=== PATIENT | male | born 1970 | race Two or more races ===

== ENCOUNTER 2019-03-26 04:32 | Emergency (ER) | payer OTHER ==
[~2019-03-26] VITALS: Ht 200.7 cm; Wt 95.3 kg
[2019-03-26 04:40] VITALS: BP 146/89
[2019-03-26] MEDS ORDERED: ONDANSETRON HCL 4 MG/2 ML VIAL IV ONE (05:30)
[2019-03-26] MEDS ORDERED: MORPHINE SULFATE 4 MG/ML SYR/VIAL IV ONE (05:30)
[2019-03-26 05:54] LABS: Basophils # (auto) 0 uL; Basophils % (auto) 1.1 % (0.0-2.0); Eosinophils # (auto) 0.1 uL; Eosinophils % (auto) 2.3 % (0.0-7.0); Hematocrit 42.1 % (41.0-53.0); Hemoglobin 14.4 g/dL (13.5-17.5); Lymphocytes # (auto) 0.7 uL; Lymphocytes % (auto) 19.2 % (10.0-50.0); Mean Corpuscular Hemoglobin 31.2 pg (28.0-32.0); Mean Corpuscular Hgb Conc. 34.2 g/dL (32.0-36.0); Mean Corpuscular Volume 91.2 fL (80.0-100.0); Monocytes # (auto) 0.5 uL; Monocytes % (auto) 12.8 % (0.0-12.0); Neutrophils # (auto) 2.4 uL; Neutrophils % (auto) 64.6 % (37.0-80.0); Nucleated Red Blood Cells % 0.2 %; Platelet Count (auto) 149 10^3/uL (140-450); Red Blood Cells 4.62 10^6/uL (4.5-5.90); White Blood Cell 3.7 10^3/uL (4.4-10.8)
[2019-03-26 06:11] LABS: Albumin 3.5 g/dL (3.4-5.0); Calcium 8.1 mg/dL (8.5-10.1); INR 1.01 (0.9-1.15); Partial Thromboplastin Time 25.6 sec (23.64-32.05)
[2019-03-26 06:23] LABS: Bilirubin, Total 0.8 mg/dL (0.2-1.0); Total Protein 7.7 g/dL (6.4-8.2)
[2019-03-26 07:45] LABS: BUN/Creatinine Ratio 10.7
== END 2019-03-26 07:07 | disposition left against medical advice (07) ==
LOC: ER 04:32 → EDBD 04:32 → ER 07:07
DX: M79.601 Pain in right arm (principal); R51 Headache; Z53.21 Procedure and treatment not carried out due to patient leaving prior to being seen by health care provider; W19.XXXA Unspecified fall, initial encounter; Y93.89 Activity, other specified; Y92.89 Other specified places as the place of occurrence of the external cause; Y99.8 Other external cause status
CPT/HCPCS: 36415; 70450; 72125; 73090; 80053; 80320; 85025; 85610; 85730; 99281; J2270; J2405

== ENCOUNTER 2019-12-26 20:50 | Emergency (ER) | payer OTHER ==
[~2019-12-26] VITALS: Ht 195.6 cm; Wt 79.8 kg
[2019-12-26 22:14] VITALS: BP 129/81
== END 2019-12-27 04:54 | disposition left against medical advice (07) ==
LOC: EDBD 20:50 → ER 20:50
DX: R07.89 Other chest pain (principal); F41.9 Anxiety disorder, unspecified

== ENCOUNTER 2020-08-21 17:03 | Emergency (ER) | payer OTHER ==
[~2020-08-21] VITALS: Ht 190.5 cm; Wt 81.6 kg
[2020-08-21 17:25] VITALS: BP 112/80
== END 2020-08-21 17:52 | disposition left against medical advice (07) ==
LOC: EDBD 17:03 → ER 17:03
DX: R51.9 Headache, unspecified (principal); Z53.21 Procedure and treatment not carried out due to patient leaving prior to being seen by health care provider

== ENCOUNTER 2020-08-21 20:30 | Emergency (ER) | payer OTHER ==
[~2020-08-21] VITALS: Ht 193 cm; Wt 81.6 kg
[2020-08-21] MEDS ORDERED: LORazepam 2MG/ML-1ML VIAL IV ONE (21:00)
[2020-08-21 21:08] LABS: Basophils # (auto) 0.1 10 ^3/uL (0-0.2); Basophils % (auto) 1.9 % (0.0-2.0); Eosinophils # (auto) 0.1 10 ^3/uL (0-0.8); Eosinophils % (auto) 0.8 % (0.0-7.0); Hematocrit 43.3 % (41.0-53.0); Lymphocytes # (auto) 2.2 10 ^3/uL (0.4-5.4); Lymphocytes % (auto) 33.1 % (10.0-50.0); Mean Corpuscular Hgb Conc. 34.7 g/dL (32.0-36.0); Mean Corpuscular Volume 95.1 fL (80.0-100.0); Monocytes # (auto) 0.7 10 ^3/uL (0-1.3); Monocytes % (auto) 9.7 % (0.0-12.0); Neutrophils # (auto) 3.7 10 ^3/uL (1.6-8.6); Neutrophils % (auto) 54.5 % (37.0-80.0); Nucleated Red Blood Cells % 0.1 %; Platelet Count (auto) 168 10^3/uL (140-450); Red Blood Cells 4.55 10^6/uL (4.5-5.90); Red Cell Distribution Width 13.6 % (11.8-14.3); White Blood Cell 6.8 10^3/uL (4.4-10.8)
[2020-08-21 21:24] LABS: Albumin 3.8 g/dL (3.4-5.0); Calcium 8.8 mg/dL (8.5-10.1); Potassium 3.1 mmol/L (3.5-5.1)
[2020-08-21 21:27] LABS: BUN/Creatinine Ratio 6.2; Bilirubin, Total 2.2 mg/dL (0.2-1.0); Total Protein 8.1 g/dL (6.4-8.2)
[2020-08-21] MEDS ORDERED: KETOROLAC TROMETH 30 MG/ML 1ML VIAL IV ONE (21:45)
[2020-08-22] MEDS ORDERED: POTASSIUM EFFERVESENT TAB 25 MEQ PO ONE (01:30)
[2020-08-22] MEDS ORDERED: SODIUM CHLORIDE 0.9% 1,000 ML IV ONE (02:00)
[2020-08-22 05:00] VITALS: BP 124/75
== END 2020-08-22 06:31 | disposition home or self-care (01) ==
LOC: EDBD 20:30 → ER 20:44
DX: S09.8XXA Other specified injuries of head, initial encounter (principal); F10.920 Alcohol use, unspecified with intoxication, uncomplicated; E87.6 Hypokalemia; X58.XXXA Exposure to other specified factors, initial encounter; Y93.89 Activity, other specified; Y92.89 Other specified places as the place of occurrence of the external cause; Y99.8 Other external cause status
CPT/HCPCS: 36415; 70450; 72125; 73700; 80053; 80320; 85025; 93005; 96361; 96374; 96375; 99285; J1885; J2060

== ENCOUNTER 2020-10-31 09:52 | Inpatient (IN) | payer OTHER ==
[~2020-10-31] VITALS: Ht 198.1 cm; Wt 95.1 kg
[2020-10-31] MEDS ORDERED: chlordiazePOXIDE HCL 25 MG CAP PO ONE (10:15)
[2020-10-31] MEDS ORDERED: SODIUM CHLORIDE 0.9% 1,000 ML IV ONE ×2 (10:15)
[2020-10-31 10:41] LABS: Eosinophils # (auto) 0 10 ^3/uL (0-0.8); Lymphocytes # (auto) 0.7 10 ^3/uL (0.4-5.4); Mean Corpuscular Volume 100.5 fL (80.0-100.0)
[2020-10-31 10:42] LABS: Basophils # (auto) 0.1 10 ^3/uL (0-0.2); Basophils % (auto) 0.8 % (0.0-2.0); Eosinophils % (auto) 0.1 % (0.0-7.0); Hematocrit 35.8 % (41.0-53.0); Hemoglobin 12.5 g/dL (13.5-17.5); Mean Corpuscular Hemoglobin 34.9 pg (28.0-32.0); Mean Corpuscular Hgb Conc. 34.7 g/dL (32.0-36.0); Monocytes # (auto) 1.3 10 ^3/uL (0-1.3); Monocytes % (auto) 12.4 % (0.0-12.0); Neutrophils # (auto) 8.1 10 ^3/uL (1.6-8.6); Neutrophils % (auto) 79.7 % (37.0-80.0); Nucleated Red Blood Cells % 0.1 %; Red Blood Cells 3.57 10^6/uL (4.5-5.90); Red Cell Distribution Width 16.4 % (11.8-14.3); White Blood Cell 10.2 10^3/uL (4.4-10.8)
[2020-10-31 10:55] LABS: INR 1.56 (0.9-1.15); Partial Thromboplastin Time 38.7 sec (23.0-31.2)
[2020-10-31 11:06] LABS: Albumin 2.1 g/dL (3.4-5.0); Anion Gap 17 (5-15); Blood Urea Nitrogen 8 mg/dL (7-18); Carbon Dioxide 29 mmol/L (21-32); Chloride 87 mmol/L (98-107); Glucose 103 mg/dL (74-106); Sodium 133 mmol/L (136-145)
[2020-10-31 11:11] LABS: Alanine Aminotransferase 51 U/L (16-61); Alkaline Phosphatase 178 U/L (45-117); Aspartate Aminotransferase 319 U/L (15-37); Bilirubin, Total 19.4 mg/dL (0.2-1.0); GFR African American 132 mL/min; GFR Non-African American 109 mL/min; Total Protein 6.6 g/dL (6.4-8.2)
[2020-10-31 11:23] LABS: Potassium 2.7 mmol/L (3.5-5.1)
[2020-10-31] MEDS ORDERED: POTASSIUM EFFERVESENT TAB 25 MEQ PO ONE (11:30)
[2020-10-31] MEDS ORDERED: MORPHINE SULF INJ 2 MG/ML SYRINGE 1ML IV PRN (17:00)
[2020-10-31] MEDS ORDERED: NITROGLYCERIN 0.4 MG SL TAB SL PRN (17:00)
[2020-10-31] MEDS ORDERED: PHYTONADIONE (VIT K)10 MG/ML 1ML VIAL IV ONE (17:30)
[2020-10-31] MEDS ORDERED: phytonadione 10 MG in SODIUM CHL 0.9% 50 ML IV ONE (18:00)
[2020-10-31] MEDS: SODIUM CHLORIDE 0.9% 1,000 ML IV SCH (18:50)
[2020-10-31] MEDS: FOLIC ACID 1 MG, MULTIPLE VITAMIN 10 ML, MAGNESIUM SULF SDV 50% 8 MEQ, THIAMINE INJ 100... INJ SCH ×5 (18:53)
[2020-10-31 20:18] LABS: Urine Bacteria NONE SEEN /hpf (None Seen); Urine Blood Negative /uL (Negative); Urine Hyaline Cast FEW /lpf (0 - 2); Urine Mucus FEW (None Seen); Urine Specific Gravity 1.029 (1.001-1.035); Urine WBC 4 /hpf (0 - 3)
[2020-10-31] MEDS: chlordiazePOXIDE HCL 25 MG CAP PO SCH (21:42)
[2020-10-31] MEDS: PANTOPRAZOLE 40 MG/10 ML VIAL INJ IV SCH (22:26)
[2020-11-01] VITALS (9 sets, daily range): BP systolic 118–142; BP diastolic 63–76
[2020-11-01] MEDS: chlordiazePOXIDE HCL 25 MG CAP PO SCH ×5 (01:15→23:21)
[2020-11-01] MEDS: LORazepam 2MG/ML-1ML VIAL IV PRN ×2 (01:16→21:32)
[2020-11-01 05:47] LABS: Calcium 7.2 mg/dL (8.5-10.1); INR 1.67 (0.9-1.15); Magnesium 1.7 mg/dL (1.6-2.6)
[2020-11-01 06:00] LABS: Basophils # (auto) 0.1 10 ^3/uL (0-0.2); Basophils % (auto) 0.8 % (0.0-2.0); Eosinophils # (auto) 0 10 ^3/uL (0-0.8); Eosinophils % (auto) 0.3 % (0.0-7.0); Lymphocytes # (auto) 1.3 10 ^3/uL (0.4-5.4)
[2020-11-01 06:04] LABS: Hemoglobin 10.8 g/dL (13.5-17.5); Lymphocytes % (auto) 13.4 % (10.0-50.0); Mean Corpuscular Volume 99.7 fL (80.0-100.0); Monocytes % (auto) 9.8 % (0.0-12.0); Neutrophils # (auto) 7.6 10 ^3/uL (1.6-8.6); Neutrophils % (auto) 75.7 % (37.0-80.0); Red Blood Cells 3.01 10^6/uL (4.5-5.90)
[2020-11-01 06:08] LABS: Total Protein 5.3 g/dL (6.4-8.2)
[2020-11-01 06:35] LABS: Potassium 2.4 mmol/L (3.5-5.1)
[2020-11-01] MEDS: SODIUM CHLORIDE 0.9% 1,000 ML IV SCH ×2 (06:50→20:37)
[2020-11-01] MEDS: POTASSIUM CHL 20MEQ/100ML 100 ML IV SCH ×3 (06:52→11:10)
[2020-11-01] MEDS: PANTOPRAZOLE 40 MG/10 ML VIAL INJ IV SCH ×2 (08:56→21:31)
[2020-11-01] MEDS ORDERED: SODIUM CHLORIDE LOCK 10 ML ONE (09:10)
[2020-11-01] MEDS ORDERED: diphenhdrAMINE HCL 50 MG/1 ML VL ONE (09:10)
[2020-11-01] MEDS ORDERED: LIDOCAINE VISCOUS 2% 15ML UD ONE (09:10)
[2020-11-01 11:47] LABS: INR 1.61 (0.9-1.15); Partial Thromboplastin Time 39.9 sec (23.0-31.2)
[2020-11-01] MEDS: FOLIC ACID 1 MG, MULTIPLE VITAMIN 10 ML, MAGNESIUM SULF SDV 50% 8 MEQ, THIAMINE INJ 100... INJ SCH ×5 (13:37)
[2020-11-01] MEDS ORDERED: MAGNESIUM SULFATE 1GM/100ML 100 ML IV ONE (14:30)
[2020-11-01 15:07] LABS: Amylase 22 U/L (25-115); Lipase 227 U/L (73-393)
[2020-11-01] MEDS: MIDAZOLAM HCL 5 MG/ML-1ML VIAL ONE ×3 (15:47→15:53)
[2020-11-01] MEDS: fentaNYL CITRATE 100 MCG/2 ML VL ONE ×3 (15:47→15:53)
[2020-11-01] MEDS: SUCRALFATE 1 GM/10 ML ORAL SUSP PO SCH ×2 (18:40→21:31)
[2020-11-02 05:00] VITALS: BP 114/82
[2020-11-02] MEDS: chlordiazePOXIDE HCL 25 MG CAP PO SCH ×3 (06:29→18:00)
[2020-11-02] MEDS: MORPHINE SULF INJ 2 MG/ML SYRINGE 1ML IV PRN ×2 (06:44→07:28)
[2020-11-02] MEDS: SUCRALFATE 1 GM/10 ML ORAL SUSP PO SCH ×4 (07:28→21:55)
[2020-11-02] MEDS: PANTOPRAZOLE 40 MG/10 ML VIAL INJ IV SCH ×2 (09:44→21:54)
[2020-11-02 10:07] VITALS: BP 106/79
[2020-11-02 10:33] LABS: Hematocrit 27.4 % (41.0-53.0); Hemoglobin 9.9 g/dL (13.5-17.5)
[2020-11-02 10:38] LABS: INR 1.66 (0.9-1.15)
[2020-11-02 10:44] LABS: Magnesium 2.5 mg/dL (1.6-2.6); Potassium 3.1 mmol/L (3.5-5.1)
[2020-11-02 10:55] LABS: Bilirubin, Direct 22.9 mg/dL (0-0.2); Total Protein 5.6 g/dL (6.4-8.2)
[2020-11-02] MEDS: LORazepam 2MG/ML-1ML VIAL IV PRN (11:00)
[2020-11-02 11:03] LABS: Bilirubin, Total 24.5 mg/dL (0.2-1.0)
[2020-11-02] MEDS ORDERED: LORazepam 2MG/ML-1ML VIAL IV ONE (11:18)
[2020-11-02] MEDS ORDERED: SODIUM CHLORIDE 0.9% 1,000 ML IV SCH (11:30)
[2020-11-02] MEDS ORDERED: PHYTONADIONE (VIT K)10 MG/ML 1ML VIAL SUBCUT ONE (11:45)
[2020-11-02] MEDS: POTASSIUM CHL 20MEQ/100ML 100 ML IV SCH ×2 (11:45→14:30)
[2020-11-02 12:11] LABS: Basophils # (auto) 0.1 10 ^3/uL (0-0.2); Basophils % (auto) 0.8 % (0.0-2.0); Eosinophils # (auto) 0.1 10 ^3/uL (0-0.8); Nucleated Red Blood Cells % 0.1 %
[2020-11-02 12:12] LABS: Eosinophils % (auto) 0.4 % (0.0-7.0); Lymphocytes % (auto) 7.2 % (10.0-50.0); Mean Corpuscular Hemoglobin 35.6 pg (28.0-32.0); Mean Corpuscular Hgb Conc. 35.7 g/dL (32.0-36.0); Mean Corpuscular Volume 99.9 fL (80.0-100.0); Monocytes # (auto) 1.2 10 ^3/uL (0-1.3); Monocytes % (auto) 8.7 % (0.0-12.0); Neutrophils # (auto) 11.8 10 ^3/uL (1.6-8.6); Neutrophils % (auto) 82.9 % (37.0-80.0); Red Cell Distribution Width 15.9 % (11.8-14.3); White Blood Cell 14.2 10^3/uL (4.4-10.8)
[2020-11-02 12:15] LABS: Albumin 1.9 g/dL (3.4-5.0); Calcium 7.8 mg/dL (8.5-10.1); Potassium 3.1 mmol/L (3.5-5.1)
[2020-11-02 12:41] LABS: BUN/Creatinine Ratio 12.7; Bilirubin, Total 23.9 mg/dL (0.2-1.0); Total Protein 5.7 g/dL (6.4-8.2)
[2020-11-02 13:00] VITALS: BP 126/70
[2020-11-02] MEDS: FOLIC ACID 1 MG, MULTIPLE VITAMIN 10 ML, MAGNESIUM SULF SDV 50% 8 MEQ, THIAMINE INJ 100... INJ SCH ×5 (16:46)
[2020-11-02 17:00] VITALS: BP 138/51
[2020-11-02] MEDS: D5W/ SOD CHL 0.9%/KCL 20MEQ 1,000 ML IV SCH (20:03)
[2020-11-02] MEDS: LACTULOSE 20Gm/30ML SOLN PO SCH (21:54)
[2020-11-02 22:00] VITALS: BP 138/102
[2020-11-03] VITALS (85 sets, daily range): BP systolic 83–145; BP diastolic 45–83
[2020-11-03] MEDS: LACTULOSE 10g/15ml SOLN PR SCH ×4 (00:30→18:00)
[2020-11-03] MEDS: LACTULOSE 20Gm/30ML SOLN PO SCH ×7 (02:00→22:05)
[2020-11-03 05:01] LABS: Basophils # (auto) 0.1 10 ^3/uL (0-0.2); Basophils % (auto) 0.4 % (0.0-2.0); Eosinophils # (auto) 0 10 ^3/uL (0-0.8); Eosinophils % (auto) 0.2 % (0.0-7.0); Hemoglobin 9.3 g/dL (13.5-17.5); Neutrophils # (auto) 15.1 10 ^3/uL (1.6-8.6)
[2020-11-03 05:04] LABS: Hematocrit 26.1 % (41.0-53.0); Lymphocytes % (auto) 5.3 % (10.0-50.0); Mean Corpuscular Hemoglobin 36.2 pg (28.0-32.0); Mean Corpuscular Hgb Conc. 35.8 g/dL (32.0-36.0); Mean Corpuscular Volume 101.1 fL (80.0-100.0); Monocytes # (auto) 2.3 10 ^3/uL (0-1.3); Monocytes % (auto) 12.5 % (0.0-12.0); Neutrophils % (auto) 81.6 % (37.0-80.0); Nucleated Red Blood Cells % 0.1 %; Red Blood Cells 2.58 10^6/uL (4.5-5.90); Red Cell Distribution Width 16.4 % (11.8-14.3); White Blood Cell 18.5 10^3/uL (4.4-10.8)
[2020-11-03 05:17] LABS: INR 1.66 (0.9-1.15)
[2020-11-03 05:25] LABS: Calcium 7.3 mg/dL (8.5-10.1)
[2020-11-03 05:39] LABS: Bilirubin, Total 23.3 mg/dL (0.2-1.0); Total Protein 5.2 g/dL (6.4-8.2)
[2020-11-03 05:43] LABS: Potassium 2.8 mmol/L (3.5-5.1)
[2020-11-03] MEDS: D5W/ SOD CHL 0.9%/KCL 20MEQ 1,000 ML IV SCH ×4 (05:48→21:08)
[2020-11-03] MEDS: SUCRALFATE 1 GM/10 ML ORAL SUSP PO SCH ×5 (05:53→22:05)
[2020-11-03] MEDS: POTASSIUM CHL 20MEQ/100ML 100 ML IV SCH ×4 (06:46→14:04)
[2020-11-03] MEDS ORDERED: PHYTONADIONE (VIT K)10 MG/ML 1ML VIAL SUBCUT ONE (09:15)
[2020-11-03] MEDS ORDERED: phytonadione 10 MG in SODIUM CHL 0.9% 50 ML IV ONE (09:30)
[2020-11-03] MEDS ORDERED: ROCURONIUM 10MG/ML 10ML VIAL IV ONE (09:59)
[2020-11-03] MEDS ORDERED: ETOMIDATE (2MG/ML) 20ML VIAL IV ONE ×3 (09:59→10:15)
[2020-11-03 10:02] LABS: Hematocrit 27.6 % (41.0-53.0)
[2020-11-03 10:03] LABS: Magnesium 2.4 mg/dL (1.6-2.6); Potassium 3.2 mmol/L (3.5-5.1)
[2020-11-03 10:09] LABS: Lactic Acid w/Reflex 2.2 mmol/L (0.4-2.0)
[2020-11-03] MEDS ORDERED: SUCCINYLCHOLINE CHLORIDE 20 MG/ML 10ML VIAL IV ONE (10:15)
[2020-11-03 10:17] LABS: Hepatitis B Surface Antibody Negative
[2020-11-03] MEDS ORDERED: PIPERACILLIN-TAZOB 3.375GM 100 ML IV ONE (10:30)
[2020-11-03] MEDS: MIDAZOLAM DRIP 50 mg/50mL 50 ML IV SCH ×2 (10:35→20:00)
[2020-11-03] MEDS: fentaNYL Drip 2500mCg/250mlNS 250 ML IV SCH (10:40)
[2020-11-03 10:51] LABS: Hepatitis A Total Antibody Positive
[2020-11-03] MEDS ORDERED: NOREPINEPHRINE 8 MG/250ML KIT 250 ML IV ONE (11:01)
[2020-11-03] MEDS: PANTOPRAZOLE 40 MG/10 ML VIAL INJ IV SCH ×2 (11:29→22:05)
[2020-11-03] MEDS: NOREPINEPHRINE 8 MG/250ML KIT 250 ML IV SCH (11:30)
[2020-11-03 11:55] LABS: Urine Bacteria FEW /hpf (None Seen); Urine Blood 3+ /uL (Negative); Urine Mucus FEW (None Seen); Urine Specific Gravity 1.023 (1.001-1.035); Urine WBC 27 /hpf (0 - 3)
[2020-11-03] MEDS: FOLIC ACID 1 MG, MULTIPLE VITAMIN 10 ML, MAGNESIUM SULF SDV 50% 8 MEQ, THIAMINE INJ 100... INJ SCH ×5 (12:23)
[2020-11-03 12:26] LABS: Hemoglobin 8.5 g/dL (13.5-17.5)
[2020-11-03 13:50] LABS: Hepatitis B Surface Antigen Negative (Negative); Hepatitis C Antibody Negative (Negative)
[2020-11-03] MEDS ORDERED: FUROSEMIDE 20 MG/2 ML VIAL IV ONE (16:00)
[2020-11-03] MEDS ORDERED: FUROSEMIDE 20 MG/2 ML VIAL ONE (16:02)
[2020-11-03 17:02] LABS: Hemoglobin 8.5 g/dL (13.5-17.5)
[2020-11-03 17:04] LABS: Hematocrit 23.9 % (41.0-53.0)
[2020-11-03] MEDS: PIPERACILLIN-TAZOB 3.375GM 100 ML IV SCH (18:00)
[2020-11-03] MEDS ORDERED: diphenhdrAMINE HCL 50 MG/1 ML VL IV ONE (18:15)
[2020-11-03] MEDS ORDERED: ACETAMINOPHEN IV 1000 MG/100ML (10MG/ML) IV ONE (18:15)
[2020-11-03 19:02] LABS: Hematocrit 22.3 % (41.0-53.0); Hemoglobin 7.9 g/dL (13.5-17.5)
[2020-11-03] MEDS ORDERED: ACETAMINOPHEN 500 MG TAB PO PRN (20:15)
[2020-11-04] VITALS (106 sets, daily range): BP systolic 73–144; BP diastolic 33–69
[2020-11-04] MEDS: MIDAZOLAM DRIP 50 mg/50mL 50 ML IV SCH ×5 (00:01→21:31)
[2020-11-04] MEDS: PIPERACILLIN-TAZOB 3.375GM 100 ML IV SCH ×4 (00:07→17:34)
[2020-11-04] MEDS: NOREPINEPHRINE 8 MG/250ML KIT 250 ML IV SCH ×4 (01:27→20:00)
[2020-11-04] MEDS: LACTULOSE 20Gm/30ML SOLN PO SCH ×6 (02:05→22:18)
[2020-11-04] MEDS ORDERED: ALBUMIN 25% 100 ML IV ONE (03:15)
[2020-11-04] MEDS: fentaNYL Drip 2500mCg/250mlNS 250 ML IV SCH ×2 (03:49→23:30)
[2020-11-04 04:54] LABS: Albumin 1.8 g/dL (3.4-5.0); BUN/Creatinine Ratio 9.8; Calcium 6.7 mg/dL (8.5-10.1); Magnesium 2.2 mg/dL (1.6-2.6); Potassium 3.3 mmol/L (3.5-5.1)
[2020-11-04 04:57] LABS: INR 1.48 (0.9-1.15)
[2020-11-04 05:00] LABS: Hemoglobin 9.3 g/dL (13.5-17.5); White Blood Cell 22.5 10^3/uL (4.4-10.8)
[2020-11-04 05:02] LABS: Mean Corpuscular Hemoglobin 36.3 pg (28.0-32.0); Mean Corpuscular Hgb Conc. 35.7 g/dL (32.0-36.0); Mean Corpuscular Volume 101.7 fL (80.0-100.0); Red Blood Cells 2.56 10^6/uL (4.5-5.90); Red Cell Distribution Width 15.8 % (11.8-14.3)
[2020-11-04 05:07] LABS: Bilirubin, Total 23.8 mg/dL (0.2-1.0); Total Protein 4.7 g/dL (6.4-8.2)
[2020-11-04 05:12] LABS: Basophils % (manual) 0 (0.0-2.0); Blast Cells 0; Eosinophils % (manual) 0 (0-7); Metamyelocytes % 0; Myelocytes % 0; Promyelocytes % 0; Reactive Lymphocytes 0
[2020-11-04 05:59] LABS: Band Neutrophils % (manual) 32; Lymphocytes % (manual) 12 (10.0-50.0); Monocytes % (manual) 10 (0-12)
[2020-11-04] MEDS: LACTULOSE 10g/15ml SOLN PR SCH ×2 (06:00)
[2020-11-04] MEDS: VASOPRESSIN 50 UNITS in D5W 5% 247.5 ML IV SCH (07:00)
[2020-11-04] MEDS ORDERED: POTASSIUM CHL 20MEQ/100ML 100 ML IV ONE (07:00)
[2020-11-04] MEDS: D5W/ SOD CHL 0.9%/KCL 20MEQ 1,000 ML IV SCH (07:14)
[2020-11-04] MEDS: PHENYLEPHRINE IV 250 ML IV SCH ×2 (09:45→18:05)
[2020-11-04] MEDS ORDERED: VANCOMYCIN PER PHARMACY 0 MG IV SCH (10:30)
[2020-11-04] MEDS ORDERED: FUROSEMIDE 20 MG/2 ML VIAL IV ONE (10:30)
[2020-11-04] MEDS ORDERED: phytonadione 10 MG in SODIUM CHL 0.9% 50 ML IV ONE (10:30)
[2020-11-04] MEDS ORDERED: SOD CHL 0.45% WITH 20MEQ KCL 1,000 ML IV SCH (10:30)
[2020-11-04] MEDS: PANTOPRAZOLE 40 MG/10 ML VIAL INJ IV SCH ×2 (10:40→22:23)
[2020-11-04] MEDS: SUCRALFATE 1 GM/10 ML ORAL SUSP PO SCH ×3 (10:41→22:18)
[2020-11-04] MEDS: ALBUMIN 25% 100 ML IV SCH ×2 (10:43→17:29)
[2020-11-04] MEDS: VANCOMYCIN 1GM/250ML 250 ML IV SCH ×2 (11:28→22:24)
[2020-11-04 11:49] LABS: Hemoglobin 7.9 g/dL (13.5-17.5)
[2020-11-04 11:51] LABS: Hematocrit 22.5 % (41.0-53.0)
[2020-11-04 12:17] LABS: Lactic Acid w/Reflex 3.4 mmol/L (0.4-2.0)
[2020-11-04] MEDS: FOLIC ACID 1 MG, MULTIPLE VITAMIN 10 ML, MAGNESIUM SULF SDV 50% 8 MEQ, THIAMINE INJ 100... INJ SCH ×5 (12:53)
[2020-11-04] MEDS: DOPamine 1600MCG/ML D5W 250 ML IV SCH (13:23)
[2020-11-04] MEDS: predniSONE 20 MG TAB NG SCH (13:24)
[2020-11-04] MEDS: OCTREOTIDE ACETATE 100 MCG/ML VL SUBCUT SCH ×2 (15:48→22:23)
[2020-11-04 17:51] LABS: Hepatitis B Core Total AB Negative
[2020-11-04 18:45] LABS: Hematocrit 20.4 % (41.0-53.0); Hemoglobin 7.3 g/dL (13.5-17.5)
[2020-11-05] VITALS (105 sets, daily range): BP systolic 86–146; BP diastolic 39–80
[2020-11-05] MEDS: NOREPINEPHRINE 8 MG/250ML KIT 250 ML IV SCH (00:41)
[2020-11-05] MEDS: PIPERACILLIN-TAZOB 3.375GM 100 ML IV SCH ×4 (00:42→18:00)
[2020-11-05] MEDS: MIDAZOLAM DRIP 50 mg/50mL 50 ML IV SCH ×3 (01:33→21:47)
[2020-11-05] MEDS: LACTULOSE 20Gm/30ML SOLN PO SCH ×6 (01:35→21:47)
[2020-11-05] MEDS: PHENYLEPHRINE IV 250 ML IV SCH ×3 (02:25→19:05)
[2020-11-05] MEDS: ALBUMIN 25% 100 ML IV SCH (03:49)
[2020-11-05 04:35] LABS: Red Cell Distribution Width 16.9 % (11.8-14.3)
[2020-11-05 04:37] LABS: Hematocrit 25.3 % (41.0-53.0); Hemoglobin 8.9 g/dL (13.5-17.5); Mean Corpuscular Hemoglobin 34.9 pg (28.0-32.0); Mean Corpuscular Hgb Conc. 35.3 g/dL (32.0-36.0); Mean Corpuscular Volume 98.8 fL (80.0-100.0); Red Blood Cells 2.56 10^6/uL (4.5-5.90); White Blood Cell 22.3 10^3/uL (4.4-10.8)
[2020-11-05 04:39] LABS: Hematocrit 24.8 % (41.0-53.0)
[2020-11-05 04:46] LABS: Basophils % (manual) 0 (0.0-2.0); Blast Cells 0; Lymphocytes % (manual) 0 (10.0-50.0); Metamyelocytes % 0; Myelocytes % 0; Promyelocytes % 0; Reactive Lymphocytes 0
[2020-11-05 04:54] LABS: INR 1.64 (0.9-1.15)
[2020-11-05 05:05] LABS: Potassium 3.4 mmol/L (3.5-5.1)
[2020-11-05 05:15] LABS: Lactic Acid w/Reflex 2.2 mmol/L (0.4-2.0)
[2020-11-05 05:16] LABS: Albumin 2.1 g/dL (3.4-5.0); Calcium 6.8 mg/dL (8.5-10.1); Magnesium 2.3 mg/dL (1.6-2.6)
[2020-11-05 05:27] LABS: Total Protein 4.8 g/dL (6.4-8.2)
[2020-11-05 05:29] LABS: Bilirubin, Total 27.8 mg/dL (0.2-1.0)
[2020-11-05 05:52] LABS: Band Neutrophils % (manual) 11; Eosinophils % (manual) 3 (0-7); Monocytes % (manual) 7 (0-12)
[2020-11-05] MEDS: OCTREOTIDE ACETATE 100 MCG/ML VL SUBCUT SCH ×3 (06:17→21:49)
[2020-11-05] MEDS: VASOPRESSIN 50 UNITS in D5W 5% 247.5 ML IV SCH (06:45)
[2020-11-05] MEDS: SUCRALFATE 1 GM/10 ML ORAL SUSP PO SCH ×4 (06:45→21:47)
[2020-11-05] MEDS: POTASSIUM CHL 20MEQ/100ML 100 ML IV SCH ×2 (10:05→11:30)
[2020-11-05] MEDS ORDERED: PHYTONADIONE (VIT K)10 MG/ML 1ML VIAL IV ONE (10:45)
[2020-11-05] MEDS ORDERED: phytonadione 10 MG in SODIUM CHL 0.9% 50 ML IV ONE (11:00)
[2020-11-05] MEDS: predniSONE 20 MG TAB NG SCH (11:30)
[2020-11-05] MEDS: PANTOPRAZOLE 40 MG/10 ML VIAL INJ IV SCH ×2 (11:30→21:48)
[2020-11-05] MEDS: VANCOMYCIN 1GM/250ML 250 ML IV SCH ×2 (11:30→23:11)
[2020-11-05 13:00] LABS: Hematocrit 24.9 % (41.0-53.0)
[2020-11-05] MEDS: FOLIC ACID 1 MG, MULTIPLE VITAMIN 10 ML, MAGNESIUM SULF SDV 50% 8 MEQ, THIAMINE INJ 100... INJ SCH ×5 (13:00)
[2020-11-05] MEDS: DOPamine 1600MCG/ML D5W 250 ML IV SCH (13:00)
[2020-11-05 13:02] LABS: Hemoglobin 8.8 g/dL (13.5-17.5)
[2020-11-05 22:03] LABS: Hematocrit 24.7 % (41.0-53.0)
[2020-11-05 22:08] LABS: Hemoglobin 8.7 g/dL (13.5-17.5)
[2020-11-06] VITALS (103 sets, daily range): BP systolic 87–133; BP diastolic 43–75
[2020-11-06] MEDS: PIPERACILLIN-TAZOB 3.375GM 100 ML IV SCH ×4 (00:28→20:03)
[2020-11-06] MEDS: MIDAZOLAM DRIP 50 mg/50mL 50 ML IV SCH ×7 (01:00→23:55)
[2020-11-06] MEDS: NOREPINEPHRINE 8 MG/250ML KIT 250 ML IV SCH ×3 (01:00→17:03)
[2020-11-06] MEDS: LACTULOSE 20Gm/30ML SOLN PO SCH ×6 (02:00→22:36)
[2020-11-06] MEDS: DOPamine 1600MCG/ML D5W 250 ML IV SCH (02:36)
[2020-11-06] MEDS: PHENYLEPHRINE IV 250 ML IV SCH ×3 (03:25→20:05)
[2020-11-06 04:29] LABS: Hemoglobin 8.4 g/dL (13.5-17.5)
[2020-11-06 04:32] LABS: Hematocrit 23.7 % (41.0-53.0); Mean Corpuscular Hemoglobin 34.9 pg (28.0-32.0); Mean Corpuscular Hgb Conc. 35.6 g/dL (32.0-36.0); Mean Corpuscular Volume 98.1 fL (80.0-100.0); Red Blood Cells 2.42 10^6/uL (4.5-5.90); Red Cell Distribution Width 17.5 % (11.8-14.3); White Blood Cell 25.3 10^3/uL (4.4-10.8)
[2020-11-06 04:40] LABS: Calcium 7.1 mg/dL (8.5-10.1); Potassium 3.3 mmol/L (3.5-5.1)
[2020-11-06 04:43] LABS: INR 1.37 (0.9-1.15)
[2020-11-06 04:46] LABS: Basophils % (manual) 0 (0.0-2.0); Blast Cells 0; Promyelocytes % 0; Reactive Lymphocytes 0
[2020-11-06 04:54] LABS: BUN/Creatinine Ratio 10.2; Total Protein 4.7 g/dL (6.4-8.2)
[2020-11-06 05:42] LABS: Band Neutrophils % (manual) 26; Lymphocytes % (manual) 6 (10.0-50.0); Monocytes % (manual) 21 (0-12)
[2020-11-06 05:43] LABS: Eosinophils % (manual) 0 (0-7); Metamyelocytes % 1; Myelocytes % 1
[2020-11-06] MEDS ORDERED: POTASSIUM CHL 20MEQ/100ML 100 ML IV ONE ×2 (06:00→08:00)
[2020-11-06] MEDS: OCTREOTIDE ACETATE 100 MCG/ML VL SUBCUT SCH ×3 (06:27→22:38)
[2020-11-06] MEDS: VASOPRESSIN 50 UNITS in D5W 5% 247.5 ML IV SCH (07:00)
[2020-11-06] MEDS: SUCRALFATE 1 GM/10 ML ORAL SUSP PO SCH ×4 (08:16→22:37)
[2020-11-06] MEDS: predniSONE 20 MG TAB NG SCH (10:07)
[2020-11-06] MEDS: PANTOPRAZOLE 40 MG/10 ML VIAL INJ IV SCH ×2 (10:08→22:36)
[2020-11-06] MEDS ORDERED: POTASSIUM CHL 20MEQ/100ML 100 ML IV SCH (10:15)
[2020-11-06] MEDS: FOLIC ACID 1 MG, MULTIPLE VITAMIN 10 ML, MAGNESIUM SULF SDV 50% 8 MEQ, THIAMINE INJ 100... INJ SCH ×5 (12:05)
[2020-11-06] MEDS: VANCOMYCIN 1GM/250ML 250 ML IV SCH ×2 (12:22→23:26)
[2020-11-06] MEDS: fentaNYL Drip 2500mCg/250mlNS 250 ML IV SCH (13:06)
[2020-11-07] VITALS (108 sets, daily range): BP systolic 82–139; BP diastolic 40–67
[2020-11-07] MEDS: LACTULOSE 20Gm/30ML SOLN PO SCH ×6 (02:00→23:20)
[2020-11-07] MEDS: NOREPINEPHRINE 8 MG/250ML KIT 250 ML IV SCH ×3 (02:53→16:37)
[2020-11-07] MEDS: MIDAZOLAM DRIP 50 mg/50mL 50 ML IV SCH ×4 (03:49→17:35)
[2020-11-07] MEDS: PHENYLEPHRINE IV 250 ML IV SCH (04:25)
[2020-11-07 04:50] LABS: Hemoglobin 7.7 g/dL (13.5-17.5)
[2020-11-07 04:53] LABS: Hematocrit 22.1 % (41.0-53.0); Mean Corpuscular Hemoglobin 35.1 pg (28.0-32.0); Mean Corpuscular Hgb Conc. 34.9 g/dL (32.0-36.0); Mean Corpuscular Volume 100.4 fL (80.0-100.0); Red Cell Distribution Width 18.2 % (11.8-14.3)
[2020-11-07 04:54] LABS: INR 1.32 (0.9-1.15)
[2020-11-07 05:08] LABS: Potassium 3.8 mmol/L (3.5-5.1)
[2020-11-07 05:11] LABS: Basophils % (manual) 0 (0.0-2.0); Blast Cells 0; Promyelocytes % 0; White Blood Cell 37.2 10^3/uL (4.4-10.8)
[2020-11-07 05:13] LABS: Albumin 1.6 g/dL (3.4-5.0); BUN/Creatinine Ratio 9.8; Calcium 6.7 mg/dL (8.5-10.1)
[2020-11-07 05:26] LABS: Bilirubin, Total 25.9 mg/dL (0.2-1.0); Total Protein 4.5 g/dL (6.4-8.2)
[2020-11-07] MEDS: PIPERACILLIN-TAZOB 3.375GM 100 ML IV SCH ×5 (05:38→23:19)
[2020-11-07] MEDS: OCTREOTIDE ACETATE 100 MCG/ML VL SUBCUT SCH ×3 (05:40→23:22)
[2020-11-07] MEDS: SUCRALFATE 1 GM/10 ML ORAL SUSP PO SCH ×4 (06:59→23:20)
[2020-11-07 07:00] LABS: Band Neutrophils % (manual) 23; Eosinophils % (manual) 2 (0-7); Lymphocytes % (manual) 11 (10.0-50.0); Metamyelocytes % 1; Monocytes % (manual) 9 (0-12); Myelocytes % 7; Reactive Lymphocytes 2
[2020-11-07] MEDS: VASOPRESSIN 50 UNITS in D5W 5% 247.5 ML IV SCH (07:00)
[2020-11-07] MEDS: DOPamine 1600MCG/ML D5W 250 ML IV SCH (07:58)
[2020-11-07] MEDS: predniSONE 20 MG TAB NG SCH (09:30)
[2020-11-07] MEDS: PANTOPRAZOLE 40 MG/10 ML VIAL INJ IV SCH ×2 (09:30→23:19)
[2020-11-07] MEDS ORDERED: TPN PER PHARMACY 0 ML IV SCH ×2 (10:00→10:45)
[2020-11-07] MEDS: fentaNYL Drip 2500mCg/250mlNS 250 ML IV SCH (10:15)
[2020-11-07 10:16] LABS: Hematocrit 21.8 % (41.0-53.0); Hemoglobin 7.7 g/dL (13.5-17.5); Mean Corpuscular Hemoglobin 35.2 pg (28.0-32.0); Mean Corpuscular Hgb Conc. 35.1 g/dL (32.0-36.0); Mean Corpuscular Volume 100.2 fL (80.0-100.0); Red Blood Cells 2.18 10^6/uL (4.5-5.90); Red Cell Distribution Width 18.3 % (11.8-14.3)
[2020-11-07 10:25] LABS: Phosphorus 2.1 mg/dL (2.5-4.90); Pre Albumin 3.4 mg/dL (20.0-40.0)
[2020-11-07 10:32] LABS: White Blood Cell 42.7 10^3/uL (4.4-10.8)
[2020-11-07 10:33] LABS: Basophils % (manual) 0 (0.0-2.0); Blast Cells 0; Eosinophils % (manual) 0 (0-7); Reactive Lymphocytes 0
[2020-11-07] MEDS ORDERED: phytonadione 10 MG in SODIUM CHL 0.9% 50 ML IV ONE (10:45)
[2020-11-07 11:09] LABS: Band Neutrophils % (manual) 6; Lymphocytes % (manual) 10 (10.0-50.0); Metamyelocytes % 4; Monocytes % (manual) 13 (0-12); Myelocytes % 6; Promyelocytes % 4
[2020-11-07] MEDS: FLUCONAZOLE 200MG/100ML 100 ML IV SCH ×2 (11:46→12:30)
[2020-11-07] MEDS ORDERED: POTASSIUM PHOSPHATE 22 MEQ in SODIUM CHL 0.9% 100 ML IV ONE (12:30)
[2020-11-07] MEDS: ALBUMIN 25% 100 ML IV SCH ×2 (14:03→20:30)
[2020-11-07] MEDS ORDERED: LIDOCAINE 1% (LOCAL ANESTH.) PF 5ml SDV ID ONE (14:15)
[2020-11-07] MEDS ORDERED: levoFLOXacin 750MG 150 ML IV ONE (15:00)
[2020-11-07] MEDS ORDERED: TPN PER PHARMACY IV NR ×9 (20:00)
[2020-11-07] MEDS: TPN PER PHARMACY IV NR ×9 (23:18)
[2020-11-07] MEDS: ACCU-CHEK COMFORT CURVE STRIP VI SCH (23:23)
[2020-11-08] VITALS (110 sets, daily range): BP systolic 73–139; BP diastolic 32–70
[2020-11-08] MEDS ORDERED: DEXTROSE (50%) 50ML SYRG IV SCH
[2020-11-08] MEDS: LACTULOSE 20Gm/30ML SOLN PO SCH ×6 (02:00→22:00)
[2020-11-08] MEDS: ALBUMIN 25% 100 ML IV SCH (04:30)
[2020-11-08] MEDS: PIPERACILLIN-TAZOB 3.375GM 100 ML IV SCH (06:00)
[2020-11-08] MEDS: OCTREOTIDE ACETATE 100 MCG/ML VL SUBCUT SCH ×3 (06:00→23:24)
[2020-11-08] MEDS: ACCU-CHEK COMFORT CURVE STRIP VI SCH ×4 (06:00→23:25)
[2020-11-08] MEDS: InsuLIN REG 1unit/0.01ml Soln (100units/ml) SC SCH ×4 (06:52→17:32)
[2020-11-08] MEDS: SUCRALFATE 1 GM/10 ML ORAL SUSP PO SCH ×4 (06:54→22:00)
[2020-11-08 07:10] LABS: Mean Corpuscular Hgb Conc. 34.7 g/dL (32.0-36.0)
[2020-11-08 07:12] LABS: Hematocrit 19.8 % (41.0-53.0); Mean Corpuscular Hemoglobin 34.6 pg (28.0-32.0); Mean Corpuscular Volume 99.9 fL (80.0-100.0); Red Blood Cells 1.98 10^6/uL (4.5-5.90)
[2020-11-08 07:18] LABS: Blast Cells 0; Hemoglobin 6.9 g/dL (13.5-17.5); Reactive Lymphocytes 0; White Blood Cell 36.4 10^3/uL (4.4-10.8)
[2020-11-08 07:22] LABS: INR 1.49 (0.9-1.15)
[2020-11-08 07:31] LABS: BUN/Creatinine Ratio 11.2; Calcium 6.7 mg/dL (8.5-10.1); Magnesium 2.8 mg/dL (1.6-2.6); Potassium 3.5 mmol/L (3.5-5.1)
[2020-11-08 07:43] LABS: Bilirubin, Total 24.8 mg/dL (0.2-1.0); Phosphorus 2.2 mg/dL (2.5-4.90); Total Protein 4.3 g/dL (6.4-8.2)
[2020-11-08 08:38] LABS: Band Neutrophils % (manual) 10; Basophils % (manual) 1 (0.0-2.0); Eosinophils % (manual) 2 (0-7); Lymphocytes % (manual) 4 (10.0-50.0); Metamyelocytes % 13; Monocytes % (manual) 13 (0-12); Myelocytes % 7; Promyelocytes % 1
[2020-11-08] MEDS ORDERED: CEFEPIME 2 GM in SODIUM CHL 0.9% 50 ML IV ONE (09:15)
[2020-11-08] MEDS ORDERED: phytonadione 10 MG in SODIUM CHL 0.9% 50 ML IV ONE (09:15)
[2020-11-08] MEDS: PANTOPRAZOLE 40 MG/10 ML VIAL INJ IV SCH ×2 (09:16→23:23)
[2020-11-08] MEDS: predniSONE 20 MG TAB NG SCH ×2 (09:16→10:05)
[2020-11-08] MEDS: fentaNYL Drip 2500mCg/250mlNS 250 ML IV SCH ×2 (10:15→16:54)
[2020-11-08] MEDS: MIDAZOLAM DRIP 50 mg/50mL 50 ML IV SCH ×2 (10:36→16:11)
[2020-11-08] MEDS ORDERED: POTASSIUM PHOSPHATE 44 MEQ in D5W 5% 250 ML IV ONE (11:00)
[2020-11-08] MEDS ORDERED: SODIUM PHOSPHATES 40 MEQ in D5W 5% 250 ML IV ONE (11:30)
[2020-11-08] MEDS: DOPamine 1600MCG/ML D5W 250 ML IV SCH ×2 (13:00→17:36)
[2020-11-08] MEDS ORDERED: levoFLOXacin 750MG 150 ML IV SCH (15:00)
[2020-11-08] MEDS: TPN PER PHARMACY IV NR ×9 (19:50)
[2020-11-08] MEDS ORDERED: TPN PER PHARMACY IV NR ×8 (20:00)
[2020-11-08] MEDS: LORazepam 2MG/ML-1ML VIAL IV PRN (22:27)
[2020-11-08] MEDS: CEFEPIME 2 GM in SODIUM CHL 0.9% 50 ML IV SCH (23:22)
[2020-11-09] VITALS (80 sets, daily range): BP systolic 90–138; BP diastolic 53–74
[2020-11-09 00:36] LABS: Hemoglobin 8.3 g/dL (13.5-17.5)
[2020-11-09 00:37] LABS: Hematocrit 23.1 % (41.0-53.0); Mean Corpuscular Hemoglobin 34.1 pg (28.0-32.0); Mean Corpuscular Hgb Conc. 35.9 g/dL (32.0-36.0); Mean Corpuscular Volume 95.1 fL (80.0-100.0); Red Blood Cells 2.43 10^6/uL (4.5-5.90); Red Cell Distribution Width 17.7 % (11.8-14.3)
[2020-11-09 01:06] LABS: Basophils % (manual) 0 (0.0-2.0); Blast Cells 0; Eosinophils % (manual) 0 (0-7); Metamyelocytes % 0; Reactive Lymphocytes 0; White Blood Cell 38.2 10^3/uL (4.4-10.8)
[2020-11-09 01:15] LABS: Band Neutrophils % (manual) 31; Lymphocytes % (manual) 3 (10.0-50.0); Monocytes % (manual) 7 (0-12); Myelocytes % 10; Promyelocytes % 2
[2020-11-09] MEDS: LACTULOSE 20Gm/30ML SOLN PO SCH ×5 (02:00→17:37)
[2020-11-09 04:59] LABS: Hemoglobin 8.5 g/dL (13.5-17.5)
[2020-11-09 05:00] LABS: Hematocrit 24.3 % (41.0-53.0); Mean Corpuscular Hemoglobin 33.6 pg (28.0-32.0); Red Blood Cells 2.53 10^6/uL (4.5-5.90); Red Cell Distribution Width 18.3 % (11.8-14.3)
[2020-11-09 05:11] LABS: White Blood Cell 40.7 10^3/uL (4.4-10.8)
[2020-11-09 05:12] LABS: Basophils % (manual) 0 (0.0-2.0); Blast Cells 0; Eosinophils % (manual) 0 (0-7); Promyelocytes % 0; Reactive Lymphocytes 0
[2020-11-09 05:14] LABS: INR 1.5 (0.9-1.15)
[2020-11-09 05:19] LABS: Albumin 1.8 g/dL (3.4-5.0); BUN/Creatinine Ratio 13.4; Calcium 6.8 mg/dL (8.5-10.1); Magnesium 2.6 mg/dL (1.6-2.6); Potassium 3.6 mmol/L (3.5-5.1)
[2020-11-09 05:30] LABS: Bilirubin, Total 25.6 mg/dL (0.2-1.0); Phosphorus 2.7 mg/dL (2.5-4.90); Total Protein 4.2 g/dL (6.4-8.2)
[2020-11-09] MEDS: ACCU-CHEK COMFORT CURVE STRIP VI SCH ×3 (06:00→17:58)
[2020-11-09] MEDS: OCTREOTIDE ACETATE 100 MCG/ML VL SUBCUT SCH ×2 (06:29→15:28)
[2020-11-09] MEDS: SUCRALFATE 1 GM/10 ML ORAL SUSP PO SCH ×3 (06:29→17:00)
[2020-11-09] MEDS: InsuLIN REG 1unit/0.01ml Soln (100units/ml) SC SCH ×4 (06:31→17:59)
[2020-11-09 06:46] LABS: Band Neutrophils % (manual) 40; Lymphocytes % (manual) 4 (10.0-50.0); Metamyelocytes % 4; Monocytes % (manual) 7 (0-12); Myelocytes % 15
[2020-11-09] MEDS ORDERED: phytonadione 10 MG in SODIUM CHL 0.9% 50 ML IV ONE (08:45)
[2020-11-09] MEDS: CEFEPIME 2 GM in SODIUM CHL 0.9% 50 ML IV SCH (09:00)
[2020-11-09] MEDS ORDERED: NALOXONE HCL 0.4 MG/ML VIAL ONE (09:09)
[2020-11-09] MEDS ORDERED: FLUMAZENIL 0.1 MG/ML INJ 10ML MDV IV ONE (09:09)
[2020-11-09] MEDS ORDERED: SODIUM CHLORIDE LOCK 0 ML ONE (09:10)
[2020-11-09] MEDS ORDERED: MIDAZOLAM HCL 5 MG/ML-1ML VIAL ONE (09:10)
[2020-11-09] MEDS ORDERED: diphenhdrAMINE HCL 50 MG/1 ML VL ONE (09:10)
[2020-11-09] MEDS ORDERED: fentaNYL CITRATE 100 MCG/2 ML VL ONE (09:11)
[2020-11-09] MEDS ORDERED: PHYTONADIONE (VIT K)10 MG/ML 1ML VIAL IV ONE (09:45)
[2020-11-09] MEDS: PANTOPRAZOLE 40 MG/10 ML VIAL INJ IV SCH (09:49)
[2020-11-09] MEDS: predniSONE 20 MG TAB NG SCH (09:50)
[2020-11-09] MEDS ORDERED: LINEZOLID 600MG/300ML 300 ML IV SCH (10:00)
[2020-11-09] MEDS ORDERED: ALBUMIN 25% 100 ML IV SCH (11:00)
[2020-11-09] MEDS: MIDAZOLAM DRIP 50 mg/50mL 50 ML IV SCH (11:40)
[2020-11-09] MEDS: fentaNYL Drip 2500mCg/250mlNS 250 ML IV SCH (11:40)
[2020-11-09] MEDS: NOREPINEPHRINE 8 MG/250ML KIT 250 ML IV SCH (11:45)
[2020-11-09] MEDS ORDERED: levoFLOXacin 750MG 150 ML IV SCH (14:00)
[2020-11-09] MEDS ORDERED: TPN PER PHARMACY IV NR ×11 (20:00)
== END 2020-11-09 21:10 | disposition short-term general hospital (02) | DRG 870 ==
LOC: ER 09:52 → TELE 17:06 → TELE-WESTW 23:57 → ICU WEST 11-03 00:03
PROVIDERS: ADMIT Nurse Practitioner Acute Care; ATTEND Internal Medicine
PROC: 0DJ08ZZ Inspection of Upper Intestinal Tract, Via Natural or Artificial Opening Endoscopic (ICD-10-PCS; 2020-11-01)
PROC: 30233M1 Transfusion of Nonautologous Plasma Cryoprecipitate into Peripheral Vein, Percutaneous Approach (ICD-10-PCS; 2020-11-01)
PROC: 5A1955Z Respiratory Ventilation, Greater than 96 Consecutive Hours (ICD-10-PCS; 2020-11-03)
PROC: B54BZZA Ultrasonography of Right Lower Extremity Veins, Guidance (ICD-10-PCS; 2020-11-03)
PROC: 0BH17EZ Insertion of Endotracheal Airway into Trachea, Via Natural or Artificial Opening (ICD-10-PCS; 2020-11-03)
PROC: 30233N1 Transfusion of Nonautologous Red Blood Cells into Peripheral Vein, Percutaneous Approach (ICD-10-PCS; 2020-11-03)
PROC: 0DJ08ZZ Inspection of Upper Intestinal Tract, Via Natural or Artificial Opening Endoscopic (ICD-10-PCS; 2020-11-03)
PROC: 02HV33Z Insertion of Infusion Device into Superior Vena Cava, Percutaneous Approach (ICD-10-PCS; principal; 2020-11-03 14:30)
PROC: 0DJ08ZZ Inspection of Upper Intestinal Tract, Via Natural or Artificial Opening Endoscopic (ICD-10-PCS; 2020-11-09)
DX: A41.01 Sepsis due to Methicillin susceptible Staphylococcus aureus (principal); G93.41 Metabolic encephalopathy; J69.0 Pneumonitis due to inhalation of food and vomit; E43 Unspecified severe protein-calorie malnutrition; J96.01 Acute respiratory failure with hypoxia; K72.00 Acute and subacute hepatic failure without coma; N17.0 Acute kidney failure with tubular necrosis; R65.21 Severe sepsis with septic shock; K29.71 Gastritis, unspecified, with bleeding; F10.139 Alcohol abuse with withdrawal, unspecified; J95.851 Ventilator associated pneumonia; K86.1 Other chronic pancreatitis; Z20.822 Contact with and (suspected) exposure to COVID-19; Z68.24 Body mass index [BMI] 24.0-24.9, adult; E87.6 Hypokalemia; F12.90 Cannabis use, unspecified, uncomplicated; F17.200 Nicotine dependence, unspecified, uncomplicated; F41.9 Anxiety disorder, unspecified; K22.2 Esophageal obstruction; K44.9 Diaphragmatic hernia without obstruction or gangrene; K74.60 Unspecified cirrhosis of liver; F10.129 Alcohol abuse with intoxication, unspecified; R74.01 Elevation of levels of liver transaminase levels; R56.9 Unspecified convulsions; Z80.3 Family history of malignant neoplasm of breast; K70.10 Alcoholic hepatitis without ascites; Z82.49 Family history of ischemic heart disease and other diseases of the circulatory system; Z85.46 Personal history of malignant neoplasm of prostate
CPT/HCPCS: 36415; 36569; 36600; 70450; 71045; 71250; 74176; 74177; 80053; 80076; 80202; 81001; 82040; 82140; 82150; 82270; 82533; 82805; 82962; 83605; 83690; 83735; 83880; 84100; 84132; 84478; 84484; 85007; 85014; 85018; 85025; 85027; 85610; 85730; 86704; 86706; 86708; 86803; 86850; 86900; 86901; 86920; 87040; 87070; 87077; 87081; 87086; 87186; 87205; 87340; 87426; 87493; 94002; 94003; 94640; 95819; 96361; 96365; C9113; G0378; J0131; J1450; J1815; J1956; J2250; J2543; J3430; J3480; J7060; J7131; P9047

== ENCOUNTER 2022-03-30 18:58 | Emergency (ER) | payer SELFPAY ==
[~2022-03-30] VITALS: Ht 195.6 cm; Wt 90.0 kg
[2022-03-30] MEDS ORDERED: ONDANSETRON HCL 4 MG/2 ML VIAL IV ONE (19:45)
[2022-03-30] MEDS ORDERED: PANTOPRAZOLE 40 MG/10 ML VIAL INJ IV ONE (19:45)
[2022-03-30] MEDS ORDERED: MORPHINE SULFATE 4 MG/ML SYR/VIAL IV ONE (19:45)
[2022-03-30 20:05] LABS: Hematocrit 37.3 % (41.0-53.0); Hemoglobin 12.8 g/dL (13.5-17.5); Mean Corpuscular Hemoglobin 31.8 pg (28.0-32.0); Mean Corpuscular Hgb Conc. 34.3 g/dL (32.0-36.0); Mean Corpuscular Volume 92.9 fL (80.0-100.0); Red Blood Cells 4.01 10^6/uL (4.5-5.90); Red Cell Distribution Width 13.1 % (11.8-14.3); White Blood Cell 5.6 10^3/uL (4.4-10.8)
[2022-03-30 20:09] LABS: Basophils % (manual) 0 (0.0-2.0); Blast Cells 0; Metamyelocytes % 0; Myelocytes % 0; Promyelocytes % 0; Reactive Lymphocytes 0
[2022-03-30 20:20] LABS: INR 0.99 (0.9-1.15); Partial Thromboplastin Time 31.9 sec (24.6-33.4)
[2022-03-30 20:25] LABS: Albumin 3.9 g/dL (3.4-5.0); Calcium 8.4 mg/dL (8.5-10.1); Potassium 3.9 mmol/L (3.5-5.1)
[2022-03-30 20:28] LABS: BUN/Creatinine Ratio 7.5; Bilirubin, Total 0.4 mg/dL (0.2-1.0); Total Protein 7.9 g/dL (6.4-8.2)
[2022-03-30 20:30] LABS: Band Neutrophils % (manual) 7; Eosinophils % (manual) 2 (0-7); Lymphocytes % (manual) 18 (10.0-50.0); Monocytes % (manual) 20 (0-12)
[2022-03-30] MEDS ORDERED: SODIUM CHLORIDE 0.9% 1,000 ML IV ONE ×2 (21:15→23:00)
[2022-03-30 21:25] VITALS: BP 115/78
[2022-03-30] MEDS ORDERED: LORazepam 2MG/ML-1ML VIAL IV ONE (21:45)
[2022-03-30] MEDS ORDERED: chlordiazePOXIDE HCL 25 MG CAP PO ONE (21:45)
[2022-03-30] MEDS ORDERED: LORazepam 2MG/ML-1ML VIAL IV SCH ×2 (23:00)
[2022-03-30] MEDS ORDERED: ALUM & MAG HYDROX-SIMETH LIQ(MAALOX) 30 ML PO PRN (23:00)
[2022-03-30] MEDS ORDERED: MORPHINE SULFATE INJ 2 MG/ml SYRG IV PRN (23:00)
[2022-03-30] MEDS ORDERED: ACETAMINOPHEN 325 MG TAB PO PRN (23:00)
[2022-03-30] MEDS ORDERED: ONDANSETRON HCL 4 MG/2 ML VIAL IV PRN (23:00)
[2022-03-30] MEDS ORDERED: LORazepam 2MG/ML-1ML VIAL IV PRN (23:00)
[2022-03-30] MEDS ORDERED: DOCUSATE SOD 100 MG CAP PO PRN (23:00)
[2022-03-30] MEDS ORDERED: TEMAZEPAM 15 MG CAP PO PRN (23:00)
[2022-03-30] MEDS ORDERED: HYDROcodone-ACET 5/325MG TAB PO PRN (23:00)
[2022-03-31] MEDS ORDERED: FOLIC ACID 1 MG TAB PO SCH (10:00)
[2022-03-31] MEDS ORDERED: MULTIPLE VITAMIN TAB PO SCH (10:00)
[2022-03-31] MEDS ORDERED: PANTOPRAZOLE 40 MG/10 ML VIAL INJ IV SCH (10:00)
[2022-03-31] MEDS ORDERED: THIAMINE 100mg/ml INJ (200mg/2ml VIAL) IV SCH (10:00)
== END 2022-03-30 23:05 | disposition left against medical advice (07) ==
LOC: EDSEX 18:58 → ER 18:58 → EDBD 18:58 → ER 23:05
DX: R10.32 Left lower quadrant pain (principal); R10.31 Right lower quadrant pain; F10.239 Alcohol dependence with withdrawal, unspecified; F10.229 Alcohol dependence with intoxication, unspecified; N18.9 Chronic kidney disease, unspecified; Y90.8 Blood alcohol level of 240 mg/100 ml or more
CPT/HCPCS: 36415; 74176; 80053; 80320; 83605; 83690; 84484; 85007; 85027; 85610; 85730; 87040; 93005; 96361; 96374; 96375; 99285; C9113; J2405

== ENCOUNTER 2024-06-30 21:01 | Inpatient (IN) | payer MEDICAID ==
[~2024-06-30] VITALS: Ht 188 cm; Wt 92.1 kg
--- NOTE | 2024-06-30 21:40 | ED.PDOC ---
Altered Mental Status HPI Comments 53-year-old male came to ER via EMS for altered level of consciousness. Per EMS patient was picked up with a home, noted by family members that patient has been generally weak and lethargic for the past few days. Patient does have a history of liver and kidney failure. History of alcoholism. Noted to be jaundiced with abdominal distention. Denies any nausea, vomiting, diarrhea or any active bleeding. Blood sugar on scene was 93, with a systolic blood pressure of 89 Chief Complaint: ALOC Time Seen by MD: 21:39 Reviewed Notes: Seo Specialist Notes Allergies: Coded Allergies: NO KNOWN ALLERGIES (Unverified , 03/26/19) Home Meds No Active Prescriptions or Reported Meds Information Source: Patient, Emergency Med Personnel Mode of Arrival: EMS Severity: Severe, Unable to Care for Self Timing: Days Duration: Since onset Prehospital treatment: Accucheck Quality: Decreased Alertness, Change in Behavior, Confusion History of: Diabetes Past Medical History PAST MEDICAL HISTORY: Anxiety, Cancer, CKF, Liver Past Medical History (Other): Hepatorenal syndrome Surgical History: Denies all surgeries Family History Family History: Unknown Social History Smoker: Non-Smoker Alcohol: Heavy Drugs: Denies Drug Use Lives In: Home Unable to Obtain due to: Altered Mental Status Physical Exam General Appearance: No Apparent Distress, Normal HEENT: Normal ENT Inspection, Pharynx Normal, TMs Normal Neck: Full Range of Motion, Non-Tender, Normal, Normal Inspection Respiratory: Chest Non-Tender, Lungs Clear, No Accessory Muscle Use, No Respiratory Distress, Normal Breath Sounds Cardiovascular: No Edema, No JVD, No Murmur, No Gallop, Normal Peripheral Pulses, Regular Rate/Rhythm Breast Exam: Deferred Gastrointestinal: No Organomegaly, Non Tender, No Pulsatile Mass, Normal Bowel Sounds, Soft Genitalia: Deferred Pelvic: Deferred Rectal: Deferred Extremities: No calf tenderness, Normal capillary refill, Normal inspection, Normal range of motion, Non-tender, No pedal edema Musculoskeletal : Apperance: Normal Neurologic: Alert, 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 Was a procedure done?: No Differential Diagnosis (ALOC) Differential Diagnosis: Dehydration, Encephalopathy, Sepsis, Heart Failure, Renal Failure, Other (Liver failure) X-Ray, Labs, Meds, VS Vital Signs Date Time Temp Pulse Resp B/P (MAP) Pulse Ox O2 Delivery O2 Flow Rate FiO2 06/30/24 23:15 92 9 109/44 (65) 100 06/30/24 23:00 91 14 105/43 (63) 100 06/30/24 22:45 88 112/40 (64) 06/30/24 22:22 91 15 95/31 (52) 98 06/30/24 22:00 93 11 84/32 (49) 97 06/30/24 21:53 93 15 100/42 (61) 98 06/30/24 21:48 93 12 79 Room Air* 0 21 06/30/24: 97.9 93 12 97/39 (58) 79 97.9 06/30/24 21:22 93 06/30/24 21:11 97.9 96 14 116/70 (85) 94 97.9 Lab Test 06/30/24 21:53 06/30/24 21:45 06/30/24 21:44 Range/Units POC Glucose 88 70-106 mg/dl White Blood Count 15.2 H 4.4-10.8 10^3/uL Red Blood Count 1.90 L 4.5-5.90 10^6/uL Hemoglobin 6.1 *L 13.5-17.5 g/dL Hematocrit 17.8 L 41.0-53.0 % Mean Corpuscular Volume 93.3 80.0-100.0 fL Mean Corpuscular Hemoglobin 31.9 28.0-32.0 pg Mean Corpuscular Hemoglobin Concent 34.2 32.0-36.0 g/dL Red Cell Distribution Width 17.3 H 11.8-14.3 % Platelet Count 160 140-450 10^3/uL Mean Platelet Volume 8.1 6.9-10.8 fL Neutrophils (%) (Auto) 65.7 37.0-80.0 % Lymphocytes (%) (Auto) 15.0 10.0-50.0 % Monocytes (%) (Auto) 18.4 H 0.0-12.0 % Eosinophils (%) (Auto) 0.3 0.0-7.0 % Basophils (%) (Auto) 0.6 0.0-2.0 % Neutrophils # (Auto) 10.0 H 1.6-8.6 10 ^3/uL Lymphocytes # (Auto) 2.3 0.4-5.4 10 ^3/uL Monocytes # (Auto) 2.8 H 0-1.3 10 ^3/uL Eosinophils # (Auto) 0.1 0-0.8 10 ^3/uL Basophils # (Auto) 0.1 0-0.2 10 ^3/uL Nucleated Red Blood Cells 0.1 % Prothrombin Time 18.5 H 9.3-11.8 sec Prothrombin Time INR 1.86 H 0.9-1.15 Activated Partial Thromboplast Time 46.9 H 24.5-34.5 SEC Ammonia 54 H 11-32 umol/L Sodium Level 135 L 136-145 mmol/L Potassium Level 4.9 3.5-5.1 mmol/L Chloride Level 84 L 98-107 mmol/L Carbon Dioxide Level 39 H 20-31 mmol/L Anion Gap 12 5-15 Blood Urea Nitrogen 41 H 9-23 mg/dL Creatinine 4.94 H 0.700-1.30 mg/dL Glomerular Filtration Rate Calc 13 >90 mL/min BUN/Creatinine Ratio 8.3 L 10.0-20.0 Serum Glucose 90 74-106 mg/dL Calcium Level 8.4 L 8.7-10.4 mg/dL Magnesium Level 2.4 1.6-2.6 mg/dL Total Bilirubin 7.5 H 0.2-1.0 mg/dL Aspartate Amino Transferase (AST) 38 13-40 U/L Alanine Aminotransferase (ALT) 15 7-40 U/L Alkaline Phosphatase 121 H 46-116 U/L Total Protein 5.9 5.7-8.2 g/dL Albumin 2.7 L 3.2-4.8 g/dL Plasma/Serum Blood Alcohol 3.6 <10 mg/dL Current Medications Medications (Trade) Dose Ordered Sig/Erik Route Start Time Stop Time Status Last Admin Sodium Chloride 1,000 ml @ 1,000 mls/hr Q1H ONCE IV 06/30/24 22:15 06/30/24 23:14 DC 06/30/24 22:16 Piperacillin Sod/ Tazobactam Sod 100 ml @ 100 mls/hr ONCE ONCE IV 06/30/24 22:15 06/30/24 23:14 DC 06/30/24 22:17 Time of 1ST Reevaluation: 21:34 Reevaluation 1ST: Unchanged Time of 2ND Reevaluation: 01:03 Reevaluation 2ND: Unchanged Patient Education/Counseling: Diagnosis, Treatment Family Education/Counseling: No Family Present Sepsis focused exam: focus exam completed (In the initial resuscitation at least 30 mL/kg of IV crystalloid fluid was NOT given within the first 3 hr due to concerns of fluid overload), time: (2199) Sepsis Sepsis Reasesment Focused Exam Sepsis focused exam: focus exam completed, time: (2199) Departure 1 Departure Time of Disposition: :01 Impression: Primary Impression: Altered mental status Additional Impressions: Hepatic encephalopathy Hepatorenal failure Anemia, chronic disease Disposition: ADMITTED INPATIENT Condition: Guarded e-Prescriptions No Active Prescriptions or Reported Meds Discharged With: Self Comments Hepatorenal Failure with Encephalopathy and Severe Anemia Chief Complaint: Generalized weakness and confusion History of Present Illness: 53-year-old male with known history of alcoholic liver cirrhosis presents to the ED with generalized weakness and confusion for the past 2-3 days. Patient lives alone and was found by friends who called EMS for assistance. Patient has evidence of decompensated liver disease with laboratory findings suggestive of hepatorenal syndrome, hepatic encephalopathy, and severe anemia. Initial presentation was notable for hypotension which has since improved with interventions. Review of Systems: Constitutional: Generalized weakness, confusion Other systems: Limited due to patient's mental status Past Medical History: Alcoholic liver cirrhosis Social History: Lives alone History of alcohol use - current use evidenced by elevated blood alcohol level Vital Signs: Most recent BP: 109/44 mmHg Initial presentation: Hypotensive, specific values not documented Physical Exam: Limited physical exam documentation available Lab Results: CBC: - Hemoglobin/Hematocrit: 6/18 - WBC: 15, 000 - Platelets: 160, 000 Coagulation: - INR: 1.86 Chemistry: - BUN: 41 - Creatinine: 4.94 - Total Bilirubin: 7.5 Other: - Ammonia: 54 - Blood Alcohol: 3.6 Imaging and Other Relevant Results: CT Abdomen: - Cirrhosis with ascites - Questionable mild pleural effusions CT Head: - No acute pathology Chest X-ray: - Left lower lobe infiltrate vs. effusion vs. atelectasis Medical Decision Making: Summary Statement: 53-year-old male with history of alcoholic cirrhosis presenting with acute decompensation, manifesting as hepatorenal syndrome, hepatic encephalopathy, and severe anemia requiring immediate intervention. Problem List: 1. Hepatorenal failure 2. Hepatic encephalopathy 3. Severe anemia 4. Decompensated cirrhosis 5. Possible pneumonia/pleural effusion 6. Initial hypotension Differential Diagnosis: 1. Hepatorenal syndrome vs. Acute tubular necrosis 2. Hepatic encephalopathy vs. Other metabolic encephalopathy 3. Anemia of chronic disease vs. Acute blood loss 4. Healthcare-associated pneumonia vs. Pleural effusion ED Course: Patient received blood transfusion and careful IV fluid administration for hypotension. Blood pressure improved with interventions. Given complex presentation with multi-organ dysfunction, admission was deemed necessary. Assessment and Plan: 1. Hepatorenal Failure: - Admit to ICU for close monitoring - Nephrology consultation - Careful fluid management 2. Hepatic Encephalopathy: - Monitor mental status - Initiate lactulose therapy - Monitor ammonia levels 3. Severe Anemia (H/H 09/16): - Continue blood product transfusion as needed - Monitor H/H 4. Decompensated Cirrhosis: - GI consultation - Monitor liver function tests 5. Disposition: - Admit to ICU - Multiple consulting services to be involved in care Billing Information: ICD-10: K76.7 - Hepatorenal syndrome ICD-10: K72.91 - Hepatic failure, unspecified with coma ICD-10: D63.1 - Anemia in chronic liver disease ICD-10: K70.30 - Alcoholic cirrhosis of liver without ascites Critical Care Note Critical Care Time?: Yes (35 min-critical care time only) Critical care comment: Total critical care time: Approximately 36 minutes Due to a high probability of clinically significant, life threatening deterioration, the patient required my highest level of preparedness to intervene emergently and I personally spent this critical care time directly and personally managing the patient. This critical care time included obtaining a history; examining the patient; pulse oximetry; ordering and review of studies; arranging urgent treatment with development of a management plan; evaluation of patient's response to treatment; frequent reassessment; and, discussions with other providers. This critical care time was performed to assess and manage the high probability of imminent, life-threatening deterioration that could result in multi-organ failure. It was exclusive of separately billable procedures and treating other patients. Stability Stability form required: No Heart Score Heart Score: Heart Score Response (Comments) Value History N/A 0 EKG N/A 0 Age N/A 0 Risk Factors N/A 0 Troponin N/A 0 Total 0 I personally scribed for CE ARIAS MD ([email or web address]) on 06/30/24 at 21:40. Electronically submitted by Raimundo Alfred ([facility]). CE ARIAS MD Jun 30, 2024 21:40
[2024-06-30 21:48] VITALS: PULSE 93; RESP 12; O2SAT 79
[2024-06-30 22:00] LABS: Basophils # (auto) 0.1 10 ^3/uL (0-0.2); Basophils % (auto) 0.6 % (0.0-2.0); Eosinophils # (auto) 0.1 10 ^3/uL (0-0.8); Eosinophils % (auto) 0.3 % (0.0-7.0); Hematocrit 17.8 % (41.0-53.0); Lymphocytes # (auto) 2.3 10 ^3/uL (0.4-5.4); Mean Corpuscular Hemoglobin 31.9 pg (28.0-32.0); Mean Corpuscular Hgb Conc. 34.2 g/dL (32.0-36.0); Mean Corpuscular Volume 93.3 fL (80.0-100.0); Monocytes # (auto) 2.8 10 ^3/uL (0-1.3); Monocytes % (auto) 18.4 % (0.0-12.0); Neutrophils % (auto) 65.7 % (37.0-80.0); Nucleated Red Blood Cells % 0.1 %; Platelet Count (auto) 160 10^3/uL (140-450); Red Cell Distribution Width 17.3 % (11.8-14.3); White Blood Cell 15.2 10^3/uL (4.4-10.8)
[2024-06-30 22:15] LABS: Hemoglobin 6.1 g/dL (13.5-17.5)
[2024-06-30] MEDS: SODIUM CHLORIDE 0.9% 1,000 ML IV ONE (22:16)
[2024-06-30 22:17] LABS: INR 1.86 (0.9-1.15); Partial Thromboplastin Time 46.9 SEC (24.5-34.5); Prothrombin Time 18.5 sec (9.3-11.8)
[2024-06-30] MEDS: PIPERACILLIN-TAZOB 3.375GM 100 ML IV ONE (22:17)
[2024-06-30 22:24] LABS: Alanine Aminotransferase 15 U/L (7-40); Anion Gap 12 (5-15); Aspartate Aminotransferase 38 U/L (13-40); BUN/Creatinine Ratio 8.3 (10.0-20.0); Blood Alcohol 3.6 mg/dL (<10); Glucose 90 mg/dL (74-106); Magnesium 2.4 mg/dL (1.6-2.6); Potassium 4.9 mmol/L (3.5-5.1); Total Protein 5.9 g/dL (5.7-8.2)
[2024-06-30 22:29] LABS: Albumin 2.7 g/dL (3.2-4.8); Alkaline Phosphatase 121 U/L (46-116); Bilirubin, Total 7.5 mg/dL (0.2-1.0); Blood Urea Nitrogen 41 mg/dL (9-23); Calcium 8.4 mg/dL (8.7-10.4); Carbon Dioxide 39 mmol/L (20-31); Chloride 84 mmol/L (98-107); Sodium 135 mmol/L (136-145)
--- NOTE | 2024-06-30 23:00 | DVH ---
CHEST RADIOGRAPH Indication: weakness, SOB Technique: Single frontal view of the chest was obtained Comparison: CHEST PORTABLE on DOS: 11/08/20, CHEST PORTABLE on DOS: 11/07/20, CHEST PORTABLE on DOS: 11/07 Findings/ IMPRESSION: Low lung volumes with bronchovascular crowding. Difficult to exclude infectious process in the left l ower lung zone.
--- NOTE | 2024-06-30 23:09 | DVH ---
EXAM: CT HEAD WITHOUT CONTRAST INDICATION: ALOC TECHNIQUE: CT of the head without intravenous contrast. Radiation Dose : 1. Head: CT Dose: CTDI volume is 54.16 mGy. Dose-length product is 868.23 mGy*cm The dose indicators for CT are the volume Computed Tomography (CT) Dose Index (CTDIvol) and the Dose Length Product (DLP), and are measured in units of mGy and mGy-cm, respectively. These indicators are not patient dose, but values generated from the CT scanner acquisition factors. The report includes radiation exposure data for exposures received during this examination. COMPARISON: None FINDINGS: There is no evidence of acute intracranial hemorrhage, extra-axial collection, mass effect, midline s hift, herniation or hydrocephalus. The ventricles, sulci and cisterns are age appropriate. The croft-white differentiation is intact. Patchy periventricular and subcortical white matter hypoattenuation is nonspecific but may be related to small vessel ischemic disease. The visualized paranasal sinuses and mastoid air cells are clear. The surrounding soft tissues and osseous structures are unremarkable. IMPRESSION: No acute intracranial abnormality.
--- NOTE | 2024-06-30 23:30 | DVH ---
CT SCAN ABDOMEN AND PELVIS WITHOUT CONTRAST CLINICAL HISTORY: DISTENSION TECHNIQUE: Helical axial images are obtained from the lung bases through the pelvis without oral cont rast. No intravenous contrast was administered. Coronal and sagittal reformatted images were generate d from thin section reconstructions. One or more of the following radiation dose reduction techniques were used for this examination: automated exposure control, adjustment of the mA and/or kV according to patient size, use of iterative reconstruction technique. COMPARISON: CT ABD PELVIS WO CONTRAST on DOS: 03/30/22 FINDINGS: LOWER THORAX: Small bilateral pleural effusions with atelectasis/ scarring in the imaged lung bases. Visualized hea rt is mildly enlarged. ABDOMEN AND PELVIS: Evaluation of visceral and vascular structures is limited due to lack of contrast administration. Str eak artifact also limits evaluation. Large volume abdominopelvic ascites. Cirrhotic appearance of the liver. No discrete hepatic lesions a s visualized. Unenhanced spleen and adrenals appear grossly unremarkable. Changes of chronic calcified pancreatitis again noted. No sizable, radiopaque cholelithiasis or biliary ductal dilatation appreciated. No hydroureteronephrosis or sizable, obstructing urinary tract calculi identified. No evidence of abdominal aortic aneurysm. No evidence of small-bowel obstruction. Thickening of the colon most notably involving the ascending and descending portions. Pericolonic fat stranding also noted. The appendix is not clearly delineated . No free intraperitoneal air identified. No sizable bladder calculus. Bilateral inguinal hernia defects containing fluid. No destructive osseous lesions identified. IMPRESSION: Small bilateral pleural effusions partially imaged. Cirrhosis with large volume abdominopelvic ascites. Colonic thickening with pericolonic fat stranding. Correlate for colitis. Portal colopathy may also appear similarly. A few other findings as above.
[2024-07-01] VITALS (15 sets, daily range): BP systolic 98–110; BP diastolic 32–92; PULSE 88–93; RESP 11–18; TEMP 96.4–97.9; O2SAT 97–100
[2024-07-01] MEDS: LACTULOSE 20Gm/30ML SOLN PO ONE (02:45)
[2024-07-01] MEDS ORDERED: ONDANSETRON HCL 4 MG/2 ML VIAL IV PRN (02:45)
[2024-07-01] MEDS ORDERED: VANCOMYCIN PER PHARMACY 0 MG IV SCH (02:45)
--- NOTE | 2024-07-01 03:05 | DVHHPRES ---
History of Present Illness Resident Creating Document: SULY BUENROSTRO RESDIENT History of Present Illness This is a 53-year-old male with past medical history of liver cirrhosis (due to alcohol use disorder), CKD brought to the hospital due to altered mental status. Due to altered mental status history could not obtain from the patient, tried to contact family member but could not reached. Per EMS reports patient was taken from home and per family member he has been altered since 1 week which has progressively worsened. He was admitted on 10/31/2020 and DVT H due to GI bleeding, EGD was performed, showed gastritis with no active bleeding. PMHx: Liver cirrhosis due to alcohol use disorder, CKD Social history: Has history of alcohol use disorder Review of Systems Review of Systems Due to altered mental status, review of systems could not obtain. Allergies: Coded Allergies: NO KNOWN ALLERGIES (Unverified , 03/26/19) Exam Vital Signs Vital Signs Date Time Temp Pulse Resp B/P (MAP) Pulse Ox O2 Delivery O2 Flow Rate FiO2 06/30/24 23:15 92 9 109/44 (65) 100 06/30/24 21:48 Room Air* 0 21 06/30/24 21:25 97.9 97.9 Exam General Appearance: Lethargic, oriented to person, disoriented to time and place. HEENT: Atraumatic, PERRLA, EOMI, Mucous membrane moist/pink Respiratory: Clear to auscultation, Normal air movement Cardiovascular: Regular rate, Normal S1, Normal S2, No murmurs, no chest wall tenderness Abdominal: Distended abdomen with positive thrill Extremities: No clubbing, No cyanosis, No edema, Normal pulses, No tenderness/swelling Skin: Generalized yellow discoloration of skin, petechial/purpuric lesion and upper limb Labs/Xrays Labs Test 06/30/24 21:53 06/30/24 21:45 06/30/24 21:44 Range/Units POC Glucose 88 70-106 mg/dl White Blood Count 15.2 H 4.4-10.8 10^3/uL Red Blood Count 1.90 L 4.5-5.90 10^6/uL Hemoglobin 6.1 *L 13.5-17.5 g/dL Hematocrit 17.8 L 41.0-53.0 % Mean Corpuscular Volume 93.3 80.0-100.0 fL Mean Corpuscular Hemoglobin 31.9 28.0-32.0 pg Mean Corpuscular Hemoglobin Concent 34.2 32.0-36.0 g/dL Red Cell Distribution Width 17.3 H 11.8-14.3 % Platelet Count 160 140-450 10^3/uL Mean Platelet Volume 8.1 6.9-10.8 fL Neutrophils (%) (Auto) 65.7 37.0-80.0 % Lymphocytes (%) (Auto) 15.0 10.0-50.0 % Monocytes (%) (Auto) 18.4 H 0.0-12.0 % Eosinophils (%) (Auto) 0.3 0.0-7.0 % Basophils (%) (Auto) 0.6 0.0-2.0 % Neutrophils # (Auto) 10.0 H 1.6-8.6 10 ^3/uL Lymphocytes # (Auto) 2.3 0.4-5.4 10 ^3/uL Monocytes # (Auto) 2.8 H 0-1.3 10 ^3/uL Eosinophils # (Auto) 0.1 0-0.8 10 ^3/uL Basophils # (Auto) 0.1 0-0.2 10 ^3/uL Nucleated Red Blood Cells 0.1 % Prothrombin Time 18.5 H 9.3-11.8 sec Prothrombin Time INR 1.86 H 0.9-1.15 Activated Partial Thromboplast Time 46.9 H 24.5-34.5 SEC Ammonia 54 H 11-32 umol/L Sodium Level 135 L 136-145 mmol/L Potassium Level 4.9 3.5-5.1 mmol/L Chloride Level 84 L 98-107 mmol/L Carbon Dioxide Level 39 H 20-31 mmol/L Anion Gap 12 5-15 Blood Urea Nitrogen 41 H 9-23 mg/dL Creatinine 4.94 H 0.700-1.30 mg/dL Glomerular Filtration Rate Calc 13 >90 mL/min BUN/Creatinine Ratio 8.3 L 10.0-20.0 Serum Glucose 90 74-106 mg/dL Calcium Level 8.4 L 8.7-10.4 mg/dL Magnesium Level 2.4 1.6-2.6 mg/dL Total Bilirubin 7.5 H 0.2-1.0 mg/dL Aspartate Amino Transferase (AST) 38 13-40 U/L Alanine Aminotransferase (ALT) 15 7-40 U/L Alkaline Phosphatase 121 H 46-116 U/L Total Protein 5.9 5.7-8.2 g/dL Albumin 2.7 L 3.2-4.8 g/dL Plasma/Serum Blood Alcohol 3.6 <10 mg/dL Assessment/Plan Assessment/Plan Acute metabolic encephalopathy, likely due to liver failure Hepatic failure/Liver cirrhosis, due to alcohol use disorder Massive ascites, likely due to liver cirrhosis Acute hypoxic respiratory failure, likely due to massive ascites Alcohol use disorder Severe anemia, likely due to GI bleeding Possible GI bleeding, unspecified location Possible colitis Pleural effusion, likely due to massive ascites Possible spontaneous bacterial peritonitis Sepsis, likely due to above Acquired coagulopathy, likely due to liver failure CT scan shows small bilateral pleural effusion, liver cirrhosis with large abdominopelvic ascites, colonic thickening with pericolonic fat stranding,? colitis Consulted GI Consulted Radiology, for paracentesis Blood, urine culture Empiric antibiotic Zosyn and vancomycin Oxygen through nasal cannula IV albumin Trend ammonia Severe malnutrition Albumin is 2.7 CLIFFORD on CKD, likely VMN Possible hepatorenal syndrome Consulted nephrology Urine study DIET: NPO except medicines DVT PROPHYLAXIS: No anticoagulant indicated, due to possible bleeding/severe anemia GI PROPHYLAXIS:: Protonix BOWEL REGIMEN: Lactulose DISPOSITION: Telemetry Patient's status and plan discussed with the bedside nurse, tried multiple times to reach out to the family but could not. Case discussed with Dr. Lopez. Plan discussed with: Patient, Other My Orders Orders - SULY BUENROSTRO RESDIPETERSON Procedure Category Date Status Time Admit ADMIT 07/01/24 Transmitted 02:34 Code Status CODE 07/01/24 Transmitted 02:34 Vital Signs [facility] 07/01/24 Transmitted 02:34 Review Orders With [facility] 07/01/24 Transmitted Adm. 02:34 Notify Of Changes [facility] 07/01/24 Transmitted From Base 02:34 Advance Directive [facility] 07/01/24 Transmitted 02:34 Patient Condition ORDERS 07/01/24 Transmitted 02:34 Allergies [facility] 07/01/24 Transmitted 02:34 Ondansetron Hcl PHA 07/01/24 Transmitted (Zofran) 02:45 Oxygen By Nasal RT 07/01/24 Transmitted Cannula 02:34 Stat Ekg For Chest [facility] 07/01/24 Transmitted Pain 02:34 Notify Md Of Changes [facility] 07/01/24 Transmitted From Base 02:34 Commercial Credit Specialist For [facility] 07/01/24 Transmitted 24 Hours 02:34 Emergency Dysrhythmia [facility] 07/01/24 Transmitted Protocol 02:34 Rhythm Strips Once [facility] 07/01/24 Transmitted Every Shift 02:34 Complete Blood Count LAB 07/01/24 Transmitted 02:34 Comprehensive LAB 07/01/24 Transmitted Metabolic Panel 02:34 Blood Culture [facility] 07/01/24 Transmitted 02:34 Urine Bacterial [facility] 07/01/24 Transmitted Culture 02:34 Ammonia LAB 07/01/24 Transmitted 02:34 Urine Sodium LAB 07/01/24 Transmitted 02:34 Urine LAB 07/01/24 Transmitted Protein/Creatinine Urine Creatinine LAB 07/01/24 Transmitted 02:34 * Radiologist Consult CONS 07/01/24 Transmitted 02:34 * Gi D[employer] Car Attendant CONS 07/01/24 Transmitted 02:34 Iron Panel LAB 07/01/24 Transmitted 02:34 Ferritin LAB 07/01/24 Transmitted 02:34 Vitamin D, 25-Hydroxy LAB 07/01/24 Transmitted 02:34 Vitamin B12 LAB 07/01/24 Transmitted 02:34 Folate (Folic Acid) LAB 07/01/24 Transmitted 02:34 Malnutrition Alert CONS 07/01/24 Transmitted 02:34 Zosyn Extended PHA 07/01/24 Transmitted Infusion 10:00 Vancomycin Per PHA 07/01/24 Transmitted Pharmacy 02:45 Pantoprazole PHA 07/01/24 Transmitted (Protonix) 02:45 Pantoprazole PHA 07/01/24 Transmitted (Protonix) 10:00 Lactulose Oral PHA 07/01/24 Transmitted 02:45 Lactulose Oral PHA 07/01/24 Transmitted 10:00 Stool Occult Blood LAB 07/01/24 Transmitted 02:34 Date of Service: Jun 30, 2024 Billing Provider: RAJIV LOPEZ MD Common Visit Codes: [id number] INP/OBS CARE (HIGH) SULY BUENROSTRO RESDIPETERSON Jul 01, 2024 03:05 RAJIV LOPEZ MD Jul 01, 2024 14:40
[2024-07-01] MEDS: MIDODRINE HCL 10 MG TAB PO ONE (03:15)
[2024-07-01] MEDS: PANTOPRAZOLE 40 MG/10 ML VIAL INJ IV ONE (04:20)
[2024-07-01] MEDS: VANCOMYCIN 1GM/250mL NS or D5W KIT IV SCH (04:22)
[2024-07-01] MEDS: ALBUMIN 25% 100 ML IV ONE (05:18)
[2024-07-01] MEDS: MIDODRINE HCL 10 MG TAB PO SCH (06:00)
--- NOTE | 2024-07-01 09:12 | DVHNC2 ---
SULY BUENROSTRO RESDIENT 07/01/24 0912: Procedure - Paracentesis Procedure Note INDICATION: Massive Ascitis PROCEDURE SERVICE TECH/WELDER: _ Ultrasound used to fatou location: Y Time and Date: 07/01/2024 at 9:00 am CONSENT: Consent was obtained from brother prior to the procedure. Indications, risks, and benefits were explained at length. PROCEDURE SUMMARY: A time-out was performed. My hands were washed immediately prior to the procedure. I wore a surgical cap, mask with protective eyewear, sterile gown and sterile gloves throughout the procedure. The area was cleansed and draped in usual sterile fashion using chlorhexidine scrub. Anesthesia was achieved with 1% lidocaine. The surface of the abdomen was prepped and draped in a sterile fashion using chlorhexidine scrub. 1% lidocaine was used to numb the skin, soft tissue and peritoneum. The paracentesis catheter was inserted and advanced with negative pressure until light yellow colored fluid was aspirated. Approximately 60 mL of ascitic fluid was collected and sent for laboratory analysis. The catheter was then connected to the Vacutainer and around 7 liters of additional ascitic fluid were drained. The catheter was removed and no leaking was noted. A bandage was placed over the puncture wound. The patient tolerated the procedure well without any immediate complications. Estimated blood loss was 5 ml. Post procedure vitals were checked and stable. RAJIV JULIAN MD 07/01/24 1457: Date of Service: Jul 01, 2024 Billing Provider: RAJIV JULIAN MD Common Visit Codes: PROCEDURE ONLY Procedure Codes: [id number] W/O IMAGING SULY BUENROSTRO RESDIENT Jul 01, 2024 09:12 RAJIV JULIAN MD Jul 01, 2024 14:57
[2024-07-01] MEDS: OCTREOTIDE ACETATE 100 MCG/ML VL SUBCUT SCH (09:28)
[2024-07-01] MEDS: ALBUMIN 25% 50 ML IV SCH (09:29)
[2024-07-01] MEDS: LACTULOSE 20Gm/30ML SOLN PO SCH ×2 (10:00→15:53)
[2024-07-01] MEDS: PIPERACILLIN-TAZOB 3.375GM 100 ML IV SCH (10:00)
[2024-07-01] MEDS: LINEZOLID 600MG/300ML 300 ML IV SCH (10:10)
[2024-07-01 10:29] LABS: Basophils # (auto) 0 10 ^3/uL (0-0.2); Basophils % (auto) 0.4 % (0.0-2.0); Eosinophils # (auto) 0 10 ^3/uL (0-0.8); Eosinophils % (auto) 0.4 % (0.0-7.0); Hematocrit 18.7 % (41.0-53.0); Lymphocytes # (auto) 1.3 10 ^3/uL (0.4-5.4); Mean Corpuscular Hgb Conc. 35.2 g/dL (32.0-36.0); Mean Corpuscular Volume 91.2 fL (80.0-100.0); Monocytes # (auto) 1.1 10 ^3/uL (0-1.3); Neutrophils # (auto) 5.5 10 ^3/uL (1.6-8.6); Neutrophils % (auto) 69.2 % (37.0-80.0); Nucleated Red Blood Cells % 0.1 %; Platelet Count (auto) 135 10^3/uL (140-450); Red Blood Cells 2.05 10^6/uL (4.5-5.90); Red Cell Distribution Width 16.6 % (11.8-14.3); White Blood Cell 7.9 10^3/uL (4.4-10.8)
[2024-07-01 10:34] LABS: Hemoglobin 6.6 g/dL (13.5-17.5)
[2024-07-01 10:42] LABS: Alanine Aminotransferase 10 U/L (7-40); Alkaline Phosphatase 102 U/L (46-116); Aspartate Aminotransferase 37 U/L (13-40); BUN/Creatinine Ratio 10.7 (10.0-20.0); Potassium 4.9 mmol/L (3.5-5.1)
[2024-07-01 10:45] LABS: Chloride 84 mmol/L (98-107); Sodium 135 mmol/L (136-145)
[2024-07-01 10:47] LABS: Albumin 2.9 g/dL (3.2-4.8); Anion Gap 10.99999 (5-15); Bilirubin, Total 8.4 mg/dL (0.2-1.0); Blood Urea Nitrogen 53 mg/dL (9-23); Calcium 8.3 mg/dL (8.7-10.4); Carbon Dioxide > 40 mmol/L (20-31); Glucose 137 mg/dL (74-106); Total Protein 5.4 g/dL (5.7-8.2)
[2024-07-01] MEDS: SODIUM CHLORIDE 0.9% 1,000 ML IV ONE (11:00)
[2024-07-01] MEDS ORDERED: LACTULOSE 20Gm/30ML SOLN PO SCH (11:00)
[2024-07-01 11:03] LABS: Platelet Estimate Decreased
[2024-07-01 11:43] LABS: % Iron Saturation 56.8 % (20-55)
[2024-07-01] MEDS ORDERED: LACTULOSE 10g/15ml SOLN 473ML PR SCH (12:00)
[2024-07-01 12:16] LABS: Body Fluid Red Blood Cells 0 CUMM (0-2000); Body Fluid White Blood Cells 2108 CUMM (0-200)
[2024-07-01 12:32] LABS: Ferritin 1619.9 ng/mL (22-322)
--- NOTE | 2024-07-01 12:42 | DVHINCON2 ---
GI Consult Consult Note GI consult note Date of Consultation: 07/01/2024 Chief Complaint: Hepatic encephalopathy liver failure Referring Physician: Dr. Suazo H&P: 53-year-old male presented to ER with altered level of consciousness History from chart and compliance review specialist members of patient had noticed that patient was getting generalized weakness and lethargy for the past few days Patient has history of liver and kidney failure. And history of alcoholism Patient had moderate abdominal distention SP paracentesis with 7 L removed No history of nausea vomiting or hematemesis. No melena or red blood in stool SP EGD 10/31/2020 Dr. Matute gastritis no active bleeding Past Medical History: Anxiety, Cancer, CKF, Liver, hepatorenal syndrome Past Surgical History: Denies per chart Social History: Smoker: Non-Smoker Alcohol: Heavy Drugs: Denies Drug Use Lives In: Home Family History: Unknown Review of Systems: As above Physical exam: General: Lethargic,oriented to person Chest: lung thompson clear to auscultation Heart: RRR, no murmur Abdomen: Drbw-lv-lahjwvps-distended, no tenderness to palpation, +BS Skin: +jaundice, multiple bruises Labs: Labs Test 07/01/24 10:00 07/01/24 08:53 06/30/24 21:53 06/30/24 21:45 Range/Units White Blood Count 7.9 # 4.4-10.8 10^3/uL Red Blood Count 2.05 L 4.5-5.90 10^6/uL Hemoglobin 6.6 *L 13.5-17.5 g/dL Hematocrit 18.7 L 41.0-53.0 % Mean Corpuscular Volume 91.2 80.0-100.0 fL Mean Corpuscular Hemoglobin 32.0 28.0-32.0 pg Mean Corpuscular Hemoglobin Concent 35.2 32.0-36.0 g/dL Red Cell Distribution Width 16.6 H 11.8-14.3 % Platelet Count 135 L 140-450 10^3/uL Mean Platelet Volume 7.7 6.9-10.8 fL Neutrophils (%) (Auto) 69.2 37.0-80.0 % Lymphocytes (%) (Auto) 16.0 10.0-50.0 % Monocytes (%) (Auto) 14.0 H 0.0-12.0 % Eosinophils (%) (Auto) 0.4 0.0-7.0 % Basophils (%) (Auto) 0.4 0.0-2.0 % Neutrophils # (Auto) 5.5 1.6-8.6 10 ^3/uL Lymphocytes # (Auto) 1.3 0.4-5.4 10 ^3/uL Monocytes # (Auto) 1.1 0-1.3 10 ^3/uL Eosinophils # (Auto) 0 0-0.8 10 ^3/uL Basophils # (Auto) 0 0-0.2 10 ^3/uL Nucleated Red Blood Cells 0.1 % Platelet Estimate Decreased Sodium Level 135 L 136-145 mmol/L Potassium Level 4.9 3.5-5.1 mmol/L Chloride Level 84 L 98-107 mmol/L Carbon Dioxide Level > 40 *H 20-31 mmol/L Anion Gap 10.25006 5-15 Blood Urea Nitrogen 53 #H 9-23 mg/dL Creatinine 4.97 H 0.700-1.30 mg/dL Glomerular Filtration Rate Calc 13 >90 mL/min BUN/Creatinine Ratio 10.7 10.0-20.0 Serum Glucose 137 H 74-106 mg/dL Calcium Level 8.3 L 8.7-10.4 mg/dL Iron Level 54 L 65-175 ug/dL Total Iron Binding Capacity 95 L 250-425 ug/dL Percent Iron Saturation 56.8 H 20-55 % Total Bilirubin 8.4 H 0.2-1.0 mg/dL Aspartate Amino Transferase (AST) 37 13-40 U/L Alanine Aminotransferase (ALT) 10 7-40 U/L Alkaline Phosphatase 102 46-116 U/L Ammonia 20 11-32 umol/L Troponin I High Sensitivity 13 </=54 ng/L Total Protein 5.4 L 5.7-8.2 g/dL Albumin 2.9 L 3.2-4.8 g/dL Vitamin D 25-Hydroxy 28.5 L 30.0-100 ng/mL Body Fluid Source Peritoneal fluid Body Fluid pH 9.0 Body Fluid WBC (Manual) 2108 H 0-200 CUMM Body Fluid RBC (Manual) 0 0-2000 CUMM Body Fluid Mononuclear Cells 2 % Body Fluid Polymorphonuclear Cells 98 H 0-25 % POC Glucose 88 70-106 mg/dl Prothrombin Time 18.5 H 9.3-11.8 sec Prothrombin Time INR 1.86 H 0.9-1.15 Activated Partial Thromboplast Time 46.9 H 24.5-34.5 SEC Test 06/30/24 21:44 Range/Units Magnesium Level 2.4 1.6-2.6 mg/dL Plasma/Serum Blood Alcohol 3.6 <10 mg/dL Imaging: CT abdomen pelvis IMPRESSION: Small bilateral pleural effusions partially imaged. Cirrhosis with large volume abdominopelvic ascites. Colonic thickening with pericolonic fat stranding. Correlate for colitis. Portal colopathy may also appear similarly. Assessment: Acute metabolic encephalopathy Liver cirrhosis Alcohol use disorder Ascites SP paracentesis Severe anemia Possible colitis Acquired coagulopathy Plan: Discussed with Dr. Stahl Patient is being transfused 2nd unit of PRBC, monitor labs Protonix We will continue to follow this patient Thank you for this consult Date of Service: Jul 01, 2024 Billing Provider: KOURTNEY PINTO Common Visit Codes: CONSULT ONLY Consultation Codes: [id number] CONSULT <60MIN KOURTNEY PINTO Jul 01, 2024 12:42
[2024-07-01] MEDS ORDERED: BUMETANIDE INJECTION 25 MG in GIVE UN-DILUTED 0 ML IV SCH (14:00)
--- NOTE | 2024-07-01 14:53 | DVH ---
US KIDNEY HISTORY: tj COMPARISON: None TECHNIQUE: Transverse and longitudinal grayscale and color Doppler images were obtained of the kidney s and bladder. FINDINGS: Right kidney: Size: 9.8 cm Cortical thickness: Thin Echogenicity: Increased Stones: None Masses: None Hydronephrosis: None Ureters: Not well visualized. Other: None Left kidney: Size: 10.9 cm Cortical thickness: Thin Echogenicity: Increased Stones: None Masses: None Hydronephrosis: None Ureters: Not well visualized. Other: None Bladder: Normal Other: Small amount of ascites. Enlarged spleen. IMPRESSION: Thin echogenic renal cortex can be seen with medical renal disease.
[2024-07-01 15:21] LABS: Base Excess 12.7 mmol/L (-2.0-3.0)
--- NOTE | 2024-07-01 15:26 | DVHPNRES ---
Progress Note Date Seen: Jul 01, 2024 Resident Creating Document: AUDRA CRANDALL RESIDENT Has the PT tested + for MRSA If YES, has PT been informed?: No Medical Necessity Reason Pt with a Central, PICC or Fol: Yes Subjective Review of Systems A 53-year-old male with past medical history of liver cirrhosis (due to alcohol use disorder)and CKD brought to the hospital due to altered mental status. Family were called, but the didnt answer, all the info was taken to the medical records Per EMS reports patient was taken from home and per family member he has been altered since 1 week which has progressively worsened. He was admitted on 10/31/2020 and DVT H due to GI bleeding, EGD was performed, showed gastritis with no active bleeding. PMHx: Liver cirrhosis due to alcohol use disorder, CKD Social history: Has history of alcohol use disorder 07/01/2024: paracentesis done 7LT, multiple wbc in the ascitic fluid, labile BPs, midodrine and octeotride started, zosyn and linezolid due to sepsis and possible SBP, start levophed if MAP below 60, fluids were given, protonix BID Objective vital signs Vital Sign Date Time Temp Pulse Resp B/P (MAP) Pulse Ox O2 Delivery O2 Flow Rate FiO2 07/01/24 13:56 97.8 90 18 98/45 97.8 07/01/24 09:00 100 07/01/24 07:30 Nasal Cannula* 6 44 Total Intake and Output 06/30/24 06/30/24 07/01/24 15:00 23:00 07:00 Intake Total 1456 ml Output Total 0 ml Balance 1456 ml medications Current Medications Medications Dose Ordered Sig/Erik Route Start Time Stop Time Status Last Admin Dose Admin Ondansetron HCl 4 mg Q4HP PRN IV 07/01/24 02:45 Piperacillin Sod/ Tazobactam Sod 100 ml @ 25 mls/hr Q12HR IV 07/01/24 10:00 Midodrine 10 mg TID@0600,1200,1800 PO 07/01/24 06:00 07/01/24 12:13 10 MG Octreotide Acetate 100 mcg TID SUBCUT 07/01/24 07:30 07/01/24 09:28 100 MCG Linezolid 300 ml @ 150 mls/hr Q12HR@0800,2000 IV 07/01/24 08:00 07/01/24 10:10 150 MLS/HR Albumin Human 50 ml @ 100 mls/hr Q8H IV 07/01/24 09:00 07/02/24 01:29 07/01/24 09:29 100 MLS/HR Pantoprazole Sodium 40 mg BID IV 07/01/24 22:00 Lactulose 30 ml Q8HR PO 07/01/24 14:00 Bumetanide 25 mg/ Miscellaneous 100 ml @ 4 mls/hr Q24H IV 07/01/24 14:00 Examination General Appearance: Lethargic, oriented to person, disoriented to time and place. HEENT: Atraumatic, PERRLA, EOMI, Mucous membrane moist/pink Respiratory: Clear to auscultation, Normal air movement Cardiovascular: Regular rate, Normal S1, Normal S2, No murmurs, no chest wall tenderness Abdominal: less distension after paracentesis, puncture without bleeding Extremities: No clubbing, No cyanosis, No edema, Normal pulses, No tenderness/swelling Skin: Generalized yellow discoloration of skin, petechial/purpuric lesion and upper limb laboratory and microbiology Laboratory Tests 07/01/24 10:00 Test 07/01/24 10:00 Range/Units Serum Glucose 137 H 74-106 mg/dL Problem List/Assessment/Plan Problem List/Assessment/Plan Acute metabolic encephalopathy, likely due to decompensated liver cirrhosis Hepatic failure/Liver cirrhosis, due to alcohol use disorder Massive ascites, likely due to liver cirrhosis Acute hypoxic respiratory failure, likely due to massive ascites Alcohol use disorder Severe anemia, likely due to GI bleeding Possible GI bleeding, unspecified location Possible colitis Pleural effusion, likely due to massive ascites Spontaneous bacterial peritonitis Sepsis, likely due to above Acquired coagulopathy, likely due to liver failure Acute kidney injury----ATN in the setting of hypotension/ blood loss versus hepatorenal syndrome Severe malnutrition CT scan shows small bilateral pleural effusion, liver cirrhosis with large abdominopelvic ascites, colonic thickening with pericolonic fat stranding,? colitis Consulted GI pending SOB, hold on scope for now 3rbc given Paracentesis: 7Lt pulled out: high wbc in the ascitic fluid Blood, urine culture Empiric antibiotic Zosyn and linezolid Oxygen through nasal cannula IV albumin Trend ammonia Lactulose 30 mg TID Albumin is 2.7 Bumex drip per nephro If MAP below 60, please start levophed DIET: NPO except medicines DVT PROPHYLAXIS: No anticoagulant indicated, due to possible bleeding/severe anemia GI PROPHYLAXIS:: Protonix BOWEL REGIMEN: Lactulose DISPOSITION: Telemetry Patient's status and plan discussed with the bedside nurse, tried multiple times to reach out to the family but could not. Case discussed with Dr. Riojas Plan discussed with: Patient, Other (rn) My Orders My Orders Orders - AUDRA CRANDALL RESIDENT Procedure Category Date Status Time Octreotide Acetate PHA 07/01/24 In Process (Sandostatin) 07:30 Linezolid 600mg/300ml PHA 07/01/24 In Process (Zyvox) 08:00 Albumin 25% (Albutein) PHA 07/01/24 In Process 09:00 Insert Midline ORDERS 07/01/24 Transmitted 08:59 * [facility] Judge CONS 07/01/24 Transmitted Consult Comprehensive LAB 07/01/24 Logged Hepatitis Panel 10:22 Pantoprazole PHA 07/01/24 In Process (Protonix) 22:00 Stool Occult Blood LAB 07/01/24 Logged 11:49 Lactulose Oral PHA 07/01/24 In Process 14:00 Abg W/ Co-Ox RT 07/01/24 Logged 13:54 Communication Order ORDERS 07/01/24 Verified 15:25 CC Plasma Assessment Blood Product Administration S: [id number] Date of Service: Jul 01, 2024 Billing Provider: ROBERT RIOJAS DO Common Visit Codes: [id number] INP/OBS CARE(HIGH) AUDRA CRANDALL RESIDENT Jul 01, 2024 15:26 ROBERT RIOJAS DO Jul 03, 2024 12:02
--- NOTE | 2024-07-01 17:14 | DVHINCON2 ---
Date of service: Jul 01, 2024 Referring Physician dm Reason for Consultation [place] History of Present Illness 53 years old male past medical history of alcoholic liver cirrhosis Chronic kidney disease, presented with chief complaints of altered mental status patient found to have Acute kidney injury, significant ascites needed paracentesis with 7 L out,, he is a poor historian HPI obtained from the chart He is also getting blood transfusions given low hemoglobin Past Medical History As per HPI Allergies: Coded Allergies: NO KNOWN ALLERGIES (Unverified , 03/26/19) Home Meds No Active Prescriptions or Reported Meds Current Medications Current Medications Medications (Trade) Dose Ordered Sig/Erik Route PRN Reason Start Time Stop Time Status Last Admin Ondansetron HCl (Zofran) 4 mg Q4HP PRN IV NAUSEA / VOMITING 07/01/24 02:45 Piperacillin Sod/ Tazobactam Sod 100 ml @ 25 mls/hr Q12HR IV 07/01/24 10:00 Vancomycin HCl 0 ml @ 0 mls/hr UD IV 07/01/24 02:45 07/01/24 07:24 DC Pantoprazole Sodium (Protonix) 40 mg DAILY IV 07/02/24 10:00 07/01/24 11:49 DC Lactulose 30 ml BID PO 07/01/24 10:00 07/01/24 10:48 DC Vancomycin HCl 250 ml @ 250 mls/hr Q1H IV 07/01/24 03:00 07/01/24 04:59 DC 07/01/24 06:24 Midodrine (Proamatine Tablet) 10 mg TID@0600,1200,1800 PO 07/01/24 06:00 07/01/24 17:08 Octreotide Acetate (SandoSTATIN) 100 mcg TID SUBCUT 07/01/24 07:30 07/01/24 15:54 Linezolid 300 ml @ 150 mls/hr Q12HR@0800,2000 IV 07/01/24 08:00 07/01/24 10:10 Albumin Human 50 ml @ 100 mls/hr Q8H IV 07/01/24 09:00 07/02/24 01:29 07/01/24 17:07 Lactulose 30 ml TID PO 07/01/24 11:00 07/01/24 10:52 DC Lactulose 300 ml Q6HR [place] 07/01/24 12:00 07/01/24 12:39 DC Pantoprazole Sodium (Protonix) 40 mg BID IV 07/01/24 22:00 Lactulose 30 ml Q8HR PO 07/01/24 14:00 07/01/24 15:53 Bumetanide 25 mg/ Miscellaneous 100 ml @ 4 mls/hr Q24H IV 07/01/24 14:00 Family History: FH: breast cancer mother FH: hypertension father Review of Systems Poor historian H&P Exam Vital Signs/I&O Vital Sign Date Time Temp Pulse Resp B/P (MAP) Pulse Ox O2 Delivery O2 Flow Rate FiO2 07/01/24 16:21 97.8 93 18 105/43 97.8 07/01/24 09:00 100 07/01/24 07:30 Nasal Cannula* 6 44 Intake and Output 06/30/24 07/01/24 19:00 07:00 Intake Total 1456 ml Output Total 0 ml Balance 1456 ml Intake Oral 0 ml IV Total 1100 ml Blood Product 356 ml Output Urine Total 0 ml # Bowel Movements 1 Physical Exam General-not in any distress HEENT-normocephalic, Respiratory-fair air entry bilateral, [id number] heard, Abdominal-distended Musculoskeletal-positive pedal edema, left greater than right Genitourinary-deferred Neuro-awake not alert or oriented Psychiatric-not agitated, cooperative, Labs/Diagnostic Data Labs/Diagnostic Data Laboratory Tests Test 07/01/24 15:13 07/01/24 10:00 07/01/24 08:53 06/30/24 21:53 Range/Units Blood Gas Specimen Type Arterial Blood Gas Sample Site Left radial Blood Gas Patient Temperature 37.0 Arterial Blood Date Drawn [id number] Arterial Blood pH 7.505 H 7.350-7.450 Arterial Blood Partial Pressure CO2 48.0 35.0-48.0 mmHg Arterial Blood Partial Pressure O2 66.8 L 83.0-108.0 mmHg Arterial Blood HCO3 37.0 H 21.0-28.0 mmol/L Arterial Blood Oxygen Saturation 91.0 L 94.0-98.0 % Arterial Blood Base Excess 12.7 H -2.0-3.0 mmol/L Arterial Blood Oxyhemoglobin 88.8 L 94.0-98.0 % Arterial Blood Carboxyhemoglobin 1.6 H 0.5-1.5 % Arterial Blood Methemoglobin 0.8 0.0-1.5 % Johnny Test Yes Blood Gas Total Hemoglobin 7.40 L 13.5-17.5 g/dL Blood Gas Liter Flow 6.00 Blood Gas Modality Nasal cannula FiO2 % 44.0 White Blood Count 7.9 # 4.4-10.8 10^3/uL Red Blood Count 2.05 L 4.5-5.90 10^6/uL Hemoglobin 6.6 *L 13.5-17.5 g/dL Hematocrit 18.7 L 41.0-53.0 % Mean Corpuscular Volume 91.2 80.0-100.0 fL Mean Corpuscular Hemoglobin 32.0 28.0-32.0 pg Mean Corpuscular Hemoglobin Concent 35.2 32.0-36.0 g/dL Red Cell Distribution Width 16.6 H 11.8-14.3 % Platelet Count 135 L 140-450 10^3/uL Mean Platelet Volume 7.7 6.9-10.8 fL Neutrophils (%) (Auto) 69.2 37.0-80.0 % Lymphocytes (%) (Auto) 16.0 10.0-50.0 % Monocytes (%) (Auto) 14.0 H 0.0-12.0 % Eosinophils (%) (Auto) 0.4 0.0-7.0 % Basophils (%) (Auto) 0.4 0.0-2.0 % Neutrophils # (Auto) 5.5 1.6-8.6 10 ^3/uL Lymphocytes # (Auto) 1.3 0.4-5.4 10 ^3/uL Monocytes # (Auto) 1.1 0-1.3 10 ^3/uL Eosinophils # (Auto) 0 0-0.8 10 ^3/uL Basophils # (Auto) 0 0-0.2 10 ^3/uL Nucleated Red Blood Cells 0.1 % Platelet Estimate Decreased Sodium Level 135 L 136-145 mmol/L Potassium Level 4.9 3.5-5.1 mmol/L Chloride Level 84 L 98-107 mmol/L Carbon Dioxide Level > 40 *H 20-31 mmol/L Anion Gap 10.76984 5-15 Blood Urea Nitrogen 53 #H 9-23 mg/dL Creatinine 4.97 H 0.700-1.30 mg/dL Glomerular Filtration Rate Calc 13 >90 mL/min BUN/Creatinine Ratio 10.7 10.0-20.0 Serum Glucose 137 H 74-106 mg/dL Calcium Level 8.3 L 8.7-10.4 mg/dL Iron Level 54 L 65-175 ug/dL Total Iron Binding Capacity 95 L 250-425 ug/dL Percent Iron Saturation 56.8 H 20-55 % Ferritin 1619.9 H 22-322 ng/mL Total Bilirubin 8.4 H 0.2-1.0 mg/dL Aspartate Amino Transferase (AST) 37 13-40 U/L Alanine Aminotransferase (ALT) 10 7-40 U/L Alkaline Phosphatase 102 46-116 U/L Ammonia 20 11-32 umol/L Troponin I High Sensitivity 13 </=54 ng/L Total Protein 5.4 L 5.7-8.2 g/dL Albumin 2.9 L 3.2-4.8 g/dL Vitamin B12 Level 2308 H 211-911 pg/mL Vitamin D 25-Hydroxy 28.5 L 30.0-100 ng/mL Body Fluid Source Peritoneal fluid Body Fluid pH 9.0 Body Fluid WBC (Manual) 2108 H 0-200 CUMM Body Fluid RBC (Manual) 0 0-2000 CUMM Body Fluid Mononuclear Cells 2 % Body Fluid Polymorphonuclear Cells 98 H 0-25 % POC Glucose 88 70-106 mg/dl Test 06/30/24 21:45 06/30/24 21:44 Range/Units White Blood Count 15.2 H 4.4-10.8 10^3/uL Red Blood Count 1.90 L 4.5-5.90 10^6/uL Hemoglobin 6.1 *L 13.5-17.5 g/dL Hematocrit 17.8 L 41.0-53.0 % Mean Corpuscular Volume 93.3 80.0-100.0 fL Mean Corpuscular Hemoglobin 31.9 28.0-32.0 pg Mean Corpuscular Hemoglobin Concent 34.2 32.0-36.0 g/dL Red Cell Distribution Width 17.3 H 11.8-14.3 % Platelet Count 160 140-450 10^3/uL Mean Platelet Volume 8.1 6.9-10.8 fL Neutrophils (%) (Auto) 65.7 37.0-80.0 % Lymphocytes (%) (Auto) 15.0 10.0-50.0 % Monocytes (%) (Auto) 18.4 H 0.0-12.0 % Eosinophils (%) (Auto) 0.3 0.0-7.0 % Basophils (%) (Auto) 0.6 0.0-2.0 % Neutrophils # (Auto) 10.0 H 1.6-8.6 10 ^3/uL Lymphocytes # (Auto) 2.3 0.4-5.4 10 ^3/uL Monocytes # (Auto) 2.8 H 0-1.3 10 ^3/uL Eosinophils # (Auto) 0.1 0-0.8 10 ^3/uL Basophils # (Auto) 0.1 0-0.2 10 ^3/uL Nucleated Red Blood Cells 0.1 % Prothrombin Time 18.5 H 9.3-11.8 sec Prothrombin Time INR 1.86 H 0.9-1.15 Activated Partial Thromboplast Time 46.9 H 24.5-34.5 SEC Ammonia 54 H 11-32 umol/L Sodium Level 135 L 136-145 mmol/L Potassium Level 4.9 3.5-5.1 mmol/L Chloride Level 84 L 98-107 mmol/L Carbon Dioxide Level 39 H 20-31 mmol/L Anion Gap 12 5-15 Blood Urea Nitrogen 41 H 9-23 mg/dL Creatinine 4.94 H 0.700-1.30 mg/dL Glomerular Filtration Rate Calc 13 >90 mL/min BUN/Creatinine Ratio 8.3 L 10.0-20.0 Serum Glucose 90 74-106 mg/dL Calcium Level 8.4 L 8.7-10.4 mg/dL Magnesium Level 2.4 1.6-2.6 mg/dL Total Bilirubin 7.5 H 0.2-1.0 mg/dL Aspartate Amino Transferase (AST) 38 13-40 U/L Alanine Aminotransferase (ALT) 15 7-40 U/L Alkaline Phosphatase 121 H 46-116 U/L Total Protein 5.9 5.7-8.2 g/dL Albumin 2.7 L 3.2-4.8 g/dL Plasma/Serum Blood Alcohol 3.6 <10 mg/dL Assessment Acute kidney injury----ATN in the setting of hypotension/ blood loss versus he patorenal syndrome Hepatic encephalopathy Decompensated liver cirrhosis status post paracentesis Alcoholism Recommendations Ho catheter Ultrasound rule out obstruction Bumex drip as RN reported no urine output We will follow renal function Strict Is&Os charting Check urine sodium, protein, creatinine Avoid hypotension Continue midodrine and octreotide Maintain map greater than 65 Plan discussed with: Patient, Other SHANE YANES MD Jul 01, 2024 17:14
[2024-07-01] MEDS: BUMETANIDE INJECTION 12.5 MG in GIVE UN-DILUTED 0 ML IV SCH (19:00)
[2024-07-01 20:09] LABS: Protein, Urine 49.2 mg/dL (1-14)
[2024-07-01 20:11] LABS: Creatinine, Urine 83.04 mg/dL (30.0-125.0)
[2024-07-01 20:35] LABS: Amphetamine Screen, Urine Neg (NEGATIVE); Barbiturate Scree,Urine Neg (NEGATIVE); Benzodiazephine Screen, Urine Neg (NEGATIVE); Cannabinoid Screen, Urine Neg (NEGATIVE); Cocaine Screen, Urine Neg (NEGATIVE); Opiate Scree,Urine Neg (NEGATIVE); Phencyclidine Screen, Urine Neg (NEGATIVE)
[2024-07-01 20:40] LABS: Urine Bacteria FEW /hpf (None Seen); Urine Blood 3+ /uL (Negative); Urine Clarity Ex.Turbid (Clear); Urine Color Orange (Yellow); Urine Mucus FEW (None Seen); Urine Protein, UAD 1+ (Negative); Urine Specific Gravity 1.014 (1.001-1.035); Urine Squamous Epithelial Cell FEW /hpf (<5); Urine Urobilinogen Normal (Negative); Urine WBC 3958 /HPF (0-3); Urine WBC Clumps PRESENT /hpf (None Seen)
[2024-07-01] MEDS: PANTOPRAZOLE 40 MG/10 ML VIAL INJ IV SCH (21:20)
[2024-07-02] VITALS (10 sets, daily range): BP systolic 95–129; BP diastolic 44–59; PULSE 81–89; RESP 15–21; TEMP 97.2–97.9; O2SAT 94–100
[2024-07-02 06:16] LABS: Hemoglobin 8.3 g/dL (13.5-17.5); Mean Corpuscular Hemoglobin 31.5 pg (28.0-32.0)
[2024-07-02 06:24] LABS: Hematocrit 23.7 % (41.0-53.0); Mean Corpuscular Volume 89.9 fL (80.0-100.0); Platelet Count (auto) 113 10^3/uL (140-450); Red Blood Cells 2.63 10^6/uL (4.5-5.90); Red Cell Distribution Width 15.8 % (11.8-14.3); White Blood Cell 12.1 10^3/uL (4.4-10.8)
[2024-07-02 06:27] LABS: Basophils % (manual) 0 (0.0-2.0); Blast Cells 0; Eosinophils % (manual) 0 (0-7); Metamyelocytes % 0; Monocytes % (manual) 0 (0-12); Myelocytes % 0; Promyelocytes % 0; Reactive Lymphocytes 0
[2024-07-02 06:33] LABS: Alanine Aminotransferase 11 U/L (7-40); Alkaline Phosphatase 96 U/L (46-116); Anion Gap 8 (5-15); Potassium 4.4 mmol/L (3.5-5.1); Sodium 137 mmol/L (136-145)
[2024-07-02 06:42] LABS: BUN/Creatinine Ratio 10.7 (10.0-20.0)
[2024-07-02 06:45] LABS: Chloride 89 mmol/L (98-107)
[2024-07-02 06:46] LABS: Albumin 2.8 g/dL (3.2-4.8); Aspartate Aminotransferase 43 U/L (13-40); Bilirubin, Total 9.2 mg/dL (0.2-1.0); Blood Urea Nitrogen 57 mg/dL (9-23); Calcium 8.6 mg/dL (8.7-10.4); Carbon Dioxide 40 mmol/L (20-31); Glucose 124 mg/dL (74-106)
[2024-07-02 06:47] LABS: Total Protein 5.4 g/dL (5.7-8.2)
[2024-07-02 07:56] LABS: Band Neutrophils % (manual) 2; Lymphocytes % (manual) 28 (10.0-50.0)
[2024-07-02 07:57] LABS: Platelet Estimate Decreased
[2024-07-02 08:54] LABS: Hepatitis B Core Total AB Negative (Negative)
[2024-07-02] MEDS: PANTOPRAZOLE 40mg/50ML NS AE 50 ML IV SCH (09:05)
[2024-07-02] MEDS ORDERED: PANTOPRAZOLE 40 MG/10 ML VIAL INJ IV SCH (10:00)
--- NOTE | 2024-07-02 10:54 | DVHPNRES ---
Progress Note Date Seen: Jul 02, 2024 Resident Creating Document: AUDRA CRANDALL RESIDENT Has the PT tested + for MRSA If YES, has PT been informed?: No Medical Necessity Reason Pt with a Central, PICC or Fol: Yes Subjective Review of Systems A 53-year-old male with past medical history of liver cirrhosis (due to alcohol use disorder)and CKD brought to the hospital due to altered mental status. Family were called, but the didnt answer, all the info was taken to the medical records Per EMS reports patient was taken from home and per family member he has been altered since 1 week which has progressively worsened. He was admitted on 10/31/2020 and DVT H due to GI bleeding, EGD was performed, showed gastritis with no active bleeding. PMHx: Liver cirrhosis due to alcohol use disorder, CKD Social history: Has history of alcohol use disorder 07/01/2024: paracentesis done 7LT, multiple wbc in the ascitic fluid, labile BPs, midodrine and octeotride started, zosyn and linezolid due to sepsis and possible SBP, start levophed if MAP below 60, fluids were given, protonix BID 07/02/2024: renal function is declining, hb is stable, FOB neg, protonix drip started, bumex drip started Poor prognosis of the patient, discussing the case with the sister, JALEESA of the patient, she states she lives in [place] and she will like to transfer the patient there, I explained her that the patient is currently instable for transfer. Poor social network, patient will be candidate for palliative care when sepsis is controlled, also his kidney function is declining but due to the fragility state and poor network, dialysis couldnt be an option Objective vital signs Vital Sign Date Time Temp Pulse Resp B/P (MAP) Pulse Ox O2 Delivery O2 Flow Rate FiO2 07/02/24 09:00 97.4 89 21 124/50 (74) 96 97.4 07/01/24 20:00 Nasal Cannula* 6 44 Total Intake and Output 07/01/24 07/01/24 07/02/24 15:00 23:00 07:00 Intake Total 1650 ml 350 ml 0 ml Output Total 450 ml Balance 1650 ml 350 ml -450 ml medications Current Medications Medications Dose Ordered Sig/Erik Route Start Time Stop Time Status Last Admin Dose Admin Ondansetron HCl 4 mg Q4HP PRN IV 07/01/24 02:45 Piperacillin Sod/ Tazobactam Sod 100 ml @ 25 mls/hr Q12HR IV 07/01/24 10:00 07/01/24 21:20 25 MLS/HR Midodrine 10 mg TID@0600,1200,1800 PO 07/01/24 06:00 07/01/24 17:08 10 MG Octreotide Acetate 100 mcg TID SUBCUT 07/01/24 07:30 07/01/24 21:20 100 MCG Linezolid 300 ml @ 150 mls/hr Q12HR@0800,2000 IV 07/01/24 08:00 07/02/24 08:41 150 MLS/HR Lactulose 30 ml Q8HR PO 07/01/24 14:00 07/01/24 21:19 30 ML Bumetanide 12.5 mg/Miscellaneous 50 ml @ 2 mls/hr Q24H IV 07/01/24 18:00 07/01/24 19:00 2 MLS/HR Lorazepam 1 mg Q5MINP PRN IV 07/02/24 07:15 Pantoprazole Sodium 50 ml @ 10 mls/hr Q5H IV 07/02/24 07:15 07/02/24 09:05 10 MLS/HR Examination General Appearance: Lethargic, oriented to person, disoriented to time and place. HEENT: Atraumatic, PERRLA, EOMI, Mucous membrane moist/pink Respiratory: Clear to auscultation, Normal air movement Cardiovascular: Regular rate, Normal S1, Normal S2, No murmurs, no chest wall tenderness Abdominal: less distension after paracentesis, puncture without bleeding Extremities: No clubbing, No cyanosis, No edema, Normal pulses, No tenderness/swelling Skin: Generalized yellow discoloration of skin, petechial/purpuric lesion and upper limb laboratory and microbiology Laboratory Tests 07/02/24 04:40 Test 07/02/24 04:40 Range/Units Serum Glucose 124 H 74-106 mg/dL Microbiology Date/Time Source Procedure Growth Status 06/30/24 21:52 Blood Blood Culture - Preliminary NO GROWTH AFTER 24 HOURS OF INCUBATION. Resulted Problem List/Assessment/Plan Problem List/Assessment/Plan Acute metabolic encephalopathy, likely due to decompensated liver cirrhosis Hepatic failure/Liver cirrhosis, due to alcohol use disorder Massive ascites, likely due to liver cirrhosis Acute hypoxic respiratory failure, likely due to massive ascites Alcohol use disorder Severe anemia, likely due to GI bleeding Possible GI bleeding, unspecified location Possible colitis Pleural effusion, likely due to massive ascites Spontaneous bacterial peritonitis Sepsis, likely due to SBP and UTI Acquired coagulopathy, likely due to liver failure Acute kidney injury----ATN in the setting of hypotension/ blood loss versus hepatorenal syndrome Severe malnutrition Complicated UTI CT scan shows small bilateral pleural effusion, liver cirrhosis with large abdominopelvic ascites, colonic thickening with pericolonic fat stranding,? colitis Consulted GI pending SOB, hold on scope for now 3rbc given Paracentesis: 7Lt pulled out: high wbc in the ascitic fluid Blood, urine culture Empiric antibiotic Zosyn and linezolid Oxygen through nasal cannula IV albumin Trend ammonia Lactulose 30 mg TID Albumin is 2.7 Bumex drip per nephro If MAP below 60, please start levophed Ho catheter Poor prognosis of the patient, discussing the case with the sister, BRADA of the patient, she states she lives in [place] and she will like to transfer the patient there, I explained her that the patient is currently instable for transfer. Poor social network, patient will be candidate for palliative care when sepsis is controlled, also his kidney function is declining but due to the fragility state and poor network, dialysis couldnt be an option DIET: NPO except medicines DVT PROPHYLAXIS: No anticoagulant indicated, due to possible bleeding/severe anemia GI PROPHYLAXIS:: Protonix BOWEL REGIMEN: Lactulose DISPOSITION: Telemetry Case discussed with Dr. Riojas Plan discussed with: Patient, Other (rn, sister ) My Orders My Orders Orders - AUDRA CRANDALL RESIDENT Procedure Category Date Status Time Lactulose Oral PHA 07/01/24 In Process 14:00 Abg W/ Co-Ox RT 07/01/24 Logged 13:54 Communication Order ORDERS 07/01/24 Transmitted 15:25 Lorazepam 2mg/Ml Inj PHA 07/02/24 In Process (Ativan Inj) 07:15 Pantoprazole PHA 07/02/24 In Process 40mg/50ml Ns Ae 07:15 CC Plasma Assessment Blood Product Administration S: [id number] Date of Service: Jul 02, 2024 Billing Provider: ROBERT RIOJAS DO Common Visit Codes: [id number] INP/OBS CARE(HIGH) AUDRA CRANDALL RESIDENT Jul 02, 2024 10:54 ROBERT RIOJAS DO Jul 03, 2024 12:02
--- NOTE | 2024-07-02 11:26 | DVHPN2 ---
Progress Note Date Seen: Jul 02, 2024 Has the PT tested + for MRSA If YES, has PT been informed?: No Medical Necessity Reason Pt with a Central, PICC or Fol: Yes Subjective Patient reports: Other (altered ) Review of Systems: Deferred Objective vital signs Vital Sign Date Time Temp Pulse Resp B/P (MAP) Pulse Ox O2 Delivery O2 Flow Rate FiO2 07/02/24 09:00 97.4 89 21 124/50 (74) 96 97.4 07/01/24 20:00 Nasal Cannula* 6 44 Total Intake and Output 07/01/24 07/01/24 07/02/24 15:00 23:00 07:00 Intake Total 1650 ml 350 ml 0 ml Output Total 450 ml Balance 1650 ml 350 ml -450 ml medications Current Medications Medications Dose Ordered Sig/Erik Route Start Time Stop Time Status Last Admin Dose Admin Ondansetron HCl 4 mg Q4HP PRN IV 07/01/24 02:45 Piperacillin Sod/ Tazobactam Sod 100 ml @ 25 mls/hr Q12HR IV 07/01/24 10:00 07/01/24 21:20 25 MLS/HR Midodrine 10 mg TID@0600,1200,1800 PO 07/01/24 06:00 07/01/24 17:08 10 MG Octreotide Acetate 100 mcg TID SUBCUT 07/01/24 07:30 07/01/24 21:20 100 MCG Linezolid 300 ml @ 150 mls/hr Q12HR@0800,2000 IV 07/01/24 08:00 07/02/24 08:41 150 MLS/HR Lactulose 30 ml Q8HR PO 07/01/24 14:00 07/01/24 21:19 30 ML Bumetanide 12.5 mg/Miscellaneous 50 ml @ 2 mls/hr Q24H IV 07/01/24 18:00 07/01/24 19:00 2 MLS/HR Lorazepam 1 mg Q5MINP PRN IV 07/02/24 07:15 Pantoprazole Sodium 50 ml @ 10 mls/hr Q5H IV 07/02/24 07:15 07/02/24 09:05 10 MLS/HR Examination: GENERAL:Abnormal, LUNGS:Abnormal, MSK:Abnormal, NEURO:Abnormal laboratory and microbiology Laboratory Tests 07/02/24 04:40 Test 07/02/24 04:40 Range/Units Serum Glucose 124 H 74-106 mg/dL Microbiology Date/Time Source Procedure Growth Status 07/01/24 08:53 Ascities Fluid Gram Stain - Final Resulted 07/01/24 08:53 Ascities Fluid Body Fluid Culture - Preliminary Resulted 06/30/24 21:52 Blood Blood Culture - Preliminary NO GROWTH AFTER 24 HOURS OF INCUBATION. Resulted Problem List/Assessment/Plan Problem List/Assessment/Plan Acute kidney injury----ATN in the setting of hypotension/ blood loss versus hepatorenal syndrome Hepatic encephalopathy Decompensated liver cirrhosis status post paracentesis Alcoholism Recommendations Bumex drip We will follow renal function Strict Is&Os charting Check urine sodium, protein, creatinine Avoid hypotension Continue midodrine and octreotide Maintain map greater than 65 goals of care need to be addressed--hospice appropriate Plan discussed with: Other My Orders My Orders Orders - SHANE YANES MD Procedure Category Date Status Time Kidney US 07/01/24 Resulted 13:45 Bladder Scan ORDERS 07/01/24 Transmitted 13:45 Insert Ho Catheter [place] 07/01/24 In Process 14:26 Give Un-Diluted PHA 07/01/24 In Process (Gi... W/Bumetanide 18:00 CC Plasma Assessment Blood Product Administration S: [id number] SHANE YANES MD Jul 02, 2024 11:26
[2024-07-02 13:07] LABS: Albumin, Body Fluid 0.8 g/dL (Not Estab.); Amylase, Body Fluid < 3 U/L (.); Glucose, Body Fluid 93 mg/dL (.); LD, Body Fluid 229 IU/L (.); Protein, Body Fluid 1.2 g/dL (.)
[2024-07-02 13:40] LABS: Hepatitis A Total Antibody Positive (Negative); Hepatitis B Surface Antibody Negative (Negative); Hepatitis B Surface Antigen Negative (Negative); Hepatitis C Antibody Negative (Negative)
[2024-07-02 17:02] LABS: Folate (Folic Acid) 11.87 ng/mL (>5.38)
--- NOTE | 2024-07-02 17:41 | DVHPN2 ---
Progress Note - Dictate Date Seen: Jul 02, 2024 Has the PT tested + for MRSA If YES, has PT been informed?: No Medical Necessity Reason Pt with a Central, PICC or Fol: Yes Subjective Patient continues to be altered There has generalized lethargy and weakness S/P paracentesis with removal of 7 L of fluid Fluid cell count high suggestive of spontaneous bacterial peritonitis Patient has been started on IV antibiotics Patient received 3 units PRBC and his hemoglobin is up to 8.3 I believe the colonic wall stranding is likely related to colonic wall edema from fluid overload and ascites There was no diarrhea or rectal bleeding at this time vital signs Vital Sign Date Time Temp Pulse Resp B/P (MAP) Pulse Ox O2 Delivery O2 Flow Rate FiO2 07/02/24 17:00 97.6 85 18 129/55 (79) 100 97.6 07/02/24 08:15 Nasal Cannula* 4 36 Total Intake and Output 07/01/24 07/01/24 07/02/24 15:00 23:00 07:00 Intake Total 1650 ml 350 ml 0 ml Output Total 450 ml Balance 1650 ml 350 ml -450 ml medications Current Medications Medications Dose Ordered Sig/Erik Route Start Time Stop Time Status Last Admin Dose Admin Ondansetron HCl 4 mg Q4HP PRN IV 07/01/24 02:45 Piperacillin Sod/ Tazobactam Sod 100 ml @ 25 mls/hr Q12HR IV 07/01/24 10:00 07/02/24 11:50 25 MLS/HR Midodrine 10 mg TID@0600,1200,1800 PO 07/01/24 06:00 07/02/24 15:43 10 MG Octreotide Acetate 100 mcg TID SUBCUT 07/01/24 07:30 07/02/24 15:44 100 MCG Linezolid 300 ml @ 150 mls/hr Q12HR@0800,2000 IV 07/01/24 08:00 07/02/24 08:41 150 MLS/HR Lactulose 30 ml Q8HR PO 07/01/24 14:00 07/02/24 15:43 30 ML Bumetanide 12.5 mg/Miscellaneous 50 ml @ 2 mls/hr Q24H IV 07/01/24 18:00 07/01/24 19:00 2 MLS/HR Lorazepam 1 mg Q5MINP PRN IV 07/02/24 07:15 Pantoprazole Sodium 50 ml @ 10 mls/hr Q5H IV 07/02/24 07:15 07/02/24 17:12 10 MLS/HR objective General: Lethargic,oriented to person Chest: lung thompson clear to auscultation Heart: RRR, no murmur Abdomen: Lkfu-ew-pyvxxgqu-distended, no tenderness to palpation, +BS Skin: +jaundice, multiple bruises laboratory and microbiology Laboratory Tests 07/02/24 04:40 Test 07/02/24 04:40 Range/Units Serum Glucose 124 H 74-106 mg/dL Problems(with codes): (1) Icterus (2) Acute liver failure (3) Alcohol intoxication (4) Hypokalemia (5) Severe malnutrition (6) Anemia, chronic disease (7) Hepatorenal failure (8) Altered mental status (9) Hepatic encephalopathy Prognosis A/P Patient is critically ill with hepatorenal syndrome His MELD score is 35 points which is the active of 52.6% three-month mortality His Maddrey discrimination function is 43.7 suggestive of poor prognosis ; may need steroids Continue IV antibiotics for SBP Patient also has underlying evidence of UTI and possible urosepsis which may be the source Lactulose 30 mL p.o. twice a day for hepatic encephalopathy Thiamine and folic acid IV PPI Continue to monitor labs Prognosis remains guarded I will follow up patient with you closely Plan discussed with: Other (Sabi Buckley) CC Plasma Assessment Blood Product Administration S: [id number] SHANTAL BILLS MD Jul 02, 2024 17:41
[2024-07-03 01:00] VITALS: BP 115/62; PULSE 88; RESP 18; TEMP 97.6; O2SAT 100
[2024-07-03 05:00] VITALS: BP 118/65; PULSE 90; RESP 19; TEMP 97.6; O2SAT 100
[2024-07-03 07:00] LABS: Hematocrit 30.6 % (41.0-53.0); Hemoglobin 10.2 g/dL (13.5-17.5); Mean Corpuscular Hemoglobin 30.6 pg (28.0-32.0); Mean Corpuscular Hgb Conc. 33.3 g/dL (32.0-36.0); Platelet Count (auto) 127 10^3/uL (140-450); Red Blood Cells 3.33 10^6/uL (4.5-5.90); Red Cell Distribution Width 16.4 % (11.8-14.3); White Blood Cell 12.5 10^3/uL (4.4-10.8)
[2024-07-03 07:16] LABS: INR 1.66 (0.9-1.15); Prothrombin Time 16.7 sec (9.3-11.8)
[2024-07-03 07:23] LABS: Basophils % (manual) 0 (0.0-2.0); Blast Cells 0; Eosinophils % (manual) 0 (0-7); Metamyelocytes % 0; Myelocytes % 0; Promyelocytes % 0; Reactive Lymphocytes 0
[2024-07-03 07:25] LABS: Alanine Aminotransferase 14 U/L (7-40); Alkaline Phosphatase 102 U/L (46-116); Anion Gap 12 (5-15); Calcium 9.4 mg/dL (8.7-10.4); Potassium 4.3 mmol/L (3.5-5.1)
[2024-07-03 07:27] LABS: BUN/Creatinine Ratio 9.9 (10.0-20.0)
[2024-07-03 07:31] LABS: Aspartate Aminotransferase 41 U/L (13-40); Bilirubin, Total 11.1 mg/dL (0.2-1.0); Blood Urea Nitrogen 54 mg/dL (9-23); Carbon Dioxide 36 mmol/L (20-31); Chloride 87 mmol/L (98-107); Glucose 124 mg/dL (74-106); Sodium 135 mmol/L (136-145)
[2024-07-03 08:00] VITALS: PULSE 94
[2024-07-03 08:34] LABS: Anisocytosis Slight; Band Neutrophils % (manual) 2; Lymphocytes % (manual) 14 (10.0-50.0); Monocytes % (manual) 15 (0-12); Platelet Estimate Decreased
[2024-07-03] MEDS: THIAMINE HCL 100 MG TAB PO SCH (10:00)
[2024-07-03] MEDS: FOLIC ACID 1 MG TAB PO SCH (10:00)
[2024-07-03] MEDS: LORazepam 2MG/ML-1ML VIAL IV PRN (12:11)
--- NOTE | 2024-07-03 14:53 | DVHPN2 ---
Progress Note Date Seen: Jul 03, 2024 Has the PT tested + for MRSA If YES, has PT been informed?: No Medical Necessity Reason Pt with a Central, PICC or Fol: Yes Subjective Patient reports: Other (agitated,combative ) Review of Systems: Deferred Objective vital signs Vital Sign Date Time Temp Pulse Resp B/P (MAP) Pulse Ox O2 Delivery O2 Flow Rate FiO2 07/03/24 08:00 Nasal Cannula* 3 32 07/03/24 05:00 97.6 90 19 118/65 (82) 100 97.6 Total Intake and Output 07/02/24 07/02/24 07/03/24 15:00 23:00 07:00 Intake Total 350 ml 200 ml Output Total 400 ml 375 ml Balance 350 ml -200 ml -375 ml medications Current Medications Medications Dose Ordered Sig/Erik Route Start Time Stop Time Status Last Admin Dose Admin Ondansetron HCl 4 mg Q4HP PRN IV 07/01/24 02:45 Piperacillin Sod/ Tazobactam Sod 100 ml @ 25 mls/hr Q12HR IV 07/01/24 10:00 07/03/24 10:14 25 MLS/HR Midodrine 10 mg TID@0600,1200,1800 PO 07/01/24 06:00 07/02/24 18:10 10 MG Octreotide Acetate 100 mcg TID SUBCUT 07/01/24 07:30 07/02/24 21:43 100 MCG Linezolid 300 ml @ 150 mls/hr Q12HR@0800,2000 IV 07/01/24 08:00 07/03/24 10:13 150 MLS/HR Lactulose 30 ml Q8HR PO 07/01/24 14:00 07/02/24 21:43 30 ML Bumetanide 12.5 mg/Miscellaneous 50 ml @ 2 mls/hr Q24H IV 07/01/24 18:00 07/02/24 18:10 2 MLS/HR Lorazepam 1 mg Q5MINP PRN IV 07/02/24 07:15 07/03/24 12:11 1 MG Pantoprazole Sodium 50 ml @ 10 mls/hr Q5H IV 07/02/24 07:15 07/03/24 10:20 10 MLS/HR Thiamine HCl 100 mg DAILY PO 07/03/24 10:00 Folic Acid 1 mg DAILY PO 07/03/24 10:00 Examination: GENERAL:Abnormal, LUNGS:Abnormal, ABDOMEN:Abnormal, MSK:Abnormal, NEURO:Abnormal laboratory and microbiology Laboratory Tests 07/03/24 06:23 Test 07/03/24 06:23 Range/Units Serum Glucose 124 H 74-106 mg/dL Microbiology Date/Time Source Procedure Growth Status 07/01/24 17:21 Voided Urine Urine Culture - Preliminary Resulted 07/01/24 08:53 Ascities Fluid Gram Stain - Final Resulted 07/01/24 08:53 Ascities Fluid Body Fluid Culture - Preliminary Resulted 06/30/24 21:52 Blood Blood Culture - Preliminary NO GROWTH AFTER 48 HOURS OF INCUBATION. Resulted Problem List/Assessment/Plan Problem List/Assessment/Plan Acute kidney injury----ATN in the setting of hypotension/ blood loss versus hepatorenal syndrome Hepatic encephalopathy Decompensated liver cirrhosis status post paracentesis Alcoholism Recommendations no improvement in renal function called and spoke with pt sister JALEESA Mathur in [place]-informed her pt is very agitated and HD cant be done in this situation and also explained Pt overall prognosis is poor--she is considering hospice but not made final decision --informed her to have a family meeting and finalize goals of care no emegent indication for [employer] hold Bumex drip --switch to ivp We will follow renal function Strict Is&Os charting Continue midodrine and octreotide Maintain map greater than 65 goals of care need to be addressed--hospice appropriate Plan discussed with: Other (sister,RN) My Orders My Orders Orders - SHANE YANES MD Procedure Category Date Status Time * Radiologist Consult CONS 07/03/24 Transmitted 10:11 CC Plasma Assessment Blood Product Administration S: [id number] SHANE YANES MD Jul 03, 2024 14:53
--- NOTE | 2024-07-03 17:53 | DVHPN2 ---
Progress Note - Dictate Date Seen: Jul 03, 2024 Has the PT tested + for MRSA If YES, has PT been informed?: No Medical Necessity Reason Pt with a Central, PICC or Fol: Yes Subjective Patient is more awake and alert today responding appropriately to questions Patient states his abdomen feels better after the paracentesis S/P paracentesis with removal of 7 L of fluid Fluid cell count high suggestive of spontaneous bacterial peritonitis Patient has been started on IV antibiotics Patient received 3 units PRBC and his hemoglobin is up to 10.0 I believe the colonic wall stranding is likely related to colonic wall edema from fluid overload and ascites There was no diarrhea or rectal bleeding at this time vital signs Vital Sign Date Time Temp Pulse Resp B/P (MAP) Pulse Ox O2 Delivery O2 Flow Rate FiO2 07/03/24 08:00 94 07/03/24 08:00 Nasal Cannula* 3 32 07/03/24 05:00 97.6 19 118/65 (82) 100 97.6 Total Intake and Output 07/02/24 07/02/24 07/03/24 15:00 23:00 07:00 Intake Total 350 ml 200 ml Output Total 400 ml 375 ml Balance 350 ml -200 ml -375 ml medications Current Medications Medications Dose Ordered Sig/Erik Route Start Time Stop Time Status Last Admin Dose Admin Ondansetron HCl 4 mg Q4HP PRN IV 07/01/24 02:45 Piperacillin Sod/ Tazobactam Sod 100 ml @ 25 mls/hr Q12HR IV 07/01/24 10:00 07/03/24 10:14 25 MLS/HR Midodrine 10 mg TID@0600,1200,1800 PO 07/01/24 06:00 07/02/24 18:10 10 MG Octreotide Acetate 100 mcg TID SUBCUT 07/01/24 07:30 07/02/24 21:43 100 MCG Linezolid 300 ml @ 150 mls/hr Q12HR@0800,2000 IV 07/01/24 08:00 07/03/24 10:13 150 MLS/HR Lactulose 30 ml Q8HR PO 07/01/24 14:00 07/02/24 21:43 30 ML Lorazepam 1 mg Q5MINP PRN IV 07/02/24 07:15 07/03/24 12:11 1 MG Pantoprazole Sodium 50 ml @ 10 mls/hr Q5H IV 07/02/24 07:15 07/03/24 10:20 10 MLS/HR Thiamine HCl 100 mg DAILY PO 07/03/24 10:00 Folic Acid 1 mg DAILY PO 07/03/24 10:00 Bumetanide 1 mg BIDD IV 07/04/24 10:00 objective General: Lethargic,oriented to person Chest: lung thompson clear to auscultation Heart: RRR, no murmur Abdomen: Ionl-hm-ozuniyxs-distended, no tenderness to palpation, +BS Skin: +jaundice, multiple bruises laboratory and microbiology Laboratory Tests 07/03/24 06:23 Test 07/03/24 06:23 Range/Units Serum Glucose 124 H 74-106 mg/dL Problems(with codes): (1) Icterus (2) Serratia marcescens infection (3) MSSA (methicillin susceptible Staphylococcus aureus) pneumonia (4) Acute liver failure (5) GI bleed (6) Alcohol intoxication Prognosis A/P Patient is critically ill with hepatorenal syndrome His MELD score is 35 points which is the active of 52.6% three-month mortality His Maddrey discrimination function is 43.7 suggestive of poor prognosis ; may need steroids Continue IV antibiotics for SBP Patient also has underlying evidence of UTI and possible urosepsis which may be the source Lactulose 30 mL p.o. twice a day for hepatic encephalopathy Thiamine and folic acid IV PPI Continue to monitor labs Prognosis remains guarded I will follow up patient with you closely Possible repeat paracentesis on Saturday Dietary Evaluation Review Comments: 1) Consider EN/PN if NPO>7 days 2) advance diet to renal specific 40gm if medically feasible 3) Continue current plan of care Expected Outcomes/Goals: Pt will meet >75% estimated needs Fu 2-3 days Plan discussed with: Patient, Other (Sitter) CC Plasma Assessment Blood Product Administration S: [id number] SHANTAL BILLS MD Jul 03, 2024 17:53
--- NOTE | 2024-07-03 18:10 | DVHPN2 ---
Subjective I am assuming the care of the patient from today onwards chart reviewed. Patient remains altered. Currently on soft restraints. Changes from previous H/P or p: No Changes Objective Vitals Vital Signs Date Time Temp Pulse Resp B/P (MAP) Pulse Ox O2 Delivery O2 Flow Rate FiO2 07/03/24 08:00 94 07/03/24 08:00 Nasal Cannula* 3 32 07/03/24 05:00 97.6 19 118/65 (82) 100 97.6 Intake/Output Intake and Output 07/03/24 07:00 Intake Total 550 ml Output Total 775 ml Balance -225 ml Intake Oral 0 ml IV Total 550 ml Output Urine Total 775 ml # Bowel Movements 2 Exam HEENT pupils are reactive positive scleral icterus Neck is supple CV is S1-S2 regular rate and rhythm Respiratory diminished breath sounds bases GI positive bowel sounds positive ascites Extremity trace edema [employer] does not follow up commands Medications Current Medications Medications Dose Ordered Sig/Erik Route Start Time Stop Time Status Last Admin Dose Admin Ondansetron HCl 4 mg Q4HP PRN IV 07/01/24 02:45 Piperacillin Sod/ Tazobactam Sod 100 ml @ 25 mls/hr Q12HR IV 07/01/24 10:00 07/03/24 10:14 25 MLS/HR Midodrine 10 mg TID@0600,1200,1800 PO 07/01/24 06:00 07/02/24 18:10 10 MG Octreotide Acetate 100 mcg TID SUBCUT 07/01/24 07:30 07/02/24 21:43 100 MCG Linezolid 300 ml @ 150 mls/hr Q12HR@0800,2000 IV 07/01/24 08:00 07/03/24 10:13 150 MLS/HR Lactulose 30 ml Q8HR PO 07/01/24 14:00 07/02/24 21:43 30 ML Lorazepam 1 mg Q5MINP PRN IV 07/02/24 07:15 07/03/24 12:11 1 MG Pantoprazole Sodium 50 ml @ 10 mls/hr Q5H IV 07/02/24 07:15 07/03/24 10:20 10 MLS/HR Thiamine HCl 100 mg DAILY PO 07/03/24 10:00 Folic Acid 1 mg DAILY PO 07/03/24 10:00 Bumetanide 1 mg BIDD IV 07/04/24 10:00 Laboratory Results Laboratory Tests 07/03/24 06:23 Chemistry Test 07/03/24 06:23 Albumin 3.0 g/dL (3.2-4.8) L Calcium Level 9.4 mg/dL (8.7-10.4) Total Protein 6.0 g/dL (5.7-8.2) Coagulation Test 07/03/24 06:23 Prothrombin Time 16.7 sec (9.3-11.8) H Prothrombin Time INR 1.66 (0.9-1.15) H LFT Test 07/03/24 06:23 Alanine Aminotransferase (ALT) 14 U/L (7-40) Alkaline Phosphatase 102 U/L (46-116) Aspartate Amino Transferase (AST) 41 U/L (13-40) H Total Bilirubin 11.1 mg/dL (0.2-1.0) H Urinalysis Test 07/01/24 17:21 Urine Color Warrick (Yellow) H Urine Clarity Ex.turbid (Clear) Urine pH 7.0 (5.0-9.0) Urine Specific [place] 1.014 (1.001-1.035) Urine Protein 1+ (Negative) H Urine Ketones Negative (Negative) Urine Blood 3+ /uL (Negative) H Urine Nitrite Negative (Negative) Urine Bilirubin 1+ (Negative) Urine Urobilinogen Normal mg/dL (Negative) Urine Leukocyte Esterase 3+ /uL (Negative) Urine RBC 172 /hpf (0 - 3) Urine WBC Clumps Present /hpf (None Seen) Urine Microscopic WBC 3958 /HPF (0-3) H Urine Squamous Epithelial Cells Few /hpf (<5) Urine Transitional Epithelial Cells Few /hpf (<2) Urine Bacteria Few /hpf (None Seen) H Urine Mucus Few (None Seen) Urine Creatinine 83.04 mg/dL (30.0-125.0) Urine Sodium 29 mmol/L (40-220) L Urine Glucose Normal mg/dL (Normal) Urine Total Protein 49.2 mg/dL (1-14) H Microbiology Microbiology Date/Time Source Procedure Growth Status 07/01/24 17:21 Voided Urine Urine Culture - Preliminary Resulted 07/01/24 08:53 Ascities Fluid Gram Stain - Final Resulted 07/01/24 08:53 Ascities Fluid Body Fluid Culture - Preliminary Resulted 06/30/24 21:52 Blood Blood Culture - Preliminary NO GROWTH AFTER 48 HOURS OF INCUBATION. Resulted Assessment/Plan Assessment/Plan 53-year-old male with a known history of alcoholic liver cirrhosis, recurrent ascites initially presented to the hospital with altered mental status for one week found to have 1. Acute hepatic/metabolic encephalopathy 2. Decompensated liver cirrhosis 3. Massive ascites status post paracentesis 4. Acute kidney injury with oliguria suspect secondary to hypotension/hypovolemia/ hepatorenal syndrome 5. Acute on chronic anemia status post 2 units of packed RBC 6. Acute hypoxic respiratory failure secondary to massive ascites 7. Spontaneous bacterial peritonitis 8. Coagulopathy secondary to liver failure 9. Enterococcus UTI -continue current IV antibiotics, nephrology consultation for possible dialysis if indicated -patient overall has a very poor prognosis -no family member at bedside, continue octreotide, midodrine -we will follow up with the Nephrology, GI. Plan discussed with: Other Date of Service: Jul 04, 2024 Billing Provider: JONNY MARROQUIN MD Common Visit Codes: [id number] INP/OBS CARE(MOD), [id number] INP/OBS CARE(HIGH) JONNY MARROQUIN MD Jul 03, 2024 18:10
[2024-07-03 20:00] VITALS: PULSE 80; RESP 20
[2024-07-03] MEDS ORDERED: HALOPERIDOL LACTATE 5 MG/ML INJ VIAL IV PRN (23:30)
[2024-07-04] VITALS (9 sets, daily range): BP systolic 102–123; BP diastolic 52–122; PULSE 96–106; RESP 18–20; TEMP 98–99.6; O2SAT 98–100
[2024-07-04] MEDS: HALOPERIDOL LACTATE 5 MG/ML INJ VIAL IM ONE (00:01)
[2024-07-04 07:07] LABS: Prostate Specific Antigen 0.6 ng/mL (0.0-4.0)
[2024-07-04 08:07] LABS: AFP Serum Tumor Marker <1.8 ng/mL (0.0-8.4); PSA Free 0.05 ng/mL
[2024-07-04] MEDS: HALOPERIDOL LACTATE 5 MG/ML INJ VIAL IM PRN (09:51)
[2024-07-04] MEDS: ALBUMIN 25% 100 ML IV SCH (11:45)
--- NOTE | 2024-07-04 14:30 | DVHPN2 ---
Subjective Patient remains altered. Currently on soft restraints. Patient's has a sitter at bedside. Changes from previous H/P or p: No Changes Objective Vitals Vital Signs Date Time Temp Pulse Resp B/P (MAP) Pulse Ox O2 Delivery O2 Flow Rate FiO2 07/04/24 13:00 99.6 103 19 107/53 (71) 99.6 07/04/24 08:00 Nasal Cannula* 5 40 07/04/24 01:00 99 Intake/Output Intake and Output 07/04/24 07:00 Intake Total 550 ml Output Total 350 ml Balance 200 ml Intake Oral 200 ml IV Total 350 ml Output Urine Total 350 ml # Bowel Movements 1 Exam HEENT pupils are reactive positive scleral icterus Neck is supple CV is S1-S2 regular rate and rhythm Respiratory diminished breath sounds bases GI positive bowel sounds positive ascites Extremity trace edema 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 Medications Current Medications Medications Dose Ordered Sig/Erik Route Start Time Stop Time Status Last Admin Dose Admin Ondansetron HCl 4 mg Q4HP PRN IV 07/01/24 02:45 Piperacillin Sod/ Tazobactam Sod 100 ml @ 25 mls/hr Q12HR IV 07/01/24 10:00 07/04/24 09:51 25 MLS/HR Midodrine 10 mg TID@0600,1200,1800 PO 07/01/24 06:00 07/02/24 18:10 10 MG Octreotide Acetate 100 mcg TID SUBCUT 07/01/24 07:30 07/04/24 03:14 100 MCG Linezolid 300 ml @ 150 mls/hr Q12HR@0800,2000 IV 07/01/24 08:00 07/04/24 09:51 150 MLS/HR Lactulose 30 ml Q8HR PO 07/01/24 14:00 07/02/24 21:43 30 ML Lorazepam 1 mg Q5MINP PRN IV 07/02/24 07:15 07/03/24 12:11 1 MG Pantoprazole Sodium 50 ml @ 10 mls/hr Q5H IV 07/02/24 07:15 07/04/24 12:35 10 MLS/HR Thiamine HCl 100 mg DAILY PO 07/03/24 10:00 Folic Acid 1 mg DAILY PO 07/03/24 10:00 Bumetanide 1 mg BIDD IV 07/04/24 10:00 Haloperidol Lactate 5 mg Q8HP PRN IM 07/04/24 00:00 07/04/24 09:51 5 MG Albumin Human 100 ml @ 100 mls/hr Q8H IV 07/04/24 11:45 07/05/24 04:44 Laboratory Results Laboratory Tests 07/03/24 06:23 Urinalysis Test 07/01/24 17:21 Urine Color [place] (Yellow) H Urine Clarity Ex.turbid (Clear) Urine pH 7.0 (5.0-9.0) Urine Specific [place] 1.014 (1.001-1.035) Urine Protein 1+ (Negative) H Urine Ketones Negative (Negative) Urine Blood 3+ /uL (Negative) H Urine Nitrite Negative (Negative) Urine Bilirubin 1+ (Negative) Urine Urobilinogen Normal mg/dL (Negative) Urine Leukocyte Esterase 3+ /uL (Negative) Urine RBC 172 /hpf (0 - 3) Urine WBC Clumps Present /hpf (None Seen) Urine Microscopic WBC 3958 /HPF (0-3) H Urine Squamous Epithelial Cells Few /hpf (<5) Urine Transitional Epithelial Cells Few /hpf (<2) Urine Bacteria Few /hpf (None Seen) H Urine Mucus Few (None Seen) Urine Creatinine 83.04 mg/dL (30.0-125.0) Urine Sodium 29 mmol/L (40-220) L Urine Glucose Normal mg/dL (Normal) Urine Total Protein 49.2 mg/dL (1-14) H Microbiology Microbiology Date/Time Source Procedure Growth Status 07/01/24 17:21 Voided Urine Urine Culture - Preliminary Resulted 07/01/24 08:53 Ascities Fluid Gram Stain - Final Resulted 07/01/24 08:53 Ascities Fluid Body Fluid Culture - Preliminary Resulted 06/30/24 21:52 Blood Blood Culture - Preliminary NO GROWTH AFTER 72 HOURS OF INCUBATION. Resulted Assessment/Plan Assessment/Plan 53-year-old male with a known history of alcoholic liver cirrhosis, recurrent ascites initially presented to the hospital with altered mental status for one week found to have 1. Acute hepatic/metabolic encephalopathy 2. Decompensated liver cirrhosis 3. Massive ascites status post paracentesis 4. Acute kidney injury with oliguria suspect secondary to hypotension/hypovolemia/ hepatorenal syndrome 5. Acute on chronic anemia status post 2 units of packed RBC 6. Acute hypoxic respiratory failure secondary to massive ascites 7. Spontaneous bacterial peritonitis 8. Coagulopathy secondary to liver failure 9. Enterococcus UTI -continue current IV antibiotics, nephrology consultation for possible dialysis if indicated -patient overall has a very poor prognosis -no family member at bedside, continue octreotide, midodrine -we will follow up with the Nephrology, GI. Plan discussed with: Other Date of Service: Jul 04, 2024 Billing Provider: JONNY MARROQUIN MD Common Visit Codes: [id number] INP/OBS CARE(HIGH), NOT BILLABLE JONNY MARROQUIN MD Jul 04, 2024 14:30
[2024-07-04 15:08] LABS: Sodium 137 mmol/L (136-145)
[2024-07-04 15:09] LABS: Anion Gap 12 (5-15)
[2024-07-04 15:10] LABS: Calcium 9.3 mg/dL (8.7-10.4); Carbon Dioxide 37 mmol/L (20-31); Chloride 88 mmol/L (98-107); Potassium 5.2 mmol/L (3.5-5.1)
[2024-07-04 15:15] LABS: Blood Urea Nitrogen 73 mg/dL (9-23); Glucose 113 mg/dL (74-106)
[2024-07-04 15:22] LABS: BUN/Creatinine Ratio 11.8 (10.0-20.0)
[2024-07-04] MEDS: ALBUTEROL SULF 2.5 MG/0.5ML(0.5%) NEB SOLN NEB ONE (15:30)
[2024-07-04] MEDS: SODIUM ZIRCONIUM CYCL 10 GM PAK PO ONE (15:30)
--- NOTE | 2024-07-04 15:31 | DVHPN2 ---
Progress Note Date Seen: Jul 04, 2024 Has the PT tested + for MRSA If YES, has PT been informed?: No Medical Necessity Reason Pt with a Central, PICC or Fol: Yes Subjective Patient reports: Other (Patient is coherent however very agitated and refuses medications and care) Review of Systems: Deferred Objective vital signs Vital Sign Date Time Temp Pulse Resp B/P (MAP) Pulse Ox O2 Delivery O2 Flow Rate FiO2 07/04/24 13:00 99.6 103 19 107/53 (71) 99.6 07/04/24 08:00 Nasal Cannula* 5 40 07/04/24 01:00 99 Total Intake and Output 07/03/24 07/03/24 07/04/24 15:00 23:00 07:00 Intake Total 300 ml 250 ml 0 ml Output Total 350 ml Balance 300 ml 250 ml -350 ml medications Current Medications Medications Dose Ordered Sig/Erik Route Start Time Stop Time Status Last Admin Dose Admin Ondansetron HCl 4 mg Q4HP PRN IV 07/01/24 02:45 Piperacillin Sod/ Tazobactam Sod 100 ml @ 25 mls/hr Q12HR IV 07/01/24 10:00 07/04/24 09:51 25 MLS/HR Midodrine 10 mg TID@0600,1200,1800 PO 07/01/24 06:00 07/02/24 18:10 10 MG Octreotide Acetate 100 mcg TID SUBCUT 07/01/24 07:30 07/04/24 03:14 100 MCG Linezolid 300 ml @ 150 mls/hr Q12HR@0800,2000 IV 07/01/24 08:00 07/04/24 09:51 150 MLS/HR Lactulose 30 ml Q8HR PO 07/01/24 14:00 07/02/24 21:43 30 ML Lorazepam 1 mg Q5MINP PRN IV 07/02/24 07:15 07/03/24 12:11 1 MG Pantoprazole Sodium 50 ml @ 10 mls/hr Q5H IV 07/02/24 07:15 07/04/24 12:35 10 MLS/HR Thiamine HCl 100 mg DAILY PO 07/03/24 10:00 Folic Acid 1 mg DAILY PO 07/03/24 10:00 Bumetanide 1 mg BIDD IV 07/04/24 10:00 Haloperidol Lactate 5 mg Q8HP PRN IM 07/04/24 00:00 07/04/24 09:51 5 MG Albumin Human 100 ml @ 100 mls/hr Q8H IV 07/04/24 11:45 07/05/24 04:44 Examination: ABDOMEN:Abnormal, MSK:Abnormal, SKIN:Abnormal, NEURO:Abnormal laboratory and microbiology Laboratory Tests 07/04/24 14:21 07/03/24 06:23 Test 07/04/24 14:21 Range/Units Serum Glucose 113 H 74-106 mg/dL Microbiology Date/Time Source Procedure Growth Status 07/01/24 17:21 Voided Urine Urine Culture - Preliminary Resulted 07/01/24 08:53 Ascities Fluid Gram Stain - Final Resulted 07/01/24 08:53 Ascities Fluid Body Fluid Culture - Preliminary Resulted 06/30/24 21:52 Blood Blood Culture - Preliminary NO GROWTH AFTER 72 HOURS OF INCUBATION. Resulted Problem List/Assessment/Plan Problem List/Assessment/Plan Acute kidney injury----ATN in the setting of hypotension/ blood loss versus hepatorenal syndrome- -status post multiple blood transfusions Hepatic encephalopathy Decompensated liver cirrhosis status post paracentesis Alcoholism Recommendations no improvement in renal function, recommend renal replacement therapy however per radiologist /RN/sitter patient was very combative and non cooperative so dialysis catheter placement did not happen yesterday called and spoke with pt sister JALEESA Mathur in [place] -informed her pt is very agitated and HD cant be done in this situation and also hemodialysis is unsafe if patient is combative and also explained Pt overall prognosis is poor--she is considering hospice but not made final decision --informed her to have a family meeting and finalize goals of care Continue diuretics We will follow renal function Strict Is&Os charting Continue midodrine and octreotide Maintain map greater than 65 goals of care need to be addressed--hospice appropriate however family did not made final decision yet Plan discussed with: Other My Orders My Orders Orders - SHANE YANES MD Procedure Category Date Status Time Basic Metabolic Panel LAB 07/04/24 In Process 11:32 Basic Metabolic Panel LAB 07/05/24 Verified 05:00 Basic Metabolic Panel LAB 07/06/24 Verified 05:00 Basic Metabolic Panel LAB 07/07/24 Verified 05:00 Basic Metabolic Panel LAB 07/08/24 Verified 05:00 Basic Metabolic Panel LAB 07/09/24 Verified 05:00 Basic Metabolic Panel LAB 07/10/24 Verified 05:00 Basic Metabolic Panel LAB 07/11/24 Verified 05:00 Albumin 25% (Albutein) PHA 07/04/24 In Process 11:45 Insulin R 10units Iv PHA 07/04/24 Verified X One 15:30 Dextrose 50% 1amp=50ml PHA 07/04/24 Verified 15:30 Albuterol 20mg Medneb PHA 07/04/24 Verified X One 15:30 Sod Bicarb 50ml=1amp PHA 07/04/24 Verified 15:30 Lokelma 10gm Po X One PHA 07/04/24 Verified 15:30 Lokelma 10gm Po Tid X PHA 07/04/24 Verified 48hrs 22:00 Dietary Evaluation Review Comments: 1) Consider EN/PN if NPO>7 days 2) advance diet to renal specific 40gm if medically feasible 3) Continue current plan of care Expected Outcomes/Goals: Pt will meet >75% estimated needs Fu 2-3 days CC Plasma Assessment Blood Product Administration S: [id number] SHANE YANES MD Jul 04, 2024 15:31
[2024-07-04] MEDS: DEXTROSE (50%) 50ML SYRG IV ONE (17:32)
[2024-07-04] MEDS: BUMETANIDE 1mg/4ml VIAL (0.25mg/ml) IV SCH (18:00)
[2024-07-04] MEDS: SODIUM BICARB 8.4% 50Meq/50ml SYR INJ IV ONE (18:21)
[2024-07-04] MEDS: SODIUM CHLORIDE 0.9% 1,000 ML IV ONE (18:24)
[2024-07-04] MEDS: InsuLIN REG 1unit/0.01ml Soln (100units/ml) IV ONE (18:33)
[2024-07-04] MEDS: SODIUM ZIRCONIUM CYCL 10 GM PAK PO SCH (21:48)
[2024-07-05] VITALS (8 sets, daily range): BP systolic 96–145; BP diastolic 44–78; PULSE 95–104; RESP 16–22; TEMP 97.9–98.7; O2SAT 94–97
[2024-07-05 07:03] LABS: Anion Gap 16 (5-15); Carbon Dioxide 31 mmol/L (20-31); Potassium 4.5 mmol/L (3.5-5.1); Sodium 136 mmol/L (136-145)
[2024-07-05 07:04] LABS: Calcium 9.7 mg/dL (8.7-10.4)
[2024-07-05 07:05] LABS: Chloride 89 mmol/L (98-107)
[2024-07-05 07:09] LABS: Glucose 101 mg/dL (74-106)
[2024-07-05 07:13] LABS: Blood Urea Nitrogen 72 mg/dL (9-23)
[2024-07-05 07:20] LABS: BUN/Creatinine Ratio 11.4 (10.0-20.0)
[2024-07-05] MEDS: LORazepam 2MG/ML-1ML VIAL IM ONE (09:45)
[2024-07-05 14:46] LABS: Potassium 4.8 mmol/L (3.5-5.1); Sodium 137 mmol/L (136-145)
[2024-07-05 14:47] LABS: Anion Gap 15 (5-15); Calcium 9.8 mg/dL (8.7-10.4)
[2024-07-05 14:48] LABS: Basophils # (auto) 0.1 10 ^3/uL (0-0.2); Basophils % (auto) 0.6 % (0.0-2.0); Carbon Dioxide 32 mmol/L (20-31); Chloride 90 mmol/L (98-107); Eosinophils # (auto) 0 10 ^3/uL (0-0.8); Eosinophils % (auto) 0.3 % (0.0-7.0); Hematocrit 29.3 % (41.0-53.0); Hemoglobin 9.7 g/dL (13.5-17.5); Lymphocytes # (auto) 1.5 10 ^3/uL (0.4-5.4); Lymphocytes % (auto) 9.9 % (10.0-50.0); Mean Corpuscular Hemoglobin 31.2 pg (28.0-32.0); Mean Corpuscular Volume 94.6 fL (80.0-100.0); Monocytes # (auto) 1.3 10 ^3/uL (0-1.3); Monocytes % (auto) 9.1 % (0.0-12.0); Neutrophils # (auto) 11.8 10 ^3/uL (1.6-8.6); Neutrophils % (auto) 80.1 % (37.0-80.0); Nucleated Red Blood Cells % 0.1 %; Platelet Count (auto) 115 10^3/uL (140-450); Red Cell Distribution Width 16.6 % (11.8-14.3); White Blood Cell 14.7 10^3/uL (4.4-10.8)
[2024-07-05 14:58] LABS: Blood Urea Nitrogen 72 mg/dL (9-23); Glucose 134 mg/dL (74-106)
[2024-07-05 15:06] LABS: BUN/Creatinine Ratio 11.2 (10.0-20.0)
--- NOTE | 2024-07-05 15:31 | DVHPN2 ---
Subjective Patient remains altered. Currently on soft restraints. Patient's has a sitter at bedside. Changes from previous H/P or p: No Changes Objective Vitals Vital Signs Date Time Temp Pulse Resp B/P (MAP) Pulse Ox O2 Delivery O2 Flow Rate FiO2 07/05/24 13:00 97.9 102 16 100/44 (62) 96 97.9 07/05/24 08:00 Room Air* 0 21 Intake/Output Intake and Output 07/05/24 07:00 Intake Total 800 ml Output Total 300 ml Balance 500 ml Intake Oral 0 ml IV Total 800 ml Output Urine Total 300 ml Exam HEENT pupils are reactive positive scleral icterus Neck is supple CV is S1-S2 regular rate and rhythm Respiratory diminished breath sounds bases GI positive bowel sounds positive ascites Extremity trace edema 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 Medications Current Medications Medications Dose Ordered Sig/Erik Route Start Time Stop Time Status Last Admin Dose Admin Ondansetron HCl 4 mg Q4HP PRN IV 07/01/24 02:45 Piperacillin Sod/ Tazobactam Sod 100 ml @ 25 mls/hr Q12HR IV 07/01/24 10:00 07/05/24 11:44 25 MLS/HR Midodrine 10 mg TID@0600,1200,1800 PO 07/01/24 06:00 07/02/24 18:10 10 MG Octreotide Acetate 100 mcg TID SUBCUT 07/01/24 07:30 07/04/24 03:14 100 MCG Linezolid 300 ml @ 150 mls/hr Q12HR@0800,2000 IV 07/01/24 08:00 07/05/24 08:08 150 MLS/HR Lactulose 30 ml Q8HR PO 07/01/24 14:00 07/02/24 21:43 30 ML Lorazepam 1 mg Q5MINP PRN IV 07/02/24 07:15 07/03/24 12:11 1 MG Pantoprazole Sodium 50 ml @ 10 mls/hr Q5H IV 07/02/24 07:15 07/05/24 12:44 10 MLS/HR Thiamine HCl 100 mg DAILY PO 07/03/24 10:00 Folic Acid 1 mg DAILY PO 07/03/24 10:00 Bumetanide 1 mg BIDD IV 07/04/24 10:00 07/05/24 06:06 1 MG Haloperidol Lactate 5 mg Q8HP PRN IM 07/04/24 00:00 07/05/24 11:30 5 MG Zirconium Oxide 10 gm TID PO 07/04/24 22:00 07/06/24 14:01 Laboratory Results Laboratory Tests 07/05/24 14:10 Chemistry Test 07/05/24 06:13 07/05/24 14:10 Calcium Level 9.7 mg/dL (8.7-10.4) 9.8 mg/dL (8.7-10.4) Urinalysis Test 07/01/24 17:21 Urine Color [place] (Yellow) H Urine Clarity Ex.turbid (Clear) Urine pH 7.0 (5.0-9.0) Urine Specific [place] 1.014 (1.001-1.035) Urine Protein 1+ (Negative) H Urine Ketones Negative (Negative) Urine Blood 3+ /uL (Negative) H Urine Nitrite Negative (Negative) Urine Bilirubin 1+ (Negative) Urine Urobilinogen Normal mg/dL (Negative) Urine Leukocyte Esterase 3+ /uL (Negative) Urine RBC 172 /hpf (0 - 3) Urine WBC Clumps Present /hpf (None Seen) Urine Microscopic WBC 3958 /HPF (0-3) H Urine Squamous Epithelial Cells Few /hpf (<5) Urine Transitional Epithelial Cells Few /hpf (<2) Urine Bacteria Few /hpf (None Seen) H Urine Mucus Few (None Seen) Urine Creatinine 83.04 mg/dL (30.0-125.0) Urine Sodium 29 mmol/L (40-220) L Urine Glucose Normal mg/dL (Normal) Urine Total Protein 49.2 mg/dL (1-14) H Microbiology Microbiology Date/Time Source Procedure Growth Status 07/01/24 17:21 Voided Urine Urine Culture - Final Enterococcus faecium Complete 07/01/24 08:53 Ascities Fluid Gram Stain - Final Resulted 07/01/24 08:53 Ascities Fluid Body Fluid Culture - Preliminary Resulted 06/30/24 21:52 Blood Blood Culture - Preliminary NO GROWTH AFTER 72 HOURS OF INCUBATION. Resulted Assessment/Plan Assessment/Plan 53-year-old male with a known history of alcoholic liver cirrhosis, recurrent ascites initially presented to the hospital with altered mental status for one week found to have 1. Acute hepatic/metabolic encephalopathy 2. Decompensated liver cirrhosis 3. Massive ascites status post paracentesis 4. Acute kidney injury with oliguria suspect secondary to hypotension/hypovolemia/ hepatorenal syndrome 5. Acute on chronic anemia status post 2 units of packed RBC 6. Acute hypoxic respiratory failure secondary to massive ascites 7. Spontaneous bacterial peritonitis 8. Coagulopathy secondary to liver failure 9. Enterococcus UTI 10. Thrombocytopenia -continue current IV antibiotics, nephrology consultation for possible dialysis if indicated -patient overall has a very poor prognosis -no family member at bedside, continue octreotide, midodrine -we will follow up with the Nephrology, GI. -family was called yesterday but did not knot picker cloth phone. As per bedside RN they are coming today and they may consider hospice. Patient's inpatient monitor LT rate is very high because of decompensated liver cirrhosis with a liver failure as well as hepatorenal syndrome. Plan discussed with: Other My Orders Orders - JONNY MARROQUIN MD Procedure Category Date Status Time * Solution Consultant CONS 07/04/24 Transmitted Consult 15:32 Complete Blood Count LAB 07/05/24 In Process 13:10 Date of Service: Jul 05, 2024 Billing Provider: JONNY MARROQUIN MD Common Visit Codes: [id number] INP/OBS CARE(MOD) JONNY MARROQUIN MD Jul 05, 2024 15:31
[2024-07-05 15:34] LABS: Platelet Estimate Decreased
--- NOTE | 2024-07-05 15:45 | DVHPN2 ---
Progress Note Date Seen: Jul 05, 2024 Has the PT tested + for MRSA If YES, has PT been informed?: No Medical Necessity Reason Pt with a Central, PICC or Fol: Yes Subjective Patient reports: Other (altered) Review of Systems: Deferred Objective vital signs Vital Sign Date Time Temp Pulse Resp B/P (MAP) Pulse Ox O2 Delivery O2 Flow Rate FiO2 07/05/24 13:00 97.9 102 16 100/44 (62) 96 97.9 07/05/24 08:00 Room Air* 0 21 Total Intake and Output 07/04/24 07/04/24 07/05/24 15:00 23:00 07:00 Intake Total 400 ml 0 ml 400 ml Output Total 150 ml 150 ml Balance 400 ml -150 ml 250 ml medications Current Medications Medications Dose Ordered Sig/Erik Route Start Time Stop Time Status Last Admin Dose Admin Ondansetron HCl 4 mg Q4HP PRN IV 07/01/24 02:45 Piperacillin Sod/ Tazobactam Sod 100 ml @ 25 mls/hr Q12HR IV 07/01/24 10:00 07/05/24 11:44 25 MLS/HR Midodrine 10 mg TID@0600,1200,1800 PO 07/01/24 06:00 07/02/24 18:10 10 MG Octreotide Acetate 100 mcg TID SUBCUT 07/01/24 07:30 07/04/24 03:14 100 MCG Linezolid 300 ml @ 150 mls/hr Q12HR@0800,2000 IV 07/01/24 08:00 07/05/24 08:08 150 MLS/HR Lactulose 30 ml Q8HR PO 07/01/24 14:00 07/02/24 21:43 30 ML Lorazepam 1 mg Q5MINP PRN IV 07/02/24 07:15 07/03/24 12:11 1 MG Pantoprazole Sodium 50 ml @ 10 mls/hr Q5H IV 07/02/24 07:15 07/05/24 12:44 10 MLS/HR Thiamine HCl 100 mg DAILY PO 07/03/24 10:00 Folic Acid 1 mg DAILY PO 07/03/24 10:00 Bumetanide 1 mg BIDD IV 07/04/24 10:00 07/05/24 06:06 1 MG Haloperidol Lactate 5 mg Q8HP PRN IM 07/04/24 00:00 07/05/24 11:30 5 MG Zirconium Oxide 10 gm TID PO 07/04/24 22:00 07/06/24 14:01 Examination: GENERAL:Abnormal, LUNGS:Abnormal, MSK:Abnormal, NEURO:Abnormal laboratory and microbiology Laboratory Tests 07/05/24 14:10 Test 07/05/24 14:10 Range/Units Serum Glucose 134 H 74-106 mg/dL Microbiology Date/Time Source Procedure Growth Status 07/01/24 17:21 Voided Urine Urine Culture - Final Enterococcus faecium Complete 07/01/24 08:53 Ascities Fluid Gram Stain - Final Resulted 07/01/24 08:53 Ascities Fluid Body Fluid Culture - Preliminary Resulted 06/30/24 21:52 Blood Blood Culture - Preliminary NO GROWTH AFTER 72 HOURS OF INCUBATION. Resulted Problem List/Assessment/Plan Problem List/Assessment/Plan Acute kidney injury----ATN in the setting of hypotension/ blood loss versus hepatorenal syndrome- -status post multiple blood transfusions Hepatic encephalopathy Decompensated liver cirrhosis status post paracentesis Alcoholism Recommendations no improvement in renal function, recommend renal replacement therapy however patient was very combative and non cooperative so dialysis catheter placement did not happen--pt refusing and combative called and spoke with pt sister JALEESA Mathur in [place] -informed her pt is very agitated and HD cant be done in this situation and also hemodialysis is unsafe if patient is combative and also explained Pt overall prognosis is poor--she is considering hospice but not made final decision --informed her to have a family meeting and finalize goals of care Continue diuretics We will follow renal function Strict Is&Os charting Continue midodrine and octreotide Maintain map greater than 65 goals of care need to be addressed--hospice appropriate however family did not made final decision yet d/w hospitalist/rn bedside Plan discussed with: Other Dietary Evaluation Review Comments: 1) Consider EN/PN if NPO>7 days 2) advance diet to renal specific 40gm if medically feasible 3) Continue current plan of care Expected Outcomes/Goals: Pt will meet >75% estimated needs Fu 2-3 days CC Plasma Assessment Blood Product Administration S: [id number] SHANE YANES MD Jul 05, 2024 15:45
[2024-07-06] VITALS (10 sets, daily range): BP systolic 104–116; BP diastolic 44–63; PULSE 98–104; RESP 18–20; TEMP 98.1–98.7; O2SAT 92–100
[2024-07-06 07:01] LABS: Anion Gap 24 (5-15); Calcium 10.4 mg/dL (8.7-10.4); Carbon Dioxide 25 mmol/L (20-31); Sodium 138 mmol/L (136-145)
[2024-07-06 07:41] LABS: BUN/Creatinine Ratio 11.8 (10.0-20.0)
[2024-07-06 07:42] LABS: Chloride 89 mmol/L (98-107); Glucose 109 mg/dL (74-106)
[2024-07-06 07:44] LABS: Blood Urea Nitrogen 84 mg/dL (9-23); Potassium 5.8 mmol/L (3.5-5.1)
[2024-07-06 07:49] LABS: Basophils # (auto) 0.1 10 ^3/uL (0-0.2); Basophils % (auto) 0.6 % (0.0-2.0); Eosinophils # (auto) 0 10 ^3/uL (0-0.8); Eosinophils % (auto) 0.2 % (0.0-7.0); Hemoglobin 9.5 g/dL (13.5-17.5); Lymphocytes # (auto) 2.4 10 ^3/uL (0.4-5.4); Mean Corpuscular Hemoglobin 31.6 pg (28.0-32.0); Mean Corpuscular Hgb Conc. 32.8 g/dL (32.0-36.0); Mean Corpuscular Volume 96.2 fL (80.0-100.0); Monocytes # (auto) 1.5 10 ^3/uL (0-1.3); Monocytes % (auto) 8.3 % (0.0-12.0); Neutrophils # (auto) 14.2 10 ^3/uL (1.6-8.6); Neutrophils % (auto) 77.9 % (37.0-80.0); Platelet Count (auto) 108 10^3/uL (140-450); Red Blood Cells 3.01 10^6/uL (4.5-5.90); Red Cell Distribution Width 16.8 % (11.8-14.3); White Blood Cell 18.3 10^3/uL (4.4-10.8)
[2024-07-06] MEDS ORDERED: ALBUTEROL SULF 2.5 MG/0.5ML(0.5%) NEB SOLN NEB ONE (08:00)
[2024-07-06 08:13] LABS: Anisocytosis Slight; Platelet Estimate Decreased
[2024-07-06 08:35] LABS: Albumin 3.2 g/dL (3.2-4.8)
[2024-07-06 08:37] LABS: Bilirubin, Total 20.4 mg/dL (0.2-1.0); Total Protein 6.3 g/dL (5.7-8.2)
[2024-07-06 08:54] LABS: Bilirubin, Direct 12.4 mg/dL (<0.3)
[2024-07-06] MEDS: DEXTROSE (50%) 50ML SYRG IV ONE ×3 (09:02→16:42)
[2024-07-06] MEDS: SODIUM BICARB 8.4% 50Meq/50ml SYR INJ IV ONE ×3 (09:07→16:42)
[2024-07-06] MEDS: SODIUM ZIRCONIUM CYCL 10 GM PAK PO ONE ×2 (09:08→10:44)
[2024-07-06] MEDS: InsuLIN REG 1unit/0.01ml Soln (100units/ml) IV ONE ×3 (09:41→16:54)
[2024-07-06] MEDS: FUROSEMIDE 20 MG/2 ML VIAL IV ONE (10:30)
[2024-07-06] MEDS: ALBUTEROL SULF 2.5 MG/0.5ML(0.5%) NEB SOLN NEB ONE ×2 (10:42→16:48)
[2024-07-06] MEDS: CALCIUM GLUC 1,000mg/50ml-NS 50 ML IV ONE ×2 (10:43→10:45)
--- NOTE | 2024-07-06 12:36 | DVHPN2 ---
Progress Note Date Seen: Jul 06, 2024 Has the PT tested + for MRSA If YES, has PT been informed?: No Medical Necessity Reason Pt with a Central, PICC or Fol: Yes Subjective Review of Systems: NEURO:Abnormal Other Systems: Patient seen and examined by myself today in follow-up Objective vital signs Vital Sign Date Time Temp Pulse Resp B/P (MAP) Pulse Ox O2 Delivery O2 Flow Rate FiO2 07/06/24 10:57 104 20 100 07/06/24 10:42 Room Air 0.0 07/06/24 10:42 21 07/06/24 06:03 104/63 07/06/24 05:00 98.1 98.1 Total Intake and Output 07/05/24 07/05/24 07/06/24 15:00 23:00 07:00 Intake Total 300 ml 400 ml 100 ml Balance 300 ml 400 ml 100 ml medications Current Medications Medications Dose Ordered Sig/Erik Route Start Time Stop Time Status Last Admin Dose Admin Ondansetron HCl 4 mg Q4HP PRN IV 07/01/24 02:45 Piperacillin Sod/ Tazobactam Sod 100 ml @ 25 mls/hr Q12HR IV 07/01/24 10:00 07/06/24 09:08 25 MLS/HR Midodrine 10 mg TID@0600,1200,1800 PO 07/01/24 06:00 07/02/24 18:10 10 MG Octreotide Acetate 100 mcg TID SUBCUT 07/01/24 07:30 07/06/24 06:02 100 MCG Linezolid 300 ml @ 150 mls/hr Q12HR@0800,2000 IV 07/01/24 08:00 07/06/24 09:08 150 MLS/HR Lactulose 30 ml Q8HR PO 07/01/24 14:00 07/02/24 21:43 30 ML Lorazepam 1 mg Q5MINP PRN IV 07/02/24 07:15 07/03/24 12:11 1 MG Pantoprazole Sodium 50 ml @ 10 mls/hr Q5H IV 07/02/24 07:15 07/06/24 01:40 10 MLS/HR Thiamine HCl 100 mg DAILY PO 07/03/24 10:00 Folic Acid 1 mg DAILY PO 07/03/24 10:00 Bumetanide 1 mg BIDD IV 07/04/24 10:00 07/06/24 06:03 1 MG Haloperidol Lactate 5 mg Q8HP PRN IM 07/04/24 00:00 07/05/24 22:48 5 MG Zirconium Oxide 10 gm TID PO 07/04/24 22:00 07/06/24 14:01 Examination: LUNGS:Normal, CVS:Normal, MSK:Normal laboratory and microbiology Laboratory Tests 07/06/24 05:02 Test 07/06/24 05:02 Range/Units Serum Glucose 109 H 74-106 mg/dL Microbiology Date/Time Source Procedure Growth Status 07/01/24 17:21 Voided Urine Urine Culture - Final Enterococcus faecium Complete 07/01/24 08:53 Ascities Fluid Gram Stain - Final Complete 07/01/24 08:53 Ascities Fluid Body Fluid Culture - Final Complete 06/30/24 21:52 Blood Blood Culture - Final NO GROWTH AFTER 5 DAYS OF INCUBATION. Complete Problem List/Assessment/Plan Problem List/Assessment/Plan Acute kidney injury----ATN in the setting of hypotension/ blood loss versus hepatorenal syndrome- -status post multiple blood transfusions Hepatic encephalopathy Decompensated liver cirrhosis status post paracentesis Alcoholism Recommendations no improvement in renal function, recommend renal replacement therapy however patient was very combative and non cooperative so dialysis catheter placement did not happen--pt refusing and combative called and spoke with pt sister JALEESA Mathur in [place] -informed her pt is very agitated and HD cant be done in this situation and also hemodialysis is unsafe if patient is combative and also explained Pt overall prognosis is poor--she is considering hospice but not made final decision --informed her to have a family meeting and finalize goals of care Continue diuretics We will follow renal function Strict Is&Os charting Continue midodrine and octreotide Maintain map greater than 65 goals of care need to be addressed--hospice appropriate however family did not made final decision yet d/w hospitalist @ [facility] Plan discussed with: Patient Dietary Evaluation Review Comments: 1) Consider EN/PN if NPO>7 days 2) advance diet to renal specific 40gm if medically feasible 3) Continue current plan of care Expected Outcomes/Goals: Pt will meet >75% estimated needs Fu 2-3 days CC Plasma Assessment Blood Product Administration S: [id number] CHARLIE HALE MD Jul 06, 2024 12:36
--- NOTE | 2024-07-06 14:07 | DVHPNRES ---
Progress Note Date Seen: Jul 06, 2024 Resident Creating Document: AUDRA CRANDALL RESIDENT Has the PT tested + for MRSA If YES, has PT been informed?: No Medical Necessity Reason Pt with a Central, PICC or Fol: Yes Subjective Review of Systems A 53-year-old male with past medical history of liver cirrhosis (due to alcohol use disorder)and CKD brought to the hospital due to altered mental status. Family were called, but the didnt answer, all the info was taken to the medical records Per EMS reports patient was taken from home and per family member he has been altered since 1 week which has progressively worsened. He was admitted on 10/31/2020 and DVT H due to GI bleeding, EGD was performed, showed gastritis with no active bleeding. PMHx: Liver cirrhosis due to alcohol use disorder, CKD Social history: Has history of alcohol use disorder 07/01/2024: paracentesis done 7LT, multiple wbc in the ascitic fluid, labile BPs, midodrine and octeotride started, zosyn and linezolid due to sepsis and possible SBP, start levophed if MAP below 60, fluids were given, protonix BID 07/02/2024: renal function is declining, hb is stable, FOB neg, protonix drip started, bumex drip started 07/06/2024: urine culture positive for VRE, patient is on zosyn and linezolid, hyperkalemia 5.8 Poor prognosis of the patient, discussing the case with the sister, JALEESA of the patient, the situation was extensively explained at bedside, the mental status of the patient is not suitable for the insertion of HD catheter, patient will need intubation for that procedure, the probability of extubation are very low due to severe organ disfunction, hospice was considered, SW is consulted for further information to the family Objective vital signs Vital Sign Date Time Temp Pulse Resp B/P (MAP) Pulse Ox O2 Delivery O2 Flow Rate FiO2 07/06/24 10:57 104 20 100 07/06/24 10:42 Room Air 0.0 07/06/24 10:42 21 07/06/24 06:03 104/63 07/06/24 05:00 98.1 98.1 Total Intake and Output 07/05/24 07/05/24 07/06/24 15:00 23:00 07:00 Intake Total 300 ml 400 ml 100 ml Balance 300 ml 400 ml 100 ml medications Current Medications Medications Dose Ordered Sig/Erik Route Start Time Stop Time Status Last Admin Dose Admin Ondansetron HCl 4 mg Q4HP PRN IV 07/01/24 02:45 Piperacillin Sod/ Tazobactam Sod 100 ml @ 25 mls/hr Q12HR IV 07/01/24 10:00 07/06/24 09:08 25 MLS/HR Midodrine 10 mg TID@0600,1200,1800 PO 07/01/24 06:00 07/02/24 18:10 10 MG Octreotide Acetate 100 mcg TID SUBCUT 07/01/24 07:30 07/06/24 06:02 100 MCG Linezolid 300 ml @ 150 mls/hr Q12HR@0800,2000 IV 07/01/24 08:00 07/06/24 09:08 150 MLS/HR Lactulose 30 ml Q8HR PO 07/01/24 14:00 07/02/24 21:43 30 ML Lorazepam 1 mg Q5MINP PRN IV 07/02/24 07:15 07/03/24 12:11 1 MG Pantoprazole Sodium 50 ml @ 10 mls/hr Q5H IV 07/02/24 07:15 07/06/24 13:41 10 MLS/HR Thiamine HCl 100 mg DAILY PO 07/03/24 10:00 Folic Acid 1 mg DAILY PO 07/03/24 10:00 Bumetanide 1 mg BIDD IV 07/04/24 10:00 07/06/24 06:03 1 MG Haloperidol Lactate 5 mg Q8HP PRN IM 07/04/24 00:00 07/05/24 22:48 5 MG Examination General Appearance: Lethargic, oriented to person, disoriented to time and place. HEENT: Atraumatic, PERRLA, EOMI, Mucous membrane moist/pink Respiratory: Clear to auscultation, Normal air movement Cardiovascular: Regular rate, Normal S1, Normal S2, No murmurs, no chest wall tenderness Abdominal: less distension after paracentesis, puncture without bleeding Extremities: No clubbing, No cyanosis, No edema, Normal pulses, No tenderness/swelling Skin: Generalized yellow discoloration of skin, petechial/purpuric lesion and upper limb laboratory and microbiology Laboratory Tests 07/06/24 05:02 Test 07/06/24 05:02 Range/Units Serum Glucose 109 H 74-106 mg/dL Microbiology Date/Time Source Procedure Growth Status 07/01/24 17:21 Voided Urine Urine Culture - Final Enterococcus faecium Complete 07/01/24 08:53 Ascities Fluid Gram Stain - Final Complete 07/01/24 08:53 Ascities Fluid Body Fluid Culture - Final Complete 06/30/24 21:52 Blood Blood Culture - Final NO GROWTH AFTER 5 DAYS OF INCUBATION. Complete Problem List/Assessment/Plan Problem List/Assessment/Plan Acute metabolic encephalopathy, likely due to decompensated liver cirrhosis Hepatic failure/Liver cirrhosis, due to alcohol use disorder Massive ascites, likely due to liver cirrhosis Acute hypoxic respiratory failure, likely due to massive ascites Alcohol use disorder Severe anemia, likely due to GI bleeding Possible GI bleeding, unspecified location Possible colitis Pleural effusion, likely due to massive ascites Spontaneous bacterial peritonitis Sepsis, likely due to SBP and UTI UTI due to VRE Acquired coagulopathy, likely due to liver failure Acute kidney injury----ATN in the setting of hypotension/ blood loss versus hepatorenal syndrome Severe malnutrition Complicated UTI CT scan shows small bilateral pleural effusion, liver cirrhosis with large abdominopelvic ascites, colonic thickening with pericolonic fat stranding,? colitis Consulted GI 3rbc given Paracentesis: 7Lt pulled out: high wbc in the ascitic fluid Blood, urine culture Empiric antibiotic Zosyn and linezolid Oxygen through nasal cannula IV albumin Trend ammonia Lactulose 30 mg TID Albumin given Bumex IV If MAP below 60, please start levophed Ho catheter Poor prognosis of the patient, discussing the case with the sister, JALEESA of the patient, the situation was extensively explained at bedside, the mental status of the patient is not suitable for the insertion of HD catheter, patient will need intubation for that procedure, the probability of extubation are very low due to severe organ disfunction, hospice was considered, SW is consulted for further information to the family DIET: NPO except medicines DVT PROPHYLAXIS: No anticoagulant indicated, due to possible bleeding/severe anemia GI PROPHYLAXIS:: Protonix BOWEL REGIMEN: Lactulose DISPOSITION: Telemetry Case discussed with Dr. Jaydon Riddle discussed with: Patient, Other (rn) My Orders My Orders Orders - AUDRA CRANDALL Procedure Category Date Status Time Electrocardigram EKG 07/06/24 Logged 11:31 Npo (Nothing By DIET 07/06/24 Transmitted Mouth) Diet Lunch * Chlorine Cell Tender CONS 07/06/24 Transmitted Consult Comprehensive LAB 07/06/24 Logged Metabolic Panel 14:02 Dietary Evaluation Review Comments: 1) Consider EN/PN if NPO>7 days 2) advance diet to renal specific 40gm if medically feasible 3) Continue current plan of care Expected Outcomes/Goals: Pt will meet >75% estimated needs Fu 2-3 days CC Plasma Assessment Blood Product Administration S: [id number] Date of Service: Jul 06, 2024 Billing Provider: ASHLEY GALAN MD Common Visit Codes: [id number] INP/OBS CARE(HIGH) AUDRA CRANDALL RESIDENT Jul 06, 2024 14:06 ASHLEY GALAN MD Jul 14, 2024 21:10
[2024-07-06 15:39] LABS: Alkaline Phosphatase 81 U/L (46-116); Anion Gap 22 (5-15); Calcium 10.3 mg/dL (8.7-10.4); Carbon Dioxide 26 mmol/L (20-31); Sodium 139 mmol/L (136-145)
[2024-07-06 15:40] LABS: Albumin 3.1 g/dL (3.2-4.8); Chloride 91 mmol/L (98-107); Glucose 126 mg/dL (74-106); Potassium 5.2 mmol/L (3.5-5.1)
[2024-07-06 15:42] LABS: Alanine Aminotransferase 28 U/L (7-40); Aspartate Aminotransferase 99 U/L (13-40); BUN/Creatinine Ratio 12.3 (10.0-20.0); Blood Urea Nitrogen 88 mg/dL (9-23); Total Protein 6.1 g/dL (5.7-8.2)
--- NOTE | 2024-07-06 22:09 | DVHPN2 ---
Progress Note - Dictate Date Seen: Jul 06, 2024 Has the PT tested + for MRSA If YES, has PT been informed?: No Medical Necessity Reason Pt with a Central, PICC or Fol: Yes Subjective Patient continues to be altered and keeps saying no S/P paracentesis with removal of 7 L of fluid Fluid cell count high suggestive of spontaneous bacterial peritonitis Patient has been started on IV antibiotics Patient received 3 units PRBC and his hemoglobin is stable at 9.5 I believe the colonic wall stranding is likely related to colonic wall edema from fluid overload and ascites There was no diarrhea or rectal bleeding at this time vital signs Vital Sign Date Time Temp Pulse Resp B/P (MAP) Pulse Ox O2 Delivery O2 Flow Rate FiO2 07/06/24 21:00 98.2 99 18 116/44 (68) 93 98.2 07/06/24 16:48 Room Air* 0 21 Total Intake and Output 07/05/24 07/05/24 07/06/24 15:00 23:00 07:00 Intake Total 300 ml 400 ml 100 ml Balance 300 ml 400 ml 100 ml medications Current Medications Medications Dose Ordered Sig/Erik Route Start Time Stop Time Status Last Admin Dose Admin Ondansetron HCl 4 mg Q4HP PRN IV 07/01/24 02:45 Piperacillin Sod/ Tazobactam Sod 100 ml @ 25 mls/hr Q12HR IV 07/01/24 10:00 07/06/24 21:30 25 MLS/HR Midodrine 10 mg TID@0600,1200,1800 PO 07/01/24 06:00 07/06/24 17:14 10 MG Octreotide Acetate 100 mcg TID SUBCUT 07/01/24 07:30 07/06/24 21:31 100 MCG Linezolid 300 ml @ 150 mls/hr Q12HR@0800,2000 IV 07/01/24 08:00 07/06/24 19:51 150 MLS/HR Lactulose 30 ml Q8HR PO 07/01/24 14:00 07/06/24 21:30 30 ML Lorazepam 1 mg Q5MINP PRN IV 07/02/24 07:15 07/03/24 12:11 1 MG Pantoprazole Sodium 50 ml @ 10 mls/hr Q5H IV 07/02/24 07:15 07/06/24 21:30 10 MLS/HR Thiamine HCl 100 mg DAILY PO 07/03/24 10:00 Folic Acid 1 mg DAILY PO 07/03/24 10:00 Bumetanide 1 mg BIDD IV 07/04/24 10:00 07/06/24 17:14 1 MG Haloperidol Lactate 5 mg Q8HP PRN IM 07/04/24 00:00 07/05/24 22:48 5 MG objective General: altered; scleral icterus Chest: lung thompson clear to auscultation Heart: RRR, no murmur Abdomen: Swuz-sr-ilidxwao-distended, no tenderness to palpation, +BS Skin: +jaundice, multiple bruises laboratory and microbiology Laboratory Tests 07/06/24 14:53 07/06/24 05:02 Test 07/06/24 14:53 Range/Units Serum Glucose 126 H 74-106 mg/dL Problems(with codes): (1) Icterus (2) Acute liver failure (3) Alcohol intoxication (4) Serratia marcescens infection (5) MSSA (methicillin susceptible Staphylococcus aureus) pneumonia (6) Hepatorenal failure (7) Altered mental status Prognosis PLAN Patient is critically ill with hepatorenal syndrome His MELD score is 35 points which is suggestive of of 52.6% three-month mortality His Maddrey discrimination function is 43.7 suggestive of poor prognosis ; may need steroids Continue IV antibiotics for SBP Patient also has underlying evidence of UTI and possible urosepsis which may be the source Lactulose 30 mL p.o. twice a day for hepatic encephalopathy Thiamine and folic acid IV PPI Continue to monitor labs Prognosis remains guarded I will follow up patient with you closely Possible repeat paracentesis Dietary Evaluation Review Comments: 1) Consider EN/PN if NPO>7 days 2) advance diet to renal specific 40gm if medically feasible 3) Continue current plan of care Expected Outcomes/Goals: Pt will meet >75% estimated needs Fu 2-3 days Plan discussed with: Other (None) CC Plasma Assessment Blood Product Administration S: [id number] SHANTAL BILLS MD Jul 06, 2024 22:09
[2024-07-07] VITALS (71 sets, daily range): BP systolic 88–191; BP diastolic 31–56; PULSE 95–125; RESP 16–31; TEMP 97.6–98.9; O2SAT 95–100
[2024-07-07] MEDS: ALBUMIN 25% 50 ML IV ONE (06:59)
[2024-07-07] MEDS: LACTATED RINGER'S 250 ML IV ONE (07:00)
[2024-07-07] MEDS: SODIUM CHLORIDE 0.9% 1,000 ML IV ONE (08:45)
[2024-07-07] MEDS: ETOMIDATE (2MG/ML) 20ML VIAL IV ONE ×2 (09:02→09:15)
[2024-07-07 09:03] LABS: Base Excess -8.5 mmol/L (-2.0-3.0)
[2024-07-07] MEDS: ROCURONIUM 10MG/ML 10ML VIAL IV STA (09:03)
[2024-07-07] MEDS: ROCURONIUM 10MG/ML 10ML VIAL IV ONE (09:03)
[2024-07-07] MEDS: NOREPINEPHRINE 8 MG/250ML KIT 250 ML IV ONE (09:05)
[2024-07-07] MEDS: PHENYLEPHRINE IV 250 ML IV ONE (09:27)
[2024-07-07] MEDS: fentaNYL Drip 2500mCg/250mlNS 250 ML IV ONE (09:27)
[2024-07-07] MEDS: VASOPRESSIN 20 UNIT/ML ONE (09:27)
[2024-07-07] MEDS: PHENYLEPHRINE IV 250 ML IV SCH (09:30)
[2024-07-07 09:36] LABS: Basophils # (auto) 0.1 10 ^3/uL (0-0.2); Eosinophils # (auto) 0 10 ^3/uL (0-0.8); Hemoglobin 8.2 g/dL (13.5-17.5); Nucleated Red Blood Cells % 0.1 %; Platelet Count (auto) 80 10^3/uL (140-450); Red Blood Cells 2.53 10^6/uL (4.5-5.90)
[2024-07-07 09:40] LABS: Basophils % (auto) 0.6 % (0.0-2.0); Hematocrit 25.6 % (41.0-53.0); Lymphocytes # (auto) 1.3 10 ^3/uL (0.4-5.4); Lymphocytes % (auto) 6.9 % (10.0-50.0); Mean Corpuscular Hemoglobin 32.4 pg (28.0-32.0); Mean Corpuscular Hgb Conc. 32.1 g/dL (32.0-36.0); Mean Corpuscular Volume 100.9 fL (80.0-100.0); Monocytes # (auto) 1.4 10 ^3/uL (0-1.3); Monocytes % (auto) 7.2 % (0.0-12.0); Neutrophils # (auto) 16.6 10 ^3/uL (1.6-8.6); Neutrophils % (auto) 85.3 % (37.0-80.0); Red Cell Distribution Width 17.5 % (11.8-14.3); White Blood Cell 19.5 10^3/uL (4.4-10.8)
[2024-07-07] MEDS ORDERED: ROCURONIUM 10MG/ML 10ML VIAL IV PRN (09:45)
[2024-07-07 09:47] LABS: Alkaline Phosphatase 73 U/L (46-116); Anion Gap 31 (5-15); Glucose 89 mg/dL (74-106); Sodium 138 mmol/L (136-145)
[2024-07-07 09:53] LABS: BUN/Creatinine Ratio 11.5 (10.0-20.0)
[2024-07-07 09:54] LABS: Alanine Aminotransferase 60 U/L (7-40); Aspartate Aminotransferase 263 U/L (13-40); Bilirubin, Total 23.5 mg/dL (0.2-1.0); Calcium 10.6 mg/dL (8.7-10.4); Carbon Dioxide 16 mmol/L (20-31); Chloride 91 mmol/L (98-107)
--- NOTE | 2024-07-07 09:54 | DVH ---
CHEST RADIOGRAPH Indication: STAT POST INTUBATION Technique: Single frontal view of the chest was obtained Comparison: XY CHEST PORTABLE on DOS: 06/30/24 FINDINGS: Lines and Tubes: The endotracheal tube terminates 3.5 cm above the smi. Lungs: Bibasilar opacities. Pleura: No effusion. No pneumothorax. Cardiomediastinal contours: Unremarkable Bones: No acute osseous abnormality. IMPRESSION: Bibasilar opacities which may reflect atelectasis or pneumonia.
[2024-07-07 09:56] LABS: Blood Urea Nitrogen 88 mg/dL (9-23); Potassium 6.3 mmol/L (3.5-5.1)
[2024-07-07 09:58] LABS: Macrocytosis Slight; Platelet Estimate Decreased
[2024-07-07] MEDS: CALCIUM GLUC 1,000mg/50ml-NS 100 ML IV ONE (10:09)
[2024-07-07] MEDS: fentaNYL Drip 2500mCg/250mlNS 250 ML IV SCH (10:10)
[2024-07-07] MEDS: DEXTROSE 50% SYRINGE 100 ML IV ONE (10:10)
[2024-07-07] MEDS ORDERED: CALCIUM GLUC 1,000mg/50ml-NS 50 ML IV ONE (10:15)
[2024-07-07] MEDS: CALCIUM GLUC 1,000mg/50ml-NS 50 ML IV SCH (10:20)
[2024-07-07] MEDS ORDERED: ALBUTEROL SULF 2.5 MG/0.5ML(0.5%) NEB SOLN NEB ONE (10:30)
[2024-07-07] MEDS: ALBUTEROL SULF 2.5 MG/0.5ML(0.5%) NEB SOLN NEB ONE (10:40)
--- NOTE | 2024-07-07 10:47 | DVHPNRES ---
Progress Note Date Seen: Jul 07, 2024 Resident Creating Document: AUDRA CRANDALL RESIDENT Has the PT tested + for MRSA If YES, has PT been informed?: No Medical Necessity Reason Pt with a Central, PICC or Fol: Yes Subjective Review of Systems A 53-year-old male with past medical history of liver cirrhosis (due to alcohol use disorder)and CKD brought to the hospital due to altered mental status. Family were called, but the didnt answer, all the info was taken to the medical records Per EMS reports patient was taken from home and per family member he has been altered since 1 week which has progressively worsened. He was admitted on 10/31/2020 and DVT H due to GI bleeding, EGD was performed, showed gastritis with no active bleeding. PMHx: Liver cirrhosis due to alcohol use disorder, CKD Social history: Has history of alcohol use disorder 07/01/2024: paracentesis done 7LT, multiple wbc in the ascitic fluid, labile BPs, midodrine and octeotride started, zosyn and linezolid due to sepsis and possible SBP, start levophed if MAP below 60, fluids were given, protonix BID 07/02/2024: renal function is declining, hb is stable, FOB neg, protonix drip started, bumex drip started 07/06/2024: urine culture positive for VRE, patient is on zosyn and linezolid, hyperkalemia 5.8 07/07/2024: At around 9 a.m., patient was found gasping for air with MAP of 53. Rapid response was called. Mental status deteriorated (GCS drop), requiring intubation. Central line and Jordan catheter were placed. Started on vasopressors: Levophed up to 30 mcg/min and Vasopressin 0.04 U/min. Emergent dialysis was initiated due to uremia and hyperkalemia (K 6.3, later improved to 4.1). ABG showed compensated respiratory status. Patient was found to be hypoglycemic (glucose 16) during event. He is now sedated on fentanyl drip. Labs showed Hgb 6.6likely due to GI bleed; received blood products, Vitamin K, and PPI drip. Prognosis remains poor, and case was re-discussed with family; full code until now Objective vital signs Vital Sign Date Time Temp Pulse Resp B/P (MAP) Pulse Ox O2 Delivery O2 Flow Rate FiO2 07/07/24 10:10 137/41 07/07/24 09:46 98.3 98.3 07/07/24 09:25 105 22 100 100 07/06/24 20:00 Room Air* 0 Total Intake and Output 07/06/24 07/06/24 07/07/24 15:00 23:00 07:00 Intake Total 450 ml 380 ml 100 ml Balance 450 ml 380 ml 100 ml medications Current Medications Medications Dose Ordered Sig/Erik Route Start Time Stop Time Status Last Admin Dose Admin Ondansetron HCl 4 mg Q4HP PRN IV 07/01/24 02:45 Piperacillin Sod/ Tazobactam Sod 100 ml @ 25 mls/hr Q12HR IV 07/01/24 10:00 07/06/24 21:30 25 MLS/HR Midodrine 10 mg TID@0600,1200,1800 PO 07/01/24 06:00 07/07/24 04:31 10 MG Octreotide Acetate 100 mcg TID SUBCUT 07/01/24 07:30 07/07/24 06:26 100 MCG Linezolid 300 ml @ 150 mls/hr Q12HR@0800,2000 IV 07/01/24 08:00 07/06/24 19:51 150 MLS/HR Lactulose 30 ml Q8HR PO 07/01/24 14:00 07/06/24 21:30 30 ML Lorazepam 1 mg Q5MINP PRN IV 07/02/24 07:15 07/03/24 12:11 1 MG Pantoprazole Sodium 50 ml @ 10 mls/hr Q5H IV 07/02/24 07:15 07/07/24 06:28 10 MLS/HR Thiamine HCl 100 mg DAILY PO 07/03/24 10:00 Folic Acid 1 mg DAILY PO 07/03/24 10:00 Bumetanide 1 mg BIDD IV 07/04/24 10:00 07/06/24 17:14 1 MG Haloperidol Lactate 5 mg Q8HP PRN IM 07/04/24 00:00 07/05/24 22:48 5 MG Rocuronium Alford 50 mg ONCE PRN IV 07/07/24 09:45 Norepinephrine Bitartrate 250 ml @ 3.75 mls/hr Q24H IV 07/07/24 09:30 Phenylephrine HCl 250 ml @ 30 mls/hr Q8H20M IV 07/07/24 09:30 Vasopressin 20 units/Sodium Chloride 100 ml @ 9 mls/hr Q11H7M IV 07/07/24 09:30 Fentanyl Citrate 250 ml @ 2.5 mls/hr Q24H IV 07/07/24 09:30 07/07/24 10:10 10 MLS/HR Calcium Gluconate/ Sodium Chloride 50 ml @ 100 mls/hr Q30M IV 07/07/24 10:15 07/07/24 11:14 Zirconium Oxide 10 gm TID PO 07/07/24 14:00 07/09/24 06:01 Hydrocortisone Sodium Succinate 50 mg Q6HR IV 07/07/24 12:00 UNV Meropenem 50 ml @ 17 mls/hr DAILY IV 07/08/24 10:00 UNV Examination General Appearance: intubated HEENT: pupils were dilatetd 6mm am, anisocoria, bleeding through the mouth Respiratory: left IJ cath right HD cath Clear to auscultation, Normal air movement Cardiovascular: Regular rate, Normal S1, Normal S2, No murmurs, no chest wall tenderness Abdominal: more distention today Extremities: No clubbing, No cyanosis, No edema, Normal pulses, Skin: Generalized yellow discoloration of skin, petechial/purpuric lesion and upper limb laboratory and microbiology Laboratory Tests 07/07/24 09:12 Test 07/07/24 09:12 Range/Units Serum Glucose 89 74-106 mg/dL Microbiology Date/Time Source Procedure Growth Status 07/01/24 17:21 Voided Urine Urine Culture - Final Enterococcus faecium Complete 07/01/24 08:53 Ascities Fluid Gram Stain - Final Complete 07/01/24 08:53 Ascities Fluid Body Fluid Culture - Final Complete 06/30/24 21:52 Blood Blood Culture - Final NO GROWTH AFTER 5 DAYS OF INCUBATION. Complete Problem List/Assessment/Plan Problem List/Assessment/Plan Neurology #Acute metabolic encephalopathy due to hepatic and uremic encephalopathy #GCS deterioration requiring intubation Initially altered, progressively declined. Gasping at 9 a.m. Rapid response called. GCS low, intubated. Currently sedated with fentanyl drip 300 mcg/hr. Neurology consulted: CT scan pending Cardiology #Shock, likely multifactorial septic, hypovolemic MAP dropped to 53 this morning. Started on vasopressors: Levophed titrated to 30 mcg/min Vasopressin at 0.04 U/min Central line placed. Trend lactate and MAP Pulmonary #Acute hypoxic respiratory failure requiring mechanical ventilation #Vent dependent, intubated Vent settings: PEEP 5, TV 450, RR 30, FiO2 50%. ABG: pH 7.38 / CO2 46 / O2 156. Continue ventilator support, monitor ABGs. Hematology #Severe anemia, likely due to GI bleeding Hgb trended down to 6.6, received FFP and PRBCs. Monitor daily CBC. Continue PPI drip. GI consulted, concern for possible esophageal varices. Infectious Disease #Septic shock, likely secondary to VRE UTI and spontaneous bacterial peritonitis Urine culture positive for VRE, blood culture no growth x5 days. On Zosyn + Linezolid. Continue dual coverage. #SBP Paracentesis: 7L removed, high WBC in ascitic fluid. Octreotide and antibiotics ongoing. GI/Hepatology #Liver cirrhosis secondary to alcohol use #Massive ascites #Possible esophageal varices #Upper GI bleed, unspecified location GI consulted. Octreotide drip, PPI drip, PRBCs transfused. Vitamin K administered. Continue octreotide, PPI. Trend Hgb. Monitor for rebleeding. Renal #CLIFFORD on CKD, likely multifactorial: uremia, hypotension, sepsis #Hyperkalemia #Uremic encephalopathy #Emergency dialysis CVV[facility] initiated Potassium was 6.3 in the morning; dropped to 4.1 post-dialysis. Jordan catheter placed. HD initiated for filtration only, no fluid removed. Bicarbonate 150 meq + d5w drip Endocrinology #Hypoglycemia Severe hypoglycemia at time of rapid response (glucose 16). Now stable. Monitor glucose q6h. d5w + bicarbonate 100 cc/h Nutrition #Severe malnutrition NPO. Consider early nutrition once hemodynamics stabilize. Code Status: full code Poor prognosis discussed with sister (POA). Lines/Support Intubated Central line A-line Jordan catheter Ho catheter On Levophed, Vasopressin Sedated with fentanyl drip Octreotide and PPI drips Prophylaxis and Orders DVT: No anticoagulation due to active bleeding GI: PPI drip (Protonix) Bowel: Lactulose Case discussed with Dr Galan Plan discussed with: Patient, Other (rn) My Orders My Orders Orders - AUDRA CRANDALL Procedure Category Date Status Time Electrocardigram EKG 07/06/24 Logged 11:31 Npo (Nothing By DIET 07/06/24 Transmitted Mouth) Diet Lunch * Cosmetic Sales Assistant CONS 07/06/24 Transmitted Consult Ammonia LAB 07/07/24 In Process 08:28 Abg W/ Co-Ox RT 07/07/24 Logged 08:28 Sodium Chloride 0.9% PHA 07/07/24 In Process 08:45 Norepinephrine 8 PHA 07/07/24 In Process Mg/250ml Kit 09:30 Phenylephrine Iv PHA 07/07/24 In Process (Phenylephrine/Ns) 09:30 Sodium Chl 0.9% PHA 07/07/24 In Process (So... W/Vasopressin 09:30 Fentanyl Drip PHA 07/07/24 In Process 2500mcg/250mlns 09:30 Rass Sedation Scale NILTON 07/07/24 In Process 09:21 Ventilator Orders RT 07/07/24 Transmitted 09:26 Respiratory Culture SHASTA 07/07/24 Logged W/ Gs 09:26 Abg W/ Co-Ox RT 07/07/24 Logged 10:30 Chest Portable XY 07/07/24 Resulted 09:18 PTPTT LAB 07/07/24 Logged 09:43 Ventilator Orders RT 07/07/24 Transmitted 10:09 Dietary Evaluation Review Comments: 1) Consider EN/PN if NPO>7 days 2) advance diet to renal specific 40gm if medically feasible 3) Continue current plan of care Expected Outcomes/Goals: Pt will meet >75% estimated needs Fu 2-3 days CC Plasma Assessment Blood Product Administration S: 0302 Date of Service: Jul 07, 2024 Billing Provider: ASHLEY GALAN MD Common Visit Codes: [id number] INP/OBS CARE(HIGH) AUDRA CRANDALL RESIDENT Jul 07, 2024 10:47 ASHLEY GALAN MD Jul 14, 2024 21:13
--- NOTE | 2024-07-07 10:50 | DVHNC2 ---
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 Indication: Hypotension Room prepared for procedure: Yes Community Health Education Coordinator performed hand hygien: Yes Maximal sterile barrier precau: Mask/Eye shield, Sterile gown, Cap Skin Preparation: Chlorhexidine gluconate Skin preparation completely dr: Yes Insertion site: Right, Internal jugular Central line catheter type: [id number]-[id number] dialysis Number of lumens: 3 Central line exchanged over a: No Antiseptic ointment applied to: Yes Post Assessment: Chest X-Ray Informed consent obtained: No Risks/benefits/alt described: No Intubation Indication: Altered Mental Status Prep: Preoxygenation Pretreated with: Sedation Medicated with: Other (rocuronium) Intubation Approach: Orotracheal Intubation size: cm (7.5) Informed consent obtained: No Risks/benefits/alt described: No Date of Service: Jul 07, 2024 Billing Provider: ASHLEY GALAN MD Common Visit Codes: PROCEDURE ONLY Secondary Visit Codes: [id number] CARE PLAN ADDL 30MIN Procedure Codes: [id number], [id number] NON-TUNNEL CV CATH AUDRA CRANDALL RESIDENT Jul 07, 2024 10:50 ASHLEY GALAN MD Jul 07, 2024 23:52
--- NOTE | 2024-07-07 10:50 | RESUS ---
CODE ASSIST ASSESSSMENT Initial Information Code Assist Date: Jul 07, 2024 Code Assist Time: 08:58 Location of Arrest: [facility] Room # 284B Provider Name DR GALAN, DR MARIE-RESIDENT Time Notified: :58 (DRS AT BEDSIDE) Time PMD returned call: 08:58 Crash Cart Opened and Supplies: Yes Comment: DR AND RESIDENTS AT BEDSIDE UPON RAPID RESPONSE Situation Staff concerned/worried, speci: SaO2 <90, Non-responsive, Change LOC, Failure to respond to Tx Situation comment: BP WITH MAP IN 50'S ON TELE FLOOR FLUID BOLUS GIVEN WITHOUT INREASE IN BP, RN ATTEMPTED TO CALL NEXT OF KIN WITHOUT ANSWER RN CALLED RAPID RESPONSE Background Background: HISTORY OF ALCHOHOLIC LIVER CIRRHOSIS ON HEMODIALYSIS, SEE EMR FOR CARE/TREATMENT DURING ADMISSION. Assessment Blood Pressure Systolic: 80 Blood Pressure Diastolic: 26 Respiratory Rate: 26 O2 Sat by Pulse Oximetry: 90 Bedside Blood Glucose: 16 Assessment comment: MOANS BUT UNABLE TO FOLLOW ANY COMMANDS, SEVERE JAUNDICE, HR 90'S. Recommendations/Interventions Procedures: Accu check, ABG, CXR Portable, CMP, CBC, Cardiac Monitoring, Inititate ACLS Protocol, Suctioned, Intubated, O2 Mask/NC Other Interventions D50% GIVEN FOR BLOOD SUGAR OF 16 AROUND 0905 WITH RECHECK OF 122 AT 0927. LEVOPHED STARTED AT 20 MCG/MIN AT 0913 PER ORDER, ETOMIDATE 20 MG IV GIVEN AT 0913 THEN ROCURONIUM 50MG GIVEN IV AT [address] MARIE ATTEMPTED INTUBATION X [address] COONEY ATTEMPTED AND INTUBATED AT 0917 WITH SIZE 8.0 24 AT LIP WITH POSITIVE COLOR CHANGE. NO OGT/NGT PER . EPINEPH RINE 1 MG X 2 GIVEN BY RESIDENT PRIOR TO INTUBATION WITH INCREASE OF BP TO 91/34 AND 110/37. LEVOPHED AT MAX RATE 30 MCG/MIN PER DR GALAN AT 0918 WITH BP 111/35. ALBUMIN ORDERED. CXR OBTAINED PRIOR TO TRANSFER TO ICU. Outcome Outcome: Transfer to ICU Follow up Report Follow up Report TRANSFERRED TO ICU 104 IN STABLE CONDITION BEING BAGGED BY RT ON [facility]OLL MONITOR AND EMERGENCY MED TRANSPORT BOX WITH LEVOPHED MAX RATE INFUSING WITH BP 111/35. Team Members Team Members DR GALAN, DR MARIE RESIDENT, DR COONEY, DR BONILLA RESIDENT, LENNY DIRECTOR CLINICAL OPERATIONS, KIRSTIE DUFFY ICU RESOURCE, ALONZO RN, RADHIKA RN, ALEXUS RT, HARRIETT RT, CHANDRA RN, JENNIFER RN, Lenny Branch RN Jul 07, 2024 10:50
[2024-07-07] MEDS: DEXTROSE (50%) 50ML SYRG IV ONE ×3 (10:51→12:50)
[2024-07-07] MEDS: InsuLIN REG 1unit/0.01ml Soln (100units/ml) IV ONE ×2 (11:10→13:03)
[2024-07-07 11:26] LABS: Base Excess -8.8 mmol/L (-2.0-3.0)
[2024-07-07] MEDS: VASOPRESSIN 20 UNITS in SODIUM CHL 0.9% 99 ML IV SCH ×2 (11:39→13:51)
--- NOTE | 2024-07-07 11:43 | DVH ---
EXAM: XY CHEST XRAY 1 VIEW Indication: central line Technique: Single frontal view of the chest was obtained Comparison: XY CHEST PORTABLE on DOS: 07/07/24, XY CHEST PORTABLE on DOS: 06/30/24, CHEST PORTABLE on DOS : 11/08/20, CHEST PORTABLE on DOS: 11/07/20, CHEST PORTABLE on DOS: 11/07/20 FINDINGS: Lines and Tubes: Endotracheal tube projects 4 cm above the sim. Left internal jugular central veno us catheter tip projects over superior vena cava. Lungs: Bibasilar opacities. Low lung volumes. Pleura: No effusion. No pneumothorax. Cardiomediastinal contours: Unremarkable Bones: No acute osseous abnormality. IMPRESSION: Left internal jugular central venous catheter tip projects over superior vena cava. Bibasilar opaciti es.
[2024-07-07] MEDS: HYDROCORTISONE SOD SUCC 100 MG/2ML INJ VIAL IV SCH (11:54)
[2024-07-07] MEDS: SODIUM BICARB 8.4% 50Meq/50ml SYR Vial IV ONE (11:54)
--- NOTE | 2024-07-07 11:54 | DVHPN2 ---
Progress Note Date Seen: Jul 07, 2024 Has the PT tested + for MRSA If YES, has PT been informed?: No Medical Necessity Reason Pt with a Central, PICC or Fol: Yes Subjective Review of Systems: RESPIRATORY:Abnormal Other Systems: Patient seen and examined by myself today in follow-up Patient intubated and transferred to the ICU on the ventilator Patient examined hemodialysis, blood pressure stable Objective vital signs Vital Sign Date Time Temp Pulse Resp B/P (MAP) Pulse Ox O2 Delivery O2 Flow Rate FiO2 07/07/24 11:46 125 30 119/36 (63) 100 60 07/07/24 10:50 07/06/24 20:00 Room Air* 0 Total Intake and Output 07/06/24 07/06/24 07/07/24 15:00 23:00 07:00 Intake Total 450 ml 380 ml 100 ml Balance 450 ml 380 ml 100 ml medications Current Medications Medications Dose Ordered Sig/Erik Route Start Time Stop Time Status Last Admin Dose Admin Ondansetron HCl 4 mg Q4HP PRN IV 07/01/24 02:45 Piperacillin Sod/ Tazobactam Sod 100 ml @ 25 mls/hr Q12HR IV 07/01/24 10:00 07/06/24 21:30 25 MLS/HR Midodrine 10 mg TID@0600,1200,1800 PO 07/01/24 06:00 07/07/24 04:31 10 MG Octreotide Acetate 100 mcg TID SUBCUT 07/01/24 07:30 07/07/24 06:26 100 MCG Linezolid 300 ml @ 150 mls/hr Q12HR@0800,2000 IV 07/01/24 08:00 07/06/24 19:51 150 MLS/HR Lorazepam 1 mg Q5MINP PRN IV 07/02/24 07:15 07/03/24 12:11 1 MG Thiamine HCl 100 mg DAILY PO 07/03/24 10:00 Bumetanide 1 mg BIDD IV 07/04/24 10:00 07/06/24 17:14 1 MG Haloperidol Lactate 5 mg Q8HP PRN IM 07/04/24 00:00 07/05/24 22:48 5 MG Rocuronium [place] 50 mg ONCE PRN IV 07/07/24 09:45 Norepinephrine Bitartrate 250 ml @ 3.75 mls/hr Q24H IV 07/07/24 09:30 Phenylephrine HCl 250 ml @ 30 mls/hr Q8H20M IV 07/07/24 09:30 Vasopressin 20 units/Sodium Chloride 100 ml @ 9 mls/hr Q11H7M IV 07/07/24 09:30 Fentanyl Citrate 250 ml @ 2.5 mls/hr Q24H IV 07/07/24 09:30 07/07/24 10:10 10 MLS/HR Zirconium Oxide 10 gm TID PO 07/07/24 14:00 07/09/24 06:01 Hydrocortisone Sodium Succinate 50 mg Q6HR IV 07/07/24 12:00 Meropenem 50 ml @ 17 mls/hr DAILY IV 07/08/24 10:00 Pantoprazole Sodium 40 mg BID IV 07/07/24 22:00 Examination: LUNGS:Normal, CVS:Normal, MSK:Normal laboratory and microbiology Laboratory Tests 07/07/24 09:12 Test 07/07/24 09:12 Range/Units Serum Glucose 89 74-106 mg/dL Microbiology Date/Time Source Procedure Growth Status 07/01/24 17:21 Voided Urine Urine Culture - Final Enterococcus faecium Complete 07/01/24 08:53 Ascities Fluid Gram Stain - Final Complete 07/01/24 08:53 Ascities Fluid Body Fluid Culture - Final Complete 06/30/24 21:52 Blood Blood Culture - Final NO GROWTH AFTER 5 DAYS OF INCUBATION. Complete Problem List/Assessment/Plan Problem List/Assessment/Plan Acute kidney injury----ATN in the setting of hypotension/ blood loss requiring initiation of intermittent hemodialysis Acute respiratory failure, patient intubated on ventilator GI bleeding Septic shock Lactic acidosis Hyperkalemia Hepatic encephalopathy Decompensated liver cirrhosis status post paracentesis Chronic alcoholism Hypoglycemia Recommendations Continue with UF 1-2 L as tolerated, use no heparin Epogen 33458 subQ with hemodialysis Albumin 25% p.r.n. hemodialysis Emergent medical treatment for hyperkalemia Consents for [place] catheter and hemodialysis Hemodialysis after catheter placement Ho catheter Strict I&Os IVF D10W at 30 cc/hour IV antibiotics IV pressor for blood pressure support Maintain map greater than 65 Packed red blood cell transfusion p.r.n. We will continue to follow Plan discussed with: Other (Nurse) My Orders My Orders Orders - CHARLIE HALE MD Procedure Category Date Status Time Obtain Consent For: ORDERS 07/07/24 Transmitted 10:25 Sodium Zirconium PHA 07/07/24 In Process Cyclosilicate 14:00 Dietary Evaluation Review Comments: 1) Consider EN/PN if NPO>7 days 2) advance diet to renal specific 40gm if medically feasible 3) Continue current plan of care Expected Outcomes/Goals: Pt will meet >75% estimated needs Fu 2-3 days CC Plasma Assessment Blood Product Administration S: [id number] CHARLIE HALE MD Jul 07, 2024 11:54
[2024-07-07] MEDS: SODIUM BICARB 8.4% 50Meq/50ml SYR INJ ONE (11:57)
[2024-07-07] MEDS: ALBUMIN 25% 100 ML IV ONE (11:58)
[2024-07-07] MEDS: SODIUM CHL 0.9% 1000 ML BAG XX ONE (12:00)
[2024-07-07] MEDS: MIDAZOLAM HCL 5 MG/ML-1ML VIAL IV ONE (12:15)
[2024-07-07 12:30] LABS: INR 2.85 (0.9-1.15); Partial Thromboplastin Time 56.7 SEC (24.5-34.5); Prothrombin Time 27.2 sec (9.3-11.8)
[2024-07-07] MEDS: HEPARIN 1,000 UNITS/ml 1ML VIAL IV ONE (12:30)
[2024-07-07] MEDS: FUROSEMIDE 20 MG/2 ML VIAL IV ONE (12:54)
[2024-07-07] MEDS: DEXTROSE 10% 1,000 ML IV ONE (13:00)
[2024-07-07] MEDS: NOREPINEPHRINE 8 MG/250ML KIT 250 ML IV SCH (13:51)
[2024-07-07] MEDS: SODIUM ZIRCONIUM CYCL 10 GM PAK PO SCH (14:00)
[2024-07-07 14:05] LABS: Base Excess -4.5 mmol/L (-2.0-3.0)
--- NOTE | 2024-07-07 14:12 | DVH ---
EXAM: XY CHEST XRAY 1 VIEW Indication: DIALYSIS CATHETER Technique: Single frontal view of the chest was obtained Comparison: XY CHEST XRAY 1 VIEW on DOS: 07/07/24, XY CHEST PORTABLE on DOS: 07/07/24, XY CHEST PORTABLE on DOS: 06/30/24, CHEST PORTABLE on DOS: 11/08/20, CHEST PORTABLE on DOS: 11/07/20 FINDINGS: Lines and Tubes: Endotracheal tube projects 4.9 cm above the sim. Right internal jugular central v enous catheter tip projects over superior vena cava. Left internal jugular central venous catheter ti p projects over superior vena cava. Lungs: Right basilar opacity Pleura: No effusion. No pneumothorax. Cardiomediastinal contours: Unremarkable Bones: No acute osseous abnormality. IMPRESSION: Right basilar opacity. Lines and tubes in appropriate position.
--- NOTE | 2024-07-07 14:22 | MEDREC ---
[facility] Intervention Section I [facility] Intervention: Duplication of therapy (PLEASE CONSIDER D/C ZOSYN - DUPLICATION WITH MEROPENEM) CHI DAVIS PHARMACIST Jul 07, 2024 14:22
--- NOTE | 2024-07-07 16:04 | DVHNC2 ---
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 Indication: Other (hemodialysis) Room prepared for procedure: Yes Aerospace Physiological Technician performed hand hygien: Yes Maximal sterile barrier precau: Mask/Eye shield, Sterile gown, Cap, Sterlie gloves, Large sterlie drape Skin Preparation: Chlorhexidine gluconate Insertion site: Right, Internal jugular Central line catheter type: Dialysis non-tunneled Number of lumens: 2 Antiseptic ointment applied to: Yes Post Assessment: Chest X-Ray, No Pneumothorax Coding Comment Comment Arterial line placement L radial artery Sterile field, max precaution Ultrasound guided Johnny test done Placement confirmed Date of Service: Jul 07, 2024 Billing Provider: ASHLEY GALAN MD Common Visit Codes: PROCEDURE ONLY Procedure Codes: 68168-LZNIIG NON-TUNNEL CV CATH, [id number] LINE ASHLEY GALAN MD Jul 07, 2024 16:04
[2024-07-07] MEDS ORDERED: ALBUMIN 25% 100 ML IV PRN (16:30)
[2024-07-07 17:22] LABS: Lactic Acid w/Reflex 6.9 mmol/L (0.4-2.0)
[2024-07-07] MEDS: PANTOPRAZOLE 40mg/50ML NS AE 50 ML IV SCH (18:00)
--- NOTE | 2024-07-07 18:47 | DVHPN2 ---
Progress Note - Dictate Date Seen: Jul 07, 2024 Has the PT tested + for MRSA If YES, has PT been informed?: No Medical Necessity Reason Pt with a Central, PICC or Fol: Yes Subjective Patient was found to be hypotensive this morning with a low map Rapid response was called and subsequently patient was intubated and transferred to ICU on a ventilator Some small amount of bleeding is reported around his mouth Patient has worsening coagulopathy S/P paracentesis with removal of 7 L of fluid Fluid cell count high suggestive of spontaneous bacterial peritonitis Patient has been started on IV antibiotics Patient received 3 units PRBC and his hemoglobin is stable at 9.5 I believe the colonic wall stranding is likely related to colonic wall edema from fluid overload and ascites There was no diarrhea or rectal bleeding at this time vital signs Vital Sign Date Time Temp Pulse Resp B/P (MAP) Pulse Ox O2 Delivery O2 Flow Rate FiO2 07/07/24 18:16 104 30 146/40 (75) 100 30 07/07/24 12:00 97.6 97.6 07/07/24 10:00 Mechanical Ventilator+ 0 Total Intake and Output 07/06/24 07/06/24 07/07/24 14:59 22:59 06:59 Intake Total 450 ml 380 ml 100 ml Balance 450 ml 380 ml 100 ml medications Current Medications Medications Dose Ordered Sig/Erik Route Start Time Stop Time Status Last Admin Dose Admin Ondansetron HCl 4 mg Q4HP PRN IV 07/01/24 02:45 Midodrine 10 mg TID@0600,1200,1800 PO 07/01/24 06:00 07/07/24 04:31 10 MG Linezolid 300 ml @ 150 mls/hr Q12HR@0800,2000 IV 07/01/24 08:00 07/06/24 19:51 150 MLS/HR Lorazepam 1 mg Q5MINP PRN IV 07/02/24 07:15 07/03/24 12:11 1 MG Thiamine HCl 100 mg DAILY PO 07/03/24 10:00 Bumetanide 1 mg BIDD IV 07/04/24 10:00 07/07/24 18:02 1 MG Haloperidol Lactate 5 mg Q8HP PRN IM 07/04/24 00:00 07/05/24 22:48 5 MG Rocuronium [place] 50 mg ONCE PRN IV 07/07/24 09:45 Norepinephrine Bitartrate 250 ml @ 3.75 mls/hr Q24H IV 07/07/24 09:30 07/07/24 13:51 30 MLS/HR Phenylephrine HCl 250 ml @ 30 mls/hr Q8H20M IV 07/07/24 09:30 Fentanyl Citrate 250 ml @ 2.5 mls/hr Q24H IV 07/07/24 09:30 07/07/24 18:06 30 MLS/HR Zirconium Oxide 10 gm TID PO 07/07/24 14:00 07/09/24 06:01 Hydrocortisone Sodium Succinate 50 mg Q6HR IV 07/07/24 12:00 07/07/24 18:02 50 MG Meropenem 50 ml @ 17 mls/hr DAILY IV 07/08/24 10:00 Vasopressin 20 units/Sodium Chloride 100 ml @ 9 mls/hr Q11H7M IV 07/07/24 12:30 07/07/24 13:51 12 MLS/HR Sodium Bicarbonate 150 ml/Dextrose 1,150 ml @ 100 mls/hr [id number] IV 07/07/24 15:30 Albumin Human 100 ml @ 100 mls/hr PRN PRN IV 07/07/24 16:30 07/09/24 17:29 Pantoprazole Sodium 50 ml @ 10 mls/hr Q5H IV 07/07/24 17:15 Octreotide Acetate 500 mcg/ Sodium Chloride 100 ml @ 10 mls/hr Q10H IV 07/07/24 17:15 objective General: intubated sedated; scleral icterus Chest: lung thompson clear to auscultation Heart: RRR, no murmur Abdomen: Dtuc-ew-[id number]-distended, no tenderness to palpation, +BS Skin: +jaundice, multiple bruises laboratory and microbiology Laboratory Tests 07/07/24 09:12 Test 07/07/24 09:12 Range/Units Serum Glucose 89 74-106 mg/dL Problems(with codes): (1) Icterus (2) Serratia marcescens infection (3) MSSA (methicillin susceptible Staphylococcus aureus) pneumonia (4) Hypotension (5) Acute liver failure (6) Alcohol intoxication (7) Hepatorenal failure (8) Anemia, chronic disease (9) Hepatic encephalopathy Prognosis Plan Protonix drip at 8 milligrams/hour Octreotide drip at 50 mics per hour Patient had hemodialysis catheter placed patient needs dialysis Patient also has lactic acidosis severe with a SBP Patient has been started on IV meropenem We will monitor serial H&H Transfused 1 unit FFP to correct coagulopathy Monitor labs; I will follow up ; prognosis remains guarded Patient is currently not stable for endoscopic workup and I recommend conservative management Dietary Evaluation Review Comments: 1) Consider EN/PN if NPO>7 days 2) advance diet to renal specific 40gm if medically feasible 3) Continue current plan of care Expected Outcomes/Goals: Pt will meet >75% estimated needs Fu 2-3 days Plan discussed with: Other (Dr Ovalle) CC Plasma Assessment Blood Product Administration S: [id number] SHANTAL BILLS MD Jul 07, 2024 18:47
[2024-07-07] MEDS: ALBUMIN 25% 200 ML IV ONE (19:24)
[2024-07-07] MEDS: SODIUM BICARB 50mEq/50ml Vial 150 ML in D5W 5% 1,000 ML IV SCH (20:06)
[2024-07-07] MEDS: OCTREOTIDE ACETATE 500 MCG in SODIUM CHL 0.9% 99 ML IV SCH (20:20)
--- NOTE | 2024-07-07 20:45 | DVHINCON2 ---
Date of service: Jul 07, 2024 Referring Physician Sara Ovalle MD Reason for Consultation Acute hypercarbic respiratory failure requiring mechanical ventilator. History of Present Illness A 53-year-old man with past medical history that includes alcoholic liver cirrhosis, prostate cancer, and chronic kidney disease who was brought in to ED on 07/01/24 due to altered mental status. History could not be obtained from the patient due to altered mental status, family unavailable. Per EMS, patient was taken from home and per family member, he has been altered since 1 week which has progressively worsened. Blood sugar on scene was 93, with a systolic blood pressure of 89. Of note, he was admitted on 10/31/2020 at [facility] due to GI bleeding; EGD was performed and showed gastritis with no active bleeding. Patient was admitted for further care, and pulmonary consultation is requested for evaluation and management of acute hypercarbic respiratory failure requiring mechanical ventilator. Review of Systems: Unable to be obtained d/t intubated status Past Medical History: Liver cirrhosis due to alcohol use disorder, chronic kidney disease, prostate cancer, alcoholism, anxiety. Past Surgical History: None Medications: Reviewed. Allergies: No known drug allergies. Family History: Hypertension and breast cancer. Social History: Nonsmoker. Positive Hx of alcohol abuse. No illicit drug use. Family History: FH: breast cancer mother FH: hypertension father Allergies: Coded Allergies: NO KNOWN ALLERGIES (Unverified , 03/26/19) Home Meds No Active Prescriptions or Reported Meds Current Medications Current Medications Medications (Trade) Dose Ordered Sig/Erik Route PRN Reason Start Time Stop Time Status Last Admin Rocuronium [place] 50 mg ONCE STAT IV 07/07/24 09:03 07/07/24 09:28 DC Rocuronium [place] 50 mg ONCE PRN IV 2ND DOSE PRN PER MD 07/07/24 09:45 Norepinephrine Bitartrate 250 ml @ 3.75 mls/hr Q24H IV 07/07/24 09:30 07/07/24 13:51 Phenylephrine HCl 250 ml @ 30 mls/hr Q8H20M IV 07/07/24 09:30 Vasopressin 20 units/Sodium Chloride 100 ml @ 9 mls/hr Q11H7M IV 07/07/24 09:30 07/07/24 12:17 DC 07/07/24 11:39 Fentanyl Citrate 250 ml @ 2.5 mls/hr Q24H IV 07/07/24 09:30 07/07/24 18:06 Calcium Gluconate/ Sodium Chloride 50 ml @ 100 mls/hr Q30M IV 07/07/24 10:15 07/07/24 11:14 DC 07/07/24 11:00 Zirconium Oxide (Lokelma) 10 gm TID PO 07/07/24 14:00 07/09/24 06:01 Hydrocortisone Sodium Succinate (Solu-CORTEF INJECTION) 50 mg Q6HR IV 07/07/24 12:00 07/07/24 18:02 Meropenem 50 ml @ 17 mls/hr DAILY IV 07/08/24 10:00 Pantoprazole Sodium (Protonix) 40 mg BID IV 07/07/24 22:00 07/07/24 17:08 DC Vasopressin 20 units/Sodium Chloride 100 ml @ 9 mls/hr Q11H7M IV 07/07/24 12:30 07/07/24 13:51 Sodium Bicarbonate 150 ml/Dextrose 1,150 ml @ 100 mls/hr [id number] IV 07/07/24 15:30 07/07/24 20:06 Albumin Human 100 ml @ 100 mls/hr PRN PRN IV SBP>140 07/07/24 16:30 07/09/24 17:29 Pantoprazole Sodium 50 ml @ 10 mls/hr Q5H IV 07/07/24 17:15 07/07/24 18:00 Octreotide Acetate 500 mcg/ Sodium Chloride 100 ml @ 10 mls/hr Q10H IV 07/07/24 17:15 07/07/24 20:20 Vital Signs Vital Signs Date Time Temp Pulse Resp B/P (MAP) Pulse Ox O2 Delivery O2 Flow Rate FiO2 07/07/24 20:15 103 30 127/38 (67) 100 50 07/07/24 18:30 Mechanical Ventilator+ 07/07/24 16:00 97.6 97.6 07/07/24 10:00 0 Physical Exam Gen.: Patient lying in bed in medical ICU. Sedated, intubated on mechanical ventilator. Head: Normocephalic, atraumatic. Eyes: PERRLA. Ears: Normal external anatomy. Throat: Endotracheal tube and orogastric tube in place. Neck: Supple, trachea midline. Chest: Transmitted breath sounds bilaterally. Decreased air entry bilaterally. No wheezing. Bibasilar crackles. Cardiovascular: Positive S1, positive S2. Regular rate and rhythm. Abdomen: Positive bowel sounds in all 4 quadrants. Soft, nontender, nondistended. : Ho in place. Normal external genitalia. Rectal: Deferred. Skin: Warm, dry. Intact. Extremities: 2+ radial pulses bilaterally. No lower extremity edema. Neuro: Sedated. Labs/Diagnostic Data Labs Test 07/07/24 19:30 07/07/24 18:30 07/07/24 18:15 07/07/24 13:54 Range/Units Blood Gas Specimen Type Arterial Blood Gas Sample Site Arterial line Blood Gas Patient Temperature 37.0 Arterial Blood Date Drawn [id number] Arterial Blood pH 7.387 7.350-7.450 Arterial Blood Partial Pressure CO2 46.4 35.0-48.0 mmHg Arterial Blood Partial Pressure O2 156.8 H 83.0-108.0 mmHg Arterial Blood HCO3 27.3 21.0-28.0 mmol/L Arterial Blood Oxygen Saturation 99.3 H 94.0-98.0 % Arterial Blood Base Excess 2.0 -2.0-3.0 mmol/L Arterial Blood Oxyhemoglobin 96.7 94.0-98.0 % Arterial Blood Carboxyhemoglobin 2.0 H 0.5-1.5 % Arterial Blood Methemoglobin 0.6 0.0-1.5 % Johnny Test N/a Blood Gas Total Hemoglobin 7.40 L 13.5-17.5 g/dL Blood Gas Modality ac FiO2 % 60.0 Blood Gas Tidal Volume 450.0 Blood Gas PEEP or CPAP 5.0 POC Glucose 147 H 70-106 mg/dl Lactic Acid Level 4.9 *H 0.4-2.0 mmol/L Blood Gas Set Respiration Rate 26.0 Blood Gas Critical Value Read Back Yes Blood Gas Notified Whom donis Zazueta Blood Gas Notified Time [id number] Blood Gas Notified By Jaxon shrestha Test 07/07/24 11:55 07/07/24 09:12 07/06/24 05:02 07/03/24 06:23 Range/Units Prothrombin Time 27.2 H 9.3-11.8 sec Prothrombin Time INR 2.85 H 0.9-1.15 Activated Partial Thromboplast Time 56.7 H 24.5-34.5 SEC White Blood Count 19.5 H 4.4-10.8 10^3/uL Red Blood Count 2.53 L 4.5-5.90 10^6/uL Hemoglobin 8.2 L 13.5-17.5 g/dL Hematocrit 25.6 #L 41.0-53.0 % Mean Corpuscular Volume 100.9 #H 80.0-100.0 fL Mean Corpuscular Hemoglobin 32.4 H 28.0-32.0 pg Mean Corpuscular Hemoglobin Concent 32.1 32.0-36.0 g/dL Red Cell Distribution Width 17.5 H 11.8-14.3 % Platelet Count 80 L 140-450 10^3/uL Mean Platelet Volume 8.3 6.9-10.8 fL Neutrophils (%) (Auto) 85.3 H 37.0-80.0 % Lymphocytes (%) (Auto) 6.9 L 10.0-50.0 % Monocytes (%) (Auto) 7.2 0.0-12.0 % Eosinophils (%) (Auto) 0.0 0.0-7.0 % Basophils (%) (Auto) 0.6 0.0-2.0 % Neutrophils # (Auto) 16.6 H 1.6-8.6 10 ^3/uL Lymphocytes # (Auto) 1.3 0.4-5.4 10 ^3/uL Monocytes # (Auto) 1.4 H 0-1.3 10 ^3/uL Eosinophils # (Auto) 0 0-0.8 10 ^3/uL Basophils # (Auto) 0.1 0-0.2 10 ^3/uL Nucleated Red Blood Cells 0.1 % Platelet Estimate Decreased Macrocytosis Slight Gavino Cells Few Sodium Level 138 136-145 mmol/L Potassium Level 6.3 *H 3.5-5.1 mmol/L Chloride Level 91 L 98-107 mmol/L Carbon Dioxide Level 16 #L 20-31 mmol/L Anion Gap 31 H 5-15 Blood Urea Nitrogen 88 *H 9-23 mg/dL Creatinine 7.62 H 0.700-1.30 mg/dL Glomerular Filtration Rate Calc 8 >90 mL/min BUN/Creatinine Ratio 11.5 10.0-20.0 Serum Glucose 89 74-106 mg/dL Calcium Level 10.6 H 8.7-10.4 mg/dL Total Bilirubin 23.5 H 0.2-1.0 mg/dL Aspartate Amino Transferase (AST) 263 H 13-40 U/L Alanine Aminotransferase (ALT) 60 H 7-40 U/L Alkaline Phosphatase 73 46-116 U/L Ammonia 33 H 11-32 umol/L Total Protein 6.0 5.7-8.2 g/dL Albumin 3.0 L 3.2-4.8 g/dL Clumped Platelets Few Poikilocytosis (manual) Slight Anisocytosis (manual) Slight Direct Bilirubin 12.4 H <0.3 mg/dL Differential Total Cells Counted 100.0 100 Neutrophils % (Manual) 69 37.0-80.0 Band Neutrophils % (Manual) 2 Lymphocytes % (Manual) 14 10.0-50.0 Monocytes % (Manual) 15 H 0-12 Eosinophils % (Manual) 0 0-7 Basophils % (Manual) 0 0.0-2.0 Metamyelocytes % (manual) 0 Myelocytes % (Manual) 0 Promyelocytes % (Manual) 0 Blast Cells % (Manual) 0 Reactive Lymphocytes 0 Tumor Marker Alpha Fetoprotein <1.8 0.0-8.4 ng/mL Free Prostate Specific Antigen 0.05 N/A ng/mL Percent Free Prostate Specific Ag 8.3 . % Prostate Specific Antigen Total 0.6 0.0-4.0 ng/mL Test 07/02/24 04:40 07/02/24 03:28 07/01/24 17:21 07/01/24 15:13 Range/Units Hepatitis A Antibody Total Positive H Negative Hepatitis B Surface Antigen Negative Negative Hepatitis B Surface Antibody Negative Negative Hepatitis B Core Total Antibody Negative Negative Hepatitis C Antibody Negative Negative Stool Occult Blood Positive Negative Stool Occult Blood Sample #3 Negative Urine Color Arnold H Yellow Urine Clarity Ex.turbid Clear Urine pH 7.0 5.0-9.0 Urine Specific [place] 1.014 1.001-1.035 Urine Protein 1+ H Negative Urine Ketones Negative Negative Urine Blood 3+ H Negative /uL Urine Nitrite Negative Negative Urine Bilirubin 1+ Negative Urine Urobilinogen Normal Negative mg/dL Urine Leukocyte Esterase 3+ Negative /uL Urine RBC 172 0 - 3 /hpf Urine WBC Clumps Present None Seen /hpf Urine Microscopic WBC 3958 H 0-3 /HPF Urine Squamous Epithelial Cells Few <5 /hpf Urine Transitional Epithelial Cells Few <2 /hpf Urine Bacteria Few H None Seen /hpf Urine Mucus Few None Seen Urine Creatinine 83.04 30.0-125.0 mg/dL Urine Sodium 29 L 40-220 mmol/L Urine Glucose Normal Normal mg/dL Urine Total Protein 49.2 H 1-14 mg/dL Urine Opiates Screen Neg NEGATIVE Urine Fentanyl Screen Neg NEGATIVE Urine Barbiturates Screen Neg NEGATIVE Urine Phencyclidine Screen Neg NEGATIVE Urine Amphetamines Screen Neg NEGATIVE Urine Benzodiazepines Screen Neg NEGATIVE Urine Cocaine Screen Neg NEGATIVE Urine Cannabinoids Screen Neg NEGATIVE Blood Gas Liter Flow 6.00 Test 07/01/24 10:00 07/01/24 08:53 06/30/24 21:44 Range/Units Iron Level 54 L 65-175 ug/dL Total Iron Binding Capacity 95 L 250-425 ug/dL Percent Iron Saturation 56.8 H 20-55 % Ferritin 1619.9 H 22-322 ng/mL Troponin I High Sensitivity 13 </=54 ng/L Vitamin B12 Level 2308 H 211-911 pg/mL Vitamin D 25-Hydroxy 28.5 L 30.0-100 ng/mL Folic Acid 11.87 >5.38 ng/mL Body Fluid Source Peritoneal fluid Body Fluid pH 9.0 Body Fluid WBC (Manual) 2108 H 0-200 CUMM Body Fluid RBC (Manual) 0 0-2000 CUMM Body Fluid Mononuclear Cells 2 % Body Fluid Polymorphonuclear Cells 98 H 0-25 % Body Fluid Glucose 93 . mg/dL Body Fluid Total Protein 1.2 . g/dL Body Fluid Albumin 0.8 Not Estab. g/dL Body Fluid Lactate Dehydrogenase 229 . IU/L Body Fluid Amylase < 3 . U/L Magnesium Level 2.4 1.6-2.6 mg/dL Plasma/Serum Blood Alcohol 3.6 <10 mg/dL Microbiology Date/Time Source Procedure Growth Status 07/01/24 17:21 Voided Urine Urine Culture - Final Enterococcus faecium Complete 07/01/24 08:53 Ascities Fluid Gram Stain - Final Complete 07/01/24 08:53 Ascities Fluid Body Fluid Culture - Final Complete 06/30/24 21:52 Blood Blood Culture - Final NO GROWTH AFTER 5 DAYS OF INCUBATION. Complete Assessment Impression: Acute hypercarbic respiratory failure On mechanical ventilator Acute metabolic encephalopathy Shock Liver cirrhosis Hx of ETOH abuse Plan: s/p intubation on mechanical ventilator. CXR image and report reviewed. Devices in place. Right basilar opacity. No pneumothorax. No pleural effusion. ABG reviewed, notable for acidemia. On AC mode; RR 26, VT 450, PEEP 5, FiO2 100% (RR was increased to 26) Obtain repeat ABG Received sodium bicarb Titrate FIO2 to keep O2 saturation above 90%. VAP bundle. Daily ABG and CXR while intubated Sedate for ventilator synchrony Continue bronchodilators. Continue antibiotics. Octreotide drip Protonix drip Follow up GI recommendations On pressors for hemodynamic support On Levophed and vasopressin Titrate to keep mean arterial pressure greater than 65 mmHg. IV fluids with LR Accu-Cheks, ISS Diurese as tolerated w/ Bumex Monitor renal function Monitor electrolytes. Supplement as necessary. Monitor ins and outs. Maintain euvolemia. GI prophylaxis. DVT prophylaxis. Prognosis: Poor given patient's multiple co-morbidities. Condition: Critical Rest of plan per hospitalist and other consultants. A total of 35 minutes of critical care time was spent reviewing the patient record, examining the patient, making a diagnostic and therapeutic plan, discussing this plan with the medical personnel, following up on diagnostic studies and following the patient for clinical stability excluding any and all procedures. At least 50% of this time was spent in direct, [id number] contact. Thank you Dr. Ovalle for allowing me to participate in this patient's care. Further recommendations will depend on the patient's clinical course. Please do not hesitate to contact me if you have any questions or concerns. This medical document was created using an electronic medical record system with [employer] dictation system. Although these documentations are being carefully reviewed, there may still be some phonetic and typographical changes. The errors are purely typographical, due to imperfection on the software program, and do not reflect any compromise in the patient's medical care. Plan discussed with: Other (RN/Dr. Ovalle) JOAQUÍN VILLAFANA MD Jul 07, 2024 20:45
[2024-07-07] MEDS: phytonadione 2.5 MG in SODIUM CHL 0.9% 50 ML IV ONE (20:46)
[2024-07-07] MEDS: EPOETIN ALFA-EPBX 10,000 UNIT/1ML VIAL SC ONE (20:48)
[2024-07-07 21:09] LABS: Hematocrit 19.8 % (41.0-53.0)
[2024-07-07 21:14] LABS: Hemoglobin 6.6 g/dL (13.5-17.5)
--- NOTE | 2024-07-07 21:19 | DVHINCON2 ---
Date of service: Jul 07, [address] Ovalle Reason for Consultation AMS, hepatic encephalopathy History of Present Illness Mr. Juarez is a 53 years old right-handed gentleman with a history of liver failure, liver cirrhosis, alcoholism, prostatic cancer, anxiety, hepatorenal syndrome, he came to the hospital on 06/30/24 because of for a few days. In the hospital, the patient was found to have severe jaundice, liver failure, coagulopathy, urinary tract infection, sepsis, kidney failure. 07/08/2023, the patient was had code assistance because of hypotension and he was nonresponsive, the patient was resuscitated, intubated and transferred to ICU At the time, the patient is sedated, but is responsive to light touch, he was moves the arms and legs spontaneously intermittently I saw him on 11/03/2020 for seizure Hearing culture, 07/01/2024: Enterococcus faecium Blood culture, 06/30/2024: No growth UDS, 07/01/2024: Negative Plasma alcohol, 06/30/2024: 3.6 Urinalysis, 07/01/2024: WBC: 3958, urine leukocyte esterase: 3+ ABG, 07/07/2024: Combined metabolic and respiratory acidosis, respiratory acidosis WBC/HB/PLT/MCV, 07/07/2024: 19.5/8.2/80/100.9 PT/INR/PTT, 07/07/2024: 27.2/2.85/56.7 K 07/07/2024: 6.3 BUN/CR, 07/07/2024: 88/7.62 TBI/AST/ALT/AP, 07/07/2024: 23.5/263/60/73 Lactic acid, 07/07/2024: 6.9, 4.9 Ammonia, 11/02/2020: 98, 11/03/2020: 109, 95, 11/07/2020: 95, 06/30/2024: 54, 06/2024: 11, 07/07/2024: 33 Vitamin B12, 07/01/24: 2308 Folic acid, 07/01/24: 11.87 Chest x-ray, 07/07/2024: Right basilar opacity. Lines and tubes in appropriate position. CT head, 08/18/2020: No acute intracranial abnormality identified. Mild cerebral volume loss. Cerebral atherosclerosis CT head, 06/30/2024: No acute intracranial abnormality CTA, 11/05/2020: No intracranial hemorrhage Past Medical History Liver failure, liver cirrhosis, prostatic cancer, anxiety, hepatorenal syndrome Past Surgical History No major surgeries Family History: FH: breast cancer mother FH: hypertension father Family History Hypertension, coronary artery disease, skin disorder, breast cancer Social History She was a tobacco smoker, history of heavy alcohol consumption. No history of drug abuse Allergies: Coded Allergies: NO KNOWN ALLERGIES (Unverified , 03/26/19) Home Meds No Active Prescriptions or Reported Meds Current Medications Current Medications Medications (Trade) Dose Ordered Sig/Erik Route PRN Reason Start Time Stop Time Status Last Admin Rocuronium [place] 50 mg ONCE STAT IV 07/07/24 09:03 07/07/24 09:28 DC Rocuronium [place] 50 mg ONCE PRN IV 2ND DOSE PRN PER MD 07/07/24 09:45 Norepinephrine Bitartrate 250 ml @ 3.75 mls/hr Q24H IV 07/07/24 09:30 07/07/24 13:51 Phenylephrine HCl 250 ml @ 30 mls/hr Q8H20M IV 07/07/24 09:30 Vasopressin 20 units/Sodium Chloride 100 ml @ 9 mls/hr Q11H7M IV 07/07/24 09:30 07/07/24 12:17 DC 07/07/24 11:39 Fentanyl Citrate 250 ml @ 2.5 mls/hr Q24H IV 07/07/24 09:30 07/07/24 18:06 Calcium Gluconate/ Sodium Chloride 50 ml @ 100 mls/hr Q30M IV 07/07/24 10:15 07/07/24 11:14 DC 07/07/24 11:00 Zirconium Oxide (Lokelma) 10 gm TID PO 07/07/24 14:00 07/09/24 06:01 Hydrocortisone Sodium Succinate (Solu-CORTEF INJECTION) 50 mg Q6HR IV 07/07/24 12:00 07/07/24 18:02 Meropenem 50 ml @ 17 mls/hr DAILY IV 07/08/24 10:00 Pantoprazole Sodium (Protonix) 40 mg BID IV 07/07/24 22:00 07/07/24 17:08 DC Vasopressin 20 units/Sodium Chloride 100 ml @ 9 mls/hr Q11H7M IV 07/07/24 12:30 07/07/24 13:51 Sodium Bicarbonate 150 ml/Dextrose 1,150 ml @ 100 mls/hr [id number] IV 07/07/24 15:30 07/07/24 20:06 Albumin Human 100 ml @ 100 mls/hr PRN PRN IV SBP>140 07/07/24 16:30 07/09/24 17:29 Pantoprazole Sodium 50 ml @ 10 mls/hr Q5H IV 07/07/24 17:15 07/07/24 18:00 Octreotide Acetate 500 mcg/ Sodium Chloride 100 ml @ 10 mls/hr Q10H IV 07/07/24 17:15 07/07/24 20:20 Review of Systems As above, the other system negative Vital Signs Vital Signs Date Time Temp Pulse Resp B/P (MAP) Pulse Ox O2 Delivery O2 Flow Rate FiO2 07/07/24 20:15 103 30 127/38 (67) 100 50 07/07/24 18:30 Mechanical Ventilator+ 07/07/24 16:00 97.6 97.6 07/07/24 10:00 0 Physical Exam The patient is well-nourished and well-developed with no distress. The patient is intubated. He has jaundice HEENT: Normocephalic, neck supple, no carotid bruits Lungs: Clear to auscultation Cardiovascular: Regular rate and region, S1, S2, no murmurs Abdomen: Soft, nontender, normal bowel sounds Bilateral hammertoes and high-arched foot MENTAL STATUS: Responds touch stimuli, he has spontaneous movement in the hands and feet CRANIAL NERVES: Pupils are equal, round and reactive.There are corneal reflexes and doll's eyes phenomenon. No signs of facial weakness. There are gagging or coughing reflexes SENSATION: No responses to pain stimuli. MOTOR: Normal tone in the upper and lower extremity. Normal muscle bulk. No fasciculations. He moves the arms and legs a little bit REFLEXES: Deep tendon reflexes are symmetrical. No pathological reflexes. CEREBELLAR/COORDINATION: Deferred GAIT/STATION: deferred. Labs/Diagnostic Data Labs Test 07/07/24 20:51 07/07/24 19:30 07/07/24 18:30 07/07/24 18:15 Range/Units Blood Gas Specimen Type Arterial Blood Gas Sample Site Arterial line Blood Gas Patient Temperature 37.0 Arterial Blood Date Drawn [id number] Arterial Blood pH 7.387 7.350-7.450 Arterial Blood Partial Pressure CO2 46.4 35.0-48.0 mmHg Arterial Blood Partial Pressure O2 156.8 H 83.0-108.0 mmHg Arterial Blood HCO3 27.3 21.0-28.0 mmol/L Arterial Blood Oxygen Saturation 99.3 H 94.0-98.0 % Arterial Blood Base Excess 2.0 -2.0-3.0 mmol/L Arterial Blood Oxyhemoglobin 96.7 94.0-98.0 % Arterial Blood Carboxyhemoglobin 2.0 H 0.5-1.5 % Arterial Blood Methemoglobin 0.6 0.0-1.5 % Johnny Test N/a Blood Gas Total Hemoglobin 7.40 L 13.5-17.5 g/dL Blood Gas Modality ac FiO2 % 60.0 Blood Gas Tidal Volume 450.0 Blood Gas PEEP or CPAP 5.0 POC Glucose 147 H 70-106 mg/dl Lactic Acid Level 4.9 *H 0.4-2.0 mmol/L Test 07/07/24 13:54 07/07/24 11:55 07/07/24 09:12 07/06/24 05:02 Range/Units Blood Gas Set Respiration Rate 26.0 Blood Gas Critical Value Read Back Yes Blood Gas Notified Whom donis Zazueta Blood Gas Notified Time [id number] Blood Gas Notified By Jaxon shrestha Prothrombin Time 27.2 H 9.3-11.8 sec Prothrombin Time INR 2.85 H 0.9-1.15 Activated Partial Thromboplast Time 56.7 H 24.5-34.5 SEC White Blood Count 19.5 H 4.4-10.8 10^3/uL Red Blood Count 2.53 L 4.5-5.90 10^6/uL Mean Corpuscular Volume 100.9 #H 80.0-100.0 fL Mean Corpuscular Hemoglobin 32.4 H 28.0-32.0 pg Mean Corpuscular Hemoglobin Concent 32.1 32.0-36.0 g/dL Red Cell Distribution Width 17.5 H 11.8-14.3 % Platelet Count 80 L 140-450 10^3/uL Mean Platelet Volume 8.3 6.9-10.8 fL Neutrophils (%) (Auto) 85.3 H 37.0-80.0 % Lymphocytes (%) (Auto) 6.9 L 10.0-50.0 % Monocytes (%) (Auto) 7.2 0.0-12.0 % Eosinophils (%) (Auto) 0.0 0.0-7.0 % Basophils (%) (Auto) 0.6 0.0-2.0 % Neutrophils # (Auto) 16.6 H 1.6-8.6 10 ^3/uL Lymphocytes # (Auto) 1.3 0.4-5.4 10 ^3/uL Monocytes # (Auto) 1.4 H 0-1.3 10 ^3/uL Eosinophils # (Auto) 0 0-0.8 10 ^3/uL Basophils # (Auto) 0.1 0-0.2 10 ^3/uL Nucleated Red Blood Cells 0.1 % Platelet Estimate Decreased Macrocytosis Slight Gavino Cells Few Sodium Level 138 136-145 mmol/L Potassium Level 6.3 *H 3.5-5.1 mmol/L Chloride Level 91 L 98-107 mmol/L Carbon Dioxide Level 16 #L 20-31 mmol/L Anion Gap 31 H 5-15 Blood Urea Nitrogen 88 *H 9-23 mg/dL Creatinine 7.62 H 0.700-1.30 mg/dL Glomerular Filtration Rate Calc 8 >90 mL/min BUN/Creatinine Ratio 11.5 10.0-20.0 Serum Glucose 89 74-106 mg/dL Calcium Level 10.6 H 8.7-10.4 mg/dL Total Bilirubin 23.5 H 0.2-1.0 mg/dL Aspartate Amino Transferase (AST) 263 H 13-40 U/L Alanine Aminotransferase (ALT) 60 H 7-40 U/L Alkaline Phosphatase 73 46-116 U/L Ammonia 33 H 11-32 umol/L Total Protein 6.0 5.7-8.2 g/dL Albumin 3.0 L 3.2-4.8 g/dL Clumped Platelets Few Poikilocytosis (manual) Slight Anisocytosis (manual) Slight Direct Bilirubin 12.4 H <0.3 mg/dL Test 07/03/24 06:23 07/02/24 04:40 07/02/24 03:28 07/01/24 17:21 Range/Units Differential Total Cells Counted 100.0 100 Neutrophils % (Manual) 69 37.0-80.0 Band Neutrophils % (Manual) 2 Lymphocytes % (Manual) 14 10.0-50.0 Monocytes % (Manual) 15 H 0-12 Eosinophils % (Manual) 0 0-7 Basophils % (Manual) 0 0.0-2.0 Metamyelocytes % (manual) 0 Myelocytes % (Manual) 0 Promyelocytes % (Manual) 0 Blast Cells % (Manual) 0 Reactive Lymphocytes 0 Tumor Marker Alpha Fetoprotein <1.8 0.0-8.4 ng/mL Free Prostate Specific Antigen 0.05 N/A ng/mL Percent Free Prostate Specific Ag 8.3 . % Prostate Specific Antigen Total 0.6 0.0-4.0 ng/mL Hepatitis A Antibody Total Positive H Negative Hepatitis B Surface Antigen Negative Negative Hepatitis B Surface Antibody Negative Negative Hepatitis B Core Total Antibody Negative Negative Hepatitis C Antibody Negative Negative Stool Occult Blood Positive Negative Stool Occult Blood Sample #3 Negative Urine Color Russell H Yellow Urine Clarity Ex.turbid Clear Urine pH 7.0 5.0-9.0 Urine Specific [place] 1.014 1.001-1.035 Urine Protein 1+ H Negative Urine Ketones Negative Negative Urine Blood 3+ H Negative /uL Urine Nitrite Negative Negative Urine Bilirubin 1+ Negative Urine Urobilinogen Normal Negative mg/dL Urine Leukocyte Esterase 3+ Negative /uL Urine RBC 172 0 - 3 /hpf Urine WBC Clumps Present None Seen /hpf Urine Microscopic WBC 3958 H 0-3 /HPF Urine Squamous Epithelial Cells Few <5 /hpf Urine Transitional Epithelial Cells Few <2 /hpf Urine Bacteria Few H None Seen /hpf Urine Mucus Few None Seen Urine Creatinine 83.04 30.0-125.0 mg/dL Urine Sodium 29 L 40-220 mmol/L Urine Glucose Normal Normal mg/dL Urine Total Protein 49.2 H 1-14 mg/dL Urine Opiates Screen Neg NEGATIVE Urine Fentanyl Screen Neg NEGATIVE Urine Barbiturates Screen Neg NEGATIVE Urine Phencyclidine Screen Neg NEGATIVE Urine Amphetamines Screen Neg NEGATIVE Urine Benzodiazepines Screen Neg NEGATIVE Urine Cocaine Screen Neg NEGATIVE Urine Cannabinoids Screen Neg NEGATIVE Test 07/01/24 15:13 07/01/24 10:00 07/01/24 08:53 06/30/24 21:44 Range/Units Blood Gas Liter Flow 6.00 Iron Level 54 L 65-175 ug/dL Total Iron Binding Capacity 95 L 250-425 ug/dL Percent Iron Saturation 56.8 H 20-55 % Ferritin 1619.9 H 22-322 ng/mL Troponin I High Sensitivity 13 </=54 ng/L Vitamin B12 Level 2308 H 211-911 pg/mL Vitamin D 25-Hydroxy 28.5 L 30.0-100 ng/mL Folic Acid 11.87 >5.38 ng/mL Body Fluid Source Peritoneal fluid Body Fluid pH 9.0 Body Fluid WBC (Manual) 2108 H 0-200 CUMM Body Fluid RBC (Manual) 0 0-2000 CUMM Body Fluid Mononuclear Cells 2 % Body Fluid Polymorphonuclear Cells 98 H 0-25 % Body Fluid Glucose 93 . mg/dL Body Fluid Total Protein 1.2 . g/dL Body Fluid Albumin 0.8 Not Estab. g/dL Body Fluid Lactate Dehydrogenase 229 . IU/L Body Fluid Amylase < 3 . U/L Magnesium Level 2.4 1.6-2.6 mg/dL Plasma/Serum Blood Alcohol 3.6 <10 mg/dL Microbiology Date/Time Source Procedure Growth Status 07/01/24 17:21 Voided Urine Urine Culture - Final Enterococcus faecium Complete 07/01/24 08:53 Ascities Fluid Gram Stain - Final Complete 07/01/24 08:53 Ascities Fluid Body Fluid Culture - Final Complete 06/30/24 21:52 Blood Blood Culture - Final NO GROWTH AFTER 5 DAYS OF INCUBATION. Complete Assessment Coma Metabolic cephalopathy Hepatic encephalopathy Hypoxic encephalopathy UTI, sepsis, septic shock Liver failure History of Alcoholism Jaundice Respiratory failure Coagulopathy GI on case Plan/Recommendation Monitoring Supportive treatment ICU care EEG Follow-up labs Stabilize vitals/pressor drip Respiratory support/vent management Thiamine supplementation Lactulose Nephrology on case Pulmonology on case GI on case Prognosis: Guarded Critical care time spent is 45 minutes, 50% time was [id number] consultation Plan discussed with: Other ERIC ARIAS MD Jul 07, 2024 21:19
[2024-07-07] MEDS ORDERED: PANTOPRAZOLE 40 MG/10 ML VIAL INJ IV SCH (22:00)
[2024-07-08] VITALS (112 sets, daily range): BP systolic 76–156; BP diastolic 30–86; PULSE 76–101; RESP 8–31; TEMP 96.7–98.3; O2SAT 88–100
[2024-07-08] MEDS ORDERED: LORazepam 2MG/ML-1ML VIAL IV PRN
[2024-07-08] MEDS: LACTULOSE 10g/15ml SOLN 473ML PR SCH (01:01)
[2024-07-08 03:57] LABS: Hematocrit 20.7 % (41.0-53.0); Hemoglobin 7.1 g/dL (13.5-17.5); Mean Corpuscular Hgb Conc. 34.5 g/dL (32.0-36.0); Mean Corpuscular Volume 92.7 fL (80.0-100.0); Platelet Count (auto) 38 10^3/uL (140-450); Red Blood Cells 2.23 10^6/uL (4.5-5.90); Red Cell Distribution Width 16.5 % (11.8-14.3)
[2024-07-08 04:02] LABS: White Blood Cell 34.3 10^3/uL (4.4-10.8)
[2024-07-08 04:04] LABS: Basophils % (manual) 0 (0.0-2.0); Blast Cells 0; Eosinophils % (manual) 0 (0-7); Metamyelocytes % 0; Monocytes % (manual) 0 (0-12); Myelocytes % 0; Promyelocytes % 0; Reactive Lymphocytes 0
[2024-07-08 04:12] LABS: Alkaline Phosphatase 63 U/L (46-116); Anion Gap 17 (5-15); Calcium 10.1 mg/dL (8.7-10.4); Carbon Dioxide 29 mmol/L (20-31); Magnesium 2.2 mg/dL (1.6-2.6); Sodium 138 mmol/L (136-145)
[2024-07-08 04:13] LABS: Albumin 3.1 g/dL (3.2-4.8); Chloride 92 mmol/L (98-107); Glucose 253 mg/dL (74-106); Phosphorus 8.6 mg/dL (2.4-5.1)
[2024-07-08 04:14] LABS: BUN/Creatinine Ratio 12.4 (10.0-20.0)
[2024-07-08 04:15] LABS: Alanine Aminotransferase 170 U/L (7-40); Aspartate Aminotransferase 781 U/L (13-40); Blood Urea Nitrogen 68 mg/dL (9-23); Total Protein 5.4 g/dL (5.7-8.2)
[2024-07-08 05:10] LABS: Band Neutrophils % (manual) 3; Lymphocytes % (manual) 6 (10.0-50.0)
[2024-07-08 05:11] LABS: Platelet Estimate Decreased
--- NOTE | 2024-07-08 05:22 | DVH ---
EXAM: XR Chest, 1 View CLINICAL INDICATION: intubated TECHNIQUE: Frontal view of the chest. COMPARISON: XY CHEST XRAY 1 VIEW on DOS: 07/07/24, XY CHEST XRAY 1 VIEW on DOS: 07/07/24, XY CHEST PORT ABLE on DOS: 07/07/24, XY CHEST PORTABLE on DOS: 06/30/24, CHEST PORTABLE on DOS: 11/08/20 FINDINGS: LUNGS AND PLEURAL SPACES: Left basilar atelectasis or pneumonia. No pneumothorax. HEART: Unremarkable. No cardiomegaly. MEDIASTINUM: Unremarkable. Normal mediastinal contour. BONES/JOINTS: Unremarkable. No acute fracture. TUBES, LINES AND DEVICES: Right internal jugular central venous catheter tip in the superior vena c ladan. The endotracheal tube (ETT) is in satisfactory position. Left internal jugular central venous catheter tip in the superior vena cava. OTHER FINDINGS: . . . .. IMPRESSION: Left basilar atelectasis or pneumonia.
[2024-07-08 06:53] LABS: Base Excess 5.2 mmol/L (-2.0-3.0)
[2024-07-08] MEDS: SODIUM CHL 0.9% 1000 ML BAG XX ONE (07:00)
--- NOTE | 2024-07-08 09:08 | DVHPN2 ---
Progress Note - Dictate Date Seen: Jul 08, 2024 Has the PT tested + for MRSA If YES, has PT been informed?: No Medical Necessity Reason Pt with a Central, PICC or Fol: Yes Subjective Mr. Juarez is a 53 years old right-handed gentleman with a history of liver failure, liver cirrhosis, alcoholism, prostatic cancer, anxiety, hepatorenal syndrome, he came to the hospital on 06/30/24 because of for a few days. In the hospital, the patient was found to have severe jaundice, liver failure, coagulopathy, urinary tract infection, sepsis, kidney failure. On 07/08/2023, the patient was had code assistance because of hypotension and he was nonresponsive, the patient was resuscitated, intubated and transferred to ICU I saw him on 11/03/2020 for seizure I have seen and examined the patient, he is sedated, but is responsive to light touch, Hearing culture, 07/01/2024: Enterococcus faecium Blood culture, 06/30/2024: No growth UDS, 07/01/2024: Negative Plasma alcohol, 06/30/2024: 3.6 Urinalysis, 07/01/2024: WBC: 3958, urine leukocyte esterase: 3+ ABG, 07/07/2024: Combined metabolic and respiratory acidosis, respiratory acidosis WBC/HB/PLT/MCV, 07/07/2024: 19.5/8.2/80/100.9 PT/INR/PTT, 07/07/2024: 27.2/2.85/56.7 K 07/07/2024: 6.3 BUN/CR, 07/07/2024: 88/7.62 TBI/AST/ALT/AP, 07/07/2024: 23.5/263/60/73 Lactic acid, 07/07/2024: 6.9, 4.9 Ammonia, 11/02/2020: 98, 11/03/2020: 109, 95, 11/07/2020: 95, 06/30/2024: 54, 07/03/2024: 11, 07/07/2024: 33 Vitamin B12, 07/01/24: 2308 Folic acid, 07/01/24: 11.87 Chest x-ray, 07/07/2024: Right basilar opacity. Lines and tubes in appropriate position. CT head, 08/18/2020: No acute intracranial abnormality identified. Mild cerebral volume loss. Cerebral atherosclerosis CT head, 06/30/2024: No acute intracranial abnormality CTA, 11/05/2020: No intracranial hemorrhage vital signs Vital Sign Date Time Temp Pulse Resp B/P (MAP) Pulse Ox O2 Delivery O2 Flow Rate FiO2 07/08/24 09:01 127/43 07/08/24 08:08 89 30 96 40 07/08/24 06:30 Mechanical Ventilator+ 07/08/24 04:52 98.0 98.0 07/07/24 10:00 0 Total Intake and Output 07/07/24 07/07/24 07/08/24 15:00 23:00 07:00 Intake Total 500.50 ml 1726.25 ml 1845.75 ml Output Total 0 ml Balance 500.50 ml 1726.25 ml 1845.75 ml medications Current Medications Medications Dose Ordered Sig/Erik Route Start Time Stop Time Status Last Admin Dose Admin Ondansetron HCl 4 mg Q4HP PRN IV 07/01/24 02:45 Midodrine 10 mg TID@0600,1200,1800 PO 07/01/24 06:00 07/07/24 04:31 10 MG Linezolid 300 ml @ 150 mls/hr Q12HR@0800,2000 IV 07/01/24 08:00 07/08/24 08:52 150 MLS/HR Lorazepam 1 mg Q5MINP PRN IV 07/02/24 07:15 07/08/24 01:01 1 MG Thiamine HCl 100 mg DAILY PO 07/03/24 10:00 Bumetanide 1 mg BIDD IV 07/04/24 10:00 07/08/24 06:01 1 MG Haloperidol Lactate 5 mg Q8HP PRN IM 07/04/24 00:00 07/05/24 22:48 5 MG Rocuronium [place] 50 mg ONCE PRN IV 07/07/24 09:45 Norepinephrine Bitartrate 250 ml @ 3.75 mls/hr Q24H IV 07/07/24 09:30 07/07/24 23:22 11.25 MLS/HR Phenylephrine HCl 250 ml @ 30 mls/hr Q8H20M IV 07/07/24 09:30 Fentanyl Citrate 250 ml @ 2.5 mls/hr Q24H IV 07/07/24 09:30 07/08/24 09:01 35 MLS/HR Zirconium Oxide 10 gm TID PO 07/07/24 14:00 07/09/24 06:01 Hydrocortisone Sodium Succinate 50 mg Q6HR IV 07/07/24 12:00 07/08/24 06:13 50 MG Meropenem 50 ml @ 17 mls/hr DAILY IV 07/08/24 10:00 Vasopressin 20 units/Sodium Chloride 100 ml @ 9 mls/hr Q11H7M IV 07/07/24 12:30 07/08/24 02:14 12 MLS/HR Sodium Bicarbonate 150 ml/Dextrose 1,150 ml @ 100 mls/hr [id number] IV 07/07/24 15:30 07/08/24 06:40 100 MLS/HR Albumin Human 100 ml @ 100 mls/hr PRN PRN IV 07/07/24 16:30 07/09/24 17:29 Pantoprazole Sodium 50 ml @ 10 mls/hr Q5H IV 07/07/24 17:15 07/08/24 04:43 10 MLS/HR Octreotide Acetate 500 mcg/ Sodium Chloride 100 ml @ 10 mls/hr Q10H IV 07/07/24 17:15 07/08/24 03:13 10 MLS/HR Lactulose 300 ml Q6HR NM 07/08/24 00:00 07/08/24 06:01 300 ML Lorazepam 1 mg Q5MINP PRN IV 07/08/24 00:00 objective The patient is well-nourished and well-developed with no distress. The patient is intubated. He has jaundice Bilateral hammertoes and high-arched foot MENTAL STATUS: Subjective CRANIAL NERVES: Pupils are equal, round and reactive.There are corneal reflexes and doll's eyes phenomenon. No signs of facial weakness. There are gagging or coughing reflexes SENSATION: No responses to pain stimuli. MOTOR: Normal tone in the upper and lower extremity. Normal muscle bulk. No fasciculations. He moves the arms and legs a little bit REFLEXES: Deep tendon reflexes are symmetrical. No pathological reflexes. CEREBELLAR/COORDINATION: Deferred GAIT/STATION: deferred laboratory and microbiology Laboratory Tests 07/08/24 03:20 Test 07/08/24 03:20 Range/Units Serum Glucose 253 #H 74-106 mg/dL Problem List Altered mental status Metabolic cephalopathy Hepatic encephalopathy Hypoxic encephalopathy UTI, sepsis, septic shock Liver failure History of Alcoholism Jaundice Respiratory failure Coagulopathy GI on case Assessment/Plan Monitoring Supportive treatment ICU care EEG Follow-up labs Stabilize vitals/pressor drip Respiratory support/vent management Thiamine supplementation Lactulose Nephrology on case Pulmonology on case GI on case This medical document was created using an electronic medical record system with [employer] dictation system. Although this document has been carefully reviewed, there may still be some phonetic and typographical errors. These areas are purely typographical due to imperfections of the software programs, and do not reflect any compromise in the patient's medical care. Prognosis guarded Dietary Evaluation Review Comments: 1) Consider EN/PN if NPO>7 days 2) advance diet to renal specific 40gm if medically feasible 3) Continue current plan of care Expected Outcomes/Goals: Pt will meet >75% estimated needs Fu 2-3 days Plan discussed with: Other Critical Care Time(min): 30 CC Plasma Assessment Blood Product Administration S: [id number] ERIC ARIAS MD Jul 08, 2024 09:08
--- NOTE | 2024-07-08 09:19 | DVHPNRES ---
Progress Note Date Seen: Jul 08, 2024 Resident Creating Document: AUDRA CRANDALL RESIDENT Has the PT tested + for MRSA If YES, has PT been informed?: No Medical Necessity Reason Pt with a Central, PICC or Fol: Yes Subjective Review of Systems A 53-year-old male with past medical history of liver cirrhosis (due to alcohol use disorder)and CKD brought to the hospital due to altered mental status. Family were called, but the didnt answer, all the info was taken to the medical records Per EMS reports patient was taken from home and per family member he has been altered since 1 week which has progressively worsened. He was admitted on 10/31/2020 and DVT H due to GI bleeding, EGD was performed, showed gastritis with no active bleeding. PMHx: Liver cirrhosis due to alcohol use disorder, CKD Social history: Has history of alcohol use disorder 07/01/2024: paracentesis done 7LT, multiple wbc in the ascitic fluid, labile BPs, midodrine and octeotride started, zosyn and linezolid due to sepsis and possible SBP, start levophed if MAP below 60, fluids were given, protonix BID 07/02/2024: renal function is declining, hb is stable, FOB neg, protonix drip started, bumex drip started 07/06/2024: urine culture positive for VRE, patient is on zosyn and linezolid, hyperkalemia 5.8 07/07/2024: At around 9 a.m., patient was found gasping for air with MAP of 53. Rapid response was called. Mental status deteriorated (GCS drop), requiring intubation. Central line and Jordan catheter were placed. Started on vasopressors: Levophed up to 30 mcg/min and Vasopressin 0.04 U/min. Emergent dialysis was initiated due to uremia and hyperkalemia (K 6.3, later improved to 4.1). ABG showed compensated respiratory status. Patient was found to be hypoglycemic (glucose 16) during event. He is now sedated on fentanyl drip. Labs showed Hgb 6.6likely due to GI bleed; received blood products, Vitamin K, and PPI drip. Prognosis remains poor, and case was re-discussed with family; full code until now 07/08/2024: yesterday HD filtration only, platelets trending down, Dc linezolid, start vancomycin, start low dose propofol, levophed off, still on vasopresin, pending dialysis today again, GI ok with NG tube, minimal vent settings (fio2 40%) Objective vital signs Vital Sign Date Time Temp Pulse Resp B/P (MAP) Pulse Ox O2 Delivery O2 Flow Rate FiO2 07/08/24 09:01 127/43 07/08/24 08:08 89 30 96 40 07/08/24 06:30 Mechanical Ventilator+ 07/08/24 04:52 98.0 98.0 07/07/24 10:00 0 Total Intake and Output 07/07/24 07/07/24 07/08/24 15:00 23:00 07:00 Intake Total 500.50 ml 1726.25 ml 1845.75 ml Output Total 0 ml Balance 500.50 ml 1726.25 ml 1845.75 ml medications Current Medications Medications Dose Ordered Sig/Erik Route Start Time Stop Time Status Last Admin Dose Admin Ondansetron HCl 4 mg Q4HP PRN IV 07/01/24 02:45 Midodrine 10 mg TID@0600,1200,1800 PO 07/01/24 06:00 07/07/24 04:31 10 MG Linezolid 300 ml @ 150 mls/hr Q12HR@0800,2000 IV 07/01/24 08:00 07/08/24 08:52 150 MLS/HR Lorazepam 1 mg Q5MINP PRN IV 07/02/24 07:15 07/08/24 01:01 1 MG Thiamine HCl 100 mg DAILY PO 07/03/24 10:00 Bumetanide 1 mg BIDD IV 07/04/24 10:00 07/08/24 06:01 1 MG Haloperidol Lactate 5 mg Q8HP PRN IM 07/04/24 00:00 07/05/24 22:48 5 MG Rocuronium [place] 50 mg ONCE PRN IV 07/07/24 09:45 Norepinephrine Bitartrate 250 ml @ 3.75 mls/hr Q24H IV 07/07/24 09:30 07/07/24 23:22 11.25 MLS/HR Phenylephrine HCl 250 ml @ 30 mls/hr Q8H20M IV 07/07/24 09:30 Fentanyl Citrate 250 ml @ 2.5 mls/hr Q24H IV 07/07/24 09:30 07/08/24 09:01 35 MLS/HR Zirconium Oxide 10 gm TID PO 07/07/24 14:00 07/09/24 06:01 Hydrocortisone Sodium Succinate 50 mg Q6HR IV 07/07/24 12:00 07/08/24 06:13 50 MG Meropenem 50 ml @ 17 mls/hr DAILY IV 07/08/24 10:00 Vasopressin 20 units/Sodium Chloride 100 ml @ 9 mls/hr Q11H7M IV 07/07/24 12:30 07/08/24 02:14 12 MLS/HR Sodium Bicarbonate 150 ml/Dextrose 1,150 ml @ 100 mls/hr [id number] IV 07/07/24 15:30 07/08/24 06:40 100 MLS/HR Albumin Human 100 ml @ 100 mls/hr PRN PRN IV 07/07/24 16:30 07/09/24 17:29 Pantoprazole Sodium 50 ml @ 10 mls/hr Q5H IV 07/07/24 17:15 07/08/24 04:43 10 MLS/HR Octreotide Acetate 500 mcg/ Sodium Chloride 100 ml @ 10 mls/hr Q10H IV 07/07/24 17:15 07/08/24 03:13 10 MLS/HR Lactulose 300 ml Q6HR OR 07/08/24 00:00 07/08/24 06:01 300 ML Lorazepam 1 mg Q5MINP PRN IV 07/08/24 00:00 Examination General Appearance: intubated HEENT: pupils were dilatetd 6mm am, anisocoria, bleeding through the mouth Respiratory: left IJ cath right HD cath Clear to auscultation, Normal air movement Cardiovascular: Regular rate, Normal S1, Normal S2, No murmurs, no chest wall tenderness Abdominal: more distention today Extremities: No clubbing, No cyanosis, No edema, Normal pulses, Skin: Generalized yellow discoloration of skin, petechial/purpuric lesion and upper limb laboratory and microbiology Laboratory Tests 07/08/24 03:20 Test 07/08/24 03:20 Range/Units Serum Glucose 253 #H 74-106 mg/dL Microbiology Date/Time Source Procedure Growth Status 07/01/24 17:21 Voided Urine Urine Culture - Final Enterococcus faecium Complete 07/01/24 08:53 Ascities Fluid Gram Stain - Final Complete 07/01/24 08:53 Ascities Fluid Body Fluid Culture - Final Complete 06/30/24 21:52 Blood Blood Culture - Final NO GROWTH AFTER 5 DAYS OF INCUBATION. Complete Problem List/Assessment/Plan Problem List/Assessment/Plan Neurology #Acute metabolic encephalopathy due to hepatic and uremic encephalopathy #GCS deterioration requiring intubation Intubated. Currently sedated with fentanyl drip 300 mcg/hr. Neurology consulted: pending EEG Cardiology #Shock, likely multifactorial septic, hypovolemic Levophed off Vasopressin at 0.04 U/min Central line and A line placed. Trend lactate and MAP Pulmonary #Acute hypoxic respiratory failure requiring mechanical ventilation #Vent dependent, intubated Vent settings: PEEP 5, TV 450, RR 30, FiO2 40%. ABG: pH 7.36 / CO2 56 / O2 104. Continue ventilator support, monitor ABGs. Hematology #Severe anemia, likely due to GI bleeding Hgb 7.1, received FFP and PRBCs. Monitor daily CBC. Continue PPI drip. GI consulted, concern for possible esophageal varices. #Thrombocytopenia due to liver failure 38 today Infectious Disease #Septic shock, likely secondary to VRE UTI and spontaneous bacterial peritonitis Urine culture positive for VRE, blood culture no growth x5 days. On Meropenem+ vancomycin Continue dual coverage. #SBP Paracentesis: 7L removed, high WBC in ascitic fluid. Octreotide and antibiotics ongoing. No paracentesis today, platelets are very low GI/Hepatology #Liver cirrhosis secondary to alcohol use #Massive ascites #Possible esophageal varices #Upper GI bleed, unspecified location GI consulted. Octreotide drip, PPI drip, PRBCs transfused. Vitamin K administered. Continue octreotide, PPI. Trend Hgb. Monitor for rebleeding. Dr Stahl is ok on NG tube to start feedings lactulose rectal Renal #CLIFFORD on CKD, likely multifactorial: uremia, hypotension, sepsis #Hyperkalemia #Uremic encephalopathy #Emergency dialysis CVVH initiated Potassium was 6.3 in the morning; dropped to 4.1 post-dialysis. Jordan catheter placed. HD initiated for filtration only, no fluid removed. Bicarbonate 150 meq + d5w drip dc durham catheter Endocrinology #Hypoglycemia Severe hypoglycemia at time of rapid response (glucose 16). Now stable. Monitor glucose q6h. d5w + bicarbonate 100 cc/h Nutrition #Severe malnutrition NG tube, start enteral feedings Code Status: full code Poor prognosis discussed with sister (POA). Lines/Support Intubated Central line A-line [place] catheter [place] catheter On Levophed, Vasopressin Sedated with fentanyl drip Octreotide and PPI drips Prophylaxis and Orders DVT: No anticoagulation due to active bleeding GI: PPI drip (Protonix) Bowel: Lactulose Case discussed with Dr Interiano Plan discussed with: Patient, Other (rn) My Orders My Orders Orders - AUDRA CRANDALL RESIDENT Procedure Category Date Status Time Norepinephrine 8 PHA 07/07/24 In Process Mg/250ml Kit 09:30 Phenylephrine Iv PHA 07/07/24 In Process (Phenylephrine/Ns) 09:30 Fentanyl Drip PHA 07/07/24 In Process 2500mcg/250mlns 09:30 Ventilator Orders RT 07/07/24 Transmitted 09:26 Respiratory Culture SHASTA 07/07/24 In Process W/ Gs 09:26 Abg W/ Co-Ox RT 07/07/24 Logged 10:30 Ventilator Orders RT 07/07/24 Transmitted 10:09 * Neurology Consult CONS 07/07/24 Transmitted 10:50 *Consult CONS 07/07/24 Transmitted / 11:12 Ventilator Orders RT 07/07/24 Transmitted 11:10 Mrsa Screen SHASTA 07/07/24 In Process 09:49 Abg W/ Co-Ox RT 07/07/24 Logged 13:00 D5w 5% (Dextrose 5%) PHA 07/07/24 In Process W/Sodium Bicarb 50m 15:30 Communication Order ORDERS 07/07/24 Transmitted 15:29 Pantoprazole PHA 07/07/24 In Process 40mg/50ml Ns Ae 17:15 Sodium Chl 0.9% PHA 07/07/24 In Process (So... W/Octreotide 17:15 Communication Order ORDERS 07/07/24 Transmitted 16:30 Chest Xray 1 View XY 07/08/24 Resulted 04:00 Abg W/ Co-Ox RT 07/08/24 Logged 04:00 Dietary Evaluation Review Comments: 1) Consider EN/PN if NPO>7 days 2) advance diet to renal specific 40gm if medically feasible 3) Continue current plan of care Expected Outcomes/Goals: Pt will meet >75% estimated needs Fu 2-3 days CC Plasma Assessment Blood Product Administration S: [id number] Date of Service: Jul 08, 2024 Billing Provider: ASHLEY INTERIANO MD Common Visit Codes: [id number] INP/OBS CARE(HIGH) AUDRA CRANDALL RESIDENT Jul 08, 2024 09:19 ASHLEY INTERIANO MD Jul 14, 2024 21:16
[2024-07-08] MEDS ORDERED: VANCOMYCIN PER PHARMACY 0 MG IV SCH (09:30)
[2024-07-08] MEDS: PROPOFOL 100 ML IV SCH (10:00)
[2024-07-08] MEDS: VANCOMYCIN 1.25GM/250ML 250 ML IV ONE (11:23)
--- NOTE | 2024-07-08 12:05 | DVHPN2 ---
Progress Note Date Seen: Jul 08, 2024 Has the PT tested + for MRSA If YES, has PT been informed?: No Medical Necessity Reason Pt with a Central, PICC or Fol: Yes Subjective Review of Systems: RESPIRATORY:Abnormal Other Systems: Patient seen and examined by myself today in follow-up, patient remained intubated on ventilator Objective vital signs Vital Sign Date Time Temp Pulse Resp B/P (MAP) Pulse Ox O2 Delivery O2 Flow Rate FiO2 07/08/24 11:15 87 26 119/40 (66) 97 119/50 (73) 07/08/24 10:33 40 07/08/24 10:30 Mechanical Ventilator+ 07/08/24 08:00 97.6 97.6 07/07/24 10:00 0 Total Intake and Output 07/07/24 07/07/24 07/08/24 15:00 23:00 07:00 Intake Total 500.50 ml 1726.25 ml 2012.75 ml Output Total 0 ml Balance 500.50 ml 1726.25 ml 2012.75 ml medications Current Medications Medications Dose Ordered Sig/Erik Route Start Time Stop Time Status Last Admin Dose Admin Ondansetron HCl 4 mg Q4HP PRN IV 07/01/24 02:45 Midodrine 10 mg TID@0600,1200,1800 PO 07/01/24 06:00 07/07/24 04:31 10 MG Thiamine HCl 100 mg DAILY PO 07/03/24 10:00 Bumetanide 1 mg BIDD IV 07/04/24 10:00 07/08/24 06:01 1 MG Haloperidol Lactate 5 mg Q8HP PRN IM 07/04/24 00:00 07/05/24 22:48 5 MG Rocuronium [place] 50 mg ONCE PRN IV 07/07/24 09:45 Norepinephrine Bitartrate 250 ml @ 3.75 mls/hr Q24H IV 07/07/24 09:30 07/07/24 23:22 11.25 MLS/HR Phenylephrine HCl 250 ml @ 30 mls/hr Q8H20M IV 07/07/24 09:30 Fentanyl Citrate 250 ml @ 2.5 mls/hr Q24H IV 07/07/24 09:30 07/08/24 09:01 35 MLS/HR Zirconium Oxide 10 gm TID PO 07/07/24 14:00 07/09/24 06:01 Hydrocortisone Sodium Succinate 50 mg Q6HR IV 07/07/24 12:00 07/08/24 06:13 50 MG Meropenem 50 ml @ 17 mls/hr DAILY IV 07/08/24 10:00 Vasopressin 20 units/Sodium Chloride 100 ml @ 9 mls/hr Q11H7M IV 07/07/24 12:30 07/08/24 09:44 12 MLS/HR Sodium Bicarbonate 150 ml/Dextrose 1,150 ml @ 100 mls/hr [id number] IV 07/07/24 15:30 07/08/24 06:40 100 MLS/HR Albumin Human 100 ml @ 100 mls/hr PRN PRN IV 07/07/24 16:30 07/09/24 17:29 Pantoprazole Sodium 50 ml @ 10 mls/hr Q5H IV 07/07/24 17:15 07/08/24 09:38 10 MLS/HR Octreotide Acetate 500 mcg/ Sodium Chloride 100 ml @ 10 mls/hr Q10H IV 07/07/24 17:15 07/08/24 03:13 10 MLS/HR Lactulose 300 ml Q6HR UT 07/08/24 00:00 07/08/24 06:01 300 ML Lorazepam 1 mg Q5MINP PRN IV 07/08/24 00:00 Vancomycin HCl 0 ml @ 0 mls/hr UD IV 07/08/24 09:30 Propofol 100 ml @ 2.775 mls/ hr Q24H IV 07/08/24 10:00 Examination: LUNGS:Normal, CVS:Normal, MSK:Normal laboratory and microbiology Laboratory Tests 07/08/24 03:20 Test 07/08/24 03:20 Range/Units Serum Glucose 253 #H 74-106 mg/dL Microbiology Date/Time Source Procedure Growth Status 07/07/24 09:58 Trachea Gram Stain - Final Resulted 07/07/24 09:58 Trachea Respiratory Culture - Preliminary Resulted 07/01/24 17:21 Voided Urine Urine Culture - Final Enterococcus faecium Complete 07/01/24 08:53 Ascities Fluid Gram Stain - Final Complete 07/01/24 08:53 Ascities Fluid Body Fluid Culture - Final Complete 06/30/24 21:52 Blood Blood Culture - Final NO GROWTH AFTER 5 DAYS OF INCUBATION. Complete Problem List/Assessment/Plan Problem List/Assessment/Plan Acute kidney injury----ATN in the setting of hypotension/ blood loss, anuric requiring initiation of intermittent hemodialysis Acute respiratory failure, patient intubated on ventilator GI bleeding Septic shock Lactic acidosis Hyperkalemia Hepatic encephalopathy Decompensated liver cirrhosis status post paracentesis Chronic alcoholism Hypoglycemia Recommendations Hemodialysis tomorrow use no heparin Epogen 69029 subQ with hemodialysis Albumin 25% p.r.n. hemodialysis Hyperkalemia resolved Ho catheter Strict I&Os DC IV fluid IV antibiotics IV pressor for blood pressure support Maintain map greater than 65 Packed red blood cell transfusion p.r.n. We will continue to follow Plan discussed with: Other (Nurse) My Orders My Orders Orders - CHARLIE HALE MD Procedure Category Date Status Time Dextrose 10% PHA 07/07/24 In Process 12:15 Communication Order ORDERS 07/07/24 Transmitted 12:10 Sodium Chl 0.9% PHA 07/07/24 In Process (So... W/Vasopressin 12:30 Document Fluid Input NILTON 07/08/24 In Process And Outpu 07:00 Epoetin Rolo-Epbx PHA 07/08/24 In Process (Retacrit) 21:00 Albumin 25% (Albutein) PHA 07/07/24 In Process 16:30 Hemodialysis Orders ORDERS 07/09/24 Transmitted 07:00 Dietary Evaluation Review Comments: 1) Consider EN/PN if NPO>7 days 2) advance diet to renal specific 40gm if medically feasible 3) Continue current plan of care Expected Outcomes/Goals: Pt will meet >75% estimated needs Fu 2-3 days CC Plasma Assessment Blood Product Administration S: [id number] CHARLIE HALE MD Jul 08, 2024 12:05
[2024-07-08] MEDS: MEROPENEM 500MG IVPB 50 ML IV SCH (12:58)
[2024-07-08] MEDS: ALBUMIN 25% 100 ML IV SCH (14:00)
--- NOTE | 2024-07-08 20:00 | DVHPN2 ---
Progress Note - Dictate Date Seen: Jul 08, 2024 Has the PT tested + for MRSA If YES, has PT been informed?: No Medical Necessity Reason Pt with a Central, PICC or Fol: Yes The following are medically ne: [place] Catheter Reason for durham catheter: Strict I&O Subjective Patient seen and examined at bedside. Intubated on mechanical ventilator. Overnight events reviewed. vital signs Vital Sign Date Time Temp Pulse Resp B/P (MAP) Pulse Ox O2 Delivery O2 Flow Rate FiO2 07/08/24 18:01 125/43 07/08/24 17:45 82 30 97 07/08/24 16:20 40 07/08/24 16:03 Mechanical Ventilator+ 07/08/24 16:00 97.8 97.8 07/07/24 10:00 0 Total Intake and Output 07/07/24 07/07/24 07/08/24 15:00 23:00 07:00 Intake Total 500.50 ml 1726.25 ml 2012.75 ml Output Total 0 ml Balance 500.50 ml 1726.25 ml 2012.75 ml medications Current Medications Medications Dose Ordered Sig/Erik Route Start Time Stop Time Status Last Admin Dose Admin Ondansetron HCl 4 mg Q4HP PRN IV 07/01/24 02:45 Midodrine 10 mg TID@0600,1200,1800 PO 07/01/24 06:00 07/08/24 18:10 10 MG Thiamine HCl 100 mg DAILY PO 07/03/24 10:00 Haloperidol Lactate 5 mg Q8HP PRN IM 07/04/24 00:00 07/05/24 22:48 5 MG Rocuronium [place] 50 mg ONCE PRN IV 07/07/24 09:45 Norepinephrine Bitartrate 250 ml @ 3.75 mls/hr Q24H IV 07/07/24 09:30 07/07/24 23:22 11.25 MLS/HR Phenylephrine HCl 250 ml @ 30 mls/hr Q8H20M IV 07/07/24 09:30 Fentanyl Citrate 250 ml @ 2.5 mls/hr Q24H IV 07/07/24 09:30 07/08/24 16:11 35 MLS/HR Zirconium Oxide 10 gm TID PO 07/07/24 14:00 07/09/24 06:01 Hydrocortisone Sodium Succinate 50 mg Q6HR IV 07/07/24 12:00 4/9/25 18:10 50 MG Meropenem 50 ml @ 17 mls/hr DAILY IV 07/08/24 10:00 07/08/24 12:58 17 MLS/HR Vasopressin 20 units/Sodium Chloride 100 ml @ 9 mls/hr Q11H7M IV 07/07/24 12:30 07/08/24 18:01 12 MLS/HR Albumin Human 100 ml @ 100 mls/hr PRN PRN IV 07/07/24 16:30 07/09/24 17:29 Pantoprazole Sodium 50 ml @ 10 mls/hr Q5H IV 07/07/24 17:15 07/08/24 19:19 10 MLS/HR Octreotide Acetate 500 mcg/ Sodium Chloride 100 ml @ 10 mls/hr Q10H IV 07/07/24 17:15 07/08/24 13:14 10 MLS/HR Lactulose 300 ml Q6HR [place] 07/08/24 00:00 07/08/24 06:01 300 ML Lorazepam 1 mg Q5MINP PRN IV 07/08/24 00:00 Vancomycin HCl 0 ml @ 0 mls/hr UD IV 07/08/24 09:30 Propofol 100 ml @ 2.775 mls/ hr Q24H IV 07/08/24 10:00 Albumin Human 100 ml @ 100 mls/hr Q8H IV 07/08/24 14:00 07/09/24 06:59 objective Gen.: Patient lying in bed in medical ICU. Intubated on mechanical ventilator. Head: Normocephalic, atraumatic. Eyes: PERRLA. Ears: Normal external anatomy. Throat: Endotracheal tube and orogastric tube in place. Neck: Supple, trachea midline. Chest: Transmitted breath sounds bilaterally. Decreased air entry bilaterally. No wheezing. Bibasilar crackles. Cardiovascular: Positive S1, positive S2. Regular rate and rhythm. Abdomen: Positive bowel sounds in all 4 quadrants. Soft, nontender, nondistended. : [place] in place. Normal external genitalia. Rectal: Deferred. Skin: Warm, dry. Intact. Extremities: 2+ radial pulses bilaterally. No lower extremity edema. Neuro: Off sedation laboratory and microbiology Laboratory Tests 07/08/24 03:20 Test 07/08/24 03:20 Range/Units Serum Glucose 253 #H 74-106 mg/dL Assessment/Plan Impression: Acute hypercarbic respiratory failure On mechanical ventilator Acute metabolic encephalopathy Shock Liver cirrhosis Hx of ETOH abuse Events: Remains on vent support On AC mode; RR 30, VT 450, PEEP 5, FiO2 40% Improved FiO2 requirements Off sedation On Fentanyl for analgesia On pressors for hemodynamic support On vasopressin 0.04 units/min Titrate to keep mean arterial pressure greater than 65 mmHg. Off Levophed and Tino-Synephrine Monitor hemodynamics Continue midodrine Continue antibiotics - vancomycin Continue IV steroids Continue Octreotide, Protonix drip GI recs appreciated Monitor hemoglobin NGT in place. ABG shows pH 7.362, pCO2 56.5, pO2 104.7, bicarb 31.3, ABG compensated IV fluids at 100 ml/hr. Monitor renal function Monitor electrolytes. Supplement as necessary. CXR image and report reviewed. Left basilar atelectasis or pneumonia..Devices in place. Labs and imaging reviewed. Rest of plan as noted below. Plan: s/p intubation on mechanical ventilator. On AC mode; RR 30, VT 450, PEEP 5, FiO2 40% Titrate FIO2 to keep O2 saturation above 90%. VAP bundle. Daily ABG and CXR while intubated Off sedation Continue antibiotics. Octreotide drip Protonix drip GI recommendations appreciated On pressors for hemodynamic support Titrate to keep mean arterial pressure greater than 65 mmHg. IV fluid hydration Accu-Cheks, ISS PRN. Diurese as tolerated w/ Bumex Monitor renal function Monitor electrolytes. Supplement as necessary. Monitor ins and outs. Maintain euvolemia. GI prophylaxis. DVT prophylaxis. Prognosis: Poor given patient's multiple co-morbidities. Condition: Critical Rest of plan per hospitalist and other consultants. A total of 35 minutes of critical care time was spent reviewing the patient record, examining the patient, making a diagnostic and therapeutic plan, discussing this plan with the medical personnel, following up on diagnostic studies and following the patient for clinical stability excluding any and all procedures. At least 50% of this time was spent in direct, [id number] contact. Thank you Dr. Ovalle for allowing me to participate in this patient's care. Further recommendations will depend on the patient's clinical course. Please do not hesitate to contact me if you have any questions or concerns. This medical document was created using an electronic medical record system with [employer] dictation system. Although these documentations are being carefully reviewed, there may still be some phonetic and typographical changes. The errors are purely typographical, due to imperfection on the software program, and do not reflect any compromise in the patient's medical care. Dietary Evaluation Review Comments: 1) Consider EN/PN if NPO>7 days 2) advance diet to renal specific 40gm if medically feasible 3) Continue current plan of care Expected Outcomes/Goals: Pt will meet >75% estimated needs Fu 2-3 days Plan discussed with: Other (CLIVE Vogel) Critical Care Time(min): 35 CC Plasma Assessment Blood Product Administration S: [id number] JOAQUÍN VILLAFANA MD Jul 08, 2024 20:00
[2024-07-08 21:00] LABS: Basophils # (auto) 0 10 ^3/uL (0-0.2); Eosinophils # (auto) 0 10 ^3/uL (0-0.8); Hemoglobin 7.2 g/dL (13.5-17.5); Lymphocytes # (auto) 0.7 10 ^3/uL (0.4-5.4); Monocytes # (auto) 0.3 10 ^3/uL (0-1.3)
[2024-07-08] MEDS: EPOETIN ALFA-EPBX 10,000 UNIT/1ML VIAL SC ONE (21:00)
[2024-07-08 21:02] LABS: Basophils % (auto) 0.2 % (0.0-2.0); Hematocrit 21.2 % (41.0-53.0); Lymphocytes % (auto) 3.7 % (10.0-50.0); Mean Corpuscular Hemoglobin 31.6 pg (28.0-32.0); Mean Corpuscular Volume 92.8 fL (80.0-100.0); Monocytes % (auto) 1.7 % (0.0-12.0); Neutrophils # (auto) 19.2 10 ^3/uL (1.6-8.6); Neutrophils % (auto) 94.4 % (37.0-80.0); Red Blood Cells 2.28 10^6/uL (4.5-5.90); Red Cell Distribution Width 16.4 % (11.8-14.3); White Blood Cell 20.3 10^3/uL (4.4-10.8)
[2024-07-08 21:03] LABS: Platelet Count (auto) 29 10^3/uL (140-450)
[2024-07-08 21:09] LABS: Potassium 3.6 mmol/L (3.5-5.1); Sodium 138 mmol/L (136-145)
[2024-07-08 21:10] LABS: Anion Gap 15 (5-15); Calcium 9.7 mg/dL (8.7-10.4)
[2024-07-08 21:19] LABS: BUN/Creatinine Ratio 13.3 (10.0-20.0)
[2024-07-08 21:20] LABS: Blood Urea Nitrogen 75 mg/dL (9-23); Carbon Dioxide 32 mmol/L (20-31); Chloride 91 mmol/L (98-107); Glucose 263 mg/dL (74-106)
--- NOTE | 2024-07-08 23:00 | DVHPN2 ---
Progress Note - Dictate Date Seen: Jul 08, 2024 Has the PT tested + for MRSA If YES, has PT been informed?: No Medical Necessity Reason Pt with a Central, PICC or Fol: Yes The following are medically ne: [place] Catheter Reason for durham catheter: Strict I&O Subjective Patient seen in ICU 104 Patient has had some blood tinged output from his G-tube less than 200 mL His H&H did drop down to 6.6 yesterday and he received 1 unit PRBC This morning his hemoglobin is 7.1. Patient underwent dialysis today but no fluid was removed S/P paracentesis with removal of 7 L of fluid Fluid cell count high suggestive of spontaneous bacterial peritonitis Patient has been started on IV antibiotics vital signs Vital Sign Date Time Temp Pulse Resp B/P (MAP) Pulse Ox O2 Delivery O2 Flow Rate FiO2 07/08/24 22:09 85 30 110/39 (62) 97 40 07/08/24 20:00 96.7 96.7 07/08/24 16:03 Mechanical Ventilator+ 07/07/24 10:00 0 Total Intake and Output 07/07/24 07/07/24 07/08/24 15:00 23:00 07:00 Intake Total 500.50 ml 1726.25 ml 2012.75 ml Output Total 0 ml Balance 500.50 ml 1726.25 ml 2012.75 ml medications Current Medications Medications Dose Ordered Sig/Erik Route Start Time Stop Time Status Last Admin Dose Admin Ondansetron HCl 4 mg Q4HP PRN IV 07/01/24 02:45 Midodrine 10 mg TID@0600,1200,1800 PO 07/01/24 06:00 07/08/24 18:10 10 MG Thiamine HCl 100 mg DAILY PO 07/03/24 10:00 Haloperidol Lactate 5 mg Q8HP PRN IM 07/04/24 00:00 07/05/24 22:48 5 MG Rocuronium [place] 50 mg ONCE PRN IV 07/07/24 09:45 Norepinephrine Bitartrate 250 ml @ 3.75 mls/hr Q24H IV 07/07/24 09:30 07/07/24 23:22 11.25 MLS/HR Phenylephrine HCl 250 ml @ 30 mls/hr Q8H20M IV 07/07/24 09:30 Fentanyl Citrate 250 ml @ 2.5 mls/hr Q24H IV 07/07/24 09:30 07/08/24 16:11 35 MLS/HR Zirconium Oxide 10 gm TID PO 07/07/24 14:00 07/09/24 06:01 Hydrocortisone Sodium Succinate 50 mg Q6HR IV 07/07/24 12:00 07/08/24 18:10 50 MG Meropenem 50 ml @ 17 mls/hr DAILY IV 07/08/24 10:00 07/08/24 12:58 17 MLS/HR Vasopressin 20 units/Sodium Chloride 100 ml @ 9 mls/hr Q11H7M IV 07/07/24 12:30 07/08/24 18:01 12 MLS/HR Albumin Human 100 ml @ 100 mls/hr PRN PRN IV 07/07/24 16:30 07/09/24 17:29 Pantoprazole Sodium 50 ml @ 10 mls/hr Q5H IV 07/07/24 17:15 07/08/24 19:19 10 MLS/HR Octreotide Acetate 500 mcg/ Sodium Chloride 100 ml @ 10 mls/hr Q10H IV 07/07/24 17:15 07/08/24 13:14 10 MLS/HR Lactulose 300 ml Q6HR CO 07/08/24 00:00 07/08/24 06:01 300 ML Lorazepam 1 mg Q5MINP PRN IV 07/08/24 00:00 Vancomycin HCl 0 ml @ 0 mls/hr UD IV 07/08/24 09:30 Propofol 100 ml @ 2.775 mls/ hr Q24H IV 07/08/24 10:00 Albumin Human 100 ml @ 100 mls/hr Q8H IV 07/08/24 14:00 07/09/24 06:59 objective General: intubated sedated; scleral icterus Chest: lung thompson clear to auscultation Heart: RRR, no murmur Abdomen: Qeys-ko-vebbrdtd-distended, no tenderness to palpation, +BS Skin: +jaundice, multiple bruises laboratory and microbiology Laboratory Tests 07/08/24 20:53 Test 07/08/24 20:53 Range/Units Serum Glucose 263 H 74-106 mg/dL Problems(with codes): (1) Icterus (2) Serratia marcescens infection (3) MSSA (methicillin susceptible Staphylococcus aureus) pneumonia (4) Hypotension (5) Acute liver failure (6) GI bleed (7) Anemia, chronic disease (8) Hepatorenal failure (9) Altered mental status (10) Hepatic encephalopathy Prognosis Plan Monitor labs Transfuse 1 unit PRBC if hemoglobin less than seven Start IV iron therapy Patient will be started on Clinimix at 42 mL/hour Once the patient's upper GI bleed is resolved then we will start him on trickle tube feedings Continue Protonix drip at 8 milligrams/hour Patient is still on octreotide drip at 10 mics per hour I will continue to monitor the patient I will be standing by for an endoscopy if urgently required Dietary Evaluation Review Comments: 1) Consider EN/PN if NPO>7 days 2) advance diet to renal specific 40gm if medically feasible 3) Continue current plan of care Expected Outcomes/Goals: Pt will meet >75% estimated needs Fu 2-3 days Plan discussed with: Other (ICU Nurse hBavani) CC Plasma Assessment Blood Product Administration S: [id number] SHANTAL BILLS MD Jul 08, 2024 23:00
[2024-07-09] VITALS (116 sets, daily range): BP systolic 95–204; BP diastolic 33–99; PULSE 74–88; RESP 12–31; TEMP 97.7–98.9; O2SAT 91–99
--- NOTE | 2024-07-09 01:19 | DVHEEG2 ---
Neurology EEG Procedural Note Procedural Note EXAM DATE: 07/08/24 REFERRING DOCTOR: Dr. Arias TECHNIQUE: Eighteen channels of EEG, 2 channels of EOG, and 1 channel of EKG were recorded using the International 10/20 system. CLINICAL DATA: The patient was referred for an EEG evaluation for the evidence of seizure disorder. MEDICATIONS: See chart BACKGROUND ACTIVITY: There was significant amount of electrode artifacts in the recording. The record showed low-amplitude [id number] amount of mixed delta theta activity over both hemispheres, that was slightly reactive to external stimuli ACTIVATION: Hyperventilation: Not done Photic Stimulation: Not done Sleep: Nonresponsiveness IMPRESSION: This is a mildly to moderately abnormal EEG. This EEG seen in mild to moderate cerebral dysfunction due to metabolic/hypoxic encephalopathy or medication effect, please correlate clinically. The EKG channel showed a regular heart rate of 84 per minute [place] [address] ERIC ARIAS MD Jul 09, 2024 01:19
[2024-07-09 03:59] LABS: Basophils # (auto) 0 10 ^3/uL (0-0.2); Basophils % (auto) 0.1 % (0.0-2.0); Eosinophils # (auto) 0 10 ^3/uL (0-0.8); Monocytes # (auto) 0.4 10 ^3/uL (0-1.3)
[2024-07-09 04:02] LABS: Hematocrit 19.2 % (41.0-53.0); Lymphocytes # (auto) 0.8 10 ^3/uL (0.4-5.4); Lymphocytes % (auto) 4.5 % (10.0-50.0); Mean Corpuscular Hemoglobin 32.3 pg (28.0-32.0); Mean Corpuscular Hgb Conc. 35.2 g/dL (32.0-36.0); Mean Corpuscular Volume 91.7 fL (80.0-100.0); Neutrophils # (auto) 16.9 10 ^3/uL (1.6-8.6); Neutrophils % (auto) 93.4 % (37.0-80.0); Nucleated Red Blood Cells % 0.1 %; Platelet Count (auto) 24 10^3/uL (140-450); Red Blood Cells 2.09 10^6/uL (4.5-5.90); Red Cell Distribution Width 16.2 % (11.8-14.3); White Blood Cell 18.1 10^3/uL (4.4-10.8)
[2024-07-09 04:05] LABS: Hemoglobin 6.8 g/dL (13.5-17.5)
[2024-07-09 04:33] LABS: Alanine Aminotransferase 138 U/L (7-40); Albumin 2.9 g/dL (3.2-4.8); Alkaline Phosphatase 68 U/L (46-116); Anion Gap 16 (5-15); Aspartate Aminotransferase 332 U/L (13-40); Bilirubin, Total 19.8 mg/dL (0.2-1.0); Blood Urea Nitrogen 79 mg/dL (9-23); Calcium 9.5 mg/dL (8.7-10.4); Carbon Dioxide 31 mmol/L (20-31); Chloride 91 mmol/L (98-107); Glucose 216 mg/dL (74-106); Magnesium 2.1 mg/dL (1.6-2.6); Phosphorus 8.4 mg/dL (2.4-5.1); Potassium 3.8 mmol/L (3.5-5.1); Sodium 138 mmol/L (136-145); Total Protein 5.1 g/dL (5.7-8.2)
[2024-07-09 04:41] LABS: INR 1.93 (0.9-1.15); Partial Thromboplastin Time 51.4 SEC (24.5-34.5); Prothrombin Time 19.2 sec (9.3-11.8)
[2024-07-09 05:08] LABS: BUN/Creatinine Ratio 13.3 (10.0-20.0)
--- NOTE | 2024-07-09 05:40 | DVH ---
EXAM: XR Chest, 1 View CLINICAL INDICATION: intubated TECHNIQUE: Frontal view of the chest. COMPARISON: XY CHEST XRAY 1 VIEW on DOS: 07/08/24, XY CHEST XRAY 1 VIEW on DOS: 07/07/24, XY CHEST XRAY 1 VIEW on DOS: 07/07/24, XY CHEST PORTABLE on DOS: 07/07/24, XY CHEST PORTABLE on DOS: 06/30/24 FINDINGS: LUNGS AND PLEURAL SPACES: Bibasilar atelectasis or pneumonia. HEART: Cardiomegaly with mild congestion. MEDIASTINUM: Unremarkable. Normal mediastinal contour. BONES/JOINTS: Unremarkable. No acute fracture. TUBES, LINES AND DEVICES: Stable tubes and lines. OTHER FINDINGS: . . IMPRESSION: 1. Bibasilar atelectasis or pneumonia. 2. Cardiomegaly with mild congestion.
[2024-07-09 06:20] LABS: Base Excess 7.3 mmol/L (-2.0-3.0)
--- NOTE | 2024-07-09 09:03 | DVHPNRES ---
Progress Note Date Seen: Jul 09, 2024 Resident Creating Document: AUDRA CRANDALL RESIDENT Has the PT tested + for MRSA If YES, has PT been informed?: No Medical Necessity Reason Pt with a Central, PICC or Fol: Yes The following are medically ne: [place] Catheter Reason for durham catheter: Strict I&O Subjective Review of Systems A 53-year-old male with past medical history of liver cirrhosis (due to alcohol use disorder)and CKD brought to the hospital due to altered mental status. Family were called, but the didnt answer, all the info was taken to the medical records Per EMS reports patient was taken from home and per family member he has been altered since 1 week which has progressively worsened. He was admitted on 10/31/2020 and DVT H due to GI bleeding, EGD was performed, showed gastritis with no active bleeding. PMHx: Liver cirrhosis due to alcohol use disorder, CKD Social history: Has history of alcohol use disorder 07/01/2024: paracentesis done 7LT, multiple wbc in the ascitic fluid, labile BPs, midodrine and octeotride started, zosyn and linezolid due to sepsis and possible SBP, start levophed if MAP below 60, fluids were given, protonix BID 07/02/2024: renal function is declining, hb is stable, FOB neg, protonix drip started, bumex drip started 07/06/2024: urine culture positive for enterococcus, patient is on zosyn and linezolid, hyperkalemia 5.8 07/07/2024: At around 9 a.m., patient was found gasping for air with MAP of 53. Rapid response was called. Mental status deteriorated (GCS drop), requiring intubation. Central line and Jordan catheter were placed. Started on vasopressors: Levophed up to 30 mcg/min and Vasopressin 0.04 U/min. Emergent dialysis was initiated due to uremia and hyperkalemia (K 6.3, later improved to 4.1). ABG showed compensated respiratory status. Patient was found to be hypoglycemic (glucose 16) during event. He is now sedated on fentanyl drip. Labs showed Hgb 6.6likely due to GI bleed; received blood products, Vitamin K, and PPI drip. Prognosis remains poor, and case was re-discussed with family; full code until now 07/08/2024: yesterday HD filtration only, platelets trending down, Dc linezolid, start vancomycin, start low dose propofol, levophed off, still on vasopressin, , GI ok with NG tube, minimal vent settings (fio2 40%) 07/09/2024: 1 apheresis and 1 rbc given, still bloody secretions from mouth, albumin and bumex given, clinimix started by GI, min vent settings, still on vasopressin, octreotide and protonix drip, HD today 53-year-old male with liver cirrhosis due to alcohol use and CKD presented with altered mental status, found to have urosepsis, SBP and possible GI bleeding. He developed sepsis, worsening renal function, and required dialysis for uremia and hyperkalemia. Rapid deterioration on 07/07 led to intubation, vasopressors, and sedation; prognosis discussed with family. Patient remains critically ill with GI bleeding, and multisystem involvement. He is still on pressors, minimal vent settings, and receiving supportive care including albumin, blood products, and antibiotics (meropenem and vancomycin). Objective vital signs Vital Sign Date Time Temp Pulse Resp B/P (MAP) Pulse Ox O2 Delivery O2 Flow Rate FiO2 07/09/24 08:15 87 27 119/45 (69) 94 112/49 (70) 07/09/24 08:13 30 07/09/24 08:12 Mechanical Ventilator+ 07/09/24 08:00 98.9 98.9 07/07/24 10:00 0 Total Intake and Output 07/08/24 07/08/24 07/09/24 15:00 23:00 07:00 Intake Total 870 ml 541 ml 1017 ml Output Total 900 ml 175 ml Balance 870 ml -359 ml 842 ml medications Current Medications Medications Dose Ordered Sig/Erik Route Start Time Stop Time Status Last Admin Dose Admin Ondansetron HCl 4 mg Q4HP PRN IV 07/01/24 02:45 Midodrine 10 mg TID@0600,1200,1800 PO 07/01/24 06:00 07/08/24 18:10 10 MG Thiamine HCl 100 mg DAILY PO 07/03/24 10:00 Haloperidol Lactate 5 mg Q8HP PRN IM 07/04/24 00:00 07/05/24 22:48 5 MG Rocuronium [place] 50 mg ONCE PRN IV 07/07/24 09:45 Norepinephrine Bitartrate 250 ml @ 3.75 mls/hr Q24H IV 07/07/24 09:30 07/07/24 23:22 11.25 MLS/HR Phenylephrine HCl 250 ml @ 30 mls/hr Q8H20M IV 07/07/24 09:30 Fentanyl Citrate 250 ml @ 2.5 mls/hr Q24H IV 07/07/24 09:30 07/09/24 06:46 35 MLS/HR Hydrocortisone Sodium Succinate 50 mg Q6HR IV 07/07/24 12:00 07/09/24 06:34 50 MG Meropenem 50 ml @ 17 mls/hr DAILY IV 07/08/24 10:00 07/09/24 07:52 17 MLS/HR Vasopressin 20 units/Sodium Chloride 100 ml @ 9 mls/hr Q11H7M IV 07/07/24 12:30 07/09/24 02:10 12 MLS/HR Albumin Human 100 ml @ 100 mls/hr PRN PRN IV 07/07/24 16:30 07/09/24 17:29 Pantoprazole Sodium 50 ml @ 10 mls/hr Q5H IV 07/07/24 17:15 07/09/24 07:53 10 MLS/HR Octreotide Acetate 500 mcg/ Sodium Chloride 100 ml @ 10 mls/hr Q10H IV 07/07/24 17:15 07/09/24 07:53 10 MLS/HR Lactulose 300 ml Q6HR [place] 07/08/24 00:00 07/08/24 06:01 300 ML Lorazepam 1 mg Q5MINP PRN IV 07/08/24 00:00 Vancomycin HCl 0 ml @ 0 mls/hr UD IV 07/08/24 09:30 Propofol 100 ml @ 2.775 mls/ hr Q24H IV 07/08/24 10:00 Albumin Human 100 ml @ 100 mls/hr Q8H IV 07/09/24 08:45 07/10/24 01:44 Examination General Appearance: intubated HEENT: pupils were dilatetd 6mm am, anisocoria, bleeding through the mouth Respiratory: left IJ cath right HD cath Clear to auscultation, Normal air movement Cardiovascular: Regular rate, Normal S1, Normal S2, No murmurs, no chest wall tenderness Abdominal: more distention today Extremities: No clubbing, No cyanosis, No edema, Normal pulses, Skin: Generalized yellow discoloration of skin, petechial/purpuric lesion and upper limb laboratory and microbiology Laboratory Tests 07/09/24 03:25 Test 07/09/24 03:25 Range/Units Serum Glucose 216 H 74-106 mg/dL Microbiology Date/Time Source Procedure Growth Status 07/07/24 09:58 Trachea Gram Stain - Final Resulted 07/07/24 09:58 Trachea Respiratory Culture - Preliminary Resulted 07/01/24 17:21 Voided Urine Urine Culture - Final Enterococcus faecium Complete 07/01/24 08:53 Ascities Fluid Gram Stain - Final Complete 07/01/24 08:53 Ascities Fluid Body Fluid Culture - Final Complete 06/30/24 21:52 Blood Blood Culture - Final NO GROWTH AFTER 5 DAYS OF INCUBATION. Complete Problem List/Assessment/Plan Problem List/Assessment/Plan Neurology #Acute metabolic encephalopathy due to hepatic and uremic encephalopathy #GCS deterioration requiring intubation Intubated. Currently sedated with fentanyl drip Neurology consulted Cardiology #Shock, likely multifactorial septic, hypovolemic Levophed off Vasopressin at 0.04 U/min Central line and A line placed. Trend lactate and MAP Pulmonary #Acute hypoxic respiratory failure requiring mechanical ventilation #Vent dependent, intubated Vent settings: PEEP 5, TV 450, RR 30, FiO2 30%.Continue ventilator support, monitor ABGs. Hematology #Severe anemia, likely due to GI bleeding Hgb 6.8, received, 1 extra unit of blood today, FFP and PRBCs already given. Monitor daily CBC. Continue PPI drip. GI consulted, concern for possible esophageal varices. #Thrombocytopenia due to liver failure 1 apheresis of platelets given Infectious Disease #Septic shock, likely secondary to UTI and spontaneous bacterial peritonitis Urine culture positive for enterococcus, blood culture no growth x5 days. On Meropenem+ vancomycin Continue dual coverage. #SBP Paracentesis: 7L removed, high WBC in ascitic fluid. Octreotide and antibiotics ongoing. No paracentesis today, platelets are very low GI/Hepatology #Liver cirrhosis secondary to alcohol use #Massive ascites #Possible esophageal varices #Upper GI bleed, unspecified location GI consulted. Octreotide drip, PPI drip, PRBCs transfused. Vitamin K administered. Continue octreotide, PPI. Trend Hgb. Monitor for rebleeding. NG tube lactulose rectal Clinimix Renal #CLIFFORD on CKD, likely multifactorial: uremia, hypotension, sepsis #Hyperkalemia #Uremic encephalopathy #Emergency dialysis CVVH initiated Mild hypokalemia: HD today dc durham catheter Endocrinology #Hypoglycemia Severe hypoglycemia at time of rapid response (glucose 16). Now stable. Monitor glucose q6h. Nutrition #Severe malnutrition Clinimix Code Status: full code Poor prognosis discussed with sister (JALEESA). Lines/Support Intubated Central line A-line Jordan catheter Durham catheter: please dc durham Off Levophed, Vasopressin Sedated with fentanyl drip Octreotide and PPI drips Prophylaxis and Orders DVT: SCD GI: PPI drip (Protonix) Bowel: Lactulose Case discussed with Dr Interiano Plan discussed with: Patient, Other (rn) My Orders My Orders Orders - AUDRA CRANDALL Procedure Category Date Status Time Communication Order ORDERS 07/08/24 Transmitted 10:44 Consult For Nutrition NOURISH 07/08/24 Transmitted 10:44 Abg W/ Co-Ox RT 07/09/24 Logged 04:00 Chest Xray 1 View XY 07/09/24 Resulted 04:00 Sequential NILTON 07/09/24 In Process Compression Device 08:42 Albumin 25% (Albutein) PHA 07/09/24 In Process 08:45 Comprehensive LAB 07/09/24 Logged Metabolic Panel 13:00 Complete Blood Count LAB 07/09/24 Logged 13:00 Dietary Evaluation Review Comments: 1) Consider EN/PN if NPO>7 days 2) advance diet to renal specific 40gm if medically feasible 3) Continue current plan of care Expected Outcomes/Goals: Pt will meet >75% estimated needs Fu 2-3 days CC Plasma Assessment Blood Product Administration S: [id number] Date of Service: Jul 09, 2024 Billing Provider: ASHLEY INTERIANO MD Common Visit Codes: 11829-AUIJYDJT CARE 30-74 MIN AUDRA CRANDALL RESIDENT Jul 09, 2024 09:03 ASHLEY INTERIANO MD Jul 14, 2024 21:38
[2024-07-09] MEDS: ALBUMIN 25% 100 ML IV SCH (10:10)
[2024-07-09] MEDS: BUMETANIDE 1mg/4ml VIAL (0.25mg/ml) IV ONE (10:10)
--- NOTE | 2024-07-09 10:50 | DVHPN2 ---
Progress Note - Dictate Date Seen: Jul 09, 2024 Has the PT tested + for MRSA If YES, has PT been informed?: No Medical Necessity Reason Pt with a Central, PICC or Fol: Yes The following are medically ne: [place] Catheter Reason for durham catheter: Strict I&O Subjective Mr. Juarez is a 53 years old right-handed gentleman with a history of liver failure, liver cirrhosis, alcoholism, prostatic cancer, anxiety, hepatorenal syndrome, he came to the hospital on 06/30/24 because of for a few days. In the hospital, the patient was found to have severe jaundice, liver failure, coagulopathy, urinary tract infection, sepsis, kidney failure. On 07/08/2023, the patient was had code assistance because of hypotension and he was nonresponsive, the patient was resuscitated, intubated and transferred to ICU I saw him on 11/03/2020 for seizure I have seen and examined the patient, he is sedated, but is likely responsive to light touch He had unstable H/H, he received 1 unit of RBC this morning, he was going through hemodialysis Hearing culture, 07/01/2024: Enterococcus faecium Blood culture, 06/30/2024: No growth UDS, 07/01/2024: Negative Plasma alcohol, 06/30/2024: 3.6 Urinalysis, 07/01/2024: WBC: 3958, urine leukocyte esterase: 3+ ABG, 07/07/2024: Combined metabolic and respiratory acidosis, respiratory acidosis WBC/HB/PLT/MCV, 07/07/2024: 19.5/8.2/80/100.9, 07/09/2024: 18. 1/6.8/24/97.7 PT/INR/PTT, 07/07/2024: 27.2/2.85/56.7 K 07/07/2024: 6.3 BUN/CR, 07/07/2024: 88/7.62 TBI/AST/ALT/AP, 07/07/2024: 23.5/263/60/73 Lactic acid, 07/07/2024: 6.9, 4.9 Ammonia, 11/02/2020: 98, 11/03/2020: 109, 95, 11/07/2020: 95, 06/30/2024: 54, 07/03/2024: 11, 07/07/2024: 33 Vitamin B12, 07/01/24: 2308 Folic acid, 07/01/24: 11.87 EEG, : Iiko-pg-qvqxoyryam abnormal EEG Chest x-ray, 07/07/2024: Right basilar opacity. Lines and tubes in appropriate position. CT head, 08/18/2020: No acute intracranial abnormality identified. Mild cerebral volume loss. Cerebral atherosclerosis CT head, 06/30/2024: No acute intracranial abnormality CTA, 11/05/2020: No intracranial hemorrhage vital signs Vital Sign Date Time Temp Pulse Resp B/P (MAP) Pulse Ox O2 Delivery O2 Flow Rate FiO2 07/09/24 10:30 80 30 133/49 (77) 96 114/50 (71) 07/09/24 09:50 30 07/09/24 09:45 97.7 97.7 07/09/24 09:44 Mechanical Ventilator+ 07/07/24 10:00 0 Total Intake and Output 07/08/24 07/08/24 07/09/24 15:00 23:00 07:00 Intake Total 870 ml 541 ml 1017 ml Output Total 900 ml 175 ml Balance 870 ml -359 ml 842 ml medications Current Medications Medications Dose Ordered Sig/Erik Route Start Time Stop Time Status Last Admin Dose Admin Ondansetron HCl 4 mg Q4HP PRN IV 07/01/24 02:45 Midodrine 10 mg TID@0600,1200,1800 PO 07/01/24 06:00 07/08/24 18:10 10 MG Thiamine HCl 100 mg DAILY PO 07/03/24 10:00 Haloperidol Lactate 5 mg Q8HP PRN IM 07/04/24 00:00 07/05/24 22:48 5 MG Rocuronium [place] 50 mg ONCE PRN IV 07/07/24 09:45 Norepinephrine Bitartrate 250 ml @ 3.75 mls/hr Q24H IV 07/07/24 09:30 07/07/24 23:22 11.25 MLS/HR Phenylephrine HCl 250 ml @ 30 mls/hr Q8H20M IV 07/07/24 09:30 Fentanyl Citrate 250 ml @ 2.5 mls/hr Q24H IV 07/07/24 09:30 07/09/24 06:46 35 MLS/HR Hydrocortisone Sodium Succinate 50 mg Q6HR IV 07/07/24 12:00 07/09/24 06:34 50 MG Meropenem 50 ml @ 17 mls/hr DAILY IV 07/08/24 10:00 07/09/24 07:52 17 MLS/HR Vasopressin 20 units/Sodium Chloride 100 ml @ 9 mls/hr Q11H7M IV 07/07/24 12:30 07/09/24 10:11 12 MLS/HR Albumin Human 100 ml @ 100 mls/hr PRN PRN IV 07/07/24 16:30 07/09/24 17:29 Pantoprazole Sodium 50 ml @ 10 mls/hr Q5H IV 07/07/24 17:15 07/09/24 07:53 10 MLS/HR Octreotide Acetate 500 mcg/ Sodium Chloride 100 ml @ 10 mls/hr Q10H IV 07/07/24 17:15 07/09/24 07:53 10 MLS/HR Lactulose 300 ml Q6HR [place] 07/08/24 00:00 07/08/24 06:01 300 ML Lorazepam 1 mg Q5MINP PRN IV 07/08/24 00:00 Vancomycin HCl 0 ml @ 0 mls/hr UD IV 07/08/24 09:30 Propofol 100 ml @ 2.775 mls/ hr Q24H IV 07/08/24 10:00 Albumin Human 100 ml @ 100 mls/hr Q8H IV 07/09/24 08:45 07/10/24 01:44 07/09/24 10:10 100 MLS/HR objective The patient is well-nourished and well-developed with no distress. The patient is intubated. He has jaundice Bilateral hammertoes and high-arched foot MENTAL STATUS: Subjective CRANIAL NERVES: Pupils are equal, round and reactive.There are corneal reflexes and doll's eyes phenomenon. No signs of facial weakness. There are gagging or coughing reflexes SENSATION: No responses to pain stimuli. MOTOR: Normal tone in the upper and lower extremity. Normal muscle bulk. No fasciculations. He moves the arms and legs a little bit REFLEXES: Deep tendon reflexes are symmetrical. No pathological reflexes. CEREBELLAR/COORDINATION: Deferred GAIT/STATION: deferred laboratory and microbiology Laboratory Tests 07/09/24 03:25 Test 07/09/24 03:25 Range/Units Serum Glucose 216 H 74-106 mg/dL Problem List Altered mental status Metabolic cephalopathy Hepatic encephalopathy Hypoxic encephalopathy UTI, sepsis, septic shock Liver failure History of Alcoholism Jaundice Respiratory failure Coagulopathy Thrombocytopenia Anemia GI on case Assessment/Plan Monitoring Supportive treatment ICU care EEG Follow-up labs Stabilize vitals/pressor drip Respiratory support/vent management Thiamine supplementation Lactulose Nephrology on case Pulmonology on case GI on case This medical document was created using an electronic medical record system with [employer] dictation system. Although this document has been carefully reviewed, there may still be some phonetic and typographical errors. These areas are purely typographical due to imperfections of the software programs, and do not reflect any compromise in the patient's medical care. Prognosis Guarded Dietary Evaluation Review Comments: 1) Consider EN/PN if NPO>7 days 2) advance diet to renal specific 40gm if medically feasible 3) Continue current plan of care Expected Outcomes/Goals: Pt will meet >75% estimated needs Fu 2-3 days Plan discussed with: Other Critical Care Time(min): 35 CC Plasma Assessment Blood Product Administration S: [id number] ERIC ARIAS MD Jul 09, 2024 10:50
[2024-07-09 13:12] LABS: Basophils # (auto) 0 10 ^3/uL (0-0.2); Basophils % (auto) 0.3 % (0.0-2.0); Eosinophils # (auto) 0 10 ^3/uL (0-0.8); Hematocrit 22.5 % (41.0-53.0); Hemoglobin 7.9 g/dL (13.5-17.5); Lymphocytes # (auto) 0.5 10 ^3/uL (0.4-5.4); Lymphocytes % (auto) 3.9 % (10.0-50.0); Mean Corpuscular Hemoglobin 31.9 pg (28.0-32.0); Mean Corpuscular Hgb Conc. 34.9 g/dL (32.0-36.0); Mean Corpuscular Volume 91.2 fL (80.0-100.0); Monocytes # (auto) 0.3 10 ^3/uL (0-1.3); Monocytes % (auto) 2.4 % (0.0-12.0); Neutrophils # (auto) 12.6 10 ^3/uL (1.6-8.6); Neutrophils % (auto) 93.4 % (37.0-80.0); Platelet Count (auto) 21 10^3/uL (140-450); Red Blood Cells 2.47 10^6/uL (4.5-5.90); White Blood Cell 13.4 10^3/uL (4.4-10.8)
[2024-07-09 13:31] LABS: Alkaline Phosphatase 72 U/L (46-116); Anion Gap 13 (5-15); Calcium 9.5 mg/dL (8.7-10.4); Carbon Dioxide 31 mmol/L (20-31); Sodium 140 mmol/L (136-145)
[2024-07-09 13:32] LABS: Albumin 3.3 g/dL (3.2-4.8)
[2024-07-09 13:33] LABS: Bilirubin, Total 20.4 mg/dL (0.2-1.0); Chloride 96 mmol/L (98-107); Glucose 167 mg/dL (74-106)
--- NOTE | 2024-07-09 13:33 | DVHPN2 ---
Progress Note Date Seen: Jul 09, 2024 Has the PT tested + for MRSA If YES, has PT been informed?: No Medical Necessity Reason Pt with a Central, PICC or Fol: Yes The following are medically ne: [place] Catheter Reason for durham catheter: Strict I&O Subjective Review of Systems: RESPIRATORY:Abnormal Other Systems: Patient seen and examined by myself today in follow-up Patient remained intubated on ventilator Patient examined hemodialysis, blood pressure stable Objective vital signs Vital Sign Date Time Temp Pulse Resp B/P (MAP) Pulse Ox O2 Delivery O2 Flow Rate FiO2 07/09/24 13:15 82 26 120/45 (70) 94 07/09/24 12:11 30 07/09/24 12:09 Mechanical Ventilator+ 07/09/24 12:00 97.7 97.7 07/07/24 10:00 0 Total Intake and Output 07/08/24 07/08/24 07/09/24 15:00 23:00 07:00 Intake Total 870 ml 541 ml 1017 ml Output Total 900 ml 175 ml Balance 870 ml -359 ml 842 ml medications Current Medications Medications Dose Ordered Sig/Erik Route Start Time Stop Time Status Last Admin Dose Admin Ondansetron HCl 4 mg Q4HP PRN IV 07/01/24 02:45 Midodrine 10 mg TID@0600,1200,1800 PO 07/01/24 06:00 07/08/24 18:10 10 MG Thiamine HCl 100 mg DAILY PO 07/03/24 10:00 Haloperidol Lactate 5 mg Q8HP PRN IM 07/04/24 00:00 07/05/24 22:48 5 MG Rocuronium [place] 50 mg ONCE PRN IV 07/07/24 09:45 Norepinephrine Bitartrate 250 ml @ 3.75 mls/hr Q24H IV 07/07/24 09:30 07/07/24 23:22 11.25 MLS/HR Phenylephrine HCl 250 ml @ 30 mls/hr Q8H20M IV 07/07/24 09:30 Fentanyl Citrate 250 ml @ 2.5 mls/hr Q24H IV 07/07/24 09:30 07/09/24 06:46 35 MLS/HR Hydrocortisone Sodium Succinate 50 mg Q6HR IV 07/07/24 12:00 07/09/24 11:03 50 MG Meropenem 50 ml @ 17 mls/hr DAILY IV 07/08/24 10:00 07/09/24 07:52 17 MLS/HR Vasopressin 20 units/Sodium Chloride 100 ml @ 9 mls/hr Q11H7M IV 07/07/24 12:30 07/09/24 10:11 12 MLS/HR Albumin Human 100 ml @ 100 mls/hr PRN PRN IV 07/07/24 16:30 07/09/24 17:29 Pantoprazole Sodium 50 ml @ 10 mls/hr Q5H IV 07/07/24 17:15 07/09/24 07:53 10 MLS/HR Octreotide Acetate 500 mcg/ Sodium Chloride 100 ml @ 10 mls/hr Q10H IV 07/07/24 17:15 07/09/24 07:53 10 MLS/HR Lactulose 300 ml Q6HR [place] 07/08/24 00:00 07/08/24 06:01 300 ML Lorazepam 1 mg Q5MINP PRN IV 07/08/24 00:00 Vancomycin HCl 0 ml @ 0 mls/hr UD IV 07/08/24 09:30 Propofol 100 ml @ 2.775 mls/ hr Q24H IV 07/08/24 10:00 Albumin Human 100 ml @ 100 mls/hr Q8H IV 07/09/24 08:45 07/10/24 01:44 07/09/24 10:10 100 MLS/HR Examination: LUNGS:Normal, CVS:Normal, MSK:Normal laboratory and microbiology Laboratory Tests 07/09/24 12:53 Test 07/09/24 12:53 Range/Units Serum Glucose Pending Microbiology Date/Time Source Procedure Growth Status 07/07/24 09:58 Trachea Gram Stain - Final Resulted 07/07/24 09:58 Respiratory Culture - Preliminary Presumptive Julissa albicans Resulted 07/01/24 17:21 Voided Urine Urine Culture - Final Enterococcus faecium Complete 07/01/24 08:53 Ascities Fluid Gram Stain - Final Complete 07/01/24 08:53 Ascities Fluid Body Fluid Culture - Final Complete 06/30/24 21:52 Blood Blood Culture - Final NO GROWTH AFTER 5 DAYS OF INCUBATION. Complete Problem List/Assessment/Plan Problem List/Assessment/Plan Acute kidney injury----ATN in the setting of hypotension/ blood loss, anuric requiring initiation of intermittent hemodialysis Acute respiratory failure, patient intubated on ventilator GI bleeding Septic shock Lactic acidosis Hyperkalemia Hepatic encephalopathy Decompensated liver cirrhosis status post paracentesis Chronic alcoholism Hypoglycemia Recommendations Continue with UF 2 L as tolerated use no heparin Epogen 04633 subQ with hemodialysis Albumin 25% p.r.n. hemodialysis Hyperkalemia resolved [place] catheter Strict I&Os DC IV fluid IV antibiotics IV pressor for blood pressure support Maintain map greater than 65 Packed red blood cell transfusion p.r.n. We will continue to follow Plan discussed with: Other (Nurse) Dietary Evaluation Review Comments: 1. Suggest Nepro 1.8 @ 50 ml/hr + 1 pckt ProStat daily; begin @ 10 ml/hr, advance SLOWLY by 10 ml Q12 hrs to goal-rate of 50 ml/hr continuously 2. Provide minimal free water flushes of 30 ml Q6 hrs (120 ml total) for tube patency; adjust PRN/per MD discretion 3. Continue to monitor/replete lytes, especially K, Mag, Phos given high refeeding risk; add 100 mg thiamine daily x 7 days 4. Should lytes drop, maintain current rate of EN and replace to WNL prior to advancing rate of EN further TF Provision: TF at goal to provide 1200 ml total volume, 2160 kcal (+100 kcal via Prostat = 2260 kcal), 97 gm pro (+ 15 gm via Prostat = 112 gm), 15 gm fiber, 1272 mg K, 864 mg Phos, 872 ml H20 (meets 100% est. kcal needs, 100% est. pro needs) Expected Outcomes/Goals: Improved nutritional status, improved hemodynamic stability. Food and Nutrition Intake (Sev: <50% est energy req 5days Fluid Accumulation (Severe): Moderate Fluid Retention Protein Calorie Malnutrition: Severe Is there a minimum of two crit: Yes CC Plasma Assessment Blood Product Administration S: [id number] CHARLIE HALE MD Jul 09, 2024 13:33
[2024-07-09 14:15] LABS: Alanine Aminotransferase 125 U/L (7-40); Aspartate Aminotransferase 226 U/L (13-40); BUN/Creatinine Ratio 13.7 (10.0-20.0); Blood Urea Nitrogen 48 mg/dL (9-23); Total Protein 5.5 g/dL (5.7-8.2)
[2024-07-09] MEDS ORDERED: POTASSIUM CHL 20MEQ/100ML 100 ML IV SCH (14:30)
[2024-07-09] MEDS: POTASSIUM CHL 20MEQ/50ML 50 ML IV SCH (15:14)
[2024-07-09 16:29] LABS: Magnesium 2.2 mg/dL (1.6-2.6)
[2024-07-09 16:44] LABS: Phosphorus 5.7 mg/dL (2.4-5.1)
[2024-07-09 18:49] LABS: Basophils # (auto) 0 10 ^3/uL (0-0.2); Eosinophils # (auto) 0 10 ^3/uL (0-0.8); Hemoglobin 7.3 g/dL (13.5-17.5); Lymphocytes # (auto) 0.7 10 ^3/uL (0.4-5.4); Neutrophils # (auto) 10.3 10 ^3/uL (1.6-8.6); Neutrophils % (auto) 91.6 % (37.0-80.0)
[2024-07-09 18:51] LABS: Basophils % (auto) 0.2 % (0.0-2.0); Hematocrit 20.8 % (41.0-53.0); Lymphocytes % (auto) 5.8 % (10.0-50.0); Mean Corpuscular Hemoglobin 31.7 pg (28.0-32.0); Mean Corpuscular Volume 90.5 fL (80.0-100.0); Monocytes # (auto) 0.3 10 ^3/uL (0-1.3); Monocytes % (auto) 2.4 % (0.0-12.0); Nucleated Red Blood Cells % 0.2 %; Red Cell Distribution Width 15.8 % (11.8-14.3); White Blood Cell 11.3 10^3/uL (4.4-10.8)
[2024-07-09 19:00] LABS: Albumin 3.3 g/dL (3.2-4.8); Alkaline Phosphatase 67 U/L (46-116); Anion Gap 13 (5-15); Calcium 9.7 mg/dL (8.7-10.4); Carbon Dioxide 31 mmol/L (20-31); Sodium 140 mmol/L (136-145)
--- NOTE | 2024-07-09 19:10 | DVHPN2 ---
Progress Note - Dictate Date Seen: Jul 09, 2024 Has the PT tested + for MRSA If YES, has PT been informed?: No Medical Necessity Reason Pt with a Central, PICC or Fol: Yes The following are medically ne: [place] Catheter Reason for durham catheter: Strict I&O Subjective Patient seen and examined at bedside. Intubated on mechanical ventilator. Overnight events reviewed. vital signs Vital Sign Date Time Temp Pulse Resp B/P (MAP) Pulse Ox O2 Delivery O2 Flow Rate FiO2 07/09/24 18:30 86 24 162/99 (120) 97 117/40 (65) 07/09/24 18:09 30 07/09/24 17:47 Mechanical Ventilator+ 07/09/24 16:00 97.8 97.8 07/07/24 10:00 0 Total Intake and Output 07/08/24 07/08/24 07/09/24 15:00 23:00 07:00 Intake Total 870 ml 541 ml 1017 ml Output Total 900 ml 175 ml Balance 870 ml -359 ml 842 ml medications Current Medications Medications Dose Ordered Sig/Erik Route Start Time Stop Time Status Last Admin Dose Admin Ondansetron HCl 4 mg Q4HP PRN IV 07/01/24 02:45 Midodrine 10 mg TID@0600,1200,1800 PO 07/01/24 06:00 07/09/24 17:26 10 MG Thiamine HCl 100 mg DAILY PO 07/03/24 10:00 Haloperidol Lactate 5 mg Q8HP PRN IM 07/04/24 00:00 07/05/24 22:48 5 MG Rocuronium [place] 50 mg ONCE PRN IV 07/07/24 09:45 Norepinephrine Bitartrate 250 ml @ 3.75 mls/hr Q24H IV 07/07/24 09:30 07/07/24 23:22 11.25 MLS/HR Phenylephrine HCl 250 ml @ 30 mls/hr Q8H20M IV 07/07/24 09:30 Fentanyl Citrate 250 ml @ 2.5 mls/hr Q24H IV 07/07/24 09:30 07/09/24 14:00 35 MLS/HR Hydrocortisone Sodium Succinate 50 mg Q6HR IV 07/07/24 12:00 07/09/24 17:26 50 MG Meropenem 50 ml @ 17 mls/hr DAILY IV 07/08/24 10:00 07/09/24 07:52 17 MLS/HR Vasopressin 20 units/Sodium Chloride 100 ml @ 9 mls/hr Q11H7M IV 07/07/24 12:30 07/09/24 10:11 12 MLS/HR Pantoprazole Sodium 50 ml @ 10 mls/hr Q5H IV 07/07/24 17:15 07/09/24 17:27 10 MLS/HR Octreotide Acetate 500 mcg/ Sodium Chloride 100 ml @ 10 mls/hr Q10H IV 07/07/24 17:15 07/09/24 07:53 10 MLS/HR Lactulose 300 ml Q6HR [place] 07/08/24 00:00 07/09/24 17:26 300 ML Lorazepam 1 mg Q5MINP PRN IV 07/08/24 00:00 Vancomycin HCl 0 ml @ 0 mls/hr UD IV 07/08/24 09:30 Propofol 100 ml @ 2.775 mls/ hr Q24H IV 07/08/24 10:00 Albumin Human 100 ml @ 100 mls/hr Q8H IV 07/09/24 08:45 07/10/24 01:44 07/09/24 14:06 100 MLS/HR Potassium Chloride 100 ml @ 50 mls/hr Q2H IV 07/09/24 14:30 07/09/24 18:29 UNV Amino Acids 0 ml @ 0 mls/hr PER PHARMACY IV 07/09/24 21:00 Amino Acids/ Electrolytes/ Dextrose 1,000 ml @ 41 mls/hr DAILY@2200 IV 07/09/24 22:00 Diagnostic Test (Pha) 1 strip Q6HR 07/10/24 00:00 Insulin Human Regular FOLLOW SLIDING SCALE Q6HR SC 07/10/24 00:00 Dextrose 50 ml UD IV 07/10/24 00:00 objective Gen.: Patient lying in bed in medical ICU. Intubated on mechanical ventilator. Head: Normocephalic, atraumatic. Eyes: PERRLA. Ears: Normal external anatomy. Throat: Endotracheal tube and orogastric tube in place. Neck: Supple, trachea midline. Chest: Transmitted breath sounds bilaterally. Decreased air entry bilaterally. No wheezing. Bibasilar crackles. Cardiovascular: Positive S1, positive S2. Regular rate and rhythm. Abdomen: Positive bowel sounds in all 4 quadrants. Soft, nontender, nondistended. : Durham in place. Normal external genitalia. Rectal: Deferred. Skin: Warm, dry. Intact. Extremities: 2+ radial pulses bilaterally. No lower extremity edema. Neuro: Off sedation laboratory and microbiology Laboratory Tests 07/09/24 18:36 Test 07/09/24 18:10 Range/Units Serum Glucose Pending Assessment/Plan Impression: Acute hypercarbic respiratory failure On mechanical ventilator Acute metabolic encephalopathy Shock Liver cirrhosis Hx of ETOH abuse Events: Remains on vent support On AC mode; RR 30, VT 450, PEEP 5, FiO2 40 -->30% Improved FiO2 requirements Off sedation On Fentanyl for analgesia Off Levophed, vasopressin and Tino-Synephrine Monitor hemodynamics Continue midodrine Continue antibiotics - on meropenem Continue IV steroids Continue Octreotide, Protonix drip GI recs appreciated Monitor hemoglobin NGT in place. ABG shows pH 7.387, pCO2 56.4, pO2 78.5, bicarb 33.1 ABG compensated CXR image and report reviewed. Bibasilar opacities. Mild pulmonary vascular congestion. Devices in place. Labs and imaging reviewed. Rest of plan as noted below. Plan: s/p intubation on mechanical ventilator. On AC mode; RR 30, VT 450, PEEP 5, FiO2 30% Titrate FIO2 to keep O2 saturation above 90%. VAP bundle. Daily ABG and CXR while intubated Off sedation Continue antibiotics. Octreotide drip Protonix drip GI recommendations appreciated Pressors if necessary for hemodynamic support Titrate to keep mean arterial pressure greater than 65 mmHg. Accu-Cheks, ISS PRN. Diurese as tolerated w/ Bumex Monitor renal function Monitor electrolytes. Supplement as necessary. Monitor ins and outs. Maintain euvolemia. GI prophylaxis. DVT prophylaxis. Prognosis: Poor given patient's multiple co-morbidities. Condition: Critical Rest of plan per hospitalist and other consultants. A total of 35 minutes of critical care time was spent reviewing the patient record, examining the patient, making a diagnostic and therapeutic plan, discussing this plan with the medical personnel, following up on diagnostic studies and following the patient for clinical stability excluding any and all procedures. At least 50% of this time was spent in direct, isxe-eq-qxzy contact. Thank you Dr. Ovalle for allowing me to participate in this patient's care. Further recommendations will depend on the patient's clinical course. Please do not hesitate to contact me if you have any questions or concerns. This medical document was created using an electronic medical record system with e[employer] dictation system. Although these documentations are being carefully reviewed, there may still be some phonetic and typographical changes. The errors are purely typographical, due to imperfection on the software program, and do not reflect any compromise in the patient's medical care. Dietary Evaluation Review Comments: 1. Suggest Nepro 1.8 @ 50 ml/hr + 1 pckt ProStat daily; begin @ 10 ml/hr, advance SLOWLY by 10 ml Q12 hrs to goal-rate of 50 ml/hr continuously 2. Provide minimal free water flushes of 30 ml Q6 hrs (120 ml total) for tube patency; adjust PRN/per MD discretion 3. Continue to monitor/replete lytes, especially K, Mag, Phos given high refeeding risk; add 100 mg thiamine daily x 7 days 4. Should lytes drop, maintain current rate of EN and replace to WNL prior to advancing rate of EN further TF Provision: TF at goal to provide 1200 ml total volume, 2160 kcal (+100 kcal via Prostat = 2260 kcal), 97 gm pro (+ 15 gm via Prostat = 112 gm), 15 gm fiber, 1272 mg K, 864 mg Phos, 872 ml H20 (meets 100% est. kcal needs, 100% est. pro needs) Expected Outcomes/Goals: Improved nutritional status, improved hemodynamic stability. Food and Nutrition Intake (Sev: <50% est energy req 5days Fluid Accumulation (Severe): Moderate Fluid Retention Protein Calorie Malnutrition: Severe Is there a minimum of two crit: Yes Plan discussed with: Other (CLIVE Bejarano) Critical Care Time(min): 35 CC Plasma Assessment Blood Product Administration S: [id number] JOAQUÍN VILLAFANA MD Jul 09, 2024 19:10
[2024-07-09 19:12] LABS: BUN/Creatinine Ratio 13.3 (10.0-20.0)
[2024-07-09 19:14] LABS: Alanine Aminotransferase 104 U/L (7-40); Aspartate Aminotransferase 166 U/L (13-40); Bilirubin, Total 20.2 mg/dL (0.2-1.0); Blood Urea Nitrogen 53 mg/dL (9-23); Chloride 96 mmol/L (98-107); Glucose 171 mg/dL (74-106); Potassium 3.2 mmol/L (3.5-5.1); Total Protein 5.4 g/dL (5.7-8.2)
[2024-07-09 20:04] LABS: Platelet Count (auto) 17 10^3/uL (140-450); Platelet Estimate Markedly Decreased
[2024-07-09 20:05] LABS: Target Cell FEW
[2024-07-09] MEDS ORDERED: CLINIMIX PER PHARMACY 0 ML IV SCH (21:00)
--- NOTE | 2024-07-09 21:43 | DVHPN2 ---
Progress Note - Dictate Date Seen: Jul 09, 2024 Has the PT tested + for MRSA If YES, has PT been informed?: No Medical Necessity Reason Pt with a Central, PICC or Fol: Yes The following are medically ne: [place] Catheter Reason for durham catheter: Strict I&O Subjective Patient is still intubated and sedated Patient had some blood-tinged output from his NG tube Hemoglobin dropped down to 6.8 last night he received 1 unit PRBC This morning his hemoglobin is 7.8 then 7.3 Patient also has severe [place]ocyt[place] [address] Patient underwent dialysis today S/P paracentesis with removal of 7 L of fluid Fluid cell count high suggestive of spontaneous bacterial peritonitis Patient has been started on IV antibiotics vital signs Vital Sign Date Time Temp Pulse Resp B/P (MAP) Pulse Ox O2 Delivery O2 Flow Rate FiO2 07/09/24 20:41 128/57 07/09/24 20:00 30 98 Mechanical Ventilator+ 30 30 07/09/24 20:00 98.0 75 98.0 07/07/24 10:00 0 Total Intake and Output 07/08/24 07/08/24 07/09/24 15:00 23:00 07:00 Intake Total 870 ml 541 ml 1017 ml Output Total 900 ml 175 ml Balance 870 ml -359 ml 842 ml medications Current Medications Medications Dose Ordered Sig/Erik Route Start Time Stop Time Status Last Admin Dose Admin Ondansetron HCl 4 mg Q4HP PRN IV 07/01/24 02:45 Midodrine 10 mg TID@0600,1200,1800 PO 07/01/24 06:00 07/09/24 17:26 10 MG Thiamine HCl 100 mg DAILY PO 07/03/24 10:00 Haloperidol Lactate 5 mg Q8HP PRN IM 07/04/24 00:00 07/05/24 22:48 5 MG Rocuronium [place] 50 mg ONCE PRN IV 07/07/24 09:45 Norepinephrine Bitartrate 250 ml @ 3.75 mls/hr Q24H IV 07/07/24 09:30 07/07/24 23:22 11.25 MLS/HR Phenylephrine HCl 250 ml @ 30 mls/hr Q8H20M IV 07/07/24 09:30 Fentanyl Citrate 250 ml @ 2.5 mls/hr Q24H IV 07/07/24 09:30 07/09/24 20:41 35 MLS/HR Hydrocortisone Sodium Succinate 50 mg Q6HR IV 07/07/24 12:00 07/09/24 17:26 50 MG Meropenem 50 ml @ 17 mls/hr DAILY IV 07/08/24 10:00 07/09/24 07:52 17 MLS/HR Vasopressin 20 units/Sodium Chloride 100 ml @ 9 mls/hr Q11H7M IV 07/07/24 12:30 07/09/24 10:11 12 MLS/HR Pantoprazole Sodium 50 ml @ 10 mls/hr Q5H IV 07/07/24 17:15 07/09/24 17:27 10 MLS/HR Octreotide Acetate 500 mcg/ Sodium Chloride 100 ml @ 10 mls/hr Q10H IV 07/07/24 17:15 07/09/24 07:53 10 MLS/HR Lactulose 300 ml Q6HR [place] 07/08/24 00:00 07/09/24 17:26 300 ML Lorazepam 1 mg Q5MINP PRN IV 07/08/24 00:00 Vancomycin HCl 0 ml @ 0 mls/hr UD IV 07/08/24 09:30 Propofol 100 ml @ 2.775 mls/ hr Q24H IV 07/08/24 10:00 Albumin Human 100 ml @ 100 mls/hr Q8H IV 07/09/24 08:45 07/10/24 01:44 07/09/24 14:06 100 MLS/HR Potassium Chloride 100 ml @ 50 mls/hr Q2H IV 07/09/24 14:30 07/09/24 18:29 UNV Amino Acids 0 ml @ 0 mls/hr PER PHARMACY IV 07/09/24 21:00 Amino Acids/ Electrolytes/ Dextrose 1,000 ml @ 41 mls/hr DAILY@2200 IV 07/09/24 22:00 Diagnostic Test (Pha) 1 strip Q6HR 07/10/24 00:00 Insulin Human Regular FOLLOW SLIDING SCALE Q6HR SC 07/10/24 00:00 Dextrose 50 ml UD IV 07/10/24 00:00 objective General: intubated sedated; scleral icterus Chest: lung thompson clear to auscultation Heart: RRR, no murmur Abdomen: Bufu-cz-lehxaiod-distended, no tenderness to palpation, +BS Skin: +jaundice, multiple bruises laboratory and microbiology Laboratory Tests 07/09/24 18:36 07/09/24 18:10 Test 07/09/24 18:10 Range/Units Serum Glucose 171 H 74-106 mg/dL Problems(with codes): (1) Icterus (2) Serratia marcescens infection (3) MSSA (methicillin susceptible Staphylococcus aureus) pneumonia (4) Hypotension (5) Acute liver failure (6) GI bleed (7) Alcohol intoxication (8) Severe malnutrition (9) Hepatorenal failure (10) Hepatic encephalopathy (11) Altered mental status Prognosis Plan Patient was given one pack of platelets Continue to monitor labs If hemoglobin drops below seven we will transfuse 1 unit PRBC If platelet count is less than 20 we will transfuse one pack of platelets Continue IV Protonix drip IV octreotide drip if the bleeding continues Continue to monitor labs; leukocytosis is improving, hyperbilirubinemia remains Dietary Evaluation Review Comments: 1. Suggest Nepro 1.8 @ 50 ml/hr + 1 pckt ProStat daily; begin @ 10 ml/hr, advance SLOWLY by 10 ml Q12 hrs to goal-rate of 50 ml/hr continuously 2. Provide minimal free water flushes of 30 ml Q6 hrs (120 ml total) for tube patency; adjust PRN/per MD discretion 3. Continue to monitor/replete lytes, especially K, Mag, Phos given high refeeding risk; add 100 mg thiamine daily x 7 days 4. Should lytes drop, maintain current rate of EN and replace to WNL prior to advancing rate of EN further TF Provision: TF at goal to provide 1200 ml total volume, 2160 kcal (+100 kcal via Prostat = 2260 kcal), 97 gm pro (+ 15 gm via Prostat = 112 gm), 15 gm fiber, 1272 mg K, 864 mg Phos, 872 ml H20 (meets 100% est. kcal needs, 100% est. pro needs) Expected Outcomes/Goals: Improved nutritional status, improved hemodynamic stability. Food and Nutrition Intake (Sev: <50% est energy req 5days Fluid Accumulation (Severe): Moderate Fluid Retention Protein Calorie Malnutrition: Severe Is there a minimum of two crit: Yes Plan discussed with: Other (ICU Nurse) CC Plasma Assessment Blood Product Administration S: [id number] SHANTAL BILLS MD Jul 09, 2024 21:43
[2024-07-09] MEDS: AMINO ACID INFUSION IN D10W 1,000 ML IV SCH (22:00)
[2024-07-09] MEDS: ACCU-CHEK COMFORT CURVE STRIP VI SCH (23:33)
[2024-07-09] MEDS: InsuLIN REG 1unit/0.01ml Soln (100units/ml) SC SCH (23:39)
[2024-07-10] VITALS (113 sets, daily range): BP systolic 80–197; BP diastolic 37–133; PULSE 73–104; RESP 12–31; TEMP 97.3–98.3; O2SAT 92–99
[2024-07-10] MEDS: POTASSIUM CHL 20MEQ/50ML 50 ML IV SCH (00:29)
[2024-07-10 00:58] LABS: Hematocrit 20.7 % (41.0-53.0)
[2024-07-10 01:00] LABS: Hemoglobin 7.2 g/dL (13.5-17.5)
[2024-07-10 04:42] LABS: Basophils # (auto) 0 10 ^3/uL (0-0.2); Basophils % (auto) 0.2 % (0.0-2.0); Eosinophils # (auto) 0 10 ^3/uL (0-0.8); Hemoglobin 7.1 g/dL (13.5-17.5); Lymphocytes # (auto) 0.4 10 ^3/uL (0.4-5.4); Lymphocytes % (auto) 4.5 % (10.0-50.0); Mean Corpuscular Hemoglobin 32.2 pg (28.0-32.0); Mean Corpuscular Hgb Conc. 35.4 g/dL (32.0-36.0); Mean Corpuscular Volume 90.9 fL (80.0-100.0); Monocytes # (auto) 0.2 10 ^3/uL (0-1.3); Monocytes % (auto) 2.4 % (0.0-12.0); Neutrophils # (auto) 8.7 10 ^3/uL (1.6-8.6); Neutrophils % (auto) 92.9 % (37.0-80.0); Nucleated Red Blood Cells % 0.1 %; White Blood Cell 9.4 10^3/uL (4.4-10.8)
[2024-07-10 04:43] LABS: Platelet Count (auto) 14 10^3/uL (140-450)
[2024-07-10 04:48] LABS: INR 2.09 (0.9-1.15); Partial Thromboplastin Time 54.2 SEC (24.5-34.5); Prothrombin Time 20.6 sec (9.3-11.8)
[2024-07-10 04:51] LABS: Albumin 3.2 g/dL (3.2-4.8); Alkaline Phosphatase 64 U/L (46-116); Anion Gap 14 (5-15); Calcium 10.1 mg/dL (8.7-10.4); Carbon Dioxide 29 mmol/L (20-31); Magnesium 2.2 mg/dL (1.6-2.6); Sodium 140 mmol/L (136-145)
[2024-07-10 04:54] LABS: Bilirubin, Total 20.5 mg/dL (0.2-1.0); Chloride 97 mmol/L (98-107); Glucose 194 mg/dL (74-106); Phosphorus 6.6 mg/dL (2.4-5.1); Potassium 3.5 mmol/L (3.5-5.1)
[2024-07-10 05:02] LABS: BUN/Creatinine Ratio 14.4 (10.0-20.0)
[2024-07-10 05:10] LABS: Alanine Aminotransferase 86 U/L (7-40); Aspartate Aminotransferase 104 U/L (13-40); Blood Urea Nitrogen 61 mg/dL (9-23); Total Protein 5.3 g/dL (5.7-8.2)
--- NOTE | 2024-07-10 05:31 | DVH ---
EXAM: XR Chest, 1 View CLINICAL INDICATION: intubated TECHNIQUE: Frontal view of the chest. COMPARISON: XY CHEST XRAY 1 VIEW on DOS: 07/09/24, XY CHEST XRAY 1 VIEW on DOS: 07/08/24, XY CHEST XRA Y 1 VIEW on DOS: 07/07/24, XY CHEST XRAY 1 VIEW on DOS: 07/07/24, XY CHEST PORTABLE on DOS: 07/07/24 FINDINGS: LUNGS AND PLEURAL SPACES: See below. HEART: Cardiomegaly with mild congestion. MEDIASTINUM: Unremarkable. Normal mediastinal contour. BONES/JOINTS: Unremarkable. No acute fracture. TUBES, LINES AND DEVICES: The endotracheal tube (ETT) is in satisfactory position. Right internal jugular central venous catheter tip in the superior vena cava. Enteric tube tip in the stomach. OTHER FINDINGS: . . .. IMPRESSION: Cardiomegaly with mild congestion.
[2024-07-10 06:51] LABS: Base Excess 4.8 mmol/L (-2.0-3.0)
--- NOTE | 2024-07-10 09:50 | DVHPN2 ---
Assessment/Plan Assessment/Plan ICU progress note 53-year-old male with liver cirrhosis due to alcohol use and CKD presented with altered mental status, found to have urosepsis, SBP and possible GI bleeding. He developed sepsis, worsening renal function, and required dialysis for uremia and hyperkalemia. Rapid deterioration on 07/07 led to intubation, vasopressors, and sedation; prognosis discussed with family. Patient remains critically ill with GI bleeding, and multisystem involvement. He is still on pressors, minimal vent settings, and receiving supportive care including albumin, blood products, and antibiotics (meropenem and vancomycin). Seen patient during rounds, ~200cc NG output of bloody secretion, plt low with bleeding, transfusing 4 FFP and vit K, hemo stable, vaso on for renoprotection per renal. on octreotide and protonix drip, starting TPN. no melena. lactulose. not on AC. INR 2 Physical exam Intubated, sedated on mechanical ventilation PERRLA Cough, gag, corneal intact Mechanical breath sounds S1 S2 RRR Abdomen distended UE edema Trace LE edema Vent AC/PC 450/RR 30/PEEP 5/ FIO2 30% ABG 7.42/46/93 Drip vaso octreotide protonix fentanyl propofol Labs Plt 17 INR 2 Imaging CXR stable POCUS with ascites Assessment and plan Acute hypoxic respiratory failure req mechanical vent Mixed shock, septic and hemorrhagic Acute metabolic encephalopathy likely hepatic vs uremic [place] ATN vs hepatorenal on CKD on [employer] Azotemia Acute upper GI bleed, variceal bleed possible Severe anemia req transfusion Severe thrombocytopenia with bleeding req transfusion Alcoholic cirrhosis Enterococcus UTI SBP Severe malnutrition C/w mechanical ventilator c/w prop and fent for vent synchrony C/w vaso for renal protection per nephro C/w octreotide and protonix drip C/w vanc and [place] C/w [employer] per renal c/w stress dose steroid for 5 days transfuse 4 FFP today vitamin K start TPN GI recs appreciated CBC q12, daily coags no need to trend [place] resume lactulose enema Lines R IJ HD non tunneled L IJ TLC L radial a line durham ETT NGT Keep K 4, Mg 2 Diet NPO exc meds DVT ppx on hold bleeding GI PPX on protonix drip condition critical prognosis grim full code critical care time 60 minutes Plan discussed with: Other My Orders Orders - ASHLEY GALAN MD Procedure Category Date Status Time Clinimix Per Pharmacy [facility] 07/09/24 In Process 21:00 Amino Acid Infusion [facility] 07/09/24 In Process In D10w (Clinimix 4. 22:00 Clinimix Per Pharmacy [facility] 07/09/24 In Process 22:00 Vancomycin Per [facility] 07/09/24 In Process Pharmacy [facility] 18:09 Frozen Plasma BBK 07/10/24 Logged 09:28 Type And Screen BBK 07/10/24 Logged 09:28 Date of Service: Jul 10, 2024 Billing Provider: ASHLEY GALAN MD Common Visit Codes: 55153-[id number] CARE 30-74 MIN ASHLEY GALAN MD Jul 10, 2024 09:50
[2024-07-10] MEDS ORDERED: TPN PER PHARMACY 0 ML IV SCH (10:00)
[2024-07-10 10:38] LABS: Eosinophils # (auto) 0 10 ^3/uL (0-0.8); Hemoglobin 7.3 g/dL (13.5-17.5); Mean Corpuscular Hemoglobin 31.3 pg (28.0-32.0); Monocytes # (auto) 0.3 10 ^3/uL (0-1.3)
[2024-07-10 10:43] LABS: Basophils # (auto) 0.1 10 ^3/uL (0-0.2); Basophils % (auto) 0.6 % (0.0-2.0); Hematocrit 21.1 % (41.0-53.0); Lymphocytes # (auto) 0.5 10 ^3/uL (0.4-5.4); Lymphocytes % (auto) 4.7 % (10.0-50.0); Mean Corpuscular Hgb Conc. 34.4 g/dL (32.0-36.0); Mean Corpuscular Volume 90.9 fL (80.0-100.0); Monocytes % (auto) 2.9 % (0.0-12.0); Neutrophils # (auto) 9.3 10 ^3/uL (1.6-8.6); Neutrophils % (auto) 91.8 % (37.0-80.0); Red Blood Cells 2.32 10^6/uL (4.5-5.90); Red Cell Distribution Width 15.9 % (11.8-14.3); White Blood Cell 10.2 10^3/uL (4.4-10.8)
[2024-07-10 10:45] LABS: Platelet Count (auto) 19 10^3/uL (140-450)
--- NOTE | 2024-07-10 11:02 | DVHPN2 ---
Progress Note Date Seen: Jul 10, 2024 Has the PT tested + for MRSA If YES, has PT been informed?: No Medical Necessity Reason Pt with a Central, PICC or Fol: Yes The following are medically ne: [place] Catheter Reason for durham catheter: Strict I&O Subjective Review of Systems: RESPIRATORY:Abnormal Other Systems: Patient seen and examined by myself today in follow-up, patient remained intubated on ventilator Objective vital signs Vital Sign Date Time Temp Pulse Resp B/P (MAP) Pulse Ox O2 Delivery O2 Flow Rate FiO2 07/10/24 09:47 78 30 148/57 (87) 98 30 07/10/24 08:55 97.6 97.6 07/10/24 08:00 Mechanical Ventilator+ Total Intake and Output 07/09/24 07/09/24 07/10/24 15:00 23:00 07:00 Intake Total 791.25 ml 835 ml 823.8 ml Output Total 150 ml 400 ml Balance 791.25 ml 685 ml 423.8 ml medications Current Medications Medications Dose Ordered Sig/Erik Route Start Time Stop Time Status Last Admin Dose Admin Ondansetron HCl 4 mg Q4HP PRN IV 07/01/24 02:45 Midodrine 10 mg TID@0600,1200,1800 PO 07/01/24 06:00 07/10/24 05:34 10 MG Thiamine HCl 100 mg DAILY PO 07/03/24 10:00 07/10/24 10:15 100 MG Haloperidol Lactate 5 mg Q8HP PRN IM 07/04/24 00:00 07/05/24 22:48 5 MG Rocuronium [place] 50 mg ONCE PRN IV 07/07/24 09:45 Norepinephrine Bitartrate 250 ml @ 3.75 mls/hr Q24H IV 07/07/24 09:30 07/07/24 23:22 11.25 MLS/HR Phenylephrine HCl 250 ml @ 30 mls/hr Q8H20M IV 07/07/24 09:30 Fentanyl Citrate 250 ml @ 2.5 mls/hr Q24H IV 07/07/24 09:30 07/10/24 03:53 35 MLS/HR Hydrocortisone Sodium Succinate 50 mg Q6HR IV 07/07/24 12:00 07/10/24 05:34 50 MG Meropenem 50 ml @ 17 mls/hr DAILY IV 07/08/24 10:00 07/10/24 10:15 17 MLS/HR Vasopressin 20 units/Sodium Chloride 100 ml @ 9 mls/hr Q11H7M IV 07/07/24 12:30 07/10/24 01:52 6 MLS/HR Pantoprazole Sodium 50 ml @ 10 mls/hr Q5H IV 07/07/24 17:15 07/10/24 05:35 10 MLS/HR Octreotide Acetate 500 mcg/ Sodium Chloride 100 ml @ 10 mls/hr Q10H IV 07/07/24 17:15 07/10/24 05:34 10 MLS/HR Lactulose 300 ml Q6HR DE 07/08/24 00:00 07/10/24 05:34 300 ML Lorazepam 1 mg Q5MINP PRN IV 07/08/24 00:00 Vancomycin HCl 0 ml @ 0 mls/hr UD IV 07/08/24 09:30 Propofol 100 ml @ 2.775 mls/ hr Q24H IV 07/08/24 10:00 Potassium Chloride 100 ml @ 50 mls/hr Q2H IV 07/09/24 14:30 07/09/24 18:29 UNV Amino Acids 0 ml @ 0 mls/hr PER PHARMACY IV 07/09/24 21:00 07/10/24 21:59 Amino Acids/ Electrolytes/ Dextrose 1,000 ml @ 41 mls/hr DAILY@2200 IV 07/09/24 22:00 07/10/24 21:59 07/09/24 22:00 41 MLS/HR Diagnostic Test (Pha) 1 strip Q6HR 07/10/24 00:00 07/10/24 05:33 1 STRIP Insulin Human Regular FOLLOW SLIDING SCALE Q6HR SC 07/10/24 00:00 07/10/24 05:33 4 UNITS Dextrose 50 ml UD IV 07/10/24 00:00 Amino Acids 0 ml @ 0 mls/hr PER PHARMACY IV 07/10/24 10:00 Dopamine HCl/ Dextrose 250 ml @ 6.953 mls/ hr Q24H IV 07/10/24 11:00 UNV Examination: LUNGS:Normal, CVS:Normal, MSK:Normal laboratory and microbiology Laboratory Tests 07/10/24 10:40 07/10/24 03:50 Test 07/10/24 03:50 Range/Units Serum Glucose 194 H 74-106 mg/dL Microbiology Date/Time Source Procedure Growth Status 07/07/24 09:58 Trachea Gram Stain - Final Resulted 07/07/24 09:58 Respiratory Culture - Preliminary Presumptive Julissa albicans Resulted 07/01/24 17:21 Voided Urine Urine Culture - Final Enterococcus faecium Complete 07/01/24 08:53 Ascities Fluid Gram Stain - Final Complete 07/01/24 08:53 Ascities Fluid Body Fluid Culture - Final Complete 06/30/24 21:52 Blood Blood Culture - Final NO GROWTH AFTER 5 DAYS OF INCUBATION. Complete Problem List/Assessment/Plan Problem List/Assessment/Plan Acute kidney injury----ATN in the setting of hypotension/ blood loss, anuric requiring initiation of intermittent hemodialysis Acute respiratory failure, patient intubated on ventilator GI bleeding Septic shock Lactic acidosis Hyperkalemia Hepatic encephalopathy Decompensated liver cirrhosis status post paracentesis Chronic alcoholism Hypoglycemia Recommendations Hemodialysis tomorrow, use no heparin Epogen 18409 subQ with hemodialysis Albumin 25% p.r.n. hemodialysis Hyperkalemia resolved Durham catheter Strict I&Os DC IV fluid IV antibiotics Low-dose dopamine IV pressor for blood pressure support Maintain map greater than 65 Packed red blood cell transfusion p.r.n. We will continue to follow Plan discussed with: Other (Nurse) My Orders My Orders Orders - CHARLIE HALE MD Procedure Category Date Status Time Dopamine 1600mcg/Ml PHA 07/10/24 Logged D5W 11:00 Hemodialysis Orders ORDERS 07/11/24 Transmitted 07:00 Dialysis Nursing [place] 07/11/24 Transmitted Message 07:00 Heparin Sodium PHA 07/11/24 Transmitted (Porcine) 07:00 Sodium Chloride 0.9% PHA 07/11/24 Transmitted 07:00 Document Fluid Input [place] 07/11/24 Transmitted And Outpu 07:00 Retacrit 10,000unit PHA 07/11/24 Transmitted Sc Xone 21:00 Dietary Evaluation Review Comments: 1. Suggest Nepro 1.8 @ 50 ml/hr + 1 pckt ProStat daily; begin @ 10 ml/hr, advance SLOWLY by 10 ml Q12 hrs to goal-rate of 50 ml/hr continuously 2. Provide minimal free water flushes of 30 ml Q6 hrs (120 ml total) for tube patency; adjust PRN/per MD discretion 3. Continue to monitor/replete lytes, especially K, Mag, Phos given high refeeding risk; add 100 mg thiamine daily x 7 days 4. Should lytes drop, maintain current rate of EN and replace to WNL prior to advancing rate of EN further TF Provision: TF at goal to provide 1200 ml total volume, 2160 kcal (+100 kcal via Prostat = 2260 kcal), 97 gm pro (+ 15 gm via Prostat = 112 gm), 15 gm fiber, 1272 mg K, 864 mg Phos, 872 ml H20 (meets 100% est. kcal needs, 100% est. pro needs) Expected Outcomes/Goals: Improved nutritional status, improved hemodynamic stability. Food and Nutrition Intake (Sev: <50% est energy req 5days Fluid Accumulation (Severe): Moderate Fluid Retention Protein Calorie Malnutrition: Severe Is there a minimum of two crit: Yes CC Plasma Assessment Blood Product Administration S: [id number] CHARLIE HALE MD Jul 10, 2024 11:02
[2024-07-10] MEDS: PHYTONADIONE (VIT K)10 MG/ML 1ML VIAL SUBCUT ONE (11:45)
[2024-07-10] MEDS: DOPamine 1600MCG/ML D5W 250 ML IV SCH (13:40)
--- NOTE | 2024-07-10 15:10 | DVHPN2 ---
Progress Note - Dictate Date Seen: Jul 10, 2024 Has the PT tested + for MRSA If YES, has PT been informed?: No Medical Necessity Reason Pt with a Central, PICC or Fol: Yes The following are medically ne: [place] Catheter Reason for durham catheter: Strict I&O Subjective Mr. Juarez is a 53 years old right-handed gentleman with a history of liver failure, liver cirrhosis, alcoholism, prostatic cancer, anxiety, hepatorenal syndrome, he came to the hospital on 06/30/24 because of for a few days. In the hospital, the patient was found to have severe jaundice, liver failure, coagulopathy, urinary tract infection, sepsis, kidney failure. On 07/08/2023, the patient was had code assistance because of hypotension and he was nonresponsive, the patient was resuscitated, intubated and transferred to ICU I saw him on 11/03/2020 for seizure I have seen and examined the patient, he is sedated, responsive to light touch Dried blood in the mouth Hearing culture, 07/01/2024: Enterococcus faecium Blood culture, 06/30/2024: No growth UDS, 07/01/2024: Negative Plasma alcohol, 06/30/2024: 3.6 Urinalysis, 07/01/2024: WBC: 3958, urine leukocyte esterase: 3+ ABG, 07/07/2024: Combined metabolic and respiratory acidosis, respiratory acidosis WBC/HB/PLT/MCV, 07/07/2024: 19.5/8.2/80/100.9, 07/09/2024: 18. 1/6.8/24/97.7, 07/10/2024: 10.2/7.3/19/90.9 PT/INR/PTT, 07/07/2024: 27.2/2.85/56.7, 07/10/2024: 20.6/2.09/54.2 K 07/07/2024: 6.3 BUN/CR, 07/07/2024: 88/7.62 TBI/AST/ALT/AP, 07/07/2024: 23.5/263/60/73 Lactic acid, 07/07/2024: 6.9, 4.9 Ammonia, 11/02/2020: 98, 11/03/2020: 109, 95, 11/07/2020: 95, 06/30/2024: 54, 07/03/2024: 11, 07/07/2024: 33 Vitamin B12, 07/01/24: 2308 Folic acid, 07/01/24: 11.87 EEG, : [id number] abnormal EEG Chest x-ray, 07/07/2024: Right basilar opacity. Lines and tubes in appropriate position. CT head, 08/18/2020: No acute intracranial abnormality identified. Mild cerebral volume loss. Cerebral atherosclerosis CT head, 06/30/2024: No acute intracranial abnormality CTA, 11/05/2020: No intracranial hemorrhage vital signs Vital Sign Date Time Temp Pulse Resp B/P (MAP) Pulse Ox O2 Delivery O2 Flow Rate FiO2 07/10/24 14:30 102 15 153/72 (99) 96 07/10/24 14:00 30 07/10/24 14:00 Mechanical Ventilator+ 07/10/24 12:00 97.3 97.3 Total Intake and Output 07/09/24 07/09/24 07/10/24 15:00 23:00 07:00 Intake Total 791.25 ml 835 ml 925.8 ml Output Total 150 ml 400 ml Balance 791.25 ml 685 ml 525.8 ml medications Current Medications Medications Dose Ordered Sig/Erik Route Start Time Stop Time Status Last Admin Dose Admin Ondansetron HCl 4 mg Q4HP PRN IV 07/01/24 02:45 Midodrine 10 mg TID@0600,1200,1800 PO 07/01/24 06:00 07/10/24 11:05 10 MG Thiamine HCl 100 mg DAILY PO 07/03/24 10:00 07/10/24 10:15 100 MG Haloperidol Lactate 5 mg Q8HP PRN IM 07/04/24 00:00 07/05/24 22:48 5 MG Rocuronium [place] 50 mg ONCE PRN IV 07/07/24 09:45 Norepinephrine Bitartrate 250 ml @ 3.75 mls/hr Q24H IV 07/07/24 09:30 07/07/24 23:22 11.25 MLS/HR Phenylephrine HCl 250 ml @ 30 mls/hr Q8H20M IV 07/07/24 09:30 Fentanyl Citrate 250 ml @ 2.5 mls/hr Q24H IV 07/07/24 09:30 07/10/24 03:53 35 MLS/HR Hydrocortisone Sodium Succinate 50 mg Q6HR IV 07/07/24 12:00 07/10/24 11:06 50 MG Meropenem 50 ml @ 17 mls/hr DAILY IV 07/08/24 10:00 07/10/24 10:15 17 MLS/HR Vasopressin 20 units/Sodium Chloride 100 ml @ 9 mls/hr Q11H7M IV 07/07/24 12:30 07/10/24 01:52 6 MLS/HR Pantoprazole Sodium 50 ml @ 10 mls/hr Q5H IV 07/07/24 17:15 07/10/24 11:07 10 MLS/HR Octreotide Acetate 500 mcg/ Sodium Chloride 100 ml @ 10 mls/hr Q10H IV 07/07/24 17:15 07/10/24 05:34 10 MLS/HR Lactulose 300 ml Q6HR MA 07/08/24 00:00 07/10/24 05:34 300 ML Lorazepam 1 mg Q5MINP PRN IV 07/08/24 00:00 Vancomycin HCl 0 ml @ 0 mls/hr UD IV 07/08/24 09:30 Propofol 100 ml @ 2.775 mls/ hr Q24H IV 07/08/24 10:00 Potassium Chloride 100 ml @ 50 mls/hr Q2H IV 07/09/24 14:30 07/09/24 18:29 UNV Amino Acids/ Electrolytes/ Dextrose 1,000 ml @ 41 mls/hr DAILY@2200 IV 07/09/24 22:00 07/10/24 21:59 07/09/24 22:00 41 MLS/HR Diagnostic Test (Pha) 1 strip Q6HR 07/10/24 00:00 07/10/24 11:14 1 STRIP Insulin Human Regular FOLLOW SLIDING SCALE Q6HR SC 07/10/24 00:00 07/10/24 11:15 4 UNITS Dextrose 50 ml UD IV 07/10/24 00:00 Amino Acids 0 ml @ 0 mls/hr PER PHARMACY IV 07/10/24 10:00 Dopamine HCl/ Dextrose 250 ml @ 6.953 mls/ hr Q24H IV 07/10/24 11:00 07/10/24 13:40 6.953 MLS/HR Fat Emulsion Intravenous 50 ml/ Sodium Chloride 20 meq/Potassium Acetate 10 meq/ Magnesium Sulfate 4 meq/ Multivitamins 10 ml/Chromium/ Copper/Manganese/ Zinc 1 ml/Insulin Human Regular 4 units/Amino Acids/ Dextrose/Purified Water 822.04 ml @ 34 mls/hr [id number] IV 07/10/24 22:00 07/11/24 21:59 objective The patient is well-nourished and well-developed with no distress. The patient is intubated. He has jaundice Bilateral hammertoes and high-arched foot MENTAL STATUS: Subjective CRANIAL NERVES: Pupils are equal, round and reactive.There are corneal reflexes and doll's eyes phenomenon. No signs of facial weakness. There are gagging or coughing reflexes SENSATION: No responses to pain stimuli. MOTOR: Normal tone in the upper and lower extremity. Normal muscle bulk. No fasciculations. He moves the arms and legs a little bit REFLEXES: Deep tendon reflexes are symmetrical. No pathological reflexes. CEREBELLAR/COORDINATION: Deferred GAIT/STATION: deferred laboratory and microbiology Laboratory Tests 07/10/24 10:40 07/10/24 03:50 Test 07/10/24 03:50 Range/Units Serum Glucose 194 H 74-106 mg/dL Problem List Altered mental status Metabolic cephalopathy Hepatic encephalopathy Hypoxic encephalopathy UTI, sepsis, septic shock Liver failure History of Alcoholism Jaundice Respiratory failure Coagulopathy/oral bleeding Thrombocytopenia Anemia GI on case Assessment/Plan Monitoring Supportive treatment ICU care Follow-up labs Stabilize vitals/pressor drip Respiratory support/vent management Thiamine supplementation Lactulose Nephrology on case Pulmonology on case GI on case This medical document was created using an electronic medical record system with [employer] dictation system. Although this document has been carefully reviewed, there may still be some phonetic and typographical errors. These areas are purely typographical due to imperfections of the software programs, and do not reflect any compromise in the patient's medical care. Prognosis guarded Dietary Evaluation Review Comments: 1. Suggest Nepro 1.8 @ 50 ml/hr + 1 pckt ProStat daily; begin @ 10 ml/hr, advance SLOWLY by 10 ml Q12 hrs to goal-rate of 50 ml/hr continuously 2. Provide minimal free water flushes of 30 ml Q6 hrs (120 ml total) for tube patency; adjust PRN/per MD discretion 3. Continue to monitor/replete lytes, especially K, Mag, Phos given high refeeding risk; add 100 mg thiamine daily x 7 days 4. Should lytes drop, maintain current rate of EN and replace to WNL prior to advancing rate of EN further TF Provision: TF at goal to provide 1200 ml total volume, 2160 kcal (+100 kcal via Prostat = 2260 kcal), 97 gm pro (+ 15 gm via Prostat = 112 gm), 15 gm fiber, 1272 mg K, 864 mg Phos, 872 ml H20 (meets 100% est. kcal needs, 100% est. pro needs) Expected Outcomes/Goals: Improved nutritional status, improved hemodynamic stability. Food and Nutrition Intake (Sev: <50% est energy req 5days Fluid Accumulation (Severe): Moderate Fluid Retention Protein Calorie Malnutrition: Severe Is there a minimum of two crit: Yes Plan discussed with: Other CC Plasma Assessment Blood Product Administration S: [id number] ERIC ARIAS MD Jul 10, 2024 15:10
[2024-07-10] MEDS ORDERED: VANCOMYCIN PER PHARMACY 0 MG IV SCH (15:30)
[2024-07-10] MEDS: VANCOMYCIN 500mg/100mL 100 ML IV ONE (15:30)
--- NOTE | 2024-07-10 19:44 | DVHNC2 ---
Other Procedure Procedure PARACENTESIS Indication ASCITES Anesthetic LIDOCAINE Prep CHLORHEXIDINE Informed consent obtained: Yes Risks, benefits, and alternati: Yes Notes A time-out was performed. My hands were washed immediately prior to the procedure. I wore a surgical cap, mask with protective eyewear, sterile gown and sterile gloves throughout the procedure. The area was cleansed and draped in usual sterile fashion using chlorhexidine scrub. Anesthesia was achieved with 1% lidocaine. The LEFT LOWER QUADRANT of the abdomen was prepped and draped in a sterile fashion using chlorhexidine scrub. 1% lidocaine was used to numb the skin, soft tissue and peritoneum. DEEPEST POCKET WAS VISUALIZED WITH ULTRASOUND. The paracentesis catheter was inserted and advanced with negative pressure until YELLOW colored fluid was aspirated. Approximately 60 mL of ascitic fluid was collected and sent for laboratory analysis. The catheter was then connected to the vaccutainer and 4.5 liters of additional ascitic fluid were drained. The catheter was removed and no leaking was noted. A bandaid was placed over the puncture wound. The patient tolerated the procedure well without any immediate complications. Estimated blood loss was 0 ML. Date of Service: Jul 10, 2024 Billing Provider: ASHLEY GALAN MD Common Visit Codes: PROCEDURE ONLY Procedure Codes: 41590-[id number] W/IMAGING NEREYDA BONILLA RESIDENT Jul 10, 2024 19:44
--- NOTE | 2024-07-10 20:14 | DVHPN2 ---
Progress Note - Dictate Date Seen: Jul 10, 2024 Has the PT tested + for MRSA If YES, has PT been informed?: No Medical Necessity Reason Pt with a Central, PICC or Fol: Yes The following are medically ne: [place] Catheter Reason for durham catheter: Strict I&O Subjective Patient is still intubated and sedated Critically ill with GI bleeding, and multisystem involvement. He is still on pressors, minimal vent settings, Receiving supportive care including albumin, blood products, and antibiotics (meropenem and vancomycin). Patient had 200ml of brighter bloody output from his NG tube Hemoglobin was stable at 7.2, platelets are significantly low at 19 K Bilirubin persistently elevated to 20 but transaminases trending down Patient also has some bleeding around his mouth Repeat paracentesis done to re-evaluate SBP vital signs Vital Sign Date Time Temp Pulse Resp B/P (MAP) Pulse Ox O2 Delivery O2 Flow Rate FiO2 07/10/24 19:45 100 30 146/72 (96) 98 07/10/24 19:27 97.9 97.9 07/10/24 18:20 30 07/10/24 17:48 Mechanical Ventilator+ Total Intake and Output 07/09/24 07/09/24 07/10/24 15:00 23:00 07:00 Intake Total 791.25 ml 835 ml 925.8 ml Output Total 150 ml 400 ml Balance 791.25 ml 685 ml 525.8 ml medications Current Medications Medications Dose Ordered Sig/Erik Route Start Time Stop Time Status Last Admin Dose Admin Ondansetron HCl 4 mg Q4HP PRN IV 07/01/24 02:45 Midodrine 10 mg TID@0600,1200,1800 PO 07/01/24 06:00 07/10/24 11:05 10 MG Thiamine HCl 100 mg DAILY PO 07/03/24 10:00 07/10/24 10:15 100 MG Haloperidol Lactate 5 mg Q8HP PRN IM 07/04/24 00:00 07/05/24 22:48 5 MG Rocuronium [place] 50 mg ONCE PRN IV 07/07/24 09:45 Norepinephrine Bitartrate 250 ml @ 3.75 mls/hr Q24H IV 07/07/24 09:30 07/07/24 23:22 11.25 MLS/HR Phenylephrine HCl 250 ml @ 30 mls/hr Q8H20M IV 07/07/24 09:30 Fentanyl Citrate 250 ml @ 2.5 mls/hr Q24H IV 07/07/24 09:30 07/10/24 19:33 35 MLS/HR Hydrocortisone Sodium Succinate 50 mg Q6HR IV 07/07/24 12:00 07/10/24 17:32 50 MG Meropenem 50 ml @ 17 mls/hr DAILY IV 07/08/24 10:00 07/10/24 10:15 17 MLS/HR Vasopressin 20 units/Sodium Chloride 100 ml @ 9 mls/hr Q11H7M IV 07/07/24 12:30 07/10/24 01:52 6 MLS/HR Pantoprazole Sodium 50 ml @ 10 mls/hr Q5H IV 07/07/24 17:15 07/10/24 11:07 10 MLS/HR Octreotide Acetate 500 mcg/ Sodium Chloride 100 ml @ 10 mls/hr Q10H IV 07/07/24 17:15 07/10/24 15:28 10 MLS/HR Lactulose 300 ml Q6HR MA 07/08/24 00:00 07/10/24 05:34 300 ML Lorazepam 1 mg Q5MINP PRN IV 07/08/24 00:00 Vancomycin HCl 0 ml @ 0 mls/hr UD IV 07/08/24 09:30 Propofol 100 ml @ 2.775 mls/ hr Q24H IV 07/08/24 10:00 Potassium Chloride 100 ml @ 50 mls/hr Q2H IV 07/09/24 14:30 07/09/24 18:29 UNV Amino Acids/ Electrolytes/ Dextrose 1,000 ml @ 41 mls/hr DAILY@2200 IV 07/09/24 22:00 07/10/24 21:59 07/09/24 22:00 41 MLS/HR Diagnostic Test (Pha) 1 strip Q6HR 07/10/24 00:00 07/10/24 17:37 1 STRIP Insulin Human Regular FOLLOW SLIDING SCALE Q6HR SC 07/10/24 00:00 07/10/24 17:34 2 UNITS Dextrose 50 ml UD IV 07/10/24 00:00 Amino Acids 0 ml @ 0 mls/hr PER PHARMACY IV 07/10/24 10:00 Dopamine HCl/ Dextrose 250 ml @ 6.953 mls/ hr Q24H IV 07/10/24 11:00 07/10/24 13:40 6.953 MLS/HR Fat Emulsion Intravenous 50 ml/ Sodium Chloride 20 meq/Potassium Acetate 10 meq/ Magnesium Sulfate 4 meq/ Multivitamins 10 ml/Chromium/ Copper/Manganese/ Zinc 1 ml/Insulin Human Regular 4 units/Amino Acids/ Dextrose/Purified Water 822.04 ml @ 34 mls/hr [id number] IV 07/10/24 22:00 07/11/24 21:59 Vancomycin HCl 0 ml @ 0 mls/hr UD IV 07/10/24 15:30 Cancel objective General: intubated sedated; scleral icterus Chest: lung thompson clear to auscultation Heart: RRR, no murmur Abdomen: Eflv-cp-feocyeen-distended, no tenderness to palpation, +BS Skin: +jaundice, multiple bruises laboratory and microbiology Laboratory Tests 07/10/24 10:40 07/10/24 03:50 Test 07/10/24 03:50 Range/Units Serum Glucose 194 H 74-106 mg/dL Problems(with codes): (1) Icterus (2) MSSA (methicillin susceptible Staphylococcus aureus) pneumonia (3) Acute liver failure (4) Anemia, chronic disease (5) Hepatorenal failure (6) Altered mental status (7) Hepatic encephalopathy Prognosis Plan Await results of repeat paracentesis Discuss the possibility of an endoscopy with Dr. Interiano However the patient is currently too unstable to proceed with an endoscopic procedure We will continue supportive care with transfusion of one PRBC and one pack of platelets Patient has received FFP We will monitor serial labs He is on an IV octreotide drip Continue IV Protonix drip Continue nutritional support I will follow up patient with you Prognosis remains guarded Dietary Evaluation Review Comments: 1. Suggest Nepro 1.8 @ 50 ml/hr + 1 pckt ProStat daily; begin @ 10 ml/hr, advance SLOWLY by 10 ml Q12 hrs to goal-rate of 50 ml/hr continuously 2. Provide minimal free water flushes of 30 ml Q6 hrs (120 ml total) for tube patency; adjust PRN/per MD discretion 3. Continue to monitor/replete lytes, especially K, Mag, Phos given high refeeding risk; add 100 mg thiamine daily x 7 days 4. Should lytes drop, maintain current rate of EN and replace to WNL prior to advancing rate of EN further TF Provision: TF at goal to provide 1200 ml total volume, 2160 kcal (+100 kcal via Prostat = 2260 kcal), 97 gm pro (+ 15 gm via Prostat = 112 gm), 15 gm fiber, 1272 mg K, 864 mg Phos, 872 ml H20 (meets 100% est. kcal needs, 100% est. pro needs) Expected Outcomes/Goals: Improved nutritional status, improved hemodynamic stability. Food and Nutrition Intake (Sev: <50% est energy req 5days Fluid Accumulation (Severe): Moderate Fluid Retention Protein Calorie Malnutrition: Severe Is there a minimum of two crit: Yes Plan discussed with: Other (ICU Nurse and Dr Interiano) CC Plasma Assessment Blood Product Administration S: [id number] SHANTAL BILLS MD Jul 10, 2024 20:14
[2024-07-10] MEDS: FAT EMULSION IV NR (21:53)
[2024-07-10] MEDS: POTASSIUM ACETATE IV NR (21:53)
[2024-07-10] MEDS: [UNRECOGNIZED DRUG - OTHER] IV NR (21:53)
[2024-07-10] MEDS: SODIUM CHLORIDE IV NR (21:53)
[2024-07-10 21:55] LABS: Basophils # (auto) 0 10 ^3/uL (0-0.2); Basophils % (auto) 0.2 % (0.0-2.0); Eosinophils # (auto) 0 10 ^3/uL (0-0.8); Hemoglobin 8.2 g/dL (13.5-17.5); Mean Corpuscular Hgb Conc. 34.2 g/dL (32.0-36.0); Platelet Count (auto) 26 10^3/uL (140-450)
[2024-07-10 21:57] LABS: Lymphocytes % (auto) 5.5 % (10.0-50.0); Mean Corpuscular Hemoglobin 31.2 pg (28.0-32.0); Mean Corpuscular Volume 91.3 fL (80.0-100.0); Monocytes % (auto) 5.3 % (0.0-12.0); Neutrophils # (auto) 16.1 10 ^3/uL (1.6-8.6); Nucleated Red Blood Cells % 0.3 %; Red Blood Cells 2.62 10^6/uL (4.5-5.90); Red Cell Distribution Width 16.5 % (11.8-14.3); White Blood Cell 18.1 10^3/uL (4.4-10.8)
--- NOTE | 2024-07-10 22:36 | DVHPN2 ---
Progress Note - Dictate Date Seen: Jul 10, 2024 Has the PT tested + for MRSA If YES, has PT been informed?: No Medical Necessity Reason Pt with a Central, PICC or Fol: Yes The following are medically ne: [place] Catheter Reason for durham catheter: Strict I&O Subjective Patient seen and examined at bedside. Intubated on mechanical ventilator. Overnight events reviewed. vital signs Vital Sign Date Time Temp Pulse Resp B/P (MAP) Pulse Ox O2 Delivery O2 Flow Rate FiO2 07/10/24 22:04 98 30 150/74 (99) 98 30 07/10/24 20:00 97.9 97.9 07/10/24 20:00 Mechanical Ventilator+ Total Intake and Output 07/09/24 07/09/24 07/10/24 15:00 23:00 07:00 Intake Total 791.25 ml 835 ml 925.8 ml Output Total 150 ml 400 ml Balance 791.25 ml 685 ml 525.8 ml medications Current Medications Medications Dose Ordered Sig/Erik Route Start Time Stop Time Status Last Admin Dose Admin Ondansetron HCl 4 mg Q4HP PRN IV 07/01/24 02:45 Midodrine 10 mg TID@0600,1200,1800 PO 07/01/24 06:00 07/10/24 11:05 10 MG Thiamine HCl 100 mg DAILY PO 07/03/24 10:00 07/10/24 10:15 100 MG Haloperidol Lactate 5 mg Q8HP PRN IM 07/04/24 00:00 07/05/24 22:48 5 MG Rocuronium [place] 50 mg ONCE PRN IV 07/07/24 09:45 Norepinephrine Bitartrate 250 ml @ 3.75 mls/hr Q24H IV 07/07/24 09:30 07/07/24 23:22 11.25 MLS/HR Phenylephrine HCl 250 ml @ 30 mls/hr Q8H20M IV 07/07/24 09:30 Fentanyl Citrate 250 ml @ 2.5 mls/hr Q24H IV 07/07/24 09:30 07/10/24 19:33 35 MLS/HR Hydrocortisone Sodium Succinate 50 mg Q6HR IV 07/07/24 12:00 07/10/24 17:32 50 MG Meropenem 50 ml @ 17 mls/hr DAILY IV 07/08/24 10:00 07/10/24 10:15 17 MLS/HR Vasopressin 20 units/Sodium Chloride 100 ml @ 9 mls/hr Q11H7M IV 07/07/24 12:30 07/10/24 01:52 6 MLS/HR Pantoprazole Sodium 50 ml @ 10 mls/hr Q5H IV 07/07/24 17:15 07/10/24 21:54 10 MLS/HR Octreotide Acetate 500 mcg/ Sodium Chloride 100 ml @ 10 mls/hr Q10H IV 07/07/24 17:15 07/10/24 15:28 10 MLS/HR Lactulose 300 ml Q6HR [place] 07/08/24 00:00 07/10/24 05:34 300 ML Lorazepam 1 mg Q5MINP PRN IV 07/08/24 00:00 Vancomycin HCl 0 ml @ 0 mls/hr UD IV 07/08/24 09:30 Propofol 100 ml @ 2.775 mls/ hr Q24H IV 07/08/24 10:00 Potassium Chloride 100 ml @ 50 mls/hr Q2H IV 07/09/24 14:30 07/09/24 18:29 UNV Diagnostic Test (Pha) 1 strip Q6HR 07/10/24 00:00 07/10/24 17:37 1 STRIP Insulin Human Regular FOLLOW SLIDING SCALE Q6HR SC 07/10/24 00:00 07/10/24 17:34 2 UNITS Dextrose 50 ml UD IV 07/10/24 00:00 Amino Acids 0 ml @ 0 mls/hr PER PHARMACY IV 07/10/24 10:00 Dopamine HCl/ Dextrose 250 ml @ 6.953 mls/ hr Q24H IV 07/10/24 11:00 07/10/24 13:40 6.953 MLS/HR Fat Emulsion Intravenous 50 ml/ Sodium Chloride 20 meq/Potassium Acetate 10 meq/ Magnesium Sulfate 4 meq/ Multivitamins 10 ml/Chromium/ Copper/Manganese/ Zinc 1 ml/Insulin Human Regular 4 units/Amino Acids/ Dextrose/Purified Water 822.04 ml @ 34 mls/hr [id number] IV 07/10/24 22:00 07/11/24 21:59 07/10/24 21:53 34 MLS/HR Vancomycin HCl 0 ml @ 0 mls/hr UD IV 07/10/24 15:30 Cancel objective Gen.: Patient lying in bed in medical ICU. Intubated on mechanical ventilator. Head: Normocephalic, atraumatic. Eyes: PERRLA. Ears: Normal external anatomy. Throat: Endotracheal tube and orogastric tube in place. Neck: Supple, trachea midline. Chest: Transmitted breath sounds bilaterally. Decreased air entry bilaterally. No wheezing. Bibasilar crackles. Cardiovascular: Positive S1, positive S2. Regular rate and rhythm. Abdomen: Positive bowel sounds in all 4 quadrants. Soft, nontender, nondistended. : Durham in place. Normal external genitalia. Rectal: Deferred. Skin: Warm, dry. Intact. Extremities: 2+ radial pulses bilaterally. No lower extremity edema. Neuro: Off sedation laboratory and microbiology Laboratory Tests 07/10/24 19:12 07/10/24 03:50 Test 07/10/24 03:50 Range/Units Serum Glucose 194 H 74-106 mg/dL Assessment/Plan Impression: Acute hypercarbic respiratory failure On mechanical ventilator Acute metabolic encephalopathy Shock Liver cirrhosis Hx of ETOH abuse Events: Remains on vent support On AC mode; RR 30, VT 450, PEEP 5, FiO2 30% Off sedation On Fentanyl for analgesia Off pressors Monitor hemodynamics Monitor BP Continue antibiotics Continue IV steroids Continue Octreotide Continue Protonix Bloody gastric secretions from NGT. Monitor hemoglobin - currently 7.3 g/dL Monitor platelets d/t thrombocytopenia S/p PRBC transfusion S/p platelet transfusion GI recs appreciated On dopamine, renally dosed. Plan for hemodialysis tomorrow HD per Nephrology Monitor renal function ABG reviewed, compensated CXR image and report reviewed. Cardiomegaly with mild pulmonary vascular congestion. Devices in place. Labs and imaging reviewed. Rest of plan as noted below. Plan: s/p intubation on mechanical ventilator. On AC mode; RR 30, VT 450, PEEP 5, FiO2 30% Titrate FIO2 to keep O2 saturation above 90%. VAP bundle. Daily ABG and CXR while intubated Off sedation Continue antibiotics. Octreotide drip Protonix drip GI recommendations appreciated Pressors if necessary for hemodynamic support Titrate to keep mean arterial pressure greater than 65 mmHg. Accu-Cheks, ISS PRN. Monitor renal function Monitor electrolytes. Supplement as necessary. Monitor ins and outs. Maintain euvolemia. GI prophylaxis. DVT prophylaxis. Prognosis: Poor given patient's multiple co-morbidities. Condition: Critical Rest of plan per hospitalist and other consultants. A total of 35 minutes of critical care time was spent reviewing the patient record, examining the patient, making a diagnostic and therapeutic plan, discussing this plan with the medical personnel, following up on diagnostic studies and following the patient for clinical stability excluding any and all procedures. At least 50% of this time was spent in direct, [id number] contact. Thank you Dr. Ovalle for allowing me to participate in this patient's care. Further recommendations will depend on the patient's clinical course. Please do not hesitate to contact me if you have any questions or concerns. This medical document was created using an electronic medical record system with [employer] dictation system. Although these documentations are being carefully reviewed, there may still be some phonetic and typographical changes. The errors are purely typographical, due to imperfection on the software program, and do not reflect any compromise in the patient's medical care. Dietary Evaluation Review Comments: 1. Suggest Nepro 1.8 @ 50 ml/hr + 1 pckt ProStat daily; begin @ 10 ml/hr, advance SLOWLY by 10 ml Q12 hrs to goal-rate of 50 ml/hr continuously 2. Provide minimal free water flushes of 30 ml Q6 hrs (120 ml total) for tube patency; adjust PRN/per MD discretion 3. Continue to monitor/replete lytes, especially K, Mag, Phos given high refeeding risk; add 100 mg thiamine daily x 7 days 4. Should lytes drop, maintain current rate of EN and replace to WNL prior to advancing rate of EN further TF Provision: TF at goal to provide 1200 ml total volume, 2160 kcal (+100 kcal via Prostat = 2260 kcal), 97 gm pro (+ 15 gm via Prostat = 112 gm), 15 gm fiber, 1272 mg K, 864 mg Phos, 872 ml H20 (meets 100% est. kcal needs, 100% est. pro needs) Expected Outcomes/Goals: Improved nutritional status, improved hemodynamic stability. Food and Nutrition Intake (Sev: <50% est energy req 5days Fluid Accumulation (Severe): Moderate Fluid Retention Protein Calorie Malnutrition: Severe Is there a minimum of two crit: Yes Plan discussed with: Other (RN) Critical Care Time(min): 35 CC Plasma Assessment Blood Product Administration S: [id number] JOAQUÍN VILLAFANA MD Jul 10, 2024 22:36
[2024-07-11] VITALS (106 sets, daily range): BP systolic 71–187; BP diastolic 30–85; PULSE 79–103; RESP 15–32; TEMP 97–99.4; O2SAT 97–100
[2024-07-11 05:17] LABS: Basophils # (auto) 0 10 ^3/uL (0-0.2); Eosinophils # (auto) 0 10 ^3/uL (0-0.8); Hemoglobin 9.7 g/dL (13.5-17.5); Lymphocytes # (auto) 0.8 10 ^3/uL (0.4-5.4); Monocytes # (auto) 0.7 10 ^3/uL (0-1.3); Monocytes % (auto) 4.4 % (0.0-12.0)
[2024-07-11 05:19] LABS: Eosinophils % (auto) 0.1 % (0.0-7.0); Hematocrit 28.3 % (41.0-53.0); Lymphocytes % (auto) 5.1 % (10.0-50.0); Mean Corpuscular Hemoglobin 31.3 pg (28.0-32.0); Mean Corpuscular Hgb Conc. 34.1 g/dL (32.0-36.0); Mean Corpuscular Volume 91.8 fL (80.0-100.0); Neutrophils # (auto) 14.1 10 ^3/uL (1.6-8.6); Neutrophils % (auto) 90.4 % (37.0-80.0); Nucleated Red Blood Cells % 0.3 %; Platelet Count (auto) 33 10^3/uL (140-450); Red Blood Cells 3.09 10^6/uL (4.5-5.90); Red Cell Distribution Width 16.3 % (11.8-14.3); White Blood Cell 15.6 10^3/uL (4.4-10.8)
[2024-07-11 05:31] LABS: Sodium 138 mmol/L (136-145)
[2024-07-11 05:32] LABS: Anion Gap 15 (5-15); Carbon Dioxide 28 mmol/L (20-31); INR 1.87 (0.9-1.15); Prothrombin Time 18.6 sec (9.3-11.8)
[2024-07-11 05:38] LABS: Chloride 95 mmol/L (98-107); Glucose 209 mg/dL (74-106); Magnesium 2.1 mg/dL (1.6-2.6); Potassium 3.4 mmol/L (3.5-5.1)
[2024-07-11 05:48] LABS: Phosphorus 7.2 mg/dL (2.4-5.1)
[2024-07-11 06:03] LABS: BUN/Creatinine Ratio 17.9 (10.0-20.0)
[2024-07-11 06:12] LABS: Blood Urea Nitrogen 82 mg/dL (9-23)
[2024-07-11] MEDS: SODIUM CHL 0.9% 1000 ML BAG XX ONE (07:00)
[2024-07-11 07:03] LABS: Base Excess 1.1 mmol/L (-2.0-3.0)
--- NOTE | 2024-07-11 10:54 | DVHPN2 ---
Progress Note Date Seen: Jul 11, 2024 Has the PT tested + for MRSA If YES, has PT been informed?: No Medical Necessity Reason Pt with a Central, PICC or Fol: Yes The following are medically ne: [place] Catheter Reason for durham catheter: Strict I&O Subjective Review of Systems: RESPIRATORY:Abnormal Other Systems: Patient seen and examined by myself today in follow-up, patient remained intubated on ventilator Objective vital signs Vital Sign Date Time Temp Pulse Resp B/P (MAP) Pulse Ox O2 Delivery O2 Flow Rate FiO2 07/11/24 10:00 102 07/11/24 10:00 30 07/11/24 10:00 30 99 Mechanical Ventilator+ 07/11/24 09:22 159/81 (107) 07/11/24 07:45 99.4 99.4 Total Intake and Output 07/10/24 07/10/24 07/11/24 15:00 23:00 07:00 Intake Total 1160.8 ml 1350.2 ml 1319.253 ml Output Total 350 ml 350 ml Balance 1160.8 ml 1000.2 ml 969.253 ml medications Current Medications Medications Dose Ordered Sig/Erik Route Start Time Stop Time Status Last Admin Dose Admin Ondansetron HCl 4 mg Q4HP PRN IV 07/01/24 02:45 Midodrine 10 mg TID@0600,1200,1800 PO 07/01/24 06:00 07/10/24 11:05 10 MG Thiamine HCl 100 mg DAILY PO 07/03/24 10:00 07/11/24 10:19 100 MG Haloperidol Lactate 5 mg Q8HP PRN IM 07/04/24 00:00 07/05/24 22:48 5 MG Rocuronium [place] 50 mg ONCE PRN IV 07/07/24 09:45 Norepinephrine Bitartrate 250 ml @ 3.75 mls/hr Q24H IV 07/07/24 09:30 07/07/24 23:22 11.25 MLS/HR Phenylephrine HCl 250 ml @ 30 mls/hr Q8H20M IV 07/07/24 09:30 Fentanyl Citrate 250 ml @ 2.5 mls/hr Q24H IV 07/07/24 09:30 07/11/24 10:18 35 MLS/HR Hydrocortisone Sodium Succinate 50 mg Q6HR IV 07/07/24 12:00 07/11/24 00:07 50 MG Meropenem 50 ml @ 17 mls/hr DAILY IV 07/08/24 10:00 07/11/24 10:19 17 MLS/HR Vasopressin 20 units/Sodium Chloride 100 ml @ 9 mls/hr Q11H7M IV 07/07/24 12:30 07/10/24 01:52 6 MLS/HR Pantoprazole Sodium 50 ml @ 10 mls/hr Q5H IV 07/07/24 17:15 07/11/24 03:00 10 MLS/HR Octreotide Acetate 500 mcg/ Sodium Chloride 100 ml @ 10 mls/hr Q10H IV 07/07/24 17:15 07/11/24 01:17 10 MLS/HR Lactulose 300 ml Q6HR [place] 07/08/24 00:00 07/10/24 05:34 300 ML Lorazepam 1 mg Q5MINP PRN IV 07/08/24 00:00 Vancomycin HCl 0 ml @ 0 mls/hr UD IV 07/08/24 09:30 Propofol 100 ml @ 2.775 mls/ hr Q24H IV 07/08/24 10:00 07/11/24 08:30 2.775 MLS/HR Potassium Chloride 100 ml @ 50 mls/hr Q2H IV 07/09/24 14:30 07/09/24 18:29 UNV Diagnostic Test (Pha) 1 strip Q6HR 07/10/24 00:00 07/11/24 06:10 1 STRIP Insulin Human Regular FOLLOW SLIDING SCALE Q6HR SC 07/10/24 00:00 07/11/24 06:10 8 UNITS Dextrose 50 ml UD IV 07/10/24 00:00 Amino Acids 0 ml @ 0 mls/hr PER PHARMACY IV 07/10/24 10:00 Dopamine HCl/ Dextrose 250 ml @ 6.953 mls/ hr Q24H IV 07/10/24 11:00 07/10/24 13:40 6.953 MLS/HR Fat Emulsion Intravenous 50 ml/ Sodium Chloride 20 meq/Potassium Acetate 10 meq/ Magnesium Sulfate 4 meq/ Multivitamins 10 ml/Chromium/ Copper/Manganese/ Zinc 1 ml/Insulin Human Regular 4 units/Amino Acids/ Dextrose/Purified Water 822.04 ml @ 34 mls/hr [id number] IV 07/10/24 22:00 07/11/24 21:59 07/10/24 21:53 34 MLS/HR Vancomycin HCl 0 ml @ 0 mls/hr UD IV 07/10/24 15:30 Cancel Bumetanide 25 mg/ Miscellaneous 100 ml @ 4 mls/hr Q24H IV 07/11/24 11:00 UNV Metolazone 10 mg DAILY NG 07/12/24 10:00 UNV Examination: LUNGS:Normal, CVS:Normal, MSK:Abnormal laboratory and microbiology Laboratory Tests 07/11/24 05:00 Test 07/11/24 05:00 Range/Units Serum Glucose 209 H 74-106 mg/dL Microbiology Date/Time Source Procedure Growth Status 07/07/24 09:58 Trachea Gram Stain - Final Resulted 07/07/24 09:58 Respiratory Culture - Preliminary Presumptive Julissa albicans Resulted 07/01/24 17:21 Voided Urine Urine Culture - Final Enterococcus faecium Complete 07/01/24 08:53 Ascities Fluid Gram Stain - Final Complete 07/01/24 08:53 Ascities Fluid Body Fluid Culture - Final Complete 06/30/24 21:52 Blood Blood Culture - Final NO GROWTH AFTER 5 DAYS OF INCUBATION. Complete Problem List/Assessment/Plan Problem List/Assessment/Plan Acute kidney injury----ATN in the setting of hypotension/ blood loss, anuric requiring initiation of intermittent hemodialysis Acute respiratory failure, patient intubated on ventilator GI bleeding Septic shock Lactic acidosis Hypokalemia Hepatic encephalopathy Decompensated liver cirrhosis status post paracentesis Chronic alcoholism Hypoglycemia Recommendations Hemodialysis today, use no heparin Epogen 54714 subQ with hemodialysis Albumin 25% p.r.n. hemodialysis Increased urine output Hyperkalemia resolved Durham catheter Strict I&Os DC IV fluid IV antibiotics Low-dose dopamine KCL replacement Bumex 1 milligram/hour infusion Metolazone 10 mg NG tube q.day IV pressor for blood pressure support Maintain map greater than 65 Packed red blood cell transfusion p.r.n. We will continue to follow Plan discussed with: Other (Nurse) My Orders My Orders Orders - CHARLIE HALE MD Procedure Category Date Status Time Dopamine 1600mcg/Ml PHA 07/10/24 In Process D5W 11:00 Dialysis Nursing [place] 07/11/24 In Process Message 07:00 Document Fluid Input [place] 07/11/24 In Process And Outpu 07:00 Epoetin Rolo-Epbx PHA 07/11/24 In Process (Retacrit) 21:00 Hemodialysis Orders ORDERS 07/11/24 Transmitted 10:49 Give Un-Diluted PHA 07/11/24 Logged (Gi... W/Bumetanide 11:00 Metolazone (Zaroxolyn) PHA 07/12/24 Logged 10:00 Dietary Evaluation Review Comments: 1. Suggest Nepro 1.8 @ 50 ml/hr + 1 pckt ProStat daily; begin @ 10 ml/hr, advance SLOWLY by 10 ml Q12 hrs to goal-rate of 50 ml/hr continuously 2. Provide minimal free water flushes of 30 ml Q6 hrs (120 ml total) for tube patency; adjust PRN/per MD discretion 3. Continue to monitor/replete lytes, especially K, Mag, Phos given high refeeding risk; add 100 mg thiamine daily x 7 days 4. Should lytes drop, maintain current rate of EN and replace to WNL prior to advancing rate of EN further TF Provision: TF at goal to provide 1200 ml total volume, 2160 kcal (+100 kcal via Prostat = 2260 kcal), 97 gm pro (+ 15 gm via Prostat = 112 gm), 15 gm fiber, 1272 mg K, 864 mg Phos, 872 ml H20 (meets 100% est. kcal needs, 100% est. pro needs) Expected Outcomes/Goals: Improved nutritional status, improved hemodynamic stability. Food and Nutrition Intake (Sev: <50% est energy req 5days Fluid Accumulation (Severe): Moderate Fluid Retention Protein Calorie Malnutrition: Severe Is there a minimum of two crit: Yes CC Plasma Assessment Blood Product Administration S: [id number] CHARLIE HALE MD Jul 11, 2024 10:54
--- NOTE | 2024-07-11 10:54 | MEDREC ---
[facility] ASP Intervention Section I [facility] ASP Intervention: Review courses of therapy (The preliminary Trachea culture showed Presumptive Julissa albicans.Please consider adding an antifungal if clinically appropriate) JORGE LUIS GABRIEL PHA Jul 11, 2024 10:54
--- NOTE | 2024-07-11 11:39 | DVHPN2 ---
Progress Note - Dictate Date Seen: Jul 11, 2024 Has the PT tested + for MRSA If YES, has PT been informed?: No Medical Necessity Reason Pt with a Central, PICC or Fol: Yes The following are medically ne: [place] Catheter Reason for durham catheter: Strict I&O Subjective Patient seen and examined Overnight events reviewed vital signs Vital Sign Date Time Temp Pulse Resp B/P (MAP) Pulse Ox O2 Delivery O2 Flow Rate FiO2 07/11/24 10:00 102 07/11/24 10:00 30 07/11/24 10:00 30 99 Mechanical Ventilator+ 07/11/24 09:22 159/81 (107) 07/11/24 07:45 99.4 99.4 Total Intake and Output 07/10/24 07/10/24 07/11/24 14:59 22:59 06:59 Intake Total 1153.9 ml 1363.2 ml 1319.2 ml Output Total 350 ml 350 ml Balance 1153.9 ml 1013.2 ml 969.2 ml medications Current Medications Medications Dose Ordered Sig/Erik Route Start Time Stop Time Status Last Admin Dose Admin Ondansetron HCl 4 mg Q4HP PRN IV 07/01/24 02:45 Midodrine 10 mg TID@0600,1200,1800 PO 07/01/24 06:00 07/10/24 11:05 10 MG Thiamine HCl 100 mg DAILY PO 07/03/24 10:00 07/11/24 10:19 100 MG Haloperidol Lactate 5 mg Q8HP PRN IM 07/04/24 00:00 07/05/24 22:48 5 MG Rocuronium [place] 50 mg ONCE PRN IV 07/07/24 09:45 Norepinephrine Bitartrate 250 ml @ 3.75 mls/hr Q24H IV 07/07/24 09:30 07/07/24 23:22 11.25 MLS/HR Phenylephrine HCl 250 ml @ 30 mls/hr Q8H20M IV 07/07/24 09:30 Fentanyl Citrate 250 ml @ 2.5 mls/hr Q24H IV 07/07/24 09:30 07/11/24 10:18 35 MLS/HR Hydrocortisone Sodium Succinate 50 mg Q6HR IV 07/07/24 12:00 07/11/24 00:07 50 MG Meropenem 50 ml @ 17 mls/hr DAILY IV 07/08/24 10:00 07/11/24 10:19 17 MLS/HR Vasopressin 20 units/Sodium Chloride 100 ml @ 9 mls/hr Q11H7M IV 07/07/24 12:30 07/10/24 01:52 6 MLS/HR Pantoprazole Sodium 50 ml @ 10 mls/hr Q5H IV 07/07/24 17:15 07/11/24 03:00 10 MLS/HR Octreotide Acetate 500 mcg/ Sodium Chloride 100 ml @ 10 mls/hr Q10H IV 07/07/24 17:15 07/11/24 01:17 10 MLS/HR Lactulose 300 ml Q6HR [place] 07/08/24 00:00 07/10/24 05:34 300 ML Lorazepam 1 mg Q5MINP PRN IV 07/08/24 00:00 Vancomycin HCl 0 ml @ 0 mls/hr UD IV 07/08/24 09:30 Propofol 100 ml @ 2.775 mls/ hr Q24H IV 07/08/24 10:00 07/11/24 08:30 2.775 MLS/HR Potassium Chloride 100 ml @ 50 mls/hr Q2H IV 07/09/24 14:30 07/09/24 18:29 UNV Diagnostic Test (Pha) 1 strip Q6HR 07/10/24 00:00 07/11/24 06:10 1 STRIP Insulin Human Regular FOLLOW SLIDING SCALE Q6HR SC 07/10/24 00:00 07/11/24 06:10 8 UNITS Dextrose 50 ml UD IV 07/10/24 00:00 Amino Acids 0 ml @ 0 mls/hr PER PHARMACY IV 07/10/24 10:00 Dopamine HCl/ Dextrose 250 ml @ 6.953 mls/ hr Q24H IV 07/10/24 11:00 07/10/24 13:40 6.953 MLS/HR Fat Emulsion Intravenous 50 ml/ Sodium Chloride 20 meq/Potassium Acetate 10 meq/ Magnesium Sulfate 4 meq/ Multivitamins 10 ml/Chromium/ Copper/Manganese/ Zinc 1 ml/Insulin Human Regular 4 units/Amino Acids/ Dextrose/Purified Water 822.04 ml @ 34 mls/hr [id number] IV 07/10/24 22:00 07/11/24 21:59 07/10/24 21:53 34 MLS/HR Vancomycin HCl 0 ml @ 0 mls/hr UD IV 07/10/24 15:30 Cancel Bumetanide 25 mg/ Miscellaneous 100 ml @ 4 mls/hr Q24H IV 07/11/24 11:00 UNV Metolazone 10 mg DAILY NG 07/12/24 10:00 UNV Potassium Chloride 100 ml @ 50 mls/hr Q2H IV 07/11/24 13:00 07/11/24 16:59 UNV laboratory and microbiology Laboratory Tests 07/11/24 05:00 Test 07/11/24 05:00 Range/Units Serum Glucose 209 H 74-106 mg/dL Assessment/Plan Impression Acute hypoxemic respiratory failure Altered mental status Thrombocytopenia Liver cirrhosis Patient seen and examined in ICU Events On mechanical ventilation S/p intubation PEEP 5, FiO2 30% S/p blood product transfusion Labs and imaging reviewed ABG reviewed Management Vent support Titrate to maintain sats 90% or above Sedation for vent synchrony Antibiotics Bronchodilators Monitor renal function Monitor electrolytes Supplement as needed Pressors as needed for hemodynamic support To maintain a mean arterial pressure of 65 mmHg Transfuse blood products prior to procedures Prognosis extremely poor Further family discussion pending DVT prophylaxis Critical care time 35 minutes Dietary Evaluation Review Comments: 1. Suggest Nepro 1.8 @ 50 ml/hr + 1 pckt ProStat daily; begin @ 10 ml/hr, advance SLOWLY by 10 ml Q12 hrs to goal-rate of 50 ml/hr continuously 2. Provide minimal free water flushes of 30 ml Q6 hrs (120 ml total) for tube patency; adjust PRN/per MD discretion 3. Continue to monitor/replete lytes, especially K, Mag, Phos given high refeeding risk; add 100 mg thiamine daily x 7 days 4. Should lytes drop, maintain current rate of EN and replace to WNL prior to advancing rate of EN further TF Provision: TF at goal to provide 1200 ml total volume, 2160 kcal (+100 kcal via Prostat = 2260 kcal), 97 gm pro (+ 15 gm via Prostat = 112 gm), 15 gm fiber, 1272 mg K, 864 mg Phos, 872 ml H20 (meets 100% est. kcal needs, 100% est. pro needs) Expected Outcomes/Goals: Improved nutritional status, improved hemodynamic stability. Food and Nutrition Intake (Sev: <50% est energy req 5days Fluid Accumulation (Severe): Moderate Fluid Retention Protein Calorie Malnutrition: Severe Is there a minimum of two crit: Yes Plan discussed with: Other (Rn) CC Plasma Assessment Blood Product Administration S: [id number] LUKE NOLASCO MD Jul 11, 2024 11:39
[2024-07-11 11:49] LABS: Eosinophils # (auto) 0 10 ^3/uL (0-0.8); Monocytes # (auto) 0.7 10 ^3/uL (0-1.3); Neutrophils # (auto) 12.9 10 ^3/uL (1.6-8.6); Red Cell Distribution Width 16.1 % (11.8-14.3)
[2024-07-11 11:51] LABS: Basophils # (auto) 0 10 ^3/uL (0-0.2); Basophils % (auto) 0.2 % (0.0-2.0); Hematocrit 27.6 % (41.0-53.0); Hemoglobin 9.6 g/dL (13.5-17.5); Lymphocytes # (auto) 0.9 10 ^3/uL (0.4-5.4); Lymphocytes % (auto) 6.5 % (10.0-50.0); Mean Corpuscular Hemoglobin 31.8 pg (28.0-32.0); Mean Corpuscular Hgb Conc. 34.8 g/dL (32.0-36.0); Mean Corpuscular Volume 91.5 fL (80.0-100.0); Neutrophils % (auto) 88.3 % (37.0-80.0); Nucleated Red Blood Cells % 0.1 %; Platelet Count (auto) 27 10^3/uL (140-450); Red Blood Cells 3.02 10^6/uL (4.5-5.90); White Blood Cell 14.6 10^3/uL (4.4-10.8)
--- NOTE | 2024-07-11 12:22 | DVHPN2 ---
Assessment/Plan Assessment/Plan ICU progress note 53-year-old male with liver cirrhosis due to alcohol use and CKD presented with altered mental status, found to have urosepsis, SBP and possible GI bleeding. He developed sepsis, worsening renal function, and required dialysis for uremia and hyperkalemia. Rapid deterioration on 07/07 led to intubation, vasopressors, and sedation; prognosis discussed with family. Patient remains critically ill with GI bleeding, and multisystem involvement. He is still on pressors, minimal vent settings, and receiving supportive care including albumin, blood products, and antibiotics (meropenem and vancomycin). Seen patient during rounds, ~250cc NG output of bloody secretion, given FFP and platelets, still usntable to scope. 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 Azotemia Acute upper GI bleed, variceal bleed possible Severe anemia req transfusion Severe thrombocytopenia with bleeding req transfusion Alcoholic cirrhosis Enterococcus UTI SBP Severe malnutrition C/w mechanical ventilator c/w prop and fent for vent synchrony C/w vaso for renal protection per nephro C/w octreotide and protonix drip C/w vanc and [place] C/w S[employer] MEDICAL TRANSCRIPTIONIST per renal c/w stress dose steroid for 5 days vitamin K given start TPN GI recs appreciated CBC q12, daily coags no need to trend [place] resume lactulose enema plan for para tomorrow plan to pull more fluid Lines R IJ HD non tunneled L IJ TLC L radial a line durham ETT NGT Keep K 4, Mg 2 Diet NPO exc meds DVT ppx on hold bleeding GI PPX on protonix drip condition critical prognosis grim full code critical care time 60 minutes Plan discussed with: Other My Orders Orders - ASHLEY GALAN MD Procedure Category Date Status Time Amino Acid PHA 07/10/24 In Process Infusion... W/Fat 22:00 Tpn Per Pharmacy [facility] 07/10/24 In Process 22:00 Insert Midline ORDERS 07/10/24 Transmitted 15:30 Pheresis Platelets BBK 07/10/24 Logged 21:22 Chest Portable XY 07/11/24 Logged 08:01 Date of Service: Jul 11, 2024 Billing Provider: ASHLEY GALAN MD Common Visit Codes: [id number] CARE 30-74 MIN ASHLEY GALAN MD Jul 11, 2024 12:21
--- NOTE | 2024-07-11 13:20 | DVH ---
EXAM: XR Chest, 1 View CLINICAL INDICATION: intubated/sedated TECHNIQUE: Frontal view of the chest. COMPARISON: XY CHEST XRAY 1 VIEW on DOS: 07/10/24, XY CHEST XRAY 1 VIEW on DOS: 07/09/24, XY CHEST XR AY 1 VIEW on DOS: 07/08/24, XY CHEST XRAY 1 VIEW on DOS: 07/07/24, XY CHEST XRAY 1 VIEW on DOS: 07/07/24 FINDINGS: LUNGS AND PLEURAL SPACES: Pulmonary congestion and edema. Pneumonia cannot be excluded. No pneumot horax. HEART: Unremarkable. No cardiomegaly. MEDIASTINUM: Unremarkable. Normal mediastinal contour. BONES/JOINTS: Unremarkable. No acute fracture. TUBES, LINES AND DEVICES: The endotracheal tube (ETT) is in satisfactory position. Right internal jugular central venous catheter tip in the superior vena cava. Left internal jugular central venous catheter tip in the superior vena cava. Enteric tube tip in the stomach. OTHER FINDINGS: . . IMPRESSION: Pulmonary congestion and edema. Pneumonia cannot be excluded.
[2024-07-11 14:57] LABS: Albumin 3.3 g/dL (3.2-4.8)
[2024-07-11 15:03] LABS: Bilirubin, Total 24.4 mg/dL (0.2-1.0)
[2024-07-11] MEDS: POTASSIUM CHL 20MEQ/50ML 50 ML IV SCH (16:27)
[2024-07-11] MEDS: EPOETIN ALFA-EPBX 10,000 UNIT/1ML VIAL SC ONE (18:32)
[2024-07-11] MEDS: BUMETANIDE INJECTION 25 MG in GIVE UN-DILUTED 0 ML IV SCH (19:04)
[2024-07-11] MEDS: TPN PER PHARMACY IV NR (22:44)
[2024-07-11 23:19] LABS: Basophils # (auto) 0 10 ^3/uL (0-0.2); Eosinophils # (auto) 0 10 ^3/uL (0-0.8); Hemoglobin 8.7 g/dL (13.5-17.5); Lymphocytes # (auto) 0.9 10 ^3/uL (0.4-5.4)
[2024-07-11 23:20] LABS: Basophils % (auto) 0.2 % (0.0-2.0); Hematocrit 25.3 % (41.0-53.0); Lymphocytes % (auto) 6.2 % (10.0-50.0); Mean Corpuscular Hemoglobin 31.2 pg (28.0-32.0); Mean Corpuscular Hgb Conc. 34.3 g/dL (32.0-36.0); Mean Corpuscular Volume 91.1 fL (80.0-100.0); Monocytes # (auto) 0.8 10 ^3/uL (0-1.3); Monocytes % (auto) 5.8 % (0.0-12.0); Neutrophils # (auto) 12.2 10 ^3/uL (1.6-8.6); Neutrophils % (auto) 87.8 % (37.0-80.0); Nucleated Red Blood Cells % 0.1 %; Red Blood Cells 2.78 10^6/uL (4.5-5.90); Red Cell Distribution Width 16.1 % (11.8-14.3); White Blood Cell 13.9 10^3/uL (4.4-10.8)
[2024-07-11 23:21] LABS: Platelet Count (auto) 31 10^3/uL (140-450)
--- NOTE | 2024-07-11 23:36 | DVHPN2 ---
Progress Note - Dictate Date Seen: Jul 11, 2024 Has the PT tested + for MRSA If YES, has PT been informed?: No Medical Necessity Reason Pt with a Central, PICC or Fol: Yes The following are medically ne: [place] Catheter Reason for durham catheter: Strict I&O Subjective No further fresh blood noted from the NG tube Patient just have some coffee-ground and dark material total of about 75 this shift and about 150 during the day shift Patient is still intubated and sedated Critically ill with multisystem involvement. He is still on pressors, minimal vent settings, Receiving supportive care including albumin, blood products, and antibiotics (meropenem and vancomycin). Hemoglobin was stable at 8.7,, platelets improved to 31 K Bilirubin persistently elevated to 24 but transaminases trending down vital signs Vital Sign Date Time Temp Pulse Resp B/P (MAP) Pulse Ox O2 Delivery O2 Flow Rate FiO2 07/11/24 22:05 82 30 118/57 (77) 97 30 07/11/24 18:00 Mechanical Ventilator 07/11/24 17:50 97.9 97.9 Total Intake and Output 07/10/24 07/10/24 07/11/24 15:00 23:00 07:00 Intake Total 1160.8 ml 1350.2 ml 1319.253 ml Output Total 350 ml 350 ml Balance 1160.8 ml 1000.2 ml 969.253 ml medications Current Medications Medications Dose Ordered Sig/Erik Route Start Time Stop Time Status Last Admin Dose Admin Ondansetron HCl 4 mg Q4HP PRN IV 07/01/24 02:45 Midodrine 10 mg TID@0600,1200,1800 PO 07/01/24 06:00 07/11/24 18:24 10 MG Thiamine HCl 100 mg DAILY PO 07/03/24 10:00 07/11/24 10:19 100 MG Haloperidol Lactate 5 mg Q8HP PRN IM 07/04/24 00:00 07/05/24 22:48 5 MG Rocuronium [place] 50 mg ONCE PRN IV 07/07/24 09:45 Norepinephrine Bitartrate 250 ml @ 3.75 mls/hr Q24H IV 07/07/24 09:30 07/11/24 16:47 3.75 MLS/HR Phenylephrine HCl 250 ml @ 30 mls/hr Q8H20M IV 07/07/24 09:30 Fentanyl Citrate 250 ml @ 2.5 mls/hr Q24H IV 07/07/24 09:30 07/11/24 17:11 30 MLS/HR Hydrocortisone Sodium Succinate 50 mg Q6HR IV 07/07/24 12:00 07/11/24 22:57 50 MG Meropenem 50 ml @ 17 mls/hr DAILY IV 07/08/24 10:00 07/11/24 10:19 17 MLS/HR Vasopressin 20 units/Sodium Chloride 100 ml @ 9 mls/hr Q11H7M IV 07/07/24 12:30 07/10/24 01:52 6 MLS/HR Pantoprazole Sodium 50 ml @ 10 mls/hr Q5H IV 07/07/24 17:15 07/11/24 20:12 10 MLS/HR Octreotide Acetate 500 mcg/ Sodium Chloride 100 ml @ 10 mls/hr Q10H IV 07/07/24 17:15 07/11/24 22:56 10 MLS/HR Lactulose 300 ml Q6HR [place] 07/08/24 00:00 07/11/24 23:03 300 ML Lorazepam 1 mg Q5MINP PRN IV 07/08/24 00:00 Vancomycin HCl 0 ml @ 0 mls/hr UD IV 07/08/24 09:30 Propofol 100 ml @ 2.775 mls/ hr Q24H IV 07/08/24 10:00 07/11/24 17:12 2.775 MLS/HR Potassium Chloride 100 ml @ 50 mls/hr Q2H IV 07/09/24 14:30 07/09/24 18:29 UNV Diagnostic Test (Pha) 1 strip Q6HR 07/10/24 00:00 07/11/24 23:02 1 STRIP Insulin Human Regular FOLLOW SLIDING SCALE Q6HR SC 07/10/24 00:00 07/11/24 18:30 4 UNITS Dextrose 50 ml UD IV 07/10/24 00:00 Amino Acids 0 ml @ 0 mls/hr PER PHARMACY IV 07/10/24 10:00 Vancomycin HCl 0 ml @ 0 mls/hr UD IV 07/10/24 15:30 Cancel Bumetanide 25 mg/ Miscellaneous 100 ml @ 4 mls/hr Q24H IV 07/11/24 11:00 07/11/24 19:04 4 MLS/HR Metolazone 10 mg DAILY NG 07/12/24 10:00 Sodium Chloride 40 meq/Potassium Chloride 40 meq/ Magnesium Sulfate 6 meq/ Multivitamins 10 ml/Insulin Human Regular 12 units/ Amino Acids/ Dextrose 941.62 ml @ 40 mls/hr [id number] IV 07/11/24 22:00 07/12/24 21:59 07/11/24 22:44 40 MLS/HR objective General: intubated sedated; scleral icterus Chest: lung thompson clear to auscultation Heart: RRR, no murmur Abdomen: Kvhv-qp-umcplmkh-distended, no tenderness to palpation, +BS Skin: +jaundice, multiple bruises laboratory and microbiology Laboratory Tests 07/11/24 23:10 07/11/24 05:00 Test 07/11/24 05:00 Range/Units Serum Glucose 209 H 74-106 mg/dL Problems(with codes): (1) Icterus (2) Hypotension (3) Acute liver failure (4) GI bleed (5) Alcohol intoxication (6) Severe malnutrition (7) Anemia, chronic disease (8) Hepatorenal failure (9) Altered mental status (10) Hepatic encephalopathy Prognosis Plan Patient tentatively scheduled for a paracentesis tomorrow after receiving platelet transfusions Continue IV Protonix drip Continue IV octreotide drip Continue to monitor labs patient is still currently unstable for endoscopy and I am waiting for his thrombocytopenia to ill-appearing Patient's upper GI bleed appears to be resolving after he was transfused FFP and platelets Dietary Evaluation Review Comments: 1. Suggest Nepro 1.8 @ 50 ml/hr + 1 pckt ProStat daily; begin @ 10 ml/hr, advance SLOWLY by 10 ml Q12 hrs to goal-rate of 50 ml/hr continuously 2. Provide minimal free water flushes of 30 ml Q6 hrs (120 ml total) for tube patency; adjust PRN/per MD discretion 3. Continue to monitor/replete lytes, especially K, Mag, Phos given high refeeding risk; add 100 mg thiamine daily x 7 days 4. Should lytes drop, maintain current rate of EN and replace to WNL prior to advancing rate of EN further TF Provision: TF at goal to provide 1200 ml total volume, 2160 kcal (+100 kcal via Prostat = 2260 kcal), 97 gm pro (+ 15 gm via Prostat = 112 gm), 15 gm fiber, 1272 mg K, 864 mg Phos, 872 ml H20 (meets 100% est. kcal needs, 100% est. pro needs) Expected Outcomes/Goals: Improved nutritional status, improved hemodynamic stability. Food and Nutrition Intake (Sev: <50% est energy req 5days Fluid Accumulation (Severe): Moderate Fluid Retention Protein Calorie Malnutrition: Severe Is there a minimum of two crit: Yes Plan discussed with: Other (ICU Nurse) CC Plasma Assessment Blood Product Administration S: [id number] SHANTAL BILLS MD Jul 11, 2024 23:36
[2024-07-12] VITALS (106 sets, daily range): BP systolic 77–298; BP diastolic 34–282; PULSE 78–99; RESP 19–31; TEMP 97.2–97.8; O2SAT 95–100
[2024-07-12 04:15] LABS: Alkaline Phosphatase 81 U/L (46-116); Anion Gap 16 (5-15); Calcium 9.4 mg/dL (8.7-10.4); Carbon Dioxide 25 mmol/L (20-31); Sodium 137 mmol/L (136-145)
[2024-07-12 04:33] LABS: Albumin 2.7 g/dL (3.2-4.8); Bilirubin, Total 20.3 mg/dL (0.2-1.0); Chloride 96 mmol/L (98-107); Glucose 226 mg/dL (74-106); Phosphorus 6.6 mg/dL (2.4-5.1); Potassium 3.4 mmol/L (3.5-5.1)
[2024-07-12 04:45] LABS: BUN/Creatinine Ratio 20.1 (10.0-20.0)
[2024-07-12 05:02] LABS: INR 2.12 (0.9-1.15); Partial Thromboplastin Time 48.6 SEC (24.5-34.5); Prothrombin Time 20.9 sec (9.3-11.8)
[2024-07-12 05:23] LABS: Alanine Aminotransferase 52 U/L (7-40); Aspartate Aminotransferase 49 U/L (13-40); Blood Urea Nitrogen 98 mg/dL (9-23)
--- NOTE | 2024-07-12 05:44 | DVH ---
CHEST RADIOGRAPH Indication: INTUBATED Technique: Single frontal view of the chest was obtained COMPARISON: XY CHEST PORTABLE on DOS: 07/11/24, XY CHEST XRAY 1 VIEW on DOS: 07/10/24, XY CHEST XRAY 1 VIEW on DOS: 07/09/24, XY CHEST XRAY 1 VIEW on DOS: 07/08/24, XY CHEST XRAY 1 VIEW on DOS: 07/07/24 FINDINGS: Lines and Tubes: Unchanged. Lungs: Mild residual bibasilar pulmonary airspace disease. The upper lung zones are clear. No eviden ce of focal consolidation. Pleura: No effusion. No pneumothorax. Cardiomediastinal contours: Unremarkable Bones: Unremarkable IMPRESSION: 1. Mild bibasilar pulmonary airspace disease. 2. Lines and tubes unchanged.
[2024-07-12] MEDS: POTASSIUM CHL 20MEQ/50ML 50 ML IV ONE (06:13)
[2024-07-12 07:28] LABS: Base Excess -0.3 mmol/L (-2.0-3.0)
[2024-07-12 10:42] LABS: Basophils # (auto) 0.1 10 ^3/uL (0-0.2); Eosinophils # (auto) 0 10 ^3/uL (0-0.8); Hemoglobin 9.4 g/dL (13.5-17.5)
[2024-07-12 10:43] LABS: Basophils % (auto) 0.6 % (0.0-2.0); Hematocrit 27.5 % (41.0-53.0); Lymphocytes # (auto) 0.9 10 ^3/uL (0.4-5.4); Lymphocytes % (auto) 4.5 % (10.0-50.0); Mean Corpuscular Hemoglobin 31.6 pg (28.0-32.0); Mean Corpuscular Hgb Conc. 34.2 g/dL (32.0-36.0); Mean Corpuscular Volume 92.4 fL (80.0-100.0); Monocytes % (auto) 5.1 % (0.0-12.0); Neutrophils # (auto) 17.1 10 ^3/uL (1.6-8.6); Neutrophils % (auto) 89.8 % (37.0-80.0); Platelet Count (auto) 41 10^3/uL (140-450); Red Blood Cells 2.97 10^6/uL (4.5-5.90); Red Cell Distribution Width 16.5 % (11.8-14.3); White Blood Cell 19.1 10^3/uL (4.4-10.8)
[2024-07-12] MEDS: metOLazone 5 MG TAB NG SCH (11:42)
--- NOTE | 2024-07-12 12:11 | DVHPN2 ---
Progress Note - Dictate Date Seen: Jul 12, 2024 Has the PT tested + for MRSA If YES, has PT been informed?: No Medical Necessity Reason Pt with a Central, PICC or Fol: Yes The following are medically ne: [place] Catheter Reason for durham catheter: Strict I&O Subjective Patient seen and examined Overnight events reviewed vital signs Vital Sign Date Time Temp Pulse Resp B/P (MAP) Pulse Ox O2 Delivery O2 Flow Rate FiO2 07/12/24 11:42 106/51 07/12/24 09:49 81 30 99 30 07/12/24 09:30 97.8 97.8 07/12/24 06:00 Mechanical Ventilator+ Total Intake and Output 07/11/24 07/11/24 07/12/24 14:59 22:59 06:59 Intake Total 836.071 ml 1095.875 ml 814.375 ml Output Total 350 ml 625 ml Balance 836.071 ml 745.875 ml 189.375 ml medications Current Medications Medications Dose Ordered Sig/Erik Route Start Time Stop Time Status Last Admin Dose Admin Ondansetron HCl 4 mg Q4HP PRN IV 07/01/24 02:45 Midodrine 10 mg TID@0600,1200,1800 PO 07/01/24 06:00 07/12/24 06:13 10 MG Thiamine HCl 100 mg DAILY PO 07/03/24 10:00 07/12/24 11:42 100 MG Haloperidol Lactate 5 mg Q8HP PRN IM 07/04/24 00:00 07/05/24 22:48 5 MG Rocuronium [place] 50 mg ONCE PRN IV 07/07/24 09:45 Norepinephrine Bitartrate 250 ml @ 3.75 mls/hr Q24H IV 07/07/24 09:30 07/11/24 16:47 3.75 MLS/HR Phenylephrine HCl 250 ml @ 30 mls/hr Q8H20M IV 07/07/24 09:30 Fentanyl Citrate 250 ml @ 2.5 mls/hr Q24H IV 07/07/24 09:30 07/12/24 09:32 30 MLS/HR Hydrocortisone Sodium Succinate 50 mg Q6HR IV 07/07/24 12:00 07/12/24 06:13 50 MG Meropenem 50 ml @ 17 mls/hr DAILY IV 07/08/24 10:00 07/12/24 10:00 17 MLS/HR Vasopressin 20 units/Sodium Chloride 100 ml @ 9 mls/hr Q11H7M IV 07/07/24 12:30 07/10/24 01:52 6 MLS/HR Pantoprazole Sodium 50 ml @ 10 mls/hr Q5H IV 07/07/24 17:15 07/12/24 06:18 10 MLS/HR Octreotide Acetate 500 mcg/ Sodium Chloride 100 ml @ 10 mls/hr Q10H IV 07/07/24 17:15 07/12/24 11:46 10 MLS/HR Lactulose 300 ml Q6HR [place] 07/08/24 00:00 07/12/24 06:14 300 ML Lorazepam 1 mg Q5MINP PRN IV 07/08/24 00:00 Vancomycin HCl 0 ml @ 0 mls/hr UD IV 07/08/24 09:30 Propofol 100 ml @ 2.775 mls/ hr Q24H IV 07/08/24 10:00 07/11/24 17:12 2.775 MLS/HR Potassium Chloride 100 ml @ 50 mls/hr Q2H IV 07/09/24 14:30 07/09/24 18:29 UNV Diagnostic Test (Pha) 1 strip Q6HR 07/10/24 00:00 07/12/24 06:17 1 STRIP Insulin Human Regular FOLLOW SLIDING SCALE Q6HR [place] 07/10/24 00:00 07/12/24 06:18 8 UNITS Dextrose 50 ml UD IV 07/10/24 00:00 Amino Acids 0 ml @ 0 mls/hr PER PHARMACY IV 07/10/24 10:00 Vancomycin HCl 0 ml @ 0 mls/hr UD IV 07/10/24 15:30 Cancel Bumetanide 25 mg/ Miscellaneous 100 ml @ 4 mls/hr Q24H IV 07/11/24 11:00 07/12/24 11:00 4 MLS/HR Metolazone 10 mg DAILY NG 07/12/24 10:00 07/12/24 11:42 10 MG Sodium Chloride 40 meq/Potassium Chloride 40 meq/ Magnesium Sulfate 6 meq/ Multivitamins 10 ml/Insulin Human Regular 12 units/ Amino Acids/ Dextrose 941.62 ml @ 40 mls/hr [id number] IV 07/11/24 22:00 07/12/24 21:59 07/11/24 22:44 40 MLS/HR Sodium Chloride 60 meq/Potassium Chloride 80 meq/ Magnesium Sulfate 8 meq/ Multivitamins 10 ml/Insulin Human Regular 18 units/ Amino Acids/ Dextrose 1,167.18 ml @ 48 mls/hr [id number] IV 07/12/24 22:00 07/13/24 21:59 laboratory and microbiology Laboratory Tests 07/12/24 10:32 07/12/24 03:00 Test 07/12/24 03:00 Range/Units Serum Glucose 226 H 74-106 mg/dL Assessment/Plan Card Cleaner rounds Impression Acute hypoxemic respiratory failure Altered mental status Thrombocytopenia Liver cirrhosis Patient seen and examined in ICU Events On mechanical ventilation S/p intubation PEEP 5, FiO2 30% S/p blood product transfusion this morning abd tense will proceed to paracentesis Labs and imaging reviewed ABG reviewed Management Vent support Titrate to maintain sats 90% or above Sedation for vent synchrony Antibiotics Bronchodilators Monitor renal function Monitor electrolytes Supplement as needed Pressors as needed for hemodynamic support To maintain a mean arterial pressure of 65 mmHg Transfuse blood products prior to procedures Prognosis poor Further family discussion pending DVT prophylaxis Critical care time 35 minutes Dietary Evaluation Review Comments: 1. Suggest Nepro 1.8 @ 50 ml/hr + 1 pckt ProStat daily; begin @ 10 ml/hr, advance SLOWLY by 10 ml Q12 hrs to goal-rate of 50 ml/hr continuously 2. Provide minimal free water flushes of 30 ml Q6 hrs (120 ml total) for tube patency; adjust PRN/per MD discretion 3. Continue to monitor/replete lytes, especially K, Mag, Phos given high refeeding risk; add 100 mg thiamine daily x 7 days 4. Should lytes drop, maintain current rate of EN and replace to WNL prior to advancing rate of EN further TF Provision: TF at goal to provide 1200 ml total volume, 2160 kcal (+100 kcal via Prostat = 2260 kcal), 97 gm pro (+ 15 gm via Prostat = 112 gm), 15 gm fiber, 1272 mg K, 864 mg Phos, 872 ml H20 (meets 100% est. kcal needs, 100% est. pro needs) Expected Outcomes/Goals: Improved nutritional status, improved hemodynamic stability. Food and Nutrition Intake (Sev: <50% est energy req 5days Fluid Accumulation (Severe): Moderate Fluid Retention Protein Calorie Malnutrition: Severe Is there a minimum of two crit: Yes Plan discussed with: Other (rn) CC Plasma Assessment Blood Product Administration S: [id number] LUKE NOLASCO MD Jul 12, 2024 12:11
--- NOTE | 2024-07-12 12:35 | DVHNC2 ---
Procedure - us guided paracentesis indication ascites consent time out per protocol chloraprep x 3 lidocaine 1% 5 cc RLQ approach 7.8 l of fluid drained using seldinger technique sterile dressing applied no complications LUKE NOLASCO MD Jul 12, 2024 12:35
--- NOTE | 2024-07-12 12:40 | DVHPN2 ---
Progress Note Date Seen: Jul 12, 2024 Has the PT tested + for MRSA If YES, has PT been informed?: No Medical Necessity Reason Pt with a Central, PICC or Fol: Yes The following are medically ne: [place] Catheter Reason for durham catheter: Strict I&O Subjective Other Systems: Patient seen and examined by myself today in follow-up patient remained intubated on ventilator Patient examined hemodialysis, blood pressure stable Objective vital signs Vital Sign Date Time Temp Pulse Resp B/P (MAP) Pulse Ox O2 Delivery O2 Flow Rate FiO2 07/12/24 11:42 106/51 07/12/24 09:49 81 30 99 30 07/12/24 09:30 97.8 97.8 07/12/24 06:00 Mechanical Ventilator+ Total Intake and Output 07/11/24 07/11/24 07/12/24 15:00 23:00 07:00 Intake Total 837.443 ml 1104.625 ml 708.300 ml Output Total 350 ml 625 ml Balance 837.443 ml 754.625 ml 83.300 ml medications Current Medications Medications Dose Ordered Sig/Erik Route Start Time Stop Time Status Last Admin Dose Admin Ondansetron HCl 4 mg Q4HP PRN IV 07/01/24 02:45 Midodrine 10 mg TID@0600,1200,1800 PO 07/01/24 06:00 07/12/24 12:11 10 MG Thiamine HCl 100 mg DAILY PO 07/03/24 10:00 07/12/24 11:42 100 MG Haloperidol Lactate 5 mg Q8HP PRN IM 07/04/24 00:00 07/05/24 22:48 5 MG Rocuronium [place] 50 mg ONCE PRN IV 07/07/24 09:45 Norepinephrine Bitartrate 250 ml @ 3.75 mls/hr Q24H IV 07/07/24 09:30 07/11/24 16:47 3.75 MLS/HR Phenylephrine HCl 250 ml @ 30 mls/hr Q8H20M IV 07/07/24 09:30 Fentanyl Citrate 250 ml @ 2.5 mls/hr Q24H IV 07/07/24 09:30 07/12/24 09:32 30 MLS/HR Hydrocortisone Sodium Succinate 50 mg Q6HR IV 07/07/24 12:00 07/12/24 12:11 50 MG Meropenem 50 ml @ 17 mls/hr DAILY IV 07/08/24 10:00 07/12/24 10:00 17 MLS/HR Vasopressin 20 units/Sodium Chloride 100 ml @ 9 mls/hr Q11H7M IV 07/07/24 12:30 07/10/24 01:52 6 MLS/HR Pantoprazole Sodium 50 ml @ 10 mls/hr Q5H IV 07/07/24 17:15 07/12/24 06:18 10 MLS/HR Octreotide Acetate 500 mcg/ Sodium Chloride 100 ml @ 10 mls/hr Q10H IV 07/07/24 17:15 07/12/24 11:46 10 MLS/HR Lactulose 300 ml Q6HR [place] 07/08/24 00:00 07/12/24 12:12 300 ML Lorazepam 1 mg Q5MINP PRN IV 07/08/24 00:00 Vancomycin HCl 0 ml @ 0 mls/hr UD IV 07/08/24 09:30 Propofol 100 ml @ 2.775 mls/ hr Q24H IV 07/08/24 10:00 07/11/24 17:12 2.775 MLS/HR Potassium Chloride 100 ml @ 50 mls/hr Q2H IV 07/09/24 14:30 07/09/24 18:29 UNV Diagnostic Test (Pha) 1 strip Q6HR 07/10/24 00:00 07/12/24 12:12 1 STRIP Insulin Human Regular FOLLOW SLIDING SCALE Q6HR [place] 07/10/24 00:00 07/12/24 06:18 8 UNITS Dextrose 50 ml UD IV 07/10/24 00:00 Amino Acids 0 ml @ 0 mls/hr PER PHARMACY IV 07/10/24 10:00 Vancomycin HCl 0 ml @ 0 mls/hr UD IV 07/10/24 15:30 Cancel Bumetanide 25 mg/ Miscellaneous 100 ml @ 4 mls/hr Q24H IV 07/11/24 11:00 07/12/24 11:00 4 MLS/HR Metolazone 10 mg DAILY NG 07/12/24 10:00 07/12/24 11:42 10 MG Sodium Chloride 40 meq/Potassium Chloride 40 meq/ Magnesium Sulfate 6 meq/ Multivitamins 10 ml/Insulin Human Regular 12 units/ Amino Acids/ Dextrose 941.62 ml @ 40 mls/hr [id number] IV 07/11/24 22:00 07/12/24 21:59 07/11/24 22:44 40 MLS/HR Sodium Chloride 60 meq/Potassium Chloride 80 meq/ Magnesium Sulfate 8 meq/ Multivitamins 10 ml/Insulin Human Regular 18 units/ Amino Acids/ Dextrose 1,167.18 ml @ 48 mls/hr [id number] IV 07/12/24 22:00 07/13/24 21:59 Examination: LUNGS:Normal, CVS:Normal, MSK:Normal laboratory and microbiology Laboratory Tests 07/12/24 10:32 07/12/24 03:00 Test 07/12/24 03:00 Range/Units Serum Glucose 226 H 74-106 mg/dL Microbiology Date/Time Source Procedure Growth Status 07/07/24 09:58 Trachea Gram Stain - Final Complete 07/07/24 09:58 Respiratory Culture - Final Presumptive Julissa albicans Complete 07/01/24 17:21 Voided Urine Urine Culture - Final Enterococcus faecium Complete 07/01/24 08:53 Ascities Fluid Gram Stain - Final Complete 07/01/24 08:53 Ascities Fluid Body Fluid Culture - Final Complete 06/30/24 21:52 Blood Blood Culture - Final NO GROWTH AFTER 5 DAYS OF INCUBATION. Complete Problem List/Assessment/Plan Problem List/Assessment/Plan Acute kidney injury----ATN in the setting of hypotension/ blood loss, anuric requiring initiation of intermittent hemodialysis Acute respiratory failure, patient intubated on ventilator GI bleeding Septic shock Lactic acidosis Hypokalemia Hepatic encephalopathy Decompensated liver cirrhosis status post paracentesis Chronic alcoholism Hypoglycemia Recommendations Continue with UF to 3 L as tolerated, use no heparin Epogen [id number] subQ with hemodialysis Albumin 25% p.r.n. hemodialysis Increased urine output Hyperkalemia resolved [place] catheter Strict I&Os DC IV fluid IV antibiotics Low-dose dopamine KCL replacement Bumex 1 milligram/hour infusion Metolazone 10 mg NG tube q.day IV pressor for blood pressure support Maintain map greater than 65 Packed red blood cell transfusion p.r.n. We will continue to follow Plan discussed with: Other (Nurse) Dietary Evaluation Review Comments: 1. Suggest Nepro 1.8 @ 50 ml/hr + 1 pckt ProStat daily; begin @ 10 ml/hr, advance SLOWLY by 10 ml Q12 hrs to goal-rate of 50 ml/hr continuously 2. Provide minimal free water flushes of 30 ml Q6 hrs (120 ml total) for tube patency; adjust PRN/per MD discretion 3. Continue to monitor/replete lytes, especially K, Mag, Phos given high refeeding risk; add 100 mg thiamine daily x 7 days 4. Should lytes drop, maintain current rate of EN and replace to WNL prior to advancing rate of EN further TF Provision: TF at goal to provide 1200 ml total volume, 2160 kcal (+100 kcal via Prostat = 2260 kcal), 97 gm pro (+ 15 gm via Prostat = 112 gm), 15 gm fiber, 1272 mg K, 864 mg Phos, 872 ml H20 (meets 100% est. kcal needs, 100% est. pro needs) Expected Outcomes/Goals: Improved nutritional status, improved hemodynamic stability. Food and Nutrition Intake (Sev: <50% est energy req 5days Fluid Accumulation (Severe): Moderate Fluid Retention Protein Calorie Malnutrition: Severe Is there a minimum of two crit: Yes CC Plasma Assessment Blood Product Administration S: [id number] CHARLIE HALE MD Jul 12, 2024 12:40
[2024-07-12] MEDS ORDERED: ALBUMIN 25% 100 ML IV PRN (13:00)
[2024-07-12] MEDS: ALBUMIN 25% 100 ML IV SCH (14:00)
--- NOTE | 2024-07-12 14:06 | DVHPN2 ---
Assessment/Plan Assessment/Plan ICU progress note 53-year-old male with liver cirrhosis due to alcohol use and CKD presented with altered mental status, found to have urosepsis, SBP and possible GI bleeding. He developed sepsis, worsening renal function, and required dialysis for uremia and hyperkalemia. Rapid deterioration on 07/07 led to intubation, vasopressors, and sedation; prognosis discussed with family. Patient remains critically ill with GI bleeding, and multisystem involvement. He is still on pressors, minimal vent settings, and receiving supportive care including albumin, blood products, and antibiotics (meropenem and vancomycin). Seen patient during rounds, ~200cc NG output of bloody secretion, para today 8L drained, for HD, will giv ealbumin. 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 Azotemia Acute upper GI bleed, variceal bleed possible Severe anemia req transfusion Severe thrombocytopenia with bleeding req transfusion Alcoholic cirrhosis Enterococcus UTI SBP Severe malnutrition C/w mechanical ventilator c/w prop and fent for vent synchrony C/w vaso for renal protection per nephro C/w octreotide and protonix drip C/w vanc and [place] 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 per renal c/w stress dose steroid for 5 days vitamin K given start TPN GI recs appreciated CBC q12, daily coags no need to trend [place] resume lactulose enema plan for para tomorrow plan to pull more fluid Lines R IJ HD non tunneled L IJ TLC L radial a line durham ETT NGT Keep K 4, Mg 2 Diet NPO exc meds DVT ppx on hold bleeding GI PPX on protonix drip condition critical prognosis grim full code critical care time 60 minutes Plan discussed with: Other My Orders Orders - ASHLEY GALAN MD Procedure Category Date Status Time Communication Order ORDERS 4/12/25 Transmitted 16:18 Amino Acid PHA 07/12/24 In Process Infusion... W/Sodium 22:00 Comprehensive LAB 07/13/24 Verified Metabolic Panel 04:00 Magnesium LAB 07/13/24 Verified 04:00 Phosphorus LAB 07/13/24 Verified 04:00 Triglycerides LAB 07/13/24 Verified 04:00 Tpn Per Pharm[facility] 07/12/24 In Process 22:00 Complete Blood Count LAB 07/13/24 Verified 04:00 Vancomycin,Random LAB 07/13/24 Verified 04:00 Date of Service: Jul 12, 2024 Billing Provider: ASHLEY GALAN MD Common Visit Codes: [id number] CARE 30-74 MIN ASHLEY GALAN MD Jul 12, 2024 14:06
[2024-07-12 20:13] LABS: Urine Bacteria FEW /hpf (None Seen); Urine Blood 3+ /uL (Negative); Urine Clarity Turbid (Clear); Urine Color Dark-Yellow (Yellow); Urine Protein, UAD 3+ (Negative); Urine Specific Gravity 1.014 (1.001-1.035); Urine Squamous Epithelial Cell FEW /hpf (<5); Urine Urobilinogen Normal (Negative); Urine WBC 6 /HPF (0-3); Urine pH 8.5 (5.0-9.0)
--- NOTE | 2024-07-12 21:38 | DVHPN2 ---
Progress Note - Dictate Date Seen: Jul 12, 2024 Has the PT tested + for MRSA If YES, has PT been informed?: No Medical Necessity Reason Pt with a Central, PICC or Fol: Yes The following are medically ne: Durham Catheter Reason for durham catheter: Strict I&O Subjective Minimal coffee grounds via NGT Patient is still intubated and sedated Critically ill with multisystem involvement. He is still on pressors, minimal vent settings, Patient underwent bedside paracentesis by Dr. Villagran today and 7 L of fluid were removed Receiving supportive care including albumin, blood products, and antibiotics (meropenem and vancomycin). Hemoglobin was stable at 9.4, platelets improved to 41 K Bilirubin persistently elevated to 24 but transaminases trending down vital signs Vital Sign Date Time Temp Pulse Resp B/P (MAP) Pulse Ox O2 Delivery O2 Flow Rate FiO2 07/12/24 19:55 90 20 102/39 (60) 96 30 07/12/24 18:00 Mechanical Ventilator+ 07/12/24 16:00 97.4 97.4 Total Intake and Output 07/11/24 07/11/24 07/12/24 15:00 23:00 07:00 Intake Total 837.443 ml 1104.625 ml 824.800 ml Output Total 350 ml 625 ml Balance 837.443 ml 754.625 ml 199.800 ml medications Current Medications Medications Dose Ordered Sig/Erik Route Start Time Stop Time Status Last Admin Dose Admin Ondansetron HCl 4 mg Q4HP PRN IV 07/01/24 02:45 Midodrine 10 mg TID@0600,1200,1800 PO 07/01/24 06:00 07/12/24 18:41 10 MG Thiamine HCl 100 mg DAILY PO 07/03/24 10:00 07/12/24 11:42 100 MG Haloperidol Lactate 5 mg Q8HP PRN IM 07/04/24 00:00 07/05/24 22:48 5 MG Rocuronium [place] 50 mg ONCE PRN IV 07/07/24 09:45 Norepinephrine Bitartrate 250 ml @ 3.75 mls/hr Q24H IV 07/07/24 09:30 07/11/24 16:47 3.75 MLS/HR Phenylephrine HCl 250 ml @ 30 mls/hr Q8H20M IV 07/07/24 09:30 Fentanyl Citrate 250 ml @ 2.5 mls/hr Q24H IV 07/07/24 09:30 07/12/24 19:12 30 MLS/HR Hydrocortisone Sodium Succinate 50 mg Q6HR IV 07/07/24 12:00 07/12/24 18:41 50 MG Meropenem 50 ml @ 17 mls/hr DAILY IV 07/08/24 10:00 07/12/24 10:00 17 MLS/HR Vasopressin 20 units/Sodium Chloride 100 ml @ 9 mls/hr Q11H7M IV 07/07/24 12:30 07/10/24 01:52 6 MLS/HR Pantoprazole Sodium 50 ml @ 10 mls/hr Q5H IV 07/07/24 17:15 07/12/24 21:00 10 MLS/HR Octreotide Acetate 500 mcg/ Sodium Chloride 100 ml @ 10 mls/hr Q10H IV 07/07/24 17:15 07/12/24 11:46 10 MLS/HR Lactulose 300 ml Q6HR [place] 07/08/24 00:00 07/12/24 18:00 300 ML Lorazepam 1 mg Q5MINP PRN IV 07/08/24 00:00 Vancomycin HCl 0 ml @ 0 mls/hr UD IV 07/08/24 09:30 Propofol 100 ml @ 2.775 mls/ hr Q24H IV 07/08/24 10:00 07/12/24 16:13 5.55 MLS/HR Potassium Chloride 100 ml @ 50 mls/hr Q2H IV 07/09/24 14:30 07/09/24 18:29 UNV Diagnostic Test (Pha) 1 strip Q6HR 07/10/24 00:00 07/12/24 12:57 1 STRIP Insulin Human Regular FOLLOW SLIDING SCALE Q6HR SC 07/10/24 00:00 07/12/24 18:44 4 UNITS Dextrose 50 ml UD IV 07/10/24 00:00 Amino Acids 0 ml @ 0 mls/hr PER PHARMACY IV 07/10/24 10:00 Vancomycin HCl 0 ml @ 0 mls/hr UD IV 07/10/24 15:30 Cancel Bumetanide 25 mg/ Miscellaneous 100 ml @ 4 mls/hr Q24H IV 07/11/24 11:00 07/12/24 11:00 4 MLS/HR Metolazone 10 mg DAILY NG 07/12/24 10:00 07/12/24 11:42 10 MG Sodium Chloride 40 meq/Potassium Chloride 40 meq/ Magnesium Sulfate 6 meq/ Multivitamins 10 ml/Insulin Human Regular 12 units/ Amino Acids/ Dextrose 941.62 ml @ 40 mls/hr [id number] IV 07/11/24 22:00 07/12/24 21:59 07/11/24 22:44 40 MLS/HR Sodium Chloride 60 meq/Potassium Chloride 80 meq/ Magnesium Sulfate 8 meq/ Multivitamins 10 ml/Insulin Human Regular 18 units/ Amino Acids/ Dextrose 1,167.18 ml @ 48 mls/hr [id number] IV 07/12/24 22:00 07/13/24 21:59 objective General: intubated sedated; scleral icterus Chest: lung thompson clear to auscultation Heart: RRR, no murmur Abdomen: [id number]-me-xjhysrxv-distended, no tenderness to palpation, +BS Skin: +jaundice, multiple bruises laboratory and microbiology Laboratory Tests 07/12/24 10:32 07/12/24 03:00 Test 07/12/24 03:00 Range/Units Serum Glucose 226 H 74-106 mg/dL Problems(with codes): (1) Anemia, chronic disease (2) Icterus (3) Acute liver failure (4) GI bleed (5) Alcohol intoxication (6) Hepatorenal failure (7) Hepatic encephalopathy Prognosis PLAN Start trickle tube feeds Nepro 20 ml/hr advance to 45 ml/hr Document bowel activity regularly Monitor closely Possible EGD in 1-2 days if medically stabilized Continue IV Protonix drip and taper off the IV octreotide drip Dietary Evaluation Review Comments: 1. Suggest Nepro 1.8 @ 50 ml/hr + 1 pckt ProStat daily; begin @ 10 ml/hr, advance SLOWLY by 10 ml Q12 hrs to goal-rate of 50 ml/hr continuously 2. Provide minimal free water flushes of 30 ml Q6 hrs (120 ml total) for tube patency; adjust PRN/per MD discretion 3. Continue to monitor/replete lytes, especially K, Mag, Phos given high refeeding risk; add 100 mg thiamine daily x 7 days 4. Should lytes drop, maintain current rate of EN and replace to WNL prior to advancing rate of EN further TF Provision: TF at goal to provide 1200 ml total volume, 2160 kcal (+100 kcal via Prostat = 2260 kcal), 97 gm pro (+ 15 gm via Prostat = 112 gm), 15 gm fiber, 1272 mg K, 864 mg Phos, 872 ml H20 (meets 100% est. kcal needs, 100% est. pro needs) Expected Outcomes/Goals: Improved nutritional status, improved hemodynamic stability. Food and Nutrition Intake (Sev: <50% est energy req 5days Fluid Accumulation (Severe): Moderate Fluid Retention Protein Calorie Malnutrition: Severe Is there a minimum of two crit: Yes Plan discussed with: Other (ICU Nurse) CC Plasma Assessment Blood Product Administration S: [id number] SHANTAL BILLS MD Jul 12, 2024 21:37
[2024-07-12] MEDS: TPN PER PHARMACY IV NR (21:54)
[2024-07-12 22:22] LABS: Basophils # (auto) 0 10 ^3/uL (0-0.2); Basophils % (auto) 0.2 % (0.0-2.0); Eosinophils # (auto) 0 10 ^3/uL (0-0.8); Hemoglobin 8.6 g/dL (13.5-17.5); Mean Corpuscular Hemoglobin 30.5 pg (28.0-32.0); Red Blood Cells 2.83 10^6/uL (4.5-5.90)
[2024-07-12 22:23] LABS: Hematocrit 25.9 % (41.0-53.0); Lymphocytes # (auto) 0.7 10 ^3/uL (0.4-5.4); Lymphocytes % (auto) 5.3 % (10.0-50.0); Mean Corpuscular Hgb Conc. 33.3 g/dL (32.0-36.0); Mean Corpuscular Volume 91.7 fL (80.0-100.0); Neutrophils # (auto) 12.3 10 ^3/uL (1.6-8.6); Neutrophils % (auto) 87.5 % (37.0-80.0); Red Cell Distribution Width 16.2 % (11.8-14.3)
[2024-07-12 22:32] LABS: Platelet Count (auto) 17 10^3/uL (140-450)
[2024-07-12 22:56] LABS: Platelet Estimate Markedly Decreased
[2024-07-13] VITALS (114 sets, daily range): BP systolic 88–149; BP diastolic 42–107; PULSE 90–99; RESP 20–24; TEMP 97.6–98.2; O2SAT 93–100
[2024-07-13 04:11] LABS: Albumin 3.2 g/dL (3.2-4.8); Alkaline Phosphatase 85 U/L (46-116); Anion Gap 12 (5-15); Calcium 9.6 mg/dL (8.7-10.4); Carbon Dioxide 28 mmol/L (20-31); Chloride 99 mmol/L (98-107); Potassium 3.6 mmol/L (3.5-5.1); Sodium 139 mmol/L (136-145)
[2024-07-13 04:13] LABS: Bilirubin, Total 20.4 mg/dL (0.2-1.0); Glucose 166 mg/dL (74-106); Phosphorus 5.9 mg/dL (2.4-5.1)
[2024-07-13 04:23] LABS: BUN/Creatinine Ratio 20.8 (10.0-20.0)
[2024-07-13 04:41] LABS: Alanine Aminotransferase 42 U/L (7-40); Aspartate Aminotransferase 44 U/L (13-40); Blood Urea Nitrogen 84 mg/dL (9-23); Total Protein 5.5 g/dL (5.7-8.2)
--- NOTE | 2024-07-13 05:28 | DVH ---
EXAM: XR Chest, 1 View CLINICAL INDICATION: INTUBATED TECHNIQUE: Frontal view of the chest. COMPARISON: XY CHEST PORTABLE on DOS: 07/12/24, XY CHEST PORTABLE on DOS: 07/11/24, XY CHEST XRAY 1 V IEW on DOS: 07/10/24, XY CHEST XRAY 1 VIEW on DOS: 07/09/24, XY CHEST XRAY 1 VIEW on DOS: 07/08/24 FINDINGS: LUNGS AND PLEURAL SPACES: Left basilar atelectasis or pneumonia. Mild pulmonary congestion. No pn eumothorax. HEART: Unremarkable. No cardiomegaly. MEDIASTINUM: Unremarkable. Normal mediastinal contour. BONES/JOINTS: Unremarkable. No acute fracture. TUBES, LINES AND DEVICES: The endotracheal tube (ETT) is in satisfactory position. Left internal j ugular central venous catheter tip in the superior vena cava. Right internal jugular central venous catheter tip in the superior vena cava. OTHER FINDINGS: . . IMPRESSION: 1. Left basilar atelectasis or pneumonia. 2. Mild pulmonary congestion.
[2024-07-13 07:54] LABS: Base Excess 1.5 mmol/L (-2.0-3.0)
[2024-07-13 08:20] LABS: Eosinophils # (auto) 0 10 ^3/uL (0-0.8); Hemoglobin 8.2 g/dL (13.5-17.5); Lymphocytes # (auto) 0.8 10 ^3/uL (0.4-5.4); Monocytes # (auto) 0.9 10 ^3/uL (0-1.3); Platelet Count (auto) 33 10^3/uL (140-450); White Blood Cell 13.8 10^3/uL (4.4-10.8)
[2024-07-13 08:22] LABS: Basophils # (auto) 0.1 10 ^3/uL (0-0.2); Basophils % (auto) 0.9 % (0.0-2.0); Hematocrit 24.1 % (41.0-53.0); Lymphocytes % (auto) 5.6 % (10.0-50.0); Mean Corpuscular Hgb Conc. 34.2 g/dL (32.0-36.0); Mean Corpuscular Volume 90.6 fL (80.0-100.0); Monocytes % (auto) 6.2 % (0.0-12.0); Neutrophils % (auto) 87.3 % (37.0-80.0); Red Blood Cells 2.66 10^6/uL (4.5-5.90); Red Cell Distribution Width 16.1 % (11.8-14.3)
[2024-07-13 08:58] LABS: INR 1.71 (0.9-1.15); Partial Thromboplastin Time 44.7 SEC (24.5-34.5); Prothrombin Time 17.2 sec (9.3-11.8)
--- NOTE | 2024-07-13 09:55 | DVHPNRES ---
Progress Note Date Seen: Jul 13, 2024 Resident Creating Document: AUDRA CRANDALL RESIDENT Has the PT tested + for MRSA If YES, has PT been informed?: No Medical Necessity Reason Pt with a Central, PICC or Fol: Yes The following are medically ne: Durham Catheter Reason for durham catheter: Strict I&O Subjective Review of Systems A 53-year-old male with past medical history of liver cirrhosis (due to alcohol use disorder)and CKD brought to the hospital due to altered mental status. Family were called, but the didnt answer, all the info was taken to the medical records Per EMS reports patient was taken from home and per family member he has been altered since 1 week which has progressively worsened. He was admitted on 10/31/2020 and DVT H due to GI bleeding, EGD was performed, showed gastritis with no active bleeding. PMHx: Liver cirrhosis due to alcohol use disorder, CKD Social history: Has history of alcohol use disorder 07/01/2024: paracentesis done 7LT, multiple wbc in the ascitic fluid, labile BPs, midodrine and octeotride started, zosyn and linezolid due to sepsis and possible SBP, start levophed if MAP below 60, fluids were given, protonix BID 07/02/2024: renal function is declining, hb is stable, FOB neg, protonix drip started, bumex drip started 07/06/2024: urine culture positive for enterococcus, patient is on zosyn and linezolid, hyperkalemia 5.8 07/07/2024: At around 9 a.m., patient was found gasping for air with MAP of 53. Rapid response was called. Mental status deteriorated (GCS drop), requiring intubation. Central line and Jordan catheter were placed. Started on vasopressors: Levophed up to 30 mcg/min and Vasopressin 0.04 U/min. Emergent dialysis was initiated due to uremia and hyperkalemia (K 6.3, later improved to 4.1). ABG showed compensated respiratory status. Patient was found to be hypoglycemic (glucose 16) during event. He is now sedated on fentanyl drip. Labs showed Hgb 6.6likely due to GI bleed; received blood products, Vitamin K, and PPI drip. Prognosis remains poor, and case was re-discussed with family; full code until now 07/08/2024: yesterday HD filtration only, platelets trending down, Dc linezolid, start vancomycin, start low dose propofol, levophed off, still on vasopressin, , GI ok with NG tube, minimal vent settings (fio2 40%) 07/09/2024: 1 apheresis and 1 rbc given, still bloody secretions from mouth, albumin and bumex given, clinimix started by GI, min vent settings, still on vasopressin, octreotide and protonix drip, HD today 07/13/2024: Pt is on TPN, so far in this admission: 6 URBC, 4 FFP, 5 Units of platelets and 1 unit of cryoprecipitates given, dialysis yesterday 2LT, new paracentesis on 07/12/2024 7.8 Lt, jn is growing in the sputum (colonization), hb 8.2 plat [id number] ABG: mild respiratory acidosis, levophed 4 mcg, protonix and octreotide drip, vancomycin and meropenem, no fevers, minimal vent settings Objective vital signs Vital Sign Date Time Temp Pulse Resp B/P (MAP) Pulse Ox O2 Delivery O2 Flow Rate FiO2 07/13/24 09:18 94 20 135/53 (80) 96 30 07/13/24 08:00 97.8 97.8 07/13/24 06:00 Mechanical Ventilator+ Total Intake and Output 07/12/24 07/12/24 07/13/24 15:00 23:00 07:00 Intake Total 1238.825 ml 1176.40 ml 2325.40 ml Output Total 9875 ml 700 ml Balance 1238.825 ml -8698.60 ml 1625.40 ml medications Current Medications Medications Dose Ordered Sig/Erik Route Start Time Stop Time Status Last Admin Dose Admin Ondansetron HCl 4 mg Q4HP PRN IV 07/01/24 02:45 Midodrine 10 mg TID@0600,1200,1800 PO 07/01/24 06:00 07/13/24 06:00 10 MG Thiamine HCl 100 mg DAILY PO 07/03/24 10:00 07/12/24 11:42 100 MG Haloperidol Lactate 5 mg Q8HP PRN IM 07/04/24 00:00 07/05/24 22:48 5 MG Rocuronium [place] 50 mg ONCE PRN IV 07/07/24 09:45 Norepinephrine Bitartrate 250 ml @ 3.75 mls/hr Q24H IV 07/07/24 09:30 07/13/24 00:48 7.5 MLS/HR Phenylephrine HCl 250 ml @ 30 mls/hr Q8H20M IV 07/07/24 09:30 Fentanyl Citrate 250 ml @ 2.5 mls/hr Q24H IV 07/07/24 09:30 07/13/24 01:53 30 MLS/HR Hydrocortisone Sodium Succinate 50 mg Q6HR IV 07/07/24 12:00 07/13/24 07:34 50 MG Meropenem 50 ml @ 17 mls/hr DAILY IV 07/08/24 10:00 07/12/24 10:00 17 MLS/HR Vasopressin 20 units/Sodium Chloride 100 ml @ 9 mls/hr Q11H7M IV 07/07/24 12:30 07/10/24 01:52 6 MLS/HR Pantoprazole Sodium 50 ml @ 10 mls/hr Q5H IV 07/07/24 17:15 07/13/24 07:55 10 MLS/HR Octreotide Acetate 500 mcg/ Sodium Chloride 100 ml @ 10 mls/hr Q10H IV 07/07/24 17:15 07/13/24 08:07 10 MLS/HR Lactulose 300 ml Q6HR [place] 07/08/24 00:00 07/13/24 06:10 300 ML Lorazepam 1 mg Q5MINP PRN IV 07/08/24 00:00 Vancomycin HCl 0 ml @ 0 mls/hr UD IV 07/08/24 09:30 Propofol 100 ml @ 2.775 mls/ hr Q24H IV 07/08/24 10:00 07/12/24 16:13 5.55 MLS/HR Potassium Chloride 100 ml @ 50 mls/hr Q2H IV 07/09/24 14:30 07/09/24 18:29 UNV Diagnostic Test (Pha) 1 strip Q6HR 07/10/24 00:00 07/13/24 06:06 1 STRIP Insulin Human Regular FOLLOW SLIDING SCALE Q6HR SC 07/10/24 00:00 07/13/24 06:08 2 UNITS Dextrose 50 ml UD IV 07/10/24 00:00 Amino Acids 0 ml @ 0 mls/hr PER PHARMACY IV 07/10/24 10:00 Vancomycin HCl 0 ml @ 0 mls/hr UD IV 07/10/24 15:30 Cancel Bumetanide 25 mg/ Miscellaneous 100 ml @ 4 mls/hr Q24H IV 07/11/24 11:00 07/12/24 11:00 4 MLS/HR Metolazone 10 mg DAILY NG 07/12/24 10:00 07/12/24 11:42 10 MG Sodium Chloride 60 meq/Potassium Chloride 80 meq/ Magnesium Sulfate 8 meq/ Multivitamins 10 ml/Insulin Human Regular 18 units/ Amino Acids/ Dextrose 1,167.18 ml @ 48 mls/hr [id number] IV 07/12/24 22:00 07/13/24 21:59 07/12/24 21:54 48 MLS/HR Examination General Appearance: intubated HEENT: pupils were dilatetd 6mm am, anisocoria, bleeding through the mouth Respiratory: left IJ cath right HD cath Clear to auscultation, Normal air movement Cardiovascular: Regular rate, Normal S1, Normal S2, No murmurs, no chest wall tenderness Abdominal: ascities Extremities: No clubbing, No cyanosis, No edema, Normal pulses, Skin: Generalized yellow discoloration of skin, petechial/purpuric lesion and upper limb laboratory and microbiology Laboratory Tests 07/13/24 08:14 07/13/24 03:19 Test 07/13/24 03:19 Range/Units Serum Glucose 166 H 74-106 mg/dL Microbiology Date/Time Source Procedure Growth Status 07/07/24 09:58 Trachea Gram Stain - Final Complete 07/07/24 09:58 Respiratory Culture - Final Presumptive Jn albicans Complete 07/01/24 17:21 Voided Urine Urine Culture - Final Enterococcus faecium Complete 07/01/24 08:53 Ascities Fluid Gram Stain - Final Complete 07/01/24 08:53 Ascities Fluid Body Fluid Culture - Final Complete 06/30/24 21:52 Blood Blood Culture - Final NO GROWTH AFTER 5 DAYS OF INCUBATION. Complete Problem List/Assessment/Plan Problem List/Assessment/Plan Neurology #Acute metabolic encephalopathy due to hepatic and uremic encephalopathy #GCS deterioration requiring intubation Intubated. Currently sedated with fentanyl and propofol drip Neurology consulted Cardiology #Shock, likely multifactorial septic, hypovolemic Levophed 4 mcg/min Central line and A line placed. Trend lactate and MAP Pulmonary #Acute hypoxic respiratory failure requiring mechanical ventilation #Vent dependent, intubated Vent settings: PEEP 5, TV 450, RR 20, FiO2 30%.Continue ventilator support, monitor ABGs: mild respiratory acidosis: permissive hypercapnia Hematology #Severe anemia, likely due to GI bleeding #Thrombocytopenia due to liver failure 6 URBC, 4 FFP, 5 Units of platelets and 1 unit of cryoprecipitates hb 8.2 plat [id number] Continue PPI drip. GI consulted, concern for possible esophageal varices: possible EGD . Infectious Disease #Septic shock, likely secondary to UTI and spontaneous bacterial peritonitis #Possible aspiration pneumonia: gram+/gram - Urine culture positive for enterococcus, blood culture no growth x5 days. Sputum culture:positive for jn (colonization): no need of antifungal for now On Meropenem+ vancomycin Continue dual coverage. #SBP Paracentesis: 7.8 L removed yesterday high WBC in ascitic fluid (fat admission). Octreotide and antibiotics ongoing. GI/Hepatology #Liver cirrhosis secondary to alcohol use #Massive ascites #Possible esophageal varices #Upper GI bleed, unspecified location GI consulted. Octreotide drip, PPI drip, PRBCs transfused. Vitamin K administered. Continue octreotide, PPI. Trend Hgb. Monitor for rebleeding. NG tube lactulose rectal TPN Renal #CLIFFORD on CKD, likely multifactorial: uremia, hypotension, sepsis #Hyperkalemia #Uremic encephalopathy #Emergency dialysis [facility] initiated HD yesterday Albumin q8h Endocrinology #Hypoglycemia TPN Now stable. Monitor glucose q6h. Nutrition #Severe malnutrition TPN Code Status: full code Poor prognosis discussed with sister (POA). Lines/Support Intubated Central line A-line Jordan catheter Prophylaxis and Orders DVT: SCD GI: PPI drip (Protonix) Bowel: Lactulose Case discussed with Dr Interiano Plan discussed with: Patient, Other (rn) Dietary Evaluation Review Comments: 1. Suggest Nepro 1.8 @ 50 ml/hr + 1 pckt ProStat daily; begin @ 10 ml/hr, advance SLOWLY by 10 ml Q12 hrs to goal-rate of 50 ml/hr continuously 2. Provide minimal free water flushes of 30 ml Q6 hrs (120 ml total) for tube patency; adjust PRN/per MD discretion 3. Continue to monitor/replete lytes, especially K, Mag, Phos given high refeeding risk; add 100 mg thiamine daily x 7 days 4. Should lytes drop, maintain current rate of EN and replace to WNL prior to advancing rate of EN further TF Provision: TF at goal to provide 1200 ml total volume, 2160 kcal (+100 kcal via Prostat = 2260 kcal), 97 gm pro (+ 15 gm via Prostat = 112 gm), 15 gm fiber, 1272 mg K, 864 mg Phos, 872 ml H20 (meets 100% est. kcal needs, 100% est. pro needs) Expected Outcomes/Goals: Improved nutritional status, improved hemodynamic stability. Food and Nutrition Intake (Sev: <50% est energy req 5days Fluid Accumulation (Severe): Moderate Fluid Retention Protein Calorie Malnutrition: Severe Is there a minimum of two crit: Yes CC Plasma Assessment Blood Product Administration S: [id number] Date of Service: Jul 13, 2024 Billing Provider: ASHLEY INTERIANO MD Common Visit Codes: [id number] CARE 30-74 MIN AUDRA CRANDALL RESIDENT Jul 13, 2024 09:55 ASHLEY INTERIANO MD Jul 14, 2024 21:38
[2024-07-13 10:59] LABS: Triglycerides 93 mg/dL (< 150)
--- NOTE | 2024-07-13 11:17 | DVHPN2 ---
Progress Note - Dictate Date Seen: Jul 13, 2024 Has the PT tested + for MRSA If YES, has PT been informed?: No Medical Necessity Reason Pt with a Central, PICC or Fol: Yes The following are medically ne: Durham Catheter Reason for durham catheter: Strict I&O Subjective Mr. Juarez is a 53 years old right-handed gentleman with a history of liver failure, liver cirrhosis, alcoholism, prostatic cancer, anxiety, hepatorenal syndrome, he came to the hospital on 06/30/24 because of for a few days. In the hospital, the patient was found to have severe jaundice, liver failure, coagulopathy, urinary tract infection, sepsis, kidney failure. On 07/08/2023, the patient was had code assistance because of hypotension and he was nonresponsive, the patient was resuscitated, intubated and transferred to ICU I saw him on 11/03/2020 for seizure I have seen and examined the patient, he is sedated, responsive to light touch. Pupil are round, unequal, slightly reactive to lights, right: 5-6 mm, Lt: 6mm Dried blood in the mouth, signs of subcutaneous tissue bleeding Hearing culture, 07/01/2024: Enterococcus faecium Blood culture, 06/30/2024: No growth UDS, 07/01/2024: Negative Plasma alcohol, 06/30/2024: 3.6 Urinalysis, 07/01/2024: WBC: 3958, urine leukocyte esterase: 3+ ABG, 07/07/2024: Combined metabolic and respiratory acidosis, respiratory acidosis WBC/HB/PLT/MCV, 07/07/2024: 19.5/8.2/80/100.9, 07/09/2024: 18. 1/6.8/24/97.7, 07/10/2024: 10.2/7.3/19/90.9 PT/INR/PTT, 07/07/2024: 27.2/2.85/56.7, 07/10/2024: 20.6/2.09/54.2 K 07/07/2024: 6.3 BUN/CR, 07/07/2024: 88/7.62 TBI/AST/ALT/AP, 07/07/2024: 23.5/263/60/73 Lactic acid, 07/07/2024: 6.9, 4.9 Ammonia, 11/02/2020: 98, 11/03/2020: 109, 95, 11/07/2020: 95, 06/30/2024: 54, 07/03/2024: 11, 07/07/2024: 33 Vitamin B12, 07/01/24: 2308 Folic acid, 07/01/24: 11.87 EEG, : Rpar-ly-[id number] abnormal EEG Chest x-ray, 07/07/2024: Right basilar opacity. Lines and tubes in appropriate position. CT head, 08/18/2020: No acute intracranial abnormality identified. Mild cerebral volume loss. Cerebral atherosclerosis CT head, 06/30/2024: No acute intracranial abnormality CTA, 11/05/2020: No intracranial hemorrhage vital signs Vital Sign Date Time Temp Pulse Resp B/P (MAP) Pulse Ox O2 Delivery O2 Flow Rate FiO2 07/13/24 09:18 94 20 135/53 (80) 96 30 07/13/24 08:00 97.8 97.8 07/13/24 06:00 Mechanical Ventilator+ Total Intake and Output 07/12/24 07/12/24 07/13/24 15:00 23:00 07:00 Intake Total 1238.825 ml 1176.40 ml 2325.40 ml Output Total 9875 ml 700 ml Balance 1238.825 ml -8698.60 ml 1625.40 ml medications Current Medications Medications Dose Ordered Sig/Erki Route Start Time Stop Time Status Last Admin Dose Admin Ondansetron HCl 4 mg Q4HP PRN IV 07/01/24 02:45 Midodrine 10 mg TID@0600,1200,1800 PO 07/01/24 06:00 07/13/24 06:00 10 MG Thiamine HCl 100 mg DAILY PO 07/03/24 10:00 07/12/24 11:42 100 MG Haloperidol Lactate 5 mg Q8HP PRN IM 07/04/24 00:00 07/05/24 22:48 5 MG Norepinephrine Bitartrate 250 ml @ 3.75 mls/hr Q24H IV 07/07/24 09:30 07/13/24 00:48 7.5 MLS/HR Phenylephrine HCl 250 ml @ 30 mls/hr Q8H20M IV 07/07/24 09:30 Fentanyl Citrate 250 ml @ 2.5 mls/hr Q24H IV 07/07/24 09:30 07/13/24 01:53 30 MLS/HR Hydrocortisone Sodium Succinate 50 mg Q6HR IV 07/07/24 12:00 07/13/24 07:34 50 MG Meropenem 50 ml @ 17 mls/hr DAILY IV 07/08/24 10:00 07/12/24 10:00 17 MLS/HR Vasopressin 20 units/Sodium Chloride 100 ml @ 9 mls/hr Q11H7M IV 07/07/24 12:30 07/10/24 01:52 6 MLS/HR Pantoprazole Sodium 50 ml @ 10 mls/hr Q5H IV 07/07/24 17:15 07/13/24 07:55 10 MLS/HR Octreotide Acetate 500 mcg/ Sodium Chloride 100 ml @ 10 mls/hr Q10H IV 07/07/24 17:15 07/13/24 08:07 10 MLS/HR Lactulose 300 ml Q6HR ID 07/08/24 00:00 07/13/24 06:10 300 ML Lorazepam 1 mg Q5MINP PRN IV 07/08/24 00:00 Vancomycin HCl 0 ml @ 0 mls/hr UD IV 07/08/24 09:30 Propofol 100 ml @ 2.775 mls/ hr Q24H IV 07/08/24 10:00 07/12/24 16:13 5.55 MLS/HR Potassium Chloride 100 ml @ 50 mls/hr Q2H IV 07/09/24 14:30 07/09/24 18:29 UNV Diagnostic Test (Pha) 1 strip Q6HR 07/10/24 00:00 07/13/24 06:06 1 STRIP Insulin Human Regular FOLLOW SLIDING SCALE Q6HR SC 07/10/24 00:00 07/13/24 06:08 2 UNITS Dextrose 50 ml UD IV 07/10/24 00:00 Amino Acids 0 ml @ 0 mls/hr PER PHARMACY IV 07/10/24 10:00 Vancomycin HCl 0 ml @ 0 mls/hr UD IV 07/10/24 15:30 Cancel Bumetanide 25 mg/ Miscellaneous 100 ml @ 4 mls/hr Q24H IV 07/11/24 11:00 07/12/24 11:00 4 MLS/HR Metolazone 10 mg DAILY NG 07/12/24 10:00 07/12/24 11:42 10 MG Sodium Chloride 60 meq/Potassium Chloride 80 meq/ Magnesium Sulfate 8 meq/ Multivitamins 10 ml/Insulin Human Regular 18 units/ Amino Acids/ Dextrose 1,167.18 ml @ 48 mls/hr [id number] IV 07/12/24 22:00 07/13/24 21:59 07/12/24 21:54 48 MLS/HR Albumin Human 100 ml @ 100 mls/hr Q8H IV 07/13/24 10:30 07/14/24 03:29 objective The patient is well-nourished and well-developed with no distress. The patient is intubated. He has jaundice Bilateral hammertoes and high-arched foot MENTAL STATUS: Subjective CRANIAL NERVES: Pupils are unequal, round and reactive.There are corneal reflexes and doll's eyes phenomenon. No signs of facial weakness. There are gagging or coughing reflexes. There was no abnormal skin secretion, abnormal vascular dilatation SENSATION: No responses to pain stimuli. MOTOR: Normal tone in the upper and lower extremity. Normal muscle bulk. No fasciculations. He moves the arms and legs a little bit REFLEXES: Deep tendon reflexes are symmetrical. No pathological reflexes. CEREBELLAR/COORDINATION: Deferred GAIT/STATION: deferred laboratory and microbiology Laboratory Tests 07/13/24 08:14 07/13/24 03:19 Test 07/13/24 03:19 Range/Units Serum Glucose 166 H 74-106 mg/dL Problem List Altered mental status Metabolic cephalopathy Hepatic encephalopathy Hypoxic encephalopathy UTI, sepsis, septic shock Liver failure History of Alcoholism Jaundice Respiratory failure Coagulopathy/oral bleeding Thrombocytopenia Anemia GI on case Anisocoria with left-sided slightly bigger, new since 07/13/2024 according to the nurse, uncertain clinical significance Assessment/Plan Monitoring Supportive treatment ICU care Follow-up labs Stabilize vitals/pressor drip Respiratory support/vent management Thiamine supplementation Lactulose Nephrology on case Pulmonology on case GI on case This medical document was created using an electronic medical record system with Divided dictation system. Although this document has been carefully reviewed, there may still be some phonetic and typographical errors. These areas are purely typographical due to imperfections of the software programs, and do not reflect any compromise in the patient's medical care. Prognosis guarded Dietary Evaluation Review Comments: 1. Suggest Nepro 1.8 @ 50 ml/hr + 1 pckt ProStat daily; begin @ 10 ml/hr, advance SLOWLY by 10 ml Q12 hrs to goal-rate of 50 ml/hr continuously 2. Provide minimal free water flushes of 30 ml Q6 hrs (120 ml total) for tube patency; adjust PRN/per MD discretion 3. Continue to monitor/replete lytes, especially K, Mag, Phos given high refeeding risk; add 100 mg thiamine daily x 7 days 4. Should lytes drop, maintain current rate of EN and replace to WNL prior to advancing rate of EN further TF Provision: TF at goal to provide 1200 ml total volume, 2160 kcal (+100 kcal via Prostat = 2260 kcal), 97 gm pro (+ 15 gm via Prostat = 112 gm), 15 gm fiber, 1272 mg K, 864 mg Phos, 872 ml H20 (meets 100% est. kcal needs, 100% est. pro needs) Expected Outcomes/Goals: Improved nutritional status, improved hemodynamic stability. Food and Nutrition Intake (Sev: <50% est energy req 5days Fluid Accumulation (Severe): Moderate Fluid Retention Protein Calorie Malnutrition: Severe Is there a minimum of two crit: Yes Plan discussed with: Other Critical Care Time(min): 30 CC Plasma Assessment Blood Product Administration S: [id number] ERIC ARIAS MD Jul 13, 2024 11:17
[2024-07-13] MEDS: ALBUMIN 25% 100 ML IV SCH (11:26)
--- NOTE | 2024-07-13 11:51 | DVHPN2 ---
Progress Note Date Seen: Jul 13, 2024 Resident Creating Document: ADITHYA PEREZ RESIDENT Has the PT tested + for MRSA If YES, has PT been informed?: No Medical Necessity Reason Pt with a Central, PICC or Fol: Yes The following are medically ne: [place] Catheter Reason for durham catheter: Strict I&O Subjective Review of Systems 53-year-old male with a history of alcohol-induced liver cirrhosis,and end-stage renal disease , who presented to the ED with altered mental status. Workup revealed UTI positive for Enterococcus faecium, spontaneous bacterial peritonitis with PMNs >250/mm (fluid WBC 2108, PMNs 98%) and hepatic encephalopathy. He developed acute kidney injury CLIFFORD on CKD, likely secondary to ATN from hypotension, sepsis, and GI blood loss, necessitating initiation of intermittent hemodialysis. Course complicated by severe thrombocytopenia (platelets kareem 17K, now 33K), coagulopathy (INR 1.72, fibrinogen 131), hyperphosphatemia, hypoglycemia, and lactic acidosis from septic shock. He is currently intubated for acute hypoxic respiratory failure, sedated, and on norepinephrine and low-dose dopamine for pressor support. Receiving IV vancomycin, hydrocortisone, dextrose/insulin, diuretics (bumetanide drip + metolazone), and PRN FFP and pRBCs as needed. Patient urine output - 5L, on Durham. He underwent paracentesis with diagnostic findings consistent with SBP. Ammonia and LFTs are improving. Hepatitis A antibody positive, likely due to prior vaccination or past exposure (not acute). Glucose normalized. Phosphorus still elevated. Hemodynamics are stable under current support. Current Urine output 150ml , bumex drip will be stop, patient will start on bumex 3mg IV push once a day and will monitor urine output. hemodyalisis scheduled for tomorrow patient would benefit from Continuous renal replacement therapy if condition persist. EPOGEN 10,000 units three times a week. monitor platelets Objective vital signs Vital Sign Date Time Temp Pulse Resp B/P (MAP) Pulse Ox O2 Delivery O2 Flow Rate FiO2 07/13/24 11:27 121/60 07/13/24 11:16 94 20 95 30 07/13/24 08:00 97.8 97.8 07/13/24 06:00 Mechanical Ventilator+ Total Intake and Output 07/12/24 07/12/24 07/13/24 15:00 23:00 07:00 Intake Total 1238.825 ml 1176.40 ml 2325.40 ml Output Total 9875 ml 700 ml Balance 1238.825 ml -8698.60 ml 1625.40 ml medications Current Medications Medications Dose Ordered Sig/Erik Route Start Time Stop Time Status Last Admin Dose Admin Ondansetron HCl 4 mg Q4HP PRN IV 07/01/24 02:45 Midodrine 10 mg TID@0600,1200,1800 PO 07/01/24 06:00 07/13/24 11:37 10 MG Thiamine HCl 100 mg DAILY PO 07/03/24 10:00 07/13/24 11:25 100 MG Haloperidol Lactate 5 mg Q8HP PRN IM 07/04/24 00:00 07/05/24 22:48 5 MG Norepinephrine Bitartrate 250 ml @ 3.75 mls/hr Q24H IV 07/07/24 09:30 07/13/24 00:48 7.5 MLS/HR Phenylephrine HCl 250 ml @ 30 mls/hr Q8H20M IV 07/07/24 09:30 Fentanyl Citrate 250 ml @ 2.5 mls/hr Q24H IV 07/07/24 09:30 07/13/24 01:53 30 MLS/HR Hydrocortisone Sodium Succinate 50 mg Q6HR IV 07/07/24 12:00 07/13/24 11:37 50 MG Meropenem 50 ml @ 17 mls/hr DAILY IV 07/08/24 10:00 07/13/24 10:00 17 MLS/HR Vasopressin 20 units/Sodium Chloride 100 ml @ 9 mls/hr Q11H7M IV 07/07/24 12:30 07/10/24 01:52 6 MLS/HR Pantoprazole Sodium 50 ml @ 10 mls/hr Q5H IV 07/07/24 17:15 07/13/24 07:55 10 MLS/HR Octreotide Acetate 500 mcg/ Sodium Chloride 100 ml @ 10 mls/hr Q10H IV 07/07/24 17:15 07/13/24 08:07 10 MLS/HR Lactulose 300 ml Q6HR IL 07/08/24 00:00 07/13/24 11:38 300 ML Lorazepam 1 mg Q5MINP PRN IV 07/08/24 00:00 Vancomycin HCl 0 ml @ 0 mls/hr UD IV 07/08/24 09:30 Propofol 100 ml @ 2.775 mls/ hr Q24H IV 07/08/24 10:00 07/12/24 16:13 5.55 MLS/HR Potassium Chloride 100 ml @ 50 mls/hr Q2H IV 07/09/24 14:30 07/09/24 18:29 UNV Diagnostic Test (Pha) 1 strip Q6HR 07/10/24 00:00 07/13/24 11:27 1 STRIP Insulin Human Regular FOLLOW SLIDING SCALE Q6HR SC 07/10/24 00:00 07/13/24 11:31 8 UNITS Dextrose 50 ml UD IV 07/10/24 00:00 Amino Acids 0 ml @ 0 mls/hr PER PHARMACY IV 07/10/24 10:00 Vancomycin HCl 0 ml @ 0 mls/hr UD IV 07/10/24 15:30 Cancel Bumetanide 25 mg/ Miscellaneous 100 ml @ 4 mls/hr Q24H IV 07/11/24 11:00 07/13/24 11:27 4 MLS/HR Metolazone 10 mg DAILY NG 07/12/24 10:00 07/13/24 11:25 10 MG Sodium Chloride 60 meq/Potassium Chloride 80 meq/ Magnesium Sulfate 8 meq/ Multivitamins 10 ml/Insulin Human Regular 18 units/ Amino Acids/ Dextrose 1,167.18 ml @ 48 mls/hr [id number] IV 07/12/24 22:00 07/13/24 21:59 07/12/24 21:54 48 MLS/HR Albumin Human 100 ml @ 100 mls/hr Q8H IV 07/13/24 10:30 07/14/24 03:29 07/13/24 11:26 100 MLS/HR Examination General: Critically ill-appearing male, intubated and sedated, on mechanical ventilation. Icteric. Monitored in ICU setting with multiple IV infusions running. Appears volume-overloaded with generalized edema HEENT: Scleral icterus present,mucous membranes dry Neck: Central line in place Lungs: Intubated; breath sounds diminished bilaterally with fine crackles at bases Cardiovascular:Regular rate and rhythm, no murmurs, rubs, or gallops, Peripheral pulses weak Abdomen: Distended, tense, positive fluid wave (ascites), paracentesis site clean, no bleeding Genitourinary:Durham catheter in place with minimal dark yellow urine output (~150 mL/24 hr),No gross hematuria Extremities:Severe anasarca with 2+ to 3+ pitting edema to thighs,no evidence of active bleeding, petechiae on lower limbs Skin:icteric, cool, mottled in lower extremities, ecchymosis Neurological: Sedated, nonverbal, pupils equal, round, and reactive to light,No spontaneous movement or response to voice,intact corneal and cough reflexes laboratory and microbiology Laboratory Tests 07/13/24 08:14 07/13/24 03:19 Test 07/13/24 03:19 Range/Units Serum Glucose 166 H 74-106 mg/dL Microbiology Date/Time Source Procedure Growth Status 07/07/24 09:58 Trachea Gram Stain - Final Complete 07/07/24 09:58 Respiratory Culture - Final Presumptive Julissa albicans Complete 07/01/24 17:21 Voided Urine Urine Culture - Final Enterococcus faecium Complete 07/01/24 08:53 Ascities Fluid Gram Stain - Final Complete 07/01/24 08:53 Ascities Fluid Body Fluid Culture - Final Complete 06/30/24 21:52 Blood Blood Culture - Final NO GROWTH AFTER 5 DAYS OF INCUBATION. Complete Problem List/Assessment/Plan Problem List/Assessment/Plan # Severe scute kidney injury on CKD likely ATN due to septic shock #GI bleed #CKD stage [place] #Anasarca -On hemodialysis continue without heparin due to thrombocytopenia. -Avoid nephrotoxins. -Current urine output 150ml , bumex drip will be stop, patient will start on bumex 3mg IV push once a day and will monitor urine output. -hemodialysis scheduled for tomorrow -patient would benefit from continuous renal replacement therapy if condition persist. -EPOGEN 10,000 units three times a week. -monitor platelets # Septic shock due to UTI secondary to enterococcus faecium: - Continue meropenem and vancomycin IV with renal dosing. - Monitor cultures, lactic acid, WBC trend (currently improving). - On norepinephrine + low-dose dopamine for renal perfusion continue to titrate. - Monitor lactate, perfusion markers, and MAP. #Spontaneous bacterial peritonitis secondary to liver failure due to cirrhosis - Continue antibiotics. - albumin administration q8h #Hepatic encephalopathy and cirrhosis (alcohol-related): - ammonia WNL. - Supportive care, monitor mental status and LFTs. #GI bleed likely upper GI source in cirrhotic patient; currently no active GI bleeding signs. - Continue PPI - GI on board #Coagulopathy and thrombocytopenia likely multifactorial due to liver cirrhosis and DIC - FFP given yesterday - pRBCs and platelets PRN (goal Hgb >7, platelets >20-30K for dialysis). - Repeat CBC, coagulation panel, and monitor for bleeding. #Electrolyte imbalances - Hyperphosphatemia - Hyperkalemia resolved after dialysis - monitor #Nutrition Currently NPO/intubated on TPN Receiving amino acids IV. #Hepatitis A antibody positive: Likely prior exposure or vaccination. No acute infection. case discussed with code status: full code Plan discussed with: Patient Dietary Evaluation Review Comments: 1. Suggest Nepro 1.8 @ 50 ml/hr + 1 pckt ProStat daily; begin @ 10 ml/hr, advance SLOWLY by 10 ml Q12 hrs to goal-rate of 50 ml/hr continuously 2. Provide minimal free water flushes of 30 ml Q6 hrs (120 ml total) for tube patency; adjust PRN/per MD discretion 3. Continue to monitor/replete lytes, especially K, Mag, Phos given high refeeding risk; add 100 mg thiamine daily x 7 days 4. Should lytes drop, maintain current rate of EN and replace to WNL prior to advancing rate of EN further TF Provision: TF at goal to provide 1200 ml total volume, 2160 kcal (+100 kcal via Prostat = 2260 kcal), 97 gm pro (+ 15 gm via Prostat = 112 gm), 15 gm fiber, 1272 mg K, 864 mg Phos, 872 ml H20 (meets 100% est. kcal needs, 100% est. pro needs) Expected Outcomes/Goals: Improved nutritional status, improved hemodynamic stability. Food and Nutrition Intake (Sev: <50% est energy req 5days Fluid Accumulation (Severe): Moderate Fluid Retention Protein Calorie Malnutrition: Severe Is there a minimum of two crit: Yes CC Plasma Assessment Blood Product Administration S: [id number] ADITHYA PEREZ RESIDENT Jul 13, 2024 11:51
[2024-07-13] MEDS: BUMETANIDE 2.5mg/10ml (0.25 mg/ml) INJ IV ONE (14:00)
[2024-07-13] MEDS: VANCOMYCIN 500mg/100mL 100 ML IV ONE (17:01)
--- NOTE | 2024-07-13 21:49 | DVHPN2 ---
Progress Note - Dictate Date Seen: Jul 13, 2024 Has the PT tested + for MRSA If YES, has PT been informed?: No Medical Necessity Reason Pt with a Central, PICC or Fol: Yes The following are medically ne: Durham Catheter Reason for durham catheter: Strict I&O Subjective Patient seen and examined at bedside. Sedated, intubated on mechanical ventilator. Overnight events reviewed. vital signs Vital Sign Date Time Temp Pulse Resp B/P (MAP) Pulse Ox O2 Delivery O2 Flow Rate FiO2 07/13/24 20:15 94 20 133/54 (80) 96 30 07/13/24 20:00 Mechanical Ventilator+ 07/13/24 16:00 97.6 97.6 Total Intake and Output 07/12/24 07/12/24 07/13/24 15:00 23:00 07:00 Intake Total 1238.825 ml 1176.40 ml 2325.40 ml Output Total 9875 ml 700 ml Balance 1238.825 ml -8698.60 ml 1625.40 ml medications Current Medications Medications Dose Ordered Sig/Erik Route Start Time Stop Time Status Last Admin Dose Admin Ondansetron HCl 4 mg Q4HP PRN IV 07/01/24 02:45 Midodrine 10 mg TID@0600,1200,1800 PO 07/01/24 06:00 07/13/24 17:16 10 MG Thiamine HCl 100 mg DAILY PO 07/03/24 10:00 07/13/24 11:25 100 MG Haloperidol Lactate 5 mg Q8HP PRN IM 07/04/24 00:00 07/05/24 22:48 5 MG Norepinephrine Bitartrate 250 ml @ 3.75 mls/hr Q24H IV 07/07/24 09:30 07/13/24 00:48 7.5 MLS/HR Phenylephrine HCl 250 ml @ 30 mls/hr Q8H20M IV 07/07/24 09:30 Fentanyl Citrate 250 ml @ 2.5 mls/hr Q24H IV 07/07/24 09:30 07/13/24 19:54 30 MLS/HR Hydrocortisone Sodium Succinate 50 mg Q6HR IV 07/07/24 12:00 07/13/24 17:17 50 MG Meropenem 50 ml @ 17 mls/hr DAILY IV 07/08/24 10:00 07/13/24 10:00 17 MLS/HR Vasopressin 20 units/Sodium Chloride 100 ml @ 9 mls/hr Q11H7M IV 07/07/24 12:30 07/10/24 01:52 6 MLS/HR Pantoprazole Sodium 50 ml @ 10 mls/hr Q5H IV 07/07/24 17:15 07/13/24 17:16 10 MLS/HR Octreotide Acetate 500 mcg/ Sodium Chloride 100 ml @ 10 mls/hr Q10H IV 07/07/24 17:15 07/13/24 17:40 10 MLS/HR Lactulose 300 ml Q6HR AL 07/08/24 00:00 07/13/24 17:17 300 ML Lorazepam 1 mg Q5MINP PRN IV 07/08/24 00:00 Vancomycin HCl 0 ml @ 0 mls/hr UD IV 07/08/24 09:30 Propofol 100 ml @ 2.775 mls/ hr Q24H IV 07/08/24 10:00 07/13/24 17:16 5.55 MLS/HR Potassium Chloride 100 ml @ 50 mls/hr Q2H IV 07/09/24 14:30 07/09/24 18:29 UNV Diagnostic Test (Pha) 1 strip Q6HR 07/10/24 00:00 07/13/24 17:16 1 STRIP Insulin Human Regular FOLLOW SLIDING SCALE Q6HR SC 07/10/24 00:00 07/13/24 17:31 8 UNITS Dextrose 50 ml UD IV 07/10/24 00:00 Amino Acids 0 ml @ 0 mls/hr PER PHARMACY IV 07/10/24 10:00 Vancomycin HCl 0 ml @ 0 mls/hr UD IV 07/10/24 15:30 Cancel Metolazone 10 mg DAILY NG 07/12/24 10:00 07/13/24 11:25 10 MG Sodium Chloride 60 meq/Potassium Chloride 80 meq/ Magnesium Sulfate 8 meq/ Multivitamins 10 ml/Insulin Human Regular 18 units/ Amino Acids/ Dextrose 1,167.18 ml @ 48 mls/hr [id number] IV 07/12/24 22:00 07/13/24 21:59 07/12/24 21:54 48 MLS/HR Albumin Human 100 ml @ 100 mls/hr Q8H IV 07/13/24 10:30 07/14/24 03:29 07/13/24 19:55 100 MLS/HR Sodium Chloride 60 meq/Potassium Chloride 60 meq/ Magnesium Sulfate 8 meq/ Multivitamins 10 ml/Insulin Human Regular 22 units/ Amino Acids/ Dextrose 1,357.22 ml @ 56 mls/hr [id number] IV 07/13/24 22:00 07/14/24 21:59 Bumetanide 2.5 mg DAILY IV 07/14/24 10:00 objective Gen.: Patient lying in bed in medical ICU. Sedated, intubated on mechanical ventilator. Head: Normocephalic, atraumatic. Eyes: PERRLA. Ears: Normal external anatomy. Throat: Endotracheal tube and orogastric tube in place. Neck: Supple, trachea midline. Chest: Transmitted breath sounds bilaterally. Decreased air entry bilaterally. No wheezing. Bibasilar crackles. Cardiovascular: Positive S1, positive S2. Regular rate and rhythm. Abdomen: Positive bowel sounds in all 4 quadrants. Soft, nontender, nondistended. : Durham in place. Normal external genitalia. Rectal: Deferred. Skin: Warm, dry. Intact. Extremities: 2+ radial pulses bilaterally. No lower extremity edema. Neuro: Sedated laboratory and microbiology Laboratory Tests 07/13/24 08:14 07/13/24 03:19 Test 07/13/24 03:19 Range/Units Serum Glucose 166 H 74-106 mg/dL Assessment/Plan Impression: Acute hypercarbic respiratory failure On mechanical ventilator Acute metabolic encephalopathy Shock Liver cirrhosis Hx of ETOH abuse Thrombocytopenia Events: Remains on vent support On AC mode; RR 20, VT 450, PEEP 5, FiO2 30% Sedated on Propofol/Fentanyl ABG reviewed, notable for acidemia S/p paracentesis yesterday Pressors for hemodynamic support Levophed 2 mcg/min Titrate to keep mean arterial pressure greater than 65 mmHg. Continue antibiotics Continue IV steroids Continue Octreotide Continue Protonix Monitor hemoglobin S/p 1 unit FFP and 1 unit cryo Monitor platelets d/t thrombocytopenia - 17 K GI recs appreciated Possible EGD Diurese w/ Bumex drip HD per Nephrology - HD yesterday, removed 2 liters Monitor renal function Monitor electrolytes. Supplement as necessary. Monitor ins and outs. CXR image and report reviewed. Labs and imaging reviewed. Rest of plan as noted below. Plan: s/p intubation on mechanical ventilator. On AC mode; RR 20, VT 450, PEEP 5, FiO2 30% Titrate FIO2 to keep O2 saturation above 90%. VAP bundle. Daily ABG and CXR while intubated Sedated for vent synchrony Continue antibiotics. Octreotide drip Protonix drip GI recommendations appreciated Pressors as necessary for hemodynamic support Titrate to keep mean arterial pressure greater than 65 mmHg. Accu-Cheks, ISS PRN. Monitor renal function Monitor electrolytes. Supplement as necessary. Monitor ins and outs. Maintain euvolemia. GI prophylaxis. DVT prophylaxis. Prognosis: Poor given patient's multiple co-morbidities. Condition: Critical Rest of plan per hospitalist and other consultants. A total of 35 minutes of critical care time was spent reviewing the patient record, examining the patient, making a diagnostic and therapeutic plan, discussing this plan with the medical personnel, following up on diagnostic studies and following the patient for clinical stability excluding any and all procedures. At least 50% of this time was spent in direct, [id number] contact. Thank you Dr. Ovalle for allowing me to participate in this patient's care. Further recommendations will depend on the patient's clinical course. Please do not hesitate to contact me if you have any questions or concerns. This medical document was created using an electronic medical record system with [employer] dictation system. Although these documentations are being carefully reviewed, there may still be some phonetic and typographical changes. The errors are purely typographical, due to imperfection on the software program, and do not reflect any compromise in the patient's medical care. Dietary Evaluation Review Comments: 1. Suggest Nepro 1.8 @ 50 ml/hr + 1 pckt ProStat daily; begin @ 10 ml/hr, advance SLOWLY by 10 ml Q12 hrs to goal-rate of 50 ml/hr continuously 2. Provide minimal free water flushes of 30 ml Q6 hrs (120 ml total) for tube patency; adjust PRN/per MD discretion 3. Continue to monitor/replete lytes, especially K, Mag, Phos given high refeeding risk; add 100 mg thiamine daily x 7 days 4. Should lytes drop, maintain current rate of EN and replace to WNL prior to advancing rate of EN further TF Provision: TF at goal to provide 1200 ml total volume, 2160 kcal (+100 kcal via Prostat = 2260 kcal), 97 gm pro (+ 15 gm via Prostat = 112 gm), 15 gm fiber, 1272 mg K, 864 mg Phos, 872 ml H20 (meets 100% est. kcal needs, 100% est. pro needs) Expected Outcomes/Goals: Improved nutritional status, improved hemodynamic stability. Food and Nutrition Intake (Sev: <50% est energy req 5days Fluid Accumulation (Severe): Moderate Fluid Retention Protein Calorie Malnutrition: Severe Is there a minimum of two crit: Yes Plan discussed with: Other (CLIVE Moffett) Critical Care Time(min): 35 CC Plasma Assessment Blood Product Administration S: [id number] JOAQUÍN VILLAFANA MD Jul 13, 2024 21:49
--- NOTE | 2024-07-13 22:20 | DVHPN2 ---
Progress Note - Dictate Date Seen: Jul 13, 2024 Has the PT tested + for MRSA If YES, has PT been informed?: No Medical Necessity Reason Pt with a Central, PICC or Fol: Yes The following are medically ne: Durham Catheter Reason for durham catheter: Strict I&O Subjective Minimal coffee grounds via NGT Patient is still intubated and sedated Critically ill with multisystem involvement. He is still on pressors, minimal vent settings, Patient underwent bedside paracentesis by Dr. Villagran today and 7 L of fluid were removed Receiving supportive care including albumin, blood products, and antibiotics (meropenem and vancomycin). Hemoglobin was stable at 8.6, platelets improved to 33 K Liver enzymes including bilirubin trending down vital signs Vital Sign Date Time Temp Pulse Resp B/P (MAP) Pulse Ox O2 Delivery O2 Flow Rate FiO2 07/13/24 22:10 93 20 135/54 (81) 95 30 07/13/24 22:00 Mechanical Ventilator+ 07/13/24 16:00 97.6 97.6 Total Intake and Output 07/12/24 07/12/24 07/13/24 14:59 22:59 06:59 Intake Total 1258.275 ml 1162.15 ml 2325.40 ml Output Total 9875 ml 700 ml Balance 1258.275 ml -8712.85 ml 1625.40 ml medications Current Medications Medications Dose Ordered Sig/Erik Route Start Time Stop Time Status Last Admin Dose Admin Ondansetron HCl 4 mg Q4HP PRN IV 07/01/24 02:45 Midodrine 10 mg TID@0600,1200,1800 PO 07/01/24 06:00 07/13/24 17:16 10 MG Thiamine HCl 100 mg DAILY PO 07/03/24 10:00 07/13/24 11:25 100 MG Haloperidol Lactate 5 mg Q8HP PRN IM 07/04/24 00:00 07/05/24 22:48 5 MG Norepinephrine Bitartrate 250 ml @ 3.75 mls/hr Q24H IV 07/07/24 09:30 07/13/24 00:48 7.5 MLS/HR Phenylephrine HCl 250 ml @ 30 mls/hr Q8H20M IV 07/07/24 09:30 Fentanyl Citrate 250 ml @ 2.5 mls/hr Q24H IV 07/07/24 09:30 07/13/24 19:54 30 MLS/HR Hydrocortisone Sodium Succinate 50 mg Q6HR IV 07/07/24 12:00 07/13/24 17:17 50 MG Meropenem 50 ml @ 17 mls/hr DAILY IV 07/08/24 10:00 07/13/24 10:00 17 MLS/HR Vasopressin 20 units/Sodium Chloride 100 ml @ 9 mls/hr Q11H7M IV 07/07/24 12:30 07/10/24 01:52 6 MLS/HR Pantoprazole Sodium 50 ml @ 10 mls/hr Q5H IV 07/07/24 17:15 07/13/24 17:16 10 MLS/HR Octreotide Acetate 500 mcg/ Sodium Chloride 100 ml @ 10 mls/hr Q10H IV 07/07/24 17:15 07/13/24 17:40 10 MLS/HR Lactulose 300 ml Q6HR MS 07/08/24 00:00 07/13/24 17:17 300 ML Lorazepam 1 mg Q5MINP PRN IV 07/08/24 00:00 Vancomycin HCl 0 ml @ 0 mls/hr UD IV 07/08/24 09:30 Propofol 100 ml @ 2.775 mls/ hr Q24H IV 07/08/24 10:00 07/13/24 17:16 5.55 MLS/HR Potassium Chloride 100 ml @ 50 mls/hr Q2H IV 07/09/24 14:30 07/09/24 18:29 UNV Diagnostic Test (Pha) 1 strip Q6HR 07/10/24 00:00 07/13/24 17:16 1 STRIP Insulin Human Regular FOLLOW SLIDING SCALE Q6HR SC 07/10/24 00:00 07/13/24 17:31 8 UNITS Dextrose 50 ml UD IV 07/10/24 00:00 Amino Acids 0 ml @ 0 mls/hr PER PHARMACY IV 07/10/24 10:00 Vancomycin HCl 0 ml @ 0 mls/hr UD IV 07/10/24 15:30 Cancel Metolazone 10 mg DAILY NG 07/12/24 10:00 07/13/24 11:25 10 MG Albumin Human 100 ml @ 100 mls/hr Q8H IV 07/13/24 10:30 07/14/24 03:29 07/13/24 19:55 100 MLS/HR Sodium Chloride 60 meq/Potassium Chloride 60 meq/ Magnesium Sulfate 8 meq/ Multivitamins 10 ml/Insulin Human Regular 22 units/ Amino Acids/ Dextrose 1,357.22 ml @ 56 mls/hr [id number] IV 07/13/24 22:00 07/14/24 21:59 Bumetanide 2.5 mg DAILY IV 07/14/24 10:00 objective General: intubated sedated; scleral icterus Chest: lung thompson clear to auscultation Heart: RRR, no murmur Abdomen: Ahtd-ng-xtnrbpon-distended, no tenderness to palpation, +BS Skin: +jaundice, multiple bruises laboratory and microbiology Laboratory Tests 07/13/24 08:14 07/13/24 03:19 Test 07/13/24 03:19 Range/Units Serum Glucose 166 H 74-106 mg/dL Problems(with codes): (1) Icterus (2) Hypotension (3) Acute liver failure (4) GI bleed (5) Severe malnutrition (6) Anemia, chronic disease (7) Hepatorenal failure (8) Hepatic encephalopathy Prognosis Plan Patient continues to be critically ill There was a plan for dialysis tomorrow continue IV Protonix 40 mg q.12 hours I will tentatively plan an endoscopy for him tomorrow afternoon if the patient is more stable and blood pressure is not labile Dietary Evaluation Review Comments: 1. Suggest Nepro 1.8 @ 50 ml/hr + 1 pckt ProStat daily; begin @ 10 ml/hr, advance SLOWLY by 10 ml Q12 hrs to goal-rate of 50 ml/hr continuously 2. Provide minimal free water flushes of 30 ml Q6 hrs (120 ml total) for tube patency; adjust PRN/per MD discretion 3. Continue to monitor/replete lytes, especially K, Mag, Phos given high refeeding risk; add 100 mg thiamine daily x 7 days 4. Should lytes drop, maintain current rate of EN and replace to WNL prior to advancing rate of EN further TF Provision: TF at goal to provide 1200 ml total volume, 2160 kcal (+100 kcal via Prostat = 2260 kcal), 97 gm pro (+ 15 gm via Prostat = 112 gm), 15 gm fiber, 1272 mg K, 864 mg Phos, 872 ml H20 (meets 100% est. kcal needs, 100% est. pro needs) Expected Outcomes/Goals: Improved nutritional status, improved hemodynamic stability. Food and Nutrition Intake (Sev: <50% est energy req 5days Fluid Accumulation (Severe): Moderate Fluid Retention Protein Calorie Malnutrition: Severe Is there a minimum of two crit: Yes Plan discussed with: Other (None) CC Plasma Assessment Blood Product Administration S: [id number] SHANTAL BILLS MD Jul 13, 2024 22:20
[2024-07-13] MEDS: TPN PER PHARMACY IV NR (23:45)
[2024-07-14] VITALS (112 sets, daily range): BP systolic 86–193; BP diastolic 26–75; PULSE 76–109; RESP 19–25; TEMP 97.6–98.2; O2SAT 95–100
--- NOTE | 2024-07-14 04:47 | DVH ---
CHEST RADIOGRAPH Indication: INTUBATED Technique: Single frontal view of the chest was obtained Comparison: XY CHEST PORTABLE on DOS: 07/13/24 FINDINGS: Lines and Tubes: Right and left central venous catheters are unchanged in position. The enteric tube terminates in the stomach. The endotracheal tube terminates 5.8 cm above sim. Lungs: Hazy bilateral opacities similar to prior study. Mild pulmonary congestion. Pleura: No effusion. No pneumothorax. Cardiomediastinal contours: Stable cardiomegaly. Bones: No acute osseous abnormality. IMPRESSION: 1. No significant interval change.
[2024-07-14 04:52] LABS: Basophils # (auto) 0 10 ^3/uL (0-0.2); Basophils % (auto) 0.2 % (0.0-2.0); Eosinophils # (auto) 0 10 ^3/uL (0-0.8); Hematocrit 24.4 % (41.0-53.0); Hemoglobin 8.2 g/dL (13.5-17.5); Lymphocytes # (auto) 0.7 10 ^3/uL (0.4-5.4); Lymphocytes % (auto) 6.7 % (10.0-50.0); Mean Corpuscular Hemoglobin 31.1 pg (28.0-32.0); Mean Corpuscular Hgb Conc. 33.4 g/dL (32.0-36.0); Mean Corpuscular Volume 93.1 fL (80.0-100.0); Monocytes # (auto) 1.2 10 ^3/uL (0-1.3); Neutrophils # (auto) 8.7 10 ^3/uL (1.6-8.6); Neutrophils % (auto) 82.1 % (37.0-80.0); Platelet Count (auto) 22 10^3/uL (140-450); Red Blood Cells 2.62 10^6/uL (4.5-5.90); Red Cell Distribution Width 16.3 % (11.8-14.3); White Blood Cell 10.6 10^3/uL (4.4-10.8)
[2024-07-14 04:59] LABS: Partial Thromboplastin Time 54.7 SEC (24.5-34.5); Prothrombin Time 19.8 sec (9.3-11.8)
[2024-07-14 05:14] LABS: Alanine Aminotransferase 34 U/L (7-40); Albumin 3.4 g/dL (3.2-4.8); Alkaline Phosphatase 73 U/L (46-116); Anion Gap 13 (5-15); Aspartate Aminotransferase 38 U/L (13-40); Calcium 9.7 mg/dL (8.7-10.4); Carbon Dioxide 25 mmol/L (20-31); Chloride 100 mmol/L (98-107); Magnesium 2.1 mg/dL (1.6-2.6); Potassium 3.9 mmol/L (3.5-5.1); Sodium 138 mmol/L (136-145)
[2024-07-14 05:49] LABS: BUN/Creatinine Ratio 21.6 (10.0-20.0)
[2024-07-14 06:09] LABS: Bilirubin, Total 18.4 mg/dL (0.2-1.0); Glucose 276 mg/dL (74-106); Phosphorus 6.3 mg/dL (2.4-5.1); Total Protein 5.3 g/dL (5.7-8.2)
[2024-07-14 06:11] LABS: Blood Urea Nitrogen 99 mg/dL (9-23)
[2024-07-14] MEDS: SODIUM CHL 0.9% 1000 ML BAG XX ONE (07:00)
--- NOTE | 2024-07-14 10:34 | DVHPN2 ---
Progress Note Date Seen: Jul 14, 2024 Resident Creating Document: ADITHYA PEREZ RESIDENT Has the PT tested + for MRSA If YES, has PT been informed?: No Medical Necessity Reason Pt with a Central, PICC or Fol: Yes The following are medically ne: [place] Catheter Reason for durham catheter: Strict I&O, Total Immobilization Subjective Review of Systems Patient examined at bedside, he remains intubated and on mechanical ventilation, hemodialysis scheduled for today. Blood pressure is on the lower side with a map of 60 mmHg. The patient continued to appear fluid overloaded. Abdomen remains markedly distended. Epogen [id number] units will be administered today as planned. Platelets have decreased to 22 K, we will continue closely monitor labs and hemodynamic status. Objective vital signs Vital Sign Date Time Temp Pulse Resp B/P (MAP) Pulse Ox O2 Delivery O2 Flow Rate FiO2 07/14/24 10:10 107 20 100/58 (72) 98 30 07/14/24 06:00 Mechanical Ventilator+ 07/14/24 04:00 98.1 98.1 Total Intake and Output 07/13/24 07/13/24 07/14/24 14:59 22:59 06:59 Intake Total 3691.65 ml 1187.45 ml 1099.70 ml Output Total 850 ml 2100 ml Balance 3691.65 ml 337.45 ml -1000.30 ml medications Current Medications Medications Dose Ordered Sig/Erik Route Start Time Stop Time Status Last Admin Dose Admin Ondansetron HCl 4 mg Q4HP PRN IV 07/01/24 02:45 Midodrine 10 mg TID@0600,1200,1800 PO 07/01/24 06:00 07/14/24 06:33 10 MG Thiamine HCl 100 mg DAILY PO 07/03/24 10:00 07/13/24 11:25 100 MG Haloperidol Lactate 5 mg Q8HP PRN IM 07/04/24 00:00 07/05/24 22:48 5 MG Norepinephrine Bitartrate 250 ml @ 3.75 mls/hr Q24H IV 07/07/24 09:30 07/13/24 00:48 7.5 MLS/HR Phenylephrine HCl 250 ml @ 30 mls/hr Q8H20M IV 07/07/24 09:30 Fentanyl Citrate 250 ml @ 2.5 mls/hr Q24H IV 07/07/24 09:30 07/14/24 03:15 32.5 MLS/HR Hydrocortisone Sodium Succinate 50 mg Q6HR IV 07/07/24 12:00 07/14/24 06:33 50 MG Meropenem 50 ml @ 17 mls/hr DAILY IV 07/08/24 10:00 07/13/24 10:00 17 MLS/HR Vasopressin 20 units/Sodium Chloride 100 ml @ 9 mls/hr Q11H7M IV 07/07/24 12:30 07/10/24 01:52 6 MLS/HR Pantoprazole Sodium 50 ml @ 10 mls/hr Q5H IV 07/07/24 17:15 07/14/24 06:59 10 MLS/HR Octreotide Acetate 500 mcg/ Sodium Chloride 100 ml @ 10 mls/hr Q10H IV 07/07/24 17:15 07/13/24 17:40 10 MLS/HR Lactulose 300 ml Q6HR DC 07/08/24 00:00 07/14/24 06:00 300 ML Lorazepam 1 mg Q5MINP PRN IV 07/08/24 00:00 Vancomycin HCl 0 ml @ 0 mls/hr UD IV 07/08/24 09:30 Propofol 100 ml @ 2.775 mls/ hr Q24H IV 07/08/24 10:00 07/13/24 17:16 5.55 MLS/HR Potassium Chloride 100 ml @ 50 mls/hr Q2H IV 07/09/24 14:30 07/09/24 18:29 UNV Diagnostic Test (Pha) 1 strip Q6HR 07/10/24 00:00 07/14/24 06:00 1 STRIP Insulin Human Regular FOLLOW SLIDING SCALE Q6HR SC 07/10/24 00:00 07/14/24 06:35 12 UNITS Dextrose 50 ml UD IV 07/10/24 00:00 Amino Acids 0 ml @ 0 mls/hr PER PHARMACY IV 07/10/24 10:00 Vancomycin HCl 0 ml @ 0 mls/hr UD IV 07/10/24 15:30 Cancel Metolazone 10 mg DAILY NG 07/12/24 10:00 07/13/24 11:25 10 MG Sodium Chloride 60 meq/Potassium Chloride 60 meq/ Magnesium Sulfate 8 meq/ Multivitamins 10 ml/Insulin Human Regular 22 units/ Amino Acids/ Dextrose 1,357.22 ml @ 56 mls/hr [id number] IV 07/13/24 22:00 07/14/24 21:59 07/13/24 23:45 56 MLS/HR Bumetanide 2.5 mg DAILY IV 07/14/24 10:00 Albumin Human 100 ml @ 100 mls/hr Q1HR IV 07/14/24 09:00 07/14/24 10:59 Examination General: Critically ill-appearing male, intubated and sedated, on mechanical ventilation. Icteric. Monitored in ICU setting with multiple IV infusions running. Appears volume-overloaded with generalized edema HEENT: Scleral icterus present,mucous membranes dry Neck: Central line in place Lungs: Intubated; breath sounds diminished bilaterally with fine crackles at bases Cardiovascular:Regular rate and rhythm, no murmurs, rubs, or gallops, Peripheral pulses weak Abdomen: Distended, tense, positive fluid wave (ascites), paracentesis site clean, no bleeding Genitourinary:Durham catheter in place Extremities:anasarca with 2+ pitting edema to thighs,no evidence of active bleeding, petechiae on lower limbs Skin:icteric, cool, mottled in lower extremities, ecchymosis Neurological: Sedated, nonverbal, pupils equal, round, and reactive to light,No spontaneous movement or response to voice,intact corneal and cough reflexes laboratory and microbiology Laboratory Tests 07/14/24 03:28 Test 07/14/24 03:28 Range/Units Serum Glucose 276 #H 74-106 mg/dL Microbiology Date/Time Source Procedure Growth Status 07/07/24 09:58 Trachea Gram Stain - Final Complete 07/07/24 09:58 Respiratory Culture - Final Presumptive Julissa albicans Complete 07/01/24 17:21 Voided Urine Urine Culture - Final Enterococcus faecium Complete 07/01/24 08:53 Ascities Fluid Gram Stain - Final Complete 07/01/24 08:53 Ascities Fluid Body Fluid Culture - Final Complete 06/30/24 21:52 Blood Blood Culture - Final NO GROWTH AFTER 5 DAYS OF INCUBATION. Complete Problem List/Assessment/Plan Problem List/Assessment/Plan Assessment: # Severe acute kidney injury on CKD likely ATN due to septic shock #GI bleed #CKD stage [place] #Anasarca # Septic shock due to UTI secondary to enterococcus faecium: #Spontaneous bacterial peritonitis secondary to liver failure due to cirrhosis #Possible Hepatic encephalopathy and cirrhosis (alcohol-related): #GI bleed likely upper GI source in cirrhotic patien #Electrolyte imbalances Plan: - On hemodialysis, today - volume status: patient is clinically fluid overloaded, recommend fluid input restriction as much as possible - strict I&Os - Avoid nephrotoxins. - Continue bumex 3mg IV push once a day and will monitor urine output. - EPOGEN 10,000 units three times a week. - monitor platelets - Continue meropenem and vancomycin IV with renal dosing. - GI on board case discussed with code status: full code Plan discussed with: Other My Orders My Orders Orders - ADITHYA PEREZ Procedure Category Date Status Time Bumetanide Injection PHA 07/14/24 In Process (Bumex Injection) 10:00 Epoetin Rolo-Epbx PHA 07/14/24 In Process (Retacrit) 21:00 Dietary Evaluation Review Comments: 1. Suggest Nepro 1.8 @ 50 ml/hr + 1 pckt ProStat daily; begin @ 10 ml/hr, advance SLOWLY by 10 ml Q12 hrs to goal-rate of 50 ml/hr continuously 2. Provide minimal free water flushes of 30 ml Q6 hrs (120 ml total) for tube patency; adjust PRN/per MD discretion 3. Continue to monitor/replete lytes, especially K, Mag, Phos given high refeeding risk; add 100 mg thiamine daily x 7 days 4. Should lytes drop, maintain current rate of EN and replace to WNL prior to advancing rate of EN further TF Provision: TF at goal to provide 1200 ml total volume, 2160 kcal (+100 kcal via Prostat = 2260 kcal), 97 gm pro (+ 15 gm via Prostat = 112 gm), 15 gm fiber, 1272 mg K, 864 mg Phos, 872 ml H20 (meets 100% est. kcal needs, 100% est. pro needs) Expected Outcomes/Goals: Improved nutritional status, improved hemodynamic stability. Food and Nutrition Intake (Sev: <50% est energy req 5days Fluid Accumulation (Severe): Moderate Fluid Retention Protein Calorie Malnutrition: Severe Is there a minimum of two crit: Yes CC Plasma Assessment Blood Product Administration S: [id number] ADITHYA PEREZ RESIDENT Jul 14, 2024 10:34
--- NOTE | 2024-07-14 10:41 | DVHPNRES ---
Progress Note Date Seen: Jul 14, 2024 Resident Creating Document: AUDRA CRANDALL RESIDENT Has the PT tested + for MRSA If YES, has PT been informed?: No Medical Necessity Reason Pt with a Central, PICC or Fol: Yes The following are medically ne: Durham Catheter Reason for durham catheter: Strict I&O Subjective Review of Systems A 53-year-old male with past medical history of liver cirrhosis (due to alcohol use disorder)and CKD brought to the hospital due to altered mental status. Family were called, but the didnt answer, all the info was taken to the medical records Per EMS reports patient was taken from home and per family member he has been altered since 1 week which has progressively worsened. He was admitted on 10/31/2020 and DVT H due to GI bleeding, EGD was performed, showed gastritis with no active bleeding. PMHx: Liver cirrhosis due to alcohol use disorder, CKD Social history: Has history of alcohol use disorder 07/01/2024: paracentesis done 7LT, multiple wbc in the ascitic fluid, labile BPs, midodrine and octeotride started, zosyn and linezolid due to sepsis and possible SBP, start levophed if MAP below 60, fluids were given, protonix BID 07/02/2024: renal function is declining, hb is stable, FOB neg, protonix drip started, bumex drip started 07/06/2024: urine culture positive for enterococcus, patient is on zosyn and linezolid, hyperkalemia 5.8 07/07/2024: At around 9 a.m., patient was found gasping for air with MAP of 53. Rapid response was called. Mental status deteriorated (GCS drop), requiring intubation. Central line and Jordan catheter were placed. Started on vasopressors: Levophed up to 30 mcg/min and Vasopressin 0.04 U/min. Emergent dialysis was initiated due to uremia and hyperkalemia (K 6.3, later improved to 4.1). ABG showed compensated respiratory status. Patient was found to be hypoglycemic (glucose 16) during event. He is now sedated on fentanyl drip. Labs showed Hgb 6.6likely due to GI bleed; received blood products, Vitamin K, and PPI drip. Prognosis remains poor, and case was re-discussed with family; full code until now 07/08/2024: yesterday HD filtration only, platelets trending down, Dc linezolid, start vancomycin, start low dose propofol, levophed off, still on vasopressin, , GI ok with NG tube, minimal vent settings (fio2 40%) 07/09/2024: 1 apheresis and 1 rbc given, still bloody secretions from mouth, albumin and bumex given, clinimix started by GI, min vent settings, still on vasopressin, octreotide and protonix drip, HD today 07/13/2024: Pt is on TPN, so far in this admission: 6 URBC, 4 FFP, 5 Units of platelets and 1 unit of cryoprecipitates given, dialysis yesterday 2LT, new paracentesis on 07/12/2024 7.8 Lt, jn is growing in the sputum (colonization), hb 8.2 plat [id number] ABG: mild respiratory acidosis, levophed 4 mcg, protonix and octreotide drip, vancomycin and meropenem, no fevers, minimal vent settings 07/14/2024: hb 8,2 plat 22, ABG respiratory acidosis pH 7.27 pCO2 56.2 bicarb 25, tidal volume was increased 500, possible scope today, frozen plasma and platelets ordered, right now patient is getting dialysis, Levophed during the night 2 mcg, bleeding through the G-tube 350 cc, Durham 200cc urine, no fevers, head ct scan will be ordered after scope Objective vital signs Vital Sign Date Time Temp Pulse Resp B/P (MAP) Pulse Ox O2 Delivery O2 Flow Rate FiO2 07/14/24 10:10 107 20 100/58 (72) 98 30 07/14/24 06:00 Mechanical Ventilator+ 07/14/24 04:00 98.1 98.1 Total Intake and Output 07/13/24 07/13/24 07/14/24 15:00 23:00 07:00 Intake Total 3691.40 ml 1135.70 ml 1040.40 ml Output Total 850 ml 2100 ml Balance 3691.40 ml 285.70 ml -1059.60 ml medications Current Medications Medications Dose Ordered Sig/Erik Route Start Time Stop Time Status Last Admin Dose Admin Ondansetron HCl 4 mg Q4HP PRN IV 07/01/24 02:45 Midodrine 10 mg TID@0600,1200,1800 PO 07/01/24 06:00 07/14/24 06:33 10 MG Thiamine HCl 100 mg DAILY PO 07/03/24 10:00 07/13/24 11:25 100 MG Haloperidol Lactate 5 mg Q8HP PRN IM 07/04/24 00:00 07/05/24 22:48 5 MG Norepinephrine Bitartrate 250 ml @ 3.75 mls/hr Q24H IV 07/07/24 09:30 07/13/24 00:48 7.5 MLS/HR Phenylephrine HCl 250 ml @ 30 mls/hr Q8H20M IV 07/07/24 09:30 Fentanyl Citrate 250 ml @ 2.5 mls/hr Q24H IV 07/07/24 09:30 07/14/24 03:15 32.5 MLS/HR Hydrocortisone Sodium Succinate 50 mg Q6HR IV 07/07/24 12:00 07/14/24 06:33 50 MG Meropenem 50 ml @ 17 mls/hr DAILY IV 07/08/24 10:00 07/13/24 10:00 17 MLS/HR Vasopressin 20 units/Sodium Chloride 100 ml @ 9 mls/hr Q11H7M IV 07/07/24 12:30 07/10/24 01:52 6 MLS/HR Pantoprazole Sodium 50 ml @ 10 mls/hr Q5H IV 07/07/24 17:15 07/14/24 06:59 10 MLS/HR Octreotide Acetate 500 mcg/ Sodium Chloride 100 ml @ 10 mls/hr Q10H IV 07/07/24 17:15 07/13/24 17:40 10 MLS/HR Lactulose 300 ml Q6HR NH 07/08/24 00:00 07/14/24 06:00 300 ML Lorazepam 1 mg Q5MINP PRN IV 07/08/24 00:00 Vancomycin HCl 0 ml @ 0 mls/hr UD IV 07/08/24 09:30 Propofol 100 ml @ 2.775 mls/ hr Q24H IV 07/08/24 10:00 07/13/24 17:16 5.55 MLS/HR Potassium Chloride 100 ml @ 50 mls/hr Q2H IV 07/09/24 14:30 07/09/24 18:29 UNV Diagnostic Test (Pha) 1 strip Q6HR 07/10/24 00:00 07/14/24 06:00 1 STRIP Insulin Human Regular FOLLOW SLIDING SCALE Q6HR SC 07/10/24 00:00 07/14/24 06:35 12 UNITS Dextrose 50 ml UD IV 07/10/24 00:00 Amino Acids 0 ml @ 0 mls/hr PER PHARMACY IV 07/10/24 10:00 Vancomycin HCl 0 ml @ 0 mls/hr UD IV 07/10/24 15:30 Cancel Metolazone 10 mg DAILY NG 07/12/24 10:00 07/13/24 11:25 10 MG Sodium Chloride 60 meq/Potassium Chloride 60 meq/ Magnesium Sulfate 8 meq/ Multivitamins 10 ml/Insulin Human Regular 22 units/ Amino Acids/ Dextrose 1,357.22 ml @ 56 mls/hr [id number] IV 07/13/24 22:00 07/14/24 21:59 07/13/24 23:45 56 MLS/HR Bumetanide 2.5 mg DAILY IV 07/14/24 10:00 Albumin Human 100 ml @ 100 mls/hr Q1HR IV 07/14/24 09:00 07/14/24 10:59 Examination General Appearance: intubated HEENT: anisocoria, bleeding through the mouth Respiratory: left IJ cath right HD cath Clear to auscultation, Normal air movement Cardiovascular: Regular rate, Normal S1, Normal S2, No murmurs, no chest wall tenderness Abdominal: ascities Extremities: No clubbing, No cyanosis, No edema, Normal pulses, Skin: Generalized yellow discoloration of skin, petechial/purpuric lesion upper limbs laboratory and microbiology Laboratory Tests 07/14/24 03:28 Test 07/14/24 03:28 Range/Units Serum Glucose 276 #H 74-106 mg/dL Microbiology Date/Time Source Procedure Growth Status 07/07/24 09:58 Trachea Gram Stain - Final Complete 07/07/24 09:58 Respiratory Culture - Final Presumptive Jn albicans Complete 07/01/24 17:21 Voided Urine Urine Culture - Final Enterococcus faecium Complete 07/01/24 08:53 Ascities Fluid Gram Stain - Final Complete 07/01/24 08:53 Ascities Fluid Body Fluid Culture - Final Complete 06/30/24 21:52 Blood Blood Culture - Final NO GROWTH AFTER 5 DAYS OF INCUBATION. Complete Problem List/Assessment/Plan Problem List/Assessment/Plan Neurology #Acute metabolic encephalopathy due to hepatic and uremic encephalopathy #GCS deterioration requiring intubation Intubated. Currently sedated with fentanyl and propofol drip new head ct scan after scope Cardiology #Shock, likely multifactorial septic, hypovolemic Levophed 2 mcg/min during the night Central line and A line placed. Trend lactate and MAP Pulmonary #Acute hypoxic respiratory failure requiring mechanical ventilation #Vent dependent, intubated Vent settings: PEEP 5, TV 500, RR 20, FiO2 30%.Continue ventilator support, monitor ABGs: respiratory acidosis: increase TV Hematology #Severe anemia, likely due to GI bleeding #Thrombocytopenia due to liver failure 6 URBC, 4 FFP, 5 Units of platelets and 1 unit of cryoprecipitates hb 8.2 plat [id number]: new ordered for 1 unit of platelets and FFP Continue PPI drip. GI consulted, concern for possible esophageal varices: possible EGD today Infectious Disease #Septic shock, likely secondary to UTI and spontaneous bacterial peritonitis #Possible aspiration pneumonia: gram+/gram - Urine culture positive for enterococcus, blood culture no growth x5 days. Sputum culture:positive for jn (colonization): no need of antifungal for now On Meropenem+ vancomycin Continue dual coverage. #SBP Paracentesis: 7.8 L removed 07/12/24 high WBC in ascitic fluid (fat admission). Octreotide and antibiotics ongoing. GI/Hepatology #Liver cirrhosis secondary to alcohol use #Massive ascites #Possible esophageal varices #Upper GI bleed, unspecified location GI consulted. Octreotide drip, PPI drip, PRBCs transfused. Vitamin K administered. Continue octreotide, PPI. Trend Hgb. Monitor for rebleeding. NG tube lactulose rectal TPN Possible EGD today Renal #CLIFFORD on CKD, likely multifactorial: uremia, hypotension, sepsis #Hyperkalemia #Uremic encephalopathy #Emergency dialysis [facility] initiated HD tday Albumin given Endocrinology #Hypoglycemia TPN Now stable. Monitor glucose q6h. Nutrition #Severe malnutrition TPN Code Status: full code Poor prognosis discussed with sister (POA). Lines/Support Intubated Central line A-line Jordan catheter Durham catheter: 200 cc output Prophylaxis and Orders DVT: SCD GI: PPI drip (Protonix) Bowel: Lactulose Case discussed with Dr Jaydon Riddle discussed with: Patient, Other (rn) My Orders My Orders Orders - AUDRA CRANDALL RESIDENT Procedure Category Date Status Time Abg W/ Co-Ox RT 07/14/24 Logged 04:00 Pheresis Platelets BBK 07/14/24 In Process 09:22 Frozen Plasma BBK 07/14/24 In Process 09:22 Type And Screen BBK 07/14/24 In Process 09:22 Ventilator Orders RT 07/14/24 Transmitted 09:24 Dietary Evaluation Review Comments: 1. Suggest Nepro 1.8 @ 50 ml/hr + 1 pckt ProStat daily; begin @ 10 ml/hr, advance SLOWLY by 10 ml Q12 hrs to goal-rate of 50 ml/hr continuously 2. Provide minimal free water flushes of 30 ml Q6 hrs (120 ml total) for tube patency; adjust PRN/per MD discretion 3. Continue to monitor/replete lytes, especially K, Mag, Phos given high refeeding risk; add 100 mg thiamine daily x 7 days 4. Should lytes drop, maintain current rate of EN and replace to WNL prior to advancing rate of EN further TF Provision: TF at goal to provide 1200 ml total volume, 2160 kcal (+100 kcal via Prostat = 2260 kcal), 97 gm pro (+ 15 gm via Prostat = 112 gm), 15 gm fiber, 1272 mg K, 864 mg Phos, 872 ml H20 (meets 100% est. kcal needs, 100% est. pro needs) Expected Outcomes/Goals: Improved nutritional status, improved hemodynamic stability. Food and Nutrition Intake (Sev: <50% est energy req 5days Fluid Accumulation (Severe): Moderate Fluid Retention Protein Calorie Malnutrition: Severe Is there a minimum of two crit: Yes CC Plasma Assessment Blood Product Administration S: 030 Date of Service: Jul 14, 2024 Billing Provider: ASHLEY GALAN MD Common Visit Codes: 58197-[id number] CARE 30-74 MIN AUDRA CRANDALL RESIDENT Jul 14, 2024 10:41 ASHLEY GALAN MD Jul 14, 2024 21:39
[2024-07-14] MEDS: ALBUMIN 25% 100 ML IV SCH (10:47)
--- NOTE | 2024-07-14 11:02 | DVHPN2 ---
Progress Note - Dictate Date Seen: Jul 14, 2024 Has the PT tested + for MRSA If YES, has PT been informed?: No Medical Necessity Reason Pt with a Central, PICC or Fol: Yes The following are medically ne: Durham Catheter Reason for durham catheter: Strict I&O, Total Immobilization Subjective Mr. Juarez is a 53 years old right-handed gentleman with a history of liver failure, liver cirrhosis, alcoholism, prostatic cancer, anxiety, hepatorenal syndrome, he came to the hospital on 06/30/24 because of for a few days. In the hospital, the patient was found to have severe jaundice, liver failure, coagulopathy, urinary tract infection, sepsis, kidney failure. On 07/08/2023, the patient was had code assistance because of hypotension and he was nonresponsive, the patient was resuscitated, intubated and transferred to ICU I saw him on 11/03/2020 for seizure I have seen and examined the patient, he is sedated, questionably responsive to painful stimuli, questionable gag reflexes He has bleeding from the mouth, unstable H/H Pupil are round, equal, slightly reactive to lights on 07/14/24 Fentanyl 325 mcg/hour, propofol 10 mcg/minute, levo 20 mcg/min Hearing culture, 07/01/2024: Enterococcus faecium Blood culture, 06/30/2024: No growth UDS, 07/01/2024: Negative Plasma alcohol, 06/30/2024: 3.6 Urinalysis, 07/01/2024: WBC: 3958, urine leukocyte esterase: 3+ ABG, 07/07/2024: Combined metabolic and respiratory acidosis, respiratory acidosis WBC/HB/PLT/MCV, 07/07/2024: 19.5/8.2/80/100.9, 07/09/2024: 18. 1/6.8/24/97.7, 07/10/2024: 10.2/7.3/19/90.9 PT/INR/PTT, 07/07/2024: 27.2/2.85/56.7, 07/10/2024: 20.6/2.09/54.2 K 07/07/2024: 6.3 BUN/CR, 07/07/2024: 88/7.62 TBI/AST/ALT/AP, 07/07/2024: 23.5/263/60/73 Lactic acid, 07/07/2024: 6.9, 4.9 Ammonia, 11/02/2020: 98, 11/03/2020: 109, 95, 11/07/2020: 95, 06/30/2024: 54, 07/03/2024: 11, 07/07/2024: 33 Vitamin B12, 07/01/24: 2308 Folic acid, 07/01/24: 11.87 EEG, : [id number] abnormal EEG Chest x-ray, 07/07/2024: Right basilar opacity. Lines and tubes in appropriate position. CT head, 08/18/2020: No acute intracranial abnormality identified. Mild cerebral volume loss. Cerebral atherosclerosis CT head, 06/30/2024: No acute intracranial abnormality CTA, 11/05/2020: No intracranial hemorrhage vital signs Vital Sign Date Time Temp Pulse Resp B/P (MAP) Pulse Ox O2 Delivery O2 Flow Rate FiO2 07/14/24 10:49 97.8 96 20 144/70 97.8 07/14/24 10:10 98 30 07/14/24 06:00 Mechanical Ventilator+ Total Intake and Output 07/13/24 07/13/24 07/14/24 15:00 23:00 07:00 Intake Total 3691.40 ml 1135.70 ml 1040.40 ml Output Total 850 ml 2100 ml Balance 3691.40 ml 285.70 ml -1059.60 ml medications Current Medications Medications Dose Ordered Sig/Erik Route Start Time Stop Time Status Last Admin Dose Admin Ondansetron HCl 4 mg Q4HP PRN IV 07/01/24 02:45 Midodrine 10 mg TID@0600,1200,1800 PO 07/01/24 06:00 07/14/24 06:33 10 MG Thiamine HCl 100 mg DAILY PO 07/03/24 10:00 07/13/24 11:25 100 MG Haloperidol Lactate 5 mg Q8HP PRN IM 07/04/24 00:00 07/05/24 22:48 5 MG Norepinephrine Bitartrate 250 ml @ 3.75 mls/hr Q24H IV 07/07/24 09:30 07/13/24 00:48 7.5 MLS/HR Phenylephrine HCl 250 ml @ 30 mls/hr Q8H20M IV 07/07/24 09:30 Fentanyl Citrate 250 ml @ 2.5 mls/hr Q24H IV 07/07/24 09:30 07/14/24 03:15 32.5 MLS/HR Hydrocortisone Sodium Succinate 50 mg Q6HR IV 07/07/24 12:00 07/14/24 06:33 50 MG Meropenem 50 ml @ 17 mls/hr DAILY IV 07/08/24 10:00 07/13/24 10:00 17 MLS/HR Vasopressin 20 units/Sodium Chloride 100 ml @ 9 mls/hr Q11H7M IV 07/07/24 12:30 07/10/24 01:52 6 MLS/HR Pantoprazole Sodium 50 ml @ 10 mls/hr Q5H IV 07/07/24 17:15 07/14/24 06:59 10 MLS/HR Octreotide Acetate 500 mcg/ Sodium Chloride 100 ml @ 10 mls/hr Q10H IV 07/07/24 17:15 07/13/24 17:40 10 MLS/HR Lactulose 300 ml Q6HR [place] 07/08/24 00:00 07/14/24 06:00 300 ML Lorazepam 1 mg Q5MINP PRN IV 07/08/24 00:00 Vancomycin HCl 0 ml @ 0 mls/hr UD IV 07/08/24 09:30 Propofol 100 ml @ 2.775 mls/ hr Q24H IV 07/08/24 10:00 07/13/24 17:16 5.55 MLS/HR Potassium Chloride 100 ml @ 50 mls/hr Q2H IV 07/09/24 14:30 07/09/24 18:29 UNV Diagnostic Test (Pha) 1 strip Q6HR 07/10/24 00:00 07/14/24 06:00 1 STRIP Insulin Human Regular FOLLOW SLIDING SCALE Q6HR SC 07/10/24 00:00 07/14/24 06:35 12 UNITS Dextrose 50 ml UD IV 07/10/24 00:00 Amino Acids 0 ml @ 0 mls/hr PER PHARMACY IV 07/10/24 10:00 Vancomycin HCl 0 ml @ 0 mls/hr UD IV 07/10/24 15:30 Cancel Metolazone 10 mg DAILY NG 07/12/24 10:00 07/13/24 11:25 10 MG Sodium Chloride 60 meq/Potassium Chloride 60 meq/ Magnesium Sulfate 8 meq/ Multivitamins 10 ml/Insulin Human Regular 22 units/ Amino Acids/ Dextrose 1,357.22 ml @ 56 mls/hr [id number] IV 07/13/24 22:00 07/14/24 21:59 07/13/24 23:45 56 MLS/HR Bumetanide 2.5 mg DAILY IV 07/14/24 10:00 Albumin Human 100 ml @ 100 mls/hr Q1HR IV 07/14/24 09:00 07/14/24 10:59 07/14/24 10:47 100 MLS/HR objective The patient is well-nourished and well-developed with no distress. The patient is intubated. He has jaundice Bilateral hammertoes and high-arched foot MENTAL STATUS: Subjective CRANIAL NERVES: Pupils are round and reactive.There are corneal reflexes and doll's eyes phenomenon. No signs of facial weakness. There are questionable gagging or coughing reflexes. There was no abnormal skin secretion, abnormal vascular dilatation SENSATION: No responses to pain stimuli. MOTOR: Normal tone in the upper and lower extremity. Normal muscle bulk. No fasciculations. He moves the arms and legs a little bit REFLEXES: Deep tendon reflexes are symmetrical. No pathological reflexes. CEREBELLAR/COORDINATION: Deferred GAIT/STATION: deferred laboratory and microbiology Laboratory Tests 07/14/24 03:28 Test 07/14/24 03:28 Range/Units Serum Glucose 276 #H 74-106 mg/dL Problem List Altered mental status Metabolic cephalopathy Hepatic encephalopathy Hypoxic encephalopathy UTI, sepsis, septic shock Liver failure History of Alcoholism Jaundice Respiratory failure Coagulopathy/oral bleeding Thrombocytopenia Anemia GI on case Anisocoria with left-sided slightly bigger, new since 07/13/2024 according to the nurse, uncertain clinical significance Assessment/Plan Monitoring Supportive treatment ICU care Follow-up labs Stabilize vitals/pressor drip Respiratory support/vent management Thiamine supplementation Lactulose Nephrology on case Pulmonology on case GI on case This medical document was created using an electronic medical record system with [employer] dictation system. Although this document has been carefully reviewed, there may still be some phonetic and typographical errors. These areas are purely typographical due to imperfections of the software programs, and do not reflect any compromise in the patient's medical care. Prognosis guarded Dietary Evaluation Review Comments: 1. Suggest Nepro 1.8 @ 50 ml/hr + 1 pckt ProStat daily; begin @ 10 ml/hr, advance SLOWLY by 10 ml Q12 hrs to goal-rate of 50 ml/hr continuously 2. Provide minimal free water flushes of 30 ml Q6 hrs (120 ml total) for tube patency; adjust PRN/per MD discretion 3. Continue to monitor/replete lytes, especially K, Mag, Phos given high refeeding risk; add 100 mg thiamine daily x 7 days 4. Should lytes drop, maintain current rate of EN and replace to WNL prior to advancing rate of EN further TF Provision: TF at goal to provide 1200 ml total volume, 2160 kcal (+100 kcal via Prostat = 2260 kcal), 97 gm pro (+ 15 gm via Prostat = 112 gm), 15 gm fiber, 1272 mg K, 864 mg Phos, 872 ml H20 (meets 100% est. kcal needs, 100% est. pro needs) Expected Outcomes/Goals: Improved nutritional status, improved hemodynamic stability. Food and Nutrition Intake (Sev: <50% est energy req 5days Fluid Accumulation (Severe): Moderate Fluid Retention Protein Calorie Malnutrition: Severe Is there a minimum of two crit: Yes Plan discussed with: Other CC Plasma Assessment Blood Product Administration S: 0302 ERIC ARIAS MD Jul 14, 2024 11:02
[2024-07-14] MEDS: BUMETANIDE 2.5mg/10ml (0.25 mg/ml) INJ IV SCH (17:33)
--- NOTE | 2024-07-14 19:06 | DVHPN2 ---
Progress Note - Dictate Date Seen: Jul 14, 2024 Has the PT tested + for MRSA If YES, has PT been informed?: No Medical Necessity Reason Pt with a Central, PICC or Fol: Yes The following are medically ne: Durham Catheter Reason for durham catheter: Strict I&O, Total Immobilization Subjective Patient seen and examined at bedside. Sedated, intubated on mechanical ventilator. Overnight events reviewed. vital signs Vital Sign Date Time Temp Pulse Resp B/P (MAP) Pulse Ox O2 Delivery O2 Flow Rate FiO2 07/14/24 18:32 80 20 146/51 (82) 99 30 07/14/24 18:00 Mechanical Ventilator+ 07/14/24 18:00 97.8 97.8 Total Intake and Output 07/13/24 07/13/24 07/14/24 15:00 23:00 07:00 Intake Total 3691.40 ml 1135.70 ml 1162.65 ml Output Total 850 ml 2100 ml Balance 3691.40 ml 285.70 ml -937.35 ml medications Current Medications Medications Dose Ordered Sig/Erik Route Start Time Stop Time Status Last Admin Dose Admin Ondansetron HCl 4 mg Q4HP PRN IV 07/01/24 02:45 Midodrine 10 mg TID@0600,1200,1800 PO 07/01/24 06:00 07/14/24 06:33 10 MG Thiamine HCl 100 mg DAILY PO 07/03/24 10:00 07/13/24 11:25 100 MG Haloperidol Lactate 5 mg Q8HP PRN IM 07/04/24 00:00 07/05/24 22:48 5 MG Norepinephrine Bitartrate 250 ml @ 3.75 mls/hr Q24H IV 07/07/24 09:30 07/13/24 00:48 7.5 MLS/HR Phenylephrine HCl 250 ml @ 30 mls/hr Q8H20M IV 07/07/24 09:30 Fentanyl Citrate 250 ml @ 2.5 mls/hr Q24H IV 07/07/24 09:30 07/14/24 03:15 32.5 MLS/HR Hydrocortisone Sodium Succinate 50 mg Q6HR IV 07/07/24 12:00 07/14/24 17:33 50 MG Meropenem 50 ml @ 17 mls/hr DAILY IV 07/08/24 10:00 07/13/24 10:00 17 MLS/HR Vasopressin 20 units/Sodium Chloride 100 ml @ 9 mls/hr Q11H7M IV 07/07/24 12:30 07/10/24 01:52 6 MLS/HR Pantoprazole Sodium 50 ml @ 10 mls/hr Q5H IV 07/07/24 17:15 07/14/24 18:20 10 MLS/HR Octreotide Acetate 500 mcg/ Sodium Chloride 100 ml @ 10 mls/hr Q10H IV 07/07/24 17:15 07/13/24 17:40 10 MLS/HR Lactulose 300 ml Q6HR OH 07/08/24 00:00 07/14/24 17:33 300 ML Lorazepam 1 mg Q5MINP PRN IV 07/08/24 00:00 Vancomycin HCl 0 ml @ 0 mls/hr UD IV 07/08/24 09:30 Propofol 100 ml @ 2.775 mls/ hr Q24H IV 07/08/24 10:00 07/13/24 17:16 5.55 MLS/HR Potassium Chloride 100 ml @ 50 mls/hr Q2H IV 07/09/24 14:30 07/09/24 18:29 UNV Diagnostic Test (Pha) 1 strip Q6HR 07/10/24 00:00 07/14/24 17:33 1 STRIP Insulin Human Regular FOLLOW SLIDING SCALE Q6HR SC 07/10/24 00:00 07/14/24 17:41 12 UNITS Dextrose 50 ml UD IV 07/10/24 00:00 Amino Acids 0 ml @ 0 mls/hr PER PHARMACY IV 07/10/24 10:00 Vancomycin HCl 0 ml @ 0 mls/hr UD IV 07/10/24 15:30 Cancel Sodium Chloride 60 meq/Potassium Chloride 60 meq/ Magnesium Sulfate 8 meq/ Multivitamins 10 ml/Insulin Human Regular 22 units/ Amino Acids/ Dextrose 1,357.22 ml @ 56 mls/hr [id number] IV 07/13/24 22:00 07/14/24 21:59 07/13/24 23:45 56 MLS/HR Bumetanide 2.5 mg DAILY IV 07/14/24 10:00 07/14/24 17:33 2.5 MG Sodium Chloride 50 meq/Potassium Chloride 40 meq/ Magnesium Sulfate 10 meq/ Multivitamins 10 ml/Insulin Human Regular 26 units/ Amino Acids/ Dextrose 1,495.26 ml @ 62 mls/hr Q24H8M IV 07/14/24 22:00 07/15/24 21:59 objective Gen.: Patient lying in bed in medical ICU. Sedated, intubated on mechanical ventilator. Head: Normocephalic, atraumatic. Eyes: PERRLA. Ears: Normal external anatomy. Throat: Endotracheal tube and orogastric tube in place. Neck: Supple, trachea midline. Chest: Transmitted breath sounds bilaterally. Decreased air entry bilaterally. No wheezing. Bibasilar crackles. Cardiovascular: Positive S1, positive S2. Regular rate and rhythm. Abdomen: Positive bowel sounds in all 4 quadrants. Soft, nontender, nondistended. : Durham in place. Normal external genitalia. Rectal: Deferred. Skin: Warm, dry. Intact. Extremities: 2+ radial pulses bilaterally. No lower extremity edema. Neuro: Sedated laboratory and microbiology Laboratory Tests 07/14/24 03:28 Test 07/14/24 03:28 Range/Units Serum Glucose 276 #H 74-106 mg/dL Assessment/Plan Impression: Acute hypercarbic respiratory failure On mechanical ventilator Acute metabolic encephalopathy Shock Liver cirrhosis Hx of ETOH abuse Thrombocytopenia Events: Remains on vent support On AC mode; RR 20, VT 450, PEEP 5, FiO2 30% Sedated on Propofol/Fentanyl ABG reviewed, notable for acidemia S/p paracentesis on 07/13/24 Pressors (Levophed) for hemodynamic support Titrate to keep mean arterial pressure greater than 65 mmHg. Continue antibiotics Continue IV steroids Continue Protonix Monitor hemoglobin S/p 1 unit FFP and 1 unit cryo yesterday Monitor platelets d/t thrombocytopenia - 22 K EGD revealed ulcers, hiatal hernia, erosive esophagitis. Awaiting biopsy results. GI recs appreciated Diurese w/ Bumex drip HD per Nephrology Monitor renal function Monitor electrolytes. Supplement as necessary. Monitor ins and outs. CXR image and report reviewed. Labs and imaging reviewed. Rest of plan as noted below. Plan: s/p intubation on mechanical ventilator. On AC mode; RR 20, VT 450, PEEP 5, FiO2 30% Titrate FIO2 to keep O2 saturation above 90%. VAP bundle. Daily ABG and CXR while intubated Sedated for vent synchrony Continue antibiotics. Protonix drip GI recommendations appreciated Pressors as necessary for hemodynamic support Titrate to keep mean arterial pressure greater than 65 mmHg. Accu-Cheks, ISS PRN. Monitor renal function Monitor electrolytes. Supplement as necessary. Monitor ins and outs. Maintain euvolemia. GI prophylaxis. DVT prophylaxis. Prognosis: Poor given patient's multiple co-morbidities. Condition: Critical Rest of plan per hospitalist and other consultants. A total of 35 minutes of critical care time was spent reviewing the patient record, examining the patient, making a diagnostic and therapeutic plan, discussing this plan with the medical personnel, following up on diagnostic studies and following the patient for clinical stability excluding any and all procedures. At least 50% of this time was spent in direct, [id number] contact. Thank you Dr. Ovalle for allowing me to participate in this patient's care. Further recommendations will depend on the patient's clinical course. Please do not hesitate to contact me if you have any questions or concerns. This medical document was created using an electronic medical record system with [employer] dictation system. Although these documentations are being carefully reviewed, there may still be some phonetic and typographical changes. The errors are purely typographical, due to imperfection on the software program, and do not reflect any compromise in the patient's medical care. Dietary Evaluation Review Comments: 1. Suggest Nepro 1.8 @ 50 ml/hr + 1 pckt ProStat daily; begin @ 10 ml/hr, advance SLOWLY by 10 ml Q12 hrs to goal-rate of 50 ml/hr continuously 2. Provide minimal free water flushes of 30 ml Q6 hrs (120 ml total) for tube patency; adjust PRN/per MD discretion 3. Continue to monitor/replete lytes, especially K, Mag, Phos given high refeeding risk; add 100 mg thiamine daily x 7 days 4. Should lytes drop, maintain current rate of EN and replace to WNL prior to advancing rate of EN further TF Provision: TF at goal to provide 1200 ml total volume, 2160 kcal (+100 kcal via Prostat = 2260 kcal), 97 gm pro (+ 15 gm via Prostat = 112 gm), 15 gm fiber, 1272 mg K, 864 mg Phos, 872 ml H20 (meets 100% est. kcal needs, 100% est. pro needs) Expected Outcomes/Goals: Improved nutritional status, improved hemodynamic stability. Food and Nutrition Intake (Sev: <50% est energy req 5days Fluid Accumulation (Severe): Moderate Fluid Retention Protein Calorie Malnutrition: Severe Is there a minimum of two crit: Yes Plan discussed with: Other (RN) Critical Care Time(min): 35 CC Plasma Assessment Blood Product Administration S: [id number] JOAQUÍN VILLAFANA MD Jul 14, 2024 19:06
--- NOTE | 2024-07-14 19:28 | DVH ---
CT HEAD WITHOUT CONTRAST INDICATION: R/O STROKE COMPARISON: CT HEAD WITHOUT CONTRAST on DOS: 06/30/24 TECHNIQUE: CT of the head without intravenous contrast. RADIATION DOSE: CTDIvol: 55.21 mGy, DLP: 1105.98 mGy*cm FINDINGS: There is no evidence of intracranial hemorrhage, infarct, extra-axial collection, mass effect, midli ne shift, herniation or hydrocephalus. Mild ventricular and sulcal enlargement related to mild cerebr al volume loss. The croft-white differentiation is intact. Visualized paranasal sinuses are clear. Sma ll amount of nonspecific fluid in bilateral mastoid tips. Soft tissues and osseous structures are unr emarkable. IMPRESSION: No acute intracranial abnormality identified.
--- NOTE | 2024-07-14 19:28 | DVHOP2 ---
Operative Report DATE OF OPERATION: 07/14/24 PROCEDURE: Upper Endoscopy with biopsy. PREOPERATIVE INDICATION: The patient is a 53 -year-old male undergoing endoscopy for UGI bleed POSTOPERATIVE DIAGNOSES: 1. Evidence of extensive ulceration of the gastric body and antrum with necrosis and overlying eschar most prominent in the antrum causing oozing and pylorus 2. 1-2 cm sliding-type hiatal hernia with grade B erosive esophagitis with some distal esophageal ulcers which were not bleeding and there were no significant esophageal varices 3. Otherwise normal examination up to the 2nd part of the duodenum with good bile drainage PROCEDURE PERFORMED BY: Shantal Stahl GI NURSE: Jun SCOPE: Olympus videoendoscope. ASA CLASS: 3 PREOPERATIVE MEDICATIONS: Patient previously intubated and sedated PROCEDURE IN DETAIL: After obtaining an informed consent, the patient was placed on left lateral position. The patient was then sedated with the above medications. A bite block was placed between his teeth. The endoscope was then passed through the oropharynx, into the esophagus, and through the stomach and pylorus up to the second and third part of the duodenum. The endoscope was then withdrawn. Second and 3rd part of the duodenal were normal as was the duodenal bulb. The pyloric channel was in spasm and inflamed The pre-pyloric area antrum and distal body showed evidence of necrosis extensive ulceration and overlying eschar and old blood There was oozing from this area. On retroflexion the fundus and cardia were other was normal except for pull of some old blood and mucus The endoscope was then withdrawn into the distal esophagus where the patient had a 1-2 cm sliding-type hiatal hernia with grade B erosive esophagitis and some distal esophageal ulcers Duodenal gastric and esophageal biopsies were obtained. The remaining mid to proximal esophagus and oropharynx were unremarkable. There were no varices The patient tolerated the procedure well without difficulty. COMPLICATIONS : None SPECIMENS: Duodenal biopsies Gastric biopsies Esophageal biopsies DISPOSITION: Stable Continue to monitor in ICU PLAN: 1. Await for biopsy result 2. Will place pt on Protonix 40 mg bid IV after the Protonix drips is completed in one or two days 3. Taper off the IV octreotide drip 4. Continue supportive care with transfusions correcting coagulopathy and giving platelets and try to keep his perfusion adequate 5. Carafate suspension 1 g via NG tube 6. Consider starting enteral tube feedings in 48-72 hours SHANTAL STAHL MD Jul 14, 2024 19:28
[2024-07-14] MEDS: TPN PER PHARMACY IV NR (21:36)
[2024-07-14] MEDS: SUCRALFATE 1 GM/10 ML ORAL SUSP PO SCH (21:42)
[2024-07-14] MEDS: EPOETIN ALFA-EPBX 10,000 UNIT/1ML VIAL SC ONE (21:43)
[2024-07-15] VITALS (108 sets, daily range): BP systolic 75–186; BP diastolic 37–71; PULSE 81–104; RESP 11–25; TEMP 97.8–98.2; O2SAT 94–100
[2024-07-15 03:53] LABS: Hematocrit 24.1 % (41.0-53.0); Platelet Count (auto) 25 10^3/uL (140-450); Red Blood Cells 2.68 10^6/uL (4.5-5.90)
[2024-07-15 03:56] LABS: Hemoglobin 8.3 g/dL (13.5-17.5); Mean Corpuscular Hgb Conc. 34.4 g/dL (32.0-36.0); Red Cell Distribution Width 16.6 % (11.8-14.3); White Blood Cell 10.2 10^3/uL (4.4-10.8)
[2024-07-15 04:04] LABS: Alanine Aminotransferase 38 U/L (7-40); Alkaline Phosphatase 78 U/L (46-116); Anion Gap 13 (5-15); Calcium 9.7 mg/dL (8.7-10.4); Carbon Dioxide 27 mmol/L (20-31); Chloride 102 mmol/L (98-107); Potassium 3.6 mmol/L (3.5-5.1); Sodium 142 mmol/L (136-145)
[2024-07-15 04:05] LABS: Albumin 3.3 g/dL (3.2-4.8)
[2024-07-15 04:07] LABS: BUN/Creatinine Ratio 22.5 (10.0-20.0)
[2024-07-15 04:36] LABS: Basophils % (manual) 0 (0.0-2.0); Blast Cells 0; Eosinophils % (manual) 0 (0-7); Metamyelocytes % 0; Myelocytes % 0; Promyelocytes % 0; Reactive Lymphocytes 0
[2024-07-15 04:45] LABS: Aspartate Aminotransferase 42 U/L (13-40); Bilirubin, Total 17.5 mg/dL (0.2-1.0); Blood Urea Nitrogen 79 mg/dL (9-23); Glucose 267 mg/dL (74-106); Total Protein 5.3 g/dL (5.7-8.2)
--- NOTE | 2024-07-15 05:02 | DVH ---
CHEST RADIOGRAPH Indication: Acute resp failure Technique: Single frontal view of the chest was obtained Comparison: XY CHEST PORTABLE on DOS: 07/14/24 FINDINGS: Lines and Tubes: Right central venous catheter terminates in the superior vena cava. Left central ve nous catheter terminates in the superior vena cava. The endotracheal tube terminates 4.2 cm above the sim. NG Lungs: Bibasilar airspace disease. Pleura: No effusion. No pneumothorax. Cardiomediastinal contours: Cardiomegaly. Bones: No acute osseous abnormality. IMPRESSION: 1. Stable position of the support lines and tubes. 2. Bibasilar airspace disease which may reflect atelectasis or pneumonia.
[2024-07-15 06:45] LABS: Band Neutrophils % (manual) 1; Lymphocytes % (manual) 15 (10.0-50.0); Monocytes % (manual) 13 (0-12)
[2024-07-15 06:46] LABS: Platelet Estimate Markedly Decreased
[2024-07-15 06:51] LABS: Base Excess 0.6 mmol/L (-2.0-3.0)
[2024-07-15] MEDS: SODIUM CHL 0.9% 1000 ML BAG XX ONE (07:45)
[2024-07-15] MEDS ORDERED: NOREPINEPHRINE 8 MG/250ML KIT 250 ML IV SCH (08:30)
[2024-07-15] MEDS: NOREPINEPHRINE 8 MG/250ML KIT 250 ML IV SCH (08:45)
--- NOTE | 2024-07-15 11:19 | DVHPN2 ---
Progress Note - Dictate Date Seen: Jul 15, 2024 Has the PT tested + for MRSA If YES, has PT been informed?: No Medical Necessity Reason Pt with a Central, PICC or Fol: Yes The following are medically ne: Durham Catheter Reason for durham catheter: Strict I&O, Total Immobilization Subjective Mr. Juarez is a 53 years old right-handed gentleman with a history of liver failure, liver cirrhosis, alcoholism, prostatic cancer, anxiety, hepatorenal syndrome, he came to the hospital on 06/30/24 because of for a few days. In the hospital, the patient was found to have severe jaundice, liver failure, coagulopathy, urinary tract infection, sepsis, kidney failure. On 07/08/2023, the patient was had code assistance because of hypotension and he was nonresponsive, the patient was resuscitated, intubated and transferred to ICU I saw him on 11/03/2020 for seizure I have seen and examined the patient, he is sedated, responsive to painful stimuli with eyes opening, questionable gag reflexes He has bleeding from the mouth, Pupil are round, equal, slightly reactive to lights on 07/14/24 Pupil are round, reactive to lights on 07/14/24, Rt: 6-7mm, Rt: 8mm, later Lt: 4mm, Rt: 3-4mm. No associated abnormal vascular dilatation or skin secretion Fentanyl 325 mcg/hour, propofol 10 mcg/minute, levo 4 mcg/min Hearing culture, 07/01/2024: Enterococcus faecium Blood culture, 06/30/2024: No growth UDS, 07/01/2024: Negative Plasma alcohol, 06/30/2024: 3.6 Urinalysis, 07/01/2024: WBC: 3958, urine leukocyte esterase: 3+ ABG, 07/07/2024: Combined metabolic and respiratory acidosis, respiratory acidosis WBC/HB/PLT/MCV, 07/07/2024: 19.5/8.2/80/100.9, 07/09/2024: 18. 1/6.8/24/97.7, 07/10/2024: 10.2/7.3/19/90.9 PT/INR/PTT, 07/07/2024: 27.2/2.85/56.7, 07/10/2024: 20.6/2.09/54.2 K 07/07/2024: 6.3 BUN/CR, 07/07/2024: 88/7.62 TBI/AST/ALT/AP, 07/07/2024: 23.5/263/60/73 Lactic acid, 07/07/2024: 6.9, 4.9 Ammonia, 11/02/2020: 98, 11/03/2020: 109, 95, 11/07/2020: 95, 06/30/2024: 54, 07/03/2024: 11, 07/07/2024: 33 Vitamin B12, 07/01/24: 2308 Folic acid, 07/01/24: 11.87 EEG, : Domy-[id number]-[id number] abnormal EEG Chest x-ray, 07/07/2024: Right basilar opacity. Lines and tubes in appropriate position. CT head, 08/18/2020: No acute intracranial abnormality identified. Mild cerebral volume loss. Cerebral atherosclerosis CT head, 06/30/2024: No acute intracranial abnormality CT head, 07/14/2024: No acute intracranial abnormality identified CTA, 11/05/2020: No intracranial hemorrhage vital signs Vital Sign Date Time Temp Pulse Resp B/P (MAP) Pulse Ox O2 Delivery O2 Flow Rate FiO2 07/15/24 10:36 89/47 07/15/24 09:57 96 24 97 30 07/15/24 06:00 Mechanical Ventilator+ 07/14/24 23:30 97.9 97.9 Total Intake and Output 07/14/24 07/14/24 07/15/24 15:00 23:00 07:00 Intake Total 1336.00 ml 884.25 ml 992.90 ml Output Total 4050 ml 600 ml Balance 1336.00 ml -3165.75 ml 392.90 ml medications Current Medications Medications Dose Ordered Sig/Erik Route Start Time Stop Time Status Last Admin Dose Admin Ondansetron HCl 4 mg Q4HP PRN IV 07/01/24 02:45 Midodrine 10 mg TID@0600,1200,1800 PO 07/01/24 06:00 07/15/24 05:24 10 MG Thiamine HCl 100 mg DAILY PO 07/03/24 10:00 07/15/24 10:04 100 MG Haloperidol Lactate 5 mg Q8HP PRN IM 07/04/24 00:00 07/05/24 22:48 5 MG Phenylephrine HCl 250 ml @ 30 mls/hr Q8H20M IV 07/07/24 09:30 Fentanyl Citrate 250 ml @ 2.5 mls/hr Q24H IV 07/07/24 09:30 07/15/24 08:51 32.5 MLS/HR Hydrocortisone Sodium Succinate 50 mg Q6HR IV 07/07/24 12:00 07/15/24 05:24 50 MG Meropenem 50 ml @ 17 mls/hr DAILY IV 07/08/24 10:00 07/15/24 10:05 17 MLS/HR Vasopressin 20 units/Sodium Chloride 100 ml @ 9 mls/hr Q11H7M IV 07/07/24 12:30 07/10/24 01:52 6 MLS/HR Pantoprazole Sodium 50 ml @ 10 mls/hr Q5H IV 07/07/24 17:15 07/15/24 10:04 10 MLS/HR Lorazepam 1 mg Q5MINP PRN IV 07/08/24 00:00 Vancomycin HCl 0 ml @ 0 mls/hr UD IV 07/08/24 09:30 Potassium Chloride 100 ml @ 50 mls/hr Q2H IV 07/09/24 14:30 07/09/24 18:29 UNV Diagnostic Test (Pha) 1 strip Q6HR 07/10/24 00:00 07/15/24 05:26 1 STRIP Insulin Human Regular FOLLOW SLIDING SCALE Q6HR SC 07/10/24 00:00 07/15/24 05:39 12 UNITS Dextrose 50 ml UD IV 07/10/24 00:00 Amino Acids 0 ml @ 0 mls/hr PER PHARMACY IV 07/10/24 10:00 Vancomycin HCl 0 ml @ 0 mls/hr UD IV 07/10/24 15:30 Cancel Bumetanide 2.5 mg DAILY IV 07/14/24 10:00 07/15/24 10:03 2.5 MG Sodium Chloride 50 meq/Potassium Chloride 40 meq/ Magnesium Sulfate 10 meq/ Multivitamins 10 ml/Insulin Human Regular 26 units/ Amino Acids/ Dextrose 1,495.26 ml @ 62 mls/hr Q24H8M IV 07/14/24 22:00 07/15/24 21:59 07/14/24 21:36 62 MLS/HR Sucralfate 1 gm QID@0600,1130,1700,2200 PO 07/14/24 22:00 07/15/24 05:23 1 GM Norepinephrine Bitartrate 250 ml @ 3.75 mls/hr Q24H IV 07/15/24 08:45 Lactulose 30 ml Q6HR PO 07/15/24 12:00 objective The patient is well-nourished and well-developed with no distress. The patient is intubated. He has jaundice Bilateral hammertoes and high-arched foot MENTAL STATUS: Subjective CRANIAL NERVES: Pupils are round and reactive.There are corneal reflexes and doll's eyes phenomenon. No signs of facial weakness. There are questionable gagging or coughing reflexes. There was no abnormal skin secretion, abnormal vascular dilatation SENSATION: No responses to pain stimuli. MOTOR: Normal tone in the upper and lower extremity. Normal muscle bulk. No fasciculations. He moves the arms and legs a little bit REFLEXES: Deep tendon reflexes are symmetrical. No pathological reflexes. CEREBELLAR/COORDINATION: Deferred GAIT/STATION: deferred laboratory and microbiology Laboratory Tests 07/15/24 03:20 Test 07/15/24 03:20 Range/Units Serum Glucose 267 H 74-106 mg/dL Problem List Altered mental status Metabolic cephalopathy Hepatic encephalopathy Hypoxic encephalopathy UTI, sepsis, septic shock Liver failure History of Alcoholism Jaundice Respiratory failure Coagulopathy/oral bleeding Thrombocytopenia Anemia GI on case Anisocoria with left-sided slightly bigger, new since 07/13/2024 according to the nurse, uncertain clinical significance Assessment/Plan Monitoring Supportive treatment ICU care Follow-up labs Stabilize vitals/pressor drip Respiratory support/vent management Thiamine supplementation Lactulose Nephrology on case Pulmonology on case GI on case This medical document was created using an electronic medical record system with [employer] computerized dictation system. Although this document has been carefully reviewed, there may still be some phonetic and typographical errors. These areas are purely typographical due to imperfections of the software programs, and do not reflect any compromise in the patient's medical care. Prognosis poor, guarded Dietary Evaluation Review Comments: 1. Suggest Nepro 1.8 @ 50 ml/hr + 1 pckt ProStat daily; begin @ 10 ml/hr, advance SLOWLY by 10 ml Q12 hrs to goal-rate of 50 ml/hr continuously 2. Provide minimal free water flushes of 30 ml Q6 hrs (120 ml total) for tube patency; adjust PRN/per MD discretion 3. Continue to monitor/replete lytes, especially K, Mag, Phos given high refeeding risk; add 100 mg thiamine daily x 7 days 4. Should lytes drop, maintain current rate of EN and replace to WNL prior to advancing rate of EN further TF Provision: TF at goal to provide 1200 ml total volume, 2160 kcal (+100 kcal via Prostat = 2260 kcal), 97 gm pro (+ 15 gm via Prostat = 112 gm), 15 gm fiber, 1272 mg K, 864 mg Phos, 872 ml H20 (meets 100% est. kcal needs, 100% est. pro needs) Expected Outcomes/Goals: Improved nutritional status, improved hemodynamic stability. Food and Nutrition Intake (Sev: <50% est energy req 5days Fluid Accumulation (Severe): Moderate Fluid Retention Protein Calorie Malnutrition: Severe Is there a minimum of two crit: Yes Plan discussed with: Other Critical Care Time(min): 30 CC Plasma Assessment Blood Product Administration S: [id number] ERIC ARIAS MD Jul 15, 2024 11:19
[2024-07-15] MEDS: LACTULOSE 20Gm/30ML SOLN PO SCH (12:23)
--- NOTE | 2024-07-15 13:42 | DVHPNRES ---
Progress Note Date Seen: Jul 15, 2024 Resident Creating Document: AUDRA CRANDALL RESIDENT Has the PT tested + for MRSA If YES, has PT been informed?: No Medical Necessity Reason Pt with a Central, PICC or Fol: Yes The following are medically ne: Durham Catheter Reason for durham catheter: Strict I&O, Total Immobilization Subjective Review of Systems A 53-year-old male with past medical history of liver cirrhosis (due to alcohol use disorder)and CKD brought to the hospital due to altered mental status. Family were called, but the didnt answer, all the info was taken to the medical records Per EMS reports patient was taken from home and per family member he has been altered since 1 week which has progressively worsened. He was admitted on 10/31/2020 and DVT H due to GI bleeding, EGD was performed, showed gastritis with no active bleeding. PMHx: Liver cirrhosis due to alcohol use disorder, CKD Social history: Has history of alcohol use disorder 07/01/2024: paracentesis done 7LT, multiple wbc in the ascitic fluid, labile BPs, midodrine and octeotride started, zosyn and linezolid due to sepsis and possible SBP, start levophed if MAP below 60, fluids were given, protonix BID 07/02/2024: renal function is declining, hb is stable, FOB neg, protonix drip started, bumex drip started 07/06/2024: urine culture positive for enterococcus, patient is on zosyn and linezolid, hyperkalemia 5.8 07/07/2024: At around 9 a.m., patient was found gasping for air with MAP of 53. Rapid response was called. Mental status deteriorated (GCS drop), requiring intubation. Central line and Jordan catheter were placed. Started on vasopressors: Levophed up to 30 mcg/min and Vasopressin 0.04 U/min. Emergent dialysis was initiated due to uremia and hyperkalemia (K 6.3, later improved to 4.1). ABG showed compensated respiratory status. Patient was found to be hypoglycemic (glucose 16) during event. He is now sedated on fentanyl drip. Labs showed Hgb 6.6likely due to GI bleed; received blood products, Vitamin K, and PPI drip. Prognosis remains poor, and case was re-discussed with family; full code until now 07/08/2024: yesterday HD filtration only, platelets trending down, Dc linezolid, start vancomycin, start low dose propofol, levophed off, still on vasopressin, , GI ok with NG tube, minimal vent settings (fio2 40%) 07/09/2024: 1 apheresis and 1 rbc given, still bloody secretions from mouth, albumin and bumex given, clinimix started by GI, min vent settings, still on vasopressin, octreotide and protonix drip, HD today 07/13/2024: Pt is on TPN, so far in this admission: 6 URBC, 4 FFP, 5 Units of platelets and 1 unit of cryoprecipitates given, dialysis yesterday 2LT, new paracentesis on 07/12/2024 7.8 Lt, jn is growing in the sputum (colonization), hb 8.2 plat [id number] ABG: mild respiratory acidosis, levophed 4 mcg, protonix and octreotide drip, vancomycin and meropenem, no fevers, minimal vent settings 07/14/2024: hb 8,2 plat 22, ABG respiratory acidosis pH 7.27 pCO2 56.2 bicarb 25, tidal volume was increased 500, possible scope today, frozen plasma and platelets ordered, right now patient is getting dialysis, Levophed during the night 2 mcg, bleeding through the G-tube 350 cc, Durham 200cc urine, no fevers, head ct scan will be ordered after scope 07/15/2024: hb 8.3 plat 25 ABG respiratory alkalosis RR 24 TV 500, scope yesterday:antrum with necrosis and overlying eschar most prominent in the antrum causing oozing and pylorus, dialysis yesterday 3LT out, levophed 4 mcg, output in the gtube 150cc, normal head ct scan Objective vital signs Vital Sign Date Time Temp Pulse Resp B/P (MAP) Pulse Ox O2 Delivery O2 Flow Rate FiO2 07/15/24 13:00 96 24 116/58 (77) 97 112/64 (80) 07/15/24 12:58 30 07/15/24 12:00 98.2 98.2 07/15/24 12:00 Mechanical Ventilator+ Total Intake and Output 07/14/24 07/14/24 07/15/24 15:00 23:00 07:00 Intake Total 1336.00 ml 884.25 ml 992.90 ml Output Total 4050 ml 600 ml Balance 1336.00 ml -3165.75 ml 392.90 ml medications Current Medications Medications Dose Ordered Sig/Erik Route Start Time Stop Time Status Last Admin Dose Admin Ondansetron HCl 4 mg Q4HP PRN IV 07/01/24 02:45 Midodrine 10 mg TID@0600,1200,1800 PO 07/01/24 06:00 07/15/24 12:24 10 MG Thiamine HCl 100 mg DAILY PO 07/03/24 10:00 07/15/24 10:04 100 MG Haloperidol Lactate 5 mg Q8HP PRN IM 07/04/24 00:00 07/05/24 22:48 5 MG Phenylephrine HCl 250 ml @ 30 mls/hr Q8H20M IV 07/07/24 09:30 Fentanyl Citrate 250 ml @ 2.5 mls/hr Q24H IV 07/07/24 09:30 07/15/24 08:51 32.5 MLS/HR Hydrocortisone Sodium Succinate 50 mg Q6HR IV 07/07/24 12:00 07/15/24 12:24 50 MG Meropenem 50 ml @ 17 mls/hr DAILY IV 07/08/24 10:00 07/15/24 10:05 17 MLS/HR Vasopressin 20 units/Sodium Chloride 100 ml @ 9 mls/hr Q11H7M IV 07/07/24 12:30 07/10/24 01:52 6 MLS/HR Pantoprazole Sodium 50 ml @ 10 mls/hr Q5H IV 07/07/24 17:15 07/15/24 10:04 10 MLS/HR Lorazepam 1 mg Q5MINP PRN IV 07/08/24 00:00 Vancomycin HCl 0 ml @ 0 mls/hr UD IV 07/08/24 09:30 Potassium Chloride 100 ml @ 50 mls/hr Q2H IV 07/09/24 14:30 07/09/24 18:29 UNV Diagnostic Test (Pha) 1 strip Q6HR 07/10/24 00:00 07/15/24 12:25 1 STRIP Insulin Human Regular FOLLOW SLIDING SCALE Q6HR SC 07/10/24 00:00 07/15/24 12:25 12 UNITS Dextrose 50 ml UD IV 07/10/24 00:00 Amino Acids 0 ml @ 0 mls/hr PER PHARMACY IV 07/10/24 10:00 Vancomycin HCl 0 ml @ 0 mls/hr UD IV 07/10/24 15:30 Cancel Bumetanide 2.5 mg DAILY IV 07/14/24 10:00 07/15/24 10:03 2.5 MG Sodium Chloride 50 meq/Potassium Chloride 40 meq/ Magnesium Sulfate 10 meq/ Multivitamins 10 ml/Insulin Human Regular 26 units/ Amino Acids/ Dextrose 1,495.26 ml @ 62 mls/hr Q24H8M IV 07/14/24 22:00 07/15/24 21:59 07/14/24 21:36 62 MLS/HR Sucralfate 1 gm QID@0600,1130,1700,2200 PO 07/14/24 22:00 07/15/24 12:23 1 GM Norepinephrine Bitartrate 250 ml @ 3.75 mls/hr Q24H IV 07/15/24 08:45 Lactulose 30 ml Q6HR PO 07/15/24 12:00 07/15/24 12:23 30 ML Fat Emulsion Intravenous 100 ml/Sodium Chloride 40 meq/ Potassium Chloride 60 meq/ Magnesium Sulfate 12 meq/ Multivitamins 10 ml/Insulin Human Regular 28 units/ Amino Acids/ Dextrose 1,653.28 ml @ 69 mls/hr [id number] IV 07/15/24 22:00 07/16/24 21:59 Examination General Appearance: intubated HEENT: anisocoria, bleeding through the mouth Respiratory: left IJ cath right HD cath Clear to auscultation, Normal air movement Cardiovascular: Regular rate, Normal S1, Normal S2, No murmurs, no chest wall tenderness Abdominal: ascities Extremities: No clubbing, No cyanosis, No edema, Normal pulses, Skin: Generalized yellow discoloration of skin, petechial/purpuric lesion upper limbs laboratory and microbiology Laboratory Tests 07/15/24 03:20 Test 07/15/24 03:20 Range/Units Serum Glucose 267 H 74-106 mg/dL Microbiology Date/Time Source Procedure Growth Status 07/07/24 09:58 Trachea Gram Stain - Final Complete 07/07/24 09:58 Respiratory Culture - Final Presumptive Jn albicans Complete 07/01/24 17:21 Voided Urine Urine Culture - Final Enterococcus faecium Complete 07/01/24 08:53 Ascities Fluid Gram Stain - Final Complete 07/01/24 08:53 Ascities Fluid Body Fluid Culture - Final Complete 06/30/24 21:52 Blood Blood Culture - Final NO GROWTH AFTER 5 DAYS OF INCUBATION. Complete Problem List/Assessment/Plan Problem List/Assessment/Plan Neurology #Acute metabolic encephalopathy due to hepatic and uremic encephalopathy #GCS deterioration requiring intubation Intubated. Currently sedated with fentanyl and propofol drip new head ct scan: no acute changes sedation vacation: decrease fentanyl Cardiology #Shock, likely multifactorial septic, hypovolemic Levophed 4 mcg dc a line Pulmonary #Acute hypoxic respiratory failure requiring mechanical ventilation #Vent dependent, intubated Vent settings: PEEP 5, TV 500, RR 24, FiO2 30%.Continue ventilator support, monitor ABGs: respiratory alkalosis: no vent changes for now Hematology #Severe anemia, likely due to GI bleeding #Thrombocytopenia due to liver failure #DIC 6 URBC, 5 FFP, 7 Units of platelets and 1 unit of cryoprecipitates Infectious Disease #Septic shock, likely secondary to UTI and spontaneous bacterial peritonitis #Possible aspiration pneumonia: gram+/gram - Urine culture positive for enterococcus, blood culture no growth x5 days. Sputum culture:positive for jn (colonization): no need of antifungal for now On Meropenem+ vancomycin Continue dual coverage. #SBP Paracentesis: 7.8 L removed 07/12/24 high WBC in ascitic fluid (fat admission). antibiotics ongoing. GI/Hepatology #Liver cirrhosis secondary to alcohol use #Massive ascites #esophageal varices ruled out #Upper GI bleed, unspecified location #ischemic gastritis #necrotic antrum ulcer GI consulted. Octreotide drip, PPI drip, PRBCs transfused. Vitamin K administered. Continue PPI. Trend Hgb. Monitor for rebleeding. DC octeotride NG tube: 150 cc lactulose oral Start feedings ECG: ischemic gastritis + necrotic ulcer in the antrum Renal #CLIFFORD on CKD, likely multifactorial: uremia, hypotension, sepsis #Hyperkalemia #Uremic encephalopathy #Emergency dialysis [facility] initiated HD yesterday 3LT Albumin given Endocrinology #Hypoglycemia TPN Now stable. Monitor glucose q6h. Nutrition #Severe malnutrition TPN Code Status: full code Poor prognosis discussed with sister (POA): today she didnt miner pick the phone, yesterday case was discussed Lines/Support Intubated Central line DC A-line Jordan catheter Durham catheter Prophylaxis and Orders DVT: SCD GI: PPI drip (Protonix) Bowel: Lactulose Case discussed with Dr Interiano Plan discussed with: Patient, Other (rn) My Orders My Orders Orders - AUDRA CRANDALL RESIDENT Procedure Category Date Status Time Cover Wound With Dry NILTON 07/14/24 In Process Dressing 12:[address] 07/14/24 Resulted 16:54 Norepinephrine 8 PHA 07/15/24 In Process Mg/250ml Kit 08:45 Lactulose Oral PHA 07/15/24 In Process 12:00 Dietary Evaluation Review Comments: 1. Suggest Nepro 1.8 @ 50 ml/hr + 1 pckt ProStat daily; begin @ 10 ml/hr, advance SLOWLY by 10 ml Q12 hrs to goal-rate of 50 ml/hr continuously 2. Provide minimal free water flushes of 30 ml Q6 hrs (120 ml total) for tube patency; adjust PRN/per MD discretion 3. Continue to monitor/replete lytes, especially K, Mag, Phos given high refeeding risk; add 100 mg thiamine daily x 7 days 4. Should lytes drop, maintain current rate of EN and replace to WNL prior to advancing rate of EN further TF Provision: TF at goal to provide 1200 ml total volume, 2160 kcal (+100 kcal via Prostat = 2260 kcal), 97 gm pro (+ 15 gm via Prostat = 112 gm), 15 gm fiber, 1272 mg K, 864 mg Phos, 872 ml H20 (meets 100% est. kcal needs, 100% est. pro needs) Expected Outcomes/Goals: Improved nutritional status, improved hemodynamic stability. Food and Nutrition Intake (Sev: <50% est energy req 5days Fluid Accumulation (Severe): Moderate Fluid Retention Protein Calorie Malnutrition: Severe Is there a minimum of two crit: Yes CC Plasma Assessment Blood Product Administration S: [id number] Date of Service: Jul 15, 2024 Billing Provider: ASHLEY INTERIANO MD Common Visit Codes: [id number] CARE 30-74 MIN AUDRA CRANDALL RESIDENT Jul 15, 2024 13:42 ASHLEY INTERIANO MD Jul 15, 2024 22:30
--- NOTE | 2024-07-15 14:29 | DVHPN2 ---
Progress Note - Dictate Date Seen: Jul 15, 2024 Has the PT tested + for MRSA If YES, has PT been informed?: No Medical Necessity Reason Pt with a Central, PICC or Fol: Yes The following are medically ne: Durham Catheter Reason for durham catheter: Strict I&O, Total Immobilization Subjective Patient is still intubated and sedated;Patient getting sedation vacation Critically ill with multisystem involvement. He is still on pressors, minimal vent settings, Receiving supportive care including albumin, blood products, and antibiotics (meropenem and vancomycin). Hemoglobin was stable at 8.3, platelets improved to 25 K Liver enzymes including bilirubin trending down S/P hemodialysis yesterday EGD showed evidence of gastric ischemia with necrosis vital signs Vital Sign Date Time Temp Pulse Resp B/P (MAP) Pulse Ox O2 Delivery O2 Flow Rate FiO2 07/15/24 13:00 96 24 116/58 (77) 97 112/64 (80) 07/15/24 12:58 30 07/15/24 12:00 98.2 98.2 07/15/24 12:00 Mechanical Ventilator+ Total Intake and Output 07/14/24 07/14/24 07/15/24 15:00 23:00 07:00 Intake Total 1336.00 ml 884.25 ml 992.90 ml Output Total 4050 ml 600 ml Balance 1336.00 ml -3165.75 ml 392.90 ml medications Current Medications Medications Dose Ordered Sig/Erik Route Start Time Stop Time Status Last Admin Dose Admin Ondansetron HCl 4 mg Q4HP PRN IV 07/01/24 02:45 Midodrine 10 mg TID@0600,1200,1800 PO 07/01/24 06:00 07/15/24 12:24 10 MG Thiamine HCl 100 mg DAILY PO 07/03/24 10:00 07/15/24 10:04 100 MG Haloperidol Lactate 5 mg Q8HP PRN IM 07/04/24 00:00 07/05/24 22:48 5 MG Phenylephrine HCl 250 ml @ 30 mls/hr Q8H20M IV 07/07/24 09:30 Fentanyl Citrate 250 ml @ 2.5 mls/hr Q24H IV 07/07/24 09:30 07/15/24 08:51 32.5 MLS/HR Hydrocortisone Sodium Succinate 50 mg Q6HR IV 07/07/24 12:00 07/15/24 12:24 50 MG Meropenem 50 ml @ 17 mls/hr DAILY IV 07/08/24 10:00 07/15/24 10:05 17 MLS/HR Vasopressin 20 units/Sodium Chloride 100 ml @ 9 mls/hr Q11H7M IV 07/07/24 12:30 07/10/24 01:52 6 MLS/HR Pantoprazole Sodium 50 ml @ 10 mls/hr Q5H IV 07/07/24 17:15 07/15/24 10:04 10 MLS/HR Lorazepam 1 mg Q5MINP PRN IV 07/08/24 00:00 Vancomycin HCl 0 ml @ 0 mls/hr UD IV 07/08/24 09:30 Potassium Chloride 100 ml @ 50 mls/hr Q2H IV 07/09/24 14:30 07/09/24 18:29 UNV Diagnostic Test (Pha) 1 strip Q6HR 07/10/24 00:00 07/15/24 12:25 1 STRIP Insulin Human Regular FOLLOW SLIDING SCALE Q6HR SC 07/10/24 00:00 07/15/24 12:25 12 UNITS Dextrose 50 ml UD IV 07/10/24 00:00 Amino Acids 0 ml @ 0 mls/hr PER PHARMACY IV 07/10/24 10:00 Vancomycin HCl 0 ml @ 0 mls/hr UD IV 07/10/24 15:30 Cancel Bumetanide 2.5 mg DAILY IV 07/14/24 10:00 07/15/24 10:03 2.5 MG Sodium Chloride 50 meq/Potassium Chloride 40 meq/ Magnesium Sulfate 10 meq/ Multivitamins 10 ml/Insulin Human Regular 26 units/ Amino Acids/ Dextrose 1,495.26 ml @ 62 mls/hr Q24H8M IV 07/14/24 22:00 07/15/24 21:59 07/14/24 21:36 62 MLS/HR Sucralfate 1 gm QID@0600,1130,1700,2200 PO 07/14/24 22:00 07/15/24 12:23 1 GM Norepinephrine Bitartrate 250 ml @ 3.75 mls/hr Q24H IV 07/15/24 08:45 Lactulose 30 ml Q6HR PO 07/15/24 12:00 07/15/24 12:23 30 ML Fat Emulsion Intravenous 100 ml/Sodium Chloride 40 meq/ Potassium Chloride 60 meq/ Magnesium Sulfate 12 meq/ Multivitamins 10 ml/Insulin Human Regular 28 units/ Amino Acids/ Dextrose 1,653.28 ml @ 68 mls/hr [id number] IV 07/15/24 22:00 07/16/24 21:59 objective General: intubated sedated; scleral icterus Chest: lung thompson clear to auscultation Heart: RRR, no murmur Abdomen: [id number]-[id number]-distended, no tenderness to palpation, +BS Skin: +jaundice, multiple bruises laboratory and microbiology Laboratory Tests 07/15/24 03:20 Test 07/15/24 03:20 Range/Units Serum Glucose 267 H 74-106 mg/dL Problems(with codes): (1) Icterus (2) Hypotension (3) Acute liver failure (4) GI bleed (5) Alcohol intoxication (6) Hypokalemia (7) Acute anxiety (8) Atypical chest pain (9) Hepatorenal failure (10) Altered mental status (11) Hepatic encephalopathy Prognosis PLAN: 1. Await for biopsy result 2. Will place pt on Protonix 40 mg bid IV after the current Protonix drip is completed 3. Taper off the IV octreotide drip 4. Continue supportive care with transfusions correcting coagulopathy and giving platelets and try to keep his perfusion adequate 5. Carafate suspension 1 g via NG tube 6. Consider starting enteral tube feedings in 24-48 hours starting with trickle feedings 7. I will not be on-call for the rest of the week, if any further GI intervention is required please contact [facility] on-call Dietary Evaluation Review Comments: 1. Suggest Nepro 1.8 @ 50 ml/hr + 1 pckt ProStat daily; begin @ 10 ml/hr, advance SLOWLY by 10 ml Q12 hrs to goal-rate of 50 ml/hr continuously 2. Provide minimal free water flushes of 30 ml Q6 hrs (120 ml total) for tube patency; adjust PRN/per MD discretion 3. Continue to monitor/replete lytes, especially K, Mag, Phos given high refeeding risk; add 100 mg thiamine daily x 7 days 4. Should lytes drop, maintain current rate of EN and replace to WNL prior to advancing rate of EN further TF Provision: TF at goal to provide 1200 ml total volume, 2160 kcal (+100 kcal via Prostat = 2260 kcal), 97 gm pro (+ 15 gm via Prostat = 112 gm), 15 gm fiber, 1272 mg K, 864 mg Phos, 872 ml H20 (meets 100% est. kcal needs, 100% est. pro needs) Expected Outcomes/Goals: Improved nutritional status, improved hemodynamic stability. Food and Nutrition Intake (Sev: <50% est energy req 5days Fluid Accumulation (Severe): Moderate Fluid Retention Protein Calorie Malnutrition: Severe Is there a minimum of two crit: Yes Plan discussed with: Other (Dr Interiano) CC Plasma Assessment Blood Product Administration S: [id number] SHANTAL BILLS MD Jul 15, 2024 14:29
--- NOTE | 2024-07-15 17:41 | DVHPN2 ---
Progress Note Date Seen: Jul 15, 2024 Resident Creating Document: ADITHYA PEREZ RESIDENT Has the PT tested + for MRSA If YES, has PT been informed?: No Medical Necessity Reason Pt with a Central, PICC or Fol: Yes The following are medically ne: Durham Catheter Reason for durham catheter: Strict I&O, Total Immobilization Subjective Review of Systems Patient was examined at bedside, he is under mechanical ventilation on minimal vent settings, he is on vasopressors norepinephrine. Yesterday patient underwent hemodialysis today's I&Os showed negative balance more than 1 L. Patient will undergo hemodialysis today. Electrolytes improving. Monitor closely Objective vital signs Vital Sign Date Time Temp Pulse Resp B/P (MAP) Pulse Ox O2 Delivery O2 Flow Rate FiO2 07/15/24 17:15 76/47 07/15/24 16:15 104 24 98 07/15/24 16:00 Mechanical Ventilator+ 30 30 07/15/24 16:00 98.2 98.2 Total Intake and Output 07/14/24 07/14/24 07/15/24 15:00 23:00 07:00 Intake Total 1336.00 ml 884.25 ml 992.90 ml Output Total 4050 ml 600 ml Balance 1336.00 ml -3165.75 ml 392.90 ml medications Current Medications Medications Dose Ordered Sig/Erik Route Start Time Stop Time Status Last Admin Dose Admin Ondansetron HCl 4 mg Q4HP PRN IV 07/01/24 02:45 Midodrine 10 mg TID@0600,1200,1800 PO 07/01/24 06:00 07/15/24 12:24 10 MG Thiamine HCl 100 mg DAILY PO 07/03/24 10:00 07/15/24 10:04 100 MG Haloperidol Lactate 5 mg Q8HP PRN IM 07/04/24 00:00 07/05/24 22:48 5 MG Phenylephrine HCl 250 ml @ 30 mls/hr Q8H20M IV 07/07/24 09:30 Fentanyl Citrate 250 ml @ 2.5 mls/hr Q24H IV 07/07/24 09:30 07/15/24 16:11 30 MLS/HR Hydrocortisone Sodium Succinate 50 mg Q6HR IV 07/07/24 12:00 07/15/24 12:24 50 MG Meropenem 50 ml @ 17 mls/hr DAILY IV 07/08/24 10:00 07/15/24 10:05 17 MLS/HR Vasopressin 20 units/Sodium Chloride 100 ml @ 9 mls/hr Q11H7M IV 07/07/24 12:30 07/10/24 01:52 6 MLS/HR Pantoprazole Sodium 50 ml @ 10 mls/hr Q5H IV 07/07/24 17:15 07/15/24 14:55 10 MLS/HR Lorazepam 1 mg Q5MINP PRN IV 07/08/24 00:00 Vancomycin HCl 0 ml @ 0 mls/hr UD IV 07/08/24 09:30 Potassium Chloride 100 ml @ 50 mls/hr Q2H IV 07/09/24 14:30 07/09/24 18:29 UNV Diagnostic Test (Pha) 1 strip Q6HR 07/10/24 00:00 07/15/24 12:25 1 STRIP Insulin Human Regular FOLLOW SLIDING SCALE Q6HR SC 07/10/24 00:00 07/15/24 12:25 12 UNITS Dextrose 50 ml UD IV 07/10/24 00:00 Amino Acids 0 ml @ 0 mls/hr PER PHARMACY IV 07/10/24 10:00 Vancomycin HCl 0 ml @ 0 mls/hr UD IV 07/10/24 15:30 Cancel Bumetanide 2.5 mg DAILY IV 07/14/24 10:00 07/15/24 10:03 2.5 MG Sodium Chloride 50 meq/Potassium Chloride 40 meq/ Magnesium Sulfate 10 meq/ Multivitamins 10 ml/Insulin Human Regular 26 units/ Amino Acids/ Dextrose 1,495.26 ml @ 62 mls/hr Q24H8M IV 07/14/24 22:00 07/15/24 21:59 07/14/24 21:36 62 MLS/HR Sucralfate 1 gm QID@0600,1130,1700,2200 PO 07/14/24 22:00 07/15/24 17:05 1 GM Norepinephrine Bitartrate 250 ml @ 3.75 mls/hr Q24H IV 07/15/24 08:45 07/15/24 17:00 11.25 MLS/HR Lactulose 30 ml Q6HR PO 07/15/24 12:00 07/15/24 12:23 30 ML Fat Emulsion Intravenous 100 ml/Sodium Chloride 40 meq/ Potassium Chloride 60 meq/ Magnesium Sulfate 12 meq/ Multivitamins 10 ml/Insulin Human Regular 28 units/ Amino Acids/ Dextrose 1,653.28 ml @ 68 mls/hr [id number] IV 07/15/24 22:00 07/16/24 21:59 Albumin Human 100 ml @ 100 mls/hr STAT IV 07/15/24 16:00 07/17/24 16:59 Examination: GENERAL:Abnormal, NECK:Normal, CVS:Normal, ABDOMEN:Normal, SKIN:Abnormal, NEURO:Abnormal, :Abnormal laboratory and microbiology Laboratory Tests 07/15/24 03:20 Test 07/15/24 03:20 Range/Units Serum Glucose 267 H 74-106 mg/dL Microbiology Date/Time Source Procedure Growth Status 07/07/24 09:58 Trachea Gram Stain - Final Complete 07/07/24 09:58 Respiratory Culture - Final Presumptive Julissa albicans Complete 07/01/24 17:21 Voided Urine Urine Culture - Final Enterococcus faecium Complete 07/01/24 08:53 Ascities Fluid Gram Stain - Final Complete 07/01/24 08:53 Ascities Fluid Body Fluid Culture - Final Complete 06/30/24 21:52 Blood Blood Culture - Final NO GROWTH AFTER 5 DAYS OF INCUBATION. Complete Problem List/Assessment/Plan Problem List/Assessment/Plan Assessment: # Severe acute kidney injury on CKD likely ATN due to septic shock #GI bleed #CKD stage [place] #Anasarca # Septic shock due to UTI secondary to enterococcus faecium: #Spontaneous bacterial peritonitis secondary to liver failure due to cirrhosis #Possible Hepatic encephalopathy and cirrhosis (alcohol-related): #GI bleed likely upper GI source in cirrhotic patien #Electrolyte imbalances Plan: - On hemodialysis, today - volume status: patient is clinically fluid overloaded, recommend fluid input restriction as much as possible - strict I&Os, negative balance more than 1 L. - Avoid nephrotoxins. - EPOGEN 10,000 units three times a week. - monitor platelets - Continue meropenem and vancomycin IV with renal dosing. - GI on board case discussed with code status: full code Plan discussed with: Other () Dietary Evaluation Review Comments: 1. Suggest Nepro 1.8 @ 50 ml/hr + 1 pckt ProStat daily; begin @ 10 ml/hr, advance SLOWLY by 10 ml Q12 hrs to goal-rate of 50 ml/hr continuously 2. Provide minimal free water flushes of 30 ml Q6 hrs (120 ml total) for tube patency; adjust PRN/per MD discretion 3. Continue to monitor/replete lytes, especially K, Mag, Phos given high refeeding risk; add 100 mg thiamine daily x 7 days 4. Should lytes drop, maintain current rate of EN and replace to WNL prior to advancing rate of EN further TF Provision: TF at goal to provide 1200 ml total volume, 2160 kcal (+100 kcal via Prostat = 2260 kcal), 97 gm pro (+ 15 gm via Prostat = 112 gm), 15 gm fiber, 1272 mg K, 864 mg Phos, 872 ml H20 (meets 100% est. kcal needs, 100% est. pro needs) Expected Outcomes/Goals: Improved nutritional status, improved hemodynamic stability. Food and Nutrition Intake (Sev: <50% est energy req 5days Fluid Accumulation (Severe): Moderate Fluid Retention Protein Calorie Malnutrition: Severe Is there a minimum of two crit: Yes CC Plasma Assessment Blood Product Administration S: [id number] ADITHYA PEREZ RESIDENT Jul 15, 2024 17:41
[2024-07-15] MEDS: ALBUMIN 25% 100 ML IV SCH (18:38)
[2024-07-15] MEDS: VANCOMYCIN 500mg/100mL 100 ML IV ONE (18:40)
--- NOTE | 2024-07-15 21:27 | DVHPN2 ---
Progress Note - Dictate Date Seen: Jul 15, 2024 Has the PT tested + for MRSA If YES, has PT been informed?: No Medical Necessity Reason Pt with a Central, PICC or Fol: Yes The following are medically ne: Durham Catheter Reason for durham catheter: Strict I&O, Total Immobilization Subjective Patient seen and examined at bedside. Sedated, intubated on mechanical ventilator. Overnight events reviewed. vital signs Vital Sign Date Time Temp Pulse Resp B/P (MAP) Pulse Ox O2 Delivery O2 Flow Rate FiO2 07/15/24 21:15 86 24 158/59 (92) 98 07/15/24 20:24 30 07/15/24 20:00 Mechanical Ventilator+ 07/15/24 20:00 97.8 97.8 Total Intake and Output 07/14/24 07/14/24 07/15/24 15:00 23:00 07:00 Intake Total 1336.00 ml 884.25 ml 992.90 ml Output Total 4050 ml 600 ml Balance 1336.00 ml -3165.75 ml 392.90 ml medications Current Medications Medications Dose Ordered Sig/Erik Route Start Time Stop Time Status Last Admin Dose Admin Ondansetron HCl 4 mg Q4HP PRN IV 07/01/24 02:45 Midodrine 10 mg TID@0600,1200,1800 PO 07/01/24 06:00 07/15/24 17:53 10 MG Thiamine HCl 100 mg DAILY PO 07/03/24 10:00 07/15/24 10:04 100 MG Haloperidol Lactate 5 mg Q8HP PRN IM 07/04/24 00:00 07/05/24 22:48 5 MG Phenylephrine HCl 250 ml @ 30 mls/hr Q8H20M IV 07/07/24 09:30 Fentanyl Citrate 250 ml @ 2.5 mls/hr Q24H IV 07/07/24 09:30 07/15/24 16:11 30 MLS/HR Hydrocortisone Sodium Succinate 50 mg Q6HR IV 07/07/24 12:00 07/15/24 17:53 50 MG Meropenem 50 ml @ 17 mls/hr DAILY IV 07/08/24 10:00 07/15/24 10:05 17 MLS/HR Vasopressin 20 units/Sodium Chloride 100 ml @ 9 mls/hr Q11H7M IV 07/07/24 12:30 07/10/24 01:52 6 MLS/HR Pantoprazole Sodium 50 ml @ 10 mls/hr Q5H IV 07/07/24 17:15 07/15/24 20:01 10 MLS/HR Lorazepam 1 mg Q5MINP PRN IV 07/08/24 00:00 Vancomycin HCl 0 ml @ 0 mls/hr UD IV 07/08/24 09:30 Potassium Chloride 100 ml @ 50 mls/hr Q2H IV 07/09/24 14:30 07/09/24 18:29 UNV Diagnostic Test (Pha) 1 strip Q6HR 07/10/24 00:00 07/15/24 17:53 1 STRIP Insulin Human Regular FOLLOW SLIDING SCALE Q6HR SC 07/10/24 00:00 07/15/24 18:00 4 UNITS Dextrose 50 ml UD IV 07/10/24 00:00 Amino Acids 0 ml @ 0 mls/hr PER PHARMACY IV 07/10/24 10:00 Vancomycin HCl 0 ml @ 0 mls/hr UD IV 07/10/24 15:30 Cancel Bumetanide 2.5 mg DAILY IV 07/14/24 10:00 07/15/24 10:03 2.5 MG Sodium Chloride 50 meq/Potassium Chloride 40 meq/ Magnesium Sulfate 10 meq/ Multivitamins 10 ml/Insulin Human Regular 26 units/ Amino Acids/ Dextrose 1,495.26 ml @ 62 mls/hr Q24H8M IV 07/14/24 22:00 07/15/24 21:59 07/14/24 21:36 62 MLS/HR Sucralfate 1 gm QID@0600,1130,1700,2200 PO 07/14/24 22:00 07/15/24 17:05 1 GM Norepinephrine Bitartrate 250 ml @ 3.75 mls/hr Q24H IV 07/15/24 08:45 07/15/24 17:00 11.25 MLS/HR Lactulose 30 ml Q6HR PO 07/15/24 12:00 07/15/24 17:53 30 ML Fat Emulsion Intravenous 100 ml/Sodium Chloride 40 meq/ Potassium Chloride 60 meq/ Magnesium Sulfate 12 meq/ Multivitamins 10 ml/Insulin Human Regular 28 units/ Amino Acids/ Dextrose 1,653.28 ml @ 68 mls/hr [id number] IV 07/15/24 22:00 07/16/24 21:59 Albumin Human 100 ml @ 100 mls/hr STAT IV 07/15/24 16:00 07/17/24 16:59 objective Gen.: Patient lying in bed in medical ICU. Sedated, intubated on mechanical ventilator. Head: Normocephalic, atraumatic. Eyes: PERRLA. Ears: Normal external anatomy. Throat: Endotracheal tube and orogastric tube in place. Neck: Supple, trachea midline. Chest: Transmitted breath sounds bilaterally. Decreased air entry bilaterally. No wheezing. Bibasilar crackles. Cardiovascular: Positive S1, positive S2. Regular rate and rhythm. Abdomen: Positive bowel sounds in all 4 quadrants. Soft, nontender, nondistended. : Durham in place. Normal external genitalia. Rectal: Deferred. Skin: Warm, dry. Intact. Extremities: 2+ radial pulses bilaterally. No lower extremity edema. Neuro: Sedated laboratory and microbiology Laboratory Tests 07/15/24 03:20 Test 07/15/24 03:20 Range/Units Serum Glucose 267 H 74-106 mg/dL Assessment/Plan Impression: Acute hypercarbic respiratory failure On mechanical ventilator Acute metabolic encephalopathy Shock Liver cirrhosis Hx of ETOH abuse Thrombocytopenia Events: Remains on vent support On AC mode; RR 20 -->24, VT 450 -->500, PEEP 5, FiO2 30% Sedated on Propofol/Fentanyl ABG reviewed, compensated Pressors for hemodynamic support Levophed 6 mcg/min Titrate to keep mean arterial pressure greater than 65 mmHg. Continue antibiotics Continue IV steroids Continue Protonix drip TPN for nutritional support Monitor hemoglobin Monitor platelets d/t thrombocytopenia - trending up at [address] Start lactulose EGD revealed extensive ulceration of gastric body and antrum with necrosis, hiatal hernia, erosive esophagitis. Awaiting biopsy results. GI recs appreciated S/p paracentesis on 07/13/24 Diurese w/ Bumex drip HD per Nephrology - plan for HD today Monitor renal function Monitor electrolytes. Supplement as necessary. Monitor ins and outs. Accu-Cheks, ISS. Sedation vacation. CXR image and report reviewed. Labs and imaging reviewed. Rest of plan as noted below. Plan: s/p intubation on mechanical ventilator. On AC mode; RR 24, VT 500, PEEP 5, FiO2 30% Titrate FIO2 to keep O2 saturation above 90%. VAP bundle. Daily ABG and CXR while intubated Sedated for vent synchrony Continue antibiotics. Protonix drip GI recommendations appreciated Pressors as necessary for hemodynamic support Titrate to keep mean arterial pressure greater than 65 mmHg. Accu-Cheks, ISS PRN. Monitor renal function Monitor electrolytes. Supplement as necessary. Monitor ins and outs. Maintain euvolemia. GI prophylaxis. DVT prophylaxis. Prognosis: Poor given patient's multiple co-morbidities. Condition: Critical Rest of plan per hospitalist and other consultants. A total of 35 minutes of critical care time was spent reviewing the patient record, examining the patient, making a diagnostic and therapeutic plan, discussing this plan with the medical personnel, following up on diagnostic studies and following the patient for clinical stability excluding any and all procedures. At least 50% of this time was spent in direct, [id number] contact. Thank you Dr. Ovalle for allowing me to participate in this patient's care. Further recommendations will depend on the patient's clinical course. Please do not hesitate to contact me if you have any questions or concerns. This medical document was created using an electronic medical record system with [employer] dictation system. Although these documentations are being carefully reviewed, there may still be some phonetic and typographical changes. The errors are purely typographical, due to imperfection on the software program, and do not reflect any compromise in the patient's medical care. Dietary Evaluation Review Comments: 1. Suggest Nepro 1.8 @ 50 ml/hr + 1 pckt ProStat daily; begin @ 10 ml/hr, advance SLOWLY by 10 ml Q12 hrs to goal-rate of 50 ml/hr continuously 2. Provide minimal free water flushes of 30 ml Q6 hrs (120 ml total) for tube patency; adjust PRN/per MD discretion 3. Continue to monitor/replete lytes, especially K, Mag, Phos given high refeeding risk; add 100 mg thiamine daily x 7 days 4. Should lytes drop, maintain current rate of EN and replace to WNL prior to advancing rate of EN further TF Provision: TF at goal to provide 1200 ml total volume, 2160 kcal (+100 kcal via Prostat = 2260 kcal), 97 gm pro (+ 15 gm via Prostat = 112 gm), 15 gm fiber, 1272 mg K, 864 mg Phos, 872 ml H20 (meets 100% est. kcal needs, 100% est. pro needs) Expected Outcomes/Goals: Improved nutritional status, improved hemodynamic stability. Food and Nutrition Intake (Sev: <50% est energy req 5days Fluid Accumulation (Severe): Moderate Fluid Retention Protein Calorie Malnutrition: Severe Is there a minimum of two crit: Yes Plan discussed with: Other (CLIVE Vogel) Critical Care Time(min): 35 CC Plasma Assessment Blood Product Administration S: [id number] JOAQUÍN VILLAFANA MD Jul 15, 2024 21:27
[2024-07-15] MEDS: TPN PER PHARMACY IV NR (21:33)
[2024-07-16] VITALS (102 sets, daily range): BP systolic 88–172; BP diastolic 32–89; PULSE 84–116; RESP 17–26; TEMP 97.5–98.7; O2SAT 94–100
[2024-07-16 04:20] LABS: Hemoglobin 7.9 g/dL (13.5-17.5); Red Cell Distribution Width 16.4 % (11.8-14.3)
[2024-07-16 04:26] LABS: Hematocrit 22.9 % (41.0-53.0); Mean Corpuscular Hemoglobin 31.3 pg (28.0-32.0); Mean Corpuscular Hgb Conc. 34.4 g/dL (32.0-36.0); Mean Corpuscular Volume 90.9 fL (80.0-100.0); Platelet Count (auto) 23 10^3/uL (140-450); Red Blood Cells 2.52 10^6/uL (4.5-5.90); White Blood Cell 11.1 10^3/uL (4.4-10.8)
[2024-07-16 04:33] LABS: Alkaline Phosphatase 84 U/L (46-116); Anion Gap 12 (5-15); Carbon Dioxide 27 mmol/L (20-31); Chloride 102 mmol/L (98-107); Magnesium 2.2 mg/dL (1.6-2.6); Potassium 3.7 mmol/L (3.5-5.1); Sodium 141 mmol/L (136-145)
[2024-07-16 04:37] LABS: BUN/Creatinine Ratio 22.5 (10.0-20.0)
[2024-07-16 05:02] LABS: Alanine Aminotransferase 41 U/L (7-40); Aspartate Aminotransferase 45 U/L (13-40); Bilirubin, Total 20.9 mg/dL (0.2-1.0); Blood Urea Nitrogen 70 mg/dL (9-23); Calcium 10.5 mg/dL (8.7-10.4); Glucose 234 mg/dL (74-106); Total Protein 5.8 g/dL (5.7-8.2); Triglycerides 74 mg/dL (< 150)
[2024-07-16 05:14] LABS: Basophils % (manual) 0 (0.0-2.0); Blast Cells 0; Metamyelocytes % 0; Myelocytes % 0; Promyelocytes % 0; Reactive Lymphocytes 0
--- NOTE | 2024-07-16 05:58 | DVH ---
EXAM: XR Chest, 1 View CLINICAL INDICATION: VENTED TECHNIQUE: Frontal view of the chest. COMPARISON: XY CHEST PORTABLE on DOS: 07/15/24, XY CHEST PORTABLE on DOS: 07/14/24, XY CHEST PORTABLE on DOS: 07/13/24, XY CHEST PORTABLE on DOS: 07/12/24, XY CHEST PORTABLE on DOS: 07/11/24 FINDINGS: LUNGS AND PLEURAL SPACES: Bibasilar atelectasis. No pneumothorax. HEART: Unremarkable. No cardiomegaly. MEDIASTINUM: Unremarkable. Normal mediastinal contour. BONES/JOINTS: Unremarkable. No acute fracture. TUBES, LINES AND DEVICES: Right internal jugular central venous catheter tip in the superior vena c ladan. The endotracheal tube (ETT) is in satisfactory position. Left internal jugular central venous catheter tip in the superior vena cava. OTHER FINDINGS: . IMPRESSION: Bibasilar atelectasis.
[2024-07-16 06:15] LABS: Band Neutrophils % (manual) 4; Eosinophils % (manual) 1 (0-7); Lymphocytes % (manual) 17 (10.0-50.0); Monocytes % (manual) 12 (0-12); Platelet Estimate Markedly Decreased
[2024-07-16 07:30] LABS: Base Excess 1.2 mmol/L (-2.0-3.0)
--- NOTE | 2024-07-16 08:35 | DVHPNRES ---
Progress Note Date Seen: Jul 16, 2024 Resident Creating Document: AUDRA CRANDALL RESIDENT Has the PT tested + for MRSA If YES, has PT been informed?: No Medical Necessity Reason Pt with a Central, PICC or Fol: Yes The following are medically ne: Durham Catheter Reason for durham catheter: Strict I&O, Total Immobilization Subjective Review of Systems A 53-year-old male with past medical history of liver cirrhosis (due to alcohol use disorder)and CKD brought to the hospital due to altered mental status. Family were called, but the didnt answer, all the info was taken to the medical records Per EMS reports patient was taken from home and per family member he has been altered since 1 week which has progressively worsened. He was admitted on 10/31/2020 and DVT H due to GI bleeding, EGD was performed, showed gastritis with no active bleeding. PMHx: Liver cirrhosis due to alcohol use disorder, CKD Social history: Has history of alcohol use disorder 07/01/2024: paracentesis done 7LT, multiple wbc in the ascitic fluid, labile BPs, midodrine and octeotride started, zosyn and linezolid due to sepsis and possible SBP, start levophed if MAP below 60, fluids were given, protonix BID 07/02/2024: renal function is declining, hb is stable, FOB neg, protonix drip started, bumex drip started 07/06/2024: urine culture positive for enterococcus, patient is on zosyn and linezolid, hyperkalemia 5.8 07/07/2024: At around 9 a.m., patient was found gasping for air with MAP of 53. Rapid response was called. Mental status deteriorated (GCS drop), requiring intubation. Central line and Jordan catheter were placed. Started on vasopressors: Levophed up to 30 mcg/min and Vasopressin 0.04 U/min. Emergent dialysis was initiated due to uremia and hyperkalemia (K 6.3, later improved to 4.1). ABG showed compensated respiratory status. Patient was found to be hypoglycemic (glucose 16) during event. He is now sedated on fentanyl drip. Labs showed Hgb 6.6likely due to GI bleed; received blood products, Vitamin K, and PPI drip. Prognosis remains poor, and case was re-discussed with family; full code until now 07/08/2024: yesterday HD filtration only, platelets trending down, Dc linezolid, start vancomycin, start low dose propofol, levophed off, still on vasopressin, , GI ok with NG tube, minimal vent settings (fio2 40%) 07/09/2024: 1 apheresis and 1 rbc given, still bloody secretions from mouth, albumin and bumex given, clinimix started by GI, min vent settings, still on vasopressin, octreotide and protonix drip, HD today 07/13/2024: Pt is on TPN, so far in this admission: 6 URBC, 4 FFP, 5 Units of platelets and 1 unit of cryoprecipitates given, dialysis yesterday 2LT, new paracentesis on 07/12/2024 7.8 Lt, jn is growing in the sputum (colonization), hb 8.2 plat [id number] ABG: mild respiratory acidosis, levophed 4 mcg, protonix and octreotide drip, vancomycin and meropenem, no fevers, minimal vent settings 07/14/2024: hb 8,2 plat 22, ABG respiratory acidosis pH 7.27 pCO2 56.2 bicarb 25, tidal volume was increased 500, possible scope today, frozen plasma and platelets ordered, right now patient is getting dialysis, Levophed during the night 2 mcg, bleeding through the G-tube 350 cc, Durham 200cc urine, no fevers, head ct scan will be ordered after scope 07/15/2024: hb 8.3 plat 25 ABG respiratory alkalosis RR 24 TV 500, scope yesterday:antrum with necrosis and overlying eschar most prominent in the antrum causing oozing and pylorus, dialysis yesterday 3LT out, levophed 4 mcg, output in the gtube 150cc, normal head ct scan 07/16/2024: hb 7.9 plat [id number] ABG mild respiratory acidosis RR 24 TV 500, not able to go down on sedation today, dialysis yesterday and today 3 LT, levophed off pm, output g tube 100 cc, dc durham, start tube feedings, discussion with the sister about possible tracheostomy and peg tube, she agreed on both, she is coming next week Objective vital signs Vital Sign Date Time Temp Pulse Resp B/P (MAP) Pulse Ox O2 Delivery O2 Flow Rate FiO2 07/16/24 08:30 99 24 111/60 (88) 23 30 07/16/24 06:00 Mechanical Ventilator+ 07/16/24 04:00 98.7 98.7 Total Intake and Output 07/15/24 07/15/24 07/16/24 15:00 23:00 07:00 Intake Total 980.90 ml 867.00 ml 350.00 ml Output Total 3470 ml 345 ml Balance 980.90 ml -2603.00 ml 5.00 ml medications Current Medications Medications Dose Ordered Sig/Erik Route Start Time Stop Time Status Last Admin Dose Admin Ondansetron HCl 4 mg Q4HP PRN IV 07/01/24 02:45 Midodrine 10 mg TID@0600,1200,1800 PO 07/01/24 06:00 07/16/24 05:39 10 MG Thiamine HCl 100 mg DAILY PO 07/03/24 10:00 07/15/24 10:04 100 MG Haloperidol Lactate 5 mg Q8HP PRN IM 07/04/24 00:00 07/05/24 22:48 5 MG Phenylephrine HCl 250 ml @ 30 mls/hr Q8H20M IV 07/07/24 09:30 Fentanyl Citrate 250 ml @ 2.5 mls/hr Q24H IV 07/07/24 09:30 07/16/24 00:58 25 MLS/HR Hydrocortisone Sodium Succinate 50 mg Q6HR IV 07/07/24 12:00 07/16/24 05:38 50 MG Meropenem 50 ml @ 17 mls/hr DAILY IV 07/08/24 10:00 07/15/24 10:05 17 MLS/HR Vasopressin 20 units/Sodium Chloride 100 ml @ 9 mls/hr Q11H7M IV 07/07/24 12:30 07/10/24 01:52 6 MLS/HR Pantoprazole Sodium 50 ml @ 10 mls/hr Q5H IV 07/07/24 17:15 07/16/24 06:18 10 MLS/HR Lorazepam 1 mg Q5MINP PRN IV 07/08/24 00:00 Vancomycin HCl 0 ml @ 0 mls/hr UD IV 07/08/24 09:30 Potassium Chloride 100 ml @ 50 mls/hr Q2H IV 07/09/24 14:30 07/09/24 18:29 UNV Diagnostic Test (Pha) 1 strip Q6HR 07/10/24 00:00 07/16/24 05:45 1 STRIP Insulin Human Regular FOLLOW SLIDING SCALE Q6HR SC 07/10/24 00:00 07/16/24 05:45 8 UNITS Dextrose 50 ml UD IV 07/10/24 00:00 Amino Acids 0 ml @ 0 mls/hr PER PHARMACY IV 07/10/24 10:00 Vancomycin HCl 0 ml @ 0 mls/hr UD IV 07/10/24 15:30 Cancel Bumetanide 2.5 mg DAILY IV 07/14/24 10:00 07/15/24 10:03 2.5 MG Sucralfate 1 gm QID@0600,1130,1700,2200 PO 07/14/24 22:00 07/16/24 05:39 1 GM Norepinephrine Bitartrate 250 ml @ 3.75 mls/hr Q24H IV 07/15/24 08:45 07/15/24 17:00 11.25 MLS/HR Lactulose 30 ml Q6HR PO 07/15/24 12:00 07/16/24 05:38 30 ML Fat Emulsion Intravenous 100 ml/Sodium Chloride 40 meq/ Potassium Chloride 60 meq/ Magnesium Sulfate 12 meq/ Multivitamins 10 ml/Insulin Human Regular 28 units/ Amino Acids/ Dextrose 1,653.28 ml @ 68 mls/hr [id number] IV 07/15/24 22:00 07/16/24 21:59 07/15/24 21:33 68 MLS/HR Albumin Human 100 ml @ 100 mls/hr STAT IV 07/15/24 16:00 07/17/24 16:59 Examination General Appearance: intubated HEENT: anisocoria, bleeding through the mouth Respiratory: left IJ cath right HD cath Clear to auscultation, Normal air movement Cardiovascular: Regular rate, Normal S1, Normal S2, No murmurs, no chest wall tenderness Abdominal: ascities Extremities: No clubbing, No cyanosis, No edema, Normal pulses, Skin: Generalized yellow discoloration of skin, petechial/purpuric lesion upper limbs laboratory and microbiology Laboratory Tests 07/16/24 03:22 Test 07/16/24 03:22 Range/Units Serum Glucose 234 H 74-106 mg/dL Microbiology Date/Time Source Procedure Growth Status 07/07/24 09:58 Trachea Gram Stain - Final Complete 07/07/24 09:58 Respiratory Culture - Final Presumptive Jn albicans Complete 07/01/24 17:21 Voided Urine Urine Culture - Final Enterococcus faecium Complete 07/01/24 08:53 Ascities Fluid Gram Stain - Final Complete 07/01/24 08:53 Ascities Fluid Body Fluid Culture - Final Complete 06/30/24 21:52 Blood Blood Culture - Final NO GROWTH AFTER 5 DAYS OF INCUBATION. Complete Problem List/Assessment/Plan Problem List/Assessment/Plan Neurology #Acute metabolic encephalopathy due to hepatic and uremic encephalopathy #GCS deterioration requiring intubation Intubated. Currently sedated with fentanyl and propofol drip new head ct scan: no acute changes fentanyl 250 mcg/h Cardiology #Shock, likely multifactorial septic, hypovolemic Levophed off pm dc a line Pulmonary #Acute hypoxic respiratory failure requiring mechanical ventilation #Vent dependent, intubated Vent settings: PEEP 5, TV 500, RR 24, FiO2 30%.Continue ventilator support, monitor ABGs: respiratory acidosis: no vent changes for now Hematology #Severe anemia, likely due to GI bleeding #Thrombocytopenia due to liver failure #DIC 6 URBC, 5 FFP, 7 Units of platelets and 1 unit of cryoprecipitates Infectious Disease #Septic shock, likely secondary to UTI and spontaneous bacterial peritonitis #Possible aspiration pneumonia: gram+/gram - Urine culture positive for enterococcus, blood culture no growth x5 days. Sputum culture:positive for jn (colonization): no need of antifungal for now On Meropenem+ vancomycin Continue dual coverage. #SBP Paracentesis: 7.8 L removed 07/12/24 high WBC in ascitic fluid (fat admission). antibiotics ongoing. GI/Hepatology #Liver cirrhosis secondary to alcohol use #Massive ascites #esophageal varices ruled out #Upper GI bleed, unspecified location #ischemic gastritis #necrotic antrum ulcer GI consulted. Octreotide drip, PPI drip, PRBCs transfused. Vitamin K administered. Continue PPI. Trend Hgb. Monitor for rebleeding. DC octeotride NG tube: 150 cc lactulose oral Start feedings: nephro 30cc/h EGD: ischemic gastritis + necrotic ulcer in the antrum Renal #CLIFFORD on CKD, likely multifactorial: uremia, hypotension, sepsis #Hyperkalemia #Uremic encephalopathy #Emergency dialysis [facility] initiated HD yesterday and today 3LT Albumin given Endocrinology #Hypoglycemia Now stable. Monitor glucose q6h. Nutrition #Severe malnutrition TPN and tube feedings Code Status: full code Lines/Support Intubated Central line DC A-line Jordan catheter dc Durham catheter 07/16/2024: hb 7.9 plat [id number] ABG mild respiratory acidosis RR 24 TV 500, not able to go down on sedation today, dialysis yesterday and today 3 LT, levophed off pm, output g tube 100 cc, dc durham, start tube feedings, discussion with the sister about possible tracheostomy and peg tube, she agreed on both, she is coming next week Prophylaxis and Orders DVT: SCD GI: PPI drip (Protonix) Bowel: Lactulose Case discussed with Dr Jaydon Riddle discussed with: Patient, Other (rn) My Orders My Orders Orders - AUDRA CRANDALL Procedure Category Date Status Time Norepinephrine 8 PHA 07/15/24 In Process Mg/250ml Kit 08:45 Lactulose Oral PHA 07/15/24 In Process 12:00 Abg W/ Co-Ox RT 07/16/24 Logged 04:00 Cpap Trial For Am ORDERS 07/15/24 Transmitted 20:00 Cpap/Sed Vacation Med ORDERS 07/15/24 Transmitted Weaning 20:00 Dietary Evaluation Review Comments: 1. Suggest Nepro 1.8 @ 50 ml/hr + 1 pckt ProStat daily; begin @ 10 ml/hr, advance SLOWLY by 10 ml Q12 hrs to goal-rate of 50 ml/hr continuously 2. Provide minimal free water flushes of 30 ml Q6 hrs (120 ml total) for tube patency; adjust PRN/per MD discretion 3. Continue to monitor/replete lytes, especially K, Mag, Phos given high refeeding risk; add 100 mg thiamine daily x 7 days 4. Should lytes drop, maintain current rate of EN and replace to WNL prior to advancing rate of EN further TF Provision: TF at goal to provide 1200 ml total volume, 2160 kcal (+100 kcal via Prostat = 2260 kcal), 97 gm pro (+ 15 gm via Prostat = 112 gm), 15 gm fiber, 1272 mg K, 864 mg Phos, 872 ml H20 (meets 100% est. kcal needs, 100% est. pro needs) Expected Outcomes/Goals: Improved nutritional status, improved hemodynamic stability. Food and Nutrition Intake (Sev: <50% est energy req 5days Fluid Accumulation (Severe): Moderate Fluid Retention Protein Calorie Malnutrition: Severe Is there a minimum of two crit: Yes CC Plasma Assessment Blood Product Administration S: [id number] Date of Service: Jul 16, 2024 Billing Provider: ASHLEY GALAN MD Common Visit Codes: [id number] CARE 30-74 MIN AUDRA CRANDALL RESIDENT Jul 16, 2024 08:35 ASHLEY GALAN MD Jul 16, 2024 20:50
[2024-07-16] MEDS: SODIUM CHL 0.9% 1000 ML BAG XX ONE (10:46)
--- NOTE | 2024-07-16 10:50 | DVHPN2 ---
Progress Note - Dictate Date Seen: Jul 16, 2024 Has the PT tested + for MRSA If YES, has PT been informed?: No Medical Necessity Reason Pt with a Central, PICC or Fol: Yes The following are medically ne: Durham Catheter Reason for durham catheter: Strict I&O, Total Immobilization Subjective Mr. Juarez is a 53 years old right-handed gentleman with a history of liver failure, liver cirrhosis, alcoholism, prostatic cancer, anxiety, hepatorenal syndrome, he came to the hospital on 06/30/24 because of for a few days. In the hospital, the patient was found to have severe jaundice, liver failure, coagulopathy, urinary tract infection, sepsis, kidney failure. On 07/08/2023, the patient was had code assistance because of hypotension and he was nonresponsive, the patient was resuscitated, intubated and transferred to ICU I saw him on 11/03/2020 for seizure I have seen and examined the patient, he is sedated, responsive to touch He has tried blood in the mouth, ecchymosis in the skin Pupil are round, equal, slightly reactive to lights on 07/14/24 Pupil are round, reactive to lights on 07/14/24, Rt: 6-7mm, Lt: 8mm, later Lt: 4mm, Rt: 3-4mm. No associated abnormal vascular dilatation or skin secretion Pupil are round, 7-8mm, reactive to lights on 07/16/24, the left-sided looks slightly bigger levo 1 mcg/min Hearing culture, 07/01/2024: Enterococcus faecium Blood culture, 06/30/2024: No growth UDS, 07/01/2024: Negative Plasma alcohol, 06/30/2024: 3.6 Urinalysis, 07/01/2024: WBC: 3958, urine leukocyte esterase: 3+ ABG, 07/07/2024: Combined metabolic and respiratory acidosis, respiratory acidosis WBC/HB/PLT/MCV, 07/07/2024: 19.5/8.2/80/100.9, 07/09/2024: 18. 1/6.8/24/97.7, 07/10/2024: 10.2/7.3/19/90.9 PT/INR/PTT, 07/07/2024: 27.2/2.85/56.7, 07/10/2024: 20.6/2.09/54.2 K 07/07/2024: 6.3 BUN/CR, 07/07/2024: 88/7.62 TBI/AST/ALT/AP, 07/07/2024: 23.5/263/60/73 Lactic acid, 07/07/2024: 6.9, 4.9 Ammonia, 11/02/2020: 98, 11/03/2020: 109, 95, 11/07/2020: 95, 06/30/2024: 54, 07/03/2024: 11, 07/07/2024: 33 Vitamin B12, 07/01/24: 2308 Folic acid, 07/01/24: 11.87 EEG, : Iror-xn-pacxfdptly abnormal EEG Chest x-ray, 07/07/2024: Right basilar opacity. Lines and tubes in appropriate position. CT head, 08/18/2020: No acute intracranial abnormality identified. Mild cerebral volume loss. Cerebral atherosclerosis CT head, 06/30/2024: No acute intracranial abnormality CT head, 07/14/2024: No acute intracranial abnormality identified CTA, 11/05/2020: No intracranial hemorrhage vital signs Vital Sign Date Time Temp Pulse Resp B/P (MAP) Pulse Ox O2 Delivery O2 Flow Rate FiO2 07/16/24 10:26 94 24 97/48 (64) 97 30 07/16/24 06:00 Mechanical Ventilator+ 07/16/24 04:00 98.7 98.7 Total Intake and Output 07/15/24 07/15/24 07/16/24 15:00 23:00 07:00 Intake Total 980.90 ml 867.00 ml 350.00 ml Output Total 3470 ml 345 ml Balance 980.90 ml -2603.00 ml 5.00 ml medications Current Medications Medications Dose Ordered Sig/Erik Route Start Time Stop Time Status Last Admin Dose Admin Ondansetron HCl 4 mg Q4HP PRN IV 07/01/24 02:45 Midodrine 10 mg TID@0600,1200,1800 PO 07/01/24 06:00 07/16/24 05:39 10 MG Thiamine HCl 100 mg DAILY PO 07/03/24 10:00 07/15/24 10:04 100 MG Haloperidol Lactate 5 mg Q8HP PRN IM 07/04/24 00:00 07/05/24 22:48 5 MG Phenylephrine HCl 250 ml @ 30 mls/hr Q8H20M IV 07/07/24 09:30 Fentanyl Citrate 250 ml @ 2.5 mls/hr Q24H IV 07/07/24 09:30 07/16/24 00:58 25 MLS/HR Hydrocortisone Sodium Succinate 50 mg Q6HR IV 07/07/24 12:00 07/16/24 05:38 50 MG Meropenem 50 ml @ 17 mls/hr DAILY IV 07/08/24 10:00 07/15/24 10:05 17 MLS/HR Vasopressin 20 units/Sodium Chloride 100 ml @ 9 mls/hr Q11H7M IV 07/07/24 12:30 07/10/24 01:52 6 MLS/HR Pantoprazole Sodium 50 ml @ 10 mls/hr Q5H IV 07/07/24 17:15 07/16/24 06:18 10 MLS/HR Lorazepam 1 mg Q5MINP PRN IV 07/08/24 00:00 Vancomycin HCl 0 ml @ 0 mls/hr UD IV 07/08/24 09:30 Potassium Chloride 100 ml @ 50 mls/hr Q2H IV 07/09/24 14:30 07/09/24 18:29 UNV Diagnostic Test (Pha) 1 strip Q6HR 07/10/24 00:00 07/16/24 05:45 1 STRIP Insulin Human Regular FOLLOW SLIDING SCALE Q6HR SC 07/10/24 00:00 07/16/24 05:45 8 UNITS Dextrose 50 ml UD IV 07/10/24 00:00 Amino Acids 0 ml @ 0 mls/hr PER PHARMACY IV 07/10/24 10:00 Vancomycin HCl 0 ml @ 0 mls/hr UD IV 07/10/24 15:30 Cancel Bumetanide 2.5 mg DAILY IV 07/14/24 10:00 07/15/24 10:03 2.5 MG Sucralfate 1 gm QID@0600,1130,1700,2200 PO 07/14/24 22:00 07/16/24 05:39 1 GM Norepinephrine Bitartrate 250 ml @ 3.75 mls/hr Q24H IV 07/15/24 08:45 07/15/24 17:00 11.25 MLS/HR Lactulose 30 ml Q6HR PO 07/15/24 12:00 07/16/24 05:38 30 ML Fat Emulsion Intravenous 100 ml/Sodium Chloride 40 meq/ Potassium Chloride 60 meq/ Magnesium Sulfate 12 meq/ Multivitamins 10 ml/Insulin Human Regular 28 units/ Amino Acids/ Dextrose 1,653.28 ml @ 68 mls/hr [id number] IV 07/15/24 22:00 07/16/24 21:59 07/15/24 21:33 68 MLS/HR Albumin Human 100 ml @ 100 mls/hr STAT IV 07/15/24 16:00 07/17/24 16:59 objective The patient is well-nourished and well-developed with no distress. The patient is intubated. He has jaundice Bilateral hammertoes and high-arched foot MENTAL STATUS: Subjective CRANIAL NERVES: Pupils are round and reactive.There are corneal reflexes and doll's eyes phenomenon. No signs of facial weakness. There are gagging or coughing reflexes. There was no abnormal skin secretion, abnormal vascular dilatation SENSATION: No responses to pain stimuli. MOTOR: Normal tone in the upper and lower extremity. Normal muscle bulk. No fasciculations. No spontaneous extremity movement REFLEXES: Deep tendon reflexes are symmetrical. No pathological reflexes. CEREBELLAR/COORDINATION: Deferred GAIT/STATION: deferred laboratory and microbiology Laboratory Tests 07/16/24 03:22 Test 07/16/24 03:22 Range/Units Serum Glucose 234 H 74-106 mg/dL Problem List Altered mental status Metabolic cephalopathy Hepatic encephalopathy Hypoxic encephalopathy UTI, sepsis, septic shock Liver failure History of Alcoholism Jaundice Respiratory failure Coagulopathy/oral bleeding Thrombocytopenia Anemia GI on case Anisocoria with left-sided slightly bigger, new since 07/13/2024 according to the nurse, uncertain clinical significance Assessment/Plan Monitoring Supportive treatment ICU care Follow-up labs Stabilize vitals/pressor drip Respiratory support/vent management Thiamine supplementation Lactulose Nephrology on case Pulmonology on case GI on case This medical document was created using an electronic medical record system with [employer] dictation system. Although this document has been carefully reviewed, there may still be some phonetic and typographical errors. These areas are purely typographical due to imperfections of the software programs, and do not reflect any compromise in the patient's medical care. Prognosis guarded Dietary Evaluation Review Comments: 1. Suggest Nepro 1.8 @ 50 ml/hr + 1 pckt ProStat daily; begin @ 10 ml/hr, advance SLOWLY by 10 ml Q12 hrs to goal-rate of 50 ml/hr continuously 2. Provide minimal free water flushes of 30 ml Q6 hrs (120 ml total) for tube patency; adjust PRN/per MD discretion 3. Continue to monitor/replete lytes, especially K, Mag, Phos given high refeeding risk; add 100 mg thiamine daily x 7 days 4. Should lytes drop, maintain current rate of EN and replace to WNL prior to advancing rate of EN further TF Provision: TF at goal to provide 1200 ml total volume, 2160 kcal (+100 kcal via Prostat = 2260 kcal), 97 gm pro (+ 15 gm via Prostat = 112 gm), 15 gm fiber, 1272 mg K, 864 mg Phos, 872 ml H20 (meets 100% est. kcal needs, 100% est. pro needs) Expected Outcomes/Goals: Improved nutritional status, improved hemodynamic stability. Food and Nutrition Intake (Sev: <50% est energy req 5days Fluid Accumulation (Severe): Moderate Fluid Retention Protein Calorie Malnutrition: Severe Is there a minimum of two crit: Yes Plan discussed with: Other Critical Care Time(min): 30 CC Plasma Assessment Blood Product Administration S: [id number] ERIC ARIAS MD Jul 16, 2024 10:50
[2024-07-16] MEDS: ALBUMIN 25% 200 ML IV ONE (11:08)
--- NOTE | 2024-07-16 11:08 | DVHPN2 ---
Progress Note Date Seen: Jul 16, 2024 Resident Creating Document: ADITHYA PEREZ RESIDENT Has the PT tested + for MRSA If YES, has PT been informed?: No Medical Necessity Reason Pt with a Central, PICC or Fol: Yes The following are medically ne: Durham Catheter Reason for durham catheter: Strict I&O, Total Immobilization Subjective Review of Systems Patient is examined at bedside, currently on vasopressors prn. hemodialysis was performed today and albumin was given for blood pressure control. Patient is anuric, durham catheter was discontinued. Hemodialysis performed , fluid removal 3 L. Close monitoring on electrolytes levels. Persistent severe thrombocytopenia currently on 23. Objective vital signs Vital Sign Date Time Temp Pulse Resp B/P (MAP) Pulse Ox O2 Delivery O2 Flow Rate FiO2 07/16/24 10:45 105/47 07/16/24 10:26 94 24 97 30 07/16/24 06:00 Mechanical Ventilator+ 07/16/24 04:00 98.7 98.7 Total Intake and Output 07/15/24 07/15/24 07/16/24 15:00 23:00 07:00 Intake Total 980.90 ml 867.00 ml 350.00 ml Output Total 3470 ml 345 ml Balance 980.90 ml -2603.00 ml 5.00 ml medications Current Medications Medications Dose Ordered Sig/Erik Route Start Time Stop Time Status Last Admin Dose Admin Ondansetron HCl 4 mg Q4HP PRN IV 07/01/24 02:45 Midodrine 10 mg TID@0600,1200,1800 PO 07/01/24 06:00 07/16/24 05:39 10 MG Thiamine HCl 100 mg DAILY PO 07/03/24 10:00 07/16/24 10:45 100 MG Haloperidol Lactate 5 mg Q8HP PRN IM 07/04/24 00:00 07/05/24 22:48 5 MG Phenylephrine HCl 250 ml @ 30 mls/hr Q8H20M IV 07/07/24 09:30 Fentanyl Citrate 250 ml @ 2.5 mls/hr Q24H IV 07/07/24 09:30 07/16/24 00:58 25 MLS/HR Hydrocortisone Sodium Succinate 50 mg Q6HR IV 07/07/24 12:00 07/16/24 05:38 50 MG Meropenem 50 ml @ 17 mls/hr DAILY IV 07/08/24 10:00 07/15/24 10:05 17 MLS/HR Vasopressin 20 units/Sodium Chloride 100 ml @ 9 mls/hr Q11H7M IV 07/07/24 12:30 07/10/24 01:52 6 MLS/HR Pantoprazole Sodium 50 ml @ 10 mls/hr Q5H IV 07/07/24 17:15 07/16/24 06:18 10 MLS/HR Lorazepam 1 mg Q5MINP PRN IV 07/08/24 00:00 Vancomycin HCl 0 ml @ 0 mls/hr UD IV 07/08/24 09:30 Potassium Chloride 100 ml @ 50 mls/hr Q2H IV 07/09/24 14:30 07/09/24 18:29 UNV Diagnostic Test (Pha) 1 strip Q6HR 07/10/24 00:00 07/16/24 05:45 1 STRIP Insulin Human Regular FOLLOW SLIDING SCALE Q6HR SC 07/10/24 00:00 07/16/24 05:45 8 UNITS Dextrose 50 ml UD IV 07/10/24 00:00 Amino Acids 0 ml @ 0 mls/hr PER PHARMACY IV 07/10/24 10:00 Vancomycin HCl 0 ml @ 0 mls/hr UD IV 07/10/24 15:30 Cancel Bumetanide 2.5 mg DAILY IV 07/14/24 10:00 07/16/24 10:45 2.5 MG Sucralfate 1 gm QID@0600,1130,1700,2200 PO 07/14/24 22:00 07/16/24 05:39 1 GM Norepinephrine Bitartrate 250 ml @ 3.75 mls/hr Q24H IV 07/15/24 08:45 07/15/24 17:00 11.25 MLS/HR Lactulose 30 ml Q6HR PO 07/15/24 12:00 07/16/24 05:38 30 ML Fat Emulsion Intravenous 100 ml/Sodium Chloride 40 meq/ Potassium Chloride 60 meq/ Magnesium Sulfate 12 meq/ Multivitamins 10 ml/Insulin Human Regular 28 units/ Amino Acids/ Dextrose 1,653.28 ml @ 68 mls/hr [id number] IV 07/15/24 22:00 07/16/24 21:59 07/15/24 21:33 68 MLS/HR Fat Emulsion Intravenous 200 ml/Sodium Chloride 40 meq/ Potassium Chloride 30 meq/ Potassium Phosphate 30 meq/ Magnesium Sulfate 10 meq/ Multivitamins 10 ml/Insulin Human Regular 28 units/ Amino Acids/ Dextrose 1,644.5982 ml @ 68 mls/hr [id number] IV 07/16/24 22:00 07/17/24 21:59 Albumin Human 100 ml @ 100 mls/hr ONCE PRN IV 07/16/24 11:00 07/16/24 13:00 Albumin Human 100 ml @ 100 mls/hr ONCE PRN IV 07/16/24 11:30 07/16/24 13:30 Examination: GENERAL:Abnormal, HEENT:Normal, NECK:Abnormal, LUNGS:Abnormal, CVS:Normal, ABDOMEN:Normal, MSK:Abnormal, SKIN:Abnormal, NEURO:Abnormal, :Abnormal laboratory and microbiology Laboratory Tests 07/16/24 03:22 Test 07/16/24 03:22 Range/Units Serum Glucose 234 H 74-106 mg/dL Microbiology Date/Time Source Procedure Growth Status 07/07/24 09:58 Trachea Gram Stain - Final Complete 07/07/24 09:58 Respiratory Culture - Final Presumptive Julissa albicans Complete 07/01/24 17:21 Voided Urine Urine Culture - Final Enterococcus faecium Complete 07/01/24 08:53 Ascities Fluid Gram Stain - Final Complete 07/01/24 08:53 Ascities Fluid Body Fluid Culture - Final Complete 06/30/24 21:52 Blood Blood Culture - Final NO GROWTH AFTER 5 DAYS OF INCUBATION. Complete Problem List/Assessment/Plan Problem List/Assessment/Plan Assessment: # Severe acute kidney injury on CKD likely ATN due to septic shock #GI bleed #CKD stage [place] #Anasarca # Septic shock due to UTI secondary to enterococcus faecium: #Spontaneous bacterial peritonitis secondary to liver failure due to cirrhosis #Possible Hepatic encephalopathy and cirrhosis (alcohol-related): #GI bleed likely upper GI source in cirrhotic patient #Electrolyte imbalances Plan: - On hemodialysis, fluid removal 3 L. - volume status: patient is clinically fluid overloaded, recommend fluid input restriction as much as possible - discontinue Durham catheter - Avoid nephrotoxins. - EPOGEN 10,000 units three times a week. - monitor platelets - Continue antibiotics IV with renal dosing. - GI on board - Poor prognosis - CBC, BMP monitor closely tomorrow morning case discussed with code status: full code Plan discussed with: Patient Dietary Evaluation Review Comments: 1. Suggest Nepro 1.8 @ 50 ml/hr + 1 pckt ProStat daily; begin @ 10 ml/hr, advance SLOWLY by 10 ml Q12 hrs to goal-rate of 50 ml/hr continuously 2. Provide minimal free water flushes of 30 ml Q6 hrs (120 ml total) for tube patency; adjust PRN/per MD discretion 3. Continue to monitor/replete lytes, especially K, Mag, Phos given high refeeding risk; add 100 mg thiamine daily x 7 days 4. Should lytes drop, maintain current rate of EN and replace to WNL prior to advancing rate of EN further TF Provision: TF at goal to provide 1200 ml total volume, 2160 kcal (+100 kcal via Prostat = 2260 kcal), 97 gm pro (+ 15 gm via Prostat = 112 gm), 15 gm fiber, 1272 mg K, 864 mg Phos, 872 ml H20 (meets 100% est. kcal needs, 100% est. pro needs) Expected Outcomes/Goals: Improved nutritional status, improved hemodynamic stability. Food and Nutrition Intake (Sev: <50% est energy req 5days Fluid Accumulation (Severe): Moderate Fluid Retention Protein Calorie Malnutrition: Severe Is there a minimum of two crit: Yes CC Plasma Assessment Blood Product Administration S: [id number] ADITHYA PEREZ RESIDENT Jul 16, 2024 11:07
[2024-07-16] MEDS ORDERED: ALBUMIN 25% 100 ML IV PRN (11:30)
[2024-07-16] MEDS: ALBUMIN 25% 100 ML IV PRN (12:47)
[2024-07-16 13:12] LABS: INR 1.94 (0.9-1.15); Partial Thromboplastin Time 57.2 SEC (24.5-34.5); Prothrombin Time 19.3 sec (9.3-11.8)
[2024-07-16] MEDS: fentaNYL Drip 2500mCg/250mlNS 250 ML IV SCH (13:49)
[2024-07-16] MEDS: Nepro With Carb Steady 1 Liter Bottle GT SCH (16:14)
[2024-07-16] MEDS: POTASSIUM PHOSPHATE 22 MEQ in SODIUM CHL 0.9% 100 ML IV ONE (16:23)
[2024-07-16] MEDS: VANCOMYCIN 500mg/100mL 100 ML IV ONE (18:15)
[2024-07-16] MEDS: TPN*HIGH CONC* PER PHARMACY IV NR (21:29)
[2024-07-16] MEDS ORDERED: TPN PER PHARMACY IV NR (22:00)
--- NOTE | 2024-07-16 22:00 | DVHPN2 ---
Progress Note - Dictate Date Seen: Jul 16, 2024 Has the PT tested + for MRSA If YES, has PT been informed?: No Medical Necessity Reason Pt with a Central, PICC or Fol: Yes Reason for durham catheter: Total Immobilization Subjective Patient seen and examined at bedside. Intubated on mechanical ventilator. Overnight events reviewed. vital signs Vital Sign Date Time Temp Pulse Resp B/P (MAP) Pulse Ox O2 Delivery O2 Flow Rate FiO2 07/16/24 20:17 95 24 104/41 (62) 98 30 07/16/24 18:00 Mechanical Ventilator+ 07/16/24 08:00 97.5 97.5 Total Intake and Output 07/15/24 07/15/24 07/16/24 15:00 23:00 07:00 Intake Total 980.90 ml 867.00 ml 443.00 ml Output Total 3470 ml 345 ml Balance 980.90 ml -2603.00 ml 98.00 ml medications Current Medications Medications Dose Ordered Sig/Erik Route Start Time Stop Time Status Last Admin Dose Admin Ondansetron HCl 4 mg Q4HP PRN IV 07/01/24 02:45 Midodrine 10 mg TID@0600,1200,1800 PO 07/01/24 06:00 07/16/24 18:16 10 MG Thiamine HCl 100 mg DAILY PO 07/03/24 10:00 07/16/24 10:45 100 MG Haloperidol Lactate 5 mg Q8HP PRN IM 07/04/24 00:00 07/05/24 22:48 5 MG Phenylephrine HCl 250 ml @ 30 mls/hr Q8H20M IV 07/07/24 09:30 Hydrocortisone Sodium Succinate 50 mg Q6HR IV 07/07/24 12:00 07/16/24 05:38 50 MG Meropenem 50 ml @ 17 mls/hr DAILY IV 07/08/24 10:00 07/16/24 13:52 17 MLS/HR Vasopressin 20 units/Sodium Chloride 100 ml @ 9 mls/hr Q11H7M IV 07/07/24 12:30 07/10/24 01:52 6 MLS/HR Pantoprazole Sodium 50 ml @ 10 mls/hr Q5H IV 07/07/24 17:15 07/16/24 21:57 10 MLS/HR Lorazepam 1 mg Q5MINP PRN IV 07/08/24 00:00 Vancomycin HCl 0 ml @ 0 mls/hr UD IV 07/08/24 09:30 Potassium Chloride 100 ml @ 50 mls/hr Q2H IV 07/09/24 14:30 07/09/24 18:29 UNV Diagnostic Test (Pha) 1 strip Q6HR 07/10/24 00:00 07/16/24 17:48 1 STRIP Insulin Human Regular FOLLOW SLIDING SCALE Q6HR SC 07/10/24 00:00 07/16/24 17:57 8 UNITS Dextrose 50 ml UD IV 07/10/24 00:00 Amino Acids 0 ml @ 0 mls/hr PER PHARMACY IV 07/10/24 10:00 Vancomycin HCl 0 ml @ 0 mls/hr UD IV 07/10/24 15:30 Cancel Sucralfate 1 gm QID@0600,1130,1700,2200 PO 07/14/24 22:00 07/16/24 18:13 1 GM Norepinephrine Bitartrate 250 ml @ 3.75 mls/hr Q24H IV 07/15/24 08:45 07/15/24 17:00 11.25 MLS/HR Lactulose 30 ml Q6HR PO 07/15/24 12:00 07/16/24 18:00 30 ML Enteral Nutritional Formula 1,000 ml 30ML/HR GT 07/16/24 11:30 07/16/24 16:14 1,000 ML Fentanyl Citrate 250 ml @ 2.5 mls/hr Q24H IV 07/16/24 12:45 07/16/24 13:49 25 MLS/HR Fat Emulsion Intravenous 133 ml/Sodium Chloride 40 meq/ Potassium Chloride 50 meq/ Magnesium Sulfate 12 meq/ Multivitamins 10 ml/Insulin Human Regular 30 units/ Amino Acids/ Dextrose 1,431.3 ml @ 60 mls/hr [id number] IV 07/16/24 22:00 07/17/24 21:59 07/16/24 21:29 60 MLS/HR objective Gen.: Patient lying in bed in medical ICU. Intubated on mechanical ventilator. Head: Normocephalic, atraumatic. Eyes: PERRLA. Ears: Normal external anatomy. Throat: Endotracheal tube and orogastric tube in place. Neck: Supple, trachea midline. Chest: Transmitted breath sounds bilaterally. Decreased air entry bilaterally. No wheezing. Bibasilar crackles. Cardiovascular: Positive S1, positive S2. Regular rate and rhythm. Abdomen: Positive bowel sounds in all 4 quadrants. Soft, nontender, nondistended. : Durham in place. Normal external genitalia. Rectal: Deferred. Skin: Warm, dry. Intact. Extremities: 2+ radial pulses bilaterally. No lower extremity edema. Neuro: Off sedation laboratory and microbiology Laboratory Tests 07/16/24 03:22 Test 07/16/24 03:22 Range/Units Serum Glucose 234 H 74-106 mg/dL Assessment/Plan Impression: Acute hypercarbic respiratory failure On mechanical ventilator Acute metabolic encephalopathy Shock Liver cirrhosis Hx of ETOH abuse Thrombocytopenia Events: Remains on vent support On AC mode; RR 24, VT 500, PEEP 5, FiO2 30% On Fentanyl drip. Off Levophed, hemodynamically stable. S/p hemodialysis, removed 3 liters ABG reviewed, compensated Chest x-ray reveals bibasilar atelectasis. Devices in place. Continue antibiotics Continue Protonix drip Tube feeds for nutritional support Family discussion regarding goals of care. Monitor hemoglobin Monitor platelets d/t thrombocytopenia NGT in place On lactulose EGD revealed extensive ulceration of gastric body and antrum with necrosis, hiatal hernia, erosive esophagitis. Awaiting biopsy results. GI recs appreciated S/p paracentesis on 07/13/24 Diurese w/ Bumex drip HD per Nephrology Monitor renal function Monitor electrolytes. Supplement as necessary. K phos supplementation Monitor ins and outs. Durham removed Accu-Cheks, ISS. Labs and imaging reviewed. Rest of plan as noted below. Plan: s/p intubation on mechanical ventilator. On AC mode; RR 24, VT 500, PEEP 5, FiO2 30% Titrate FIO2 to keep O2 saturation above 90%. VAP bundle. Daily ABG and CXR while intubated Off sedation Continue antibiotics. Protonix drip GI recommendations appreciated Pressors if necessary for hemodynamic support Titrate to keep mean arterial pressure greater than 65 mmHg. Accu-Cheks, ISS PRN. Monitor renal function Monitor electrolytes. Supplement as necessary. Monitor ins and outs. Maintain euvolemia. GI prophylaxis. DVT prophylaxis. Prognosis: Poor given patient's multiple co-morbidities. Condition: Critical Rest of plan per hospitalist and other consultants. A total of 35 minutes of critical care time was spent reviewing the patient record, examining the patient, making a diagnostic and therapeutic plan, discussing this plan with the medical personnel, following up on diagnostic studies and following the patient for clinical stability excluding any and all procedures. At least 50% of this time was spent in direct, [id number] contact. Thank you Dr. Ovalle for allowing me to participate in this patient's care. Further recommendations will depend on the patient's clinical course. Please do not hesitate to contact me if you have any questions or concerns. This medical document was created using an electronic medical record system with [employer] dictation system. Although these documentations are being carefully reviewed, there may still be some phonetic and typographical changes. The errors are purely typographical, due to imperfection on the software program, and do not reflect any compromise in the patient's medical care. Dietary Evaluation Review Comments: 1. Suggest Nepro 1.8 @ 50 ml/hr + 1 pckt ProStat daily; begin @ 10 ml/hr, advance SLOWLY by 10 ml Q12 hrs to goal-rate of 50 ml/hr continuously 2. Provide minimal free water flushes of 30 ml Q6 hrs (120 ml total) for tube patency; adjust PRN/per MD discretion 3. Continue to monitor/replete lytes, especially K, Mag, Phos given high refeeding risk; add 100 mg thiamine daily x 7 days 4. Should lytes drop, maintain current rate of EN and replace to WNL prior to advancing rate of EN further TF Provision: TF at goal to provide 1200 ml total volume, 2160 kcal (+100 kcal via Prostat = 2260 kcal), 97 gm pro (+ 15 gm via Prostat = 112 gm), 15 gm fiber, 1272 mg K, 864 mg Phos, 872 ml H20 (meets 100% est. kcal needs, 100% est. pro needs) Expected Outcomes/Goals: Improved nutritional status, improved hemodynamic stability. Food and Nutrition Intake (Sev: <50% est energy req 5days Fluid Accumulation (Severe): Moderate Fluid Retention Protein Calorie Malnutrition: Severe Is there a minimum of two crit: Yes Plan discussed with: Other (CLIVE Chappell) Critical Care Time(min): 35 CC Plasma Assessment Blood Product Administration S: [id number] JOAQUÍN VILLAFANA MD Jul 16, 2024 22:00
[2024-07-17] VITALS (110 sets, daily range): BP systolic 86–193; BP diastolic 40–120; PULSE 93–113; RESP 12–48; TEMP 97.5–98.1; O2SAT 94–100
[2024-07-17 04:04] LABS: Red Cell Distribution Width 16.4 % (11.8-14.3)
[2024-07-17 04:06] LABS: Hematocrit 23.2 % (41.0-53.0); Hemoglobin 8.2 g/dL (13.5-17.5); Mean Corpuscular Hemoglobin 31.4 pg (28.0-32.0); Mean Corpuscular Hgb Conc. 35.5 g/dL (32.0-36.0); Mean Corpuscular Volume 88.5 fL (80.0-100.0); Platelet Count (auto) 50 10^3/uL (140-450); Red Blood Cells 2.62 10^6/uL (4.5-5.90); White Blood Cell 18.4 10^3/uL (4.4-10.8)
[2024-07-17 04:11] LABS: INR 1.9 (0.9-1.15); Partial Thromboplastin Time 49.7 SEC (24.5-34.5); Prothrombin Time 18.9 sec (9.3-11.8)
[2024-07-17 04:18] LABS: Albumin 3.9 g/dL (3.2-4.8); Alkaline Phosphatase 90 U/L (46-116); Anion Gap 10 (5-15); Basophils % (manual) 0 (0.0-2.0); Blast Cells 0; Carbon Dioxide 28 mmol/L (20-31); Chloride 101 mmol/L (98-107); Eosinophils % (manual) 0 (0-7); Magnesium 2.3 mg/dL (1.6-2.6); Metamyelocytes % 0; Promyelocytes % 0; Reactive Lymphocytes 0; Sodium 139 mmol/L (136-145)
[2024-07-17 04:36] LABS: BUN/Creatinine Ratio 25.2 (10.0-20.0); Blood Urea Nitrogen 75 mg/dL (9-23); Glucose 173 mg/dL (74-106)
[2024-07-17 04:37] LABS: Alanine Aminotransferase 48 U/L (7-40); Aspartate Aminotransferase 55 U/L (13-40); Bilirubin, Total 21.8 mg/dL (0.2-1.0); Calcium 10.5 mg/dL (8.7-10.4); Phosphorus 1.6 mg/dL (2.4-5.1); Total Protein 5.8 g/dL (5.7-8.2)
[2024-07-17 04:56] LABS: Band Neutrophils % (manual) 4; Lymphocytes % (manual) 14 (10.0-50.0); Monocytes % (manual) 20 (0-12); Myelocytes % 2
[2024-07-17 04:57] LABS: Platelet Estimate Decreased
--- NOTE | 2024-07-17 06:02 | DVH ---
CHEST RADIOGRAPH Indication: Intubated Technique: Single frontal view of the chest was obtained Comparison: XY CHEST PORTABLE on DOS: 07/16/24, XY CHEST PORTABLE on DOS: 07/15/24, XY CHEST PORTABLE o n DOS: 07/14/24 FINDINGS: Lines and Tubes: Endotracheal tube terminates 6.2 cm above the sim. Left central venous catheter t erminates in the superior vena cava. The enteric tube courses below the left hemidiaphragm and the ti p extends outside the field of view. Lungs: Bibasilar atelectasis similar to prior study. Pleura: No effusion. No pneumothorax. Cardiomediastinal contours: Unremarkable Bones: No acute osseous abnormality. IMPRESSION: 1. Bibasilar atelectasis similar to prior study.
[2024-07-17] MEDS: SODIUM CHL 0.9% 1000 ML BAG XX ONE (07:00)
[2024-07-17 07:30] LABS: Base Excess -0.2 mmol/L (-2.0-3.0)
[2024-07-17] MEDS: ALBUMIN 25% 100 ML IV ONE ×6 (08:33→15:20)
--- NOTE | 2024-07-17 09:43 | DVH ---
INDICATION: rule out cholecystitis, pain TECHNIQUE: Multiple real-time sonographic images were obtained of the right upper quadrant. COMPARISON: 06/30/24 FINDINGS: Hepatic cirrhosis. The liver demonstrates coarsened echotexture without focal mass lesions. The liver measures 18 cm. There is no intrahepatic or extrahepatic ductal dilatation. The common du ct is not well visualized due to obscuration from bowel gas. Gallbladder sludge The gallbladder wall measures 4 mm and is mildly thickened which is nonspecific i n the setting of chronic liver disease. The right kidney measures 9.0 cm. Increased echogenicity of the right kidney suggestive of chronic m edical renal disease. No hydronephrosis. The pancreas is not well visualized due to overlying bowel gas. IMPRESSION: Hepatic cirrhosis with large volume ascites. Gallbladder sludge. Nonspecific gallbladder wall thickening which can be seen in the setting of media relations director angel liver disease.
[2024-07-17] MEDS: DexAMETHasone INJECTION 10 MG in D5W 5% 50 ML IV SCH (10:00)
[2024-07-17] MEDS ORDERED: HEPARIN SODIUM (PORCINE) 5000 UNITS/ML 1ML VIAL IV ONE (10:00)
--- NOTE | 2024-07-17 13:30 | DVHPN2 ---
Progress Note Date Seen: Jul 17, 2024 Resident Creating Document: ADITHYA PEREZ RESIDENT Has the PT tested + for MRSA If YES, has PT been informed?: No Medical Necessity Reason Pt with a Central, PICC or Fol: Yes Reason for durham catheter: Total Immobilization Subjective Review of Systems 53-year-old male with a history of alcohol-induced liver cirrhosis,and end-stage renal disease , who presented to the ED with altered mental status. Workup revealed UTI positive for Enterococcus faecium, spontaneous bacterial peritonitis with PMNs >250/mm (fluid WBC 2108, PMNs 98%) and hepatic encephalopathy. He developed acute kidney injury CLIFFORD on CKD, likely secondary to ATN from hypotension, sepsis, and GI blood loss, necessitating initiation of daily hemodialysis. Hemodialysis today with the goal of 4.5L fluid removal. monitor electrolytes and platelets. Today leukocytes were found to be elevated, meet sirs/sepsis criteria new lactic acid level was ordered, associated with increased aminotransferases and direct bilirrubin in the setting of a critically ill patient on TPN and mechanical ventilation. Rule out acalculous cholecystitis Objective vital signs Vital Sign Date Time Temp Pulse Resp B/P (MAP) Pulse Ox O2 Delivery O2 Flow Rate FiO2 07/17/24 12:32 95 26 126/58 (80) 94 30 07/17/24 08:30 97.5 97.5 07/17/24 07:39 Mechanical Ventilator+ Total Intake and Output 07/16/24 07/16/24 07/17/24 15:00 23:00 07:00 Intake Total 938.75 ml 924 ml 840 ml Output Total 60 ml 100 ml Balance 938.75 ml 864 ml 740 ml medications Current Medications Medications Dose Ordered Sig/Erik Route Start Time Stop Time Status Last Admin Dose Admin Thiamine HCl 100 mg DAILY PO 07/03/24 10:00 07/17/24 09:22 100 MG Haloperidol Lactate 5 mg Q8HP PRN IM 07/04/24 00:00 07/05/24 22:48 5 MG Meropenem 50 ml @ 17 mls/hr DAILY IV 07/08/24 10:00 07/17/24 09:21 17 MLS/HR Vasopressin 20 units/Sodium Chloride 100 ml @ 9 mls/hr Q11H7M IV 07/07/24 12:30 07/10/24 01:52 6 MLS/HR Pantoprazole Sodium 50 ml @ 10 mls/hr Q5H IV 07/07/24 17:15 07/17/24 07:15 10 MLS/HR Lorazepam 1 mg Q5MINP PRN IV 07/08/24 00:00 Vancomycin HCl 0 ml @ 0 mls/hr UD IV 07/08/24 09:30 Potassium Chloride 100 ml @ 50 mls/hr Q2H IV 07/09/24 14:30 07/09/24 18:29 UNV Diagnostic Test (Pha) 1 strip Q6HR 07/10/24 00:00 07/17/24 06:09 1 STRIP Insulin Human Regular FOLLOW SLIDING SCALE Q6HR SC 07/10/24 00:00 07/17/24 06:13 4 UNITS Dextrose 50 ml UD IV 07/10/24 00:00 Vancomycin HCl 0 ml @ 0 mls/hr UD IV 07/10/24 15:30 Cancel Sucralfate 1 gm QID@0600,1130,1700,2200 PO 07/14/24 22:00 07/17/24 09:22 1 GM Norepinephrine Bitartrate 250 ml @ 3.75 mls/hr Q24H IV 07/15/24 08:45 07/17/24 08:25 3.75 MLS/HR Lactulose 30 ml Q6HR PO 07/15/24 12:00 07/17/24 06:14 30 ML Enteral Nutritional Formula 1,000 ml 30ML/HR GT 07/16/24 11:30 07/16/24 16:14 1,000 ML Fentanyl Citrate 250 ml @ 2.5 mls/hr Q24H IV 07/16/24 12:45 07/17/24 08:28 22.5 MLS/HR Fat Emulsion Intravenous 133 ml/Sodium Chloride 40 meq/ Potassium Chloride 50 meq/ Magnesium Sulfate 12 meq/ Multivitamins 10 ml/Insulin Human Regular 30 units/ Amino Acids/ Dextrose 1,431.3 ml @ 60 mls/hr [id number] IV 07/16/24 22:00 07/17/24 21:59 07/16/24 21:29 60 MLS/HR Dexamethasone Sodium Phosphate 10 mg/Dextrose 51 ml @ 204 mls/hr DAILY IV 07/17/24 10:00 Fat Emulsion Intravenous 133 ml/Sodium Chloride 40 meq/ Potassium Chloride 30 meq/ Magnesium Sulfate 8 meq/ Multivitamins 10 ml/Insulin Human Regular 32 units/ Amino Acids/ Dextrose 1,470.32 ml @ 61 mls/hr Q24H7M IV 07/17/24 22:00 07/18/24 21:59 Examination: GENERAL:Abnormal, NECK:Normal, LUNGS:Abnormal, CVS:Normal, ABDOMEN:Abnormal, MSK:Abnormal, SKIN:Abnormal, NEURO:Abnormal, :Abnormal laboratory and microbiology Laboratory Tests 07/17/24 03:25 Test 07/17/24 03:25 Range/Units Serum Glucose 173 H 74-106 mg/dL Microbiology Date/Time Source Procedure Growth Status 07/07/24 09:58 Trachea Gram Stain - Final Complete 07/07/24 09:58 Respiratory Culture - Final Presumptive Julissa albicans Complete 07/01/24 17:21 Voided Urine Urine Culture - Final Enterococcus faecium Complete 07/01/24 08:53 Ascities Fluid Gram Stain - Final Complete 07/01/24 08:53 Ascities Fluid Body Fluid Culture - Final Complete 06/30/24 21:52 Blood Blood Culture - Final NO GROWTH AFTER 5 DAYS OF INCUBATION. Complete Problem List/Assessment/Plan Problem List/Assessment/Plan Assessment: # Severe acute kidney injury on CKD likely ATN due to septic shock #Sepsis likely due to acute cholecystitis, rule out acalculous cholecystitis #GI bleed #CKD stage [place] #Anasarca # Septic shock due to UTI secondary to enterococcus faecium: #Spontaneous bacterial peritonitis secondary to liver failure due to cirrhosis #Possible Hepatic encephalopathy and cirrhosis (alcohol-related): #GI bleed likely upper GI source in cirrhotic patient #Electrolyte imbalances #Hypophosphatemia #Rule out acalculous cholecystitis #Hospice Plan: - Admit to ICU - volume status: patient still volume overloaded - hemodialysis today - volume status: patient is clinically fluid overloaded, recommend fluid input restriction as much as possible - Albumin during hemodyalysis - on vasopressors and sedatives - EPOGEN 10,000 units three times a week. - monitor platelets - Continue antibiotics IV with renal dosing. - Poor prognosis - CBC, BMP monitor closely tomorrow morning case discussed with code status: full code Plan discussed with: Other Dietary Evaluation Review Comments: 1. Suggest Nepro 1.8 @ 50 ml/hr + 1 pckt ProStat daily; begin @ 10 ml/hr, advance SLOWLY by 10 ml Q12 hrs to goal-rate of 50 ml/hr continuously 2. Provide minimal free water flushes of 30 ml Q6 hrs (120 ml total) for tube patency; adjust PRN/per MD discretion 3. Continue to monitor/replete lytes, especially K, Mag, Phos given high refeeding risk; add 100 mg thiamine daily x 7 days 4. Should lytes drop, maintain current rate of EN and replace to WNL prior to advancing rate of EN further TF Provision: TF at goal to provide 1200 ml total volume, 2160 kcal (+100 kcal via Prostat = 2260 kcal), 97 gm pro (+ 15 gm via Prostat = 112 gm), 15 gm fiber, 1272 mg K, 864 mg Phos, 872 ml H20 (meets 100% est. kcal needs, 100% est. pro needs) Expected Outcomes/Goals: Improved nutritional status, improved hemodynamic stability. Food and Nutrition Intake (Sev: <50% est energy req 5days Fluid Accumulation (Severe): Moderate Fluid Retention Protein Calorie Malnutrition: Severe Is there a minimum of two crit: Yes CC Plasma Assessment Blood Product Administration S: [id number] ADITHYA PEREZ RESIDENT Jul 17, 2024 13:30
[2024-07-17 13:51] LABS: Lactic Acid w/Reflex 2.3 mmol/L (0.4-2.0)
--- NOTE | 2024-07-17 14:09 | DVHPNRES ---
Progress Note Date Seen: Jul 17, 2024 Resident Creating Document: AUDRA CRANDALL RESIDENT Has the PT tested + for MRSA If YES, has PT been informed?: No Medical Necessity Reason Pt with a Central, PICC or Fol: Yes Reason for durham catheter: Total Immobilization Subjective Review of Systems A 53-year-old male with past medical history of liver cirrhosis (due to alcohol use disorder)and CKD brought to the hospital due to altered mental status. Family were called, but the didnt answer, all the info was taken to the medical records Per EMS reports patient was taken from home and per family member he has been altered since 1 week which has progressively worsened. He was admitted on 10/31/2020 and DVT H due to GI bleeding, EGD was performed, showed gastritis with no active bleeding. PMHx: Liver cirrhosis due to alcohol use disorder, CKD Social history: Has history of alcohol use disorder 07/01/2024: paracentesis done 7LT, multiple wbc in the ascitic fluid, labile BPs, midodrine and octeotride started, zosyn and linezolid due to sepsis and possible SBP, start levophed if MAP below 60, fluids were given, protonix BID 07/02/2024: renal function is declining, hb is stable, FOB neg, protonix drip started, bumex drip started 07/06/2024: urine culture positive for enterococcus, patient is on zosyn and linezolid, hyperkalemia 5.8 07/07/2024: At around 9 a.m., patient was found gasping for air with MAP of 53. Rapid response was called. Mental status deteriorated (GCS drop), requiring intubation. Central line and Jordan catheter were placed. Started on vasopressors: Levophed up to 30 mcg/min and Vasopressin 0.04 U/min. Emergent dialysis was initiated due to uremia and hyperkalemia (K 6.3, later improved to 4.1). ABG showed compensated respiratory status. Patient was found to be hypoglycemic (glucose 16) during event. He is now sedated on fentanyl drip. Labs showed Hgb 6.6likely due to GI bleed; received blood products, Vitamin K, and PPI drip. Prognosis remains poor, and case was re-discussed with family; full code until now 07/08/2024: yesterday HD filtration only, platelets trending down, Dc linezolid, start vancomycin, start low dose propofol, levophed off, still on vasopressin, , GI ok with NG tube, minimal vent settings (fio2 40%) 07/09/2024: 1 apheresis and 1 rbc given, still bloody secretions from mouth, albumin and bumex given, clinimix started by GI, min vent settings, still on vasopressin, octreotide and protonix drip, HD today 07/13/2024: Pt is on TPN, so far in this admission: 6 URBC, 4 FFP, 5 Units of platelets and 1 unit of cryoprecipitates given, dialysis yesterday 2LT, new paracentesis on 07/12/2024 7.8 Lt, jn is growing in the sputum (colonization), hb 8.2 plat 60002 ABG: mild respiratory acidosis, levophed 4 mcg, protonix and octreotide drip, vancomycin and meropenem, no fevers, minimal vent settings 07/14/2024: hb 8,2 plat 22, ABG respiratory acidosis pH 7.27 pCO2 56.2 bicarb 25, tidal volume was increased 500, possible scope today, frozen plasma and platelets ordered, right now patient is getting dialysis, Levophed during the night 2 mcg, bleeding through the G-tube 350 cc, Durham 200cc urine, no fevers, head ct scan will be ordered after scope 07/15/2024: hb 8.3 plat 25 ABG respiratory alkalosis RR 24 TV 500, scope yesterday:antrum with necrosis and overlying eschar most prominent in the antrum causing oozing and pylorus, dialysis yesterday 3LT out, levophed 4 mcg, output in the gtube 150cc, normal head ct scan 07/16/2024: hb 7.9 plat 32162 ABG mild respiratory acidosis RR 24 TV 500, not able to go down on sedation today, dialysis yesterday and today 3 LT, levophed off pm, output g tube 100 cc, dc durham, start tube feedings, discussion with the sister about possible tracheostomy and peg tube, she agreed on both, she is coming next week 07/17/2024: wbc 30586 hb 8.2 plat 51372 ABG normal, dialysis today 4lt, paracentesis 8lt, levophed on/off, tube feedings, gallbladder with thickened of the doss, IR consulted for tunneled dialysis catheter and cholecystostomy, hydrocortisone is replaced with dexamethasone due shortage, new cultures ordered, nancy was dc, TPN was dc as well, abdominal fluid showed low wbc;rbc ratio SBP improving?, pending culture of abdominal fluid Objective vital signs Vital Sign Date Time Temp Pulse Resp B/P (MAP) Pulse Ox O2 Delivery O2 Flow Rate FiO2 07/17/24 12:32 95 26 126/58 (80) 94 30 07/17/24 08:30 97.5 97.5 07/17/24 07:39 Mechanical Ventilator+ Total Intake and Output 07/16/24 07/16/24 07/17/24 15:00 23:00 07:00 Intake Total 938.75 ml 924 ml 840 ml Output Total 60 ml 100 ml Balance 938.75 ml 864 ml 740 ml medications Current Medications Medications Dose Ordered Sig/Erik Route Start Time Stop Time Status Last Admin Dose Admin Thiamine HCl 100 mg DAILY PO 07/03/24 10:00 07/17/24 09:22 100 MG Haloperidol Lactate 5 mg Q8HP PRN IM 07/04/24 00:00 07/05/24 22:48 5 MG Meropenem 50 ml @ 17 mls/hr DAILY IV 07/08/24 10:00 07/17/24 09:21 17 MLS/HR Vasopressin 20 units/Sodium Chloride 100 ml @ 9 mls/hr Q11H7M IV 07/07/24 12:30 07/10/24 01:52 6 MLS/HR Pantoprazole Sodium 50 ml @ 10 mls/hr Q5H IV 07/07/24 17:15 07/17/24 07:15 10 MLS/HR Lorazepam 1 mg Q5MINP PRN IV 07/08/24 00:00 Vancomycin HCl 0 ml @ 0 mls/hr UD IV 07/08/24 09:30 Potassium Chloride 100 ml @ 50 mls/hr Q2H IV 07/09/24 14:30 07/09/24 18:29 UNV Diagnostic Test (Pha) 1 strip Q6HR 07/10/24 00:00 07/17/24 13:03 1 STRIP Insulin Human Regular FOLLOW SLIDING SCALE Q6HR SC 07/10/24 00:00 07/17/24 13:05 4 UNITS Dextrose 50 ml UD IV 07/10/24 00:00 Vancomycin HCl 0 ml @ 0 mls/hr UD IV 07/10/24 15:30 Cancel Sucralfate 1 gm QID@0600,1130,1700,2200 PO 07/14/24 22:00 07/17/24 09:22 1 GM Norepinephrine Bitartrate 250 ml @ 3.75 mls/hr Q24H IV 07/15/24 08:45 07/17/24 08:25 3.75 MLS/HR Lactulose 30 ml Q6HR PO 07/15/24 12:00 07/17/24 06:14 30 ML Enteral Nutritional Formula 1,000 ml 30ML/HR GT 07/16/24 11:30 07/16/24 16:14 1,000 ML Fentanyl Citrate 250 ml @ 2.5 mls/hr Q24H IV 07/16/24 12:45 07/17/24 08:28 22.5 MLS/HR Fat Emulsion Intravenous 133 ml/Sodium Chloride 40 meq/ Potassium Chloride 50 meq/ Magnesium Sulfate 12 meq/ Multivitamins 10 ml/Insulin Human Regular 30 units/ Amino Acids/ Dextrose 1,431.3 ml @ 60 mls/hr [id number] IV 07/16/24 22:00 07/17/24 21:59 07/16/24 21:29 60 MLS/HR Dexamethasone Sodium Phosphate 10 mg/Dextrose 51 ml @ 204 mls/hr DAILY IV 07/17/24 10:00 07/17/24 10:00 204 MLS/HR Examination General Appearance: intubated HEENT: anisocoria, bleeding through the mouth Respiratory: left IJ cath right HD cath Clear to auscultation, Normal air movement Cardiovascular: Regular rate, Normal S1, Normal S2, No murmurs, no chest wall tenderness Abdominal: ascities Extremities: No clubbing, No cyanosis, No edema, Normal pulses, Skin: Generalized yellow discoloration of skin, petechial/purpuric lesion upper limbs laboratory and microbiology Laboratory Tests 07/17/24 03:25 Test 07/17/24 03:25 Range/Units Serum Glucose 173 H 74-106 mg/dL Microbiology Date/Time Source Procedure Growth Status 07/07/24 09:58 Trachea Gram Stain - Final Complete 07/07/24 09:58 Respiratory Culture - Final Presumptive Jn albicans Complete 07/01/24 17:21 Voided Urine Urine Culture - Final Enterococcus faecium Complete 07/01/24 08:53 Ascities Fluid Gram Stain - Final Complete 07/01/24 08:53 Ascities Fluid Body Fluid Culture - Final Complete 06/30/24 21:52 Blood Blood Culture - Final NO GROWTH AFTER 5 DAYS OF INCUBATION. Complete Problem List/Assessment/Plan Problem List/Assessment/Plan Neurology #Acute metabolic encephalopathy due to hepatic and uremic encephalopathy #GCS deterioration requiring intubation Intubated. Currently sedated with fentanyl drip new head ct scan: no acute changes fentanyl 225 mcg/h Cardiology #Shock, likely multifactorial septic, hypovolemic Levophed on/off dc a line Pulmonary #Acute hypoxic respiratory failure requiring mechanical ventilation #Vent dependent, intubated Vent settings: PEEP 5, TV 500, RR 24, FiO2 30%.Continue ventilator support, monitor ABGs: normal: no vent changes for now Hematology #Severe anemia, likely due to GI bleeding #Thrombocytopenia due to liver failure #DIC 6 URBC, 5 FFP, 7 Units of platelets and 1 unit of cryoprecipitates new labs pm Infectious Disease #Septic shock, likely secondary to UTI and spontaneous bacterial peritonitis #Possible aspiration pneumonia: gram+/gram - Urine culture positive for enterococcus, blood culture no growth x5 days. Sputum culture:positive for jn (colonization): no need of antifungal for now On Meropenem+ vancomycin Continue dual coverage. #SBP improving? Paracentesis: 8 L removed 07/17/24 high WBC in ascitic fluid (at admission). antibiotics ongoing. low wbc:rbc ration GI/Hepatology #Liver cirrhosis secondary to alcohol use #Massive ascites #esophageal varices ruled out #Upper GI bleed, unspecified location #ischemic gastritis #necrotic antrum ulcer #gallbladder wall thickening GI consulted. Octreotide drip, PPI drip, PRBCs transfused. Vitamin K administered. Continue PPI. Trend Hgb. Monitor for rebleeding. DC octeotride lactulose oral continue feedings: nephro 30cc/h EGD: ischemic gastritis + necrotic ulcer in the antrum IR consulted for possible cholecystostomy Renal #CLIFFORD on CKD, likely multifactorial: uremia, hypotension, sepsis #Hyperkalemia #Uremic encephalopathy #Emergency dialysis [facility] initiated HD today 4LT Albumin given IR consulted for tunneled catheter Endocrinology #Hypoglycemia Now stable. Monitor glucose q6h. Nutrition #Severe malnutrition tube feedings dc TPN Code Status: full code Lines/Support Intubated Central line DC A-line Jordan catheter dc Durham catheter 07/17/2024: wbc [id number] hb 8.2 plat 62670 ABG normal, dialysis today 4lt, paracentesis 8lt, levophed on/off, tube feedings, gallbladder with thickened of the doss, IR consulted for tunneled dialysis catheter and cholecystostomy, hydrocortisone is replaced with dexamethasone due shortage, new cultures ordered, nancy was dc, TPN was dc as well, abdominal fluid showed low wbc;rbc ratio SBP improving?, pending culture of abdominal fluid Prophylaxis and Orders DVT: SCD GI: PPI drip (Protonix) Bowel: Lactulose Case discussed with Dr Interiano Plan discussed with: Patient, Other (rn) My Orders My Orders Orders - AUDRA CRANDALL Procedure Category Date Status Time Communication Order ORDERS 07/16/24 Transmitted 18:25 Chest Xray 1 View XY 07/17/24 Resulted 04:00 Abg W/ Co-Ox RT 07/17/24 Logged 04:00 Dexamethasone PHA 07/17/24 In Process Injection (Decadron 10:00 Gallbladder US 07/17/24 Resulted 08:29 Routine Bacterial SHASTA 07/17/24 Logged Culture 12:41 Blood Culture SHASTA 07/17/24 Logged 12:41 Respiratory Culture SHASTA 07/17/24 Logged W/ Gs 12:41 Cytology SHASTA 07/17/24 Transmitted 12:41 Dietary Evaluation Review Comments: 1. Suggest Nepro 1.8 @ 50 ml/hr + 1 pckt ProStat daily; begin @ 10 ml/hr, advance SLOWLY by 10 ml Q12 hrs to goal-rate of 50 ml/hr continuously 2. Provide minimal free water flushes of 30 ml Q6 hrs (120 ml total) for tube patency; adjust PRN/per MD discretion 3. Continue to monitor/replete lytes, especially K, Mag, Phos given high refeeding risk; add 100 mg thiamine daily x 7 days 4. Should lytes drop, maintain current rate of EN and replace to WNL prior to advancing rate of EN further TF Provision: TF at goal to provide 1200 ml total volume, 2160 kcal (+100 kcal via Prostat = 2260 kcal), 97 gm pro (+ 15 gm via Prostat = 112 gm), 15 gm fiber, 1272 mg K, 864 mg Phos, 872 ml H20 (meets 100% est. kcal needs, 100% est. pro needs) Expected Outcomes/Goals: Improved nutritional status, improved hemodynamic stability. Food and Nutrition Intake (Sev: <50% est energy req 5days Fluid Accumulation (Severe): Moderate Fluid Retention Protein Calorie Malnutrition: Severe Is there a minimum of two crit: Yes CC Plasma Assessment Blood Product Administration S: 030 Date of Service: Jul 17, 2024 Billing Provider: ASHLEY INTERIANO MD Common Visit Codes: [id number] CARE 30-74 MIN AUDRA CRANDALL RESIDENT Jul 17, 2024 14:09 ASHLEY INTERIANO MD Jul 17, 2024 22:10
[2024-07-17] MEDS: VANCOMYCIN 500mg/100mL 100 ML IV ONE (14:30)
--- NOTE | 2024-07-17 16:37 | DVHNC2 ---
Other Procedure Procedure Paracentesis A time-out was performed. My hands were washed immediately prior to the procedure. I wore a surgical cap, mask with protective eyewear, sterile gown and sterile gloves throughout the procedure. The area was cleansed and draped in usual sterile fashion using chlorhexidine scrub. The right side of the abdomen was prepped and draped in a sterile fashion using chlorhexidine scrub. . The paracentesis catheter was inserted and advanced with negative pressure until ba colored fluid was aspirated. Approximately 60 mL of ascitic fluid was collected and sent for laboratory analysis. The catheter was then connected to the vaccutainer and 8 liters of additional ascitic fluid were drained. The catheter was removed and no leaking was noted. A bandaid was placed over the puncture wound. The patient tolerated the procedure well without any immediate complications. Date of Service: Jul 17, 2024 Billing Provider: ASHLEY GALAN MD Common Visit Codes: PROCEDURE ONLY Procedure Codes: [id number] W/IMAGING AUDRA CRANDALL RESIDENT Jul 17, 2024 16:37 ASHLEY GALAN MD Jul 17, 2024 21:00
[2024-07-17 16:53] LABS: Body Fluid Red Blood Cells 1544 CUMM (0-2000); Body Fluid White Blood Cells 218 CUMM (0-200)
--- NOTE | 2024-07-17 18:19 | DVHPN2 ---
Progress Note - Dictate Date Seen: Jul 17, 2024 Has the PT tested + for MRSA If YES, has PT been informed?: No Medical Necessity Reason Pt with a Central, PICC or Fol: Yes Reason for durham catheter: Total Immobilization Subjective Mr. Juarez is a 53 years old right-handed gentleman with a history of liver failure, liver cirrhosis, alcoholism, prostatic cancer, anxiety, hepatorenal syndrome, he came to the hospital on 06/30/24 because of for a few days. In the hospital, the patient was found to have severe jaundice, liver failure, coagulopathy, urinary tract infection, sepsis, kidney failure. On 07/08/2023, the patient was had code assistance because of hypotension and he was nonresponsive, the patient was resuscitated, intubated and transferred to ICU I saw him on 11/03/2020 for seizure I have seen and examined the patient, he is sedated, eyes are open, responsive to touch but not to verbal stimuli, no extremity movement He has ecchymosis in the skin On 07/17/2024, the patient had paracentesis with 8 L of ascites removed. He had hemodialysis with 4 L fluid removed Pupil are round, equal, slightly reactive to lights on 07/14/24 Pupil are round, reactive to lights on 07/15/24, Rt: 6-7mm, Rt: 8mm, later Lt: 4mm, Rt: 3-4mm. No associated abnormal vascular dilatation or skin secretion Pupil are round, 7-8mm, reactive to lights on 07/16/24, the left-sided looks slightly bigger. 07/17/24: Rt: 3-4mm. Lt: 7mm, Rt: 6-7mm. No associated abnormal vascular dilatation or skin secretion Fentanyl 225 mcg/hour, levo 2 mcg/min Hearing culture, 07/01/2024: Enterococcus faecium Blood culture, 06/30/2024: No growth UDS, 07/01/2024: Negative Plasma alcohol, 06/30/2024: 3.6 Urinalysis, 07/01/2024: WBC: 3958, urine leukocyte esterase: 3+ ABG, 07/07/2024: Combined metabolic and respiratory acidosis, respiratory acidosis WBC/HB/PLT/MCV, 07/07/2024: 19.5/8.2/80/100.9, 07/09/2024: 18. 1/6.8/24/97.7, 07/10/2024: 10.2/7.3/19/90.9 PT/INR/PTT, 07/07/2024: 27.2/2.85/56.7, 07/10/2024: 20.6/2.09/54.2 K 07/07/2024: 6.3 BUN/CR, 07/07/2024: 88/7.62 TBI/AST/ALT/AP, 07/07/2024: 23.5/263/60/73 Lactic acid, 07/07/2024: 6.9, 4.9 Ammonia, 11/02/2020: 98, 11/03/2020: 109, 95, 11/07/2020: 95, 06/30/2024: 54, 07/03/2024: 11, 07/07/2024: 33 Vitamin B12, 07/01/24: 2308 Folic acid, 07/01/24: 11.87 EEG, : [id number] abnormal EEG Chest x-ray, 07/07/2024: Right basilar opacity. Lines and tubes in appropriate position. CT head, 08/18/2020: No acute intracranial abnormality identified. Mild cerebral volume loss. Cerebral atherosclerosis CT head, 06/30/2024: No acute intracranial abnormality CT head, 07/14/2024: No acute intracranial abnormality identified CTA, 11/05/2020: No intracranial hemorrhage vital signs Vital Sign Date Time Temp Pulse Resp B/P (MAP) Pulse Ox O2 Delivery O2 Flow Rate FiO2 07/17/24 17:48 30 07/17/24 17:48 100 07/17/24 17:41 97.5 97.5 07/17/24 17:30 12 97 07/17/24 07:39 Mechanical Ventilator+ Total Intake and Output 07/16/24 07/16/24 07/17/24 15:00 23:00 07:00 Intake Total 938.75 ml 924 ml 840 ml Output Total 60 ml 100 ml Balance 938.75 ml 864 ml 740 ml medications Current Medications Medications Dose Ordered Sig/Erik Route Start Time Stop Time Status Last Admin Dose Admin Thiamine HCl 100 mg DAILY PO 07/03/24 10:00 07/17/24 09:22 100 MG Haloperidol Lactate 5 mg Q8HP PRN IM 07/04/24 00:00 07/05/24 22:48 5 MG Meropenem 50 ml @ 17 mls/hr DAILY IV 07/08/24 10:00 07/17/24 09:21 17 MLS/HR Vasopressin 20 units/Sodium Chloride 100 ml @ 9 mls/hr Q11H7M IV 07/07/24 12:30 07/10/24 01:52 6 MLS/HR Pantoprazole Sodium 50 ml @ 10 mls/hr Q5H IV 07/07/24 17:15 07/17/24 16:04 10 MLS/HR Lorazepam 1 mg Q5MINP PRN IV 07/08/24 00:00 Vancomycin HCl 0 ml @ 0 mls/hr UD IV 07/08/24 09:30 Potassium Chloride 100 ml @ 50 mls/hr Q2H IV 07/09/24 14:30 07/09/24 18:29 UNV Diagnostic Test (Pha) 1 strip Q6HR 07/10/24 00:00 07/17/24 17:57 1 STRIP Insulin Human Regular FOLLOW SLIDING SCALE Q6HR SC 07/10/24 00:00 07/17/24 17:58 4 UNITS Dextrose 50 ml UD IV 07/10/24 00:00 Vancomycin HCl 0 ml @ 0 mls/hr UD IV 07/10/24 15:30 Cancel Sucralfate 1 gm QID@0600,1130,1700,2200 PO 07/14/24 22:00 07/17/24 17:59 1 GM Norepinephrine Bitartrate 250 ml @ 3.75 mls/hr Q24H IV 07/15/24 08:45 07/17/24 08:25 3.75 MLS/HR Lactulose 30 ml Q6HR PO 07/15/24 12:00 07/17/24 17:59 30 ML Enteral Nutritional Formula 1,000 ml 30ML/HR GT 07/16/24 11:30 07/16/24 16:14 1,000 ML Fentanyl Citrate 250 ml @ 2.5 mls/hr Q24H IV 07/16/24 12:45 07/17/24 16:06 22.5 MLS/HR Fat Emulsion Intravenous 133 ml/Sodium Chloride 40 meq/ Potassium Chloride 50 meq/ Magnesium Sulfate 12 meq/ Multivitamins 10 ml/Insulin Human Regular 30 units/ Amino Acids/ Dextrose 1,431.3 ml @ 60 mls/hr [id number] IV 07/16/24 22:00 07/17/24 21:59 07/16/24 21:29 60 MLS/HR Dexamethasone Sodium Phosphate 10 mg/Dextrose 51 ml @ 204 mls/hr DAILY IV 07/17/24 10:00 07/17/24 10:00 204 MLS/HR objective The patient is well-nourished and well-developed with no distress. The patient is intubated. He has jaundice Bilateral hammertoes and high-arched foot MENTAL STATUS: Subjective CRANIAL NERVES: Pupils are round and reactive.There are corneal reflexes and doll's eyes phenomenon. No signs of facial weakness. There are gagging or coughing reflexes. There was no abnormal skin secretion, abnormal vascular dilatation SENSATION: No responses to pain stimuli. MOTOR: Normal tone in the upper and lower extremity. Normal muscle bulk. No fasciculations. No spontaneous extremity movement REFLEXES: Deep tendon reflexes are symmetrical. No pathological reflexes. CEREBELLAR/COORDINATION: Deferred GAIT/STATION: deferred laboratory and microbiology Laboratory Tests 07/17/24 03:25 Test 07/17/24 03:25 Range/Units Serum Glucose 173 H 74-106 mg/dL Problem List Altered mental status Metabolic cephalopathy Hepatic encephalopathy Hypoxic encephalopathy UTI, sepsis, septic shock Liver failure History of Alcoholism Jaundice Respiratory failure Coagulopathy/oral bleeding Thrombocytopenia Anemia GI on case Anisocoria with left-sided slightly bigger, new since 07/13/2024 according to the nurse, uncertain clinical significance Assessment/Plan Monitoring Supportive treatment ICU care Follow-up labs Stabilize vitals/pressor drip Respiratory support/vent management Thiamine supplementation Lactulose Nephrology on case Pulmonology on case GI on case This medical document was created using an electronic medical record system with [employer] dictation system. Although this document has been carefully reviewed, there may still be some phonetic and typographical errors. These areas are purely typographical due to imperfections of the software programs, and do not reflect any compromise in the patient's medical care. Prognosis guarded Dietary Evaluation Review Comments: 1. Suggest Nepro 1.8 @ 50 ml/hr + 1 pckt ProStat daily; begin @ 10 ml/hr, advance SLOWLY by 10 ml Q12 hrs to goal-rate of 50 ml/hr continuously 2. Provide minimal free water flushes of 30 ml Q6 hrs (120 ml total) for tube patency; adjust PRN/per MD discretion 3. Continue to monitor/replete lytes, especially K, Mag, Phos given high refeeding risk; add 100 mg thiamine daily x 7 days 4. Should lytes drop, maintain current rate of EN and replace to WNL prior to advancing rate of EN further TF Provision: TF at goal to provide 1200 ml total volume, 2160 kcal (+100 kcal via Prostat = 2260 kcal), 97 gm pro (+ 15 gm via Prostat = 112 gm), 15 gm fiber, 1272 mg K, 864 mg Phos, 872 ml H20 (meets 100% est. kcal needs, 100% est. pro needs) Expected Outcomes/Goals: Improved nutritional status, improved hemodynamic stability. Food and Nutrition Intake (Sev: <50% est energy req 5days Fluid Accumulation (Severe): Moderate Fluid Retention Protein Calorie Malnutrition: Severe Is there a minimum of two crit: Yes Plan discussed with: Other CC Plasma Assessment Blood Product Administration S: [id number] ERIC ARIAS MD Jul 17, 2024 18:19
[2024-07-17 19:50] LABS: Hemoglobin 7.3 g/dL (13.5-17.5); Mean Corpuscular Hemoglobin 30.8 pg (28.0-32.0); Red Blood Cells 2.37 10^6/uL (4.5-5.90)
[2024-07-17 19:51] LABS: Hematocrit 21.3 % (41.0-53.0); Mean Corpuscular Hgb Conc. 34.4 g/dL (32.0-36.0); Mean Corpuscular Volume 89.6 fL (80.0-100.0); Red Cell Distribution Width 16.7 % (11.8-14.3); White Blood Cell 27.8 10^3/uL (4.4-10.8)
[2024-07-17 19:52] LABS: Platelet Count (auto) 80 10^3/uL (140-450)
[2024-07-17 19:53] LABS: Basophils % (manual) 0 (0.0-2.0); Eosinophils % (manual) 0 (0-7); Promyelocytes % 0; Reactive Lymphocytes 0
[2024-07-17 21:08] LABS: Band Neutrophils % (manual) 8; Blast Cells 4; Lymphocytes % (manual) 10 (10.0-50.0); Metamyelocytes % 5; Monocytes % (manual) 13 (0-12); Myelocytes % 2; Platelet Estimate Decreased
[2024-07-17 21:11] LABS: INR 2.18 (0.9-1.15); Partial Thromboplastin Time 58.3 SEC (24.5-34.5); Prothrombin Time 21.4 sec (9.3-11.8)
[2024-07-17] MEDS ORDERED: TPN*HIGH CONC* PER PHARMACY IV NR (22:00)
[2024-07-18] VITALS (117 sets, daily range): BP systolic 78–129; BP diastolic 40–67; PULSE 95–111; RESP 18–28; TEMP 97–98.5; O2SAT 97–100
--- NOTE | 2024-07-18 05:46 | DVHPN2 ---
Progress Note - Dictate Date Seen: Jul 17, 2024 Has the PT tested + for MRSA If YES, has PT been informed?: No Medical Necessity Reason Pt with a Central, PICC or Fol: Yes The following are medically ne: Durham Catheter Reason for durham catheter: Strict I&O, Total Immobilization Subjective Patient seen and examined at bedside. Intubated on mechanical ventilator. Overnight events reviewed. vital signs Vital Sign Date Time Temp Pulse Resp B/P (MAP) Pulse Ox O2 Delivery O2 Flow Rate FiO2 07/18/24 05:34 30 07/18/24 05:34 98 07/18/24 05:22 118/56 07/18/24 04:19 24 100 07/18/24 04:15 97.5 97.5 07/17/24 20:15 Mechanical Ventilator+ Total Intake and Output 07/17/24 07/17/24 07/18/24 15:00 23:00 07:00 Intake Total 331.25 ml 352.5 ml 877.75 ml Output Total 8100 ml Balance 331.25 ml -7747.5 ml 877.75 ml medications Current Medications Medications Dose Ordered Sig/Erik Route Start Time Stop Time Status Last Admin Dose Admin Thiamine HCl 100 mg DAILY PO 07/03/24 10:00 07/17/24 09:22 100 MG Haloperidol Lactate 5 mg Q8HP PRN IM 07/04/24 00:00 07/05/24 22:48 5 MG Meropenem 50 ml @ 17 mls/hr DAILY IV 07/08/24 10:00 07/17/24 09:21 17 MLS/HR Vasopressin 20 units/Sodium Chloride 100 ml @ 9 mls/hr Q11H7M IV 07/07/24 12:30 07/10/24 01:52 6 MLS/HR Pantoprazole Sodium 50 ml @ 10 mls/hr Q5H IV 07/07/24 17:15 07/18/24 02:19 10 MLS/HR Lorazepam 1 mg Q5MINP PRN IV 07/08/24 00:00 Vancomycin HCl 0 ml @ 0 mls/hr UD IV 07/08/24 09:30 Potassium Chloride 100 ml @ 50 mls/hr Q2H IV 07/09/24 14:30 07/09/24 18:29 UNV Diagnostic Test (Pha) 1 strip Q6HR 07/10/24 00:00 07/18/24 05:16 1 STRIP Insulin Human Regular FOLLOW SLIDING SCALE Q6HR SC 07/10/24 00:00 07/18/24 05:22 2 UNITS Dextrose 50 ml UD IV 07/10/24 00:00 Vancomycin HCl 0 ml @ 0 mls/hr UD IV 07/10/24 15:30 Cancel Sucralfate 1 gm QID@0600,1130,1700,2200 PO 07/14/24 22:00 07/18/24 05:16 1 GM Norepinephrine Bitartrate 250 ml @ 3.75 mls/hr Q24H IV 07/15/24 08:45 07/17/24 08:25 3.75 MLS/HR Lactulose 30 ml Q6HR PO 07/15/24 12:00 07/18/24 05:16 30 ML Enteral Nutritional Formula 1,000 ml 30ML/HR GT 07/16/24 11:30 07/16/24 16:14 1,000 ML Fentanyl Citrate 250 ml @ 2.5 mls/hr Q24H IV 07/16/24 12:45 07/18/24 05:22 22.5 MLS/HR Dexamethasone Sodium Phosphate 10 mg/Dextrose 51 ml @ 204 mls/hr DAILY IV 07/17/24 10:00 07/17/24 10:00 204 MLS/HR objective Gen.: Patient lying in bed in medical ICU. Intubated on mechanical ventilator. Head: Normocephalic, atraumatic. Eyes: PERRLA. Ears: Normal external anatomy. Throat: Endotracheal tube and orogastric tube in place. Neck: Supple, trachea midline. Chest: Transmitted breath sounds bilaterally. Decreased air entry bilaterally. No wheezing. Bibasilar crackles. Cardiovascular: Positive S1, positive S2. Regular rate and rhythm. Abdomen: Positive bowel sounds in all 4 quadrants. Soft, nontender, nondistended. : Durham in place. Normal external genitalia. Rectal: Deferred. Skin: Warm, dry. Intact. Extremities: 2+ radial pulses bilaterally. No lower extremity edema. Neuro: Off sedation laboratory and microbiology Laboratory Tests 07/17/24 19:00 07/17/24 03:25 Test 07/17/24 03:25 Range/Units Serum Glucose 173 H 74-106 mg/dL Assessment/Plan Impression: Acute hypercarbic respiratory failure On mechanical ventilator Acute metabolic encephalopathy Shock Liver cirrhosis Hx of ETOH abuse Thrombocytopenia Events: Remains on vent support On AC mode; RR 24, VT 500, PEEP 5, FiO2 30% On Fentanyl drip. Pressors if necessary for hemodynamic support On Levophed and Tino-Synephrine Titrate to keep mean arterial pressure greater than 65 mmHg. On midodrine for blood pressure support S/p hemodialysis, removed 4 liters Gallbladder ultrasound showed hepatic cirrhosis w/ large volume ascites. Gallbladder sludge and nonspecific gallbladder wall thickening S/p paracentesis today with removal of 8 liters. Received albumin. ABG reviewed, compensated Chest x-ray reveals bibasilar atelectasis similar to prior. Devices in place. Continue antibiotics Elevated wbc - 27.8 K Continue steroids - dexamethasone Continue Protonix drip Tube feeds for nutritional support Family discussion regarding goals of care. Monitor hemoglobin Monitor platelets d/t thrombocytopenia NGT in place On lactulose EGD revealed extensive ulceration of gastric body and antrum with necrosis, hiatal hernia, erosive esophagitis. Awaiting biopsy results. GI recs appreciated HD per Nephrology Monitor renal function Monitor electrolytes. Supplement as necessary. Monitor ins and outs. Accu-Cheks, ISS. S/p paracentesis on 07/13/24 Labs and imaging reviewed. Rest of plan as noted below. Plan: s/p intubation on mechanical ventilator. On AC mode; RR 24, VT 500, PEEP 5, FiO2 30% Titrate FIO2 to keep O2 saturation above 90%. VAP bundle. Daily ABG and CXR while intubated Off sedation Continue antibiotics. Protonix drip GI recommendations appreciated Pressors as necessary for hemodynamic support Titrate to keep mean arterial pressure greater than 65 mmHg. Accu-Cheks, ISS PRN. Monitor renal function Monitor electrolytes. Supplement as necessary. Monitor ins and outs. Maintain euvolemia. GI prophylaxis. DVT prophylaxis. Prognosis: Poor given patient's multiple co-morbidities. Condition: Critical Rest of plan per hospitalist and other consultants. A total of 35 minutes of critical care time was spent reviewing the patient record, examining the patient, making a diagnostic and therapeutic plan, discussing this plan with the medical personnel, following up on diagnostic studies and following the patient for clinical stability excluding any and all procedures. At least 50% of this time was spent in direct, [id number] contact. Thank you Dr. Ovalle for allowing me to participate in this patient's care. Further recommendations will depend on the patient's clinical course. Please do not hesitate to contact me if you have any questions or concerns. This medical document was created using an electronic medical record system with [employer] system. Although these documentations are being carefully reviewed, there may still be some phonetic and typographical changes. The errors are purely typographical, due to imperfection on the software program, and do not reflect any compromise in the patient's medical care. Dietary Evaluation Review Comments: 1. Suggest Nepro 1.8 @ 50 ml/hr + 1 pckt ProStat daily; begin @ 10 ml/hr, advance SLOWLY by 10 ml Q12 hrs to goal-rate of 50 ml/hr continuously 2. Provide minimal free water flushes of 30 ml Q6 hrs (120 ml total) for tube patency; adjust PRN/per MD discretion 3. Continue to monitor/replete lytes, especially K, Mag, Phos given high refeeding risk; add 100 mg thiamine daily x 7 days 4. Should lytes drop, maintain current rate of EN and replace to WNL prior to advancing rate of EN further TF Provision: TF at goal to provide 1200 ml total volume, 2160 kcal (+100 kcal via Prostat = 2260 kcal), 97 gm pro (+ 15 gm via Prostat = 112 gm), 15 gm fiber, 1272 mg K, 864 mg Phos, 872 ml H20 (meets 100% est. kcal needs, 100% est. pro needs) Expected Outcomes/Goals: Improved nutritional status, improved hemodynamic stability. Food and Nutrition Intake (Sev: <50% est energy req 5days Fluid Accumulation (Severe): Moderate Fluid Retention Protein Calorie Malnutrition: Severe Is there a minimum of two crit: Yes Plan discussed with: Other (RN) Critical Care Time(min): 35 CC Plasma Assessment Blood Product Administration S: [id number] JOAQUÍN VILLAFANA MD Jul 18, 2024 05:46
--- NOTE | 2024-07-18 05:49 | DVH ---
CHEST RADIOGRAPH Indication: dyspnea Technique: Single frontal view of the chest was obtained Comparison: XY CHEST XRAY 1 VIEW on DOS: 07/17/24, XY CHEST PORTABLE on DOS: 07/16/24, XY CHEST PORTABL E on DOS: 07/15/24 IMPRESSION: Heart appears stable in size. Endotracheal tube, enteric tube, venous lines appear stable and satisfa ctory position. No sizable effusion or pneumothorax. No significant interval change.
[2024-07-18 07:21] LABS: Base Excess -5.3 mmol/L (-2.0-3.0)
--- NOTE | 2024-07-18 08:43 | DVHPN2 ---
Reviewed: H&P Changes from previous H/P or p: No Changes General: Per HPI Objective Vitals Vital Signs Date Time Temp Pulse Resp B/P (MAP) Pulse Ox O2 Delivery O2 Flow Rate FiO2 07/18/24 07:56 98.5 102 24 126/65 98.5 07/18/24 07:48 30 07/18/24 07:45 100 07/17/24 20:15 Mechanical Ventilator+ Intake/Output Intake and Output 07/18/24 07:00 Intake Total 1605.25 ml Output Total 8100 ml Balance -6494.75 ml Intake Oral 150 ml IV Total 896.25 ml Tube Feeding 125 ml Blood Product 434 ml Stool Total 100 ml Drainage Total 8000 ml Exam A 53-year-old male with past medical history of liver cirrhosis (due to alcohol use disorder)and CKD brought to the hospital due to altered mental status. Family were called, but the didnt answer, all the info was taken to the medical records Per EMS reports patient was taken from home and per family member he has been altered since 1 week which has progressively worsened. He was admitted on 10/31/2020 and DVT H due to GI bleeding, EGD was performed, showed gastritis with no active bleeding. PMHx: Liver cirrhosis due to alcohol use disorder, CKD Social history: Has history of alcohol use disorder 07/01/2024: paracentesis done 7LT, multiple wbc in the ascitic fluid, labile BPs, midodrine and octeotride started, zosyn and linezolid due to sepsis and possible SBP, start levophed if MAP below 60, fluids were given, protonix BID 07/02/2024: renal function is declining, hb is stable, FOB neg, protonix drip started, bumex drip started 07/06/2024: urine culture positive for enterococcus, patient is on zosyn and linezolid, hyperkalemia 5.8 07/07/2024: At around 9 a.m., patient was found gasping for air with MAP of 53. Rapid response was called. Mental status deteriorated (GCS drop), requiring intubation. Central line and Jordan catheter were placed. Started on vasopressors: Levophed up to 30 mcg/min and Vasopressin 0.04 U/min. Emergent dialysis was initiated due to uremia and hyperkalemia (K 6.3, later improved to 4.1). ABG showed compensated respiratory status. Patient was found to be hypoglycemic (glucose 16) during event. He is now sedated on fentanyl drip. Labs showed Hgb 6.6likely due to GI bleed; received blood products, Vitamin K, and PPI drip. Prognosis remains poor, and case was re-discussed with family; full code until now 07/08/2024: yesterday HD filtration only, platelets trending down, Dc linezolid, start vancomycin, start low dose propofol, levophed off, still on vasopressin, , GI ok with NG tube, minimal vent settings (fio2 40%) 07/09/2024: 1 apheresis and 1 rbc given, still bloody secretions from mouth, albumin and bumex given, clinimix started by GI, min vent settings, still on vasopressin, octreotide and protonix drip, HD today 07/13/2024: Pt is on TPN, so far in this admission: 6 URBC, 4 FFP, 5 Units of platelets and 1 unit of cryoprecipitates given, dialysis yesterday 2LT, new paracentesis on 07/12/2024 7.8 Lt, jn is growing in the sputum (colonization), hb 8.2 plat [id number] ABG: mild respiratory acidosis, levophed 4 mcg, protonix and octreotide drip, vancomycin and meropenem, no fevers, minimal vent settings 07/14/2024: hb 8,2 plat 22, ABG respiratory acidosis pH 7.27 pCO2 56.2 bicarb 25, tidal volume was increased 500, possible scope today, frozen plasma and platelets ordered, right now patient is getting dialysis, Levophed during the night 2 mcg, bleeding through the G-tube 350 cc, Durham 200cc urine, no fevers, head ct scan will be ordered after scope 07/15/2024: hb 8.3 plat 25 ABG respiratory alkalosis RR 24 TV 500, scope yesterday:antrum with necrosis and overlying eschar most prominent in the antrum causing oozing and pylorus, dialysis yesterday 3LT out, levophed 4 mcg, output in the gtube 150cc, normal head ct scan 07/16/2024: hb 7.9 plat [id number] ABG mild respiratory acidosis RR 24 TV 500, not able to go down on sedation today, dialysis yesterday and today 3 LT, levophed off pm, output g tube 100 cc, dc durham, start tube feedings, discussion with the sister about possible tracheostomy and peg tube, she agreed on both, she is coming next week 07/17/2024: wbc 51092 hb 8.2 plat 44901 ABG normal, dialysis today 4lt, paracentesis 8lt, levophed on/off, tube feedings, gallbladder with thickened of the doss, IR consulted for tunneled dialysis catheter and cholecystostomy, hydrocortisone is replaced with dexamethasone due shortage, new cultures ordered, nancy was dc, TPN was dc as well, abdominal fluid showed low wbc;rbc ratio SBP improving?, pending culture of abdominal fluid 07/18/2024 - s/p para yest. 8L. plan for trach, peg, permacath/tunnel cath during comig week. still appears to have more ascites. will continue primary team plan. got pRBC, will repeat labs (pending). noting worsening bandemia yesterday. stable VS on vasopressor. [facility]/5/%.. Medications Current Medications Medications Dose Ordered Sig/Erik Route Start Time Stop Time Status Last Admin Dose Admin Thiamine HCl 100 mg DAILY PO 07/03/24 10:00 07/18/24 07:30 100 MG Haloperidol Lactate 5 mg Q8HP PRN IM 07/04/24 00:00 07/05/24 22:48 5 MG Meropenem 50 ml @ 17 mls/hr DAILY IV 07/08/24 10:00 07/18/24 07:31 17 MLS/HR Vasopressin 20 units/Sodium Chloride 100 ml @ 9 mls/hr Q11H7M IV 07/07/24 12:30 07/10/24 01:52 6 MLS/HR Pantoprazole Sodium 50 ml @ 10 mls/hr Q5H IV 07/07/24 17:15 07/18/24 07:31 10 MLS/HR Lorazepam 1 mg Q5MINP PRN IV 07/08/24 00:00 Vancomycin HCl 0 ml @ 0 mls/hr UD IV 07/08/24 09:30 Potassium Chloride 100 ml @ 50 mls/hr Q2H IV 07/09/24 14:30 07/09/24 18:29 UNV Diagnostic Test (Pha) 1 strip Q6HR 07/10/24 00:00 07/18/24 05:16 1 STRIP Insulin Human Regular FOLLOW SLIDING SCALE Q6HR SC 07/10/24 00:00 07/18/24 05:22 2 UNITS Dextrose 50 ml UD IV 07/10/24 00:00 Vancomycin HCl 0 ml @ 0 mls/hr UD IV 07/10/24 15:30 Cancel Sucralfate 1 gm QID@0600,1130,1700,2200 PO 07/14/24 22:00 07/18/24 05:16 1 GM Norepinephrine Bitartrate 250 ml @ 3.75 mls/hr Q24H IV 07/15/24 08:45 07/17/24 08:25 3.75 MLS/HR Lactulose 30 ml Q6HR PO 07/15/24 12:00 07/18/24 05:16 30 ML Enteral Nutritional Formula 1,000 ml 30ML/HR GT 07/16/24 11:30 07/16/24 16:14 1,000 ML Fentanyl Citrate 250 ml @ 2.5 mls/hr Q24H IV 07/16/24 12:45 07/18/24 05:22 22.5 MLS/HR Dexamethasone Sodium Phosphate 10 mg/Dextrose 51 ml @ 204 mls/hr DAILY IV 07/17/24 10:00 07/18/24 07:30 204 MLS/HR Laboratory Results Laboratory Tests 07/17/24 03:25 07/17/24 19:00 Coagulation Test 07/17/24 19:00 Prothrombin Time 21.4 sec (9.3-11.8) H Prothrombin Time INR 2.18 (0.9-1.15) H Activated Partial Thromboplast Time 58.3 SEC (24.5-34.5) H Fibrinogen 67 mg/dL (177-375) *L Urinalysis Test 07/01/24 17:21 07/12/24 12:40 Urine WBC Clumps Present /hpf (None Seen) Urine Transitional Epithelial Cells Few /hpf (<2) Urine Mucus Few (None Seen) Urine Creatinine 83.04 mg/dL (30.0-125.0) Urine Sodium 29 mmol/L (40-220) L Urine Total Protein 49.2 mg/dL (1-14) H Urine Color Dark-yellow (Yellow) Urine Clarity Turbid (Clear) H Urine pH 8.5 (5.0-9.0) Urine Specific Powers 1.014 (1.001-1.035) Urine Protein 3+ (Negative) H Urine Ketones Negative (Negative) Urine Blood 3+ /uL (Negative) H Urine Nitrite Negative (Negative) Urine Bilirubin 2+ (Negative) Urine Urobilinogen Normal mg/dL (Negative) Urine Leukocyte Esterase Negative /uL (Negative) Urine RBC 789 /hpf (0 - 3) Urine Microscopic WBC 6 /HPF (0-3) H Urine Squamous Epithelial Cells Few /hpf (<5) Urine Bacteria Few /hpf (None Seen) H Urine Glucose 2+ mg/dL (Normal) H Blood Gas Results Test 07/18/24 07:17 Arterial Blood pH 7.337 (7.350-7.450) FiO2 % 30.0 Microbiology Microbiology Date/Time Source Procedure Growth Status 07/07/24 09:58 Trachea Gram Stain - Final Complete 07/07/24 09:58 Respiratory Culture - Final Presumptive Jn albicans Complete 07/01/24 17:21 Voided Urine Urine Culture - Final Enterococcus faecium Complete 07/01/24 08:53 Ascities Fluid Gram Stain - Final Complete 07/01/24 08:53 Ascities Fluid Body Fluid Culture - Final Complete 06/30/24 21:52 Blood Blood Culture - Final NO GROWTH AFTER 5 DAYS OF INCUBATION. Complete Labs and/or images reviewed: Labs reviewed by me, Image(s) reviewed by me Assessment/Plan Assessment/Plan Neurology #Acute metabolic encephalopathy due to hepatic and uremic encephalopathy #GCS deterioration requiring intubation Intubated. Currently sedated with fentanyl drip new head ct scan: no acute changes fentanyl 225 mcg/h Cardiology #Shock, likely multifactorial septic, hypovolemic Levophed on/off dc a line Pulmonary #Acute hypoxic respiratory failure requiring mechanical ventilation #Vent dependent, intubated Vent settings: PEEP 5, TV 500, RR 24, FiO2 30%.Continue ventilator support, monitor ABGs: normal: no vent changes for now Hematology #Severe anemia, likely due to GI bleeding #Thrombocytopenia due to liver failure #DIC 6 URBC, 5 FFP, 7 Units of platelets and 1 unit of cryoprecipitates - 07/18/24 new labs pm Infectious Disease #Septic shock, likely secondary to UTI and spontaneous bacterial peritonitis #Possible aspiration pneumonia: gram+/gram - Urine culture positive for enterococcus, blood culture no growth x5 days. Sputum culture:positive for jn (colonization): no need of antifungal for now On Meropenem+ vancomycin Continue dual coverage. #SBP improving? Paracentesis: 8 L removed 07/17/24 high WBC in ascitic fluid (at admission). antibiotics ongoing. low wbc:rbc ration GI/Hepatology #Liver cirrhosis secondary to alcohol use #Massive ascites #esophageal varices ruled out #Upper GI bleed, unspecified location #ischemic gastritis #necrotic antrum ulcer #gallbladder wall thickening GI consulted. Octreotide drip, PPI drip, PRBCs transfused. Vitamin K administered. Continue PPI. Trend Hgb. Monitor for rebleeding. DC octeotride lactulose oral continue feedings: nephro 30cc/h EGD: ischemic gastritis + necrotic ulcer in the antrum IR consulted for possible cholecystostomy Renal #CLIFFORD on CKD, likely multifactorial: uremia, hypotension, sepsis #Hyperkalemia #Uremic encephalopathy #Emergency dialysis CVVH initiated HD yest 07/17 4LT Albumin given IR consulted for tunneled catheter Endocrinology #Hypoglycemia Now stable. Monitor glucose q6h. Nutrition #Severe malnutrition tube feedings OG dc TPN Code Status: full code Lines/Support Intubated vent Central line (L IJ cvc, R IJ jordan HD) DC A-line Jordan catheter dc Durham catheter 07/18/2024 - s/p para yest. 8L. plan for trach, peg, permacath/tunnel cath during comig week. still appears to have more ascites. will continue primary team plan. got pRBC, will repeat labs (pending). noting worsening bandemia yesterday. stable VS on vasopressor. intubated mech vent VC500/24/5/30%.. Plan discussed with: Other My Orders Orders - ALANNA DUARTE MD Procedure Category Date Status Time Ammonia LAB 07/18/24 Transmitted 08:32 Date of Service: Jul 18, 2024 Billing Provider: ALANNA DUARTE MD Common Visit Codes: [id number] CARE 30-74 MIN ALANNA DUARTE MD Jul 18, 2024 08:43
[2024-07-18 10:31] LABS: Platelet Count (auto) 109 10^3/uL (140-450)
[2024-07-18 10:34] LABS: Hemoglobin 7.3 g/dL (13.5-17.5); Mean Corpuscular Hemoglobin 31.2 pg (28.0-32.0); Mean Corpuscular Hgb Conc. 34.6 g/dL (32.0-36.0); Mean Corpuscular Volume 90.3 fL (80.0-100.0); Red Blood Cells 2.32 10^6/uL (4.5-5.90); Red Cell Distribution Width 15.7 % (11.8-14.3)
[2024-07-18 10:38] LABS: White Blood Cell 35.7 10^3/uL (4.4-10.8)
[2024-07-18 10:39] LABS: Basophils % (manual) 0 (0.0-2.0); Blast Cells 0; Eosinophils % (manual) 0 (0-7); Promyelocytes % 0; Reactive Lymphocytes 0
[2024-07-18 10:42] LABS: Albumin 3.6 g/dL (3.2-4.8); Alkaline Phosphatase 87 U/L (46-116); Anion Gap 16 (5-15); Carbon Dioxide 22 mmol/L (20-31); Chloride 101 mmol/L (98-107); Magnesium 2.4 mg/dL (1.6-2.6); Potassium 4.9 mmol/L (3.5-5.1); Sodium 139 mmol/L (136-145)
[2024-07-18 10:43] LABS: Phosphorus 4.9 mg/dL (2.4-5.1)
[2024-07-18 10:44] LABS: BUN/Creatinine Ratio 25.1 (10.0-20.0)
[2024-07-18 10:45] LABS: Alanine Aminotransferase 70 U/L (7-40); Aspartate Aminotransferase 105 U/L (13-40); Calcium 10.8 mg/dL (8.7-10.4); Glucose 181 mg/dL (74-106); INR 1.94 (0.9-1.15); Prothrombin Time 19.3 sec (9.3-11.8); Total Protein 5.2 g/dL (5.7-8.2)
[2024-07-18 10:46] LABS: Blood Urea Nitrogen 81 mg/dL (9-23)
[2024-07-18 11:14] LABS: Band Neutrophils % (manual) 4; Lymphocytes % (manual) 13 (10.0-50.0); Metamyelocytes % 1; Monocytes % (manual) 16 (0-12); Myelocytes % 1
[2024-07-18 11:16] LABS: Anisocytosis Slight; Platelet Estimate Decreased
--- NOTE | 2024-07-18 12:21 | DVHPN2 ---
Progress Note - Dictate Date Seen: Jul 18, 2024 Has the PT tested + for MRSA If YES, has PT been informed?: No Medical Necessity Reason Pt with a Central, PICC or Fol: Yes The following are medically ne: Durham Catheter Reason for durham catheter: Strict I&O, Total Immobilization Subjective No significant events overnight vital signs Vital Sign Date Time Temp Pulse Resp B/P (MAP) Pulse Ox O2 Delivery O2 Flow Rate FiO2 07/18/24 12:05 113/59 07/18/24 10:30 102 22 100 07/18/24 10:14 30 07/18/24 08:00 Mechanical Ventilator+ 07/18/24 07:56 98.5 98.5 Total Intake and Output 07/17/24 07/17/24 07/18/24 15:00 23:00 07:00 Intake Total 331.25 ml 352.5 ml 965.25 ml Output Total 8100 ml Balance 331.25 ml -7747.5 ml 965.25 ml medications Current Medications Medications Dose Ordered Sig/Erik Route Start Time Stop Time Status Last Admin Dose Admin Thiamine HCl 100 mg DAILY PO 07/03/24 10:00 07/18/24 07:30 100 MG Haloperidol Lactate 5 mg Q8HP PRN IM 07/04/24 00:00 07/05/24 22:48 5 MG Meropenem 50 ml @ 17 mls/hr DAILY IV 07/08/24 10:00 07/18/24 07:31 17 MLS/HR Vasopressin 20 units/Sodium Chloride 100 ml @ 9 mls/hr Q11H7M IV 07/07/24 12:30 07/10/24 01:52 6 MLS/HR Pantoprazole Sodium 50 ml @ 10 mls/hr Q5H IV 07/07/24 17:15 07/18/24 12:05 10 MLS/HR Lorazepam 1 mg Q5MINP PRN IV 07/08/24 00:00 Vancomycin HCl 0 ml @ 0 mls/hr UD IV 07/08/24 09:30 Potassium Chloride 100 ml @ 50 mls/hr Q2H IV 07/09/24 14:30 07/09/24 18:29 UNV Diagnostic Test (Pha) 1 strip Q6HR 07/10/24 00:00 07/18/24 11:55 1 STRIP Insulin Human Regular FOLLOW SLIDING SCALE Q6HR SC 07/10/24 00:00 07/18/24 11:56 4 UNITS Dextrose 50 ml UD IV 07/10/24 00:00 Vancomycin HCl 0 ml @ 0 mls/hr UD IV 07/10/24 15:30 Cancel Sucralfate 1 gm QID@0600,1130,1700,2200 PO 07/14/24 22:00 07/18/24 11:55 1 GM Norepinephrine Bitartrate 250 ml @ 3.75 mls/hr Q24H IV 07/15/24 08:45 07/18/24 12:05 3.75 MLS/HR Lactulose 30 ml Q6HR PO 07/15/24 12:00 07/18/24 11:55 30 ML Enteral Nutritional Formula 1,000 ml 30ML/HR GT 07/16/24 11:30 07/16/24 16:14 1,000 ML Fentanyl Citrate 250 ml @ 2.5 mls/hr Q24H IV 07/16/24 12:45 07/18/24 05:22 22.5 MLS/HR Dexamethasone Sodium Phosphate 10 mg/Dextrose 51 ml @ 204 mls/hr DAILY IV 07/17/24 10:00 07/18/24 07:30 204 MLS/HR laboratory and microbiology Laboratory Tests 07/18/24 10:00 Test 07/18/24 10:00 Range/Units Serum Glucose 181 H 74-106 mg/dL Assessment/Plan Assessment: # Severe acute kidney injury on CKD likely ATN due to septic shock #Sepsis likely due to acute cholecystitis, rule out acalculous cholecystitis #GI bleed #CKD stage [place] #Anasarca # Septic shock due to UTI secondary to enterococcus faecium: #Spontaneous bacterial peritonitis secondary to liver failure due to cirrhosis #Possible Hepatic encephalopathy and cirrhosis (alcohol-related): #GI bleed likely upper GI source in cirrhotic patient #Electrolyte imbalances #Hypophosphatemia #Rule out acalculous cholecystitis #Hospice Plan: - daily evaluation for KRT - metabolic parameters acceptable today. Dietary Evaluation Review Comments: 1. Suggest Nepro 1.8 @ 50 ml/hr + 1 pckt ProStat daily; begin @ 10 ml/hr, advance SLOWLY by 10 ml Q12 hrs to goal-rate of 50 ml/hr continuously 2. Provide minimal free water flushes of 30 ml Q6 hrs (120 ml total) for tube patency; adjust PRN/per MD discretion 3. Continue to monitor/replete lytes, especially K, Mag, Phos given high refeeding risk; add 100 mg thiamine daily x 7 days 4. Should lytes drop, maintain current rate of EN and replace to WNL prior to advancing rate of EN further TF Provision: TF at goal to provide 1200 ml total volume, 2160 kcal (+100 kcal via Prostat = 2260 kcal), 97 gm pro (+ 15 gm via Prostat = 112 gm), 15 gm fiber, 1272 mg K, 864 mg Phos, 872 ml H20 (meets 100% est. kcal needs, 100% est. pro needs) Expected Outcomes/Goals: Improved nutritional status, improved hemodynamic stability. Food and Nutrition Intake (Sev: <50% est energy req 5days Fluid Accumulation (Severe): Moderate Fluid Retention Protein Calorie Malnutrition: Severe Is there a minimum of two crit: Yes Plan discussed with: Other CC Plasma Assessment Blood Product Administration S: [id number] NADIR MENDES MD Jul 18, 2024 12:21
--- NOTE | 2024-07-18 22:31 | DVHPN2 ---
Progress Note - Dictate Date Seen: Jul 18, 2024 Has the PT tested + for MRSA If YES, has PT been informed?: No Medical Necessity Reason Pt with a Central, PICC or Fol: Yes The following are medically ne: Durham Catheter Reason for durham catheter: Strict I&O, Total Immobilization Subjective Mr. Juarez is a 53 years old right-handed gentleman with a history of liver failure, liver cirrhosis, alcoholism, prostatic cancer, anxiety, hepatorenal syndrome, he came to the hospital on 06/30/24 because of for a few days. In the hospital, the patient was found to have severe jaundice, liver failure, coagulopathy, urinary tract infection, sepsis, kidney failure. On 07/08/2023, the patient was had code assistance because of hypotension and he was nonresponsive, the patient was resuscitated, intubated and transferred to ICU I saw him on 11/03/2020 for seizure I have seen and examined the patient, he is sedated, eyes are open, rolling from [id number], but not responsive to painful stimuli He has ecchymosis in the skin, no fresh blood in the NG tube Pupils size: 07/14/2024: Equal 07/15/24, Rt: 8mm, Rt: 6-7 mm, later Lt: 4mm, Rt: 3-4mm 07/16/24, 7-8mm, left left side was slightly bigger 07/17/24: Lt: 7mm, Rt: 6-7mm 07/18/24: Rt: 4mm. Lt: 5 mm No associated abnormal vascular dilatation or skin secretion Fentanyl 225 mcg/hour, levo 6 mcg/min Hearing culture, 07/01/2024: Enterococcus faecium Blood culture, 06/30/2024: No growth UDS, 07/01/2024: Negative Plasma alcohol, 06/30/2024: 3.6 Urinalysis, 07/01/2024: WBC: 3958, urine leukocyte esterase: 3+ ABG, 07/07/2024: Combined metabolic and respiratory acidosis, respiratory acidosis WBC/HB/PLT/MCV, 07/07/2024: 19.5/8.2/80/100.9, 07/09/2024: 18. 1/6.8/24/97.7, 07/10/2024: 10.2/7.3/19/90.9 PT/INR/PTT, 07/07/2024: 27.2/2.85/56.7, 07/10/2024: 20.6/2.09/54.2 K 07/07/2024: 6.3 BUN/CR, 07/07/2024: 88/7.62 TBI/AST/ALT/AP, 07/07/2024: 23.5/263/60/73 Lactic acid, 07/07/2024: 6.9, 4.9 Ammonia, 11/02/2020: 98, 11/03/2020: 109, 95, 11/07/2020: 95, 06/30/2024: 54, 07/03/2024: 11, 07/07/2024: 33 Vitamin B12, 07/01/24: 2308 Folic acid, 07/01/24: 11.87 EEG, : [id number] abnormal EEG Chest x-ray, 07/07/2024: Right basilar opacity. Lines and tubes in appropriate position. Ultrasound, 07/17/2024: Hepatic cirrhosis with large volume ascites. Gallbladder sludge. Nonspecific gallbladder wall thickening which can be seen in the setting of chronic liver disease CT head, 08/18/2020: No acute intracranial abnormality identified. Mild cerebral volume loss. Cerebral atherosclerosis CT head, 06/30/2024: No acute intracranial abnormality CT head, 07/14/2024: No acute intracranial abnormality identified CTA, 11/05/2020: No intracranial hemorrhage vital signs Vital Sign Date Time Temp Pulse Resp B/P (MAP) Pulse Ox O2 Delivery O2 Flow Rate FiO2 07/18/24 22:13 107 28 100/44 (62) 98 30 07/18/24 16:00 98.0 98.0 07/18/24 08:00 Mechanical Ventilator+ Total Intake and Output 07/17/24 07/17/24 07/18/24 15:00 23:00 07:00 Intake Total 331.25 ml 352.5 ml 965.25 ml Output Total 8100 ml Balance 331.25 ml -7747.5 ml 965.25 ml medications Current Medications Medications Dose Ordered Sig/Erik Route Start Time Stop Time Status Last Admin Dose Admin Thiamine HCl 100 mg DAILY PO 07/03/24 10:00 07/18/24 07:30 100 MG Haloperidol Lactate 5 mg Q8HP PRN IM 07/04/24 00:00 07/05/24 22:48 5 MG Meropenem 50 ml @ 17 mls/hr DAILY IV 07/08/24 10:00 07/18/24 07:31 17 MLS/HR Vasopressin 20 units/Sodium Chloride 100 ml @ 9 mls/hr Q11H7M IV 07/07/24 12:30 07/10/24 01:52 6 MLS/HR Pantoprazole Sodium 50 ml @ 10 mls/hr Q5H IV 07/07/24 17:15 07/18/24 16:07 10 MLS/HR Lorazepam 1 mg Q5MINP PRN IV 07/08/24 00:00 Vancomycin HCl 0 ml @ 0 mls/hr UD IV 07/08/24 09:30 Potassium Chloride 100 ml @ 50 mls/hr Q2H IV 07/09/24 14:30 07/09/24 18:29 UNV Diagnostic Test (Pha) 1 strip Q6HR 07/10/24 00:00 07/18/24 16:07 1 STRIP Insulin Human Regular FOLLOW SLIDING SCALE Q6HR SC 07/10/24 00:00 07/18/24 17:02 2 UNITS Dextrose 50 ml UD IV 07/10/24 00:00 Vancomycin HCl 0 ml @ 0 mls/hr UD IV 07/10/24 15:30 Cancel Sucralfate 1 gm QID@0600,1130,1700,2200 PO 07/14/24 22:00 07/18/24 16:07 1 GM Norepinephrine Bitartrate 250 ml @ 3.75 mls/hr Q24H IV 07/15/24 08:45 07/18/24 12:05 3.75 MLS/HR Lactulose 30 ml Q6HR PO 07/15/24 12:00 07/18/24 16:07 30 ML Enteral Nutritional Formula 1,000 ml 30ML/HR GT 07/16/24 11:30 07/16/24 16:14 1,000 ML Fentanyl Citrate 250 ml @ 2.5 mls/hr Q24H IV 07/16/24 12:45 07/18/24 17:33 22.5 MLS/HR Dexamethasone Sodium Phosphate 10 mg DAILY IV 07/19/24 10:00 objective The patient is well-nourished and well-developed with no distress. The patient is intubated. He has jaundice Bilateral hammertoes and high-arched foot MENTAL STATUS: Subjective CRANIAL NERVES: Pupils are round and reactive.There are corneal reflexes and doll's eyes phenomenon. No signs of facial weakness. There are gagging or coughing reflexes. There was no abnormal skin secretion, abnormal vascular dilatation SENSATION: No responses to pain stimuli. MOTOR: Normal tone in the upper and lower extremity. Normal muscle bulk. No fasciculations. No spontaneous extremity movement REFLEXES: Deep tendon reflexes are symmetrical. No pathological reflexes. CEREBELLAR/COORDINATION: Deferred GAIT/STATION: deferred laboratory and microbiology Laboratory Tests 07/18/24 10:00 Test 07/18/24 10:00 Range/Units Serum Glucose 181 H 74-106 mg/dL Problem List Altered mental status Metabolic cephalopathy Hepatic encephalopathy Hypoxic encephalopathy UTI, sepsis, septic shock Liver failure History of Alcoholism Jaundice Respiratory failure Coagulopathy/oral bleeding Thrombocytopenia Anemia GI on case Anisocoria with left-sided slightly bigger, new since 07/13/2024 according to the nurse, uncertain clinical significance Assessment/Plan Monitoring Supportive treatment ICU care Follow-up labs Stabilize vitals/pressor drip Respiratory support/vent management Thiamine supplementation Lactulose Nephrology on case Pulmonology on case GI on case This medical document was created using an electronic medical record system with [employer] dictation system. Although this document has been carefully reviewed, there may still be some phonetic and typographical errors. These areas are purely typographical due to imperfections of the software programs, and do not reflect any compromise in the patient's medical care. Prognosis poor Dietary Evaluation Review Comments: 1. Suggest Nepro 1.8 @ 50 ml/hr + 1 pckt ProStat daily; begin @ 10 ml/hr, advance SLOWLY by 10 ml Q12 hrs to goal-rate of 50 ml/hr continuously 2. Provide minimal free water flushes of 30 ml Q6 hrs (120 ml total) for tube patency; adjust PRN/per MD discretion 3. Continue to monitor/replete lytes, especially K, Mag, Phos given high refeeding risk; add 100 mg thiamine daily x 7 days 4. Should lytes drop, maintain current rate of EN and replace to WNL prior to advancing rate of EN further TF Provision: TF at goal to provide 1200 ml total volume, 2160 kcal (+100 kcal via Prostat = 2260 kcal), 97 gm pro (+ 15 gm via Prostat = 112 gm), 15 gm fiber, 1272 mg K, 864 mg Phos, 872 ml H20 (meets 100% est. kcal needs, 100% est. pro needs) Expected Outcomes/Goals: Improved nutritional status, improved hemodynamic stability. Food and Nutrition Intake (Sev: <50% est energy req 5days Fluid Accumulation (Severe): Moderate Fluid Retention Protein Calorie Malnutrition: Severe Is there a minimum of two crit: Yes Plan discussed with: Other CC Plasma Assessment Blood Product Administration S: [id number] ERIC ARIAS MD Jul 18, 2024 22:31
--- NOTE | 2024-07-18 23:25 | DVHPN2 ---
Progress Note - Dictate Date Seen: Jul 18, 2024 Has the PT tested + for MRSA If YES, has PT been informed?: No Medical Necessity Reason Pt with a Central, PICC or Fol: Yes The following are medically ne: Durham Catheter Reason for durham catheter: Strict I&O, Total Immobilization Subjective Patient seen and examined at bedside. Intubated on mechanical ventilator. Overnight events reviewed. vital signs Vital Sign Date Time Temp Pulse Resp B/P (MAP) Pulse Ox O2 Delivery O2 Flow Rate FiO2 07/18/24 22:13 107 28 100/44 (62) 98 30 07/18/24 16:00 98.0 98.0 07/18/24 08:00 Mechanical Ventilator+ Total Intake and Output 07/17/24 07/17/24 07/18/24 15:00 23:00 07:00 Intake Total 331.25 ml 352.5 ml 965.25 ml Output Total 8100 ml Balance 331.25 ml -7747.5 ml 965.25 ml medications Current Medications Medications Dose Ordered Sig/Erik Route Start Time Stop Time Status Last Admin Dose Admin Thiamine HCl 100 mg DAILY PO 07/03/24 10:00 07/18/24 07:30 100 MG Haloperidol Lactate 5 mg Q8HP PRN IM 07/04/24 00:00 07/05/24 22:48 5 MG Meropenem 50 ml @ 17 mls/hr DAILY IV 07/08/24 10:00 07/18/24 07:31 17 MLS/HR Vasopressin 20 units/Sodium Chloride 100 ml @ 9 mls/hr Q11H7M IV 07/07/24 12:30 07/10/24 01:52 6 MLS/HR Pantoprazole Sodium 50 ml @ 10 mls/hr Q5H IV 07/07/24 17:15 07/18/24 16:07 10 MLS/HR Lorazepam 1 mg Q5MINP PRN IV 07/08/24 00:00 Vancomycin HCl 0 ml @ 0 mls/hr UD IV 07/08/24 09:30 Potassium Chloride 100 ml @ 50 mls/hr Q2H IV 07/09/24 14:30 07/09/24 18:29 UNV Diagnostic Test (Pha) 1 strip Q6HR 07/10/24 00:00 07/18/24 16:07 1 STRIP Insulin Human Regular FOLLOW SLIDING SCALE Q6HR SC 07/10/24 00:00 07/18/24 17:02 2 UNITS Dextrose 50 ml UD IV 07/10/24 00:00 Vancomycin HCl 0 ml @ 0 mls/hr UD IV 07/10/24 15:30 Cancel Sucralfate 1 gm QID@0600,1130,1700,2200 PO 07/14/24 22:00 07/18/24 22:29 1 GM Norepinephrine Bitartrate 250 ml @ 3.75 mls/hr Q24H IV 07/15/24 08:45 07/18/24 12:05 3.75 MLS/HR Lactulose 30 ml Q6HR PO 07/15/24 12:00 07/18/24 16:07 30 ML Enteral Nutritional Formula 1,000 ml 30ML/HR GT 07/16/24 11:30 07/16/24 16:14 1,000 ML Fentanyl Citrate 250 ml @ 2.5 mls/hr Q24H IV 07/16/24 12:45 07/18/24 17:33 22.5 MLS/HR Dexamethasone Sodium Phosphate 10 mg DAILY IV 07/19/24 10:00 objective Gen.: Patient lying in bed in medical ICU. Intubated on mechanical ventilator. Head: Normocephalic, atraumatic. Eyes: PERRLA. Ears: Normal external anatomy. Throat: Endotracheal tube and orogastric tube in place. Neck: Supple, trachea midline. Chest: Transmitted breath sounds bilaterally. Decreased air entry bilaterally. No wheezing. Bibasilar crackles. Cardiovascular: Positive S1, positive S2. Regular rate and rhythm. Abdomen: Positive bowel sounds in all 4 quadrants. Soft, nontender, nondistended. : Durham in place. Normal external genitalia. Rectal: Deferred. Skin: Warm, dry. Intact. Extremities: 2+ radial pulses bilaterally. No lower extremity edema. Neuro: Off sedation laboratory and microbiology Laboratory Tests 07/18/24 10:00 Test 07/18/24 10:00 Range/Units Serum Glucose 181 H 74-106 mg/dL Assessment/Plan Impression: Acute hypercarbic respiratory failure On mechanical ventilator Acute metabolic encephalopathy Shock Liver cirrhosis Hx of ETOH abuse Thrombocytopenia Events: Remains on vent support On AC mode; RR 24, VT 500, PEEP 5, FiO2 30% On Fentanyl drip. Agonal breathing noted Pressors as necessary for hemodynamic support Titrate to keep MAP above 65 mmHg/SBP above 90 mmHg. Monitor blood pressure Hemodialysis, removed 4 liters yesterday Gallbladder ultrasound showed hepatic cirrhosis w/ large volume ascites. Gallbladder sludge and nonspecific gallbladder wall thickening S/p paracentesis yesterday with removal of 8 liters. Received albumin. Continue antibiotics Monitor WBC Continue steroids - dexamethasone Continue Protonix drip Tube feeds for nutritional support Family discussion regarding goals of care. Monitor hemoglobin Monitor platelets d/t thrombocytopenia NGT in place On lactulose EGD revealed extensive ulceration of gastric body and antrum with necrosis, hiatal hernia, erosive esophagitis. Awaiting biopsy results. GI recs appreciated HD per Nephrology Monitor renal function Monitor electrolytes. Supplement as necessary. Monitor ins and outs. Accu-Cheks, ISS. S/p paracentesis on 07/13/24 ABG , chest x-ray reviewed Labs and imaging reviewed. Rest of plan as noted below. Plan: s/p intubation on mechanical ventilator. On AC mode; RR 24, VT 500, PEEP 5, FiO2 30% Titrate FIO2 to keep O2 saturation above 90%. VAP bundle. Daily ABG and CXR while intubated Off sedation Continue antibiotics. Protonix drip GI recommendations appreciated Pressors as necessary for hemodynamic support Titrate to keep mean arterial pressure greater than 65 mmHg. Accu-Cheks, ISS PRN. Monitor renal function Monitor electrolytes. Supplement as necessary. Monitor ins and outs. Maintain euvolemia. GI prophylaxis. DVT prophylaxis. Prognosis: Poor given patient's multiple co-morbidities. Condition: Critical Rest of plan per hospitalist and other consultants. A total of 35 minutes of critical care time was spent reviewing the patient record, examining the patient, making a diagnostic and therapeutic plan, discussing this plan with the medical personnel, following up on diagnostic studies and following the patient for clinical stability excluding any and all procedures. At least 50% of this time was spent in direct, [id number]-hewp contact. Thank you Dr. Ovalle for allowing me to participate in this patient's care. Further recommendations will depend on the patient's clinical course. Please do not hesitate to contact me if you have any questions or concerns. This medical document was created using an electronic medical record system with [employer] dictation system. Although these documentations are being carefully reviewed, there may still be some phonetic and typographical changes. The errors are purely typographical, due to imperfection on the software program, and do not reflect any compromise in the patient's medical care. Dietary Evaluation Review Comments: 1. Suggest Nepro 1.8 @ 50 ml/hr + 1 pckt ProStat daily; begin @ 10 ml/hr, advance SLOWLY by 10 ml Q12 hrs to goal-rate of 50 ml/hr continuously 2. Provide minimal free water flushes of 30 ml Q6 hrs (120 ml total) for tube patency; adjust PRN/per MD discretion 3. Continue to monitor/replete lytes, especially K, Mag, Phos given high refeeding risk; add 100 mg thiamine daily x 7 days 4. Should lytes drop, maintain current rate of EN and replace to WNL prior to advancing rate of EN further TF Provision: TF at goal to provide 1200 ml total volume, 2160 kcal (+100 kcal via Prostat = 2260 kcal), 97 gm pro (+ 15 gm via Prostat = 112 gm), 15 gm fiber, 1272 mg K, 864 mg Phos, 872 ml H20 (meets 100% est. kcal needs, 100% est. pro needs) Expected Outcomes/Goals: Improved nutritional status, improved hemodynamic stability. Food and Nutrition Intake (Sev: <50% est energy req 5days Fluid Accumulation (Severe): Moderate Fluid Retention Protein Calorie Malnutrition: Severe Is there a minimum of two crit: Yes Plan discussed with: Other (CLIVE Bejarano) Critical Care Time(min): 35 CC Plasma Assessment Blood Product Administration S: [id number] JOAQUÍN VILLAFANA MD Jul 18, 2024 23:25
[2024-07-19] VITALS (123 sets, daily range): BP systolic 63–148; BP diastolic 31–59; PULSE 86–112; RESP 0–28; TEMP 95.6–98.4; O2SAT 96–100
[2024-07-19] MEDS: MIDAZOLAM DRIP 50 mg/50mL 50 ML IV SCH (01:53)
[2024-07-19] MEDS: PHENYLEPHRINE IV 250 ML IV SCH (03:12)
[2024-07-19 04:14] LABS: Base Excess -21.8 mmol/L (-2.0-3.0)
[2024-07-19 04:15] LABS: Red Cell Distribution Width 16.9 % (11.8-14.3)
[2024-07-19 04:20] LABS: Hematocrit 19.2 % (41.0-53.0); Mean Corpuscular Hemoglobin 31.1 pg (28.0-32.0); Mean Corpuscular Hgb Conc. 32.2 g/dL (32.0-36.0); Mean Corpuscular Volume 96.6 fL (80.0-100.0); Platelet Count (auto) 116 10^3/uL (140-450); Red Blood Cells 1.99 10^6/uL (4.5-5.90)
[2024-07-19 04:22] LABS: Albumin 3.7 g/dL (3.2-4.8); Alkaline Phosphatase 102 U/L (46-116); Anion Gap 28.00001 (5-15); Bilirubin, Total 25.4 mg/dL (0.2-1.0); Chloride 101 mmol/L (98-107); Sodium 139 mmol/L (136-145)
[2024-07-19 04:23] LABS: Alanine Aminotransferase 221 U/L (7-40); Aspartate Aminotransferase 563 U/L (13-40); Calcium 11.5 mg/dL (8.7-10.4); Magnesium 2.9 mg/dL (1.6-2.6); Total Protein 5.3 g/dL (5.7-8.2)
[2024-07-19 04:24] LABS: Blood Urea Nitrogen 90 mg/dL (9-23); Carbon Dioxide < 10 mmol/L (20-31); Glucose 41 mg/dL (74-106); Potassium 6.2 mmol/L (3.5-5.1)
[2024-07-19] MEDS: DEXTROSE (50%) 50ML SYRG IV SCH (04:30)
[2024-07-19] MEDS: SODIUM BICARB 8.4% 50Meq/50ml SYR INJ ONE ×3 (04:44→05:23)
[2024-07-19] MEDS: CALCIUM GLUC 1,000mg/50ml-NS 50 ML IV ONE ×3 (04:44→15:43)
[2024-07-19] MEDS: EPINEPHrine HCL 250 ML IV SCH (04:45)
[2024-07-19] MEDS ORDERED: SODIUM BICARB 50mEq/50ml Vial 150 ML in SOD CHL 0.45% 1,000 ML IV SCH (04:45)
[2024-07-19] MEDS: ALBUTEROL SULF 2.5 MG/0.5ML(0.5%) NEB SOLN NEB ONE ×2 (04:49→15:07)
[2024-07-19 04:59] LABS: Basophils % (manual) 0 (0.0-2.0); Eosinophils % (manual) 0 (0-7); Hemoglobin 6.2 g/dL (13.5-17.5); Myelocytes % 0; Promyelocytes % 0; Reactive Lymphocytes 0; White Blood Cell 41.3 10^3/uL (4.4-10.8)
[2024-07-19] MEDS: SODIUM BICARB 8.4% 50Meq/50ml SYR Vial IV ONE ×2 (05:03→05:12)
[2024-07-19] MEDS: ALBUMIN 5% 250 ML IV ONE ×2 (05:22→06:41)
[2024-07-19] MEDS: SOD CHL IV SCH (05:23)
[2024-07-19] MEDS: D5 IV SCH (05:23)
[2024-07-19] MEDS: SODIUM BICARB IV SCH (05:23)
[2024-07-19 05:48] LABS: Band Neutrophils % (manual) 7; Blast Cells 7; Lymphocytes % (manual) 16 (10.0-50.0); Metamyelocytes % 1; Monocytes % (manual) 6 (0-12); Platelet Estimate Decreased; Smudge Cells 3 /100 WBC
--- NOTE | 2024-07-19 05:48 | DVH ---
CHEST RADIOGRAPH Indication: INTUBATED Technique: Single frontal view of the chest was obtained COMPARISON: XY CHEST XRAY 1 VIEW on DOS: 07/18/24, XY CHEST XRAY 1 VIEW on DOS: 07/17/24, XY CHEST PORT ABLE on DOS: 07/16/24, XY CHEST PORTABLE on DOS: 07/15/24, XY CHEST PORTABLE on DOS: 07/14/24 FINDINGS: The left costophrenic angle is excluded from the image. Lines and Tubes: Lines and tubes are unchanged. Lungs: Clear Pleura: No effusion. No pneumothorax. Cardiomediastinal contours: Unremarkable Bones: Unremarkable IMPRESSION: 1. No acute disease. 2. Lines and tubes unchanged.
[2024-07-19 07:22] LABS: Base Excess -21.8 mmol/L (-2.0-3.0)
[2024-07-19] MEDS: DexAMETHasone SOD PHOS 10MG/1ML VIAL INJ IV SCH ×2 (07:22→10:00)
[2024-07-19] MEDS ORDERED: ALBUMIN 25% 100 ML IV ONE (08:15)
[2024-07-19] MEDS: PHENYLEPHRINE INJ 80 MG in SODIUM CHL 0.9% 242 ML IV SCH (08:33)
[2024-07-19] MEDS: ALBUMIN 25% 100 ML IV ONE (08:40)
[2024-07-19] MEDS: DOPamine 1600MCG/ML D5W 250 ML IV ONE (09:31)
[2024-07-19] MEDS: NOREPINEPHRINE BITARTRATE 32 MG in SODIUM CHL 0.9% 218 ML IV SCH (10:00)
[2024-07-19] MEDS: DOPamine 1600MCG/ML D5W 250 ML IV SCH (10:40)
[2024-07-19] MEDS ORDERED: SODIUM BICARB 50mEq/50ml Vial 150 ML in D5W/SOD CHL 0.45% 1,000 ML IV SCH (11:00)
--- NOTE | 2024-07-19 12:46 | DVHPN2 ---
Progress Note - Dictate Date Seen: Jul 19, 2024 Has the PT tested + for MRSA If YES, has PT been informed?: No Medical Necessity Reason Pt with a Central, PICC or Fol: Yes The following are medically ne: [place] Catheter Reason for durham catheter: Strict I&O, Total Immobilization Subjective Clinical deterioration overnight with noted requirement for increased vasopressor support, progressive acidemia. Mr. Juarez was seen on dialysis earlier today. He was on maximal dose of numerous vasopressors. Leukocytosis significantly up trending as well. vital signs Vital Sign Date Time Temp Pulse Resp B/P (MAP) Pulse Ox O2 Delivery O2 Flow Rate FiO2 07/19/24 12:24 30 07/19/24 12:00 144/49 07/19/24 11:54 101 24 99 07/19/24 09:15 97.0 97.0 07/19/24 08:00 Mechanical Ventilator+ Total Intake and Output 07/18/24 07/18/24 07/19/24 15:00 23:00 07:00 Intake Total 406.00 ml 750.00 ml 1956.0 ml Output Total 0 ml 0 ml Balance 406.00 ml 750.00 ml 1956.0 ml medications Current Medications Medications Dose Ordered Sig/Erik Route Start Time Stop Time Status Last Admin Dose Admin Thiamine HCl 100 mg DAILY PO 07/03/24 10:00 07/19/24 07:22 100 MG Haloperidol Lactate 5 mg Q8HP PRN IM 07/04/24 00:00 07/05/24 22:48 5 MG Meropenem 50 ml @ 17 mls/hr DAILY IV 07/08/24 10:00 07/18/24 07:31 17 MLS/HR Vasopressin 20 units/Sodium Chloride 100 ml @ 9 mls/hr Q11H7M IV 07/07/24 12:30 07/19/24 07:22 9 MLS/HR Pantoprazole Sodium 50 ml @ 10 mls/hr Q5H IV 07/07/24 17:15 07/19/24 09:15 10 MLS/HR Lorazepam 1 mg Q5MINP PRN IV 07/08/24 00:00 Vancomycin HCl 0 ml @ 0 mls/hr UD IV 07/08/24 09:30 Potassium Chloride 100 ml @ 50 mls/hr Q2H IV 07/09/24 14:30 07/09/24 18:29 UNV Diagnostic Test (Pha) 1 strip Q6HR 07/10/24 00:00 07/19/24 05:59 1 STRIP Insulin Human Regular FOLLOW SLIDING SCALE Q6HR SC 07/10/24 00:00 07/18/24 17:02 2 UNITS Dextrose 50 ml UD IV 07/10/24 00:00 07/19/24 04:30 50 ML Vancomycin HCl 0 ml @ 0 mls/hr UD IV 07/10/24 15:30 Cancel Sucralfate 1 gm QID@0600,1130,1700,2200 PO 07/14/24 22:00 07/19/24 05:59 1 GM Lactulose 30 ml Q6HR PO 07/15/24 12:00 07/19/24 05:59 30 ML Enteral Nutritional Formula 1,000 ml 30ML/HR GT 07/16/24 11:30 07/16/24 16:14 1,000 ML Fentanyl Citrate 250 ml @ 2.5 mls/hr Q24H IV 07/16/24 12:45 07/19/24 01:59 35 MLS/HR Midazolam HCl 50 ml @ 1 mls/hr Q24H IV 07/19/24 01:45 07/19/24 05:18 6 MLS/HR Epinephrine HCl 250 ml @ 7.5 mls/hr Q24H IV 07/19/24 04:45 07/19/24 08:34 7.5 MLS/HR Dexamethasone Sodium Phosphate 6 mg DAILY IV 07/19/24 10:00 Phenylephrine HCl 80 mg/Sodium Chloride 250 ml @ 7.5 mls/hr Q24H IV 07/19/24 08:15 07/19/24 08:33 7.5 MLS/HR Norepinephrine Bitartrate 32 mg/ Sodium Chloride 250 ml @ 0.938 mls/ hr Q24H IV 07/19/24 08:15 07/19/24 10:00 14.063 MLS/HR Dopamine HCl/ Dextrose 250 ml @ 17.269 mls/ hr [id number] IV 07/19/24 10:30 07/19/24 10:40 17.269 MLS/HR Sodium Bicarbonate 150 ml/Dextrose/ Sodium Chloride 1,150 ml @ 100 mls/hr [id number] IV 07/19/24 11:00 objective Gen: Ill-appearing, intubated, sedated heent: + ETT lungs: Coarse breath sounds cvs: no rub abd: Distended ext: + edema laboratory and microbiology Laboratory Tests 07/19/24 03:06 Test 07/19/24 03:06 Range/Units Serum Glucose 41 #*L 74-106 mg/dL Assessment/Plan Assessment: # Severe acute kidney injury on CKD likely ATN due to septic shock #Sepsis likely due to acute cholecystitis, rule out acalculous cholecystitis #GI bleed #CKD stage [place] #Anasarca # Septic shock due to UTI secondary to enterococcus faecium: #Spontaneous bacterial peritonitis secondary to liver failure due to cirrhosis #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 Unable to ultrafilter due to profound shock/ hemodynamic collapse - clinical suspicion for fulminant/ severe septic shock, overall poor prognosis Dietary Evaluation Review Comments: 1. Suggest Nepro 1.8 @ 50 ml/hr + 1 pckt ProStat daily; begin @ 10 ml/hr, advance SLOWLY by 10 ml Q12 hrs to goal-rate of 50 ml/hr continuously 2. Provide minimal free water flushes of 30 ml Q6 hrs (120 ml total) for tube patency; adjust PRN/per MD discretion 3. Continue to monitor/replete lytes, especially K, Mag, Phos given high refeeding risk; add 100 mg thiamine daily x 7 days 4. Should lytes drop, maintain current rate of EN and replace to WNL prior to advancing rate of EN further TF Provision: TF at goal to provide 1200 ml total volume, 2160 kcal (+100 kcal via Prostat = 2260 kcal), 97 gm pro (+ 15 gm via Prostat = 112 gm), 15 gm fiber, 1272 mg K, 864 mg Phos, 872 ml H20 (meets 100% est. kcal needs, 100% est. pro needs) Expected Outcomes/Goals: Improved nutritional status, improved hemodynamic stability. Food and Nutrition Intake (Sev: <50% est energy req 5days Fluid Accumulation (Severe): Moderate Fluid Retention Protein Calorie Malnutrition: Severe Is there a minimum of two crit: Yes Plan discussed with: Other CC Plasma Assessment Blood Product Administration S: [id number] NADIR MENDES MD Jul 19, 2024 12:46
[2024-07-19 13:17] LABS: Hemoglobin 8.1 g/dL (13.5-17.5)
[2024-07-19 13:18] LABS: Hematocrit 24.2 % (41.0-53.0); Mean Corpuscular Hgb Conc. 33.4 g/dL (32.0-36.0); Mean Corpuscular Volume 92.8 fL (80.0-100.0); Platelet Count (auto) 76 10^3/uL (140-450); Red Blood Cells 2.61 10^6/uL (4.5-5.90); Red Cell Distribution Width 17.1 % (11.8-14.3)
[2024-07-19 13:27] LABS: White Blood Cell 45.7 10^3/uL (4.4-10.8)
[2024-07-19 13:28] LABS: Basophils % (manual) 0 (0.0-2.0); Eosinophils % (manual) 0 (0-7); Reactive Lymphocytes 0
[2024-07-19 13:33] LABS: Lymphocytes % (manual) 7 (10.0-50.0); Monocytes % (manual) 12 (0-12)
[2024-07-19 13:36] LABS: Band Neutrophils % (manual) 12; Blast Cells 5; Metamyelocytes % 3; Myelocytes % 2; Promyelocytes % 1
[2024-07-19 13:37] LABS: Anisocytosis Slight
[2024-07-19 13:38] LABS: Platelet Estimate Decreased
[2024-07-19] MEDS: SODIUM BICARB 50mEq/50ml Vial 150 ML in D5W 5% 1,000 ML IV SCH (13:52)
[2024-07-19] MEDS: ALBUMIN 25% 100 ML IV SCH (13:56)
[2024-07-19] MEDS: VANCOMYCIN 500mg/100mL 100 ML IV ONE (14:00)
[2024-07-19 14:16] LABS: Albumin 4.3 g/dL (3.2-4.8); Anion Gap 26 (5-15); Chloride 99 mmol/L (98-107); Glucose 88 mg/dL (74-106); Sodium 137 mmol/L (136-145)
[2024-07-19 14:17] LABS: BUN/Creatinine Ratio 14.9 (10.0-20.0)
[2024-07-19 14:18] LABS: Bilirubin, Total 25.5 mg/dL (0.2-1.0); Blood Urea Nitrogen 41 mg/dL (9-23); Total Protein 5.8 g/dL (5.7-8.2)
[2024-07-19 14:19] LABS: Alkaline Phosphatase 175 U/L (46-116); Calcium 10.7 mg/dL (8.7-10.4); Carbon Dioxide 12 mmol/L (20-31); Magnesium 2.7 mg/dL (1.6-2.6)
[2024-07-19 14:20] LABS: Potassium 6.3 mmol/L (3.5-5.1)
[2024-07-19 14:21] LABS: Lactic Acid w/Reflex 14.6 mmol/L (0.4-2.0)
--- NOTE | 2024-07-19 14:28 | DVHPNRES ---
Progress Note Date Seen: Jul 19, 2024 Resident Creating Document: AUDRA CRANDALL RESIDENT Has the PT tested + for MRSA If YES, has PT been informed?: No Medical Necessity Reason Pt with a Central, PICC or Fol: Yes The following are medically ne: Durham Catheter Reason for durham catheter: Strict I&O, Total Immobilization Subjective Review of Systems A 53-year-old male with past medical history of liver cirrhosis (due to alcohol use disorder)and CKD brought to the hospital due to altered mental status. Family were called, but the didnt answer, all the info was taken to the medical records Per EMS reports patient was taken from home and per family member he has been altered since 1 week which has progressively worsened. He was admitted on 10/31/2020 and DVT H due to GI bleeding, EGD was performed, showed gastritis with no active bleeding. PMHx: Liver cirrhosis due to alcohol use disorder, CKD Social history: Has history of alcohol use disorder 07/01/2024: paracentesis done 7LT, multiple wbc in the ascitic fluid, labile BPs, midodrine and octeotride started, zosyn and linezolid due to sepsis and possible SBP, start levophed if MAP below 60, fluids were given, protonix BID 07/02/2024: renal function is declining, hb is stable, FOB neg, protonix drip started, bumex drip started 07/06/2024: urine culture positive for enterococcus, patient is on zosyn and linezolid, hyperkalemia 5.8 07/07/2024: At around 9 a.m., patient was found gasping for air with MAP of 53. Rapid response was called. Mental status deteriorated (GCS drop), requiring intubation. Central line and Jordan catheter were placed. Started on vasopressors: Levophed up to 30 mcg/min and Vasopressin 0.04 U/min. Emergent dialysis was initiated due to uremia and hyperkalemia (K 6.3, later improved to 4.1). ABG showed compensated respiratory status. Patient was found to be hypoglycemic (glucose 16) during event. He is now sedated on fentanyl drip. Labs showed Hgb 6.6likely due to GI bleed; received blood products, Vitamin K, and PPI drip. Prognosis remains poor, and case was re-discussed with family; full code until now 07/08/2024: yesterday HD filtration only, platelets trending down, Dc linezolid, start vancomycin, start low dose propofol, levophed off, still on vasopressin, , GI ok with NG tube, minimal vent settings (fio2 40%) 07/09/2024: 1 apheresis and 1 rbc given, still bloody secretions from mouth, albumin and bumex given, clinimix started by GI, min vent settings, still on vasopressin, octreotide and protonix drip, HD today 07/13/2024: Pt is on TPN, so far in this admission: 6 URBC, 4 FFP, 5 Units of platelets and 1 unit of cryoprecipitates given, dialysis yesterday 2LT, new paracentesis on 07/12/2024 7.8 Lt, jn is growing in the sputum (colonization), hb 8.2 plat [id number] ABG: mild respiratory acidosis, levophed 4 mcg, protonix and octreotide drip, vancomycin and meropenem, no fevers, minimal vent settings 07/14/2024: hb 8,2 plat 22, ABG respiratory acidosis pH 7.27 pCO2 56.2 bicarb 25, tidal volume was increased 500, possible scope today, frozen plasma and platelets ordered, right now patient is getting dialysis, Levophed during the night 2 mcg, bleeding through the G-tube 350 cc, Durham 200cc urine, no fevers, head ct scan will be ordered after scope 07/15/2024: hb 8.3 plat 25 ABG respiratory alkalosis RR 24 TV 500, scope yesterday:antrum with necrosis and overlying eschar most prominent in the antrum causing oozing and pylorus, dialysis yesterday 3LT out, levophed 4 mcg, output in the gtube 150cc, normal head ct scan 07/16/2024: hb 7.9 plat [id number] ABG mild respiratory acidosis RR 24 TV 500, not able to go down on sedation today, dialysis yesterday and today 3 LT, levophed off pm, output g tube 100 cc, dc durham, start tube feedings, discussion with the sister about possible tracheostomy and peg tube, she agreed on both, she is coming next week 07/17/2024: wbc 17998 hb 8.2 plat [id number] ABG normal, dialysis today 4lt, paracentesis 8lt, levophed on/off, tube feedings, gallbladder with thickened of the doss, IR consulted for tunneled dialysis catheter and cholecystostomy, hydrocortisone is replaced with dexamethasone due shortage, new cultures ordered, nancy was dc, TPN was dc as well, abdominal fluid showed low wbc;rbc ratio SBP improving?, pending culture of abdominal fluid 07/19/2024: patient is critically ill, fulminant shock, severe DIC, severe metabolic acidosis, need epinephrine, dopamine, phenylephrine, vasopressin, Levophed, dialysis today positive 2LT, hyperkalemia, hypoglycemia, sister POA updated about the clinical status, modified code status: no CPR, yes defibrillation, yes ACLS medication, hyperkalemia protocol, albumin IV Objective vital signs Vital Sign Date Time Temp Pulse Resp B/P (MAP) Pulse Ox O2 Delivery O2 Flow Rate FiO2 07/19/24 14:15 99 24 131/48 (75) 99 07/19/24 14:13 30 07/19/24 12:00 96.6 96.6 07/19/24 08:00 Mechanical Ventilator+ Total Intake and Output 07/18/24 07/18/24 07/19/24 15:00 23:00 07:00 Intake Total 406.00 ml 750.00 ml 1956.0 ml Output Total 0 ml 0 ml Balance 406.00 ml 750.00 ml 1956.0 ml medications Current Medications Medications Dose Ordered Sig/Erik Route Start Time Stop Time Status Last Admin Dose Admin Thiamine HCl 100 mg DAILY PO 07/03/24 10:00 07/19/24 07:22 100 MG Haloperidol Lactate 5 mg Q8HP PRN IM 07/04/24 00:00 07/05/24 22:48 5 MG Meropenem 50 ml @ 17 mls/hr DAILY IV 07/08/24 10:00 07/19/24 10:00 17 MLS/HR Vasopressin 20 units/Sodium Chloride 100 ml @ 9 mls/hr Q11H7M IV 07/07/24 12:30 07/19/24 07:22 9 MLS/HR Pantoprazole Sodium 50 ml @ 10 mls/hr Q5H IV 07/07/24 17:15 07/19/24 09:15 10 MLS/HR Lorazepam 1 mg Q5MINP PRN IV 07/08/24 00:00 Vancomycin HCl 0 ml @ 0 mls/hr UD IV 07/08/24 09:30 Potassium Chloride 100 ml @ 50 mls/hr Q2H IV 07/09/24 14:30 07/09/24 18:29 UNV Diagnostic Test (Pha) 1 strip Q6HR 07/10/24 00:00 07/19/24 12:00 1 STRIP Insulin Human Regular FOLLOW SLIDING SCALE Q6HR SC 07/10/24 00:00 07/18/24 17:02 2 UNITS Dextrose 50 ml UD IV 07/10/24 00:00 07/19/24 04:30 50 ML Vancomycin HCl 0 ml @ 0 mls/hr UD IV 07/10/24 15:30 Cancel Sucralfate 1 gm QID@0600,1130,1700,2200 PO 07/14/24 22:00 07/19/24 05:59 1 GM Lactulose 30 ml Q6HR PO 07/15/24 12:00 07/19/24 05:59 30 ML Enteral Nutritional Formula 1,000 ml 30ML/HR GT 07/16/24 11:30 07/16/24 16:14 1,000 ML Fentanyl Citrate 250 ml @ 2.5 mls/hr Q24H IV 07/16/24 12:45 07/19/24 01:59 35 MLS/HR Midazolam HCl 50 ml @ 1 mls/hr Q24H IV 07/19/24 01:45 07/19/24 05:18 6 MLS/HR Epinephrine HCl 250 ml @ 7.5 mls/hr Q24H IV 07/19/24 04:45 07/19/24 14:07 30 MLS/HR Dexamethasone Sodium Phosphate 6 mg DAILY IV 07/19/24 10:00 Phenylephrine HCl 80 mg/Sodium Chloride 250 ml @ 7.5 mls/hr Q24H IV 07/19/24 08:15 07/19/24 08:33 7.5 MLS/HR Norepinephrine Bitartrate 32 mg/ Sodium Chloride 250 ml @ 0.938 mls/ hr Q24H IV 07/19/24 08:15 07/19/24 10:00 14.063 MLS/HR Dopamine HCl/ Dextrose 250 ml @ 17.269 mls/ hr [id number] IV 07/19/24 10:30 07/19/24 10:40 17.269 MLS/HR Albumin Human 100 ml @ 100 mls/hr Q8H IV 07/19/24 13:00 07/21/24 05:59 07/19/24 13:56 100 MLS/HR Sodium Bicarbonate 150 ml/Dextrose 1,150 ml @ 100 mls/hr [id number] IV 07/19/24 13:00 07/19/24 13:52 100 MLS/HR Examination Examination General Appearance: intubated HEENT: anisocoria, bleeding through the mouth Respiratory: left IJ cath right HD cath Clear to auscultation, Normal air movement Cardiovascular: Regular rate, Normal S1, Normal S2, No murmurs, no chest wall tenderness Abdominal: ascities Extremities: No clubbing, No cyanosis, No edema, Normal pulses, Skin: Generalized yellow discoloration of skin, petechial/purpuric lesion upper limbs laboratory and microbiology Laboratory Tests 07/19/24 13:49 07/19/24 12:30 Test 07/19/24 13:49 Range/Units Serum Glucose 88 74-106 mg/dL Microbiology Date/Time Source Procedure Growth Status 07/17/24 15:11 Peritoneal Fluid Aerobic Culture - Preliminary Resulted 07/17/24 14:24 Blood Blood Culture - Preliminary NO GROWTH AFTER 24 HOURS OF INCUBATION. Resulted 07/07/24 09:58 Trachea Gram Stain - Final Complete 07/07/24 09:58 Respiratory Culture - Final Presumptive Jn albicans Complete 07/01/24 17:21 Voided Urine Urine Culture - Final Enterococcus faecium Complete Problem List/Assessment/Plan Problem List/Assessment/Plan Neurology #Acute metabolic encephalopathy due to hepatic and uremic encephalopathy #GCS deterioration requiring intubation Intubated. Currently sedated with fentanyl drip new head ct scan: no acute changes off sedation Cardiology #Shock, likely multifactorial septic, hypovolemic need epinephrine, dopamine, phenylephrine, vasopressin, Levophed Pulmonary #Acute hypoxic respiratory failure requiring mechanical ventilation #Vent dependent, intubated Vent settings: PEEP 5, TV 500, RR 24, FiO2 30%.Continue ventilator support, monitor ABGs: severe metabolic acidosis: no vent changes for now Hematology #Severe anemia, likely due to GI bleeding #Thrombocytopenia due to liver failure #severe DIC 9 URBC, 6 FFP, 7 Units of platelets and 2 unit of cryoprecipitates Infectious Disease #Septic shock, likely secondary to UTI and spontaneous bacterial peritonitis #Possible aspiration pneumonia: gram+/gram - Urine culture positive for enterococcus, blood culture no growth x5 days. Sputum culture:positive for jn (colonization): no need of antifungal for now On Meropenem+ vancomycin Continue dual coverage. #SBP Paracentesis: 8 L removed 07/17/24 high WBC in ascitic fluid (at admission). antibiotics ongoing. low wbc:rbc ratio in last paracentesis GI/Hepatology #Liver cirrhosis secondary to alcohol use #Massive ascites #esophageal varices ruled out #Upper GI bleed, unspecified location #ischemic gastritis #necrotic antrum ulcer #gallbladder wall thickening GI consulted. Octreotide drip, PPI drip, PRBCs transfused. Vitamin K administered. Continue PPI. Trend Hgb. Monitor for rebleeding. lactulose oral continue feedings: nephro 30cc/h EGD: ischemic gastritis + necrotic ulcer in the antrum IR consulted for possible cholecystostomy: patient is too unstable at the moment Renal #CLIFFORD on CKD, likely multifactorial: uremia, hypotension, sepsis #Hyperkalemia #Uremic encephalopathy #Emergency dialysis CVVH initiated #severe metabolic acidosis HD positive 2LT Albumin given IR consulted for tunneled catheter D5W+ bicarbonate drip Endocrinology #Hypoglycemia Severe, D5W+ bicarbonate Nutrition #Severe malnutrition tube feedings Code Status: modified Lines/Support Intubated Central line DC A-line Jordan catheter dc Durham catheter 07/19/2024: patient is critically ill, fulminant shock, severe DIC, severe metabolic acidosis, need epinephrine, dopamine, phenylephrine, vasopressin, Levophed, dialysis today positive 2LT, hyperkalemia, hypoglycemia, sister POA updated about the clinical status, modified code status: no CPR, yes defibrillation, yes ACLS medication, hyperkalemia protocol, albumin IV Prophylaxis and Orders DVT: SCD GI: PPI drip (Protonix) Bowel: Lactulose Case discussed with Dr Riojas Plan discussed with: Patient, Other (rn) My Orders My Orders Orders - AUDRA CRANDALL Procedure Category Date Status Time Dexamethasone PHA 07/19/24 In Process Injection (Decadron 10:00 PTPTT LAB 07/19/24 In Process 07:26 Basic Metabolic Panel LAB 07/20/24 Verified 07:27 Sodium Chl 0.9% PHA 4/20/25 In Process (Ns... 08:15 Sodium Chl 0.9% PHA 07/19/24 In Process (Ns... 08:15 Dietary Evaluation Review Comments: 1. Suggest Nepro 1.8 @ 50 ml/hr + 1 pckt ProStat daily; begin @ 10 ml/hr, advance SLOWLY by 10 ml Q12 hrs to goal-rate of 50 ml/hr continuously 2. Provide minimal free water flushes of 30 ml Q6 hrs (120 ml total) for tube patency; adjust PRN/per MD discretion 3. Continue to monitor/replete lytes, especially K, Mag, Phos given high refeeding risk; add 100 mg thiamine daily x 7 days 4. Should lytes drop, maintain current rate of EN and replace to WNL prior to advancing rate of EN further TF Provision: TF at goal to provide 1200 ml total volume, 2160 kcal (+100 kcal via Prostat = 2260 kcal), 97 gm pro (+ 15 gm via Prostat = 112 gm), 15 gm fiber, 1272 mg K, 864 mg Phos, 872 ml H20 (meets 100% est. kcal needs, 100% est. pro needs) Expected Outcomes/Goals: Improved nutritional status, improved hemodynamic stability. Food and Nutrition Intake (Sev: <50% est energy req 5days Fluid Accumulation (Severe): Moderate Fluid Retention Protein Calorie Malnutrition: Severe Is there a minimum of two crit: Yes CC Plasma Assessment Blood Product Administration S: [id number] Date of Service: Jul 19, 2024 Billing Provider: ROBERT RIOJAS DO Common Visit Codes: 05396-KGABEMYL CARE 30-74 MIN, 73832-CASPASSO CARE-EACH +30MIN AUDRA CRANDALL RESIDENT Jul 19, 2024 14:28 ROBERT RIOJAS DO Jul 20, 2024 07:42
[2024-07-19 14:29] LABS: Prothrombin Time 51.2 sec (9.3-11.8)
[2024-07-19 14:34] LABS: INR 5.65 (0.9-1.15)
[2024-07-19 14:35] LABS: Partial Thromboplastin Time > 139.0 SEC (24.5-34.5)
[2024-07-19 14:57] LABS: Alanine Aminotransferase 1561 U/L (7-40); Aspartate Aminotransferase > 6000 U/L (13-40)
[2024-07-19] MEDS: InsuLIN REG 1unit/0.01ml Soln (100units/ml) IV ONE (15:00)
[2024-07-19] MEDS: DEXTROSE (50%) 50ML SYRG IV ONE (15:43)
[2024-07-19 18:59] LABS: Sodium 137 mmol/L (136-145)
[2024-07-19 19:00] LABS: Anion Gap 27 (5-15)
[2024-07-19 19:02] LABS: Calcium 10.9 mg/dL (8.7-10.4); Carbon Dioxide 14 mmol/L (20-31); Chloride 96 mmol/L (98-107); Potassium 5.5 mmol/L (3.5-5.1)
[2024-07-19 19:08] LABS: Blood Urea Nitrogen 56 mg/dL (9-23); Glucose 173 mg/dL (74-106)
[2024-07-19] MEDS: MORPHINE SULFATE INJ 2 MG/ml SYRG ONE (20:33)
[2024-07-19] MEDS: MORPHINE SULFATE INJ 2 MG/ml SYRG IV PRN (20:33)
--- NOTE | 2024-07-19 23:45 | DVHPN2 ---
Progress Note - Dictate Date Seen: Jul 19, 2024 Has the PT tested + for MRSA If YES, has PT been informed?: No Medical Necessity Reason Pt with a Central, PICC or Fol: Yes The following are medically ne: Durham Catheter Reason for durham catheter: Strict I&O, Total Immobilization Subjective Patient seen and examined at bedside. Intubated on mechanical ventilator. Overnight events reviewed. vital signs Vital Sign Date Time Temp Pulse Resp B/P (MAP) Pulse Ox O2 Delivery O2 Flow Rate FiO2 07/19/24 20:45 0 07/19/24 20:33 86 07/19/24 20:30 98 07/19/24 20:00 30 07/19/24 20:00 Mechanical Ventilator+ 07/19/24 19:45 96.0 96.0 Total Intake and Output 07/18/24 07/18/24 07/19/24 15:00 23:00 07:00 Intake Total 406.00 ml 750.00 ml 1956.0 ml Output Total 0 ml 0 ml Balance 406.00 ml 750.00 ml 1956.0 ml medications Current Medications Medications Dose Ordered Sig/Erik Route Start Time Stop Time Status Last Admin Dose Admin Potassium Chloride 100 ml @ 50 mls/hr Q2H IV 07/09/24 14:30 07/09/24 18:29 UNV Vancomycin HCl 0 ml @ 0 mls/hr UD IV 07/10/24 15:30 Cancel objective Gen.: Patient lying in bed in medical ICU. Intubated on mechanical ventilator. Head: Normocephalic, atraumatic. Eyes: PERRLA. Ears: Normal external anatomy. Throat: Endotracheal tube and orogastric tube in place. Neck: Supple, trachea midline. Chest: Transmitted breath sounds bilaterally. Decreased air entry bilaterally. No wheezing. Bibasilar crackles. Cardiovascular: Positive S1, positive S2. Regular rate and rhythm. Abdomen: Positive bowel sounds in all 4 quadrants. Soft, nontender, nondistended. : Durham in place. Normal external genitalia. Rectal: Deferred. Skin: Warm, dry. Intact. Extremities: 2+ radial pulses bilaterally. No lower extremity edema. Neuro: Off sedation laboratory and microbiology Laboratory Tests 07/19/24 18:40 07/19/24 12:30 Test 07/19/24 18:40 Range/Units Serum Glucose 173 H 74-106 mg/dL Assessment/Plan Impression: Acute hypercarbic respiratory failure On mechanical ventilator Acute metabolic encephalopathy Shock Liver cirrhosis Hx of ETOH abuse Thrombocytopenia Events: Remains on vent support On AC mode; RR 24, VT 500, PEEP 5, FiO2 30% Agonal breathing noted Pressors for hemodynamic support Titrate to keep MAP above 65 mmHg/SBP above 90 mmHg. Hemodialysis today. On antibiotics Poor prognosis Poor chance of meaningful recovery Family discussion regarding goals of care - agreed for compassionate extubation. Addendum: Patient underwent compassionate extubation today Continue supportive care. Gallbladder ultrasound showed hepatic cirrhosis w/ large volume ascites. Gallbladder sludge and nonspecific gallbladder wall thickening S/p paracentesis 07/17/24 with removal of 8 liters. Received albumin. Protonix drip Tube feeds for nutritional support Monitor hemoglobin Monitor platelets d/t thrombocytopenia NGT in place On lactulose EGD revealed extensive ulceration of gastric body and antrum with necrosis, hiatal hernia, erosive esophagitis. Awaiting biopsy results. GI recs appreciate Labs and imaging reviewed. Plan: s/p intubation on mechanical ventilator. On AC mode; RR 24, VT 500, PEEP 5, FiO2 30% Titrate FIO2 to keep O2 saturation above 90%. VAP bundle. Daily ABG and CXR while intubated Off sedation Continue antibiotics. Protonix drip GI recommendations appreciated Pressors as necessary for hemodynamic support Titrate to keep mean arterial pressure greater than 65 mmHg. Accu-Cheks, ISS PRN. HD per Nephrology Monitor renal function Monitor electrolytes. Supplement as necessary. Monitor ins and outs. Maintain euvolemia. GI prophylaxis. DVT prophylaxis. Prognosis: Poor given patient's multiple co-morbidities. Condition: Critical Rest of plan per hospitalist and other consultants. A total of 35 minutes of critical care time was spent reviewing the patient record, examining the patient, making a diagnostic and therapeutic plan, discussing this plan with the medical personnel, following up on diagnostic studies and following the patient for clinical stability excluding any and all procedures. At least 50% of this time was spent in direct, [id number] contact. Thank you Dr. Ovalle for allowing me to participate in this patient's care. Further recommendations will depend on the patient's clinical course. Please do not hesitate to contact me if you have any questions or concerns. This medical document was created using an electronic medical record system with [employer] dictation system. Although these documentations are being carefully reviewed, there may still be some phonetic and typographical changes. The errors are purely typographical, due to imperfection on the software program, and do not reflect any compromise in the patient's medical care. Dietary Evaluation Review Comments: 1. Suggest Nepro 1.8 @ 50 ml/hr + 1 pckt ProStat daily; begin @ 10 ml/hr, advance SLOWLY by 10 ml Q12 hrs to goal-rate of 50 ml/hr continuously 2. Provide minimal free water flushes of 30 ml Q6 hrs (120 ml total) for tube patency; adjust PRN/per MD discretion 3. Continue to monitor/replete lytes, especially K, Mag, Phos given high refeeding risk; add 100 mg thiamine daily x 7 days 4. Should lytes drop, maintain current rate of EN and replace to WNL prior to advancing rate of EN further TF Provision: TF at goal to provide 1200 ml total volume, 2160 kcal (+100 kcal via Prostat = 2260 kcal), 97 gm pro (+ 15 gm via Prostat = 112 gm), 15 gm fiber, 1272 mg K, 864 mg Phos, 872 ml H20 (meets 100% est. kcal needs, 100% est. pro needs) Expected Outcomes/Goals: Improved nutritional status, improved hemodynamic stability. Food and Nutrition Intake (Sev: <50% est energy req 5days Fluid Accumulation (Severe): Moderate Fluid Retention Protein Calorie Malnutrition: Severe Is there a minimum of two crit: Yes Plan discussed with: Other (CLIVE Bejarano) Critical Care Time(min): 35 CC Plasma Assessment Blood Product Administration S: [id number] JOAQUÍN VILLAFANA MD Jul 19, 2024 23:45
--- NOTE | 2024-07-20 00:10 | DVHDS2 ---
Summary Date of Admission Jul 01, 2024 at 02:34 Date and Time of Expiration: Jul 19, 2024 20:49 Reason for Admission: Acute metabolic encephalophaty Labs/Diagnostic Data: Laboratory Results Test 07/19/24 18:40 07/19/24 18:22 07/19/24 13:49 07/19/24 12:30 Sodium Level 137 mmol/L (136-145) Potassium Level 5.5 mmol/L (3.5-5.1) Chloride Level 96 mmol/L (98-107) Carbon Dioxide Level 14 mmol/L (20-31) Anion Gap 27 (5-15) Blood Urea Nitrogen 56 mg/dL (9-23) Creatinine 2.55 mg/dL (0.700-1.30) Glomerular Filtration Rate Calc 29 mL/min (>90) BUN/Creatinine Ratio 22.0 (10.0-20.0) Serum Glucose 173 mg/dL (74-106) Calcium Level 10.9 mg/dL (8.7-10.4) POC Glucose 139 mg/dl (70-106) Prothrombin Time 51.2 sec (9.3-11.8) Prothrombin Time INR 5.65 (0.9-1.15) Activated Partial Thromboplast Time > 139.0 SEC (24.5-34.5) Lactic Acid Level 14.6 mmol/L (0.4-2.0) Magnesium Level 2.7 mg/dL (1.6-2.6) Total Bilirubin 25.5 mg/dL (0.2-1.0) Aspartate Amino Transferase (AST) > 6000 U/L (13-40) Alanine Aminotransferase (ALT) 1561 U/L (7-40) Alkaline Phosphatase 175 U/L (46-116) Total Protein 5.8 g/dL (5.7-8.2) Albumin 4.3 g/dL (3.2-4.8) White Blood Count 45.7 10^3/uL (4.4-10.8) Red Blood Count 2.61 10^6/uL (4.5-5.90) Hemoglobin 8.1 g/dL (13.5-17.5) Hematocrit 24.2 % (41.0-53.0) Mean Corpuscular Volume 92.8 fL (80.0-100.0) Mean Corpuscular Hemoglobin 31.0 pg (28.0-32.0) Mean Corpuscular Hemoglobin Concent 33.4 g/dL (32.0-36.0) Red Cell Distribution Width 17.1 % (11.8-14.3) Platelet Count 76 10^3/uL (140-450) Mean Platelet Volume 11.3 fL (6.9-10.8) Neutrophils (%) (Auto) % (37.0-80.0) Lymphocytes (%) (Auto) % (10.0-50.0) Monocytes (%) (Auto) % (0.0-12.0) Basophils (%) (Auto) % (0.0-2.0) Neutrophils # (Auto) 10 ^3/uL (1.6-8.6) Lymphocytes # (Auto) 10 ^3/uL (0.4-5.4) Monocytes # (Auto) 10 ^3/uL (0-1.3) Differential Total Cells Counted 100.0 (100) Neutrophils % (Manual) 58 (37.0-80.0) Band Neutrophils % (Manual) 12 Lymphocytes % (Manual) 7 (10.0-50.0) Monocytes % (Manual) 12 (0-12) Eosinophils % (Manual) 0 (0-7) Basophils % (Manual) 0 (0.0-2.0) Metamyelocytes % (manual) 3 Myelocytes % (Manual) 2 Promyelocytes % (Manual) 1 Blast Cells % (Manual) 5 Nucleated Red Blood Cells 6.0 % Reactive Lymphocytes 0 Platelet Estimate Decreased Poikilocytosis (manual) Slight Anisocytosis (manual) Slight Gavino Cells Few Test 07/19/24 07:10 07/19/24 03:06 07/18/24 10:00 07/17/24 19:00 Blood Gas Specimen Type Arterial Blood Gas Sample Site Left radial Blood Gas Patient Temperature 37.0 Arterial Blood Date Drawn [id number] Arterial Blood pH 6.975 (7.350-7.450) Arterial Blood Partial Pressure CO2 35.5 mmHg (35.0-48.0) Arterial Blood Partial Pressure O2 107.3 mmHg (83.0-108.0) Arterial Blood HCO3 8.1 mmol/L (21.0-28.0) Arterial Blood Oxygen Saturation 94.8 % (94.0-98.0) Arterial Blood Base Excess -21.8 mmol/L (-2.0-3.0) Arterial Blood Oxyhemoglobin 93.5 % (94.0-98.0) Arterial Blood Carboxyhemoglobin 0.5 % (0.5-1.5) Arterial Blood Methemoglobin 0.9 % (0.0-1.5) Johnny Test Modified Blood Gas Total Hemoglobin 6.70 g/dL (13.5-17.5) Blood Gas Set Respiration Rate 24.0 Blood Gas Modality Vent - ac FiO2 % 30.0 Blood Gas Tidal Volume 500.0 Blood Gas PEEP or CPAP 5.0 Blood Gas Critical Value Read Back Yes Blood Gas Notified Whom Dr. st Blood Gas Notified Time [id number] Blood Gas Notified By Vinny padron, [employer] Smudge Cells 3 /100 WBC Phosphorus Level 4.9 mg/dL (2.4-5.1) Ammonia 36 umol/L (11-32) Random Vancomycin Level 19.9 ug/mL (5-10) Clumped Platelets None Fibrinogen 67 mg/dL (177-375) Test 07/17/24 15:11 07/16/24 07:21 07/16/24 03:22 07/15/24 03:20 Body Fluid Source Pleural fluid Body Fluid WBC (Manual) 218 CUMM (0-200) Body Fluid RBC (Manual) 1544 CUMM (0-2000) Body Fluid Mononuclear Cells 95 % Body Fluid Polymorphonuclear Cells 5 % (0-25) Body Fluid Lactate Dehydrogenase 85 IU/L (.) Blood Gas Spontaneous Rate 24 Triglycerides Level 74 mg/dL (< 150) Schistocytes Few Test 07/14/24 03:28 07/12/24 12:40 07/09/24 18:36 07/08/24 06:40 Eosinophils (%) (Auto) 0.0 % (0.0-7.0) Eosinophils # (Auto) 0 10 ^3/uL (0-0.8) Basophils # (Auto) 0 10 ^3/uL (0-0.2) Urine Color Dark-yellow (Yellow) Urine Clarity Turbid (Clear) Urine pH 8.5 (5.0-9.0) Urine Specific Pryor 1.014 (1.001-1.035) Urine Protein 3+ (Negative) Urine Ketones Negative (Negative) Urine Blood 3+ /uL (Negative) Urine Nitrite Negative (Negative) Urine Bilirubin 2+ (Negative) Urine Urobilinogen Normal mg/dL (Negative) Urine Leukocyte Esterase Negative /uL (Negative) Urine RBC 789 /hpf (0 - 3) Urine Microscopic WBC 6 /HPF (0-3) Urine Squamous Epithelial Cells Few /hpf (<5) Urine Bacteria Few /hpf (None Seen) Urine Glucose 2+ mg/dL (Normal) Toxic Granulation Target Cells Few Blood Gas Inspiratory Pressure 23.0 Bl Gas Inspiratory/Expiratory Ratio 1:1.0 Specimen Drawn By lorne rt Test 07/07/24 09:12 07/06/24 05:02 07/03/24 06:23 07/02/24 04:40 Macrocytosis Slight Direct Bilirubin 12.4 mg/dL (<0.3) Tumor Marker Alpha Fetoprotein <1.8 ng/mL (0.0-8.4) Free Prostate Specific Antigen 0.05 ng/mL (N/A) Percent Free Prostate Specific Ag 8.3 % (.) Prostate Specific Antigen Total 0.6 ng/mL (0.0-4.0) Hepatitis A Antibody Total Positive (Negative) Hepatitis B Surface Antigen Negative (Negative) Hepatitis B Surface Antibody Negative (Negative) Hepatitis B Core Total Antibody Negative (Negative) Hepatitis C Antibody Negative (Negative) Test 07/02/24 03:28 07/01/24 17:21 07/01/24 15:13 07/01/24 10:00 Stool Occult Blood Positive (Negative) Stool Occult Blood Sample #3 (Negative) Urine WBC Clumps Present /hpf (None Seen) Urine Transitional Epithelial Cells Few /hpf (<2) Urine Mucus Few (None Seen) Urine Creatinine 83.04 mg/dL (30.0-125.0) Urine Sodium 29 mmol/L (40-220) Urine Total Protein 49.2 mg/dL (1-14) Urine Opiates Screen Neg (NEGATIVE) Urine Fentanyl Screen Neg (NEGATIVE) Urine Barbiturates Screen Neg (NEGATIVE) Urine Phencyclidine Screen Neg (NEGATIVE) Urine Amphetamines Screen Neg (NEGATIVE) Urine Benzodiazepines Screen Neg (NEGATIVE) Urine Cocaine Screen Neg (NEGATIVE) Urine Cannabinoids Screen Neg (NEGATIVE) Blood Gas Liter Flow 6.00 Iron Level 54 ug/dL (65-175) Total Iron Binding Capacity 95 ug/dL (250-425) Percent Iron Saturation 56.8 % (20-55) Ferritin 1619.9 ng/mL (22-322) Troponin I High Sensitivity 13 ng/L (</=54) Vitamin B12 Level 2308 pg/mL (211-911) Vitamin D 25-Hydroxy 28.5 ng/mL (30.0-100) Folic Acid 11.87 ng/mL (>5.38) Test 07/01/24 08:53 06/30/24 21:44 Body Fluid pH 9.0 Body Fluid Glucose 93 mg/dL (.) Body Fluid Total Protein 1.2 g/dL (.) Body Fluid Albumin 0.8 g/dL (Not Estab.) Body Fluid Amylase < 3 U/L (.) Plasma/Serum Blood Alcohol 3.6 mg/dL (<10) Other Laboratory Tests 07/19/24 18:40 07/19/24 12:30 Brief Hx & Hospital Course: This is a 53-year-old male with past medical history of liver cirrhosis due to alcohol use disorder and chronic kidney disease who was admitted with altered mental status. Per EMS, the patient was found at home, family was not reachable, and all collateral information was obtained from the medical records. He had been increasingly lethargic over the prior week. Initial workup revealed spontaneous bacterial peritonitis (SBP), sepsis, and acute hepatic encephalopathy. He was started on broad-spectrum antibiotics (Zosyn and linezolid), albumin, and octreotide for concern of upper GI bleeding. Shortly after admission, he developed septic shock requiring vasopressor support and intubation for progressive encephalopathy He was found to be severely anemic and thrombocytopenic, likely secondary to GI bleeding and underlying liver dysfunction. Blood products were administered including PRBCs, platelets, FFP, and cryoprecipitates. He also developed worsening renal function requiring continuous renal replacement therapy EGD revealed ischemic gastritis with necrotic gastric ulcer. Throughout the ICU course, the patient remained ventilator dependent He showed minimal neurologic recovery. Repeat labs were notable for persistent lactic acidosis, severe metabolic acidosis, and refractory hypotension despite multiple vasopressors. Cultures grew Enterococcus faecium in the urine; he remained on vancomycin and meropenem. His condition further deteriorated with multi-organ failure, including hepatic encephalopathy, renal failure, respiratory failure, and severe coagulopathy with possible DIC. He needed 5 vasopressors Dialysis was performed on the day of with poor clearance. Despite maximal medical management, the patient remained in critical condition. On July 19, 2024, after a family meeting, the patient's sister, acting as POA, agreed to transition to comfort measures only. The patient was terminally extubated and in the ICU at 20:49. Case discussed with Dr Riojas Consults/Reason for consult GI due to gi bleeding Nephrology due to uremic encephalopathy Pulm crit: ICU status Neurology: encephalopathy Operations or Procedures CT SCAN ABDOMEN AND PELVIS WITHOUT CONTRAST CLINICAL HISTORY: DISTENSION TECHNIQUE: Helical axial images are obtained from the lung bases through the pelvis without oral contrast. No intravenous contrast was administered. Coronal and sagittal reformatted images were generated from thin section reconstructions. One or more of the following radiation dose reduction techniques were used for this examination: automated exposure control, adjustment of the mA and/or kV according to patient size, use of iterative reconstruction technique. COMPARISON: CT ABD PELVIS WO CONTRAST on DOS: 03/30/22 FINDINGS: LOWER THORAX: Small bilateral pleural effusions with atelectasis/ scarring in the imaged lung bases. Visualized heart is mildly enlarged. ABDOMEN AND PELVIS: Evaluation of visceral and vascular structures is limited due to lack of contrast administration. Streak artifact also limits evaluation. Large volume abdominopelvic ascites. Cirrhotic appearance of the liver. No discrete hepatic lesions as visualized. Unenhanced spleen and adrenals appear grossly unremarkable. Changes of chronic calcified pancreatitis again noted. No sizable, radiopaque cholelithiasis or biliary ductal dilatation appreciated. No hydroureteronephrosis or sizable, obstructing urinary tract calculi identified. No evidence of abdominal aortic aneurysm. No evidence of small-bowel obstruction. Thickening of the colon most notably involving the ascending and descending portions. Pericolonic fat stranding also noted. The appendix is not clearly delineated. No free intraperitoneal air identified. No sizable bladder calculus. Bilateral inguinal hernia defects containing fluid. No destructive osseous lesions identified. IMPRESSION: Small bilateral pleural effusions partially imaged. Cirrhosis with large volume abdominopelvic ascites. Colonic thickening with pericolonic fat stranding. Correlate for colitis. Portal colopathy may also appear similarly. A few other findings as above. INDICATION: rule out cholecystitis, pain TECHNIQUE: Multiple real-time sonographic images were obtained of the right upper quadrant. COMPARISON: 06/30/24 FINDINGS: Hepatic cirrhosis. The liver demonstrates coarsened echotexture without focal mass lesions. The liver measures 18 cm. There is no intrahepatic or extrahepatic ductal dilatation. The common duct is not well visualized due to obscuration from bowel gas. Gallbladder sludge The gallbladder wall measures 4 mm and is mildly thickened which is nonspecific in the setting of chronic liver disease. The right kidney measures 9.0 cm. Increased echogenicity of the right kidney suggestive of chronic medical renal disease. No hydronephrosis. The pancreas is not well visualized due to overlying bowel gas. IMPRESSION: Hepatic cirrhosis with large volume ascites. Gallbladder sludge. Nonspecific gallbladder wall thickening which can be seen in the setting of chronic liver disease. Final Diagnosis/Problems List #Acute metabolic encephalopathy due to hepatic and uremic encephalopathy #Shock, likely multifactorial septic, hypovolemic #Acute hypoxic respiratory failure requiring mechanical ventilation #Vent dependent, intubated #Severe anemia, likely due to GI bleeding #Thrombocytopenia due to liver failure #severe DIC #Septic shock, likely secondary to UTI and spontaneous bacterial peritonitis #Possible aspiration pneumonia: gram+/gram - #SBP #Liver cirrhosis secondary to alcohol use #Massive ascites #esophageal varices ruled out #Upper GI bleed, unspecified location #ischemic gastritis #necrotic antrum ulcer #gallbladder wall thickening #CLIFFORD on CKD, likely multifactorial: uremia, hypotension, sepsis #Hyperkalemia #Uremic encephalopathy #Emergency dialysis #severe metabolic acidosis #Hypoglycemia #Severe malnutrition Discharge Disposition: at Hospital Date of Service: Jul 19, 2024 Billing Provider: ROBERT RIOJAS DO Common Visit Codes: 31588-BLH/OBS DISCH DAY >30min, [id number] CARE 30-74 MIN AUDRA CRANDALL RESIDENT Jul 20, 2024 00:09 ROBERT RIOJAS DO Jul 20, 2024 07:43
== END 2024-07-19 22:30 | DRG 280 ==
LOC: ER 21:01 → EDBD 21:01 → OVERFLOW 07-01 02:34 → TELE-WESTW 07-01 03:56 → ICU WEST 07-07 09:37
PROVIDERS: ADMIT Student in an Organized Health Care Education/Training Program; ATTEND Student in an Organized Health Care Education/Training Program
PROC: 0W9G3ZZ Drainage of Peritoneal Cavity, Percutaneous Approach (ICD-10-PCS; 2024-07-01)
PROC: 30233N1 Transfusion of Nonautologous Red Blood Cells into Peripheral Vein, Percutaneous Approach (ICD-10-PCS; 2024-07-01)
PROC: 5A1955Z Respiratory Ventilation, Greater than 96 Consecutive Hours (ICD-10-PCS; principal; 2024-07-07)
PROC: 02HV33Z Insertion of Infusion Device into Superior Vena Cava, Percutaneous Approach (ICD-10-PCS; 2024-07-07)
PROC: 0BH17EZ Insertion of Endotracheal Airway into Trachea, Via Natural or Artificial Opening (ICD-10-PCS; 2024-07-07)
PROC: 03HY32Z Insertion of Monitoring Device into Upper Artery, Percutaneous Approach (ICD-10-PCS; 2024-07-07)
PROC: 5A1D70Z Performance of Urinary Filtration, Intermittent, Less than 6 Hours Per Day (ICD-10-PCS; 2024-07-07)
PROC: 30233K1 Transfusion of Nonautologous Frozen Plasma into Peripheral Vein, Percutaneous Approach (ICD-10-PCS; 2024-07-08)
PROC: 5A1D70Z Performance of Urinary Filtration, Intermittent, Less than 6 Hours Per Day (ICD-10-PCS; 2024-07-09)
PROC: 30233R1 Transfusion of Nonautologous Platelets into Peripheral Vein, Percutaneous Approach (ICD-10-PCS; 2024-07-10)
PROC: 0W9G3ZZ Drainage of Peritoneal Cavity, Percutaneous Approach (ICD-10-PCS; 2024-07-10)
PROC: 0DB38ZX Excision of Lower Esophagus, Via Natural or Artificial Opening Endoscopic, Diagnostic (ICD-10-PCS; 2024-07-10)
PROC: 05HC33Z Insertion of Infusion Device into Left Basilic Vein, Percutaneous Approach (ICD-10-PCS; 2024-07-10)
PROC: B54NZZA Ultrasonography of Left Upper Extremity Veins, Guidance (ICD-10-PCS; 2024-07-10)
PROC: 5A1D70Z Performance of Urinary Filtration, Intermittent, Less than 6 Hours Per Day (ICD-10-PCS; 2024-07-12)
PROC: 0W9G3ZZ Drainage of Peritoneal Cavity, Percutaneous Approach (ICD-10-PCS; 2024-07-12)
PROC: 30233M1 Transfusion of Nonautologous Plasma Cryoprecipitate into Peripheral Vein, Percutaneous Approach (ICD-10-PCS; 2024-07-13)
PROC: 5A1D70Z Performance of Urinary Filtration, Intermittent, Less than 6 Hours Per Day (ICD-10-PCS; 2024-07-14)
PROC: 0DB98ZX Excision of Duodenum, Via Natural or Artificial Opening Endoscopic, Diagnostic (ICD-10-PCS; 2024-07-14)
PROC: 0DB68ZX Excision of Stomach, Via Natural or Artificial Opening Endoscopic, Diagnostic (ICD-10-PCS; 2024-07-14)
PROC: 5A1D70Z Performance of Urinary Filtration, Intermittent, Less than 6 Hours Per Day (ICD-10-PCS; 2024-07-15)
PROC: 5A1D70Z Performance of Urinary Filtration, Intermittent, Less than 6 Hours Per Day (ICD-10-PCS; 2024-07-16)
PROC: 5A1D70Z Performance of Urinary Filtration, Intermittent, Less than 6 Hours Per Day (ICD-10-PCS; 2024-07-17)
PROC: 0W9G3ZZ Drainage of Peritoneal Cavity, Percutaneous Approach (ICD-10-PCS; 2024-07-17)
PROC: 5A1D70Z Performance of Urinary Filtration, Intermittent, Less than 6 Hours Per Day (ICD-10-PCS; 2024-07-19)
DX: K70.31 Alcoholic cirrhosis of liver with ascites (principal); K70.40 Alcoholic hepatic failure without coma; J96.01 Acute respiratory failure with hypoxia; D65 Disseminated intravascular coagulation [defibrination syndrome]; K76.7 Hepatorenal syndrome; J69.0 Pneumonitis due to inhalation of food and vomit; A41.9 Sepsis, unspecified organism; N17.0 Acute kidney failure with tubular necrosis; G93.41 Metabolic encephalopathy; E43 Unspecified severe protein-calorie malnutrition; K22.11 Ulcer of esophagus with bleeding; R57.8 Other shock; R65.21 Severe sepsis with septic shock; K25.4 Chronic or unspecified gastric ulcer with hemorrhage; K65.2 Spontaneous bacterial peritonitis; F10.20 Alcohol dependence, uncomplicated; E83.39 Other disorders of phosphorus metabolism; E86.1 Hypovolemia; K82.8 Other specified diseases of gallbladder; F41.9 Anxiety disorder, unspecified; J15.69 Pneumonia due to other Gram-negative bacteria; J15.9 Unspecified bacterial pneumonia; D50.0 Iron deficiency anemia secondary to blood loss (chronic); N18.9 Chronic kidney disease, unspecified; B95.2 Enterococcus as the cause of diseases classified elsewhere; D63.8 Anemia in other chronic diseases classified elsewhere; D68.4 Acquired coagulation factor deficiency; E87.4 Mixed disorder of acid-base balance; E87.70 Fluid overload, unspecified; G93.1 Anoxic brain damage, not elsewhere classified; J96.02 Acute respiratory failure with hypercapnia; K76.82 Hepatic encephalopathy; M20.41 Other hammer toe(s) (acquired), right foot; N39.0 Urinary tract infection, site not specified; E87.5 Hyperkalemia; E16.2 Hypoglycemia, unspecified; G93.49 Other encephalopathy; K29.60 Other gastritis without bleeding; K44.9 Diaphragmatic hernia without obstruction or gangrene; Z68.23 Body mass index [BMI] 23.0-23.9, adult; Z99.11 Dependence on respirator [ventilator] status; Z79.899 Other long term (current) drug therapy; Y90.0 Blood alcohol level of less than 20 mg/100 ml
CPT/HCPCS: 36415; 36556; 36600; 36620; 49083; 70450; 71045; 74176; 76705; 76775; 80048; 80053; 80076; 80202; 80307; 80320; 81001; 82040; 82105; 82140; 82150; 82247; 82270; 82306; 82570; 82607; 82728; 82746; 82805; 82962; 83540; 83550; 83605; 83735; 83986; 84100; 84132; 84154; 84156; 84300; 84478; 84484; 85007; 85014; 85018; 85025; 85027; 85384; 85610; 85730; 86704; 86706; 86708; 86803; 86850; 86900; 86901; 86920; 87040; 87070; 87077; 87081; 87086; 87088; 87186; 87205; 87340; 89051; 90935; 94002; 94003; 94640; 95819; 96365; 99291; G0378; J0171; J1100; J1642; J1815; J2185; J2250; J2470; J2543; J2704; J3430; J7060; J7131; P9047